=== PATIENT | female | born 1945 | race Caucasian/White ===

== ENCOUNTER 2021-01-12 14:02 | Inpatient (IN) | payer MEDICARE, SELFPAY ==
[2021-01-12] VITALS (9 sets, daily range): BP systolic 67–104; BP diastolic 39–59; PULSE 60–85; RESP 15–18; TEMP 36.1–36.6; O2SAT 94–100; BMI 20.2
--- NOTE | 2021-01-12 14:12 | ED.RN ---
IF PT NEEDS A RIDE HOME HER NEIGHBOR MURALI CAN BE CONTACTED AT [phone]
--- NOTE | 2021-01-12 14:23 | EKG12_ITS ---
Test Reason : HYPOTENSION Blood Pressure : / mmHG Vent. Rate : 061 BPM Atrial Rate : 061 BPM P-R Int : 192 ms QRS Dur : 090 ms QT Int : 446 ms P-R-T Axes : 080 073 062 degrees QTc Int : 448 ms Normal sinus rhythm Normal ECG Confirmed by PARDEEP VIVAR, CARMELINA ([id number]), proposal editor STEVE WEISS ([id number]) on 01/16/2021 2:14:26 PM Referred By: BERT Confirmed By:CARMELINA ROBERTO MD
--- NOTE | 2021-01-12 14:23 | CT_ITS ---
STUDY: CT BRAIN WITHOUT CONTRAST REASON FOR EXAM: Female, 75 years old. headache RADIATION DOSAGE (If Supplied By Facility): CTDIvol = ( 38.43 ) mGy, DLP = ( 683.87 ) mGycm TECHNIQUE: Transaxial CT imaging of the brain was performed without administration of intravenous contrast material. Individualized dose optimization techniques were used for this CT. COMPARISON: No relevant priors. FINDINGS: Normal soft tissue structures. Normal calvarium. There is mild cerebral atrophy with widening of the extra-axial spaces and ventricular dilatation. There are areas of decreased attenuation within the white matter tracts of the supratentorial brain, consistent with microvascular disease changes. Normal basal ganglia and thalami. Normal brainstem. Normal cerebellum. There is no intracranial hemorrhage. There are no findings of an acute ischemic infarction. Normal visualized paranasal sinuses. CT/Brain/Head without Contrast IMPRESSION: Chronic involutional changes of the brain. Electronically Signed: Bharat Rodriguez MD at 15:28 EDT Tel , Service support ,
[2021-01-12] MEDS: 0.9% Normal Saline 1,000 ML 1000 ML IV (14:39)
[2021-01-12 14:49] LABS: Basophil# 0.06 X10^3/uL; Basophil% 0.9 % (0-1); Eosinophil# 0.02 X10^3/uL; Eosinophils% 0.3 % (0-5); Hematocrit 40.1 % (37-47); Hemoglobin 13.4 g/dL (12.0-15.0); Lymphocyte % 27.8 % (19-41); Mean Corp Hgb Conc 33.4 g/dL (32-36); Mean Corpuscular Hgb 29.8 pg (27.0-32.0); Mean Corpuscular Volume 89.1 fL (81-99); Mean Platelet Vol. 10.1 fl (6.2-12.0); Monocyte# 0.62 X10^3/uL; Monocyte% 9.6 % (0-10); NRBC Flagged by Analyzer 0 % (0-5); Neutrophil # 3.96 X10^3/uL (2.7-7.7); Neutrophil % 61.1 % (47-70); Platelet Count 269 K/mm3 (150-450); RBC Distribution Width CV 12.5 % (11.6-14.6); White Blood Count 6.5 K/mm3 (4.4-11.0)
--- NOTE | 2021-01-12 14:50 | RAD_ITS ---
STUDY: X-RAY CHEST REASON FOR EXAM: Female, 75 years old. hypotension TECHNIQUE: Single AP portable view of the chest. COMPARISON: 03/10/2015 FINDINGS: The lungs are clear and expanded. There is no demonstrated pleural abnormality. Normal size heart. Normal mediastinum and shaun. Normal visualized pulmonary arteries. Normal visualized aortic arch and descending thoracic aorta. Normal visualized thoracic spine. Normal visualized ribs, clavicles, and shoulders. There is no demonstrated abnormality of the visualized soft tissue structures of the upper abdomen. RAD/Chest 1 View (Portable) IMPRESSION: Normal x-ray examination of the chest. Electronically Signed: Bharat Rodriguez MD at 15:28 EDT Tel , Service support ,
[2021-01-12 15:04] LABS: ALB/GLOB Ratio 1.4 RATIO (0.9-2.4); AST(SGOT) 24 U/L (15-37); Alanine Aminotransfer ALT/SGPT 27 U/L (13-56); Albumin, Serum 4.3 g/dL (3.2-5.0); Alkaline Phosphatase 87 U/L (45-117); Anion Gap 13 (5-15); BUN 91 mg/dL (7-18); BUN/Creat Ratio 25.6 RATIO (10-20); Calcium,Total 9.6 mg/dL (8.5-10.1); Chloride 105 mmol/L (98-107); Creatinine, Serum 3.55 mg/dL (0.55-1.02); EST Glomerular Filtration Rate 13 mL/min (>60); Est Glom Filt Rate - Afr Amer 16 mL/min (>60); Estimated Creatinine Clearance 9.56 ml/min; Glucose 92 mg/dL (74-106); Potassium 3.6 mmol/L (3.5-5.1); Protein, Total 7.3 g/dL (6.4-8.2); Sodium Level 133 mmol/L (136-145)
[2021-01-12 15:08] LABS: Lactic Acid 1.1 mmol/L (0.4-1.9)
--- NOTE | 2021-01-12 15:16 | ED.VISSUMM ---
- ER Visit Summary Date of Service: 01/12/21 Chief Complaint: [] History of Present Illness: The patient is a 75 F [low blood pressure the emergency department complaint of low blood pressure that she thinks has been going on for couple weeks. Patient feels lightheaded and dizzy at times. This point she woke up with a headache and pain in the back of her neck that seems to improved. Patient states that she had been treated for high blood pressure and had a hard time controlling that but then her blood pressure became too low. She complains of fatigue. She denies any blood in her stool or black tarry stool. She denies recent illness. She denies fever. She denies vomiting or diarrhea. She denies abdominal pain.] Physical Examination: [HEENT-PERRLA, EOMI. Cranial nerves II through XII grossly intact. TMs clear. Mucous membranes moist. No adenopathy. Cardiovascular-regular rate and rhythm without murmur or ectopy Lungs-clear to auscultation, chest wall stable without crepitus or subcu emphysema Abdomen-normoactive bowel sounds, soft. Patient has some mild diffuse abdominal discomfort. There is no rebound, rigidity, or peritoneal signs. Extremities-intact ?4, normal range of motion, normal pulses, atraumatic] Test Results: [EKG obtained on arrival showed a sinus rhythm with a ventricular rate of 61 bpm with no acute segment changes. CBC with differential obtained showed a white count of 6.5, hemoglobin 13, hematocrit 40, placed 269. Chemistries unremarkable. BUN was 91 and creatinine 3.55. CO2 was 15. Troponin less than 0.015. Chest x-ray 1 view obtained interpreted by myself as no acute disease process. CT scan of the brain without contrast evaluated by myself I do not appreciate any intracranial hemorrhage or acute disease process but official report pending radiology.] Emergency Department Course and Treatment: [IV line established. Patient was given a liter mostly fluid bolus.] Treatment Plan: [Patient's blood pressure did improve with IV fluids. Patient will be admitted.] Disposition: [Admit] Impression: [Hypotension Acute kidney injury] This note was generated with PressPad dictation software. It may contain incorrect words, spelling, and punctuation that were not noted in review of the chart prior to signing ED Disposition - Plan for ED Patient: Referrals: Kurt Harris MD [Primary Care Provider] -
[2021-01-12 15:47] LABS: Bacteria 0 SEEN /hpf (None Seen); Mucous, Urine 0 SEEN /hpf (<or=2+); Red Blood Cells-Urine 0 SEEN /hpf (0-5)
[2021-01-12 15:49] LABS: Color, Urine Yellow (Yellow); Glucose, Dipstick Normal (Normal); Ketone-Dipstick Negative (Negative); Leukocyte Esterase-Dipstick 25 /ul (Negative); Nitrite-Dipstick Negative (Negative); Occult Blood-Urine Negative /ul (Negative); Protein-Dipstick Negative (Negative); Specific Gravity, Urine 1.015 (1.002-1.030); Urine Bilirubin Dipstick Negative (Negative); Urine Clarity Clear (Clear); Urine Urobilinogen Normal (Normal)
--- NOTE | 2021-01-12 15:58 | HP.PCM_ITS ---
Problem List (1) Hypertension Status: Chronic (2) Hyperlipidemia Status: Chronic (3) Hypothyroidism Status: Chronic (4) Depression Status: Chronic History of Present Illness Date of Admission: 01/12/21 Chief Complaint: Lightheadedness, dizziness, low blood pressure. The patient is a 75 year old F who presents to the emergency room due to low blood pressure with associated lightheadedness, dizziness. Patient states she has had several falls at home related to this. She denies injury related to her falls. She denies known syncope. Patient states the symptoms have been ongoing for the past 2 weeks. She denies vision changes, speech changes, unilateral weakness. Patient explains an extensive dental history including history of implants with 1 implant remaining. She states she has been attempting for 2 years to get this out as it is painful and has become infected in the past. She has dentures that fit over the implant however she states it is very uncomfortable and they are poor fitting which causes her to eat very little. She states she is unable to eat meats and has very poor oral intake due to dentition. She has a past medical history of hypertension, hyperlipidemia, depression, hypothyroidism. Past Medical History Past Medical History (Chronic Problems): Chronic Problems Hypertension (Chronic) Hyperlipidemia (Chronic) Hypothyroidism (Chronic) Depression (Chronic) Allergies cephalexin [From Keflex] Allergy (Verified 01/12/21 14:04) NEEDS FOLLOW-UP citalopram Allergy (Verified 01/12/21 14:04) Angioedema sulfamethoxazole [From Bactrim] Allergy (Verified 01/12/21 14:04) NEEDS FOLLOW-UP trimethoprim [From Bactrim] Allergy (Verified 01/12/21 14:04) NEEDS FOLLOW-UP duloxetine [From Cymbalta] Adverse Reaction (Verified 01/12/21 14:04) Other MAKES PT FEEL GROGGY Home Medications: Ambulatory Orders Medication Instructions Recorded Ascorbic Acid [Vitamin C] 500 mg PO DAILY 01/12/21 Aspirin E.C. [Ecotrin] 81 mg PO DAILY@0800 01/12/21 Atorvastatin Calcium [Lipitor] 40 mg PO QHS 01/12/21 Fluoxetine [Prozac] 20 mg PO DAILY 01/12/21 Levothyroxine [Synthroid] 50 mcg PO DAILY 01/12/21 Lisinopril [Zestril] 5 mg PO DAILY 01/12/21 Melatonin 5 mg PO QHS 01/12/21 Mirabegron [Myrbetriq] 50 mg PO DAILY 01/12/21 Potassium Chloride [K-Tab ER] 40 meq PO BID 01/12/21 Vitamin E Acetate [Vitamin E] 200 unit PO DAILY 01/12/21 Surgical History: - - Left eye cataract, dental implants, hysterectomy, appendectomy, left scalp skin excision. 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 Denies: Chills, Fever HEENT: Reports: - - Dental pain. Denies: Head Aches, Sinus Congestion, Sinus Drainage Cardiovascular: Reports: Light Headedness. Denies: Chest Pain, Palpitations Respiratory: Denies: Cough, Shortness of breath at rest, Sputum production Gastrointestinal: Denies: Abdominal Pain, Nausea, Vomiting Genitourinary: Denies: Dysuria Musculoskeletal: Denies: Joint Pain, Joint Tenderness Skin: Denies: Rash, Wounds Neurological: Denies: Blurred vision, Double vision, Change in Speech, Slurred speech, Focal weakness, Numbness, Tingling Psychiatric: Reports: Depression Hematologic/ Lymphatic: Denies: Easy Bruising, Easy Bleeding VTE Information - Inpt Only VTE Present on Admission: No VTE Mechan Device Prophylaxis: None VTE Pharm Prophylaxis ordered?: Yes - Physical Exam Vitals/I&O's: Vital Signs Temp Pulse Resp BP Pulse Ox 97.9 F 63 16 104/59 L 96 01/12/21 15:54 01/12/21 15:54 01/12/21 15:54 01/12/21 15:54 01/12/21 15:54 Oxygen Delivery Method Room Air Weight: 99 lb Body Mass Index (BMI) 20.0 General: Alert, Oriented x3, Cooperative HEENT: Atraumatic, PERRLA, EOMI, Normocephalic Neck: Supple, No JVD, Negative Carotid Bruits Lungs: Clear to auscultation, Normal air movement Cardiovascular: Regular rate, No murmurs Abdomen: Bowel Sounds Present, Soft, Non Tender, Non-Distended Extremities: No clubbing, No cyanosis, No edema, Capillary Refill Less than 3 Seconds Skin: No rashes, No breakdown Musculoskeletal: No Tenderness to Palpation of Joints or Extremities, Cachexia, Muscle Wasting Neurological: Cranial nerves II-XII grossly intact, Neuro grossly intact Psych/Mental Status: Normal Affect, Appropriate Laboratory Results 01/12/21 14:25: WBC 6.5, RBC 4.50, Hgb 13.4, Hct 40.1, MCV 89.1, MCH 29.8, MCHC 33.4, RDW Std Deviation 41.0, RDW Coeff of Lobo 12.5, Plt Count 269, MPV 10.1, Immature Gran % (Auto) 0.300, Neut % (Auto) 61.1, Lymph % (Auto) 27.8, Burt % (Auto) 9.6, Eos % (Auto) 0.3, Baso % (Auto) 0.9, Absolute Neuts (auto) 4.0, Absolute Lymphs (auto) 1.80, Nucleated RBC % 0 01/12/21 14:25: Sodium 133 L, Potassium 3.6, Chloride 105, Carbon Dioxide 15.0 L , Anion Gap 13, BUN 91 H, Creatinine 3.55 H, Estim Creat Clear Calc 9.56, Est GFR (MDRD) Af Amer 16 L, Est GFR (MDRD) Non-Af 13 L, BUN/Creatinine Ratio 25.6 H , Glucose 92, Calcium 9.6, Total Bilirubin 0.50, AST 24, ALT 27, Alkaline Phosphatase 87, Troponin I < 0.015, Total Protein 7.3, Albumin 4.3, Globulin 3.0, Albumin/Globulin Ratio 1.4 01/12/21 14:25: Lactic Acid 1.1 01/12/21 14:25: Blood Type Pending, Antibody Screen Pending 01/12/21 15:42: Urine Color Yellow, Urine Clarity Clear, Urine pH 5.0, Ur Specific [place] 1.015, Urine Protein Negative, Urine Glucose (UA) Normal, Urine Ketones Negative, Urine Occult Blood Negative, Urine Nitrite Negative, Urine Bilirubin Negative, Urine Urobilinogen Normal, Ur Leukocyte Esterase 25 H, Urine RBC Pending, Urine WBC Pending, Ur Squamous Epith Cells Pending, Urine Bacteria Pending, Urine Mucus Pending Assessment/Plan 1. Hypotension-unclear etiology. Possibly due to hypovolemia. IV fluids. Hold BP regimen. Check orthostatic vitals in a.m. Check TSH. Obtain echocardiogram. 2. Acute kidney injury-suspect secondary to poor oral intake. IV fluids, trend BMP. If not improved, will need urine studies, renal ultrasound, etc. 3. Severe protein, malnutrition with significant weight loss, related to dental pain/poor fitting dentures with implant in place- -42 lb weight loss. Nutrition consult. Oral surgery referral. 4. Hypertension-BP regimen on hold. 5. Hyperlipidemia-continue statin. 6. Depression-continue fluoxetine. 7. Hypothyroidism-continue Synthroid regimen. Check TSH. DVT prophylaxis- Lovenox sc This patient was seen by TAMIKA Velazco under the supervision of Dr. Johnson.
[2021-01-12 16:01] LABS: Hyaline Cast 0-5 SEEN /lpf (0-5); Squamous Epithelial Cells - UA 0-5 SEEN /hpf (5-10); White Blood Cells 0-5 SEEN /hpf (0-5)
[2021-01-12 16:39] LABS: Magnesium 2.9 mg/dL (1.6-2.6)
[2021-01-12 16:43] LABS: Urine Sodium 16 mmol/L (Not Establ.)
[2021-01-12] MEDS: 0.9% Normal Saline 1,000 ML 125 ML IV ×2 (16:47→22:33)
[2021-01-12] MEDS: 0.9% Saline Lock 10 ML Syringe IV (17:08)
[2021-01-12] MEDS: Ondansetron 4 MG/2 ML Vial IV (17:08)
--- NOTE | 2021-01-12 18:16 | NT.THERAPY_ITS ---
Nutrition Therapy Report - History Nutrition Services has been consulted to:: Manage nutrient details of diet order Current diet / nutrition support order:: regular- minced/moist, ensure enlive 120mL 4x/day - Anthropometric Measurements Height:: 4 ft 11 in Weight:: 45.359 kg Body Mass Index (BMI):: 20.2 - Relevant Labs Relevant Labs:: Sodium 133 mmol/L (136-145) L 01/12/21 14:25 Carbon Dioxide 15.0 mmol/L (21.0-32.0) L 01/12/21 14:25 BUN 91 mg/dL (7-18) H 01/12/21 14:25 Creatinine 3.55 mg/dL (0.55-1.02) H 01/12/21 14:25 Est GFR (MDRD) Af Amer 16 mL/min (>60) L 01/12/21 14:25 Est GFR (MDRD) Non-Af 13 mL/min (>60) L 01/12/21 14:25 BUN/Creatinine Ratio 25.6 RATIO (10-20) H 01/12/21 14:25 Magnesium 2.9 mg/dL (1.6-2.6) H 01/12/21 14:25 - Assessment Food / Nutrition-Related History:: Pt describes poor PO intake COUNTER WEIGHER d/t poor dentition. Pt has dental implants to lower jaw that have been infected and partially removed. Pt states she consumes only soft foods, cannot eat meat d/t chewing difficulty. Was 118# ~3 months ago, CBW 100#-18#/15% wt loss is significant for severe malnutrition. Aside from poor dentition, pt appears peculiar about foods. Does not like anything crumbly touching throat. 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 Tries to drink 2 bottles of Premier Protein at home but doesn't like drink if it gets to room temperature but will not pour over ice to keep cold. Only likes vanilla flavor. - Nutrition Diagnosis Problem / Etiology / Signs & Symptoms (PES):: severe, cute malnutrition r/t inadequate energy intake d/t impaired dentition as evidenced by estimated PO intake meeting <75% of pts nutritional needs x 3 months, unintentional wt loss of 18#/15% x 3 months. Evidence of Malnutrition Exists:: Yes Severe PCM:: Acute Illness - Nutrition Intervention Nutrition Prescription:: [id number] calories/day (1.3xRMR). 45-55 g protein/day (1g/kg). 1125mL fluid/day (25mL/kg) - Food / Nutrient Delivery Interventions Summary of nutrition intervention:: Extensive discussion w/ pt regarding nutritional status. Pt agreeable to trying modified textures as ordered, but did not appear interested in dinner meat when presented. Agreeable to trying Ensure Enlive w/ medpass- vanilla only. Reviewed other ONS options- will try magic cup. Nutrition support ordered as / adjusted to:: continue regular diet (minced/moist) as pt tolerates; will continue ensure w/ medpass and add magic cup w/ lunch for additional protein/calories Nutrition education provided?: Yes - MNT Monitoring Further MNT monitoring and evaluation required?: Yes MNT Follow-up in:: 1-2 days
[2021-01-12] MEDS: Atorvastatin Calcium 40 MG Tablet PO (22:33)
[2021-01-12] MEDS: MELATONIN 10 MG TABLET 5 MG PO (22:33)
[2021-01-13] VITALS (14 sets, daily range): BP systolic 74–124; BP diastolic 38–93; PULSE 54–101; RESP 15–18; TEMP 36.6–36.7; O2SAT 93–100
--- NOTE | 2021-01-13 05:55 | ECHOD_ITS ---
Reason For Study: SYNCOPE/NEAR SYNCOPE Procedure This was a 2D Doppler, Color Flow transthoracic echocardiogram. The exam was of adequate technical quality. Exam performed portable in patient room. Left Ventricle Normal LV size. Left ventricular systolic function is normal. The estimated ejection fraction is 65 %. No evidence for diastolic dysfunction. No regional wall motion abnormalities noted. Right Ventricle Normal RV size. Normal systolic function. Atria Normal left atrium. Normal right atrium. No doppler evidence for ASD. Mitral Valve There is no mitral annular calcification. Mild diffuse mitral valve thickening. Trivial mitral valve insufficiency. Tricuspid Valve Normal tricuspid valve. Trivial tricuspid valve insufficiency. Right ventricular systolic pressure estimated to be 32 mmHg. Aortic Valve Trisinus/trileaflet aortic valve. Mild focal aortic valve calcification. Trivial aortic valve insufficiency. Pulmonic Valve The pulmonic valve is not well visualized. Great Vessels Normal sized aortic root. Pericardium/Pleural No pericardial effusion. MMode/2D Measurements & Calculations LVIDd: 3.5 cm IVSd: 0.81 cm Ao root diam: 3.0 cm LVIDs: 2.2 cm LVPWd: 0.90 cm RVDd: 2.6 cm FS: 39.2 % LAV(MOD-bp): 25.2 ml LVAd ap4: 22.3 cm2 SV(MOD-sp4): 43.6 ml LAV(MOD-bp) Indexed: 18.3 ml/m2 EDV(MOD-sp4): 58.5 ml LAV(MOD-sp2): 27.0 ml EDV(sp4-el): 59.1 ml LAV(MOD-sp4): 23.8 ml LVAs ap4: 9.6 cm2 ESV(MOD-sp4): 14.9 ml ESV(sp4-el): 14.4 ml EF(MOD-sp4): 74.6 % EF(sp4-el): 75.7 % SV(sp4-el): 44.7 ml LA A4 area: 11.3 cm2 LA dimension(2D): 3.4 cm RA A4 area: 8.5 cm2 Time Measurements MV dec time: 0.23 sec Doppler Measurements & Calculations MV E max prabhakar: 73.7 cm/sec Lat Peak E' Prabhakar: 11.0 cm/sec Med Peak E' Prabhakar: 8.4 cm/sec MV A max prabhakar: 92.5 cm/sec E/E' lat: 6.7 E/E' med: 8.8 MV E/A: 0.80 Ao V2 max: 146.1 cm/sec AI max prabhakar: 283.5 cm/sec LV V1 max: 137.5 cm/sec Ao max P.6 mmHg AI max P.1 mmHg LV V1 max P.6 mmHg AI dec slope: 206.0 cm/sec2 AI P1/2t: 403.0 msec PA V2 max: 102.9 cm/sec TR max prabhakar: 267.9 cm/sec TR max P.7 mmHg ECHO/Echo Complete Interpretation Summary Left ventricular systolic function is normal. The estimated ejection fraction is 65 %. Mild diffuse mitral valve thickening. Trivial mitral valve insufficiency. Trivial tricuspid valve insufficiency. Mild focal aortic valve calcification. Trivial aortic valve insufficiency. Right ventricular systolic pressure estimated to be 32 mmHg. No evidence for diastolic dysfunction. Ordering Physician: Carolann Johnson Referring Physician: JAYME SARAVIA Performed By: Shila Hitchcock RDCS
--- NOTE | 2021-01-13 05:55 | EKG12_ITS ---
Test Reason : AM EKG Blood Pressure : / mmHG Vent. Rate : 058 BPM Atrial Rate : 058 BPM P-R Int : 202 ms QRS Dur : 094 ms QT Int : 472 ms P-R-T Axes : 067 056 047 degrees QTc Int : 463 ms Sinus bradycardia Otherwise normal ECG When compared with ECG of 12-JAN-2021 14:32, MANUAL COMPARISON REQUIRED, DATA IS UNCONFIRMED Confirmed by PARDEEP VIVAR, CARMELINA ([id number]), editorial assistant KB CASTILLO ([id number]) on 01/18/2021 1:10:55 PM Referred By: DR ARMAS Confirmed By:CARMELINA ROBERTO MD
[2021-01-13 06:23] LABS: Absolute Lymphocyte Count 2.06 X10^3/uL (0.83-4.51); Absolute Neutrophil Count 2.3 X10^3/uL (2.0-7.7); Basophil# 0.02 X10^3/uL; Basophil% 0.4 % (0-1); Eosinophil# 0.05 X10^3/uL; Hematocrit 31.9 % (37-47); Hemoglobin 10.5 g/dL (12.0-15.0); Lymphocyte # 2.06 X10^3/ul (4.0); Lymphocyte % 40.8 % (19-41); Mean Corp Hgb Conc 32.9 g/dL (32-36); Mean Corpuscular Hgb 29.7 pg (27.0-32.0); Mean Corpuscular Volume 90.1 fL (81-99); Mean Platelet Vol. 10.4 fl (6.2-12.0); Monocyte# 0.57 X10^3/uL; Monocyte% 11.3 % (0-10); NRBC Flagged by Analyzer 0 % (0-5); Neutrophil # 2.34 X10^3/uL (2.7-7.7); Neutrophil % 46.3 % (47-70); Platelet Count 175 K/mm3 (150-450); RBC Distribution Width CV 12.4 % (11.6-14.6); RBC Distribution Width SD 41.1 fl (35.1-43.9); Red Blood Count 3.54 M/mm3 (4.2-5.4); White Blood Count 5.1 K/mm3 (4.4-11.0)
[2021-01-13] MEDS: 0.9% Normal Saline 1,000 ML 125 ML IV ×3 (06:35→22:37)
[2021-01-13] MEDS: Levothyroxine 50 MCG Tablet PO (06:36)
[2021-01-13 07:00] LABS: ALB/GLOB Ratio 1.4 RATIO (0.9-2.4); AST(SGOT) 22 U/L (15-37); Alanine Aminotransfer ALT/SGPT 20 U/L (13-56); Alkaline Phosphatase 60 U/L (45-117); Anion Gap 10 (5-15); BUN 82 mg/dL (7-18); BUN/Creat Ratio 34.3 RATIO (10-20); Calcium,Total 8.4 mg/dL (8.5-10.1); Chloride 115 mmol/L (98-107); Creatinine, Serum 2.39 mg/dL (0.55-1.02); EST Glomerular Filtration Rate 21 mL/min (>60); Est Glom Filt Rate - Afr Amer 25 mL/min (>60); Estimated Creatinine Clearance 15.14 ml/min; Globulin 2.2 g/dL (2.2-4.2); Glucose 69 mg/dL (74-106); Potassium 3.3 mmol/L (3.5-5.1); Protein, Total 5.2 g/dL (6.4-8.2); Sodium Level 139 mmol/L (136-145); T4 Free Direct 1.06 ng/dL (0.76-1.46); Thyroid Stim Hormone (TSH) 0.07 uIU/mL (0.358-3.74)
[2021-01-13] MEDS: Heparin Injection (Vial) 5,000 UNIT/ML VIAL 5000 UNIT SC ×2 (09:39→22:35)
[2021-01-13] MEDS: Multivitamins,Ther W-Minerals Tablet 1 TABLET PO (09:39)
[2021-01-13] MEDS: Potassium Chloride Oral Tablet 20 MEQ 40 MEQ PO (09:39)
[2021-01-13] MEDS: Aspirin E.C. 81 MG Tablet PO (09:39)
--- NOTE | 2021-01-13 12:05 | CASEMGMT ---
LILLI MCRAE Assessment: Face to Face with patient for initial transition planning/care coordination assessment. LILLI MCRAE introduced self and role at [facility], pt voices understanding and consents to assessment. Pt is sitting up in bed in no distress. Pt is A/Ox4 and answers all questions appropriately. Care providers, pharmacy, and demographics verified. Presentation: Pt reports being sent in by PCP's office for hypotension. Pt c/o headache/dizziness Admitting dx: Near syncope, hypotension, MOON PCP: Kimberly Specialists: Pt states has Urologist but cannot remember name. [facility]erred [facility]acy: [facility] Insurance: [facility] Prescription Benefit: [employer] Living Will/HPOA: Pt states does not have LW/HPOA but declines AD info at this time and states 'I just need to get with my process improvement specialist to get my will done.' LNOK: Casey Mcbride, son Living Arrangements: Pt states lives alone in 1 story home and states no concerns at home. Pt states her son works on [place] and does stay with her occasionally. Pt states is independent with ADL's. Transportation: Pt states drives self and states no transportation concerns. DME/HHC: Pt states has the following DME: cane, rollator, grab bars, and tub bench. Pt states no need for any further DME. Pt states no hx of HHC or SNF in the past. Pt is interested in HHC at discharge and provided a list of HHC providers including quality and resource use data and consistent with the pt's preferred geographic region, medical needs, and insurance network. Pt chose [facility] and message left with Sarah at [facility] to see if they can accept pt. Pt states no concerns with going home at time of discharge. Pt is retired. Pt states does not smoke cigarettes but is exposed to second hand smoke from son at times and states does not drink ETOH. Pt states no further concerns/needs. CM to follow for any further discharge planning/needs. Advised pt to ask for CM if any further questions/concerns/needs arise, voices understanding. Pt Goal: Home Plan: Home w/ HHC. [place] LILLI MCRAE
--- NOTE | 2021-01-13 13:21 | PCM.PROGNOTE ---
Subjective: Patient seen and examined. Reports continued lightheadedness which is worse with standing. Denies other symptoms or complaints. - Physical Exam Vitals/I&O's: Vital Signs Temp Pulse Resp BP Pulse Ox 98.0 F 57 L 18 107/38 L 100 01/13/21 09:50 01/13/21 09:50 01/13/21 09:50 01/13/21 09:50 01/13/21 10:15 Oxygen Delivery Method Room Air Weight: 105 lb 9.623 oz Body Mass Index (BMI) 20.2 Orthostatic Vital Signs Start: 01/12/21 21:47 Freq: 0600 Status: Active Protocol: Activity Type Activity Date Activity User E-Sign Co-Sign Detail Recorded Client Recorded Date Recorded By Document 01/13/21 06:22 [id number] 01/13/21 06:32 01/13/21 06:22 Orthostatic Vitals Standing -Blood Pressure (90/60-120/80) 121/93 H -Extremity Use Left Arm -Pulse Rate (60-100) 101 H Sitting -Blood Pressure (90/60-120/80) 74/42 L -Extremity Use Left Arm -Pulse Rate (60-100) 58 L Lying -Blood Pressure (90/60-120/80) 78/39 L -Extremity Use Left Arm -Pulse Rate (60-100) 54 L Intake and Output for Last 24 Hours 01/11/21 01/12/21 01/13/21 23:59 23:59 23:59 Intake Total 2099. 1697.91 / 1697.91 Output Total 900 / 900 Balance 797.91 / 797.91 General: Alert, Oriented x3, Cooperative HEENT: Atraumatic, PERRLA, EOMI, Normocephalic Neck: Supple, No JVD, Negative Carotid Bruits Lungs: Clear to auscultation, Normal air movement Cardiovascular: Regular rate, No murmurs Abdomen: Bowel Sounds Present, Soft, Non Tender, Non-Distended Extremities: No clubbing, No cyanosis, No edema, Capillary Refill Less than 3 Seconds Skin: No rashes, No breakdown Musculoskeletal: No Tenderness to Palpation of Joints or Extremities, Cachexia, Muscle Wasting Neurological: Cranial nerves II-XII grossly intact, Neuro grossly intact Psych/Mental Status: Normal Affect, Appropriate Laboratory Results 01/12/21 14:25: WBC 6.5, RBC 4.50, Hgb 13.4, Hct 40.1, MCV 89.1, MCH 29.8, MCHC 33.4, RDW Std Deviation 41.0, RDW Coeff of Lobo 12.5, Plt Count 269, MPV 10.1, Immature Gran % (Auto) 0.300, Neut % (Auto) 61.1, Lymph % (Auto) 27.8, [place] % (Auto) 9.6, Eos % (Auto) 0.3, Baso % (Auto) 0.9, Absolute Neuts (auto) 4.0, Absolute Lymphs (auto) 1.80, Nucleated RBC % 0 01/12/21 14:25: Sodium 133 L, Potassium 3.6, Chloride 105, Carbon Dioxide 15.0 L, Anion Gap 13, BUN 91 H, Creatinine 3.55 H, Estim Creat Clear Calc 9.56, Est GFR (MDRD) Af Amer 16 L, Est GFR (MDRD) Non-Af 13 L, BUN/Creatinine Ratio 25.6 H, Glucose 92, Calcium 9.6, Total Bilirubin 0.50, AST 24, ALT 27, Alkaline Phosphatase 87, Troponin I < 0.015, Total Protein 7.3, Albumin 4.3, Globulin 3.0, Albumin/Globulin Ratio 1.4 01/12/21 14:25: Lactic Acid 1.1 01/12/21 14:25: Blood Type A POSITIVE, Antibody Screen NEGATIVE 01/12/21 14:25: Magnesium 2.9 H 01/12/21 15:42: Urine Color Yellow, Urine Clarity Clear, Urine pH 5.0, Ur Specific [place] 1.015, Urine Protein Negative, Urine Glucose (UA) Normal, Urine Ketones Negative, Urine Occult Blood Negative, Urine Nitrite Negative, Urine Bilirubin Negative, Urine Urobilinogen Normal, Ur Leukocyte Esterase 25 H, Urine RBC 0 SEEN, Urine WBC 0-5 SEEN, Ur Squamous Epith Cells 0-5 SEEN, Urine Bacteria 0 SEEN, Hyaline Casts 0-5 SEEN, Urine Mucus 0 SEEN 01/12/21 15:42: Ur Random Sodium 16, Urine Creatinine 125.00 01/12/21 17:43: Troponin I < 0.015 01/12/21 20:02: Troponin I < 0.015 01/13/21 04:35: WBC 5.1, RBC 3.54 L, Hgb 10.5 L, Hct 31.9 L, MCV 90.1, MCH 29.7, MCHC 32.9, RDW Std Deviation 41.1, RDW Coeff of Lobo 12.4, Plt Count 175, MPV 10.4, Immature Gran % (Auto) 0.200, Neut % (Auto) 46.3 L, Lymph % (Auto) 40.8, [place] % (Auto) 11.3 H, Eos % (Auto) 1.0, Baso % (Auto) 0.4, Absolute Neuts (auto) 2.3, Absolute Lymphs (auto) 2.06, Nucleated RBC % 0 01/13/21 04:35: Sodium 139, Potassium 3.3 L, Chloride 115 H, Carbon Dioxide 14.0 L, Anion Gap 10, BUN 82 H, Creatinine 2.39 H, Estim Creat Clear Calc 15.14, Est GFR (MDRD) Af Amer 25 L, Est GFR (MDRD) Non-Af 21 L, BUN/Creatinine Ratio 34.3 H, Glucose 69 L, Calcium 8.4 L, Total Bilirubin 0.40, AST 22, ALT 20, Alkaline Phosphatase 60, Total Protein 5.2 L, Albumin 3.0 L, Globulin 2.2, Albumin/Globulin Ratio 1.4, TSH 0.07 L, Free T4 1.06 01/13/21 04:35: Vit D 1,25-Dihydroxy Pending Current Medications Acetaminophen (Acetaminophen 325 Mg Tablet) 650 mg PO Q6H PRN PRN PRN Reason: Pain Score 1-10/Temp > 100.7 F Al Hydroxide/Mg Hydroxide (Mag Hydrox/Al Hydrox/Simeth 30 Ml Udc) 30 ml PO Q6H PRN PRN PRN Reason: Gastric Burning Albuterol Sulfate (Albuterol 2.5 Mg/3 Ml Vial.Neb.) 2.5 mg INHALATION Q2H PRN PRN PRN Reason: Dyspnea, wheezing Aspirin (Aspirin E.C. 81 Mg Tablet) 81 mg PO DAILY@0800 [facility] Last Admin: 01/13/21 09:39 Dose: 81 mg Documented by: Atorvastatin Calcium (Atorvastatin Calcium 40 Mg Tablet) 40 mg PO QHS [facility] Last Admin: 01/12/21 22:33 Dose: 40 mg Documented by: Guaifenesin (Guaifenesin 10 Ml Udc (200mg/10ml)) 20 ml PO Q4H PRN PRN PRN Reason: COUGH Heparin Sodium (Porcine) (Heparin Injection (Vial) 5,000 Unit/Ml Vial) 5,000 unit SC Q12 [facility] Last Admin: 01/13/21 09:39 Dose: 5,000 unit Documented by: Hydralazine HCl (Hydralazine 20 Mg/Ml Vial) 10 mg IV Q4H PRN PRN PRN Reason: SBP > 160 Sodium Chloride () 1,000 mls @ 125 mls/hr IV .Q8H [facility] Last Infusion: 01/13/21 10:36 Dose: 125 mls/hr Documented by: Levothyroxine Sodium (Levothyroxine 50 Mcg Tablet) 50 mcg PO DAILY@0600 [facility] Last Admin: 01/13/21 06:36 Dose: 50 mcg Documented by: Magnesium Hydroxide (Magnesium Hydroxide 30 Ml Udc) 30 ml PO DAILY PRN PRN PRN Reason: Constipation Melatonin (Melatonin 10 Mg Tablet) 5 mg PO QHS [facility] Last Admin: 01/12/21 22:33 Dose: 5 mg Documented by: Multivitamins/Minerals (Multivitamins,Ther W-[facility]inerals Tablet) [facility] Admin: 01/13/21 09:39 Dose: 1 tablet Documented by: Nitroglycerin (Nitroglycerin (Inpatient Use) 0.4 Mg Tab.Subl) 0.4 mg SL Q5M PRN PRN Reason: CARDIAC/CHEST PAIN Nutritional Formula (Lactose Free) (Ensure Enlive 120 Ml Liquid) 120 ml PO 4X/DAY [facility] Last Admin: 01/13/21 12:44 Dose: 120 ml Documented by: Ondansetron HCl (Ondansetron 4 Mg/2 Ml Vial) 4 mg IV Q8H PRN PRN PRN Reason: NAUSEA/VOMITING Last Admin: 01/12/21 17:08 Dose: 4 mg Documented by: Prochlorperazine Edisylate (Prochlorperazine 10 Mg/2 Ml Vial) 5 mg IV Q4H PRN PRN PRN Reason: Breakthrough Nausea/Vomiting Psyllium Hydrophilic Mucilloid (Psyllium 1 Packet) 1 packet PO DAILY PRN PRN PRN Reason: Constipation Senna/Docusate Sodium (Senna/Docusate Sodium 1 Tablet) 2 tablet PO BID PRN PRN PRN Reason: Constipation Sodium Chloride (0.9% Saline Lock 10 Ml Syringe) 10 - 40 ml IV UD PRN PRN Reason: SALINE FLUSH Last Admin: 01/12/21 17:08 Dose: 10 ml Documented by: Throat Lozenges (Benzocaine/Menthol 1 Lozenge) 1 lozenge MUCOUS MEM Q2H PRN PRN PRN Reason: SORE THROAT Medical Necessity - Tobacco Use Smoking Status: Former smoker Tobacco Use: Cigarettes Assessment/Plan 1. Hypotension, near syncope-unclear etiology. Suspect due to hypovolemia, MOON. IV fluids. Hold BP regimen. Repeat orthostatic vitals in a.m. echocardiogram demonstrates an EF of 65%. PT/OT. 2. Acute kidney injury-suspect secondary to poor oral intake. IV fluids, trend BMP. Improving with IV fluids. Creatinine 0.73 12/23/20 by PCP. 3. Severe protein calorie malnutrition with significant weight loss, related to dental pain/poor fitting dentures with implant in place- -42 lb weight loss. Nutrition consult. Oral surgery referral. 4. Hypertension-BP regimen on hold. 5. Hyperlipidemia-continue statin. 6. Depression-continue fluoxetine. 7. Hypothyroidism-continue Synthroid regimen. DVT prophylaxis- Lovenox sc This patient was seen by TAMIKA Velazco under the supervision of Dr. Andrea.
--- NOTE | 2021-01-13 13:23 | US_ITS ---
STUDY: RENAL ULTRASOUND - COMPLETE REASON FOR EXAM: Female, 75 years old. renal insuff TECHNIQUE: Ultrasound evaluation of the kidneys was performed with real-time and static deleon-scale imaging. COMPARISON: None. FINDINGS: RIGHT KIDNEY: Normal location of the right kidney, which is normal in size. The right kidney measures 7.8 cm. Increased echogenicity renal cortex consistent with chronic medical renal disease or advanced age. The renal cortex measures 1.3 cm. There is no right renal mass or cyst. There are no right renal calculi. There is no right hydronephrosis. DISTAL RIGHT URETER: There is non-visualization of the distal right ureter. There is no demonstrated right ureterovesical junction calculus. There is a visualized right ureteral jet. LEFT KIDNEY: Normal location of the left kidney, which is normal in size. The left kidney measures 8.5 cm. Increased echogenicity renal cortex consistent with chronic medical renal disease or enhanced age. The renal cortex measures 1.0 cm. There is no left renal mass or cyst. There are no left renal calculi. There is no left hydronephrosis. DISTAL LEFT URETER: There is non-visualization of the distal left ureter. There is no demonstrated left ureterovesical junction calculus. There is a visualized left ureteral jet. BLADDER: The distended urinary bladder has a volume of 33 ml. The empty urinary bladder has a volume of ml. There is a normal wall thickness of the distended urinary bladder. There is no demonstrated mass within the urinary bladder. There are no demonstrated bladder calculi. US/Kidney and Bladder IMPRESSION: Chronic medical renal disease without hydronephrosis to suggest obstruction. Electronically Signed: Bharat Rodriguez MD at 15:33 EDT Tel , Service support ,
[2021-01-13] MEDS: Potassium Chloride Oral Tablet 10 MEQ 40 MEQ PO (14:18)
[2021-01-13] MEDS: 0.9% Saline Lock 10 ML Syringe IV (14:19)
[2021-01-13] MEDS: MELATONIN 10 MG TABLET 5 MG PO (22:35)
[2021-01-13] MEDS: Atorvastatin Calcium 40 MG Tablet PO (22:35)
[2021-01-14] VITALS (8 sets, daily range): BP systolic 119–144; BP diastolic 55–74; PULSE 62–79; RESP 16–18; TEMP 36.6–37; O2SAT 95–100
[2021-01-14] MEDS: 0.9% Normal Saline 1,000 ML 125 ML IV (06:08)
[2021-01-14] MEDS: Levothyroxine 50 MCG Tablet PO (06:10)
[2021-01-14 06:45] LABS: Hematocrit 31.6 % (37-47); Hemoglobin 10.2 g/dL (12.0-15.0); Mean Corp Hgb Conc 32.3 g/dL (32-36); Mean Corpuscular Hgb 29.1 pg (27.0-32.0); Mean Platelet Vol. 10.2 fl (6.2-12.0); Platelet Count 173 K/mm3 (150-450); RBC Distribution Width SD 42.2 fl (35.1-43.9); Red Blood Count 3.51 M/mm3 (4.2-5.4)
[2021-01-14] MEDS: Multivitamins,Ther W-Minerals Tablet 1 TABLET PO (07:56)
[2021-01-14] MEDS: Aspirin E.C. 81 MG Tablet PO (07:56)
[2021-01-14 08:16] LABS: Anion Gap 7 (5-15); BUN 53 mg/dL (7-18); BUN/Creat Ratio 36.3 RATIO (10-20); Calcium,Total 8.2 mg/dL (8.5-10.1); Chloride 131 mmol/L (98-107); Creatinine, Serum 1.46 mg/dL (0.55-1.02); EST Glomerular Filtration Rate 37 mL/min (>60); Est Glom Filt Rate - Afr Amer 45 mL/min (>60); Estimated Creatinine Clearance 24.22 ml/min; Glucose 105 mg/dL (74-106); Potassium 3.7 mmol/L (3.5-5.1); Sodium Level 152 mmol/L (136-145)
[2021-01-14] MEDS: Dext 5%-0.45% NS 1,000 ML 100 ML IV (11:42)
[2021-01-14 14:34] LABS: Anion Gap 8 (5-15); BUN 44 mg/dL (7-18); BUN/Creat Ratio 33.3 RATIO (10-20); Chloride 124 mmol/L (98-107); Creatinine, Serum 1.32 mg/dL (0.55-1.02); EST Glomerular Filtration Rate 42 mL/min (>60); Est Glom Filt Rate - Afr Amer 50 mL/min (>60); Estimated Creatinine Clearance 26.79 ml/min; Glucose 107 mg/dL (74-106); Potassium 3.4 mmol/L (3.5-5.1); Sodium Level 146 mmol/L (136-145)
--- NOTE | 2021-01-14 14:47 | DCINST_ITS ---
- Discharge Diagnoses Current Active Problems: Current Active and Chronic Problems Hypertension (Chronic) Hyperlipidemia (Chronic) Hypothyroidism (Chronic) Depression (Chronic) You will use the following diet at home:: No restrictions Discharge Activity: Return to Normal Activity Call your doctor if you observe: Shortness of breath, Dizziness, Fainting spells, Chest pain Additional Instructions: You will need repeat lab work on Saturday or Saturday next week by primary care provider to reassess kidney function. Allergies/Adverse Reactions: Allergies cephalexin [From Keflex] Allergy (Verified 01/12/21 14:04) NEEDS FOLLOW-UP citalopram Allergy (Verified 01/12/21 14:04) Angioedema sulfamethoxazole [From Bactrim] Allergy (Verified 01/12/21 14:04) NEEDS FOLLOW-UP trimethoprim [From Bactrim] Allergy (Verified 01/12/21 14:04) NEEDS FOLLOW-UP duloxetine [From Cymbalta] Adverse Reaction (Verified 01/12/21 14:04) Other MAKES PT FEEL GROGGY Medications to take at Discharge Ascorbic Acid [Vitamin C] 500 mg PO DAILY 01/12/21 Aspirin E.C. [Ecotrin] 81 mg PO DAILY@0800 01/12/21 Atorvastatin Calcium [Lipitor] 40 mg PO QHS 01/12/21 Fluoxetine [Prozac] 20 mg PO DAILY 01/12/21 Levothyroxine [Synthroid] 50 mcg PO DAILY 01/12/21 Melatonin 5 mg PO QHS 01/12/21 Mirabegron [Myrbetriq] 50 mg PO DAILY 01/12/21 Potassium Chloride [K-Tab ER] 40 meq PO DAILY 01/12/21 Vitamin E Acetate [Vitamin E] 200 unit PO DAILY 01/12/21 Primary Care Physician: Kurt Harris MD [Primary Care Provider] - Please follow up with your Primary Care Physician in: 1 Week Test Results: Test results from this visit will be discussed in further detail at your follow- up appointment, if applicable. Please Follow Up With: Cruzito Huerta DDS - Oral surgeon When: Call for appointment Proposed Discharge Date: 01/14/21
--- NOTE | 2021-01-14 14:50 | DS.PCM_ITS ---
Discharge Date and Diagnosis Date of Admission: 01/12/21 Date of Discharge: 01/14/21 - Primary Discharge Diagnosis Acute Problems: 1. Hypotension, near syncope 2. Acute kidney injury 3. Severe protein calorie malnutrition with significant weight loss, related to dental pain/poor fitting dentures with implant in place 4. Hypertension 5. Hyperlipidemia 6. Depression 7. Hypothyroidism - Secondary Discharge Diagnosis Chronic Problems: Chronic Problems Hypertension (Chronic) Hyperlipidemia (Chronic) Hypothyroidism (Chronic) Depression (Chronic) Hospital Course and Treatment Imaging Results: Diagnostic Data Brain CT 01/12/21 14:23 IMPRESSION: Chronic involutional changes of the brain. Electronically Signed: Bharat Rodriguez MD at 15:28 EDT Tel , Service support , Chest X-Ray 01/12/21 14:50 IMPRESSION: Normal x-ray examination of the chest. Electronically Signed: Bharat Rodriguez MD at 15:28 EDT Tel , Service support , Echocardiogram 01/13/21 05:55 Interpretation Summary Left ventricular systolic function is normal. The estimated ejection fraction is 65 %. Mild diffuse mitral valve thickening. Trivial mitral valve insufficiency. Trivial tricuspid valve insufficiency. Mild focal aortic valve calcification. Trivial aortic valve insufficiency. Right ventricular systolic pressure estimated to be 32 mmHg. No evidence for diastolic dysfunction. Ordering Physician: Carolann Johnson Referring Physician: JAYME SARAVIA Performed By: Shila Hitchcock RDCS Renal Ultrasound 01/13/21 13:23 IMPRESSION: Chronic medical renal disease without hydronephrosis to suggest obstruction. Electronically Signed: Bharat Rodriguez MD at 15:33 EDT Tel , Service support , Operations: None Procedures: 2-D Echocardiogram Summary of Care Provided: The patient is a 75 year old F admitted 01/12/21 due to lightheadedness, dizziness and low blood pressure. 1. Hypotension, near syncope-Due to hypovolemia, MOON. Improved with IV fluids. Echocardiogram demonstrates an EF of 65%. Troponin negative. Previously on lisinopril, discontinue further blood pressure medications. Follow-up with PCP in 3 to 5 days. Home with home health at discharge. 2. Acute kidney injury-suspect secondary to poor oral intake. Improving with IV fluids. Creatinine 0.73 12/23/20 by PCP. Creatinine on admission 3.55. Creatinine at discharge 1.32. Recommend repeat BMP in 2 to 3 days by PCP for ongoing assessment. 3. Severe protein calorie malnutrition with significant weight loss, related to dental pain/poor fitting dentures with implant in place- -42 lb weight loss. Nutrition consulted during admission. Oral surgery referral at discharge. 4. Hypertension-BP regimen on hold. 5. Hyperlipidemia-continue statin. 6. Depression-continue fluoxetine. 7. Hypothyroidism-continue Synthroid regimen. General: Alert, Oriented x3, Cooperative HEENT: Atraumatic, PERRLA, EOMI, Normocephalic Neck: Supple, No JVD, Negative Carotid Bruits Lungs: Clear to auscultation, Normal air movement Cardiovascular: Regular rate, No murmurs Abdomen: Bowel Sounds Present, Soft, Non Tender, Non-Distended Extremities: No clubbing, No cyanosis, No edema, Capillary Refill Less than 3 Seconds Skin: No rashes, No breakdown Musculoskeletal: No Tenderness to Palpation of Joints or Extremities, Cachexia, Muscle Wasting Neurological: Cranial nerves II-XII grossly intact, Neuro grossly intact Psych/Mental Status: Normal Affect, Appropriate Patient seen and examined prior to discharge. Physical assessment as noted above. Patient is stable for discharge with follow up recommendations as noted above. This patient was seen by TAMIKA Velazco under the supervision of Dr. Andrea. - Physical Exam Vitals/I&O's: Vital Signs Temp Pulse Resp BP Pulse Ox 98 F 77 18 123/68 H 98 01/14/21 07:48 01/14/21 07:48 01/14/21 07:48 01/14/21 07:48 01/14/21 08:02 Oxygen Delivery Method Room Air Weight: 103 lb 2.821 oz Body Mass Index (BMI) 20.2 Orthostatic Vital Signs Start: 01/12/21 21:47 Freq: 0600 Status: Active Protocol: Activity Type Activity Date Activity User E-Sign Co-Sign Detail Recorded Client Recorded Date Recorded By Document 01/14/21 05:53 EF [id number] 01/14/21 06:08 EF 01/14/21 05:53 Orthostatic Vitals Standing -Blood Pressure (90/60-120/80) 132/55 H -Extremity Use Left Arm -Pulse Rate (60-100) 79 Sitting -Blood Pressure (90/60-120/80) 144/59 H -Extremity Use Left Arm -Pulse Rate (60-100) 74 Lying -Blood Pressure (90/60-120/80) 119/71 -Extremity Use Left Arm -Pulse Rate (60-100) 66 Intake and Output for Last 24 Hours 01/12/21 01/13/21 01/14/21 23:59 23:59 23:59 Intake Total 1999. / 2099. 3348.32 / 3348.32 2704.88 / 2704.88 Output Total 900 / 900 4 / 4 Balance 1999. / 185.00 2448.32 / 2448.32 2700.88 / 2700.88 Laboratory Results 01/14/21 05:29: WBC 5.0, RBC 3.51 L, Hgb 10.2 L, Hct 31.6 L, MCV 90.0, MCH 29.1, MCHC 32.3, RDW Std Deviation 42.2, RDW Coeff of Lobo 13.0, Plt Count 173, MPV 10.2 01/14/21 05:29: Sodium 152 H, Potassium 3.7, Chloride 131 H*, Carbon Dioxide 14.0 L, Anion Gap 7, BUN 53 H, Creatinine 1.46 H, Estim Creat Clear Calc 24.22, Est GFR (MDRD) Af Amer 45 L, Est GFR (MDRD) Non-Af 37 L, BUN/Creatinine Ratio 36.3 H, Glucose 105, Calcium 8.2 L 01/14/21 14:14: Sodium 146 H, Potassium 3.4 L, Chloride 124 H, Carbon Dioxide 14.0 L, Anion Gap 8, BUN 44 H, Creatinine 1.32 H, Estim Creat Clear Calc 26.79, Est GFR (MDRD) Af Amer 50 L, Est GFR (MDRD) Non-Af 42 L, BUN/Creatinine Ratio 33.3 H, Glucose 107 H, Calcium 8.0 L Current Medications Acetaminophen (Acetaminophen 325 Mg Tablet) 650 mg PO Q6H PRN PRN PRN Reason: Pain Score 1-10/Temp > 100.7 F Al Hydroxide/Mg Hydroxide (Mag Hydrox/Al Hydrox/Simeth 30 Ml Udc) 30 ml PO Q6H PRN PRN PRN Reason: Gastric Burning Albuterol Sulfate (Albuterol 2.5 Mg/3 Ml Vial.Neb.) 2.5 mg INHALATION Q2H PRN PRN PRN Reason: Dyspnea, wheezing Aspirin (Aspirin E.C. 81 Mg Tablet) 81 mg PO DAILY@0800 [facility] Last Admin: 01/14/21 07:56 Dose: 81 mg Documented by: Atorvastatin Calcium (Atorvastatin Calcium 40 Mg Tablet) 40 mg PO QHS [facility] Last Admin: 01/13/21 22:35 Dose: 40 mg Documented by: Guaifenesin (Guaifenesin 10 Ml Udc (200mg/10ml)) 20 ml PO Q4H PRN PRN PRN Reason: COUGH Heparin Sodium (Porcine) (Heparin Injection (Vial) 5,000 Unit/Ml Vial) 5,000 unit SC Q12 [facility] Last Admin: 01/14/21 10:27 Dose: Not Given Documented by: Hydralazine HCl (Hydralazine 20 Mg/Ml Vial) 10 mg IV Q4H PRN PRN PRN Reason: SBP > 160 Dextrose/Sodium Chloride () 1,000 mls @ 150 mls/hr IV .Q6H40M [facility] Last Admin: 01/14/21 11:42 Dose: 100 mls/hr Documented by: Levothyroxine Sodium (Levothyroxine 50 Mcg Tablet) 50 mcg PO DAILY@0600 [facility] Last Admin: 01/14/21 06:10 Dose: 50 mcg Documented by: Magnesium Hydroxide (Magnesium Hydroxide 30 Ml Udc) 30 ml PO DAILY PRN PRN PRN Reason: Constipation Melatonin (Melatonin 10 Mg Tablet) 5 mg PO QHS [facility] Last Admin: 01/13/21 22:35 Dose: 5 mg Documented by: Multivitamins/Minerals (Multivitamins,Ther W-Minerals Tablet) [facility] Last Admin: 01/14/21 07:56 Dose: 1 tablet Documented by: Nitroglycerin (Nitroglycerin (Inpatient Use) 0.4 Mg Tab.Subl) 0.4 mg SL Q5M PRN PRN Reason: CARDIAC/CHEST PAIN Nutritional Formula (Lactose Free) (Ensure Enlive 120 Ml Liquid) 120 ml PO 4X/DAY [facility] Last Admin: 01/14/21 10:27 Dose: Not Given Documented by: Ondansetron HCl (Ondansetron 4 Mg/2 Ml Vial) 4 mg IV Q8H PRN PRN PRN Reason: NAUSEA/VOMITING Last Admin: 01/12/21 17:08 Dose: 4 mg Documented by: Prochlorperazine Edisylate (Prochlorperazine 10 Mg/2 Ml Vial) 5 mg IV Q4H PRN PRN PRN Reason: Breakthrough Nausea/Vomiting Psyllium Hydrophilic Mucilloid (Psyllium 1 Packet) 1 packet PO DAILY PRN PRN PRN Reason: Constipation Senna/Docusate Sodium (Senna/Docusate Sodium 1 Tablet) 2 tablet PO BID PRN PRN PRN Reason: Constipation Sodium Chloride (0.9% Saline Lock 10 Ml Syringe) 10 - 40 ml IV UD PRN PRN Reason: SALINE FLUSH Last Admin: 01/13/21 14:19 Dose: 10 ml Documented by: Throat Lozenges (Benzocaine/Menthol 1 Lozenge) 1 lozenge MUCOUS MEM Q2H PRN PRN PRN Reason: SORE THROAT Discharge Diet: No Restrictions Discharge Activity: Return to Normal Activity Call your doctor if you observe: Shortness of breath, Dizziness, Fainting spells, Chest pain Home Medications: Medications to take at Discharge Ascorbic Acid [Vitamin C] 500 mg PO DAILY 01/12/21 Aspirin E.C. [Ecotrin] 81 mg PO DAILY@0800 01/12/21 Atorvastatin Calcium [Lipitor] 40 mg PO QHS 01/12/21 Fluoxetine [Prozac] 20 mg PO DAILY 01/12/21 Levothyroxine [Synthroid] 50 mcg PO DAILY 01/12/21 Melatonin 5 mg PO QHS 01/12/21 Mirabegron [Myrbetriq] 50 mg PO DAILY 01/12/21 Potassium Chloride [K-Tab ER] 40 meq PO DAILY 01/12/21 Vitamin E Acetate [Vitamin E] 200 unit PO DAILY 01/12/21 Primary Care Physician: Jayme Saravia MD [Primary Care Provider] - Please follow up with your Primary Care Physician in: 1 Week Please Follow Up With: Cruzito Huerta DDS - Oral surgeon When: Call for appointment Disposition: Home with Home Health Minutes spent on discharge:: 35 Patient Condition:: Stable Medical Necessity - Tobacco Use Smoking Status: Former smoker Tobacco Use: Cigarettes Meaningful Use Info Meaningful Use Diagnoses (Choose all that apply): None applicable
--- NOTE | 2021-01-14 15:11 | PCA ---
[facility] and spoke with oncall LILLI Baird and notified her of d/c.
--- NOTE | 2021-01-14 16:18 | NURSING ---
Spoke with Son Jose Juan via phone. Informed of patient discharge. Update given. Reviewed DC instructions with patient and Son. Son coming to take patient home. Discharge instructions reviewed. No questions at this time. IV discontinued. Tip intake. Patient belongings packed for discharge. Vital signs stable.
[2021-01-16 16:41] LABS: Vitamin D 1,25-Dihydroxy 21.5 pg/mL (19.9-79.3)
== END 2021-01-14 17:24 | disposition home health service (06) | DRG 640 ==
LOC: ED 15:14 → PCU 15:52
PROVIDERS: Nurse Practitioner Family; Admitting Provider Family Medicine; Emergency Provider Emergency Medicine; PCP Family Medicine; Visit Provider Internal Medicine
DX: E86.1 Hypovolemia (principal); E43 Unspecified severe protein-calorie malnutrition; N17.9 Acute kidney failure, unspecified; M27.69 Other endosseous dental implant failure; R55 Syncope and collapse; I95.9 Hypotension, unspecified; E86.0 Dehydration; K08.89 Other specified disorders of teeth and supporting structures; I10 Essential (primary) hypertension; E78.5 Hyperlipidemia, unspecified; E03.9 Hypothyroidism, unspecified; R29.6 Repeated falls; F32.9 Major depressive disorder, single episode, unspecified; F41.9 Anxiety disorder, unspecified; Z68.20 Body mass index [BMI] 20.0-20.9, adult; Z97.2 Presence of dental prosthetic device (complete) (partial); Z79.82 Long term (current) use of aspirin; Z79.890 Hormone replacement therapy; Z79.899 Other long term (current) drug therapy; Z87.891 Personal history of nicotine dependence
CPT/HCPCS: 36415; 70450; 71045; 76770; 80048; 80053; 81001; 82570; 82652; 83605; 83735; 84300; 84439; 84443; 84484; 85025; 85027; 86850; 86900; 86901; 93005; 93306; 97110; 97162; 97165; 97530; 97802; 99251; 99283; J7030; A4216; G0463; J2405; J7799

== ENCOUNTER 2021-01-23 17:38 | Outpatient (RCR) | payer MEDICARE, SELFPAY ==
[2021-01-12 18:22] VITALS: BMI 20.2
[2021-01-23 18:34] LABS: ALB/GLOB Ratio 1.3 RATIO (0.9-2.4); AST(SGOT) 22 U/L (15-37); Alanine Aminotransfer ALT/SGPT 32 U/L (13-56); Albumin, Serum 3.3 g/dL (3.2-5.0); Alkaline Phosphatase 75 U/L (45-117); Anion Gap 5 (5-15); BUN 8 mg/dL (7-18); BUN/Creat Ratio 8.6 RATIO (10-20); Calcium,Total 8.8 mg/dL (8.5-10.1); Chloride 110 mmol/L (98-107); Creatinine, Serum 0.93 mg/dL (0.55-1.02); EST Glomerular Filtration Rate 62 mL/min (>60); Est Glom Filt Rate - Afr Amer 75 mL/min (>60); Globulin 2.6 g/dL (2.2-4.2); Glucose 100 mg/dL (74-106); Protein, Total 5.9 g/dL (6.4-8.2); Sodium Level 140 mmol/L (136-145)
[2021-01-23 19:11] LABS: Potassium 2.7 mmol/L (3.5-5.1)
== END 2021-02-03 23:59 ==
LOC: HHLAB 17:38
PROVIDERS: PCP Family Medicine; Referring Provider Family Medicine; Visit Provider Family Medicine
DX: E46 Unspecified protein-calorie malnutrition (principal); I95.2 Hypotension due to drugs; T46.5X5D Adverse effect of other antihypertensive drugs, subsequent encounter
CPT/HCPCS: 80053

== ENCOUNTER 2024-01-31 15:19 | Emergency (ER) | payer MEDICARE, SELFPAY ==
[2024-01-31 15:19] VITALS: BP 102/88; PULSE 122; RESP 18; TEMP 36.1; O2SAT 100; BMI 20.9
--- NOTE | 2024-01-31 15:32 | RAD_ITS ---
EXAM: XR RIGHT FOOT COMPLETE, 3 OR MORE VIEWS CLINICAL INDICATION: pain TECHNIQUE: Frontal, lateral and oblique views of the right foot. COMPARISON: No relevant prior studies available. FINDINGS: BONES/JOINTS: No acute abnormality. SOFT TISSUES: Normal. No soft tissue swelling or gas. No radiopaque foreign body. RAD/Foot min 3 Views IMPRESSION: Intact right foot. Electronically Signed: Kelvin Castellanos MD at 16:44 EDT ,
--- NOTE | 2024-01-31 15:32 | EX.ED.DYSGE1 ---
HPI History of Present Illness Chief Complaint: Lower Extremity Injury Detail of Chief Complaint: Right foot pain and redness Informant: patient Onset/Context/Timing Onset: Days Timing: Intermittent Narrative Narrative: Patient presents secondary to right foot redness and tingling. She states when she took her shoe off a couple days ago her right foot was read as if she had a red sock on. She had pain over the first MTP joint. She laid down in her bed and raised her feet on a pillow. Symptoms gradually resolved. She continues to have some very slight erythema over the posterior calcaneus and some slight bruising along the instep medially. She denies any known injury. She was not wearing different shoes than normal. [facility] Medical History (Updated 01/31/24 @ 16:[address] Yelena Baez MD) Depression Hyperlipidemia Hypertension Hypothyroidism Home Medications ascorbic acid (vitamin C) 500 mg tablet 500 mg PO DAILY supplement 01/12/21 [History Last Taken 01/11/21] aspirin 81 mg tablet,delayed release 81 mg PO DAILY@0800 health maintenance 01/12/21 [History Last Taken 01/11/21] atorvastatin 40 mg tablet 40 mg PO QHS cholesterol 01/12/21 [History Last Taken 01/11/21] fluoxetine 20 mg capsule 20 mg PO DAILY mental health 01/12/21 [History Last Taken 01/11/21] levothyroxine 50 mcg tablet 50 mcg PO DAILY thyroid 01/12/21 [History Last Taken 01/11/21] melatonin 5 mg capsule 5 mg PO QHS sleep 01/12/21 [History Last Taken 01/11/21] mirabegron 50 mg tablet,extended release 24 hr 50 mg PO DAILY Check with primary doctor 01/12/21 [History Last Taken 01/11/21] potassium chloride 20 mEq tablet,extended release 40 meq PO DAILY supplement 01/12/21 [History Last Taken 01/11/21] vitamin E acetate 134 mg (200 unit) capsule 200 unit PO DAILY supplement 01/12/21 [History Last Taken 01/11/21] Allergy/AdvReac Type Severity Reaction Status Date / Time cephalexin [From Keflex] Allergy NEEDS Verified 01/31/24 15:24 FOLLOW-UP citalopram Allergy Angioedema Verified 01/31/24 15:24 sulfamethoxazole Allergy NEEDS Verified 01/31/24 15:24 [From Bactrim] FOLLOW-UP trimethoprim [From Bactrim] Allergy NEEDS Verified 01/31/24 15:24 FOLLOW-UP duloxetine [From Cymbalta] AdvReac Other Verified 01/31/24 15:24 Social History Smoking Status: Light Smoker (<10/day) ROS ROS ED Constitutional Constitutional ED: Denies chills or fever(s) Eyes Eyes: Denies change in vision Cardiovascular Cardiovascular: Denies chest pain or palpitations Respiratory/Chest Respiratory/Chest: Denies cough or dyspnea Gastrointestinal Gastrointestinal: Denies abdominal pain or vomiting Musculoskeletal Musculoskeletal: Reports arthralgias Integumentary Denies Abrasions Neurologic Neurologic: Denies weakness Psychiatric Psychiatric: Denies anxiety or depression EXAM Physical Exam Const Vital Signs: 01/31/24 15:19 Temperature 97 F L Temperature Source Temporal Pulse Rate 122 H Respiratory Rate 18 Blood Pressure 102/88 H Blood Pressure Mean 92 Pulse Ox 100 Oxygen Delivery Method Room Air Positive well nourished and well developed General Appearance ED: well developed HEENT Reports moist mucous membranes Eyes EOMs intact bilaterally Chest Wall inspection of chest normal and palpation of chest normal Resp normal respiratory effort and clear to auscultation bilaterally Cardio regular rate and regular rhythm GI non-tender Palpation: soft Extremity Extremity Narrative: No significant lower extremity edema. Good range of motion throughout the lower extremities bilaterally. Patient has very mild erythema and a small focal area over the posterior calcaneus. No wound appreciated. There is very slight ecchymosis versus venous changes along the instep medially. Good sensation on testing with good cap refill throughout. Neuro oriented x3 and no sensory deficits noted Motor Exam: strength 5/5 throughout Psych mental status grossly normal MDM MDM MDM Narrative Medical decision making narrative: Right foot x-ray obtained to evaluate for any underlying bony abnormality. Treatment and Re-Evaluation :: Right foot x-ray per my interpretation reveals no bony abnormality. At this time there is no sign of cellulitis. Jag wrap is applied to the right foot for extra ligamentous support. Patient to follow with her primary care physician. Return instructions given. Discharge Plan Triage Chief Complaint: Lower Extremity Injury ED Provider: Yelena Baez Dx/Rx/DC Orders Clinical Impression: Foot pain, right Instructions: ED Foot Sprain Prescriptions: No Action atorvastatin 40 MG tablet 40 mg PO QHS aspirin 81 MG tablet 81 mg PO DAILY@0800 ascorbic acid (vitamin C) 500 MG tablet 500 mg PO DAILY levothyroxine 50 MCG tablet 50 mcg PO DAILY fluoxetine 20 MG capsule 20 mg PO DAILY melatonin 5 MG capsule 5 mg PO QHS mirabegron 50 MG tablet extended release 24 hr 50 mg PO DAILY vitamin E acetate 200 UNIT capsule 200 unit PO DAILY potassium chloride 20 MEQ tablet extended release 40 meq PO DAILY Primary Care Provider: Kurt Harris Referrals: Kurt Harris MD [[facility]] - 5-7 Days Disposition Disposition: Home, Self Care
[2024-01-31 16:17] VITALS: BP 184/75; PULSE 65; RESP 16; TEMP 36.8; O2SAT 97
== END 2024-01-31 16:21 | disposition home or self-care (01) ==
PROVIDERS: Emergency Provider Emergency Medicine; PCP Family Medicine; Visit Provider Emergency Medicine
DX: M79.671 Pain in right foot (principal); I10 Essential (primary) hypertension; E78.5 Hyperlipidemia, unspecified; E03.9 Hypothyroidism, unspecified; F17.200 Nicotine dependence, unspecified, uncomplicated; Z79.82 Long term (current) use of aspirin; Z79.890 Hormone replacement therapy; Z79.899 Other long term (current) drug therapy
CPT/HCPCS: 73630; 99282

== ENCOUNTER 2024-07-26 14:16 | Emergency (ER) | payer MEDICARE, MEDICAID, SELFPAY ==
[2024-07-26 14:17] VITALS: BP 161/121; PULSE 68; RESP 16; TEMP 36.6; O2SAT 100; BMI 22.2
--- NOTE | 2024-07-26 15:05 | RAD_ITS ---
STUDY: XR Hand Min 3 Views REASON FOR EXAM: Female, 78 years old. dog bite thumb palm TECHNIQUE: XR Hand 3 Views RIGHT COMPARISON: None. FINDINGS: Normal radiocarpal articulation. Normal distal radioulnar joint. Normal visualized carpal bones. Normal carpal articulations There is degenerative arthrosis of the carpometacarpal articulation of the thumb with lateral subluxation of the first metacarpus. Normal second through fifth carpometacarpal joints. Normal metacarpi. Normal metacarpophalangeal joint of the thumb. Normal interphalangeal joint of the thumb. Normal proximal and distal phalanges of the thumb. Normal metacarpophalangeal joints of the second through fifth fingers. There is diffuse articular joint space narrowing of the proximal and distal interphalangeal joints of the second through fifth fingers, but without erosive changes or periarticular soft tissue swelling. Normal phalanges of the second through fifth fingers. The soft tissue structures are unremarkable. RAD/Hand Min 3 Views IMPRESSION: There are no acute findings. Electronically Signed: Devon Lindsey MD at 15:23 EDT ,
--- NOTE | 2024-07-26 15:08 | EDS_ITS ---
HPI History of Present Illness Chief Complaint: Laceration Informant: patient Narrative Narrative: 78-year-old female presenting to the emergency room with a chief complaint of dog bite to the right hand. Patient states that it was her dog who is unvaccinated that bit her. He is blind and she was attempting to feed him. Patient notes a laceration to the dorsum of the left thumb as well as puncture wound on the palm and the skin tear to the right forearm. Unknown last tetanus. [facility] Medical History Depression Hypothyroidism Hyperlipidemia Hypertension Home Medications ?Medication ?Instructions ?Recorded ?Last Taken ?Type ascorbic acid (vitamin C) 500 mg 500 mg PO DAILY supplement 01/12/21 01/11/21 History tablet aspirin 81 mg tablet,delayed 81 mg PO DAILY@0800 health 01/12/21 01/11/21 History release maintenance atorvastatin 40 mg tablet 40 mg PO QHS cholesterol 01/12/21 01/11/21 History fluoxetine 20 mg capsule 20 mg PO DAILY mental health 01/12/21 01/11/21 History levothyroxine 50 mcg tablet 50 mcg PO DAILY thyroid 01/12/21 01/11/21 History melatonin 5 mg capsule 5 mg PO QHS sleep 01/12/21 01/11/21 History mirabegron 50 mg tablet,extended 50 mg PO DAILY Check with primary 01/12/21 01/11/21 History release 24 hr doctor potassium chloride 20 mEq 40 meq PO DAILY supplement 01/12/21 01/11/21 History tablet,extended release vitamin E acetate 134 mg (200 200 unit PO DAILY supplement 01/12/21 01/11/21 History unit) capsule amoxicillin 875 mg-potassium 875 mg PO Q12H #13 TABLETS 07/26/24 Unknown Rx clavulanate 125 mg tablet Allergy/AdvReac Type Severity Reaction Status Date / Time cephalexin (From Keflex) Allergy NEEDS Verified 07/26/24 14:19 FOLLOW-UP citalopram Allergy Angioedema Verified 07/26/24 14:19 sulfamethoxazole (From Allergy NEEDS Verified 07/26/24 14:19 Bactrim) FOLLOW-UP trimethoprim (From Bactrim) Allergy NEEDS Verified 07/26/24 14:19 FOLLOW-UP duloxetine (From Cymbalta) AdvReac Other Verified 07/26/24 14:19 Social History Smoking Status: Light Smoker (<10/day) ROS ROS ED Constitutional Constitutional ED: Denies chills, fever(s) or weight loss Eyes Eyes: Denies change in vision or diplopia ENT ENT ED: Denies ear pain, rhinorrhea or sore throat Cardiovascular Cardiovascular: Denies chest pain, orthopnea, palpitations or racing heartbeat Respiratory/Chest Respiratory/Chest: Denies cough, dyspnea or orthopnea Gastrointestinal Gastrointestinal: Denies abdominal pain, diarrhea, nausea or vomiting Genitourinary Genitourinary ED: Denies dysuria, hematuria or urinary frequency Musculoskeletal Musculoskeletal: Denies arthralgias or myalgias Integumentary Reports other Details: See history of present illness ; Denies abscess or rash Neurologic Neurologic: Denies headache(s) or weakness Psychiatric Psychiatric: Denies anxiety, depression, suicidal ideation or suicidal thoughts Endocrine Endocrinology: Denies polydipsia, polyphagia or polyuria Allergic/Immunologic Allergic/Immunologic ED: Denies mouth swelling, tongue swelling or urticaria EXAM Physical Exam Const Vital Signs: 07/26/24 14:17 Temperature 98 F Temperature Source Oral Pulse Rate 68 Respiratory Rate 16 Blood Pressure 161/121 H Blood Pressure Mean 134 Pulse Ox 100 Oxygen Delivery Method Room Air Positive well nourished and well developed General Appearance ED: well developed and NAD HEENT Reports normocephalic, head/scalp atraumatic and moist mucous membranes Eyes PERRL and EOMs intact bilaterally Neck no lymphadenopathy, supple and no JVD Resp normal respiratory effort and clear to auscultation bilaterally Cardio regular rate, regular rhythm and no murmurs GI normal to inspection, nondistended, normoactive bowel sounds and non-tender Palpation: soft Back/Spine no CVA tenderness and normal ROM Extremity Extremity Narrative: There is about a 2 cm irregular laceration over the dorsum of the right thumb along the interphalangeal joint. There is mild venous bleeding. Distally the thumb is neurovascularly intact with excellent sensation including 2 point and the tissue is pink. There is a small puncture wound over the mid palm of the right hand. There is a superficial skin tear of about 1 cm triangular in nature over the dorsum of the right forearm General Extremety ED: Negative for edema General Extremity: Negative for edema Neuro oriented x3 and CN's II-XII intact bilaterally Sensorium / Orientation: alert Motor Exam: strength 5/5 throughout Psych mental status grossly normal Mood & Affect: Negative for depressed or tearful Skin no rashes or lesions noted and no wounds MDM MDM MDM Narrative Medical decision making narrative: Differential diagnosis includes but not limited to laceration skin avulsion fracture foreign body tendon injury neurovascular injury Patient appears neurovascular intact. Tendon function appears intact. My independent interpretation of the plain films of the right hand are chronic changes associated with arthritis but no obvious foreign body or fracture. I spoke with the patient and because this is over a phalangeal joint and gapes I do think we need to close it. We talked about the risk benefit of closing it. I locally anesthetized the wound using 1% lidocaine. Once adequate anesthesia was achieved wound was washed with Shur-Clens and irrigated. It was closed using a total of 5 simple interrupted 4-0 Ethilon sutures. Wound edges were loosely approximated. Homeostasis achieved. Bacitracin applied to the wound and the wound was dressed. Bacitracin was applied to the other wounds after washing and dressed. Placed on Augmentin and first dose was given here. Tetanus was updated. Patient understands home care and return instructions. History & Record Review Discussion w/independent historian: Patient and Family Discharge Plan Triage Chief Complaint: Laceration ED Provider: Jim Cruz Dx/Rx/DC Orders Clinical Impression: Dog bite of right hand, Laceration of thumb Instructions: ED Dog Bite Prescriptions: New amoxicillin-pot clavulanate 875-125 mg tablet 875 mg PO Q12H Qty: 13 0RF No Action atorvastatin 40 MG tablet 40 mg PO QHS aspirin 81 MG tablet 81 mg PO DAILY@0800 ascorbic acid (vitamin C) 500 MG tablet 500 mg PO DAILY levothyroxine 50 MCG tablet 50 mcg PO DAILY fluoxetine 20 MG capsule 20 mg PO DAILY melatonin 5 MG capsule 5 mg PO QHS mirabegron 50 MG tablet extended release 24 hr 50 mg PO DAILY vitamin E acetate 200 UNIT capsule 200 unit PO DAILY potassium chloride 20 MEQ tablet extended release 40 meq PO DAILY Primary Care Provider: Kurt Harris Referrals: Kurt Harris MD [Primary Care Provider] - 10 Day for suture removal Print Language: Armenian Disposition Disposition: Home, Self Care
[2024-07-26] MEDS: Diphth,Pertuss(Acell),Tet Vac 0.5 ML Vial IM (15:25)
--- OUTSIDE RECORDS SUMMARY | 2024-07-26 15:25 | XMS RPT_ITS | CCD ---
Author Organization [facility] Care Team Providers Care Librarian Special Collections Name Role Phone Shirlene Diaz Primary Care Provider Kurt Saravia MD Primary Care Provider Kurt Saravia MD Primary Care Provider Kurt Saravia MD Primary Care Provider Rex RAYO.CLIENT SERVICES REPRESENTATIVE, Angelina Rasmussen Unavailable Kurt Saravia MD Unavailable Kalpesh Oakley RN Unavailable Kalpesh Oakley RN Unavailable Roman REEDER, Leno Boothe Unavailable Unavailable STEVEN JEFFRIES Attending Unavailable KURT SARAVIA Primary Care Unavailable LARRY GREEN Attending Unavailable KURT SARAVIA Primary Care Unavailable ANAHI LYON Attending Unavailable KRISHNA LEY Admitting Unavailable KURT SARAVIA Primary Care Unavailable Kurt Saravia MD Primary Care Provider Kurt Saravia MD Primary Care Provider Kurt Saravia MD Unavailable KURT SARAVIA Referring Unavailable KURT SARAVIA Primary Care Unavailable KURT SARAVIA Attending Unavailable KURT SARAVIA Primary Care Unavailable SARAY ALEXANDER Attending Unavailable KURT SARAVIA Primary Care Unavailable COLTEN ORO Attending Unavailable SELF Referring Unavailable KURT SARAVIA Primary Care Unavailable MAYANK QUINTANILLA Attending Unavailable SELF Referring Unavailable KURT SARAVIA Primary Care Unavailable KURT SARAVIA Referring Unavailable KURT SARAVIA Primary Care Unavailable KURT SARAVIA Referring Unavailable KURT SARAVIA Primary Care Unavailable KURT SARAVIA Attending Unavailable KURT SARAVIA Primary Care Unavailable KURT SARAVIA Attending Unavailable KURT SARAVIA Primary Care Unavailable ABBY DAVILAVivek Referring Unavailable KURT SARAVIA Primary Care Unavailable AUBRIE DAVILA Attending Unavailable KURT SARAVIA Primary Care Unavailable KURT SARAVIA Referring Unavailable KURT SARAVIA Primary Care Unavailable KURT SARAVIA Attending Unavailable KURT SARAVIA Primary Care Unavailable Allergies Allergy Classification Reported Allergen(s) Allergy Type Date of Onset Reaction(s) Facility Cephalosporins (antibiotic) (2 sources) Cephalexin Drug Allergy 11-22-19 15 Other: See Comments [facility] DULoxetine (2 sources) DULoxetine Drug Allergy 01-05-20 Other: See Comments [facility] Serotonin Reuptake Inhibitors (SSRIs) (2 sources) Citalopram Drug Allergy 01-05-20 Swelling [facility] Sulfamethoxazole / Trimethoprim (2 sources) Sulfamethoxazole / Trimethoprim Drug Allergy 11-22-19 15 Other: See Comments [facility] Work Phone: (20 sources) Cephalexin; Translations: [CEPHALEXIN] Drug Allergy 11-22-19 15 Other: See Comments [facility] (20 sources) Sulfamethoxazole / Trimethoprim; Translations: [SULFAMETHOXAZOLE-TR IMETHOPRIM] Drug Allergy 11-22-19 15 Other: See Comments [facility] (20 sources) Citalopram; Translations: [CITALOPRAM] Drug Allergy 01-05-20 20 Swelling [facility] Work Phone: (20 sources) DULoxetine; Translations: [DULOXETINE] Drug Allergy 01-05-20 Other: See Comments [facility] Work Phone: Medications Current Medications Medication Drug Class(es) Dates Sig (Normalized) Sig (Original) atorvastatin 40 mg oral tablet (20 sources) HMG-CoA Reductase Inhibitor Start: 2 End: 4 take 1 tablet by mouth once daily at bedtime for hyperlipidemia atorvastatin (LIPITOR) 40 mg tablet Take 1 tablet by mouth daily at bedtime. For cholesterol. 90 tablet 1 07/22/2024 Active Comment on above: Take 1 tablet by kely th daily at bedtime. For cholesterol. budesonide 3 mg delayed release oral capsule (4 sources) Corticosteroid Start: 2 End: 2 take 2 capsules by mouth once daily, then take 1 capsule by mouth once daily budesonide, enteric coated (ENTOCORT EC) 3 mg 24 hr capsule Indications: Lymphocytic colitis Take 2 capsules by mouth once daily for 60 days, THEN 1 capsule once daily. 150 capsule 0 06/04/2022 09/02/2022 Active Comment on above: Take 2 capsules by m outh once daily for 60 days, THEN 1 capsule once daily. cholecalciferol 1000 unt oral capsule (1 source) Vitamin D Cholecalciferol (VITAMIN D3) 1000 UNITS CAPS Take by mouth 0 Active diclofenac sodium 75 mg delayed release oral tablet (1 source) Nonsteroidal Anti-inflammatory Drug take 1 tablet by mouth once daily diclofenac (VOLTAREN) 75 MG EC tablet Take 75 mg by mouth daily 0 Active donepezil hydrochloride 5 mg oral tablet (20 sources) Start: 3 End: 5 take 1 tablet by mouth once daily at breakfast donepezil (ARICEPT) 5 mg tablet Take 1 tablet by mouth daily with breakfast. 90 tablet 07/22/2024 10/20/2024 Active Start: 01-24-2023 End: 06-14-2023 take 1 tablet by mouth once daily at bedtime donepezil (ARICEPT) 10 mg tablet Take 1 tablet by mouth daily at bedtime. 30 tablet 5 06/14/2023 Active Start: 11-21-2022 End: 01-24-2023 take 1 tablet by mouth once daily at bedtime donepezil (ARICEPT) 5 mg tablet Take 1 tablet by mouth daily at bedtime. 30 tablet 5 11/21/2022 01/24/2023 Discontinued Comment on above: Take 1 tablet by kely th daily at bedtime. Take 1 tablet by kely th daily with breakfast. DULoxetine 30 mg delayed release oral capsule (1 source) Serotonin and Norepinephrine Reuptake Inhibitor take 1 capsule by mouth once daily DULoxetine (CYMBALTA) 30 MG capsule Take 30 mg by mouth daily 0 Active FLUoxetine 40 mg oral capsule (20 sources) Serotonin Reuptake Inhibitor Start: 022 End: take 1 capsule by mouth once daily FLUoxetine (PROZAC) 40 mg capsule Take 1 capsule by mouth once daily. 30 capsule 5 07/22/2024 Active Comment on above: Take 1 capsule by mo ut once daily. fluticasone propionate 0.05 mg/actuat metered dose nasal spray (1 source) Corticosteroid Start: fluticasone (FLONASE) 50 MCG/ACT nasal spray Indications: Cough 1 spray by Nasal route daily 1 Bottle 3 06/17/2015 Active gabapentin 300 mg oral capsule (20 sources) Anti-epileptic Agent Start: 023 End: take 1 capsule by mouth once daily at bedtime gabapentin (NEURONTIN) 300 mg capsule Take 1 capsule by mouth daily at bedtime for 180 days. 90 capsule 1 07/22/2024 01/18/2025 Active Comment on above: Take 1 capsule by mo ut daily at bedtime for 30 days. Take 1 capsule by mo [facility] daily at bedtime for 90 days. Take 300 mg by mouth daily at bedtime. Take 1 capsule by mo ut daily at bedtime for 180 days. gemfibrozil 600 mg oral tablet (1 source) Peroxisome Proliferator Receptor alpha Agonist take 1 tablet by mouth twice daily before mealtime gemfibrozil (LOPID) 600 MG tablet Take 600 mg by mouth 2 times daily (before meals) 0 Active levothyroxine sodium 0.05 mg oral tablet (20 sources) l-Thyroxine Start: 022 End: take 1 tablet by mouth once daily before breakfast levothyroxine (SYNTHROID) 50 mcg tablet Take 1 tablet by mouth daily before breakfast. Sat-Sat and none on Saturday, Saturday 90 tablet 1 07/22/2024 Active Comment on above: Take 1 tablet by kely th daily before breakfast. Take 1 tablet by kely th daily before breakfast. Mon-Sat and none on Saturday Take 1 tablet by kely th daily before breakfast. Sat-Sat and none on Saturday, Saturday lidocaine 0.05 mg/mg medicated patch (4 sources) Antiarrhythmic, Amide Local Anesthetic Start: 024 apply 1 dose transdermal route every twenty-four hours as needed lidocaine (LIDODERM) 5 % Apply 1 Patch as directed every 24 hours. prn 30 Patch 5 07/22/2024 Active Start: 06-17-2015 apply 1 dose transde rmal route once daily lidocaine (LIDODERM) 5 % Indications: Midline low back pain without sciatica Place 1 patch onto the skin daily 12 hours on, 12 hours off. 30 patch 3 06/17/2015 Active metoprolol tartrate 25 mg oral tablet (1 source) beta-Adrenergic Rosa take 1 tablet by mouth twice daily metoprolol (LOPRESSOR) 25 MG tablet Take 25 mg by mouth 2 times daily 0 Active 24 hr mirabegron 50 mg extended release oral tablet (20 sources) beta3-Adrenergic Agonist Start: 3 End: 4 take 1 tablet by mouth once daily mirabegron (MYRBETRIQ) 50 mg Tb24 Indications: Urgency of urination Take 1 tablet by mouth once daily. 90 tablet 3 11/26/2023 Active Start: 11-09-2022 End: 11-13-2022 take 1 tablet by mouth once daily mirabegron (MYRBETRIQ) 50 mg Tb24 Indications: Urgency of urination TAKE 1 TABLET BY MOUTH DAILY 30 tablet 0 11/09/2022 11/13/2022 Discontinued Start: 10-16-2021 End: 11-09-2022 take 1 tablet by mouth once daily mirabegron (MYRBETRIQ) 50 mg Tb24 Indications: Urgency of urination Take 1 tablet by mouth once daily. 90 tablet 3 10/16/2021 11/09/2022 Discontinued Comment on above: Take 1 tablet by kely th once daily. TAKE 1 TABLET BY KELY TH DAILY omeprazole 40 mg delayed release oral capsule (20 sources) Proton Pump Inhibitor Start: 3 End: 4 take 1 capsule by mouth twice daily before breakfast omeprazole (PRILOSEC) 40 mg capsule Take 1 capsule by mouth two times a day. Take 30-60 minutes before breakfast and dinner on an empty stomach. 180 capsule 3 09/10/2023 09/09/2024 Active Start: 06-20-2022 End: 04-08-2023 take 1 capsule by mouth once daily omeprazole (PRILOSEC) 40 mg capsule Take 1 capsule by mouth once daily. 90 capsule 3 09/20/2022 04/08/2023 Discontinued Comment on above: Take 1 capsule by mo [facility] once daily. Take 1 capsule by mo uth twice daily. Take 30-60 minutes before breakfast and dinner on an empty stomach. Take 1 capsule by mo uth two times a day. Take 30-60 minutes before breakfast and dinner on an empty stomach. potassium chloride 10 meq extended release oral capsule (20 sources) Start: 03-06-2023 End: 07-22-2024 potassium chloride SR (MICRO-K) 10 mEq CR capsule Take 2 capsules by mouth once daily. 60 capsule 5 07/22/2024 Active Start: 03-06-2023 End: 03-06-2023 potassium chloride SR (MICRO -K) 10 mEq CR capsule Take 2 capsules by mouth twice daily. 60 capsule 5 03/06/2023 03/06/2023 Discontinued Start: 03-03-2023 End: 04-02-2023 take 2 tablets by mouth once daily potassium chloride (K-TAB) 10 mEq tablet Take 2 tablets by mouth once daily. 60 tablet 0 03/03/2023 03/06/2023 Discontinued Start: 12-04-2022 End: 12-27-2022 take 1 tablet by mouth twice daily potassium chloride 20 mEq TbER Take 1 tablet by mouth twice daily. 14 tablet 12/04/2022 12/27/2022 Discontinued Start: 06-20-2022 End: 03-03-2023 take 15 mL by mouth twice daily potassium chloride 20 mEq/15 mL solution Take 15 mL by mouth twice daily. 900 mL 11 06/20/2022 03/03/2023 Discontinued Start: 02-07-2022 End: 06-20-2022 take 1 tablet by mouth twice daily potassium chloride 20 mEq TbER Take 1 tablet by mouth twice daily. 60 tablet 1 05/07/2022 06/20/2022 Discontinued (Changing Therapy/Dosage Form) Comment on above: Take 1 tablet by kely twice daily. Take 15 mL by mouth twice daily. Take 2 tablets by mo ut once daily. Take 2 capsules by m outh once daily. Take 2 capsules by m outh twice daily. QUEtiapine 25 mg oral tablet (20 sources) Atypical Antipsychotic Start: 3 End: 4 take 0.5 tablet by mouth at bedtime QUEtiapine (SEROQUEL) 25 mg tablet Indications: Cognitive impairment , Dementia without behavioral disturbance (HCC) take 1/2 tablet by mouth at bedtime 90 tablet 1 01/24/2024 Active Start: 04-16-2023 End: 05-16-2023 take 0.5 tablet by mouth once daily at bedtime QUEtiapine (SEROQUEL) 25 mg tablet Indications: Cognitive impairment , Dementia without behavioral disturbance (HCC) Take 0.5 tablets by mouth daily at bedtime. 15 tablet 2 04/16/2023 Active Comment on above: Take 0.5 tablets by mouth daily at bedtime. take 1/2 tablet by m outh at bedtime thyroid (retirement) 30 mg oral tablet (1 source) take 2 tablets by mouth once daily thyroid (ARMOUR THYROID) 30 MG tablet Take 60 mg by mouth daily 0 Active vitamin b12 0.5 mg oral tablet (20 sources) Vitamin B12 Start: 11-22-2022 End: 01-18-2025 take 1 tablet by mouth once daily cyanocobalamin (VITAMIN B-12) 500 mcg tablet Take 1 tablet by mouth once daily. 90 tablet 1 07/22/2024 01/18/2025 Active Comment on above: Take 1 tablet by kely once daily. WALKER ROLLATOR SEAT WITH 6 WHEELS - RED (20 sources) Start: 07-18-2023 WALKER ROLLATOR SEAT WITH 6 WHEELS - RED Any color is fine and with a basket if available. Dx: Z91.81, M54.40, R20.8, M46.062 and R26.81 1 Each 07/18/2023 Active Start: 07-18-2023 WALKER ROLLATO R SEAT WITH 6 WHEELS - RED Any color is fine and with a basket if available. Dx: Z91.81, M54.40, R20.8, M46.062 and R26.81 1 Each 0 07/18/2023 Active Start: 04-12-2023 End: 07-18-2023 WALKER ROLLATOR SEAT WITH 6 WHEELS - RED Dx: R26.81, Z91.81 1 Each 0 04/12/2023 07/18/2023 Discontinued Start: 04-12-2023 WALKER ROLLATO R SEAT WITH 6 WHEELS - RED Dx: R26.81, Z91.81 1 Each 0 04/12/2023 Active Comment on above: Dx: R26.81, Z91.81 Any color is fine an d with a basket if available. Dx: Z91.81, M54.40, R20.8, M46.062 and R26.81 Completed/Discontinued Medications Medication Drug Class(es) Dates Sig (Normalized) Sig (Original) Amino Acids (20 sources) Start: 03-07-2023 End: 04-21-2024 take 3 g by mouth once daily amino acids (AMINO ACID ORAL) Take 3 g by mouth once daily. Peptide powder 03/07/2023 04/21/2024 Discontinued (Discontinued by Patient) Start: 03-07-2023 End: 04-21-2024 take 3 g by mouth once daily amino acids (AMINO ACID O RAL) Take 3 g by mouth once daily. Peptide powder 0 03/07/2023 04/21/2024 Discontinued (Discontinued by Patient) Start: 03-07-2023 take 3 g by mouth once daily a kalpana acids (AMINO ACID ORAL) Take 3 g by mouth once daily. Peptide powder 0 03/07/2023 Active Start: 03-07-2023 amino acids (A KALPANA ACID ORAL) [The details of the medication are not available because there are pending changes by a home health clinician.] 0 03/07/2023 Active amino acids (AMI NO ACID ORAL) Take by mouth once daily. Peptide powder 0 Active amino acids (AMI NO ACID ORAL) Take by mouth. Peptide powder 0 Active Comment on above: Take by mouth. Pepti de powder Take by mouth once d aily. Peptide powder [The details of the medication are not available because there are pending changes by a home health clinician.] Take 3 g by mouth on ce daily. Peptide powder ascorbic acid 90 mg oral capsule (20 sources) Vitamin C Start: 03-07-2023 End: 04-21-2024 take 90 mg by mouth once daily ascorbic acid (VITAMIN C ORAL) Take 90 mg by mouth once daily. 03/07/2023 04/21/2024 Discontinued (Discontinued by Patient) Start: 03-07-2023 ascorbic acid (VITAMIN C ORAL) [The details of the medication are not available because there are pending changes by a home health clinician.] 0 03/07/2023 Active ascorbic acid (V ITAMIN C ORAL) Take by mouth once daily. 0 Active ascorbic acid (V ITAMIN C ORAL) Take by mouth. 0 Active Comment on above: Take by mouth. Take by mouth once d aily. [The details of the medication are not available because there are pending changes by a home health clinician.] Take 90 mg by mouth once daily. aspirin 81 mg delayed release oral tablet (20 sources) Platelet Aggregation Inhibitor, Nonsteroidal Anti-inflammatory Drug Start: 2015 End: 2023 take 1 tablet by mouth once daily aspirin, enteric coated (ADULT LOW DOSE ASPIRIN) 81 mg EC tablet Take 1 tablet by mouth once daily. 0 12/20/2015 04/21/2024 Discontinued (Discontinued by Patient) Comment on above: Take 1 tablet by kely th once daily. calcium chloride 0.0014 meq/ml / potassium chloride 0.004 meq/ml / sodium chloride 0.103 meq/ml / sodium lactate 0.028 meq/ml injectable solution (1 source) Start: 2022 End: 2022 take 30 mL intravenously every hour 30 mL/hr, INTRAVENOUS, CONTINUOUS, Starting on Sat12/11/22 at 1100, Until Sat12/11/22 at 1223, Preprocedure cyclobenzaprine hydrochloride 10 mg oral tablet (20 sources) Muscle Relaxant Start: 2020 End: 2023 take 1 tablet by mouth every eight hours as needed cyclobenzaprine (FLEXERIL) 10 mg tablet Take 1 tablet by mouth every 8 hours as needed for muscle spasm (or pain). 30 tablet 09/20/2022 06/15/2024 Discontinued (Course of therapy completed) Comment on above: Take 1 tablet by kely th every 8 hours as needed for muscle spasm (or pain). diphenhydrAMINE 12.5 mg/5 mL lidocaine visc 2% MAALOX 200-200-20 mg/5 mL oral liquid 1:1:1 (CPD) (9 sources) Start: 2022 End: 2022 take 10 mL by mouth every six hours as needed diphenhydrAMINE 12.5 mg/5 mL lidocaine visc 2% MAALOX 200-200-20 mg/5 mL oral liquid 1:1:1 (CPD) Take 10 mL by mouth every 6 hours as needed for Sore Throat. Swish and swallow 280 mL 0 12/11/2022 03/03/2023 Discontinued Start: 12-11-2022 take 10 mL by mouth every six hours as needed diphenhydrAMINE 12.5 mg/5 mL lidocaine visc 2% MAALOX 200-200-20 mg/5 mL oral liquid 1:1:1 (CPD) Take 10 mL by mouth every 6 hours as needed for Sore Throat. Swish and swallow 280 mL 0 12/11/2022 Active Comment on above: Take 10 mL by mouth every 6 hours as needed for Sore Throat. Swish and swallow iv contrast (will be provided with radiology test) (2 sources) Start: 12-04-19 End: 12-06-19 inject 1 dose intravenously once iv contrast (will be provided with radiology test) Indications: Dizziness CTA Head/Neck W No IV access, insert saline lock prior to the sedation, infusion, injection for imaging exam. Discontinue saline lock post exam. If Pt. has a central line or IVAD, may access for administration according to line specific nursing protocol. Once exam is complete flush line and de-access according to line specific nursing protocol in the CT contrast administration guidelines link. 1 Each 0 12/04/2022 12/05/2022 Start: 12-04-2022 End: 12-05-2022 inject 1 dose intravenously once iv contrast (will be provided with radiology test) Indications: Dizziness CTA Head/Neck W No IV access, insert saline lock prior to the sedation, infusion, injection for imaging exam. Discontinue saline lock post exam. If Pt. has a central line or IVAD, may access for administration according to line specific nursing protocol. Once exam is complete flush line and de-access according to line specific nursing protocol in the CT contrast administration guidelines link. 1 Each 0 12/04/2022 12/05/2022 Active Comment on above: CTA Head/Neck W No I V access, insert saline lock prior to the sedation, infusion, injection for imaging exam. Discontinue saline lock post exam. If Pt. has a central line or IVAD, may access for administration according to line specific nursing protocol. Once exam is complete flush line and de-access according to line specific nursing protocol in the CT contrast administration guidelines link. melatonin 5 mg oral capsule (20 sources) Start: 12-27-19 End: 11-17-20 23 take 1 capsule by mouth once daily at bedtime Melatonin 5 mg cap Take 1 capsule by mouth daily at bedtime. 12/26/2017 08/23/2023 Discontinued Comment on above: Take 1 capsule by mo [facility] daily at bedtime. meloxicam 7.5 mg oral tablet (1 source) Nonsteroidal Anti-inflammatory Drug Start: 05-11-20 End: 05-11-20 meloxicam (MOBIC) tablet 7.5 mg menthol-cetylpyridin ium 1 Lozenge (CEPACOL LOZENGES) (1 source) Start: 12-12-19 End: 07-01-20 1 Lozenge, ORAL, NEEDED, Starting on Sat12/11/22 at 1309, Until Sat07/01/24 at 0218, Sore Throat potassium bicarbonate 20 meq effervescent oral tablet (3 sources) Start: 01-09-20 End: 02-08-20 take 1 tablet by mouth twice daily Potassium Bicarb-Citric Acid (EFFER-K) 20 mEq tbef Take 1 tablet by mouth twice daily. 60 tablet 5 01/08/2022 02/07/2022 Discontinued (Changing Therapy/Dosage Form) Start: 10-10-2021 End: 01-08-2022 take 1 tablet by mouth twice daily Potassium Bicarb-Citric Acid (EFFER-K) 25 mEq disintegrating tablet Take 1 tablet by mouth twice daily. 60 tablet 3 10/10/2021 01/08/2022 Discontinued (Not on Formulary) Comment on above: Take 1 tablet by [facility] twice daily. VITAMIN E ACETATE ORAL (20 sources) Start: 03-07-2023 End: 06-15-2024 take 10 mg by mouth once daily VITAMIN E ACETATE ORAL Take 10 mg by mouth once daily. 03/07/2023 06/15/2024 Discontinued Start: 03-07-2023 take 10 mg by mouth once daily VITAMIN E ACETATE ORAL Take 10 mg by mouth once daily. 03/07/2023 Active Start: 03-07-2023 take 10 mg by mouth once daily VITAMIN E ACETATE ORAL Take 10 mg by mouth once daily. 0 03/07/2023 Active Start: 03-07-2023 VITAMIN E ACET ATE ORAL [The details of the medication are not available because there are pending changes by a home health clinician.] 0 03/07/2023 Active VITAMIN E ACETAT E ORAL Take by mouth. 0 Active Comment on above: Take by mouth. [The details of the medication are not available because there are pending changes by a home health clinician.] Take 10 mg by mouth once daily. wheat dextrin 5000 mg powder for oral solution (20 sources) Start: 09-10-2022 End: 06-15-2024 wheat dextrin (BENEFIBER HEALTHY SHAPE) 5 gram/7.4 gram powd Take 2 teaspoonsful by mouth once daily. 09/10/2022 06/15/2024 Discontinued Comment on above: Take 2 teaspoonsful by mouth once daily. Problems Active Problems Problem Classification Problem Date Documented Da te Episodic/Chronic Anxiety disorders (1 source) Acute stress disorder; Translations: [Other acute reactions to stress] Onset: 06-16-2015 06-16-2015 Chronic Aortic; peripheral; and visceral artery aneurysms (1 source) Aneurysm of subclavian artery; Translations: [Aneurysm of other specified arteries] Chronic Chronic kidney disease (20 sources) Chronic kidney disease stage 3A ; Translations: [Stage 3a chronic kidney disease (HCC)] Onset: 09-20-2022 Chronic Chronic kidney disease (1 source) Chronic kidney disease; Translations: [Stage 3a chronic kidney disease (HCC)] Onset: 03-02-2023 Delirium, dementia, and amnestic and other cognitive disorders (20 sources) Dementia; Translations: [Unspecified dementia without behavioral disturbance] Onset: 12-20-2022 Chronic Diabetes mellitus with complications (20 sources) Type 2 diabetes mellitus; Translations: [Type 2 diabetes mellitus with diabetic chronic kidney disease] Onset: 09-20-2022 Chronic Diabetes mellitus without complication (11 sources) Type 2 diabetes mellitus without complication; Translations: [Type 2 diabetes mellitus without complications] Onset: 12-07-2015 01-12-2020 Chronic Diabetes mellitus without complication (1 source) Diabetes mellitus without complication; Translations: [Type 2 diabetes mellitus with stage 3a chronic kidney disease, without long-term current use of insulin ([facility])] Onset: 03-02-2023 Disorders of lipid metabolism (20 sources) Pure hypercholesterolemi a; Translations: [Mixed hyperlipidemia] Onset: 06-16-2015 06-16-2015 Chronic Esophageal disorders (20 sources) Stricture of esophagus; Translations: [Esophageal obstruction] Onset: 09-25-2023 04-21-2023 Chronic Essential hypertension (20 sources) Benign essential hypertension; Translations: [Essential hypertension] Onset: 06-16-2015 06-16-2015 Chronic Gastritis and duodenitis (1 source) Gastritis; Translations: [Gastritis, unspecified, without bleeding] Episodic Heart valve disorders (20 sources) Nonrheumatic aortic (valve) insufficiency; Translations: [Aortic valve disorders] Onset: 01-19-2020 12-21-2020 Chronic Immunizations and screening for infectious disease (1 source) Encounter for immunization; Translations: [Encounter for immunization] Onset: 07-22-2024 Episodic Miscellaneous mental health disorders (20 sources) Primary insomnia; Translations: [Primary insomnia] Onset: 09-25-2023 09-25-2023 Chronic Mood disorders (20 sources) Recurrent major depression in remission; Translations: [Major depressive disorder, recurrent, in remission, unspecified] Onset: 07-01-2018 07-01-2018 Chronic Nausea and vomiting (3 sources) Nausea; Translations: [Nausea] Onset: 11-30-2022 Episodic Noninfectious gastroenteritis (20 sources) Colitis; Translations: [Lymphocytic colitis] Onset: 05-16-2020 02-14-2021 Chronic Occlusion or stenosis of precerebral arteries (20 sources) Bilateral stenosis of carotid arteries; Translations: [Occlusion and stenosis of bilateral carotid arteries] Onset: 12-20-2015 09-21-2020 Chronic Osteoporosis (20 sources) Osteoporosis; Translations: [Age-related osteoporosis without current pathological fracture] Onset: 05-26-2015 07-07-2015 Chronic Other circulatory disease (1 source) Low blood pressure; Translations: [Hypotension, unspecified] 03-10-2024 Episodic Other connective tissue disease (1 source) History of osteoporosis; Translations: [History of osteoporosis] Episodic Other diseases of bladder and urethra (2 sources) Overactive bladder; Translations: [Overactive bladder] Chronic Other diseases of kidney and ureters (1 source) Renal impairment; Translations: [Disorder of kidney and ureter, unspecified] Episodic Other gastrointestinal disorders (1 source) Oral phase dysphagia; Translations: [Dysphagia, oral phase] Episodic Other gastrointestinal disorders (1 source) Esophageal dysphagia; Translations: [Other dysphagia] Episodic Other gastrointestinal disorders (3 sources) Dysphagia; Translations: [Dysphagia, unspecified] Episodic Other hereditary and degenerative nervous system conditions (20 sources) Essential tremor; Translations: [Essential tremor] Onset: 09-18-2021 09-18-2021 Chronic Other hereditary and degenerative nervous system conditions (1 source) Impaired cognition; Translations: [Mild cognitive impairment, so stated] 12-19-2022 Chronic Other nervous system disorders (5 sources) Impaired cognition; Translations: [Other symptoms and signs involving cognitive functions and awareness] Episodic Other non-traumatic joint disorders (1 source) Pain in wrist; Translations: [Wrist pain, acute, right] Episodic Other non-traumatic joint disorders (1 source) Pain in left hip; Translations: [Left hip pain] Onset: 07-22-2024 Episodic Other non-traumatic joint disorders (2 sources) Hip pain; Translations: [Pain in left hip] 07-22-2024 Episodic Other nutritional; endocrine; and metabolic disorders (1 source) Hypomagnesemia; Translations: [Hypomagnesemia] Chronic Other nutritional; endocrine; and metabolic disorders (1 source) Hypomagnesemia; Translations: [Hypomagnesemia] Onset: 11-30-2022 Chronic Other nutritional; endocrine; and metabolic disorders (12 sources) Decrease in appetite; Translations: [Anorexia] Onset: 02-02-2020 02-02-2020 Episodic Other nutritional; endocrine; and metabolic disorders (3 sources) Weight loss; Translations: [Abnormal weight loss] Episodic Other screening for suspected conditions (not mental disorders or infectious disease) (1 source) Other specified abnormal findings of blood chemistry; Translations: [Other abnormal blood chemistry] Episodic Residual codes; unclassified (20 sources) Restlessness and agitation; Translations: [Restlessness and agitation] Onset: 02-02-2020 07-07-2020 Chronic Residual codes; unclassified (20 sources) Memory impairment; Translations: [Other amnesia] Onset: 11-21-2022 11-21-2022 Episodic Residual codes; unclassified (1 source) 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; Translations: [Other specified health status] 11-26-2023 Episodic Spondylosis; intervertebral disc disorders; other back problems (20 sources) Spinal stenosis of lumbar region; Translations: [Spinal stenosis, lumbar region with neurogenic claudication] Onset: 01-23-2016 06-28-2016 Episodic Substance-related disorders (20 sources) Tobacco dependence syndrome; Translations: [Smoker] Onset: 05-26-2015 06-17-2015 Chronic Superficial injury; contusion (1 source) Contusion of unspecified front wall of thorax, initial encounter; Translations: [Contusion of chest wall, unspecified laterality, initial encounter] Onset: 11-09-2023 Episodic Thyroid disorders (20 sources) Hypothyroidism; Translations: [Acquired hypothyroidism] Onset: 06-16-2015 07-07-2015 Chronic Unclassified (20 sources) Active living will ; Translations: [Living will on file] Onset: 03-21-2022 03-21-2022 Unclassified (1 source) Acute bilateral low back pain without sciatica; Translations: [Acute bilateral low back pain without sciatica] Onset: 07-22-2024 Past or Other Problems Problem Classification Problem Date Documented Date Episodic/Chronic Abdominal pain (3 sources) Epigastric pain; Translations: [Epigastric pain] Onset: 11-30-2022 Episodic Administrative/social admission (20 sources) Advance directive discussed with patient; Translations: [Other specified counseling] Onset: 03-21-2022 Episodic Cardiac dysrhythmias (20 sources) Sinus bradycardia; Translations: [Bradycardia, unspecified] Onset: 12-21-2020 12-21-2020 Episodic Conditions associated with dizziness or vertigo (7 sources) Dizziness; Translations: [Dizziness and giddiness] Onset: 11-30-2022 Episodic Deficiency and other anemia (1 source) Anemia, unspecified; Translations: [Anemia, unspecified type] Onset: 08-06-2023 Episodic Diabetes mellitus without complication (20 sources) Hyperglycemia; Translations: [Impaired fasting glucose] Onset: 12-07-2015 Resolved: 09-18-2019 09-18-2019 Episodic Fluid and electrolyte disorders (20 sources) Hypokalemia; Translations: [Hypokalemia] Onset: 03-02-2023 Episodic Genitourinary symptoms and ill-defined conditions (20 sources) Urgent desire to urinate; Translations: [Urgency of urination] Onset: 12-14-2015 Resolved: 09-18-2019 06-28-2016 Episodic Nonspecific chest pain (3 sources) Anterior chest wall pain; Translations: [Other chest pain] Onset: 03-10-2024 11-26-2023 Episodic Nutritional deficiencies (20 sources) Protein deficiency disease; Translations: [Unspecified protein-calorie malnutrition] Onset: 01-24-2021 Resolved: 09-20-2022 01-24-2021 Chronic Other aftercare (20 sources) Patient encounter status; Translations: [Other usp (current) drug therapy] Onset: 12-07-2015 Resolved: 09-18-2019 07-07-2020 Episodic Other aftercare (1 source) Other usp (current) drug therapy; Translations: [Medication management] Onset: 07-07-2020 Episodic Other circulatory disease (20 sources) Disorder of carotid artery; Translations: [Disorder of arteries and arterioles, unspecified] Onset: 12-20-2015 Resolved: 09-18-2019 09-18-2019 Chronic Other circulatory disease (1 source) Hypotension, unspecified; Translations: [Hypotension, unspecified hypotension type] Onset: 03-10-2024 Episodic Other connective tissue disease (20 sources) Pain of bilateral hands; Translations: [Pain in right hand] Onset: 12-26-2016 Resolved: 09-18-2019 09-18-2019 Episodic Other connective tissue disease (16 sources) Recurrent falls ; Translations: [Repeated falls] Onset: 04-08-2024 04-08-2024 Episodic Other injuries and conditions due to external causes (20 sources) At risk for falls ; Translations: [History of falling] Onset: 04-12-2023 04-12-2023 Episodic Other nervous system disorders (20 sources) Finding of sensation of lower limb; Translations: [Other disturbances of skin sensation] Onset: 01-04-2016 12-31-2018 Episodic Other nervous system disorders (20 sources) Abnormal gait; Translations: [Unsteadiness on feet] Onset: 03-06-2023 Episodic Other nervous system disorders (16 sources) Impairment of balance; Translations: [Other abnormalities of gait and mobility] Onset: 04-08-2024 04-08-2024 Episodic Other non-traumatic joint disorders (20 sources) Multiple joint pain; Translations: [Pain in unspecified joint] Onset: 12-07-2015 10-02-2021 Episodic Other nutritional; endocrine; and metabolic disorders (10 sources) Abnormal weight loss; Translations: [Abnormal weight loss] Onset: 05-16-2020 05-16-2020 Episodic Other nutritional; endocrine; and metabolic disorders (20 sources) Adult failure to thrive syndrome; Translations: [Adult failure to thrive] Onset: 03-02-2023 03-02-2023 Episodic Other nutritional; endocrine; and metabolic disorders (1 source) Anorexia; Translations: [Anorexia] Onset: 11-30-2022 Episodic Residual codes; unclassified (7 sources) Active living will ; Translations: [Personal history of other specified conditions] Onset: 03-21-2022 Episodic Screening and history of mental health and substance abuse codes (20 sources) Ex-smoker; Translations: [Personal history of nicotine dependence] Onset: 2015 12-31-2018 Episodic Results Test Name Value Interpretation Reference Range Facility [facility] 07-22-2024 CNOV Office Visit (FAMPWS ) EDISON ALBARRAN ([id number]) 1945 [facility] Date Time Provider Department 07/22/24 1:20 PM KURT SARAVIA During your visit today, we recorded the following information about you: Pulse Respiration Blood pressure Weight 72/minute 16/minute 124/84 49 kg Kurt Saravia MD 07/22/2024 2:30 PM Signed Chief Complaint Patient presents with: Pain, Back HPI Edison Albarran is a 78 year old female who presents here today for hip pain. Dizziness has been ongoing for a while; feels like she is spinning; has never had an PHYSICAL THERAPY for this. Left hip pain; lower back pain. Has been going on for a few weeks. Started after lifting a bag of dog food. On occasion has radiation into her butt on the left. At times she has had some tingling in her left leg. Leg will give out a times. Denies and saddle anesthesia. No difficulty starting urination and no fecal incontinence. Patient was to have a medicare wellness in May; but no showed for her appointment. Needs rescheduled. Patient sees Neurology for Dementia last visit 03/2024 Patient does have [facility] assisting patient at home. Past medical history, appointments, medications, allergies reviewed. Previous Medical History PAST MEDICAL HISTORY Diagnosis Date Advance directive discussed with patient 03/21/202203/2022 Agitation 02/02/2020 Aneurysm of right subclavian artery (HCC) At risk for falling 04/12/2023 Bilateral carotid artery disease (HCC) 12/20/2015 US 12/2015: 20-40% on Rt and 40-60% on left. US 01/2017 unchanged. Chronic bilateral low back pain with sciatica 12/26/2016 Constipation 07/09/2018 after starting lipitor Decreased sensation of lower extremity 01/04/2016 Dementia without behavioral disturbance (HCC) 12/20/2022 Diabetic eye exam ([facility]) 09/24/2022 Last done 08/08/22 Essential hypertension 2015 Essential tremor 09/18/2021 Ex-smoker 2015 1/2-1 PPD since early 50s, quit January 2018 Failure to thrive in adult 03/02/2023 Gastroesophageal reflux disease without esophagitis 09/25/2023 Hematuria 12/14/2015 Urology w/u neg. Hypothyroidism (acquired) 2015 Living will on file 03/21/2022 DPA; Casey (son) Lymphocytic colitis 05/16/2020 Possibly Zoloft related. Mediastinal lymphadenopathy 08/04/2018 Prominent Mediastinal lymphadenopathy noted on CT 08/01/18. CT 01/05/2019 no mediastinal lymphadenopathy Mixed hyperlipidemia 2015 Moderate aortic insufficiency 01/19/[address] Cordoba Osteoporosis 05/26/2015 Overactive bladder Pain in both hands 12/26/2016 Pain in joint, multiple sites 12/07/2015 On neurontin Primary insomnia 09/25/2023 Seeing Neuro Recurrent major depressive disorder, in remission ([facility]) 07/01/2018 Spinal stenosis, lumbar region, with neurogenic claudication 01/23/2016 Stage 3a chronic kidney disease ([facility]) 09/20/2022 Type 2 diabetes mellitus with stage 3a chronic kidney disease ([facility]) 09/20/2022 Type 2 diabetes mellitus without complication, without long-term current use of insulin ([facility]) 12/07/2015 Unsteady gait 03/06/2023 Urgency of urination 06/13/2016 Previous Surgical History PAST SURGICAL HISTORY Procedure Laterality Date 2D ECHO (EXEP) 09/2020 EF=64%, Mild Noe dysf and La enlargment, 2+ AR CARPAL TUNNEL RIGHT WRIST COLONOSCOPY 2011 repeat 10 yrs COLONOSCOPY FLX DX W/COLLJ SPEC WHEN PFRMD 04/21/2020 Colonoscopy CORRECTION OF BUNION Left ESOPHAGOGASTRODUODENOSCOPY TRANSORAL DIAGNOSTIC 04/21/2020 EGD FECAL OCCULT BLOOD TEST 01/01/2018 negative HYSTERECTOMY HX 1970 one ovary removed LEXISCAN STRESS TEST 11/21/2020 negative PAST SURGICAL HISTORY OF 1971 appendectomy PAST SURGICAL HISTORY OF 1987 breast lump, benign STRESS TEST 07/09/2016 WNL TUMOR REMOVAL (SPECIFY LOCATION) HX 2002 stomach Family History FAMILY HISTORY Problem Relation Age of Onset Breast Cancer Mother over 50 Hypertension Mother Lipids Mother Osteoporosis Mother Thyroid Mother Cancer Father stomach Cancer Brother lung Alzheimer's Disease Brother dementia Diabetes Brother Patient Allergies ALLERGIES Allergen Reactions Bactrim [Sulfametho* Other: See Comments Unknown. Cephalexin Other: See Comments Unknown. Citalopram Swelling Throat swelled Cymbalta [Duloxetin* Other: See Comments Made her feel groggy. Current Medications Current Outpatient Medications on File Prior to Visit Medication Sig levothyroxine (SYNTHROID) 50 mcg tablet Take 1 tablet by mouth daily before breakfast. Sat-Sat and none on Saturday, Saturday atorvastatin (LIPITOR) 40 mg tablet Take 1 tablet by mouth daily at bedtime. For cholesterol. FLUoxetine (PROZAC) 40 mg capsule Take 1 capsule by mouth once daily. potassium chloride SR (MICRO-K) 10 mEq CR capsule Take 2 capsules by mouth once daily. (more content not included)... Normal [facility] 07-22-2024 [facility] Telephone (FAMNelyWS) EDISON ALBARRAN ([id number]) 1945 [facility] Date Time Provider Department 07/22/24 BRENDA SANABRIA During your visit today, we recorded the following information about you: Brenda Sanabria MA 07/22/2024 2:42 PM Signed Faxed order/demo to [facility]. Referral sent to teri/jillian Sanabria MA Allergies As of Date: 07/22/2024 Noted Allergy Reaction BACTRIM (SULFAMETHOXAZOLE-TRIMETH* 14 - Other: See Comments Comments: Unknown. CEPHALEXIN 11/22/2014 14 - Other: See Comments Comments: Unknown. CITALOPRAM 01/05/2020 7 - Swelling Comments: Throat swelled CYMBALTA (DULOXETINE) 01/05/2020 14 - Other: See Comments Comments: Made her feel groggy. Date Reviewed: 07/22/2024 Reviewed by: Kurt Saravia MD - Fully Assessed Reason for Visit: Appointment [186] Cmt: [facility] Prescriptions as of 07/22/2024 - atorvastatin (LIPITOR) 40 mg tablet Take 1 tablet by mouth daily at bedtime. For cholesterol. - cyanocobalamin (VITAMIN B-12) 500 mcg tablet Take 1 tablet by mouth once daily. - donepezil (ARICEPT) 5 mg tablet Take 1 tablet by mouth daily with breakfast. - FLUoxetine (PROZAC) 40 mg capsule Take 1 capsule by mouth once daily. - gabapentin (NEURONTIN) 300 mg capsule Take 1 capsule by mouth daily at bedtime for 180 days. - levothyroxine (SYNTHROID) 50 mcg tablet Take 1 tablet by mouth daily before breakfast. Mon-Sat and none on Saturday, Saturday - potassium chloride SR (MICRO-K) 10 mEq CR capsule Take 2 capsules by mouth once daily. - lidocaine (LIDODERM) 5 % Apply 1 Patch as directed every 24 hours. prn - QUEtiapine (SEROQUEL) 25 mg tablet take 1/2 tablet by mouth at bedtime - mirabegron (MYRBETRIQ) 50 mg Tb24 Take 1 tablet by mouth once daily. - omeprazole (PRILOSEC) 40 mg capsule Take 1 capsule by mouth two times a day. Take 30-60 minutes before breakfast and dinner on an empty stomach. - WALKER ROLLATOR SEAT WITH 6 WHEELS - RED Any color is fine and with a basket if available. Dx: Z91.81, M54.40, R20.8, M46.062 and R26.81 Problem List As Of Date 07/22/2024 Noted Resolved Osteoporosis [M81.0] 05/26/2015 Essential hypertension [I10] 2015 Mixed hyperlipidemia [E78.2] 2015 Hypothyroidism (acquired) [E03.9] 2015 Smoker [F17.200] 2015 Pain in joint, multiple sites [M25.50] 12/07/2015 Colon cancer screening [Z12.11] 12/07/2015 09/18/2019 Elevated fasting blood sugar [R73.01] 12/07/2015 09/18/2019 Hematuria [R31.9] 12/14/2015 09/18/2019 Bilateral carotid artery disease (HCC) [I77.9] 12/20/2015 09/18/2019 Decreased sensation of lower extremity [R20.8] 01/04/2016 Spinal stenosis, lumbar region, with neurogenic*01/23/2016 Urgency of urination [R39.15] 06/13/2016 Well adult exam [Z00.00] 12/26/2016 09/18/2019 Chronic bilateral low back pain with sciatica [*12/26/2016 Pain in both hands [M79.641, M79.642] 12/26/2016 09/18/2019 Encounter for screening mammogram for breast ca*12/26/2017 09/18/2019 Medicare annual wellness visit, subsequent [Z00*12/26/2017 Recurrent major depressive disorder, in remissi*07/01/2018 Medication management [Z79.899] 12/31/2018 Bilateral carotid artery stenosis [I65.23] 12/20/2015 Hematuria [R31.9] 12/14/2015 Moderate aortic insufficiency [I35.1] 01/19/2020 Agitation [R45.1] 02/02/2020 Lymphocytic colitis [K52.832] 05/16/2020 Sinus bradycardia [R00.1] 12/21/2020 Protein deficiency (HCC) [E46] 01/24/2021 09/20/2022 Essential tremor [G25.0] 09/18/2021 Living will on file [[id number]] 03/21/2022 Advance directive discussed with patient [Z71.8*03/21/2022 Stage 3a chronic kidney disease (HCC) [N18.31] 09/20/2022 Type 2 diabetes mellitus with stage 3a chronic *09/20/2022 Diabetic eye exam (HCC) [Z01.00, E11.9] 09/24/2022 Dementia without behavioral disturbance (HCC) [*12/20/2022 Hypokalemia [E87.6] 03/02/2023 Failure to thrive in adult [R62.7] 03/02/2023 Unsteady gait [R26.81] 03/06/2023 At risk for falling [Z91.81] 04/12/2023 Gastroesophageal reflux disease without esophag*09/25/2023 Primary insomnia [F51.01] 09/25/2023 Balance problem [R26.89] 04/08/2024 Falls frequently [R29.6] 04/08/2024 Encounter Status:Closed by BRENDA SANABRIA on 07/22/24 [facility] 07-08-2024 CNPN Telephone (UROLWS) EDISON ALBARRAN ([id number]) 1945 [facility] Time Provider Department 07/08/24 COLTEN ORO During your visit today, we recorded the following information about you: Analy Collins LPN 07/08/2024 2:23 PM Signed Faxed signed order for urological supplies to [facility]. Analy Collins LPN Allergies As of Date: 07/08/2024 Noted Allergy Reaction BACTRIM (SULFAMETHOXAZOLE-TRIMETH* 14 - Other: See Comments Comments: Unknown. CEPHALEXIN 11/22/2014 14 - Other: See Comments Comments: Unknown. CITALOPRAM 01/05/2020 7 - Swelling Comments: Throat swelled CYMBALTA (DULOXETINE) 01/05/2020 14 - Other: See Comments Comments: Made her feel groggy. Date Reviewed: 03/10/2024 Reviewed by: Saray Alexander PA-C - Fully Assessed Reason for Visit: Orders [681] Prescriptions as of 07/08/2024 - levothyroxine (SYNTHROID) 50 mcg tablet Take 1 tablet by mouth daily before breakfast. Sat-Sat and none on Saturday, Saturday - atorvastatin (LIPITOR) 40 mg tablet Take 1 tablet by mouth daily at bedtime. For cholesterol. - FLUoxetine (PROZAC) 40 mg capsule Take 1 capsule by mouth once daily. - potassium chloride SR (MICRO-K) 10 mEq CR capsule Take 2 capsules by mouth once daily. - QUEtiapine (SEROQUEL) 25 mg tablet take 1/2 tablet by mouth at bedtime - donepezil (ARICEPT) 5 mg tablet Take 1 tablet by mouth daily with breakfast. - gabapentin (NEURONTIN) 300 mg capsule Take 1 capsule by mouth daily at bedtime for 180 days. - mirabegron (MYRBETRIQ) 50 mg Tb24 Take 1 tablet by mouth once daily. - cyanocobalamin (VITAMIN B-12) 500 mcg tablet Take 1 tablet by mouth once daily. - omeprazole (PRILOSEC) 40 mg capsule Take 1 capsule by mouth two times a day. Take 30-60 minutes before breakfast and dinner on an empty stomach. - WALKER ROLLATOR SEAT WITH 6 WHEELS - RED Any color is fine and with a basket if available. Dx: Z91.81, M54.40, R20.8, M46.062 and R26.81 Problem List As Of Date 07/08/2024 Noted Resolved Osteoporosis [M81.0] 05/26/2015 Essential hypertension [I10] 2015 Mixed hyperlipidemia [E78.2] 2015 Hypothyroidism (acquired) [E03.9] 2015 Smoker [F17.200] 2015 Pain in joint, multiple sites [M25.50] 12/07/2015 Colon cancer screening [Z12.11] 12/07/2015 09/18/2019 Elevated fasting blood sugar [R73.01] 12/07/2015 09/18/2019 Hematuria [R31.9] 12/14/2015 09/18/2019 Bilateral carotid artery disease (HCC) [I77.9] 12/20/2015 09/18/2019 Decreased sensation of lower extremity [R20.8] 01/04/2016 Spinal stenosis, lumbar region, with neurogenic*01/23/2016 Urgency of urination [R39.15] 06/13/2016 Well adult exam [Z00.00] 12/26/2016 09/18/2019 Chronic bilateral low back pain with sciatica [*12/26/2016 Pain in both hands [M79.641, M79.642] 12/26/2016 09/18/2019 Encounter for screening mammogram for breast ca*12/26/2017 09/18/2019 Medicare annual wellness visit, subsequent [Z00*12/26/2017 Recurrent major depressive disorder, in remissi*07/01/2018 Medication management [Z79.899] 12/31/2018 Bilateral carotid artery stenosis [I65.23] 12/20/2015 Hematuria [R31.9] 12/14/2015 Moderate aortic insufficiency [I35.1] 01/19/2020 Agitation [R45.1] 02/02/2020 Lymphocytic colitis [K52.832] 05/16/2020 Sinus bradycardia [R00.1] 12/21/2020 Protein deficiency (HCC) [E46] 01/24/2021 09/20/2022 Essential tremor [G25.0] 09/18/2021 Living will on file [[id number]] 03/21/2022 Advance directive discussed with patient [Z71.8*03/21/2022 Stage 3a chronic kidney disease (HCC) [N18.31] 09/20/2022 Type 2 diabetes mellitus with stage 3a chronic *09/20/2022 Diabetic eye exam (HCC) [Z01.00, E11.9] 09/24/2022 Dementia without behavioral disturbance (HCC) [*12/20/2022 Hypokalemia [E87.6] 03/02/2023 Failure to thrive in adult [R62.7] 03/02/2023 Unsteady gait [R26.81] 03/06/2023 At risk for falling [Z91.81] 04/12/2023 Gastroesophageal reflux disease without esophag*09/25/2023 Primary insomnia [F51.01] 09/25/2023 Balance problem [R26.89] 04/08/2024 Falls frequently [R29.6] 04/08/2024 Encounter Status:Closed by ANALY COLLINS on 07/08/24 Normal [facility] CNPDanni 06-16-2024 CNPN Telephone (FAMPWS) AVISEDISON Castro ([id number]) 1945 [facility] Date Time Provider Department 06/16/24 [facility] During your visit today, we recorded the following information about you: Brenda Sanabria MA 06/16/2024 9:37 AM Signed Received fax from [facility] from [facility]. Patient requesting: Incontinence Supplies. Most recent O/V printed and given to PCP JANAE Jimenez Roxanne, MA 06/16/2024 10:46 AM Signed Attempted to contact patient; no answer; no voicemail. Contacted Berta to see if patient has been having increased issues with incontinence. She indicated that they are not out at her house enough or long enough to see if this has become an issue. Patient also sees [facility]. JANAE Jimenez Jeffrey A, MD 06/16/2024 4:02 PM Signed Advise [facility] they need to send incontinence supplies request to her Urologist, Brenda Campos MA 06/16/2024 4:34 PM Signed Blue Envelope to [facility]. Brenda Sanabria MA Allergies As of Date: 06/16/2024 Noted Allergy Reaction BACTRIM (SULFAMETHOXAZOLE-TRIMETH* 14 - Other: See Comments Comments: Unknown. CEPHALEXIN 11/22/2014 14 - Other: See Comments Comments: Unknown. CITALOPRAM 01/05/2020 7 - Swelling Comments: Throat swelled CYMBALTA (DULOXETINE) 01/05/2020 14 - Other: See Comments Comments: Made her feel groggy. Date Reviewed: 03/10/2024 Reviewed by: Saray Alexander PA-C - Fully Assessed Primary Visit Diagnosis:Urgency of urination [R39.15] Prescriptions as of 06/16/2024 - levothyroxine (SYNTHROID) 50 mcg tablet Take 1 tablet by mouth daily before breakfast. Sat-Sat and none on Saturday, Saturday - atorvastatin (LIPITOR) 40 mg tablet Take 1 tablet by mouth daily at bedtime. For cholesterol. - FLUoxetine (PROZAC) 40 mg capsule Take 1 capsule by mouth once daily. - potassium chloride SR (MICRO-K) 10 mEq CR capsule Take 2 capsules by mouth once daily. - QUEtiapine (SEROQUEL) 25 mg tablet take 1/2 tablet by mouth at bedtime - donepezil (ARICEPT) 5 mg tablet Take 1 tablet by mouth daily with breakfast. - gabapentin (NEURONTIN) 300 mg capsule Take 1 capsule by mouth daily at bedtime for 180 days. - mirabegron (MYRBETRIQ) 50 mg Tb24 Take 1 tablet by mouth once daily. - cyanocobalamin (VITAMIN B-12) 500 mcg tablet Take 1 tablet by mouth once daily. - omeprazole (PRILOSEC) 40 mg capsule Take 1 capsule by mouth two times a day. Take 30-60 minutes before breakfast and dinner on an empty stomach. - WALKER ROLLATOR SEAT WITH 6 WHEELS - RED Any color is fine and with a basket if available. Dx: Z91.81, M54.40, R20.8, M46.062 and R26.81 Facility-Administered Medications as of 06/16/2024 - menthol-cetylpyridinium 1 Lozenge (CEPACOL LOZENGES) Problem List As Of Date 06/16/2024 Noted Resolved Osteoporosis [M81.0] 05/26/2015 Essential hypertension [I10] 2015 Mixed hyperlipidemia [E78.2] 2015 Hypothyroidism (acquired) [E03.9] 2015 Smoker [F17.200] 2015 Pain in joint, multiple sites [M25.50] 12/07/2015 Colon cancer screening [Z12.11] 12/07/2015 09/18/2019 Elevated fasting blood sugar [R73.01] 12/07/2015 09/18/2019 Hematuria [R31.9] 12/14/2015 09/18/2019 Bilateral carotid artery disease (HCC) [I77.9] 12/20/2015 09/18/2019 Decreased sensation of lower extremity [R20.8] 01/04/2016 Spinal stenosis, lumbar region, with neurogenic*01/23/2016 Urgency of urination [R39.15] 06/13/2016 Well adult exam [Z00.00] 12/26/2016 09/18/2019 Chronic bilateral low back pain with sciatica [*12/26/2016 Pain in both hands [M79.641, M79.642] 12/26/2016 09/18/2019 Encounter for screening mammogram for breast ca*12/26/2017 09/18/2019 Medicare annual wellness visit, subsequent [Z00*12/26/2017 Recurrent major depressive disorder, in remissi*07/01/2018 Medication management [Z79.899] 12/31/2018 Bilateral carotid artery stenosis [I65.23] 12/20/2015 Hematuria [R31.9] 12/14/2015 Moderate aortic insufficiency [I35.1] 01/19/2020 Agitation [R45.1] 02/02/2020 Lymphocytic colitis [K52.832] 05/16/2020 Sinus bradycardia [R00.1] 12/21/2020 Protein deficiency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 Facility: [facility] Address: [address] [place] [address] Performed By: #### U ACR #### [facility] CLIA [id number] [address] [place] [address] [place] MCH (RBC) [Entitic mass] 29.0 pg Normal 26.0-34.0 [facility] Comment on above: Order Comment: Speci men Type: URINE SPECIMEN Ordering Facility: [facility] Address: [address] [place] [address] Performed By: #### U ACR #### [facility] CLIA [id number] [address] [place] [address] [place] MCHC (RBC) [Mass/Vol] 32.2 g/dL Normal 30.5-36.0 [facility] Comment on above: Order Comment: Speci men Type: URINE SPECIMEN Ordering Facility: [facility] Address: [address] [place] [address] Performed By: #### U ACR #### [facility] CLIA [id number] [address] [place] [address] [place] MCV (RBC) [Entitic vol] 90.1 fL Normal 80.0-100.0 [facility] Comment on above: Order Comment: Speci men Type: URINE SPECIMEN Ordering Facility: [facility] Address: [address] [place] [address] Performed By: #### U ACR #### [facility] CLIA [id number] [address] [place] [address] [place] Monocytes (Bld) [#/Vol] 1.01 10*3/uL High <0.87 [facility] Comment on above: Order Comment: Speci men Type: URINE SPECIMEN Ordering Facility: [facility] Address: [address] [place] [address] Performed By: #### U ACR #### [facility] CLIA [id number] [address] [place] [address] [place] Monocytes/100 WBC (Bld) 9.3 % Normal [facility] Comment on above: Order Comment: Speci men Type: URINE SPECIMEN Ordering Facility: [facility] Address: [address] [place] [address] Performed By: #### U ACR #### [facility] CLIA [id number] [address] [place] [address] [place] Neutrophils (Bld) [#/Vol] 6.42 10*3/uL Normal 1.45-7.50 [facility] Comment on above: Order Comment: Speci men Type: URINE SPECIMEN Ordering Facility: [facility] Address: [address] [place] [address] Performed By: #### U ACR #### [facility] CLIA [id number] [address] [place] [address] [place] Neutrophils/100 WBC (Bld) 59.0 % Normal [facility] Comment on above: Order Comment: Speci men Type: URINE SPECIMEN Ordering Facility: [facility] Address: [address] [place] [address] Performed By: #### U ACR #### [facility] CLIA [id number] [address] [place] [address] [place] Nucleated RBC (Bld) [#/Vol] 10*3/uL Normal <0.01 [facility] Comment on above: Order Comment: Speci men Type: URINE SPECIMEN Ordering Facility: [facility] Address: [address] [place] [address] Performed By: #### U ACR #### [facility] CLIA [id number] [address] [place] [address] [place] Nucleated RBC/100 WBC (Bld) [Ratio] 0.0 /100 WBC Normal [facility] Comment on above: Order Comment: Speci men Type: URINE SPECIMEN Ordering Facility: [facility] Address: [address] [place] [address] Performed By: #### U ACR #### [facility] CLIA [id number] [address] [place] [address] [place] Platelet mean volume (Bld) [Entitic vol] 9.8 fL Normal 9.0-12.7 [facility] Comment on above: Order Comment: Speci men Type: URINE SPECIMEN Ordering Facility: [facility] Address: [address] [place] [address] Performed By: #### U ACR #### [facility] CLIA [id number] [address] [place] [address] [place] Platelets (Bld) [#/Vol] 264 10*3/uL Normal 150-400 [facility] Comment on above: Order Comment: Speci men Type: URINE SPECIMEN Ordering Facility: [facility] Address: [address] [place] [address] Performed By: #### U ACR #### [facility] CLIA [id number] [address] [place] [address] [place] RBC (Bld) [#/Vol] 4.24 10*6/uL Normal 3.90-5.20 [facility] Comment on above: Order Comment: Speci men Type: URINE SPECIMEN Ordering Facility: [facility] Address: [address] [place] [address] Performed By: #### U ACR #### [facility] CLIA [id number] [address] [place] [address] [place] WBC (Bld) [#/Vol] 10.88 10*3/uL Normal 3.70-11.00 [facility] Comment on above: Order Comment: Speci men Type: URINE SPECIMEN Ordering Facility: [facility] Address: [address] [place] [address] Performed By: #### U ACR #### [facility] CLIA [id number] [address] [place] [address] [place] CNOVon 04-08-2024 CNOV Office Visit (FAMPWS ) EDISON ALBARRAN ([id number]) [facility] Date Time Provider Department 04/08/24 2:20 PM KURT SARAVIA FAMPWS During your visit today, we recorded the following information about you: Pulse Respiration Blood pressure Weight 64/minute 16/minute 124/60 46.7 kg Height 1.499 m Kurt Saravia MD 04/21/2024 4:04 PM Signed Chief Complaint Patient presents with: Anxiety HPI Edisonpankaj Albarran is a 78 year old female who presents here today for Chronic Medical Conditions. and Medicare Annual Visit. Patient indicated that she has been having issues with balance. Uses a walker when going outside due to balance. Patient indicated she has a rash on her right arm - was outside working around her evergreen shrubs. Patient has 2 bryan dogs and has had 4 batches of 7-8 puppies. Patient sees Saray Alexander for dementia. - please note from this visit. Patient says a woman came to her home yesterday to look in her home. Patient claims the person did not introduce herself and did not tell her who she was or from what agency she was from. Patient also says she can not really remember the conversation. Patient changes her story several times and adds info each time. Patient says the person told her nothing when she left other than thanks for letting me look at your house again Since Casey her son on 07/18/2024 she has noted her anxiety is much worse and her focus. Her only other son lives in [place] and he does not interact with her. Last time she saw him or talked with him was maybe a year ago. Her Granddaughter is trying to help but she lives in [place]. Patient drove herself to [employer] today and lives in [place]. Patient will drive to the [employer] in [place] to get what she needs otherwise will not leave her home because she is afraid to and it is also a hardship to leave her home due to her balance issues and since her memory is not good she just sticks to familiar locations. Patient claims to have had balance issues for years. She had a fall recently sliding off her bed and hit her head but refused to go to the ED. Patient told her grand daughter it was do to musculoskeletal pain. No dizziness or vision changes. Patient has a walker but does not use it to prevent falls. Says her home is to small to use it but did not bring it with her to help get into the office. Patient is having a problem remembering to take her medication. Then changes that and says it's not often. Does not want to move into an assisted living facility. Past medical history, appointments, medications, allergies reviewed. Previous Medical History PAST MEDICAL HISTORY Diagnosis Date Advance directive discussed with patient 03/21/202203/2022 Agitation 02/02/2020 Aneurysm of right subclavian artery (HCC) At risk for falling 04/12/2023 Bilateral carotid artery disease (HCC) 12/20/2015 US 12/2015: 20-40% on Rt and 40-60% on left. US 01/2017 unchanged. Chronic bilateral low back pain with sciatica 12/26/2016 Constipation 07/09/2018 after starting lipitor Decreased sensation of lower extremity 01/04/2016 Dementia without behavioral disturbance ([facility]) 12/20/2022 Diabetic eye exam (HCC) 09/24/2022 Last done 08/08/22 Essential hypertension 2015 Essential tremor 09/18/2021 Ex-smoker 2015 1/2-1 PPD since early 50s, quit January 2018 Failure to thrive in adult 03/02/2023 Gastroesophageal reflux disease without esophagitis 09/25/2023 Hematuria 12/14/2015 Urology w/u neg. Hypothyroidism (acquired) 2015 Living will on file 03/21/2022 DPA; Casey (son) Lymphocytic colitis 05/16/2020 Possibly Zoloft related. Mediastinal lymphadenopathy 08/04/2018 Prominent Mediastinal lymphadenopathy noted on CT 08/01/18. CT 01/05/2019 no mediastinal lymphadenopathy Mixed hyperlipidemia 2015 Moderate aortic insufficiency 01/19/[address] Cordoba Osteoporosis 05/26/2015 Overactive bladder Pain in both hands 12/26/2016 Pain in joint, multiple sites 12/07/2015 On neurontin Primary insomnia 09/25/2023 Seeing Neuro Recurrent major depressive disorder, in remission ([facility]) 07/01/2018 Spinal stenosis, lumbar region, with neurogenic claudication 01/23/2016 Stage 3a chronic kidney disease ([facility]) 09/20/2022 Type 2 diabetes mellitus with stage 3a chronic kidney disease ([facility]) 09/20/2022 Type 2 diabetes mellitus without complication, without long-term current use of insulin ([facility]) 12/07/2015 Unsteady gait 03/06/2023 Urgency of urination 06/13/2016 Previous Surgical History PAST SURGICAL HISTORY Procedure Laterality Date 2D ECHO (EXEP) 09/2020 EF=64%, Mild Noe dysf and La enlargment, 2+ AR CARPAL TUNNEL RIGHT WRIST COLONOSCOPY 2010 repeat 10 yrs COLONOSCOPY FLX DX W/COLLJ SPEC WHEN PFRMD 04/21/2020 Colonoscopy CORRECTION OF BUNION Left ESOPHAGOGASTROD (more content not included)... Normal [facility] Comprehensive metabolic 2000 panelon 04-08-2024 Albumin [Mass/Vol] 4.3 g/dL Normal 3.9-4.9 [facility] Comment on above: Order Comment: Speci men Type: BLOOD SPECIMEN Ordering Facility: [facility] Address: [address] [place] [address] Performed By: #### 2 4323-8, LIPNF, 3016-3, 47371-4 #### [facility] CLIA [id number] [address] [place] [address] [place] ALP [Catalytic activity/Vol] 135 U/L High 34-123 [facility] Comment on above: Order Comment: Speci men Type: BLOOD SPECIMEN Ordering Facility: [facility] Address: [address] [place] [address] Performed By: #### 2 4323-8, LIPNF, 3015-3, #### [facility] CLIA [id number] [address] [place] [address] [place] ALT [Catalytic activity/Vol] 16 U/L Normal 7-38 [facility] Comment on above: Order Comment: Speci men Type: BLOOD SPECIMEN Ordering Facility: [facility] Address: [address] [place] [address] Performed By: #### 2 4323-8, LIPNF, 3015-3, #### [facility] CLIA [id number] [address] [place] [address] [place] Anion gap [Moles/Vol] 11 mmol/L Normal 8-15 [facility] Comment on above: Order Comment: Speci men Type: BLOOD SPECIMEN Ordering Facility: [facility] Address: [address] [place] [address] Performed By: #### 2 4323-8, LIPNF, 6-3, #### [facility] CLIA [id number] [address] [place], [place] [id number] [place] AST [Catalytic activity/Vol] 33 U/L Normal 13-35 [facility] Comment on above: Order Comment: Speci men Type: BLOOD SPECIMEN Ordering Facility: [facility] Address: [address] [place] [address] Performed By: #### 2 4323-8, LIPNF, 3015-12, #### [facility] CLIA [id number] [address] [place], [place] [address] [place] Bilirubin [Mass/Vol] 0.6 mg/dL Normal 0.2-1.3 [facility] Comment on above: Order Comment: Speci men Type: BLOOD SPECIMEN Ordering Facility: [facility] Address: [address] [place] [address] Performed By: #### 2 4323-8, LIPNF, 3015-12, #### [facility] CLIA [id number] [address] [place] [address] [place] Calcium [Mass/Vol] 10.2 mg/dL Normal 8.5-10.2 [facility] Comment on above: Order Comment: Speci men Type: BLOOD SPECIMEN Ordering Facility: [facility] Address: [address] [place] [address] Performed By: #### 2 4323-8, LIPNF, 3015-12, #### [facility] CLIA [id number] [address] [place] [address] [place] Chloride [Moles/Vol] 101 mmol/L Normal 98-107 [facility] Comment on above: Order Comment: Speci men Type: BLOOD SPECIMEN Ordering Facility: [facility] Address: [address] [place] [address] Performed By: #### 2 4323-8, LIPNF, 3015-12, #### [facility] CLIA [id number] [address] [place], [place] [address] [place] CO2 [Moles/Vol] 28 mmol/L Normal 22-30 [facility] Comment on above: Order Comment: Speci men Type: BLOOD SPECIMEN Ordering Facility: [facility] Address: [address] [place] [address] Performed By: #### 2 4323-8, LIPNF, 3, #### [facility] CLIA [id number] [address] [place] [address] [place] Creatinine [Mass/Vol] 0.78 mg/dL Normal 0.58-0.96 [facility] Comment on above: Order Comment: Speci men Type: BLOOD SPECIMEN Ordering Facility: [facility] Address: [address] [place] [address] Performed By: #### 2 4323-8, LIPLUIS, 3015-12, #### [facility] CLIA [id number] [address] [place] [address] [place] Creatinine and Glomerular filtration rate.predicted panel (S/P/Bld) 77 mL/min/1.73m??? Normal >=60 [facility] Comment on above: Order Comment: Miteshi men Type: BLOOD SPECIMEN Ordering Facility: [facility] Address: [address] [place] [address] Result Comment: Britney mated Glomerular Filtration Rate (eGFR) is calculated using the 2020 CKD-EPI creatinine equation. This equation utilizes serum creatinine, sex, and age as parameters. The creatinine assay has traceable calibration to isotope dilution-mass spectrometry. Refer to KDIGO guidelines for clinical interpretation. In patients with unstable renal function, e.g. those with acute kidney injury, the eGFR may not accurately reflect actual GFR. Performed By: #### 2 4323-8, LIPNF, 3, #### [facility] CLIA [id number] [address] [place] [address] [place] Glucose [Mass/Vol] 87 mg/dL Normal 74-99 [facility] Comment on above: Order Comment: Miteshi men Type: BLOOD SPECIMEN Ordering Facility: [facility] Address: [address] [place] [address] Result Comment: The [place] Diabetes Association (ADA) provides guidance for cutoff values for fasting glucose and random glucose. The ADA defines fasting as no caloric intake for at least 8 hours. Fasting plasma glucose results between 100 to 125 mg/dL indicate increased risk for diabetes (prediabetes). Fasting plasma glucose results greater than or equal to 126 mg/dL meet the criteria for diagnosis of diabetes. In the absence of unequivocal hyperglycemia, results should be confirmed by repeat testing. In a patient with classic symptoms of hyperglycemia or hyperglycemic crisis, random plasma glucose results greater than or equal to 200 mg/dL meet the criteria for diagnosis of diabetes. Reference: Standards of Medical Care in Diabetes 2016, [place] Diabetes Association. Diabetes Care. 2016.39(Suppl 1). Performed By: #### 2 4323-8, LIPLUIS, 3015-12, #### [facility] CLIA [id number] [address] [place] [address] [place] Potassium [Moles/Vol] 4.1 mmol/L Normal 3.7-5.1 [facility] Comment on above: Order Comment: Speci men Type: BLOOD SPECIMEN Ordering Facility: [facility] Address: [address] [place] [address] Performed By: #### 2 4323-8, LIPLUIS, 3015-12, #### [facility] CLIA [id number] [address] [place] [address] [place] Protein [Mass/Vol] 6.8 g/dL Normal 6.3-8.0 [facility] Comment on above: Order Comment: Speci men Type: BLOOD SPECIMEN Ordering Facility: [facility] Address: [address] [place] [address] Performed By: #### 2 4323-8, LIPNF, 3015-12, #### [facility] CLIA [id number] [address] [place] [address] [place] Sodium [Moles/Vol] 140 mmol/L Normal 136-144 [facility] Comment on above: Order Comment: Speci men Type: BLOOD SPECIMEN Ordering Facility: [facility] Address: [address] [place] [address] Performed By: #### 2 4323-8, LIPNF, 3015-3, #### [facility] CLIA [id number] [address] [place] [address] [place] Urea nitrogen [Mass/Vol] 5 mg/dL Low 7-21 [facility] Comment on above: Order Comment: Speci men Type: BLOOD SPECIMEN Ordering Facility: [facility] Address: [address] [place] [address] Performed By: #### 2 4323-8, LIPNF, 3015-3, #### [facility] CLIA [id number] [address] [place] [address] [place] HbA1c (Bld)on 04-08-2024 Average glucose Estimated from glycated hemoglobin (Bld) [Mass/Vol] 103 mg/dL Normal [facility] Comment on above: Order Comment: Speci men Type: URINE SPECIMEN Ordering Facility: [facility] Address: [address] [place] [address] Result Comment: eAG: (Estimated average glucose) is a calculated value from HgbA1c and is patient service representative of the average blood glucose level in the last 2-3 month period. Performed By: #### 2 4356-8 #### [facility] CLIA [id number] [address] [place] [address] [place] HbA1c (Bld) [Mass fraction] 5.2 % Normal 4.3-5.6 [facility] Comment on above: Order Comment: Speci men Type: URINE SPECIMEN Ordering Facility: [facility] Address: [address] [place] [address] Result Comment: [place] Diabetes Association guidelines indicate that patients with HgbA1c in the range 5.7-6.4% are at increased risk for development of diabetes, and intervention by lifestyle modification may be beneficial. HgbA1c greater or equal to 6.5% is considered diagnostic of diabetes. Performed By: #### 2 4356-8 #### [facility] CLIA [id number] [facility] [place] [address] [place] [facility] [place] LIPID PANEL, NONFASTINGon Cholesterol [Mass/Vol] 178 mg/dL Normal <200 [facility] Comment on above: Order Comment: Speci men Type: BLOOD SPECIMEN Ordering Facility: [facility] Address: [address] [place] [address] Result Comment: <200 mg/dL, Desirable 200-239 mg/dL, Borderline high >239 mg/dL, High Performed By: #### 2 4323-8, LIPNF, 3015-3, #### [facility] CLIA [id number] [address] [place] [address] [place] HDL CHOLESTEROL, NF 46 mg/dL Normal >39 [facility] Comment on above: Order Comment: Speci men Type: BLOOD SPECIMEN Ordering Facility: [facility] Address: [address] [place] [address] Result Comment: 40-5 9 mg/dL, Acceptable >59 mg/dL, High: Negative risk factor for coronary heart disease <40 mg/dL, Low: Positive risk factor for coronary heart disease Performed By: #### 2 4323-8, LIPNF, 3, #### [facility] CLIA [id number] [address] [place] [address] [place] LDL CHOLESTEROL, NF 98 mg/dL Normal <100 [facility] Comment on above: Order Comment: Miteshi men Type: BLOOD SPECIMEN Ordering Facility: [facility] Address: [address] [place] [address] Result Comment: <100 mg/dL, Optimal 100-129 mg/dL, Near optimal/above optimal 130-159 mg/dL, Borderline high 160-189 mg/dL, High >189 mg/dL, Very high Secondary prevention optimal LDL Cholesterol levels are recommended to be < 70 mg/dL Performed By: #### 2 4323-8, LIPNF, 3, #### [facility] CLIA [id number] [address] [place] [address] [place] LDL/HDL RATIO, NF 2.13 mg/dL Normal <2.54 [facility] Comment on above: Order Comment: Deshawn ramirez Type: BLOOD SPECIMEN Ordering Facility: [facility] Address: [address] [place] [address] Result Comment: Refe rence: 1. National Cholesterol Education Program ATP III Guideline At-A-Glance Quick Desk Reference: National Heart, Lung, and Blood [place]. National Institutes of Health. 2001: NIH Publication No. 01-3305. 2. An International Atherosclerosis Society position paper: global recommendations for the management of dyslipidemia: executive summary, Atherosclerosis. 2014: 232(2):410-413. Performed By: #### 2 4323-8, LIPNF, 3015-12, #### [facility] CLIA [id number] [address] [place] [address] [place] NON HDL CHOL, NF 132 mg/dL High <130 [facility] Comment on above: Order Comment: Deshawn ramirez Type: BLOOD SPECIMEN Ordering Facility: [facility] Address: [address] [place] [address] Result Comment: <130 mg/dL, Optimal 130-159 mg/dL, Near optimal/above optimal 160-189 mg/dL, Borderline high 190-219 mg/dL, High >219 mg/dL, Very high Secondary prevention optimal non HDL Cholesterol levels are recommended to be <100 mg/dL Performed By: #### 2 4323-8, LIPNF, 3015-3, #### [facility] [facility] CLIA [id number] [address] [place] [address] [place] T CHOL/HDL RATIO NF 3.87 mg/dL Normal <5.10 [facility] Comment on above: Order Comment: Miteshi men Type: BLOOD SPECIMEN Ordering Facility: [facility] Address: [address] [place] [address] Performed By: #### 2 4323-8, LIPNF, 3015-3, #### [facility] CLIA [id number] [address] [place] [address] [place] TRIGLYCERIDES, NF 172 mg/dL High <150 [facility] Comment on above: Order Comment: Speci men Type: BLOOD SPECIMEN Ordering Facility: [facility] Address: [address] [place] [address] Result Comment: <150 mg/dL, Normal 150-199 mg/dL, Borderline high 200-499 mg/dL, High >499 mg/dL, Very high Performed By: #### 2 4323-8, LIPNF, 3015-3, #### [facility] CLIA [id number] [address] [place] [address] [place] VLDL CHOLESTEROL, NF 34 mg/dL High <30 [facility] Comment on above: Order Comment: Speci men Type: BLOOD SPECIMEN Ordering Facility: [facility] Address: [address] [place] [address] Performed By: #### 2 4323-8, LIPNF, 3015-3, #### [facility] CLIA [id number] [address] [place] [address] [place] Magnesium SerPl-mCncon 04-08 Magnesium [Mass/Vol] 1.9 mg/dL Normal 1.7-2.3 [facility] Comment on above: Order Comment: Speci men Type: BLOOD SPECIMEN Ordering Facility: [facility] Address: [address] [place] [address] Performed By: #### 2 4323-8, LIPNF, 3, #### [facility] CLIA [id number] [address] [place] [address] [place] TSH SerPl-aCncon 04-08-2024 TSH Qn 1.490 m[IU]/L Normal 0.270-4.200 [facility] Comment on above: Order Comment: Speci men Type: BLOOD SPECIMEN Ordering Facility: [facility] Address: [address] [place] [address] Performed By: #### 2 4323-8, LIPNF, 3016-3, 66434-0 #### [facility] CLIA [id number] [address] [place] [address] [place] Urinalysis complete panel (U )on 04-08-2024 Bacteria LM.HPF (Urine sed) [#/Area] Negative Normal Negative [facility] Comment on above: Order Comment: Speci men Type: URINE SPECIMEN Ordering Facility: [facility] Address: [address] [place] [address] Performed By: #### 2 4356-8 #### [facility] CLIA [id number] [address] [place] [address] [place] Bilirubin Ql (U) Negative Normal Negative [facility] Comment on above: Order Comment: Speci men Type: URINE SPECIMEN Ordering Facility: [facility] Address: [address] [place] [address] Performed By: #### 2 4356-8 #### [facility] CLIA [id number] [address] [place] [address] [place] Clarity (Unsp spec) Clear Normal Clear [facility] Comment on above: Order Comment: Speci men Type: URINE SPECIMEN Ordering Facility: [facility] Address: [address] [place] [address] Performed By: #### 2 4356-8 #### [facility] CLIA [id number] [address] [place] [address] [place] Color (U) Yellow Normal Yellow [facility] Comment on above: Order Comment: Speci men Type: URINE SPECIMEN Ordering Facility: [facility] Address: [address] [place] [address] Performed By: #### 2 4356-8 #### [facility] CLIA [id number] [address] [place] [address] [place] Epithelial cells LM.HPF (Urine sed) [#/Area] None Seen Normal [facility] Comment on above: Order Comment: Speci men Type: URINE SPECIMEN Ordering Facility: [facility] Address: [address] [place] [address] Performed By: #### 2 4356-8 #### [facility] CLIA [id number] [address] [place] [address] [place] Glucose Test strip (U) [Mass/Vol] Negative Normal Negative [facility] Comment on above: Order Comment: Speci men Type: URINE SPECIMEN Ordering Facility: [facility] Address: [address] [place] [address] Performed By: #### 2 4356-8 #### [facility] CLIA [id number] [address] [place] [address] [place] Hemoglobin Ql (U) Negative Normal Negative [facility] Comment on above: Order Comment: Speci men Type: URINE SPECIMEN Ordering Facility: [facility] Address: [address] [place] [address] Performed By: #### 2 4356-8 #### [facility] CLIA [id number] [address] [place] [address] [place] Hyaline casts (Urine sed) [#/Area] 0 /[LPF] Normal 0 /LPF [facility] Comment on above: Order Comment: Speci men Type: URINE SPECIMEN Ordering Facility: [facility] Address: [address] [place] [address] Performed By: #### 2 4356-8 #### [facility] CLIA [id number] [address] [place] [address] [place] Ketones Ql (U) Negative Normal Negative [facility] Comment on above: Order Comment: Speci men Type: URINE SPECIMEN Ordering Facility: [facility] Address: [address] [place] [address] Performed By: #### 2 4356-8 #### [facility] CLIA [id number] [address] [place] [address] [place] Leukocyte esterase Test strip Ql (U) 2+ Abnormal Negative [facility] Comment on above: Order Comment: Speci men Type: URINE SPECIMEN Ordering Facility: [facility] Address: [address] [place] [address] Performed By: #### 2 4356-8 #### [facility] CLIA [id number] [address] [place] [address] [place] Nitrite Ql (U) Negative Normal Negative [facility] Comment on above: Order Comment: Speci men Type: URINE SPECIMEN Ordering Facility: [facility] Address: [address] [place] [address] Performed By: #### 2 4356-8 #### [facility] CLIA [id number] [address] [place] [address] [place] pH (U) 6.5 [pH] Normal <8.5 [facility] Comment on above: Order Comment: Speci men Type: URINE SPECIMEN Ordering Facility: [facility] Address: [address] [place] [address] Performed By: #### 2 4356-8 #### [facility] CLIA [id number] [address] [place] [address] [place] Protein (U) [Mass/Vol] Negative Normal Negative [facility] Comment on above: Order Comment: Speci men Type: URINE SPECIMEN Ordering Facility: [facility] Address: [address] [place] [address] Performed By: #### 2 4356-8 #### [facility] CLIA [id number] [address] [place] [address] [place] RBC LM.HPF (Urine sed) [#/Area] 0-2 /HPF Normal 0-2 /HPF [facility] Comment on above: Order Comment: Speci men Type: URINE SPECIMEN Ordering Facility: [facility] Address: [address] [place] [address] Performed By: #### 2 4356-8 #### [facility] CLIA [id number] [address] [place] [address] [place] Specific gravity (U) [Rel density] 1.006 Normal 1.005-1.030 [facility] Comment on above: Order Comment: Speci men Type: URINE SPECIMEN Ordering Facility: [facility] Address: [address] [place] [address] Performed By: #### 2 4356-8 #### [facility] CLIA [id number] [address] [place] [address] [place] Urobilinogen Ql (U) 0.2 EU/dL Normal 0.2-1.0 EU/dL [facility] Comment on above: Order Comment: Speci men Type: URINE SPECIMEN Ordering Facility: [facility] Address: [address] [place] [address] Performed By: #### 2 4356-8 #### [facility] CLIA [id number] [address] [place] [address] [place] WBC LM.HPF (Urine sed) [#/Area] 0-5 /HPF Normal 0-5 /HPF [facility] Comment on above: Order Comment: Speci men Type: URINE SPECIMEN Ordering Facility: [facility] Address: [address] [place] [address] Performed By: #### 2 4356-8 #### [facility] CLIA [id number] [address] [place] [address] [place] Vit B12 SerPl-ncon 07-03-2 024 Cobalamin (Vitamin B12) [Mass/Vol] 1021 pg/mL Normal 232-1245 [facility] Comment on above: Order Comment: Speci men Type: BLOOD SPECIMEN Ordering Facility: [facility] Address: [address] [place] [address] Performed By: #### 2 132-9 #### [facility] CLIA [id number] [address] [place] [address] [place] [address] [place] CNCOon 04-06-2024 CNCO Letter Text Normal [facility] CNPNon 03-23-2024 CNPN Telephone (FAMPWS) EDISON ALBARRAN ([id number]) 1945 F [place] Date Time Provider Department 03/23/24 [facility] During your visit today, we recorded the following information about you: Donna Rhodes, RN 03/23/2024 6:15 PM Signed Pt called in stating that providers office had called her several times. I could not see where we had called her. I do see where Dr Saravia had a message to Pt about making an appointment in order to get a visiting nurse set up. Pt was very confused and laughing at everything. She was talking about how she went driving and she came home and shut the garage door on her car and broke the door. She is laughing and states the neighbor came over and helped her fix it. I told her she shouldn't be driving herself to [place] from [employer], and to call in when she can get a ride to an appointment. Kurt Saravia MD 03/23/2024 6:50 PM Signed Patient needs an appt to be seen to determine [facility] services such as nursing for medication adherence, SW for home safety, PHYSICAL THERAPY for balance issues and falls. Brenda Sanabria MA 03/24/2024 8:13 AM Signed Went straight to voice mail. Left message to contact office as patient needs to be seen by provider. JANAE Jimenez Erin, MSW 03/24/2024 9:15 AM Signed See Sw note 03/11/24, [facility] had noted to Sw that they are working on setting up patient with Passport services. This is in the process. Once finalized patient could receive assistance with home reservoir caretaker, home delivered meals, transportation to medical appts, medical alert button cost. This would also mean patient is eligible for Medicaid as that is one of the main qualifiers. Kurt Saravia MD 03/24/2024 12:34 PM Signed Merrill can she have HHC along with passport for residential for med adherence and home PHYSICAL THERAPY/OT? Kamliah Newman, LEARNING DESIGNER 03/24/2024 1:37 PM Signed Yes, a person may have Passport services and HH services at the same time. Passport services are particularly for home reservoir caretaker/non skilled assistance.HH is for mcfp, PT/OT, SW as long as patient is also home bound. Donna Rhodes RN 04/06/2024 10:07 AM Signed Pt has an appointment today with Mally [facility] at 1320. Marty Barkley LPN 04/07/2024 9:22 AM Signed Spoke with pt and advised her she had missed appointment yesterday. Pt advises that she didn't see it on the calendar but that doesn't mean it wasn't on there. Pt laughs a lot and advises that she does have a lot of confusion off and on. Scheduled pt with pcp as she states she hasn't seen him in a long time. Pt wrote down appointment info while speaking with this nurse. Pt advises that it's sometimes hard to get up and get going in the am, it takes her awhile but she thinks she can make the appointment. Pt did not want this nurse to contact her neighbor who sometimes brings her to appointment. State she will check with her to see if she is available. Pt advises that if her neighbor cannot bring her that she drives. Laughs and says that she just goes slowly. Advises that [place] is as far as she drives. Asked pt if she is getting any assistance at home but advises that she is not. States she just got a letter yesterday that upset her telling her that she makes too much money to get help. Pt couldn't explain the letter in detail and was advised to bring letter to appointment tomorrow. Pt states she will go put it with her stuff when she gets off of the phone. Marty Barkley LPN Allergies As of Date: 03/23/2024 Noted Allergy Reaction BACTRIM (SULFAMETHOXAZOLE-TRIMETH* 14 - Other: See Comments Comments: Unknown. CEPHALEXIN 11/22/2014 14 - Other: See Comments Comments: Unknown. CITALOPRAM 01/05/2020 7 - Swelling Comments: Throat swelled CYMBALTA (DULOXETINE) 01/05/2020 14 - Other: See Comments Comments: Made her feel groggy. Date Reviewed: 03/10/2024 Reviewed by: Saray Alexander PA-C - Fully Assessed Reason for Visit: Appointment [186] Prescriptions as of 04/07/2024 - atorvastatin (LIPITOR) 40 mg tablet Take 1 tablet by mouth daily at bedtime. For cholesterol. - FLUoxetine (PROZAC) 40 mg capsule Take 1 capsule by mouth once daily. - potassium chloride SR (MICRO-K) 10 mEq CR capsule Take 2 capsules by mouth once daily. - QUEtiapine (SEROQUEL) 25 mg tablet take 1/2 tablet by mouth at bedtime - donepezil (ARICEPT) 5 mg tablet Take 1 tablet by mouth daily with breakfast. - gabapentin (NEURONTIN) 300 mg capsule Take 1 capsule by mouth daily at bedtime for 180 days. - mirabegron (MYRBETRIQ) 50 mg Tb24 Take 1 tablet by mouth once daily. - cyanocobalamin (VITAMIN B-12) 500 mcg tablet Take 1 tablet by mouth once daily. - levothyroxine (SYNTHROID) 50 mcg tablet Take 1 tablet by mouth daily before breakfast. Mon-Fri and none on Saturday, Saturday - omep (more content not included)... Normal [facility] Nadege 03-11-2024 BRANDON Telephone (NAVWST) EDWARDGERMANEDISON ([id number]) 1945 F [place] Date Time Provider Department 03/11/24 KAMILAH NEWMAN During your visit today, we recorded the following information about you: Kamilah Newman, LEARNING DESIGNER 03/11/2024 9:38 AM Signed Hayley called patient in regards to recent visit with [facility]. Concern for patient living alone and what services patient receiving. No answer when Sw called patient. Hayley note from 11/26/23 notes [facility] work with patient and niece in regards to applying to their services. Hayley notes in scanned documents under 02/25/24 [facility] had sent form to Dr. Saravia to complete for patient level of care need. Looks like Dr. Saravia has completed the Level of Care forms. Kamilah Newman, [facility] 03/11/2024 10:55 AM Signed Did we ever receiving any information back from [facility] after faxing them physician form on 02/20/24? Brenda Sanabria MA 03/11/2024 11:17 AM Signed Kamilah, We have not records of receiving anything back from them. Only record is us faxing the information to them. JANAE Jimenez Erin, [facility] 03/11/2024 12:01 PM Signed [facility] received back physician completed referral for Passport services. Kamilah Newman, [facility] 03/12/2024 1:07 PM Signed Hayley spoke with Lianet, [facility] and she notes that she received form from Dr. Saravia and they are working to process form to see about patient eligibility for service assistance from [facility]. Allergies As of Date: 03/11/2024 Noted Allergy Reaction BACTRIM (SULFAMETHOXAZOLE-TRIMETH* 14 - Other: See Comments Comments: Unknown. CEPHALEXIN 11/22/2014 14 - Other: See Comments Comments: Unknown. CITALOPRAM 01/05/2020 7 - Swelling Comments: Throat swelled CYMBALTA (DULOXETINE) 01/05/2020 14 - Other: See Comments Comments: Made her feel groggy. Date Reviewed: 03/10/2024 Reviewed by: Saray Alexander PA-C - Fully Assessed Prescriptions as of 03/13/2024 - atorvastatin (LIPITOR) 40 mg tablet Take 1 tablet by mouth daily at bedtime. For cholesterol. - FLUoxetine (PROZAC) 40 mg capsule Take 1 capsule by mouth once daily. - potassium chloride SR (MICRO-K) 10 mEq CR capsule Take 2 capsules by mouth once daily. - QUEtiapine (SEROQUEL) 25 mg tablet take 1/2 tablet by mouth at bedtime - donepezil (ARICEPT) 5 mg tablet Take 1 tablet by mouth daily with breakfast. - gabapentin (NEURONTIN) 300 mg capsule Take 1 capsule by mouth daily at bedtime for 180 days. - mirabegron (MYRBETRIQ) 50 mg Tb24 Take 1 tablet by mouth once daily. - cyanocobalamin (VITAMIN B-12) 500 mcg tablet Take 1 tablet by mouth once daily. - levothyroxine (SYNTHROID) 50 mcg tablet Take 1 tablet by mouth daily before breakfast. Sat-Sat and none on Saturday, Saturday - omeprazole (PRILOSEC) 40 mg capsule Take 1 capsule by mouth two times a day. Take 30-60 minutes before breakfast and dinner on an empty stomach. - WALKER ROLLATOR SEAT WITH 6 WHEELS - RED Any color is fine and with a basket if available. Dx: Z91.81, M54.40, R20.8, M46.062 and R26.81 - cyclobenzaprine (FLEXERIL) 10 mg tablet Take 1 tablet by mouth every 8 hours as needed for muscle spasm (or pain). - wheat dextrin (BENEFIBER HEALTHY SHAPE) 5 gram/7.4 gram powd Take 2 teaspoonsful by mouth once daily. - amino acids (AMINO ACID ORAL) Take 3 g by mouth once daily. Peptide powder - VITAMIN E ACETATE ORAL Take 10 mg by mouth once daily. - ascorbic acid (VITAMIN C ORAL) Take 90 mg by mouth once daily. - aspirin, enteric coated (ADULT LOW DOSE ASPIRIN) 81 mg EC tablet Take 1 tablet by mouth once daily. Facility-Administered Medications as of 03/13/2024 - menthol-cetylpyridinium 1 Lozenge (CEPACOL LOZENGES) Problem List As Of Date 03/11/2024 Noted Resolved Osteoporosis [M81.0] 05/26/2015 Essential hypertension [I10] 2015 Mixed hyperlipidemia [E78.2] 2015 Hypothyroidism (acquired) [E03.9] 2015 Smoker [F17.200] 2015 Pain in joint, multiple sites [M25.50] 12/07/2015 Colon cancer screening [Z12.11] 12/07/2015 09/18/2019 Elevated fasting blood sugar [R73.01] 12/07/2015 09/18/2019 Hematuria [R31.9] 12/14/2015 09/18/2019 Bilateral carotid artery disease (HCC) [I77.9] 12/20/2015 09/18/2019 Decreased sensation of lower extremity [R20.8] 01/04/2016 Spinal stenosis, lumbar region, with neurogenic*01/23/2016 Urgency of urination [R39.15] 06/13/2016 Well adult exam [Z00.00] 12/26/2016 09/18/2019 Chronic bilateral low back pain with sciatica [*12/26/2016 Pain in both hands [M79.641, M79.642] 12/26/2016 09/18/2019 Encounter for screening mammogram for breast ca*12/26/2017 09/18/2019 Medicare annual wellness visit, subsequent [Z00*12/26/2017 Recurrent major depressive disorder, (more content not included)... Normal [facility] CNOVon 03-10-2024 CNOV Office Visit (SAURABH ) EDISON ALBARRAN ([id number]) 1945 F [place] Date Time Provider Department 03/10/24 1:45 PM SARAY ALEXANDER During your visit today, we recorded the following information about you: Respiration Weight 16/minute 45.5 kg Erik Ponce LPN 03/10/2024 3:11 PM Signed Saray Alexander PA-C 03/10/2024 3:11 PM Signed [facility] Date: March 10, 2024 Patient Name: Edison Albarran Referring physician: No referring provider defined for this encounter. Primary physician: Kurt Saravia [address] [place] [address] Reason for Evaluation: memory loss Subjective HPI Edison Albarran is a 78 year old right-handed female with history of tremor, insomnia, HTN, HLD, CKD stage 3, DM type 2, hypothyroidism, depression, lumbar stenosis, dementia who presents for evaluation of memory loss. Dr. Kurt Saravia MD is the PCP. Chart review: Saw PCP on 11/26/23 for dementia, lives alone. On aricept 5mg and seroquel. Last saw brain health 07/24/23 and noted possibly stopping seroquel due to dizziness, decreased Aricept to 5mg due to dizziness. Patient presents with a friend for multiple concerns. Patient notes she has been having frequent falls, dizziness and memory issues. Follows with [facility] with last appointment in July and is on 5 mg of Aricept and 12.5 mg of Seroquel. However, history is extremely limited, patient does not remember the names of any of her medications and is very poor historian. Notes that her last fall was on Saturday, had her dog and her leash. Notes that her dog was a full-grown pit bull lunged forward causing her to fall. States that people told her that she flipped up in the air and landed on her back. Does not remember anything regarding this, is unsure if she lost consciousness. Notes that she now having some left-sided rib pain and has some difficulty breathing in deeply and moving. Notes history of fractures in the ribs in the past. Notes that her last fall before this was a few months ago due to dizziness. Describes the dizziness as a presyncope, lightheadedness that is worse in the morning and worse after eating. Notes that over the last few months or so she has been having issues with nausea and vomiting, has been followed with GI for years. Drinks to fall pitchers of caffeinated black tea a day along with protein shakes. No recent weight loss. Notes that she currently lives alone after her son in July. Notes that she can go a month that talking anyone and primarily talks with her dogs. History is limited, but it sounds like patient has upwards of 9+ dogs at home. States that her dog recently had puppies and she has multiple young puppies at home as well that are destroying her house . Notes that she is very overwhelmed with this and is unable to greens picker the dogs due to their size. Patient's friend states that he saw her medications today and both January and February were untouched, she did not take medications at all during these months. Patient is unable to give an explanation as to why. Patient does have a life alert necklace but does not wear it. Patient does not regularly leave the stove on, states that she will set a timer for 15 minutes when she starts cooking so that she has back into the kitchen to turn off the stove. Cleans her own house, but states she is having some issues with that right now. No longer drives. Labs/Imaging CT brain 03/01/23 IMPRESSION: No acute intracranial abnormality. 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 MRI brain 12/19/22 IMPRESSION: No acute intracranial findings. Moderate background chronic microvascular ischemic change. Moderate generalized brain volume loss, some progression since prior study. CTA head and neck 12/19/22 IMPRESSION: Atherosclerotic change as noted. No significant carotid stenosis on the right. 70% short segment left ICA stenosis. Vertebral arteries are patent in the neck. Left is dominant. Patent intracranial arterial and venous vasculature. No evidence for acute proximal large vessel occlusion or venous occlusion. Medications: Current Outpatient Medications Medication Sig Dispense Refill atorvastatin (LIPITOR) 40 mg tablet Take 1 tablet by mouth daily at bedtime. For cholesterol. 90 tablet 1 FLUoxetine (PROZAC) 40 mg capsule Take 1 capsule by mouth once daily. 30 capsule 5 potassium chloride SR (MICRO-K) 10 mEq CR capsule Take 2 capsules by mouth once daily. 60 capsule 5 QUEtiapine (SEROQUEL) 25 mg tablet take 1/2 tablet by mouth at bedtime 90 tablet 1 donepezil (ARICEPT) 5 mg tablet Take 1 tablet by mouth daily with b (more content not included)... [facility] Tele[facility] (SLEWST) AVISEDISON ([id number]) 1945 F [facility] Date Time Provider Department 02/17/24 NEUROLOGY PROVIDER SLEWST During your visit today, we recorded the following information about you: Erik Ponce LPN 02/17/2024 11:35 AM Signed Phone call placed spoke to January (listed on patients chart) PCP placed consultation to cover Dementia, Insomnia currently scheduled with Dontae Do (sleep provider), advised additional appointment needs to be scheduled with Sidra Alexander to address Dementia, Dr. De La Cruz scheduled out until Fall. Dementia without behavioral disturbance (HCC) [F03.90] Primary insomnia [F51.01] January advised she is unsure if patient has seen another provider for Neurology in the past, agreeable to schedule with Saray Buckley To address Dx Dementia, appt scheduled in [place] location. Erik Ponce LPN Allergies As of Date: 02/17/2024 Noted Allergy Reaction BACTRIM (SULFAMETHOXAZOLE-TRIMETH* 14 - Other: See Comments Comments: Unknown. CEPHALEXIN 11/22/2014 14 - Other: See Comments Comments: Unknown. CITALOPRAM 01/05/2020 7 - Swelling Comments: Throat swelled CYMBALTA (DULOXETINE) 01/05/2020 14 - Other: See Comments Comments: Made her feel groggy. Date Reviewed: 11/26/2023 Reviewed by: Phyllis Lea, LILLI - Fully Assessed Reason for Visit: Patient Update [1234] Prescriptions as of 02/17/2024 - atorvastatin (LIPITOR) 40 mg tablet Take 1 tablet by mouth daily at bedtime. For cholesterol. - FLUoxetine (PROZAC) 40 mg capsule Take 1 capsule by mouth once daily. - potassium chloride SR (MICRO-K) 10 mEq CR capsule Take 2 capsules by mouth once daily. - QUEtiapine (SEROQUEL) 25 mg tablet take 1/2 tablet by mouth at bedtime - donepezil (ARICEPT) 5 mg tablet Take 1 tablet by mouth daily with breakfast. - gabapentin (NEURONTIN) 300 mg capsule Take 1 capsule by mouth daily at bedtime for 180 days. - mirabegron (MYRBETRIQ) 50 mg Tb24 Take 1 tablet by mouth once daily. - cyanocobalamin (VITAMIN B-12) 500 mcg tablet Take 1 tablet by mouth once daily. - levothyroxine (SYNTHROID) 50 mcg tablet Take 1 tablet by mouth daily before breakfast. Sat-Sat and none on Saturday, Saturday - omeprazole (PRILOSEC) 40 mg capsule Take 1 capsule by mouth two times a day. Take 30-60 minutes before breakfast and dinner on an empty stomach. - WALKER ROLLATOR SEAT WITH 6 WHEELS - RED Any color is fine and with a basket if available. Dx: Z91.81, M54.40, R20.8, M46.062 and R26.81 - cyclobenzaprine (FLEXERIL) 10 mg tablet Take 1 tablet by mouth every 8 hours as needed for muscle spasm (or pain). - wheat dextrin (BENEFIBER HEALTHY SHAPE) 5 gram/7.4 gram powd Take 2 teaspoonsful by mouth once daily. - amino acids (AMINO ACID ORAL) Take 3 g by mouth once daily. Peptide powder - VITAMIN E ACETATE ORAL Take 10 mg by mouth once daily. - ascorbic acid (VITAMIN C ORAL) Take 90 mg by mouth once daily. - aspirin, enteric coated (ADULT LOW DOSE ASPIRIN) 81 mg EC tablet Take 1 tablet by mouth once daily. Facility-Administered Medications as of 02/17/2024 - menthol-cetylpyridinium 1 Lozenge (CEPACOL LOZENGES) Problem List As Of Date 02/17/2024 Noted Resolved Osteoporosis [M81.0] 05/26/2015 Essential hypertension [I10] 2015 Mixed hyperlipidemia [E78.2] 2015 Hypothyroidism (acquired) [E03.9] 2015 Smoker [F17.200] 2015 Pain in joint, multiple sites [M25.50] 12/07/2015 Colon cancer screening [Z12.11] 12/07/2015 09/18/2019 Elevated fasting blood sugar [R73.01] 12/07/2015 09/18/2019 Hematuria [R31.9] 12/14/2015 09/18/2019 Bilateral carotid artery disease (HCC) [I77.9] 12/20/2015 09/18/2019 Decreased sensation of lower extremity [R20.8] 01/04/2016 Spinal stenosis, lumbar region, with neurogenic*01/23/2016 Urgency of urination [R39.15] 06/13/2016 Well adult exam [Z00.00] 12/26/2016 09/18/2019 Chronic bilateral low back pain with sciatica [*12/26/2016 Pain in both hands [M79.641, M79.642] 12/26/2016 09/18/2019 Encounter for screening mammogram for breast ca*12/26/2017 09/18/2019 Medicare annual wellness visit, subsequent [Z00*12/26/2017 Recurrent major depressive disorder, in remissi*07/01/2018 Medication management [Z79.899] 12/31/2018 Bilateral carotid artery stenosis [I65.23] 12/20/2015 Hematuria [R31.9] 12/14/2015 Moderate aortic insufficiency [I35.1] 01/19/2020 Agitation [R45.1] 02/02/2020 Lymphocytic colitis [K52.832] 05/16/2020 Sinus bradycardia [R00.1] 12/21/2020 Protein deficiency (HCC) [E46] 01/24/2021 09/20/2022 Essential tremor [G25.0] 09/18/2021 Living will on file [[id number]] 03/21/2022 Advance directive discussed with patient [Z71.8*03/21/2022 Stage 3a chronic kidney disease (HCC) [N18.31] 09/20/2022 Type 2 diabetes mellitus with stage 3a chronic *09/20/2022 Diabetic eye exam (HCC) [Z01.00, E11.9] 09/24/2022 Dementia witho (more content not included)... Normal [facility] CNPNon 11-29-2023 CNPN Telephone (NAVWST) AVISEDISON ([id number]) 1945 F Date Time Provider Department 11/29/23 KAMILAH NEWMAN During your visit today, we recorded the following information about you: Allergies As of Date: 11/29/2023 Noted Allergy Reaction BACTRIM (SULFAMETHOXAZOLE-TRIMETH* 14 - Other: See Comments Comments: Unknown. CEPHALEXIN 11/22/2014 14 - Other: See Comments Comments: Unknown. CITALOPRAM 01/05/2020 7 - Swelling Comments: Throat swelled CYMBALTA (DULOXETINE) 01/05/2020 14 - Other: See Comments Comments: Made her feel groggy. Date Reviewed: 11/26/2023 Reviewed by: Phyllis Lea RN - Fully Assessed Prescriptions as of 11/29/2023 - gabapentin (NEURONTIN) 300 mg capsule Take 1 capsule by mouth daily at bedtime for 180 days. - mirabegron (MYRBETRIQ) 50 mg Tb24 Take 1 tablet by mouth once daily. - donepezil (ARICEPT) 5 mg tablet Take 1 tablet by mouth daily with breakfast. - cyanocobalamin (VITAMIN B-12) 500 mcg tablet Take 1 tablet by mouth once daily. - levothyroxine (SYNTHROID) 50 mcg tablet Take 1 tablet by mouth daily before breakfast. Sat-Sat and none on Saturday, Saturday - omeprazole (PRILOSEC) 40 mg capsule Take 1 capsule by mouth two times a day. Take 30-60 minutes before breakfast and dinner on an empty stomach. - atorvastatin (LIPITOR) 40 mg tablet Take 1 tablet by mouth daily at bedtime. For cholesterol. - FLUoxetine (PROZAC) 40 mg capsule Take 1 capsule by mouth once daily. - potassium chloride SR (MICRO-K) 10 mEq CR capsule Take 2 capsules by mouth once daily. - WALKER ROLLATOR SEAT WITH 6 WHEELS - RED Any color is fine and with a basket if available. Dx: Z91.81, M54.40, R20.8, M46.062 and R26.81 - QUEtiapine (SEROQUEL) 25 mg tablet Take 0.5 tablets by mouth daily at bedtime. - cyclobenzaprine (FLEXERIL) 10 mg tablet Take 1 tablet by mouth every 8 hours as needed for muscle spasm (or pain). - wheat dextrin (BENEFIBER HEALTHY SHAPE) 5 gram/7.4 gram powd Take 2 teaspoonsful by mouth once daily. - amino acids (AMINO ACID ORAL) Take 3 g by mouth once daily. Peptide powder - VITAMIN E ACETATE ORAL Take 10 mg by mouth once daily. - ascorbic acid (VITAMIN C ORAL) Take 90 mg by mouth once daily. - aspirin, enteric coated (ADULT LOW DOSE ASPIRIN) 81 mg EC tablet Take 1 tablet by mouth once daily. Facility-Administered Medications as of 11/29/2023 - menthol-cetylpyridinium 1 Lozenge (CEPACOL LOZENGES) Problem List As Of Date 11/29/2023 Noted Resolved Osteoporosis [M81.0] 05/26/2015 Essential hypertension [I10] 2015 Mixed hyperlipidemia [E78.2] 2015 Hypothyroidism (acquired) [E03.9] 2015 Smoker [F17.200] 2015 Pain in joint, multiple sites [M25.50] 12/07/2015 Colon cancer screening [Z12.11] 12/07/2015 09/18/2019 Elevated fasting blood sugar [R73.01] 12/07/2015 09/18/2019 Hematuria [R31.9] 12/14/2015 09/18/2019 Bilateral carotid artery disease (HCC) [I77.9] 12/20/2015 09/18/2019 Decreased sensation of lower extremity [R20.8] 01/04/2016 Spinal stenosis, lumbar region, with neurogenic*01/23/2016 Urgency of urination [R39.15] 06/13/2016 Well adult exam [Z00.00] 12/26/2016 09/18/2019 Chronic bilateral low back pain with sciatica [*12/26/2016 Pain in both hands [M79.641, M79.642] 12/26/2016 09/18/2019 Encounter for screening mammogram for breast ca*12/26/2017 09/18/2019 Medicare annual wellness visit, subsequent [Z00*12/26/2017 Recurrent major depressive disorder, in remissi*07/01/2018 Medication management [Z79.899] 12/31/2018 Bilateral carotid artery stenosis [I65.23] 12/20/2015 Hematuria [R31.9] 12/14/2015 Moderate aortic insufficiency [I35.1] 01/19/2020 Agitation [R45.1] 02/02/2020 Lymphocytic colitis [K52.832] 05/16/2020 Sinus bradycardia [R00.1] 12/21/2020 Protein deficiency (HCC) [E46] 01/24/2021 09/20/2022 Essential tremor [G25.0] 09/18/2021 Living will on file [[id number]] 03/21/2022 Advance directive discussed with patient [Z71.8*03/21/2022 Stage 3a chronic kidney disease (HCC) [N18.31] 09/20/2022 Type 2 diabetes mellitus with stage 3a chronic *09/20/2022 Diabetic eye exam (HCC) [Z01.00, E11.9] 09/24/2022 Dementia without behavioral disturbance (HCC) [*12/20/2022 Hypokalemia [E87.6] 03/02/2023 Failure to thrive in adult [R62.7] 03/02/2023 Unsteady gait [R26.81] 03/06/2023 At risk for falling [Z91.81] 04/12/2023 Gastroesophageal reflux disease without esophag*09/25/2023 Primary insomnia [F51.01] 09/25/2023 Encounter Status:Closed by KAMILAH NEWMAN on 11/29/23 [facility] CNOVon 11-26-2023 CNOV Office Visit (UROLWS ) EDISON ALBARRAN ([id number]) 1945 F Date Time Provider Department 11/26/23 1:30 PM COLTEN ORO During your visit today, we recorded the following information about you: Temperature Pulse Blood pressure Weight 97.6 degrees 106/minute 130/68 43.8 kg Height 1.499 m Colten Oro PA-C 11/26/2023 7:17 PM Signed [facility] ESTABLISHED PATIENT CLINIC NOTE Some elements copied from his previous note, which have been updated where appropriate, and all reflect current medical decision making from date of this visit. NAME: Edison Albarran CHIEF COMPLAINT: OAB follow up HISTORY OF PRESENT ILLNESS: Edison lAbarran is a 78 year old female an established patient following up for OAB for annual follow-up The patient reports doing very well on Myrbetriq 50 mg refilled today and she is still doing well overall LUTS: LUTS managed well with Myrbetriq 50 mg Other symptoms: LABS: Hematocrit (%) Date Value 08/06/2023 37.1 03/03/2023 32.8 03/01/2023 34.8 11/30/2022 37.4 07/07/2020 40.4 03/09/2020 37.6 11/04/2019 35.9 06/24/2019 39.3 No results found for: PSA No results found for: TESTOST No results found for: PSA Creatinine Date Value Ref Range Status 08/06/2023 0.99 (H) 0.58 - 0.96 mg/dL Final 03/21/2023 1.00 (H) 0.58 - 0.96 mg/dL Final 03/03/2023 0.76 0.58 - 0.96 mg/dL Final 03/02/2023 0.80 0.58 - 0.96 mg/dL Final MEDICATIONS: donepezil (ARICEPT) 5 mg tabletTake 1 tablet by mouth daily with breakfast.Disp: 90 tabletRfl: 0 cyanocobalamin (VITAMIN B-12) 500 mcg tabletTake 1 tablet by mouth once daily.Disp: 90 tabletRfl: 1 levothyroxine (SYNTHROID) 50 mcg tabletTake 1 tablet by mouth daily before breakfast. Sat-Sat and none on Saturday, SaturdayDisp: 90 tabletRfl: 1 omeprazole (PRILOSEC) 40 mg capsuleTake 1 capsule by mouth two times a day. Take 30-60 minutes before breakfast and dinner on an empty stomach.Disp: 180 capsuleRfl: 3 atorvastatin (LIPITOR) 40 mg tabletTake 1 tablet by mouth daily at bedtime. For cholesterol.Disp: 90 tabletRfl: 1 FLUoxetine (PROZAC) 40 mg capsuleTake 1 capsule by mouth once daily.Disp: 30 capsuleRfl: 5 potassium chloride SR (MICRO-K) 10 mEq CR capsuleTake 2 capsules by mouth once daily.Disp: 60 capsuleRfl: 5 WALKER ROLLATOR SEAT WITH 6 WHEELS - REDAny color is fine and with a basket if available. Dx: Z91.81, M54.40, R20.8, M46.062 and R26.81Disp: 1 EachRfl: 0 gabapentin (NEURONTIN) 300 mg capsuleTake 1 capsule by mouth daily at bedtime for 180 days.Disp: 90 capsuleRfl: 1 QUEtiapine (SEROQUEL) 25 mg tabletTake 0.5 tablets by mouth daily at bedtime.Disp: 30 tabletRfl: 3 gabapentin (NEURONTIN) 300 mg capsuleTake 300 mg by mouth daily at bedtime.Disp: Rfl: mirabegron (MYRBETRIQ) 50 mg [id number] 1 tablet by mouth once daily.Disp: 90 tabletRfl: 3 cyclobenzaprine (FLEXERIL) 10 mg tabletTake 1 tablet by mouth every 8 hours as needed for muscle spasm (or pain).Disp: 30 tabletRfl: 0 wheat dextrin (BENEFIBER HEALTHY SHAPE) 5 gram/7.4 gram powdTake 2 teaspoonsful by mouth once daily.Disp: Rfl: amino acids (AMINO ACID ORAL)Take 3 g by mouth once daily. Peptide powder Disp: Rfl: VITAMIN E ACETATE ORALTake 10 mg by mouth once daily. Disp: Rfl: ascorbic acid (VITAMIN C ORAL)Take 90 mg by mouth once daily. Disp: Rfl: aspirin, enteric coated (ADULT LOW DOSE ASPIRIN) 81 mg EC tabletTake 1 tablet by mouth once daily.Disp: Rfl: 0 PAST MEDICAL HISTORY: PAST MEDICAL HISTORY Diagnosis Date Advance directive discussed with patient 03/21/202203/2022 Agitation 02/02/2020 Aneurysm of right subclavian artery (HCC) At risk for falling 04/12/2023 Bilateral carotid artery disease (HCC) 12/20/2015 US 12/2015: 20-40% on Rt and 40-60% on left. US 01/2017 unchanged. Chronic bilateral low back pain with sciatica 12/26/2016 Constipation 07/09/2018 after starting lipitor Decreased sensation of lower extremity 01/04/2016 Dementia without behavioral disturbance (HCC) 12/20/2022 Diabetic eye exam (HCC) 09/24/2022 Last done 08/08/22 Essential hypertension 2015 Essential tremor 09/18/2021 Ex-smoker 2015 1/2-1 PPD since early , quit January 2018 Failure to thrive in adult 03/02/2023 Gastroesophageal reflux disease without esophagitis 09/25/2023 Hematuria 12/14/2015 Urology w/u neg. Hypothyroidism (acquired) 2015 Living will on file 03/21/2022 DPA; Casey (son) Lymphocytic colitis 05/16/2020 Possibly Zoloft related. Mediastinal lymphadenopathy 08/04/2018 Prominent Mediastinal lymphadenopathy noted on CT 08/01/18. CT 01/05/2019 no mediastinal lymphadenopathy Mixed hyperlipidemia 2015 Moderate aortic insufficiency 01/19/[address] Cordoba Osteoporosis 05/26/2015 Overactive bladder Pain in b (more content not included)... Normal [facility] EDISON ALBARRAN ([id number]) 1945 F Date Time Provider Department 11/26/23 11:40 AM MAYANK QUINTANILLA During your visit today, we recorded the following information about you: Pulse Respiration Blood pressure Weight 79/minute 16/minute 144/70 43.5 kg Mayank Quintanilla APRN.CLIENT SERVICES REPRESENTATIVE 11/26/2023 12:25 PM Signed Chief Complaint Patient presents with: ER F/U HPI Edisonpankaj Albarran is a 78 year old female who presents here today for ER Follow Up. Chest pain since late October 2023 when she fell at home in her kitchen using a stool. She was avoiding falling into a bread machine. Was evaluated in [place] ED 11/09. Xrays were negative at that time. Today, patient is reporting 8/10 bilateral rib pain that has not improved since being in ED. Taking flexeril and tylenol with minimal relief. Endorses mild shortness of breath, unable to take deep breaths related to the rib pain. Difficulty getting dressed and having to only wear stretchy clothes. Patient lives alone since son . No family/friends in area. Granddaughter in [place] is supposed to be paying bills but has no way of knowing if bills are paid. Patient reports she still has electric and water but has no clue how long they will be on. Has last talked to her granddaughter a few weeks ago. Appears to have Zack Juan RN from [facility]. Past medical history, appointments, medications, allergies reviewed. Previous Medical History PAST MEDICAL HISTORY Diagnosis Date Advance directive discussed with patient 03/21/202203/2022 Agitation 02/02/2020 Aneurysm of right subclavian artery (HCC) At risk for falling 04/12/2023 Bilateral carotid artery disease (HCC) 12/20/2015 US 12/2015: 20-40% on Rt and 40-60% on left. US 01/2017 unchanged. Chronic bilateral low back pain with sciatica 12/26/2016 Constipation 07/09/2018 after starting lipitor Decreased sensation of lower extremity 01/04/2016 Dementia without behavioral disturbance (HCC) 12/20/2022 Diabetic eye exam (HCC) 09/24/2022 Last done 08/08/22 Essential hypertension 2015 Essential tremor 09/18/2021 Ex-smoker 2015 1/2-1 PPD since early 50s, quit January 2018 Failure to thrive in adult 03/02/2023 Gastroesophageal reflux disease without esophagitis 09/25/2023 Hematuria 12/14/2015 Urology w/u neg. Hypothyroidism (acquired) 2015 Living will on file 03/21/2022 DPA; Casey (son) Lymphocytic colitis 05/16/2020 Possibly Zoloft related. Mediastinal lymphadenopathy 08/04/2018 Prominent Mediastinal lymphadenopathy noted on CT 08/01/18. CT 01/05/2019 no mediastinal lymphadenopathy Mixed hyperlipidemia 2015 Moderate aortic insufficiency 01/19/[address] Cordoba Osteoporosis 05/26/2015 Overactive bladder Pain in both hands 12/26/2016 Pain in joint, multiple sites 12/07/2015 On neurontin Primary insomnia 09/25/2023 Seeing Neuro Recurrent major depressive disorder, in remission ([facility]) 07/01/2018 Spinal stenosis, lumbar region, with neurogenic claudication 01/23/2016 Stage 3a chronic kidney disease ([facility]) 09/20/2022 Type 2 diabetes mellitus with stage 3a chronic kidney disease ([facility]) 09/20/2022 Type 2 diabetes mellitus without complication, without long-term current use of insulin ([facility]) 12/07/2015 Unsteady gait 03/06/2023 Urgency of urination 06/13/2016 Previous Surgical History PAST SURGICAL HISTORY Procedure Laterality Date 2D ECHO (EXEP) 09/2020 EF=64%, Mild Noe dysf and La enlargment, 2+ AR CARPAL TUNNEL RIGHT WRIST COLONOSCOPY 2010 repeat 10 yrs COLONOSCOPY FLX DX W/COLLJ SPEC WHEN PFRMD 04/21/2020 Colonoscopy CORRECTION OF BUNION Left ESOPHAGOGASTRODUODENOSCOPY TRANSORAL DIAGNOSTIC 04/21/2020 EGD FECAL OCCULT BLOOD TEST 01/01/2018 negative HYSTERECTOMY HX 1970 one ovary removed LEXISCAN STRESS TEST 11/21/2020 negative PAST SURGICAL HISTORY OF 1971 appendectomy PAST SURGICAL HISTORY OF 1987 breast lump, benign STRESS TEST 07/09/2016 WNL TUMOR REMOVAL (SPECIFY LOCATION) HX 2001 stomach Family History FAMILY HISTORY Problem Relation Age of Onset Breast Cancer Mother over 50 Hypertension Mother Lipids Mother Osteoporosis Mother Thyroid Mother Cancer Father stomach Cancer Brother lung Alzheimer's Disease Brother dementia Diabetes Brother Patient Allergies ALLERGIES Allergen Reactions Bactrim [Sulfametho* Other: See Comments Unknown. Cephalexin Other: See Comments Unknown. Citalopram Swelling Throat swelled Cymbalta [Duloxetin* Other: See Comments Made her feel groggy. Current Medications Current Outpatient Medications on File Prior to Visit Medication Sig donepezil (ARICEPT) 5 mg tablet Take 1 tablet by mouth daily with breakfast. cyanocobalamin (VITAMIN B-12) 500 mcg tablet Pravin (more content not included)... Normal [facility] CNPDanni 11-26-2023 [facility] Tele[facility] (NAVWST) EDISON ALBARRAN ([id number]) 1945 F Date Time Provider Department 11/26/23 KAMILAH NEWMAN During your visit today, we recorded the following information about you: Kamilah Newman, LEARNING DESIGNER 11/26/2023 4:33 PM Signed Sw spoke with patient and she reports that she is in the process of receiving assistance through [facility]. Just not sure as to where she is at with that process. Patient also notes that her grand daughter Danna has tried to help her with bill pay. Patient reports that she is back to paying her own bills. Patient does not current falls and notes that she had 3 falls in one day recently. Patient reports that a holiness that she has been affiliated in the past helped her with a railing to go down her hallway to help with navigating safely down the garner. Patient also notes that it is okay for SW to speak with her Grand Daughter Danna in regards to being able to reach out to this Sw for any concerns regarding patient assistance needs. Sw left message for Zack Juan [facility] to call Sw back to update SW on status of patient ability to receive assistive services from [facility]. Kamilah Newman, LEARNING DESIGNER 11/27/2023 1:52 PM Signed Hay[facility] In message Zack noted that he is having their navigator help assist patient with signing up for Medicaid and then patient will be placed on Passport program. Kamilah Newman, LEARNING DESIGNER 11/29/2023 4:01 PM Signed Hayley spoke with grand daughter Danna. January notes that patient is still needing to submit copy of life insurance policy and last 2 pay stubs. January notes that she asked patient where this information is and patient said I think it fell behind the dresser. Hayley notes that she can speak with [employer] and see if the navigator he mentioned through their agency was helping with this information. The other thought this Sw has would be checking with [facility] Old[facility] Adult Shift Supervisor [employer] to see about helping patient with this. Danna also reports that she was able to have electric bill set up to be paid electronically, but not her other bills yet. Danna notes that she is working on seeing about a family member to help patient with bill pay services. Danna has direct number. Hayley will speak with [employer] also in regards to forms needed to complete Medicaid application to see if eligible for Passport. Kamilah Newman, MASHA 11/29/2023 4:08 PM Signed Hayley spoke with [employer] and he reports that [employer] is working to help patient identify and locate documentation needed for Medicaid-Passport. Hayley noted that Danna is concerned about further needed documentation ie. Pay stubs and life insurance policy. Zack notes that Gauri also has the option of going in to patient home to assist with documentation needs. Zack reports that he will keep checking on patient Medicaid status and see what is going on with status next week. Hayley thanked Zack for his help. Allergies As of Date: 11/26/2023 Noted Allergy Reaction BACTRIM (SULFAMETHOXAZOLE-TRIMETH* 14 - Other: See Comments Comments: Unknown. CEPHALEXIN 11/22/2014 14 - Other: See Comments Comments: Unknown. CITALOPRAM 01/05/2020 7 - Swelling Comments: Throat swelled CYMBALTA (DULOXETINE) 01/05/2020 14 - Other: See Comments Comments: Made her feel groggy. Date Reviewed: 11/26/2023 Reviewed by: Phyllis Lea RN - Fully Assessed Reason for Visit: Patient Update [1234] Prescriptions as of 11/29/2023 - gabapentin (NEURONTIN) 300 mg capsule Take 1 capsule by mouth daily at bedtime for 180 days. - mirabegron (MYRBETRIQ) 50 mg Tb24 Take 1 tablet by mouth once daily. - donepezil (ARICEPT) 5 mg tablet Take 1 tablet by mouth daily with breakfast. - cyanocobalamin (VITAMIN B-12) 500 mcg tablet Take 1 tablet by mouth once daily. - levothyroxine (SYNTHROID) 50 mcg tablet Take 1 tablet by mouth daily before breakfast. Mon-Fri and none on Saturday, Saturday - omeprazole (PRILOSEC) 40 mg capsule Take 1 capsule by mouth two times a day. Take 30-60 minutes before breakfast and dinner on an empty stomach. - atorvastatin (LIPITOR) 40 mg tablet Take 1 tablet by mouth daily at bedtime. For cholesterol. - FLUoxetine (PROZAC) 40 mg capsule Take 1 capsule by mouth once daily. - potassium chloride SR (MICRO-K) 10 mEq CR capsule Take 2 capsules by mouth once daily. - WALKER ROLLATOR SEAT WITH 6 WHEELS - RED Any color is fine and with a basket if available. Dx: Z91.81, M54.40, R20.8, M46.062 and R26.81 - QUEtiapine (SEROQUEL) 25 mg tablet Take 0.5 tablets by mouth daily at bedtime. - cyclobenzaprine (FLEXERIL) 10 mg tablet Take 1 tablet by mouth every 8 hours as needed for muscle spasm (or pain). - wheat dextrin (BENEFIBER HEALTHY SHAPE) 5 gram/7.4 gram powd Take 2 teaspoonsful by kely (more content not included)... Normal [facility] Telephone (PSYLME) EDISON ALBARRAN ([id number]) 1945 F Date Time Provider Department 11/26/23 YELENA EVANS PSYLME During your visit today, we recorded the following information about you: Yelena Evans [facility] 11/26/2023 4:16 PM Signed Behavioral Health Social Work Progress Note Patient identified for [facility] from: PCP Reason for referral: [facility] Assessment [facility] encounter type: Telephone Encounter Attempts to Outreach: 1 attempt Referral made: Other Final Disposition: Patient declined Patient Discharged?: Yes Patient reported that caregiver was able to meet their needs today?: N/A therapist spoke with patient. She states that she is not interested in services at this time. None of that will help my dementia. Patient states that she was appreciative of call. Yelena Nathan, [facility] November 26, 2023 Allergies As of Date: 11/26/2023 Noted Allergy Reaction BACTRIM (SULFAMETHOXAZOLE-TRIMETH* 14 - Other: See Comments Comments: Unknown. CEPHALEXIN 11/22/2014 14 - Other: See Comments Comments: Unknown. CITALOPRAM 01/05/2020 7 - Swelling Comments: Throat swelled CYMBALTA (DULOXETINE) 01/05/2020 14 - Other: See Comments Comments: Made her feel groggy. Date Reviewed: 11/26/2023 Reviewed by: Phyllis Lea RN - Fully Assessed Reason for Visit: consult [Other] Prescriptions as of 11/26/2023 - mirabegron (MYRBETRIQ) 50 mg Tb24 Take 1 tablet by mouth once daily. - donepezil (ARICEPT) 5 mg tablet Take 1 tablet by mouth daily with breakfast. - cyanocobalamin (VITAMIN B-12) 500 mcg tablet Take 1 tablet by mouth once daily. - levothyroxine (SYNTHROID) 50 mcg tablet Take 1 tablet by mouth daily before breakfast. Mon-Sat and none on Saturday, Saturday - omeprazole (PRILOSEC) 40 mg capsule Take 1 capsule by mouth two times a day. Take 30-60 minutes before breakfast and dinner on an empty stomach. - atorvastatin (LIPITOR) 40 mg tablet Take 1 tablet by mouth daily at bedtime. For cholesterol. - FLUoxetine (PROZAC) 40 mg capsule Take 1 capsule by mouth once daily. - potassium chloride SR (MICRO-K) 10 mEq CR capsule Take 2 capsules by mouth once daily. - WALKER ROLLATOR SEAT WITH 6 WHEELS - RED Any color is fine and with a basket if available. Dx: Z91.81, M54.40, R20.8, M46.062 and R26.81 - gabapentin (NEURONTIN) 300 mg capsule Take 1 capsule by mouth daily at bedtime for 180 days. - QUEtiapine (SEROQUEL) 25 mg tablet Take 0.5 tablets by mouth daily at bedtime. - gabapentin (NEURONTIN) 300 mg capsule Take 300 mg by mouth daily at bedtime. - cyclobenzaprine (FLEXERIL) 10 mg tablet Take 1 tablet by mouth every 8 hours as needed for muscle spasm (or pain). - wheat dextrin (BENEFIBER HEALTHY SHAPE) 5 gram/7.4 gram powd Take 2 teaspoonsful by mouth once daily. - amino acids (AMINO ACID ORAL) Take 3 g by mouth once daily. Peptide powder - VITAMIN E ACETATE ORAL Take 10 mg by mouth once daily. - ascorbic acid (VITAMIN C ORAL) Take 90 mg by mouth once daily. - aspirin, enteric coated (ADULT LOW DOSE ASPIRIN) 81 mg EC tablet Take 1 tablet by mouth once daily. Facility-Administered Medications as of 11/26/2023 - menthol-cetylpyridinium 1 Lozenge (CEPACOL LOZENGES) Problem List As Of Date 11/26/2023 Noted Resolved Osteoporosis [M81.0] 05/26/2015 Essential hypertension [I10] 2015 Mixed hyperlipidemia [E78.2] 2015 Hypothyroidism (acquired) [E03.9] 2015 Smoker [F17.200] 2015 Pain in joint, multiple sites [M25.50] 12/07/2015 Colon cancer screening [Z12.11] 12/07/2015 09/18/2019 Elevated fasting blood sugar [R73.01] 12/07/2015 09/18/2019 Hematuria [R31.9] 12/14/2015 09/18/2019 Bilateral carotid artery disease (HCC) [I77.9] 12/20/2015 09/18/2019 Decreased sensation of lower extremity [R20.8] 01/04/2016 Spinal stenosis, lumbar region, with neurogenic*01/23/2016 Urgency of urination [R39.15] 06/13/2016 Well adult exam [Z00.00] 12/26/2016 09/18/2019 Chronic bilateral low back pain with sciatica [*12/26/2016 Pain in both hands [M79.641, M79.642] 12/26/2016 09/18/2019 Encounter for screening mammogram for breast ca*12/26/2017 09/18/2019 Medicare annual wellness visit, subsequent [Z00*12/26/2017 Recurrent major depressive disorder, in remissi*07/01/2018 Medication management [Z79.899] 12/31/2018 Bilateral carotid artery stenosis [I65.23] 12/20/2015 Hematuria [R31.9] 12/14/2015 Moderate aortic insufficiency [I35.1] 01/19/2020 Agitation [R45.1] 02/02/2020 Lymphocytic colitis [K52.832] 05/16/2020 Sinus bradycardia [R00.1] 12/21/2020 Protein deficiency (HCC) [E46] 01/24/2021 09/20/2022 Essential tremor [G25.0] 09/18/2021 Living will on file [[id number]] 03/21/2022 Advance directive discussed with patient [Z71.8*03/21/2022 Stage 3a chronic kidney disease (HCC) [N18.31] 09/20/2022 Type 2 diabetes mellitus with stage 3a chr (more content not included)... Normal [facility] UA DIP, URINE (POC)on 2023 BILIRUBIN UA (POCT) Negative Negative [facility] CLARITY UA (POCT) Clear [facility] COLOR UA (POCT) Yellow [facility] GLUCOSE UA (POCT) Negative Negative mg/dL [facility] Hemoglobin Ql (U) Trace-intact Abnormal Negative [facility] KETONE UA (POCT) Negative Negative mg/dL [facility] LEUKOCYTES UA (POCT) Negative Negative [facility] NITRITE UA (POCT) Negative Negative [facility] PH UA (POCT) 5.5 4.5 - 8.0 [facility] Protein Ql (U) Negative Negative mg/dL [facility] SPECIFIC GRAVITY UA (POCT) 1.015 1.005 - 1.030 [facility] UROBILINOGEN UA (POCT) 2.0 E.U./dL Abnormal Normal E.U./dL [facility] CNPNon 11-25-2023 CNPN Telephone (FAMPWS) EDISON ALBARRAN ([id number]) 1945 F Date Time Provider Department 11/25/23 KURT SARAVIA During your visit today, we recorded the following information about you: Danielle Law RN 11/25/2023 2:44 PM Signed Pt calling in as she thinks someone called her to make her an appointment. Last note seen is a [place] msg asking pt to call for a ER follow up appt. Appt given with Mayank Jesús for tomorrow at 1140. Pt was in [place] ER on 11/09 for chest pain. Pt states her chest is still sore. She can't wear a tight bra because it hurts. During conversation, pt was laughing inappropriately and kept saying she was going nuts. Asked pt if she had any family support. She states no. States her son recently and he was the only family she has. Emergency contact listed is her granddaughter who lives in [place]. Pt states she has no friends or anyone that can help her. States she is currently still driving because she has no one else. States she has lived here for 30 years but keeps to herself because she is going nuts and doesn't want people to see her like that. She states she is supposed to be getting some aids to come in and help her but she hasn't heard from anyone. Pt unsure who was doing that for her. Asked pt if maybe we could get our delinquency prevention social worker involved to see if we can find her some help. Allergies As of Date: 11/25/2023 Noted Allergy Reaction BACTRIM (SULFAMETHOXAZOLE-TRIMETH* 14 - Other: See Comments Comments: Unknown. CEPHALEXIN 11/22/2014 14 - Other: See Comments Comments: Unknown. CITALOPRAM 01/05/2020 7 - Swelling Comments: Throat swelled CYMBALTA (DULOXETINE) 01/05/2020 14 - Other: See Comments Comments: Made her feel groggy. Date Reviewed: 11/09/2023 Reviewed by: Tosha Thibodeaux RN - Fully Assessed Reason for Visit: Appointment [186] Prescriptions as of 11/27/2023 - mirabegron (MYRBETRIQ) 50 mg Tb24 Take 1 tablet by mouth once daily. - donepezil (ARICEPT) 5 mg tablet Take 1 tablet by mouth daily with breakfast. - cyanocobalamin (VITAMIN B-12) 500 mcg tablet Take 1 tablet by mouth once daily. - levothyroxine (SYNTHROID) 50 mcg tablet Take 1 tablet by mouth daily before breakfast. Sat-Sat and none on Saturday, Saturday - omeprazole (PRILOSEC) 40 mg capsule Take 1 capsule by mouth two times a day. Take 30-60 minutes before breakfast and dinner on an empty stomach. - atorvastatin (LIPITOR) 40 mg tablet Take 1 tablet by mouth daily at bedtime. For cholesterol. - FLUoxetine (PROZAC) 40 mg capsule Take 1 capsule by mouth once daily. - potassium chloride SR (MICRO-K) 10 mEq CR capsule Take 2 capsules by mouth once daily. - WALKER ROLLATOR SEAT WITH 6 WHEELS - RED Any color is fine and with a basket if available. Dx: Z91.81, M54.40, R20.8, M46.062 and R26.81 - gabapentin (NEURONTIN) 300 mg capsule Take 1 capsule by mouth daily at bedtime for 180 days. - QUEtiapine (SEROQUEL) 25 mg tablet Take 0.5 tablets by mouth daily at bedtime. - gabapentin (NEURONTIN) 300 mg capsule Take 300 mg by mouth daily at bedtime. - cyclobenzaprine (FLEXERIL) 10 mg tablet Take 1 tablet by mouth every 8 hours as needed for muscle spasm (or pain). - wheat dextrin (BENEFIBER HEALTHY SHAPE) 5 gram/7.4 gram powd Take 2 teaspoonsful by mouth once daily. - amino acids (AMINO ACID ORAL) Take 3 g by mouth once daily. Peptide powder - VITAMIN E ACETATE ORAL Take 10 mg by mouth once daily. - ascorbic acid (VITAMIN C ORAL) Take 90 mg by mouth once daily. - aspirin, enteric coated (ADULT LOW DOSE ASPIRIN) 81 mg EC tablet Take 1 tablet by mouth once daily. Facility-Administered Medications as of 11/27/2023 - menthol-cetylpyridinium 1 Lozenge (CEPACOL LOZENGES) Problem List As Of Date 11/25/2023 Noted Resolved Osteoporosis [M81.0] 05/26/2015 Essential hypertension [I10] 2015 Mixed hyperlipidemia [E78.2] 2015 Hypothyroidism (acquired) [E03.9] 2015 Smoker [F17.200] 2015 Pain in joint, multiple sites [M25.50] 12/07/2015 Colon cancer screening [Z12.11] 12/07/2015 09/18/2019 Elevated fasting blood sugar [R73.01] 12/07/2015 09/18/2019 Hematuria [R31.9] 12/14/2015 09/18/2019 Bilateral carotid artery disease (HCC) [I77.9] 12/20/2015 09/18/2019 Decreased sensation of lower extremity [R20.8] 01/04/2016 Spinal stenosis, lumbar region, with neurogenic*01/23/2016 Urgency of urination [R39.15] 06/13/2016 Well adult exam [Z00.00] 12/26/2016 09/18/2019 Chronic bilateral low back pain with sciatica [*12/26/2016 Pain in both hands [M79.641, M79.642] 12/26/2016 09/18/2019 Encounter for screening mammogram for breast ca*12/26/2017 09/18/2019 Medicare annual wellness visit, subsequent [Z00*12/26/2017 Recurrent major depressive disorder, in remissi*07/01/2018 Medication management [Z79.899] 12/31/2018 Bilateral carotid artery s (more content not included)... Normal [facility] ECG COMPLETEon 11-09-2023 ECG COMPLETE Ventricular Rate : 6 0 BPM Atrial Rate : 60 BPM P-R Interval : 176 ms QRS Duration : 80 ms Q-T Interval : 476 ms QTC Calculation(Bazett) : 476 ms Calculated P [place] : 66 degrees Calculated R [place] : 70 degrees Calculated T [place] : 81 degrees NORMAL SINUS RHYTHM NONSPECIFIC ST ABNORMALITY ABNORMAL ECG WHEN COMPARED WITH ECG OF 01-MAR-2023 21:54, NONSPECIFIC T WAVE ABNORMALITY NO LONGER EVIDENT IN INFERIOR LEADS T WAVE INVERSION NO LONGER EVIDENT IN ANTERIOR LEADS QT HAS LENGTHENED Confirmed by MD MARK, TOYA ([id number]) on 11/11/2023 9:48:47 PM NAME : EDISON ALBARRAN PID : [id number] : 1945 Gender : Female Race : ORD : [id number] Procedure Date : Nov 09 2023 09:36:57 Edit Date : Nov 11 2023 21:48:48 Diagnosis: NORMAL SINUS RHYTHM NONSPECIFIC ST ABNORMALITY ABNORMAL ECG WHEN COMPARED WITH ECG OF 01-MAR-2023 21:54, NONSPECIFIC T WAVE ABNORMALITY NO LONGER EVIDENT IN INFERIOR LEADS T WAVE INVERSION NO LONGER EVIDENT IN ANTERIOR LEADS QT HAS LENGTHENED Confirmed by MD FLORES VINAYAK ([id number]) on 11/11/2023 9:48:47 PM Test Reason : Chest Pain Location : 150 : [facility] ED Overread By : MD FLORES VINAYAK Edited By : MD FLORES VINAYAK Referred By : , Acquired by : SONIA SALMERON [facility] ED NOTEon 11-09-2023 ED NOTE HNO ID: [id number] Author: TOSHA THIBODEAUX RN Service: Nursing Author Type: Registered Nurse Type: ED Notes Filed: 11/09/2023 09:54 Note Text: Patient informed: the name of medication, why we are giving it, possible side effects, what they may expect to feel, and was offered a chance to ask questions, prior to the administration of Tylenol [facility] ED NOTE HNO ID: [id number] Author: TOSHA THIBODEAUX RN Service: Nursing Author Type: Registered Nurse Type: ED Notes Filed: 11/09/2023 09:30 Note Text: Pt arrives with report of chest pain starting last evening after bending over. Pt also reports I broke a rib about a week ago when I was reaching into my washer. Pt was not evaluated for this complaint. Pt ambulatory to ED#6, placed on quality assurance monitor chassis, paged for EKG [facility] ED PROV NOTEon 11-09-2023 ED PROV NOTE HNO ID: [id number] Author: LARRY GREEN MD Service: Emergency Medicine Author Type: Physician Type: ED Provider Notes Filed: 11/09/2023 18:14 Note Text: ED Provider Note Patient Name: Edison Albarran : 1945 SERVICE DATE: 11/09/23 History Patient presents with: Chest Pain Patient presents emergency room with chest pain and injury. Approximate 1 week ago, patient fell into her washer into the left side of her chest, she states she broke her rib, however she did not see anybody. Patient has not taken pain medications that. Last night, patient was reaching into the back comfort, she fell again into her chest injuring both of her ribs. Patient has not taken anything for pain. She notes pain is worse with movement, coughing, deep breathing. There is no exertional symptoms and no leg swelling Chest Pain Pain location: L lateral chest and R lateral chest Pain quality: dull Pain severity: Mild Onset quality: Sudden Duration: 1 day Timing: Constant Chronicity: New Context: breathing, movement and trauma Relieved by: Nothing Worsened by: Deep breathing, certain positions, coughing and movement Ineffective treatments: None tried Associated symptoms: no fever, no nausea, no shortness of breath and no vomiting PAST MEDICAL HISTORY Diagnosis Date - Advance directive discussed with patient 03/21/202203/2022 - Agitation 02/02/2020 - Aneurysm of right subclavian artery (HCC) - At risk for falling 04/12/2023 - Bilateral carotid artery disease (HCC) 12/20/2015 US 12/2015: 20-40% on Rt and 40-60% on left. US 01/2017 unchanged. - Chronic bilateral low back pain with sciatica 12/26/2016 - Constipation 07/09/2018 after starting lipitor - Decreased sensation of lower extremity 01/04/2016 - Dementia without behavioral disturbance (HCC) 12/20/2022 - Diabetic eye exam ([facility]) 09/24/2022 Last done 08/08/22 - Essential hypertension 2015 - Essential tremor 09/18/2021 - Ex-smoker 08/19/201510/08-1 PPD since early 50s, quit January 2018 - Failure to thrive in adult 03/02/2023 - Gastroesophageal reflux disease without esophagitis 09/25/2023 - Hematuria 12/14/2015 Urology w/u neg. - Hypothyroidism (acquired) 2015 - Living will on file 03/21/2022 DPAJim Peña (son) - Lymphocytic colitis 05/16/2020 Possibly Zoloft related. - Mediastinal lymphadenopathy 08/04/2018 Prominent Mediastinal lymphadenopathy noted on CT 08/01/18. CT 01/05/2019 no mediastinal lymphadenopathy - Mixed hyperlipidemia 2015 - Moderate aortic insufficiency 01/19/[address] Cordoba - Osteoporosis 05/26/2015 - Pain in both hands 12/26/2016 - Pain in joint, multiple sites 12/07/2015 On neurontin - Primary insomnia 09/25/2023 Seeing Neuro - Recurrent major depressive disorder, in remission ([facility]) 07/01/2018 - Spinal stenosis, lumbar region, with neurogenic claudication 01/23/2016 - Stage 3a chronic kidney disease ([facility]) 09/20/2022 - Type 2 diabetes mellitus with stage 3a chronic kidney disease ([facility]) 09/20/2022 - Type 2 diabetes mellitus without complication, without long-term current use of insulin ([facility]) 12/07/2015 - Unsteady gait 03/06/2023 - Urgency of urination 06/13/2016 PAST SURGICAL HISTORY Procedure Laterality Date - 2D ECHO (EXEP) 09/2020 EF=64%, Mild Noe dysf and La enlargment, 2+ AR - CARPAL TUNNEL RIGHT WRIST - COLONOSCOPY 2010 repeat 10 yrs - COLONOSCOPY FLX DX W/COLLJ SPEC WHEN PFRMD 04/21/2020 Colonoscopy - CORRECTION OF BUNION Left - ESOPHAGOGASTRODUODENOSCOPY TRANSORAL DIAGNOSTIC 04/21/2020 EGD - FECAL OCCULT BLOOD TEST 01/01/2018 negative - HYSTERECTOMY HX 1970 one ovary removed - LEXISCAN STRESS TEST 11/21/2020 negative - PAST SURGICAL HISTORY OF 1971 appendectomy - PAST SURGICAL HISTORY OF 1987 breast lump, benign - STRESS TEST 07/09/2016 WNL - TUMOR REMOVAL (SPECIFY LOCATION) HX 2001 stomach FAMILY HISTORY Problem Relation Age of Onset - Breast Cancer Mother over 50 - Hypertension Mother - Lipids Mother - Osteoporosis Mother - Thyroid Mother - Cancer Father stomach - Cancer Brother lung - Alzheimer's Disease Brother dementia - Diabetes Brother Social History Tobacco Use - Smoking status: Some Days Packs/day: .5 Types: Cigarettes - Smokeless tobacco: Never - Tobacco comments: Roughly one pack per week Vaping Use - Vaping Use: Never used Substance and Sexual Activity - Alcohol use: Not Currently - Drug use: Never - Sexual activity: Not Currently ALLERGIES Allergen Reactions - Bactrim [Sulfametho* Other: See Comments Unknown. - Cephalexin Other: See Comments Unknown. - Citalopram Swelling Throat swelled - Cymbalta [Duloxetin* Other: See Comments Made her feel groggy. Review of Systems Constitutional: Negative for fever. Respiratory: Negative for shortness of breath. Cardiovascular: Positive for chest pain. Gastrointestinal: Nega (more content not included)... [facility] XR RIBS 4V FLETCHER+UPPER/LOWER C HESTon 02-03-2024 XR RIBS 4V FLETCHER+UPPER/LOWER CHEST * * *Final Report* * * DATE OF EXAM: Nov 09 2023 10:28AM LDX [id number] - XR RIBS 4V FLETCHER+UPPER/LOWER CHEST / PROCEDURE REASON: Trauma * * * * Physician Interpretation * * * * EXAMINATION: XR RIBS 4V FLETCHER+UPPER/LOWER CHEST HISTORY: PT WITH BILT LOWER RIB PAIN, UNDER BREASTS Trauma . TECHNIQUE: XR RIBS 4V FLETCHER+UPPER/LOWER CHEST Laterality: BILATERAL Number of different views (projections): 9 M: XB_1 COMPARISON: RESULT: Lungs appear clear and well expanded. No evidence of pneumothorax. There is no evidence of a rib fracture. No other significant abnormality. IMPRESSION: Unremarkable exam. Monogram Maker: RITCHIE Transcribe Date/Time: Nov 09 2023 10:56A Dictated by : CASEY WILLIAM MD This examination was interpreted and the report reviewed and electronically signed by: CASEY WILLIAM MD on Nov 09 2023 10:58AM EST [id number] [facility] CNPNon 10-19-2023 [facility] EDISON ALBARRAN ([id number]) 1945 F Date Time Provider Department 10/19/23 [facility] During your visit today, we recorded the following information about you: Kurt Saravia MD 10/19/2023 11:44 AM Signed Let patient know US of neck arteries was stable. No changes needed. Brenda Sanabria MA 10/21/2023 8:24 AM Signed Left message for patient to contact office. JANAE Jimenez Sherrie, RN 10/21/2023 2:57 PM Signed Patient returned call and given provider's message below and patient verbalized understanding. Regina Lowery RN Allergies As of Date: 10/19/2023 Noted Allergy Reaction BACTRIM (SULFAMETHOXAZOLE-TRIMETH* 14 - Other: See Comments Comments: Unknown. CEPHALEXIN 11/22/2014 14 - Other: See Comments Comments: Unknown. CITALOPRAM 01/05/2020 7 - Swelling Comments: Throat swelled CYMBALTA (DULOXETINE) 01/05/2020 14 - Other: See Comments Comments: Made her feel groggy. Date Reviewed: 09/26/2023 Reviewed by: Kurt Saravia MD - Fully Assessed Reason for Visit: Results [95] Visit Diagnosis:Bilateral carotid artery stenosis [I65.23] Prescriptions as of 10/21/2023 - donepezil (ARICEPT) 5 mg tablet Take 1 tablet by mouth daily with breakfast. - cyanocobalamin (VITAMIN B-12) 500 mcg tablet Take 1 tablet by mouth once daily. - levothyroxine (SYNTHROID) 50 mcg tablet Take 1 tablet by mouth daily before breakfast. Sat-Sat and none on Saturday, Saturday - omeprazole (PRILOSEC) 40 mg capsule Take 1 capsule by mouth two times a day. Take 30-60 minutes before breakfast and dinner on an empty stomach. - atorvastatin (LIPITOR) 40 mg tablet Take 1 tablet by mouth daily at bedtime. For cholesterol. - FLUoxetine (PROZAC) 40 mg capsule Take 1 capsule by mouth once daily. - potassium chloride SR (MICRO-K) 10 mEq CR capsule Take 2 capsules by mouth once daily. - WALKER ROLLATOR SEAT WITH 6 WHEELS - RED Any color is fine and with a basket if available. Dx: Z91.81, M54.40, R20.8, M46.062 and R26.81 - gabapentin (NEURONTIN) 300 mg capsule Take 1 capsule by mouth daily at bedtime for 180 days. - QUEtiapine (SEROQUEL) 25 mg tablet Take 0.5 tablets by mouth daily at bedtime. - gabapentin (NEURONTIN) 300 mg capsule Take 300 mg by mouth daily at bedtime. - mirabegron (MYRBETRIQ) 50 mg Tb24 Take 1 tablet by mouth once daily. - cyclobenzaprine (FLEXERIL) 10 mg tablet Take 1 tablet by mouth every 8 hours as needed for muscle spasm (or pain). - wheat dextrin (BENEFIBER HEALTHY SHAPE) 5 gram/7.4 gram powd Take 2 teaspoonsful by mouth once daily. - amino acids (AMINO ACID ORAL) Take 3 g by mouth once daily. Peptide powder - VITAMIN E ACETATE ORAL Take 10 mg by mouth once daily. - ascorbic acid (VITAMIN C ORAL) Take 90 mg by mouth once daily. - aspirin, enteric coated (ADULT LOW DOSE ASPIRIN) 81 mg EC tablet Take 1 tablet by mouth once daily. Facility-Administered Medications as of 10/21/2023 - menthol-cetylpyridinium 1 Lozenge (CEPACOL LOZENGES) Problem List As Of Date 10/19/2023 Noted Resolved Osteoporosis [M81.0] 05/26/2015 Essential hypertension [I10] 2015 Mixed hyperlipidemia [E78.2] 2015 Hypothyroidism (acquired) [E03.9] 2015 Smoker [F17.200] 2015 Pain in joint, multiple sites [M25.50] 12/07/2015 Colon cancer screening [Z12.11] 12/07/2015 09/18/2019 Elevated fasting blood sugar [R73.01] 12/07/2015 09/18/2019 Hematuria [R31.9] 12/14/2015 09/18/2019 Bilateral carotid artery disease (HCC) [I77.9] 12/20/2015 09/18/2019 Decreased sensation of lower extremity [R20.8] 01/04/2016 Spinal stenosis, lumbar region, with neurogenic*01/23/2016 Urgency of urination [R39.15] 06/13/2016 Well adult exam [Z00.00] 12/26/2016 09/18/2019 Chronic bilateral low back pain with sciatica [*12/26/2016 Pain in both hands [M79.641, M79.642] 12/26/2016 09/18/2019 Encounter for screening mammogram for breast ca*12/26/2017 09/18/2019 Medicare annual wellness visit, subsequent [Z00*12/26/2017 Recurrent major depressive disorder, in remissi*07/01/2018 Medication management [Z79.899] 12/31/2018 Bilateral carotid artery stenosis [I65.23] 12/20/2015 Hematuria [R31.9] 12/14/2015 Moderate aortic insufficiency [I35.1] 01/19/2020 Agitation [R45.1] 02/02/2020 Lymphocytic colitis [K52.832] 05/16/2020 Sinus bradycardia [R00.1] 12/21/2020 Protein deficiency (HCC) [E46] 01/24/2021 09/20/2022 Essential tremor [G25.0] 09/18/2021 Living will on file [[id number]] 03/21/2022 Advance directive discussed with patient [Z71.8*03/21/2022 Stage 3a chronic kidney disease (HCC) [N18.31] 09/20/2022 Type 2 diabetes mellitus with stage 3a chronic *09/20/2022 Diabetic eye exam (HCC) [Z01.00, E11.9] 09/24/2022 Dementia without behavioral disturbance (HCC) [*12/20/2022 Hypokalemia [E87.6] 03/02/2023 Failure to thrive in adult [R62.7] 03/02 (more content not included)... [facility] US CAROTID ARTERIES FLETCHER VAS LABon 10-18-2023 US CAROTID ARTERIES FLETCHER VAS LAB Non-Invasive Vascular Laboratory [facility] Carotid Duplex Bilateral/Complete Date of service/time: 10/18/2023 3:05:43 PM Name: MS. EDISON ALBARRAN Date of : 1945 Age: 78 years Gender: F Clinical Indication Follow-up study on a patient with known carotid disease. TECHNIQUE -------- A carotid duplex ultrasound examination was performed, including grayscale imaging and color Doppler and spectral Doppler examination of the below mentioned arteries. FINDINGS -------- RIGHT SIDE Common carotid artery: Proximal: PSV: 61 cm/s. EDV: 12 cm/s. Mid: PSV: 62 cm/s. EDV: 15 cm/s. Distal: PSV: 59 cm/s. EDV: 15 cm/s. Internal carotid artery: Origin: PSV: 57 cm/s. EDV: 13 cm/s. Proximal: PSV: 75 cm/s. EDV: 14 cm/s. Mid: PSV: 66 cm/s. EDV: 17 cm/s. Distal: PSV: 90 cm/s. EDV: 23 cm/s. Mild heterogeneous plaque at origin. ICA/CCA Ratio: 1.5 External carotid artery: Origin: PSV: 152 cm/s. EDV: 21 cm/s. Moderate homogeneous plaque at origin. Subclavian artery: Proximal: PSV: 156 cm/s. EDV: 0 cm/s. Vertebral artery: PSV: 52 cm/s. EDV: 11 cm/s. LEFT SIDE Common carotid artery: Proximal: PSV: 82 cm/s. EDV: 15 cm/s. Mid: PSV: 60 cm/s. EDV: 13 cm/s. Distal: PSV: 67 cm/s. EDV: 13 cm/s. Mild heterogeneous plaque at distal. Internal carotid artery: Origin: PSV: 171 cm/s. EDV: 46 cm/s. Proximal: PSV: 209 cm/s. EDV: 53 cm/s. Mid: PSV: 77 cm/s. EDV: 21 cm/s. Distal: PSV: 104 cm/s. EDV: 28 cm/s. Moderate heterogeneous calcified and shadowing plaque at origin. ICA/CCA Ratio: 3.1 External carotid artery: Origin: PSV: 109 cm/s. EDV: 17 cm/s. Subclavian artery: Proximal: PSV: 113 cm/s. EDV: 0 cm/s. Vertebral artery: PSV: 68 cm/s. EDV: 19 cm/s. IMPRESSION Compared to prior study of 09/27/2022, No change in degree of stenosis bilaterally. Previously noted ectatic innominate and/or right subclavian artery not able to be visualized. Aberrant vessel noted on CT done 05/10/2021. RIGHT SIDE Internal carotid artery: 20-39% stenosis. Vertebral artery: Patent and antegrade flow noted. Innominate artery: Unable to visualize. Subclavian artery: Unable to visualize. Proximal vessel is patent. LEFT SIDE Common carotid artery: Plaque visualized without evidence of hemodynamically significant stenosis. Internal carotid artery: 60-79% stenosis. Findings may be underestimated due to calcified shadowing plaque at origin . Vertebral artery: Patent and antegrade flow noted. Technologist: Kesha Nelson RVT, [facility] Ordering physician: KURT SARAVIA Interpreting physician: NICKI Ibrahim DO Final CC [employer] [facility] Image : [id number] [email or web address] See Link below for Image Normal [facility] ALBUMIN/CREAT RATIO RND URon 09-26-2023 Albumin DL <= 20 mg/L (U) [Mass/Vol] [facility] Albumin/Creatinine (U) [Mass ratio] <30 mg/g [facility] Creatinine (U) [Mass/Vol] 48.2 mg/dL 20.0 - 300.0 mg/dL [facility] CNPNon 09-26-2023 [facility] Telephone ([facility]) EDISON ALBARRAN ([id number]) 1945 F Date Time Provider Department 09/26/23 KURT SARAVIA [facility] During your visit today, we recorded the following information about you: Kurt Saravia MD 09/26/2023 11:40 AM Signed Let patient know her thyroid lab, urine test and A1c were all ok. Her lipid panel showed her Trigs were ok at 153, her HDL is low at 44 (goal>50), LDL is elevated at 115 (goal<100) see if taking the whole atorvastatin 40 mg tab a day or only 1/2? Meghan Cruz OCCA 09/26/2023 12:00 PM Signed TC to patient with no answer. Left VM to return call to office. MACIEL Hu Roxanne, MA 09/27/2023 11:09 AM Signed Left additional message for patient to contact office. JANAE Jimenez Roxanne, MA 10/02/2023 9:26 AM Signed Patient indicated that she does take a whole tablet. She does admit she misses her night time pills. They are pre packages but she sometimes forgets to take. She tried putting on her night stand but then the dog got the pills. She will work on coming up with ways or place where she will not forget. JANAE Jimenez Jeffrey A, MD 10/02/2023 9:46 PM Signed Noted. Allergies As of Date: 09/26/2023 Noted Allergy Reaction BACTRIM (SULFAMETHOXAZOLE-TRIMETH* 14 - Other: See Comments Comments: Unknown. CEPHALEXIN 11/22/2014 14 - Other: See Comments Comments: Unknown. CITALOPRAM 01/05/2020 7 - Swelling Comments: Throat swelled CYMBALTA (DULOXETINE) 01/05/2020 14 - Other: See Comments Comments: Made her feel groggy. Date Reviewed: 09/26/2023 Reviewed by: Kurt Saravia MD - Fully Assessed Reason for Visit: Results [95] Prescriptions as of 10/02/2023 - donepezil (ARICEPT) 5 mg tablet Take 1 tablet by mouth daily with breakfast. - cyanocobalamin (VITAMIN B-12) 500 mcg tablet Take 1 tablet by mouth once daily. - levothyroxine (SYNTHROID) 50 mcg tablet Take 1 tablet by mouth daily before breakfast. Mon-Sat and none on Saturday, Saturday - omeprazole (PRILOSEC) 40 mg capsule Take 1 capsule by mouth two times a day. Take 30-60 minutes before breakfast and dinner on an empty stomach. - atorvastatin (LIPITOR) 40 mg tablet Take 1 tablet by mouth daily at bedtime. For cholesterol. - FLUoxetine (PROZAC) 40 mg capsule Take 1 capsule by mouth once daily. - potassium chloride SR (MICRO-K) 10 mEq CR capsule Take 2 capsules by mouth once daily. - WALKER ROLLATOR SEAT WITH 6 WHEELS - RED Any color is fine and with a basket if available. Dx: Z91.81, M54.40, R20.8, M46.062 and R26.81 - gabapentin (NEURONTIN) 300 mg capsule Take 1 capsule by mouth daily at bedtime for 180 days. - QUEtiapine (SEROQUEL) 25 mg tablet Take 0.5 tablets by mouth daily at bedtime. - gabapentin (NEURONTIN) 300 mg capsule Take 300 mg by mouth daily at bedtime. - mirabegron (MYRBETRIQ) 50 mg Tb24 Take 1 tablet by mouth once daily. - cyclobenzaprine (FLEXERIL) 10 mg tablet Take 1 tablet by mouth every 8 hours as needed for muscle spasm (or pain). - wheat dextrin (BENEFIBER HEALTHY SHAPE) 5 gram/7.4 gram powd Take 2 teaspoonsful by mouth once daily. - amino acids (AMINO ACID ORAL) Take 3 g by mouth once daily. Peptide powder - VITAMIN E ACETATE ORAL Take 10 mg by mouth once daily. - ascorbic acid (VITAMIN C ORAL) Take 90 mg by mouth once daily. - aspirin, enteric coated (ADULT LOW DOSE ASPIRIN) 81 mg EC tablet Take 1 tablet by mouth once daily. Facility-Administered Medications as of 10/02/2023 - menthol-cetylpyridinium 1 Lozenge (CEPACOL LOZENGES) Problem List As Of Date 09/26/2023 Noted Resolved Osteoporosis [M81.0] 05/26/2015 Essential hypertension [I10] 2015 Mixed hyperlipidemia [E78.2] 2015 Hypothyroidism (acquired) [E03.9] 2015 Smoker [F17.200] 2015 Pain in joint, multiple sites [M25.50] 12/07/2015 Colon cancer screening [Z12.11] 12/07/2015 09/18/2019 Elevated fasting blood sugar [R73.01] 12/07/2015 09/18/2019 Hematuria [R31.9] 12/14/2015 09/18/2019 Bilateral carotid artery disease (HCC) [I77.9] 12/20/2015 09/18/2019 Decreased sensation of lower extremity [R20.8] 01/04/2016 Spinal stenosis, lumbar region, with neurogenic*01/23/2016 Urgency of urination [R39.15] 06/13/2016 Well adult exam [Z00.00] 12/26/2016 09/18/2019 Chronic bilateral low back pain with sciatica [*12/26/2016 Pain in both hands [M79.641, M79.642] 12/26/2016 09/18/2019 Encounter for screening mammogram for breast ca*12/26/2017 09/18/2019 Medicare annual wellness visit, subsequent [Z00*12/26/2017 Recurrent major depressive disorder, in remissi*07/01/2018 Medication management [Z79.899] 12/31/2018 Bilateral carotid artery stenosis [I65.23] 12/20/2015 Hematuria [R31.9] 12/14/2015 Moderate aortic insufficiency [I35.1] 01/19/2020 Agitation [R45.1] 02/02/2020 Lymphocytic colitis [K52.832] 08 (more content not included)... Normal [facility] LIPID PANEL, NONFASTINGon Cholesterol [Mass/Vol] 190 mg/dL <200 mg/dL [facility] HDL Cholesterol, Nonfasting 44 mg/dL >39 mg/dL [facility] LDL Cholesterol, Nonfasting 115 mg/dL High <100 mg/dL [facility] LDL/HDL Ratio, Nonfasting 2.61 mg/dL High <2.54 mg/dL [facility] Non HDL Cholesterol, Nonfasting 146 mg/dL High <130 mg/dL [facility] Total Chol/HDL Ratio, Nonfasting 4.32 mg/dL <5.10 mg/dL [facility] Triglycerides, Nonfasting 153 mg/dL High <150 mg/dL [facility] VLDL Cholesterol, Nonfasting 31 mg/dL High <30 mg/dL [facility] TSH BLDon 09-26-2023 TSH Qn 0.874 m[IU]/L 0.270 - 4.200 mIU/L [facility] ALBUMIN/CREAT RATIO RND URon 09-25-2023 Albumin DL <= 20 mg/L (U) [Mass/Vol] mg/dL Normal [facility] Comment on above: Order Comment: Speci men Type: URINE SPECIMEN Ordering Facility: [facility] Address: [address] [place] [address] Performed By: #### U ACR #### [facility] CLIA [id number] [address] [place] [address] [place] [address] [place] Albumin/Creatinine (U) [Mass ratio] <25 Normal <30 [facility] Comment on above: Order Comment: Speci men Type: URINE SPECIMEN Ordering Facility: [facility] Address: [address] [place] [address] Result Comment: Adul t Male and Female Nephrotic Criteria: <30 mg/g is considered normal to mildly increased 30-300 mg/g is considered moderately increased >300 mg/g is considered severely increased KDIGO. (2013). KDIGO 2012 Clinical Practice Guideline for the Evaluation and Management of Chronic Kidney Disease. Official Journal of the International Society of Nephrology, 3(1), 1-150. Performed By: #### U ACR #### [facility] CLIA [id number] [address] [place] [address] [place] Creatinine (U) [Mass/Vol] 48.2 mg/dL Normal 20.0-300.0 [facility] Comment on above: Order Comment: Speci men Type: URINE SPECIMEN Ordering Facility: [facility] Address: [address] [place] [address] Performed By: #### U ACR #### [facility] CLIA [id number] [address] [place] [address] [place] CNOVon 09-25-2023 CNOV Office Visit ([facility] ) EDISON ALBARRAN ([id number]) 1945 F Date Time Provider Department 09/25/23 2:40 PM KURT SARAVIA [facility] During your visit today, we recorded the following information about you: Pulse Respiration Blood pressure Weight 64/minute 16/minute 122/80 46.3 kg Kurt Saravia MD 09/26/2023 9:36 AM Signed Chief Complaint Patient presents with: F/U 6 months HPI Edisonpankaj Albarran is a 78 year old female who presents here today for 6 month follow up. Patient has not been getting dyspepsia nausea or vomiting. Patient is smoking about 1/2 PPD. Her son back in Jul 2023. Any new concerns today? None Any recent ER/hospital visits? None Patient sees gastro - Dr. Hill - last visit 04/2023 Eye exam? [facility] Patient never went to see vascular to eval her possible dilated subclavian artery back in 11/2022. Patient saw brain [employer] Back in 04/2023 and was to have a f/u appt and missed it the day prior to the passing of her son. Since his she does not drive any further then [facility] therefore needs a neurologist in the area. The gabapentin still helping her joint pain. Past medical history, appointments, medications, allergies reviewed. Previous Medical History PAST MEDICAL HISTORY Diagnosis Date Advance directive discussed with patient 03/21/202203/2022 Agitation 02/02/2020 Aneurysm of right subclavian artery (HCC) At risk for falling 04/12/2023 Bilateral carotid artery disease (HCC) 12/20/2015 US 12/2015: 20-40% on Rt and 40-60% on left. US 01/2017 unchanged. Chronic bilateral low back pain with sciatica 12/26/2016 Constipation 07/09/2018 after starting lipitor Decreased sensation of lower extremity 01/04/2016 Dementia without behavioral disturbance (HCC) 12/20/2022 Diabetic eye exam (HCC) 09/24/2022 Last done 08/08/22 Essential hypertension 2015 Essential tremor 09/18/2021 Ex-smoker 2015 1/2-1 PPD since early 50s, quit January 2018 Failure to thrive in adult 03/02/2023 Hematuria 12/14/2015 Urology w/u neg. Hypothyroidism (acquired) 2015 Living will on file 03/21/2022 DPA; Casey (son) Lymphocytic colitis 05/16/2020 Possibly Zoloft related. Mediastinal lymphadenopathy 08/04/2018 Prominent Mediastinal lymphadenopathy noted on CT 08/01/18. CT 01/05/2019 no mediastinal lymphadenopathy Mixed hyperlipidemia 2015 Moderate aortic insufficiency 01/19/[address] Cordoba Osteoporosis 05/26/2015 Pain in both hands 12/26/2016 Pain in joint, multiple sites 12/07/2015 On neurontin Recurrent major depressive disorder, in remission ([facility]) 07/01/2018 Spinal stenosis, lumbar region, with neurogenic claudication 01/23/2016 Stage 3a chronic kidney disease ([facility]) 09/20/2022 Type 2 diabetes mellitus with stage 3a chronic kidney disease ([facility]) 09/20/2022 Type 2 diabetes mellitus without complication, without long-term current use of insulin ([facility]) 12/07/2015 Unsteady gait 03/06/2023 Urgency of urination 06/13/2016 Previous Surgical History PAST SURGICAL HISTORY Procedure Laterality Date 2D ECHO (EXEP) 09/2020 EF=64%, Mild Noe dysf and La enlargment, 2+ AR CARPAL TUNNEL RIGHT WRIST COLONOSCOPY 2010 repeat 10 yrs COLONOSCOPY FLX DX W/COLLJ SPEC WHEN PFRMD 04/21/2020 Colonoscopy CORRECTION OF BUNION Left ESOPHAGOGASTRODUODENOSCOPY TRANSORAL DIAGNOSTIC 04/21/2020 EGD FECAL OCCULT BLOOD TEST 01/01/2018 negative HYSTERECTOMY HX 1970 one ovary removed LEXISCAN STRESS TEST 11/21/2020 negative PAST SURGICAL HISTORY OF 1971 appendectomy PAST SURGICAL HISTORY OF 1987 breast lump, benign STRESS TEST 07/09/2016 WNL TUMOR REMOVAL (SPECIFY LOCATION) HX 2001 stomach Family History FAMILY HISTORY Problem Relation Age of Onset Breast Cancer Mother over 50 Hypertension Mother Lipids Mother Osteoporosis Mother Thyroid Mother Cancer Father stomach Cancer Brother lung Alzheimer's Disease Brother dementia Diabetes Brother Patient Allergies ALLERGIES Allergen Reactions Bactrim [Sulfametho* Other: See Comments Unknown. Cephalexin Other: See Comments Unknown. Citalopram Swelling Throat swelled Cymbalta [Duloxetin* Other: See Comments Made her feel groggy. Current Medications Current Outpatient Medications on File Prior to Visit Medication Sig omeprazole (PRILOSEC) 40 mg capsule Take 1 capsule by mouth two times a day. Take 30-60 minutes before breakfast and dinner on an empty stomach. atorvastatin (LIPITOR) 40 mg tablet Take 1 tablet by mouth daily at bedtime. For cholesterol. FLUoxetine (PROZAC) 40 mg capsule Take 1 capsule by mouth once daily. potassium chloride SR (MICRO-K) 10 mEq CR capsule Take 2 capsules by mouth once daily. donepezil (ARICEPT) 5 mg tablet Take 1 tablet by mouth daily with breakfast. WALKER ROLLATOR SEAT WITH 6 WHEELS (more content not included)... Normal [facility] HbA1c (Bld)on 09-25-2023 Average glucose Estimated from glycated hemoglobin (Bld) [Mass/Vol] 108 mg/dL [facility] HbA1c (Bld) [Mass fraction] 5.4 % 4.3 - 5.6 % [facility] Average glucose Estimated from glycated hemoglobin (Bld) [Mass/Vol] 108 mg/dL Normal [facility] Comment on above: Order Comment: Deshawn ramirez Type: BLOOD SPECIMENOrdering Facility: [facility] Address: [address] [place] [address] Result Comment: eAG: (Estimated average glucose) is a calculated value from HgbA1c and is patient service representative of the average blood glucose level in the last 2-3 month period. Performed By: #### 5 5454-3 ####[facility] [id number] [place] [address] [place] [facility] HbA1c (Bld) [Mass fraction] 5.4 % Normal 4.3-5.6 [facility] Comment on above: Order Comment: Deshawn ramirez Type: BLOOD SPECIMENOrdering Facility: [facility] Address: [address] [place] [address] Result Comment: Amer ican Diabetes Association guidelines indicate that patients with HgbA1c in the range 5.7-6.4% are at increased risk for development of diabetes, and intervention by lifestyle modification may be beneficial. HgbA1c greater or equal to 6.5% is considered diagnostic of diabetes. Performed By: #### 5 5454-3 ####[facility] [id number] [address] [place] LIPID PANEL, NONFASTINGon Cholesterol [Mass/Vol] 190 mg/dL Normal <200 [facility] Comment on above: Order Comment: Deshawn ramirez Type: BLOOD SPECIMEN Ordering Facility: [facility] Address: [address] [place] [address] Result Comment: <200 mg/dL, Desirable 200-239 mg/dL, Borderline high >239 mg/dL, High Performed By: #### L IP, 3016-3 #### [facility] CLIA [id number] [address] [place] [address] [facility] [place] HDL CHOLESTEROL, NF 44 mg/dL Normal >39 [facility] Comment on above: Order Comment: Deshawn ramirez Type: BLOOD SPECIMEN Ordering Facility: [facility] Address: [address] [place] [address] Result Comment: 40-5 9 mg/dL, Acceptable >59 mg/dL, High: Negative risk factor for coronary heart disease <40 mg/dL, Low: Positive risk factor for coronary heart disease Performed By: #### L IPNF, 3016-3 #### [facility] CLIA [id number] [address] [place] LDL CHOLESTEROL, NF 115 mg/dL High <100 [facility] Comment on above: Order Comment: Deshawn ramirez Type: BLOOD SPECIMEN Ordering Facility: [facility] Address: [address] [place] [address] Result Comment: <100 mg/dL, Optimal 100-129 mg/dL, Near optimal/above optimal 130-159 mg/dL, Borderline high 160-189 mg/dL, High >189 mg/dL, Very high Secondary prevention optimal LDL Cholesterol levels are recommended to be < 70 mg/dL Performed By: #### L IPNF, 3016-3 #### [facility] CLIA [id number] [address] [place] [address] [facility] [place] LDL/HDL RATIO, NF 2.61 mg/dL High <2.54 [facility] Comment on above: Order Comment: Deshawn ramirez Type: BLOOD SPECIMEN Ordering Facility: [facility] Address: [address] [place] [address] Result Comment: Jax newell: 1. National Cholesterol Education Program ATP III Guideline At-A-Glance Quick Desk Reference: National Heart, Lung, and Blood [place]. National Institutes of Health. 2001: NIH Publication No. 01-3305. 2. An International Atherosclerosis Society position paper: global recommendations for the management of dyslipidemia: executive summary, Atherosclerosis. 2014: 232(2):410-413. Performed By: #### L PAU, 3015- #### [facility] CLIA [id number] [address] [place] [address] [place] NON HDL CHOL, NF 146 mg/dL High <130 [facility] Comment on above: Order Comment: Speci men Type: BLOOD SPECIMEN Ordering Facility: [facility] Address: [address] [place] [address] Result Comment: <130 mg/dL, Optimal 130-159 mg/dL, Near optimal/above optimal 160-189 mg/dL, Borderline high 190-219 mg/dL, High >219 mg/dL, Very high Secondary prevention optimal non HDL Cholesterol levels are recommended to be <100 mg/dL Performed By: #### L PAU, 3015- #### [facility] CLIA [id number] [address] [place] [address] [place] T CHOL/HDL RATIO NF 4.32 mg/dL Normal <5.10 [facility] Comment on above: Order Comment: Speci men Type: BLOOD SPECIMEN Ordering Facility: [facility] Address: [address] [place] [address] Performed By: #### L PAU, 3015- #### [facility] CLIA [id number] [address] [place] [address] [place] TRIGLYCERIDES, NF 153 mg/dL High <150 [facility] Comment on above: Order Comment: Speci men Type: BLOOD SPECIMEN Ordering Facility: [facility] Address: [address] [place] [address] Result Comment: <150 mg/dL, Normal 150-199 mg/dL, Borderline high 200-499 mg/dL, High >499 mg/dL, Very high Performed By: #### L PAU, 3015- #### [facility] CLIA [id number] [address] [place] [address] [place] VLDL CHOLESTEROL, NF 31 mg/dL High <30 [facility] Comment on above: Order Comment: Speci men Type: BLOOD SPECIMEN Ordering Facility: [facility] Address: [address] [place] [address] Performed By: #### L PAU, 3016-3 #### [facility] CLIA [id number] [address] [place] [address] [place] TSH SerPl-aCncon 09-25-2023 TSH Qn 0.874 m[IU]/L Normal 0.270-4.200 [facility] Comment on above: Order Comment: Speci men Type: BLOOD SPECIMENOrdering Facility: [facility] Address: [address] [place] [address] Performed By: #### L PAU, 3016-3 ####[facility] [id number] [facility] [address] [place] CNOVon 08-23-2023 [facility] EDISON ALBARRAN ([id number]) 1945 F Date Time Provider Department 08/23/23 2:40 PM [facility] During your visit today, we recorded the following information about you: Pulse Respiration Blood pressure Weight 82/minute 16/minute 115/58 44.9 kg Kurt Saravia MD 08/23/2023 8:10 PM Signed Chief Complaint Patient presents with: Follow Up HPI Edison E Avis is a 78 year old female who presents here today for discussion of GERD meds, CKD and smoking. . Patient has npt been getting dyspepsia nausea or vomiting. Patient is smoking about 1/2 PPD. Her son back in Jul 2023. Past medical history, appointments, medications, allergies reviewed. Previous Medical History PAST MEDICAL HISTORY Diagnosis Date Advance directive discussed with patient 03/21/202203/2022 Agitation 02/02/2020 Aneurysm of right subclavian artery (HCC) At risk for falling 04/12/2023 Bilateral carotid artery disease (HCC) 12/20/2015 US 12/2015: 20-40% on Rt and 40-60% on left. US 01/2017 unchanged. Chronic bilateral low back pain with sciatica 12/26/2016 Constipation 07/09/2018 after starting lipitor Decreased sensation of lower extremity 01/04/2016 Dementia without behavioral disturbance (HCC) 12/20/2022 Diabetic eye exam (HCC) 09/24/2022 Last done 08/08/22 Essential hypertension 2015 Essential tremor 09/18/2021 Ex-smoker 2015 1/2-1 PPD since early , quit January 2018 Failure to thrive in adult 03/02/2023 Hematuria 12/14/2015 Urology w/u neg. Hypothyroidism (acquired) 2015 Living will on file 03/21/2022 DPA; Casey (son) Lymphocytic colitis 05/16/2020 Possibly Zoloft related. Mediastinal lymphadenopathy 08/04/2018 Prominent Mediastinal lymphadenopathy noted on CT 08/01/18. CT 01/05/2019 no mediastinal lymphadenopathy Mixed hyperlipidemia 2015 Moderate aortic insufficiency 01/19/[address] Cordoba Osteoporosis 05/26/2015 Pain in both hands 12/26/2016 Pain in joint, multiple sites 12/07/2015 On neurontin Recurrent major depressive disorder, in remission ([facility]) 07/01/2018 Spinal stenosis, lumbar region, with neurogenic claudication 01/23/2016 Stage 3a chronic kidney disease (HCC) 09/20/2022 Type 2 diabetes mellitus with stage 3a chronic kidney disease (HCC) 09/20/2022 Type 2 diabetes mellitus without complication, without long-term current use of insulin (HCC) 12/07/2015 Unsteady gait 03/06/2023 Urgency of urination 06/13/2016 Previous Surgical History PAST SURGICAL HISTORY Procedure Laterality Date 2D ECHO (EXEP) 09/2020 EF=64%, Mild Noe dysf and La enlargment, 2+ AR CARPAL TUNNEL RIGHT WRIST COLONOSCOPY 2010 repeat 10 yrs COLONOSCOPY FLX DX W/COLLJ SPEC WHEN PFRMD 04/21/2020 Colonoscopy CORRECTION OF BUNION Left ESOPHAGOGASTRODUODENOSCOPY TRANSORAL DIAGNOSTIC 04/21/2020 EGD FECAL OCCULT BLOOD TEST 01/01/2018 negative HYSTERECTOMY HX 1970 one ovary removed LEXISCAN STRESS TEST 11/21/2020 negative PAST SURGICAL HISTORY OF 1971 appendectomy PAST SURGICAL HISTORY OF 1987 breast lump, benign STRESS TEST 07/09/2016 WNL TUMOR REMOVAL (SPECIFY LOCATION) HX 2002 stomach Family History FAMILY HISTORY Problem Relation Age of Onset Breast Cancer Mother over 50 Hypertension Mother Lipids Mother Osteoporosis Mother Thyroid Mother Cancer Father stomach Cancer Brother lung Alzheimer's Disease Brother dementia Diabetes Brother Patient Allergies ALLERGIES Allergen Reactions Bactrim [Sulfametho* Other: See Comments Unknown. Cephalexin Other: See Comments Unknown. Citalopram Swelling Throat swelled Cymbalta [Duloxetin* Other: See Comments Made her feel groggy. Current Medications Current Outpatient Medications on File Prior to Visit Medication Sig atorvastatin (LIPITOR) 40 mg tablet Take 1 tablet by mouth daily at bedtime. For cholesterol. FLUoxetine (PROZAC) 40 mg capsule Take 1 capsule by mouth once daily. potassium chloride SR (MICRO-K) 10 mEq CR capsule Take 2 capsules by mouth once daily. donepezil (ARICEPT) 5 mg tablet Take 1 tablet by mouth daily with breakfast. WALKER ROLLATOR SEAT WITH 6 WHEELS - RED Any color is fine and with a basket if available. Dx: Z91.81, M54.40, R20.8, M46.062 and R26.81 gabapentin (NEURONTIN) 300 mg capsule Take 1 capsule by mouth daily at bedtime for 180 days. QUEtiapine (SEROQUEL) 25 mg tablet Take 0.5 tablets by mouth daily at bedtime. cyanocobalamin (VITAMIN B-12) 500 mcg tablet Take 1 tablet by mouth once daily. gabapentin (NEURONTIN) 300 mg capsule Take 300 mg by mouth daily at bedtime. omeprazole (PRILOSEC) 40 mg capsule Take 1 capsule by mouth twice daily. Take 30-60 minutes before breakfast and dinner on an empty stomach. levothyroxine (SYNTHROID) 50 mcg tablet Take 1 tablet by mouth daily before (more content not included)... Normal [facility] CBC W Auto Differential pane l (Bld)on 08-06-2023 Basophils (Bld) [#/Vol] 0.05 10*3/uL Normal <0.11 [facility] Comment on above: Order Comment: Speci men Type: BLOOD SPECIMENOrdering Facility: [facility] Address: [address] [place] [address] Performed By: #### 1 4196-0, 83280-7 ####[facility] LABCLIA [id number] [place] [address] [place] Basophils/100 WBC (Bld) 0.7 % Normal [facility] Comment on above: Order Comment: Speci men Type: BLOOD SPECIMENOrdering Facility: [facility] Address: [address] [place] [address] Performed By: #### 1 4196-0, 56806-6 ####[facility] LABCLIA [id number] [place] [address] [place] Differential cell count method Nom (Bld) Auto Normal [facility] Comment on above: Order Comment: Speci men Type: BLOOD SPECIMENOrdering Facility: [facility] Address: [address] [place] [address] Performed By: #### 1 4196-0, 45751-2 ####[facility] LABCLIA [id number] [place] [address] [place] Eosinophils (Bld) [#/Vol] 0.08 10*3/uL Normal <0.46 [facility] Comment on above: Order Comment: Speci men Type: BLOOD SPECIMENOrdering Facility: [facility] Address: [address] [place] [address] Performed By: #### 1 4196-0, 17290-6 ####[facility] LABCLIA [id number] [place] [address] [place] Eosinophils/100 WBC (Bld) 1.2 % Normal [facility] Comment on above: Order Comment: Speci men Type: BLOOD SPECIMENOrdering Facility: [facility] Address: [address] [place] [address] Performed By: #### 1 4196-0, 35125-8 ####[facility] LABCLIA [id number] [place] [address] [place] Erythrocyte distribution width (RBC) [Ratio] 13.3 % Normal 11.5-15.0 [facility] Comment on above: Order Comment: Speci men Type: BLOOD SPECIMENOrdering Facility: [facility] Address: [address] [place] [address] Performed By: #### 1 4196-0, 05175-1 ####[facility] LABCLIA [id number] [place] [address] [place] Hematocrit (Bld) [Volume fraction] 37.1 % Normal 36.0-46.0 [facility] Comment on above: Order Comment: Speci men Type: BLOOD SPECIMENOrdering Facility: [facility] Address: [address] [place] [address] Performed By: #### 1 4196-0, 26126-5 ####[facility] LABIA [id number] [place] [address] [place] Hemoglobin (Bld) [Mass/Vol] 11.9 g/dL Normal 11.5-15.5 [facility] Comment on above: Order Comment: Speci men Type: BLOOD SPECIMENOrdering Facility: [facility] Address: [address] [place] [address] Performed By: #### 1 4196-0, 02996-0 ####[facility] LABCLIA [id number] [place] [address] [place] Immature granulocytes (Bld) [#/Vol] 0.03 10*3/uL Normal <0.10 [facility] Comment on above: Order Comment: Speci men Type: BLOOD SPECIMENOrdering Facility: [facility] Address: [address] [place] [address] Performed By: #### 1 4196-0, 34585-5 ####[facility] LABCLIA [id number] [place] [address] [place] Immature granulocytes/100 WBC (Bld) 0.4 % Normal [facility] Comment on above: Order Comment: Speci men Type: BLOOD SPECIMENOrdering Facility: [facility] Address: [address] [place] [address] Performed By: #### 1 4196-0, 90568-2 ####[facility] LABCLIA [id number] [place] [address] [place] Lymphocytes (Bld) [#/Vol] 1.78 10*3/uL Normal 1.00-4.00 [facility] Comment on above: Order Comment: Speci men Type: BLOOD SPECIMENOrdering Facility: [facility] Address: [address] [place] [address] Performed By: #### 1 4196-0, 68800-7 ####[facility] LABCLIA [id number] [place] [address] [place] Lymphocytes/100 WBC (Bld) 25.8 % Normal [facility] Comment on above: Order Comment: Speci men Type: BLOOD SPECIMENOrdering Facility: [facility] Address: [address] [place] [address] Performed By: #### 1 4196-0, 01713-1 ####[facility] LABCLIA [id number] [place] [address] [place] MCH (RBC) [Entitic mass] 29.8 pg Normal 26.0-34.0 [facility] Comment on above: Order Comment: Speci men Type: BLOOD SPECIMENOrdering Facility: [facility] Address: [address] [place] [address] Performed By: #### 1 4196-0, 85110-3 ####[facility] LABCLIA [id number] [place] [address] [place] MCHC (RBC) [Mass/Vol] 32.1 g/dL Normal 30.5-36.0 [facility] Comment on above: Order Comment: Speci men Type: BLOOD SPECIMENOrdering Facility: [facility] Address: [address] [place] [address] Performed By: #### 1 4196-0, 18758-2 ####[facility] LABCLIA [id number] [place] [address] [place] MCV (RBC) [Entitic vol] 92.8 fL Normal 80.0-100.0 [facility] Comment on above: Order Comment: Speci men Type: BLOOD SPECIMENOrdering Facility: [facility] Address: [address] [place] [address] Performed By: #### 1 4196-0, 03400-4 ####[facility] LABIA [id number] [place] [address] [place] Monocytes (Bld) [#/Vol] 0.59 10*3/uL Normal <0.87 [facility] Comment on above: Order Comment: Speci men Type: BLOOD SPECIMENOrdering Facility: [facility] Address: [address] [place] [address] Performed By: #### 1 4196-0, 64220-5 ####[facility] LABIA [id number] [place] [address] [place] Monocytes/100 WBC (Bld) 8.6 % Normal [facility] Comment on above: Order Comment: Speci men Type: BLOOD SPECIMENOrdering Facility: [facility] Address: [address] [place] [address] Performed By: #### 1 4196-0, 18352-1 ####[facility] LABIA [id number] [place] [address] [place] Neutrophils (Bld) [#/Vol] 4.37 10*3/uL Normal 1.45-7.50 [facility] Comment on above: Order Comment: Speci men Type: BLOOD SPECIMENOrdering Facility: [facility] Address: [address] [place] [address] Performed By: #### 1 4196-0, 74560-3 ####[facility] LABCLIA [id number] [place] [address] [place] Neutrophils/100 WBC (Bld) 63.3 % Normal [facility] Comment on above: Order Comment: Speci men Type: BLOOD SPECIMENOrdering Facility: [facility] Address: [address] [place] [address] Performed By: #### 1 4196-0, 95206-9 ####[facility] LABCLIA [id number] [place] [address] [place] Nucleated RBC (Bld) [#/Vol] 10*3/uL Normal <0.01 [facility] Comment on above: Order Comment: Speci men Type: BLOOD SPECIMENOrdering Facility: [facility] Address: [address] [place] [address] Performed By: #### 1 4196-0, 43642-1 ####[facility] LABIA [id number] [place] [address] [place] Nucleated RBC/100 WBC (Bld) [Ratio] 0.0 /100 WBC Normal [facility] Comment on above: Order Comment: Speci men Type: BLOOD SPECIMENOrdering Facility: [facility] Address: [address] [place] [address] Performed By: #### 1 4196-0, 43315-3 ####[facility] LABIA [id number] [place] [address] [place] Platelet mean volume (Bld) [Entitic vol] 9.7 fL Normal 9.0-12.7 [facility] Comment on above: Order Comment: Speci men Type: BLOOD SPECIMENOrdering Facility: [facility] Address: [address] [place] [address] Performed By: #### 1 4196-0, 57502-8 ####[facility] LABCLIA [id number] [place] [address] [place] Platelets (Bld) [#/Vol] 235 10*3/uL Normal 150-400 [facility] Comment on above: Order Comment: Speci men Type: BLOOD SPECIMENOrdering Facility: [facility] Address: [address] [place] [address] Performed By: #### 1 4196-0, 78339-8 ####[facility] LABCLIA [id number] [place] [address] [place] RBC (Bld) [#/Vol] 4.00 10*6/uL Normal 3.90-5.20 [facility] Comment on above: Order Comment: Speci men Type: BLOOD SPECIMENOrdering Facility: [facility] Address: [address] [place] [address] Performed By: #### 1 4196-0, 32298-3 ####[facility] LABCLIA [id number] [place] [address] [place] WBC (Bld) [#/Vol] 6.90 10*3/uL Normal 3.70-11.00 [facility] Comment on above: Order Comment: Speci men Type: BLOOD SPECIMENOrdering Facility: [facility] Address: [address] [place] [address] Performed By: #### 1 4196-0, 86760-3 ####[facility] LABCLIA [id number] [place] [address] [place] Comprehensive metabolic 2000 panelon 08-06-2023 Albumin [Mass/Vol] 3.9 g/dL Normal 3.9-4.9 [facility] Comment on above: Order Comment: Speci men Type: BLOOD SPECIMENOrdering Facility: [facility] Address: [address] [place] [address] Performed By: #### 5 0190-8, 2276-4, 97450-1 ####[facility] LABCLIA [id number] [id number] [address] [place] ALP [Catalytic activity/Vol] 110 U/L Normal 34-123 [facility] Comment on above: Order Comment: Speci men Type: BLOOD SPECIMENOrdering Facility: [facility] Address: [address] [place] [address] Performed By: #### 5 0190-8, 2276-01, ####[facility] LABCLIA [id number] [place] [address] [place] ALT [Catalytic activity/Vol] 14 U/L Normal 7-38 [facility] Comment on above: Order Comment: Speci men Type: BLOOD SPECIMENOrdering Facility: [facility] Address: [address] [place] [address] Performed By: #### 5 0190-8, 2276-01, ####[facility] LABCLIA [id number] [place] [address] [place] Anion gap [Moles/Vol] 9 mmol/L Normal 9-18 [facility] Comment on above: Order Comment: Speci men Type: BLOOD SPECIMENOrdering Facility: [facility] Address: [address] [place] [address] Performed By: #### 5 0190-8, 2276-01, ####[facility] LABCLIA [id number] [place] [address] [place] AST [Catalytic activity/Vol] 24 U/L Normal 13-35 [facility] Comment on above: Order Comment: Speci men Type: BLOOD SPECIMENOrdering Facility: [facility] Address: [address] [place] [address] Performed By: #### 5 0190-8, 2276-01, ####[facility] LABCLIA [id number] [address] [address] [place] Bilirubin [Mass/Vol] 0.4 mg/dL Normal 0.2-1.3 [facility] Comment on above: Order Comment: Speci men Type: BLOOD SPECIMENOrdering Facility: [facility] Address: [address] [place] [address] Performed By: #### 5 0190-8, 2276-01, ####[facility] LABCLIA [id number] [place] [address] [place] Calcium [Mass/Vol] 9.6 mg/dL Normal 8.5-10.2 [facility] Comment on above: Order Comment: Speci men Type: BLOOD SPECIMENOrdering Facility: [facility] Address: [address] [place] [address] Performed By: #### 5 0190-8, 2276-01, ####[facility] LABCLIA [id number] [place] [address] [place] Chloride [Moles/Vol] 101 mmol/L Normal 97-105 [facility] Comment on above: Order Comment: Speci men Type: BLOOD SPECIMENOrdering Facility: [facility] Address: [address] [place] [address] Performed By: #### 5 0190-8, 2276-01, ####[facility] LABCLIA [id number] [place] [address] [place] CO2 [Moles/Vol] 28 mmol/L Normal 22-30 [facility] Comment on above: Order Comment: Speci men Type: BLOOD SPECIMENOrdering Facility: [facility] Address: [address] [place] [address] Performed By: #### 5 0190-8, 2276-01, ####[facility] LABCLIA [id number] [place] [address] [place] Creatinine [Mass/Vol] 0.99 mg/dL High 0.58-0.96 [facility] Comment on above: Order Comment: Speci men Type: BLOOD SPECIMENOrdering Facility: [facility] Address: [address] [place] [address] Performed By: #### 5 0190-8, 2276-4, 64959-3 ####[facility] LABIA [id number] [place] [address] [place] Creatinine and Glomerular filtration rate.predicted panel (S/P/Bld) 58 mL/min/1.73m??? Low >=60 [facility] Comment on above: Order Comment: Deshawn ramirez Type: BLOOD SPECIMENOrdering Facility: [facility] Address: [address] [place] [address] Result Comment: Britney mated Glomerular Filtration Rate (eGFR) is calculated using the 2020 CKD-EPI creatinine equation. This equation utilizes serum creatinine, sex, and age as parameters. The creatinine assay has traceable calibration to isotope dilution-mass spectrometry. Refer to KDIGO guidelines for clinical interpretation. In patients with unstable renal function, e.g. those with acute kidney injury, the eGFR may not accurately reflect actual GFR. Performed By: #### 5 0190-8, 2275-4, 13308-5 ####[facility] LABIA [id number] [place] [address] [place] Glucose [Mass/Vol] 97 mg/dL Normal 74-99 [facility] Comment on above: Order Comment: Deshawn ramirez Type: BLOOD SPECIMENOrdering Facility: [facility] Address: [address] [place] [address] Result Comment: The [place] Diabetes Association (ADA) provides guidance for cutoff values for fasting glucose and random glucose. The ADA defines fasting as no caloric intake for at least 8 hours. Fasting plasma glucose results between 100 to 125 mg/dL indicate increased risk for diabetes (prediabetes). Fasting plasma glucose results greater than or equal to 126 mg/dL meet the criteria for diagnosis of diabetes. In the absence of unequivocal hyperglycemia, results should be confirmed by repeat testing. In a patient with classic symptoms of hyperglycemia or hyperglycemic crisis, random plasma glucose results greater than or equal to 200 mg/dL meet the criteria for diagnosis of diabetes. Reference: Standards of Medical Care in Diabetes 2016, [place] [employer]. Diabetes Care. 2016.39(Suppl 1). Performed By: #### 5 0190-8, 2276-01, ####[facility] LABCLIA [id number] [address] [address] [place] Potassium [Moles/Vol] 4.3 mmol/L Normal 3.7-5.1 [facility] Comment on above: Order Comment: Speci men Type: BLOOD SPECIMENOrdering Facility: [facility] Address: [address] [place] [address] Performed By: #### 5 0190-8, 2276-01, ####[facility] LABCLIA [id number] [place] [address] [place] Protein [Mass/Vol] 6.0 g/dL Low 6.3-8.0 [facility] Comment on above: Order Comment: Speci men Type: BLOOD SPECIMENOrdering Facility: [facility] Address: [address] [place] [address] Performed By: #### 5 0190-8, 2276-01, ####[facility] LABCLIA [id number] [place] [address] [place] Sodium [Moles/Vol] 138 mmol/L Normal 136-144 [facility] Comment on above: Order Comment: Speci men Type: BLOOD SPECIMENOrdering Facility: [facility] Address: [address] [place] [address] Performed By: #### 5 0190-8, 2276-01, ####[facility] LABCLIA [id number] [address] [address] [place] Urea nitrogen [Mass/Vol] 9 mg/dL Normal 7-21 [facility] Comment on above: Order Comment: Speci men Type: BLOOD SPECIMENOrdering Facility: [facility] Address: [address] [place] [address] Performed By: #### 5 0190-8, 2276-01, ####[facility] LABCLIA [id number] [address] [address] [place] Ferritin SerPl-mCncon 2022 Ferritin [Mass/Vol] 145.0 ng/mL Normal 14.7-205.1 [facility] Comment on above: Order Comment: Speci men Type: BLOOD SPECIMENOrdering Facility: [facility] Address: [address] [place] [address] Performed By: #### 5 0190-8, 2276-01, ####[facility] LABCLIA [id number] [place] [address] [place] Iron and Iron binding capaci ty panelon 08-06-2023 Iron [Mass/Vol] 89 ug/dL Normal 41-186 [facility] Comment on above: Order Comment: Speci men Type: BLOOD SPECIMENOrdering Facility: [facility] Address: [address] [place] [address] Performed By: #### 5 0190-8, 2276-01, ####[facility] LABIA [id number] [place] [address] [place] Iron binding capacity [Mass/Vol] 234 ug/dL Normal 232-386 [facility] Comment on above: Order Comment: Speci men Type: BLOOD SPECIMENOrdering Facility: [facility] Address: [address] [place] [address] Performed By: #### 5 0190-8, 2276-01, ####[facility] LABIA [id number] [place] [id number] [place] Iron/TIBC [Molar ratio] 38.0 % Normal 15.0-57.0 [facility] Comment on above: Order Comment: Speci men Type: BLOOD SPECIMENOrdering Facility: [facility] Address: [address] [place] [address] Performed By: #### 5 0190-8, 2276-01, ####[facility] LABCLIA [id number] [place] [address] [place] Retics #on 08-06-2023 Reticulocytes (Bld) [#/Vol] 0.79122 10*3/uL Normal 0.018-0.100 [facility] Comment on above: Order Comment: Speci men Type: BLOOD SPECIMENOrdering Facility: [facility] Address: [address] [place] [address] Performed By: #### 1 4196-0, 77834-7 ####[facility] LABIA [id number] [place] [address] [place] Reticulocytes (Bld) [#/Vol]o n 08-06-2023 Reticulocytes/100 RBC (Bld) 1.2 % Normal 0.4-2.0 [facility] Comment on above: Order Comment: Speci men Type: BLOOD SPECIMENOrdering Facility: [facility] Address: [address] [place] [address] Performed By: #### 1 4196-0, 21532-5 ####[facility] LABIA [id number] [address] [place] CNPDanni 07-25-2023 ANTONYN Telephone (WILLY) EDISON ALBARRAN ([id number]) 1945 F Date Time Provider Department 07/25/23 PEPPER BAIN During your visit today, we recorded the following information about you: Pepper Bain LISW 07/25/2023 12:49 PM Signed YULY contacted granddaughter/POA at request of provider to arrange SW visit. Pt's son, granddaughter's father, last week and they are requesting assistance with resources. Christofer agreeable to virtual visit on 07/25 at 2:00 pm. Request sent to Zafar Tena. YULY Harper Grace, LISW 07/25/2023 12:49 PM Signed HY[employer]OELECT[employer] MECH[employer]IC received call from christofer. No message left. HYDROELECTRIC MECHANIC returned call and reached voicemail. Provided contact information. YULY Harper Grace, LISW 07/25/2023 12:52 PM Signed Incoming call from grand daughter, January, requesting to cancel [employer] virtual visit this afternoon. January reported pt cannot afford co-pay. HYDROELECTRIC MECHANIC to send community resources via [employer] message and remain available to assist as needed. YULY Harper Allergies As of Date: 07/25/2023 Noted Allergy Reaction BACTRIM (SULFAMETHOXAZOLE-TRIMETH* 14 - Other: See Comments Comments: Unknown. CEPHALEXIN 11/22/2014 14 - Other: See Comments Comments: Unknown. CITALOPRAM 01/05/2020 7 - Swelling Comments: Throat swelled CYMBALTA (DULOXETINE) 01/05/2020 14 - Other: See Comments Comments: Made her feel groggy. Date Reviewed: 07/15/2023 Reviewed by: Marty Barkley LPN - Fully Assessed Prescriptions as of 07/25/2023 - WALKER ROLLATOR SEAT WITH 6 WHEELS - RED Any color is fine and with a basket if available. Dx: Z91.81, M54.40, R20.8, M46.062 and R26.81 - gabapentin (NEURONTIN) 300 mg capsule Take 1 capsule by mouth daily at bedtime for 180 days. - donepezil (ARICEPT) 10 mg tablet Take 1 tablet by mouth daily at bedtime. - QUEtiapine (SEROQUEL) 25 mg tablet Take 0.5 tablets by mouth daily at bedtime. - cyanocobalamin (VITAMIN B-12) 500 mcg tablet Take 1 tablet by mouth once daily. - gabapentin (NEURONTIN) 300 mg capsule Take 300 mg by mouth daily at bedtime. - omeprazole (PRILOSEC) 40 mg capsule Take 1 capsule by mouth twice daily. Take 30-60 minutes before breakfast and dinner on an empty stomach. - potassium chloride SR (MICRO-K) 10 mEq CR capsule Take 2 capsules by mouth once daily. - atorvastatin (LIPITOR) 40 mg tablet Take 1 tablet by mouth daily at bedtime. For cholesterol. - FLUoxetine (PROZAC) 40 mg capsule Take 1 capsule by mouth once daily. - levothyroxine (SYNTHROID) 50 mcg tablet Take 1 tablet by mouth daily before breakfast. Sat-Sat and none on Saturday, Saturday - mirabegron (MYRBETRIQ) 50 mg Tb24 Take 1 tablet by mouth once daily. - cyclobenzaprine (FLEXERIL) 10 mg tablet Take 1 tablet by mouth every 8 hours as needed for muscle spasm (or pain). - wheat dextrin (BENEFIBER HEALTHY SHAPE) 5 gram/7.4 gram powd Take 2 teaspoonsful by mouth once daily. - amino acids (AMINO ACID ORAL) Take 3 g by mouth once daily. Peptide powder - VITAMIN E ACETATE ORAL Take 10 mg by mouth once daily. - ascorbic acid (VITAMIN C ORAL) Take 90 mg by mouth once daily. - Melatonin 5 mg cap Take 1 capsule by mouth daily at bedtime. - aspirin, enteric coated (ADULT LOW DOSE ASPIRIN) 81 mg EC tablet Take 1 tablet by mouth once daily. Facility-Administered Medications as of 07/25/2023 - menthol-cetylpyridinium 1 Lozenge (CEPACOL LOZENGES) Problem List As Of Date 07/25/2023 Noted Resolved Osteoporosis [M81.0] 05/26/2015 Essential hypertension [I10] 2015 Mixed hyperlipidemia [E78.2] 2015 Hypothyroidism (acquired) [E03.9] 2015 Ex-smoker [Z87.891] 2015 Pain in joint, multiple sites [M25.50] 12/07/2015 Colon cancer screening [Z12.11] 12/07/2015 09/18/2019 Elevated fasting blood sugar [R73.01] 12/07/2015 09/18/2019 Hematuria [R31.9] 12/14/2015 09/18/2019 Bilateral carotid artery disease (HCC) [I77.9] 12/20/2015 09/18/2019 Decreased sensation of lower extremity [R20.8] 01/04/2016 Spinal stenosis, lumbar region, with neurogenic*01/23/2016 Urgency of urination [R39.15] 06/13/2016 Well adult exam [Z00.00] 12/26/2016 09/18/2019 Chronic bilateral low back pain with sciatica [*12/26/2016 Pain in both hands [M79.641, M79.642] 12/26/2016 09/18/2019 Encounter for screening mammogram for breast ca*12/26/2017 09/18/2019 Medicare annual wellness visit, subsequent [Z00*12/26/2017 Recurrent major depressive disorder, in remissi*07/01/2018 Medication management [Z79.899] 12/31/2018 Bilateral carotid artery stenosis [I65.23] 12/20/2015 Hematuria [R31.9] 12/14/2015 Moderate aortic insufficiency [I35.1] 01/19/2020 Agitation [R45.1] 02/02/2020 Lymphocytic colitis [K52.832] 05/16/2020 Sinus bradycardia [R00.1] 12/21/2020 Protein deficiency (HCC) [E46] 01/24/2021 09/20/2022 Essential tr (more content not included)... Normal [facility] Basic metabolic 2000 panelon 03-03-2023 Anion gap [Moles/Vol] 9 mmol/L Normal 9-18 [facility] Comment on above: Order Comment: Speci men Type: URINE SPECIMEN [facility] Address: [address] [place] [address] Performed By: #### 2 4356-8 #### [facility] CLIA [id number] [address] [place] [address] [place] Calcium [Mass/Vol] 7.7 mg/dL Low 8.5-10.2 [facility] Comment on above: Order Comment: Speci men Type: URINE SPECIMEN [facility] Address: [address] [place] [address] Performed By: #### 2 4356-8 #### [facility] CLIA [id number] [address] [place] [address] [place] Chloride [Moles/Vol] 113 mmol/L High 97-105 [facility] Comment on above: Order Comment: Speci men Type: URINE SPECIMEN [facility] Address: [address] [place] [address] Performed By: #### 2 4356-8 #### [facility] CLIA [id number] [address] [place] [address] [place] CO2 [Moles/Vol] 20 mmol/L Low 22-30 [facility] Comment on above: Order Comment: Speci men Type: URINE SPECIMEN Ordering Facility: [facility] Address: [address] [place] [address] Performed By: #### 2 4356-8 #### [facility] CLIA [id number] [address] [place] Creatinine [Mass/Vol] 0.76 mg/dL Normal 0.58-0.96 [facility] Comment on above: Order Comment: Speci men Type: URINE SPECIMEN Ordering Facility: [facility] Address: [address] [place] [address] Performed By: #### 2 4356-8 #### [facility] CLIA [id number] [address] [place] [address] [place] ESTIMATED GLOMERULAR FILTRATION RATE 80 mL/min/1.73m??? Normal >=60 [facility] Comment on above: Order Comment: Speci men Type: URINE SPECIMEN Ordering Facility: [facility] Address: [address] [place] [address] Result Comment: Britney mated Glomerular Filtration Rate (eGFR) is calculated using the 2020 CKD-EPI creatinine equation. This equation utilizes serum creatinine, sex, and age as parameters. The creatinine assay has traceable calibration to isotope dilution-mass spectrometry. Refer to KDIGO guidelines for clinical interpretation. In patients with unstable renal function, e.g. those with acute kidney injury, the eGFR may not accurately reflect actual GFR. Performed By: #### 2 4356-8 #### [facility] CLIA [id number] [address] [place] [id number] [place] Glucose [Mass/Vol] 78 mg/dL Normal 74-99 [facility] Comment on above: Order Comment: Speci men Type: URINE SPECIMEN Ordering Facility: [facility] Address: [address] [place] [address] Result Comment: The [place] Diabetes Association (ADA) provides guidance for cutoff values for fasting glucose and random glucose. The ADA defines fasting as no caloric intake for at least 8 hours. Fasting plasma glucose results between 100 to 125 mg/dL indicate increased risk for diabetes (prediabetes). Fasting plasma glucose results greater than or equal to 126 mg/dL meet the criteria for diagnosis of diabetes. In the absence of unequivocal hyperglycemia, results should be confirmed by repeat testing. In a patient with classic symptoms of hyperglycemia or hyperglycemic crisis, random plasma glucose results greater than or equal to 200 mg/dL meet the criteria for diagnosis of diabetes. Reference: Standards of Medical Care in Diabetes 2016, [place] Diabetes Association. Diabetes Care. 2016.39(Suppl 1). Performed By: #### 2 4356-8 #### [email or web address] [facility] CLIA [id number] [address] [place] [address] [place] Potassium [Moles/Vol] 4.2 mmol/L Normal 3.7-5.1 [facility] Comment on above: Order Comment: Speci men Type: URINE SPECIMEN Ordering Facility: [facility] Address: [address] [place] [address] Performed By: #### 2 4356-8 #### [email or web address] [facility] CLIA [id number] [address] [place] [address] [place] Sodium [Moles/Vol] 142 mmol/L Normal 136-144 [facility] Comment on above: Order Comment: Speci men Type: URINE SPECIMEN Ordering Facility: [facility] Address: [address] [place], [place] [address] Performed By: #### 2 4356-8 #### [email or web address] [facility] CLIA [id number] [address] [place] [address] [place] Urea nitrogen [Mass/Vol] 4 mg/dL Low 7-21 [facility] Comment on above: Order Comment: Speci men Type: URINE SPECIMEN Ordering Facility: [facility] Address: [address] [address] Performed By: #### 2 4356-8 #### [facility] CLIA [id number] [address] [place] [address] CBC panel Auto (Bld)on 03-03 Erythrocyte distribution width (RBC) [Ratio] 13.7 % Normal 11.5-15.0 [facility] Comment on above: Order Comment: Speci men Type: URINE SPECIMEN Ordering Facility: [facility] Address: [address] [place] [address] Performed By: #### 2 4356-8 #### [facility] CLIA [id number] [address] [place] [address] [place] Hematocrit (Bld) [Volume fraction] 32.8 % Low 36.0-46.0 [facility] Comment on above: Order Comment: Speci men Type: URINE SPECIMEN Ordering Facility: [facility] Address: [address] [place] [address] Performed By: #### 2 4356-8 #### [email or web address] CLIA [id number] [address] [place] [address] [place] Hemoglobin (Bld) [Mass/Vol] 10.7 g/dL Low 11.5-15.5 [facility] Comment on above: Order Comment: Speci men Type: URINE SPECIMEN Ordering Facility: [facility] Address: [address] [place] [address] Performed By: #### 2 4356-8 #### [facility] CLIA [id number] [address] [place] [address] [place] MCH (RBC) [Entitic mass] 30.0 pg Normal 26.0-34.0 [facility] Comment on above: Order Comment: Speci men Type: URINE SPECIMEN Ordering Facility: [facility] Address: [address] [place] [address] Performed By: #### 2 4356-8 #### [facility] CLIA [id number] [address] [place], [place] [address] [place] [address] STATES [facility] MCHC (RBC) [Mass/Vol] 32.6 g/dL Normal 30.5-36.0 [facility] Comment on above: Order Comment: Speci men Type: URINE SPECIMEN Ordering Facility: [facility] Address: [address] [place] [address] Performed By: #### 2 4356-8 #### [facility] CLIA [id number] [address] [place] [address] [place] MCV (RBC) [Entitic vol] 91.9 fL Normal 80.0-100.0 [facility] Comment on above: Order Comment: Speci men Type: URINE SPECIMEN Ordering Facility: [facility] Address: [address] [place] [address] Performed By: #### 2 4356-8 #### [facility] CLIA [id number] [address] [place] Platelet mean volume (Bld) [Entitic vol] 9.4 fL Normal 9.0-12.7 [facility] Comment on above: Order Comment: Speci men Type: URINE SPECIMEN Ordering Facility: [facility] Address: [address] [place] [address] Performed By: #### 2 4356-8 #### [facility] CLIA [id number] [address] [place] Platelets (Bld) [#/Vol] 184 10*3/uL Normal 150-400 [facility] Comment on above: Order Comment: Speci men Type: URINE SPECIMEN Ordering Facility: [facility] Address: [address] [place] [address] Performed By: #### 2 4356-8 #### [facility] CLIA [id number] [address] [place] [address] [place] RBC (Bld) [#/Vol] 3.57 10*6/uL Low 3.90-5.20 [facility] Comment on above: Order Comment: Speci men Type: URINE SPECIMEN Ordering Facility: [facility] Address: [place] [address] Performed By: #### 2 4356-8 #### [facility] CLIA [id number] [address] [id number] [facility] WBC (Bld) [#/Vol] 4.83 10*3/uL Normal 3.70-11.00 [facility] Comment on above: Order Comment: Speci men Type: URINE SPECIMEN Ordering Facility: [facility] Address: [address] [place] [id number] Performed By: #### 2 4356-8 #### [facility] CLIA [id number] [address] [place] [address] [facility] CNDSon 03-03-2023 CNDS HNO ID: [id number] Author: Angelina Goodman APRN.CLIENT SERVICES REPRESENTATIVE Service: Hospital Medicine Author Type: Nurse Practitioner Type: Discharge Summary Filed: 03/03/2023 10:47 AM Note Text: Attestation signed by Ladi Cuellar MD at 03/07/2023 10:53 AM [facility] STAFF PHYSICIAN NOTE OF PERSONAL INVOLVEMENT IN CARE I have reviewed the discharge summary obtained and documented by the nurse practitioner Principal Problem: Hypokalemia POA: Yes Active Problems: Essential hypertension POA: Yes Mixed hyperlipidemia POA: Yes Hypothyroidism (acquired) POA: Yes Stage 3a chronic kidney disease (HCC) POA: Yes 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 * Ladi Cuellar MD, [facility] Staff,Dept of Hospital Medicine March 07, 2023 10:53 AM Pager:Click here to page DISCHARGE SUMMARY PATIENT NAME: Edison Albarran Code Status: Not on file Date: 03/03/2023 Highest Readmission Risk Score: 8 The 30 day readmissions risk score is derived from an internally validated risk model which evaluates patient level characteristics, utilization history, medication orders and lab results up until the day of discharge. Patients with a score of 40 or above are considered highest risk for readmission. Specific patient level drivers will be listed at the bottom of the summary. Additional Provider to Provider Information: Edison Albarran is a 77 year old female presented with complaints of feeling unsteady, with her neighbor. She lives at home with her son. States that over the last few days she has felt unsteady on her feet with more nausea. She states that she is prescribed potassium supplementation as a liquid medicine but states that she is not able to keep it down. She states that she is concerned her potassium is low as she has felt unsteady and off previously with low potassium levels.The neighbor states that the patient's son had informed her that patient had a fall a few days ago but details of this are not known.Patient has no headache, lightheadedness pain or numbness or weakness to extremities. Is on aspirin, no other anticoagulation. Potassium was replaced during hospitalization and is normalized at time of discharge. PT/OT evaluated patient and recommended SNF at discharge. This was discussed with both patient and son, due to patients baseline diagnosis of dementia. SNF was declined and home health care was arranged. Extensive conversation with son about PT recommendations and safety concerns for patient going home, patient and son admit about discharge home requesting [facility]. Active Hospital Problems as of 03/03/2023 Noted - [facility] Essential hypertension 2015 - Present Yes Mixed hyperlipidemia 2015 - Present Yes Hypothyroidism (acquired) 2015 - Present Yes Stage 3a chronic kidney disease (HCC) 09/20/2022 - Present Yes Type 2 diabetes mellitus with stage 3a chronic kidney disease (HCC) 09/20/2022 - Present Yes Dementia without behavioral disturbance (HCC) 12/20/2022 - Present Yes * (Principal) Hypokalemia 03/02/2023 - Present Yes Failure to thrive in adult 03/02/2023 - Present Unknown Resolved Hospital Problems as of 03/03/2023 None Transitions of Care Critical Issues: SPECIALIST FOLLOW-UP: PCP LABS AND PROCEDURES PENDING AT DISCHARGE: No pending results. FOLLOW-UP APPOINTMENTS ALREADY SCHEDULED WITH A [facility] PROVIDER: Future Appointments Date Time Provider Department Center 03/21/2023 9:40 AM Mayank Quintanilla APRN.CLIENT SERVICES REPRESENTATIVE [facility] [place] 04/08/2023 1:00 PM Karlos Hill MD [facility] Stro 04/10/2023 9:30 AM Aubrie Davila MD COUNTS INCLUDE 234 BEDS AT [facility] Mn U Bldg 11/15/2023 3:00 PM Colten Oro PA-C [facility] [place] ALLERGIES Allergen Reactions Bactrim [Sulfametho* Other: See Comments Unknown. Cephalexin Other: See Comments Unknown. Citalopram Swelling Throat swelled Cymbalta [Duloxetin* Other: See Comments Made her feel groggy. DISCHARGE MEDICATION: Current Discharge Medication List START taking these medications potassium chloride (K-TAB) 20 mEq Take 20 mEq by mouth once daily. Qty: 60 tablet Refills: 0 CONTINUE these medications which have NOT CHANGED atorvastatin (LIPITOR) 40 mg Take 40 mg by mouth daily at bedtime. class= HTML_HHS > For cholesterol. Qty: 90 tablet Refills: 1 FLUoxetine (PROzac) 40 mg Take 40 mg by mouth once daily. Qty: 30 capsule Refills: 5 levothyroxine (SYNTHROID) 50 mcg Take 50 mcg by mouth daily before breakfast. class= HTML_HHS > Mon-Fri and none on Saturday, Saturday Qty: 90 tablet Refills: 1 donepezil (ARICEPT) 10 mg Take 10 mg by mouth daily at bedtime. Q (more content not included)... Normal [facility] Basic metabolic 2000 panelon 03-02-2023 Anion gap [Moles/Vol] 8 mmol/L Low 9-18 [facility] Comment on above: Order Comment: Speci men Type: URINE SPECIMEN Ordering Facility: [facility] Address: [address] [place] [address] Performed By: #### 2 4356-8 #### [facility] CLIA [id number] [address] [place] [address] [place] Calcium [Mass/Vol] 8.3 mg/dL Low 8.5-10.2 [facility] Comment on above: Order Comment: Speci men Type: URINE SPECIMEN Ordering Facility: [facility] Address: [address] [place] [address] Performed By: #### 2 4356-8 #### [facility] CLIA [id number] [address] [place] [address] [place] Chloride [Moles/Vol] 109 mmol/L High 97-105 [facility] Comment on above: Order Comment: Speci men Type: URINE SPECIMEN Ordering Facility: [facility] Address: [address] [place] [address] Performed By: #### 2 4356-8 #### [facility] CLIA [id number] [address] [place] [address] [place] CO2 [Moles/Vol] 26 mmol/L Normal 22-30 [facility] Comment on above: Order Comment: Speci men Type: URINE SPECIMEN Ordering Facility: [facility] Address: [address] [place] [address] Performed By: #### 2 4356-8 #### [facility] CLIA [id number] [address] [place] [address] [place] Creatinine [Mass/Vol] 0.80 mg/dL Normal 0.58-0.96 [facility] Comment on above: Order Comment: Speci men Type: URINE SPECIMEN Ordering Facility: [facility] Address: [address] [place] [address] Performed By: #### 2 4356-8 #### [facility] CLIA [id number] [address] [place] [address] [place] ESTIMATED GLOMERULAR FILTRATION RATE 76 mL/min/1.73m??? Normal >=60 [facility] Comment on above: Order Comment: Deshawn ramirez Type: URINE SPECIMEN Ordering Facility: [facility] Address: [address] [place] [address] Result Comment: Britney mated Glomerular Filtration Rate (eGFR) is calculated using the 2020 CKD-EPI creatinine equation. This equation utilizes serum creatinine, sex, and age as parameters. The creatinine assay has traceable calibration to isotope dilution-mass spectrometry. Refer to KDIGO guidelines for clinical interpretation. In patients with unstable renal function, e.g. those with acute kidney injury, the eGFR may not accurately reflect actual GFR. Performed By: #### 2 4356-8 #### [facility] CLIA [id number] [address] [place], [place] [id number] [place] Glucose [Mass/Vol] 88 mg/dL Normal 74-99 [facility] Comment on above: Order Comment: Deshawn ramirez Type: URINE SPECIMEN Ordering Facility: [facility] Address: [address] [place] [place] [address] Result Comment: The [place] Diabetes Association (ADA) provides guidance for cutoff values for fasting glucose and random glucose. The ADA defines fasting as no caloric intake for at least 8 hours. Fasting plasma glucose results between 100 to 125 mg/dL indicate increased risk for diabetes (prediabetes). Fasting plasma glucose results greater than or equal to 126 mg/dL meet the criteria for diagnosis of diabetes. In the absence of unequivocal hyperglycemia, results should be confirmed by repeat testing. In a patient with classic symptoms of hyperglycemia or hyperglycemic crisis, random plasma glucose results greater than or equal to 200 mg/dL meet the criteria for diagnosis of diabetes. Reference: Standards of Medical Care in Diabetes 2016, [place] [employer]. Diabetes Care. 2016.39(Suppl 1). Performed By: #### 2 4356-8 #### [facility] CLIA [id number] [address] [place] [address] [place] Potassium [Moles/Vol] 3.1 mmol/L Low 3.7-5.1 [facility] Comment on above: Order Comment: Deshawn ramirez Type: URINE SPECIMEN Ordering Facility: [facility] Address: [address] Performed By: #### 2 4356-8 #### [facility] CLIA [id number] [address] [place] [address] [place] Sodium [Moles/Vol] 143 mmol/L Normal 136-144 [facility] Comment on above: Order Comment: Speci men Type: URINE SPECIMEN Ordering Facility: [facility] Address: [address] [place] [address] Performed By: #### 2 4356-8 #### [facility] CLIA [id number] [address] [place] [address] [place] Urea nitrogen [Mass/Vol] 4 mg/dL Low 7-21 [facility] Comment on above: Order Comment: Speci men Type: URINE SPECIMEN Ordering Facility: [facility] Address: [address] [place] [address] Performed By: #### 2 4356-8 #### [facility] CLIA [id number] [address] [place] [address] [place] Anion gap [Moles/Vol] 12 mmol/L Normal 9-18 [facility] Comment on above: Order Comment: Speci men Type: BLOOD SPECIMEN Ordering Facility: [facility] Address: [address] [place] [address] Performed By: #### 2 4321-2, #### [facility] CLIA [id number] [address] [place] [address] [place] Calcium [Mass/Vol] 8.9 mg/dL Normal 8.5-10.2 [facility] Comment on above: Order Comment: Speci men Type: BLOOD SPECIMEN Ordering Facility: [facility] Address: [address] [place] [address] Performed By: #### 2 4321-2, #### [facility] CLIA [id number] [address] [place] [address] [place] Chloride [Moles/Vol] 101 mmol/L Normal 97-105 [facility] Comment on above: Order Comment: Speci men Type: BLOOD SPECIMEN Ordering Facility: [facility] Address: [address] [place] [address] Performed By: #### 2 4320-11, #### [email or web address] CLIA [id number] [address] [place] [address] [place] CO2 [Moles/Vol] 26 mmol/L Normal 22-30 [facility] Comment on above: Order Comment: Speci men Type: BLOOD SPECIMEN Ordering Facility: [facility] Address: [address] [place] [address] Performed By: #### 2 4320-11, #### [email or web address] CLIA [id number] [address] [place] [address] [place] Creatinine [Mass/Vol] 0.88 mg/dL Normal 0.58-0.96 [facility] Comment on above: Order Comment: Speci men Type: BLOOD SPECIMEN Ordering Facility: [facility] Address: [address] [place] [address] Performed By: #### 2 4320-11, #### [facility] CLIA [id number] [address] [place] [address] [place] ESTIMATED GLOMERULAR FILTRATION RATE 67 mL/min/1.73m??? Normal >=60 [facility] Comment on above: Order Comment: Speci men Type: BLOOD SPECIMEN Ordering Facility: [facility] Address: [address] [place] [address] Result Comment: Britney mated Glomerular Filtration Rate (eGFR) is calculated using the 2020 CKD-EPI creatinine equation. This equation utilizes serum creatinine, sex, and age as parameters. The creatinine assay has traceable calibration to isotope dilution-mass spectrometry. Refer to KDIGO guidelines for clinical interpretation. In patients with unstable renal function, e.g. those with acute kidney injury, the eGFR may not accurately reflect actual GFR. Performed By: #### 2 4320-11, #### [facility] CLIA [id number] [address] [place] [address] [place] Glucose [Mass/Vol] 105 mg/dL High 74-99 [facility] Comment on above: Order Comment: Deshawn ramirez Type: BLOOD SPECIMEN Ordering Facility: [facility] Address: [address] [place] [address] Result Comment: The [place] Diabetes Association (ADA) provides guidance for cutoff values for fasting glucose and random glucose. The ADA defines fasting as no caloric intake for at least 8 hours. Fasting plasma glucose results between 100 to 125 mg/dL indicate increased risk for diabetes (prediabetes). Fasting plasma glucose results greater than or equal to 126 mg/dL meet the criteria for diagnosis of diabetes. In the absence of unequivocal hyperglycemia, results should be confirmed by repeat testing. In a patient with classic symptoms of hyperglycemia or hyperglycemic crisis, random plasma glucose results greater than or equal to 200 mg/dL meet the criteria for diagnosis of diabetes. Reference: Standards of Medical Care in Diabetes 2016, [place] [employer]. Diabetes Care. 2016.39(Suppl 1). Performed By: #### 2 4320-11, #### [facility] CLIA [id number] [address] [place] [address] [place] Potassium [Moles/Vol] 2.7 mmol/L Low 3.7-5.1 [facility] Comment on above: Order Comment: Deshawn ramirez Type: BLOOD SPECIMEN Ordering Facility: [facility] Address: [address] [place] [address] Performed By: #### 2 4320-11, #### [facility] CLIA [id number] [address] [place] [address] [place] Sodium [Moles/Vol] 139 mmol/L Normal 136-144 [facility] Comment on above: Order Comment: Deshawn ramirez Type: BLOOD SPECIMEN Ordering Facility: [facility] Address: [address] [place] [address] Performed By: #### 2 4320-11, #### [facility] CLIA [id number] [address] [place] [address] [place] Urea nitrogen [Mass/Vol] 4 mg/dL Low 7-21 [facility] Comment on above: Order Comment: Speci men Type: BLOOD SPECIMEN Ordering Facility: [facility] Address: [address] [place] [place] [address] Performed By: #### 2 4321-2, 08298-1 #### [facility] CLIA [id number] [address] [place], [place] [address] [place] [address] [place] CBC W Auto Differential pane l (Bld)on 03-02-2023 Basophils (Bld) [#/Vol] 10*3/uL Normal <0.11 [facility] Comment on above: Order Comment: Speci men Type: URINE SPECIMEN Ordering Facility: [facility] Address: [address] [place] [address] Performed By: #### 2 4356-8 #### [facility] CLIA [id number] [address] [place] Basophils/100 WBC (Bld) 0.2 % Normal [facility] Comment on above: Order Comment: Speci men Type: URINE SPECIMEN Ordering Facility: [facility] Address: [address] [place] [address] Performed By: #### 2 4356-8 #### [facility] CLIA [id number] [address] [place] [address] Differential cell count method Nom (Bld) Auto Normal [facility] Comment on above: Order Comment: Speci men Type: URINE SPECIMEN Ordering Facility: [facility] Address: [address] [place] [place] [address] Performed By: #### 2 4356-8 #### [facility] CLIA [id number] [address] [place] [address] [place] Eosinophils (Bld) [#/Vol] 0.03 10*3/uL Normal <0.46 [facility] Comment on above: Order Comment: Speci men Type: URINE SPECIMEN Ordering Facility: [facility] Address: [address] [place] [address] Performed By: #### 2 4356-8 #### [facility] CLIA [id number] [address] [place] [address] [place] Eosinophils/100 WBC (Bld) 0.5 % Normal [facility] Comment on above: Order Comment: Speci men Type: URINE SPECIMEN Ordering Facility: [facility] Address: [address] [place] [address] Performed By: #### 2 4356-8 #### [facility] CLIA [id number] [address] [place] [address] [place] Erythrocyte distribution width (RBC) [Ratio] 13.3 % Normal 11.5-15.0 [facility] Comment on above: Order Comment: Speci men Type: URINE SPECIMEN Ordering Facility: [facility] Address: [address] [place] [address] Performed By: #### 2 4356-8 #### [facility] CLIA [id number] [address] [place] [address] [place] Hematocrit (Bld) [Volume fraction] 34.8 % Low 36.0-46.0 [facility] Comment on above: Order Comment: Speci men Type: URINE SPECIMEN Ordering Facility: [facility] Address: [address] [place] [address] Performed By: #### 2 4356-8 #### [facility] CLIA [id number] [address] [place] [id number] [place] Hemoglobin (Bld) [Mass/Vol] 11.6 g/dL Normal 11.5-15.5 [facility] Comment on above: Order Comment: Speci men Type: URINE SPECIMEN Ordering Facility: [facility] Address: [address] [place] [address] Performed By: #### 2 4356-8 #### [facility] CLIA [id number] [address] [place] [id number] [place] Immature granulocytes (Bld) [#/Vol] 10*3/uL Normal <0.10 [facility] Comment on above: Order Comment: Speci men Type: URINE SPECIMEN Ordering Facility: [facility] Address: [address] [place] [address] Performed By: #### 2 4356-8 #### [facility] CLIA [id number] [address] [place] [address] Immature granulocytes/100 WBC (Bld) 0.2 % Normal [facility] Comment on above: Order Comment: Speci men Type: URINE SPECIMEN Ordering Facility: [facility] Address: [address] [place] [address] Performed By: #### 2 4356-8 #### [facility] CLIA [id number] [address] [place] [address] [place] Lymphocytes (Bld) [#/Vol] 1.54 10*3/uL Normal 1.00-4.00 [facility] Comment on above: Order Comment: Speci men Type: URINE SPECIMEN Ordering Facility: [facility] Address: [address] [place] [address] Performed By: #### 2 4356-8 #### [facility] CLIA [id number] [address] [place] [address] Lymphocytes/100 WBC (Bld) 24.0 % Normal [facility] Comment on above: Order Comment: Speci men Type: URINE SPECIMEN Ordering Facility: [facility] Address: [address] [place] [address] Performed By: #### 2 4356-8 #### [facility] CLIA [id number] [address] [place] [address] [place] MCH (RBC) [Entitic mass] 29.8 pg Normal 26.0-34.0 [facility] Comment on above: Order Comment: Speci men Type: URINE SPECIMEN Ordering Facility: [facility] Address: [address] [place] [address] Performed By: #### 2 4356-8 #### [facility] CLIA [id number] [address] [place] [address] [place] MCHC (RBC) [Mass/Vol] 33.3 g/dL Normal 30.5-36.0 [facility] Comment on above: Order Comment: Speci men Type: URINE SPECIMEN Ordering Facility: [facility] Address: [address] [place] [address] Performed By: #### 2 4356-8 #### [facility] CLIA [id number] [address] [place] [address] [place] MCV (RBC) [Entitic vol] 89.5 fL Normal 80.0-100.0 [facility] Comment on above: Order Comment: Speci men Type: URINE SPECIMEN Ordering Facility: [facility] Address: [address] [place] [address] Performed By: #### 2 4356-8 #### [facility] CLIA [id number] [address] [place] [address] [place] Monocytes (Bld) [#/Vol] 0.56 10*3/uL Normal <0.87 [facility] Comment on above: Order Comment: Speci men Type: URINE SPECIMEN Ordering Facility: [facility] Address: [address] [place] [address] Performed By: #### 2 4356-8 #### [facility] CLIA [id number] [address] [place] [address] [place] Monocytes/100 WBC (Bld) 8.7 % Normal [facility] Comment on above: Order Comment: Speci men Type: URINE SPECIMEN Ordering Facility: [facility] Address: [address] [place] [address] Performed By: #### 2 4356-8 #### [facility] CLIA [id number] [address] [place] [address] [place] Neutrophils (Bld) [#/Vol] 4.28 10*3/uL Normal 1.45-7.50 [facility] Comment on above: Order Comment: Speci men Type: URINE SPECIMEN Ordering Facility: [facility] Address: [address] [place] [address] Performed By: #### 2 4356-8 #### [facility] CLIA [id number] [address] [place] [address] [place] Neutrophils/100 WBC (Bld) 66.4 % Normal [facility] Comment on above: Order Comment: Speci men Type: URINE SPECIMEN Ordering Facility: [facility] Address: [address] [place] [address] Performed By: #### 2 4356-8 #### [facility] CLIA [id number] [address] [place] [address] [place] Nucleated RBC (Bld) [#/Vol] Normal [facility] Comment on above: Order Comment: Speci men Type: URINE SPECIMEN Ordering Facility: [facility] Address: [address] [place] [address] Performed By: #### 2 4356-8 #### [facility] CLIA [id number] [address] [place] [id number] [place] Nucleated RBC/100 WBC (Bld) [Ratio] Normal [facility] Comment on above: Order Comment: Speci men Type: URINE SPECIMEN Ordering Facility: [facility] Address: [address] [place] [address] Performed By: #### 2 4356-8 #### [facility] CLIA [id number] [address] [place] [address] [place] Platelet mean volume (Bld) [Entitic vol] 9.2 fL Normal 9.0-12.7 [facility] Comment on above: Order Comment: Speci men Type: URINE SPECIMEN Ordering Facility: [facility] Address: [address] [place] [address] Performed By: #### 2 4356-8 #### [facility] CLIA [id number] [address] [place] [address] [place] Platelets (Bld) [#/Vol] 250 10*3/uL Normal 150-400 [facility] Comment on above: Order Comment: Speci men Type: URINE SPECIMEN Ordering Facility: [facility] Address: [address] [place] [address] Performed By: #### 2 4356-8 #### [facility] CLIA [id number] [address] [place], [place] [id number] [facility] [place] RBC (Bld) [#/Vol] 3.89 10*6/uL Low 3.90-5.20 [facility] Comment on above: Order Comment: Speci men Type: URINE SPECIMEN Ordering Facility: [facility] Address: [place] [address] Performed By: #### 2 4356-8 #### [facility] CLIA [id number] [address] [place] [address] [facility] WBC (Bld) [#/Vol] 6.43 10*3/uL Normal 3.70-11.00 [facility] Comment on above: Order Comment: Speci men Type: URINE SPECIMEN Ordering Facility: [facility] Address: [place] [address] Performed By: #### 2 4356-8 #### [facility] CLIA [id number] [address] [place] [address] [facility] CT BRAIN WO IVCONon 03-02-[address] BRAIN WO IVCON * * *Final Report* * * DATE OF EXAM: Mar 01 2023 11:46PM [facility] [id number] - CT BRAIN WO IVCON / PROCEDURE REASON: Head trauma, moderate-severe * * * * Physician Interpretation * * * * EXAMINATION: CT BRAIN WO IVCON CLINICAL HISTORY: Head trauma TECHNIQUE: Serial axial images without IV contrast were obtained from the vertex to the foramen magnum. MQ: CTBWO_3 CT Radiation dose: Integrated Dose-Length Product (DLP) for this visit = 772.45 mGy*cm CT Dose Reduction Employed: No dose reduction techniques were required COMPARISON: 03/09/2020 RESULT: System Specialist (topogram) images: The patient is edentulous. Post-operative change: None. Acute change: No evidence of an acute infarct or other acute parenchymal process. Hemorrhage: No evidence of acute intracranial hemorrhage. ECASS hemorrhagic transformation score: Not Applicable Mass Lesion / Mass Effect: There is no evidence of an intracranial mass or extraaxial fluid collection. No significant mass effect. Chronic change: Vascular calcifications are present. Mild to moderate low attenuation in the subcortical and periventricular white matter is non-specific, and is commonly attributed to chronic microangiopathic infarcts; the appearance has progressed since the previous examination. Parenchyma: There is mild generalized volume loss. The brain parenchyma is otherwise within normal limits for age. Ventricles: The ventricles are within normal limits of size and configuration for age. Paranasal sinuses and skull base: The visualized paranasal sinuses are grossly clear. The skull base and imaged soft tissues are unremarkable. IMPRESSION: No acute intracranial abnormality. 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 Monogram Maker: RITCHIE Transcribe Date/Time: Mar 02 2023 12:06A Dictated by : ALHAJI ARCE MD This examination was interpreted and the report reviewed and electronically signed by: ALHAJI ARCE MD on Mar 02 2023 12:09AM EST [id number] [facility] ED NOTEon 03-02-2023 ED NOTE HNO ID: [id number] Author: Carleen Chase RN Service: Emergency Medicine Author Type: Registered Nurse Type: ED Notes Filed: 03/02/2023 12:25 AM Note Text: Report called to RN on floor [facility] ED NOTE HNO ID: [id number] Author: Hailey Ang RN Service: Emergency Medicine Author Type: Registered Nurse Type: ED Notes Filed: 03/01/2023 11:17 PM Note Text: [facility] PAGED FOR POSSIBLE ADMIT TO EW Normal [facility] ED PROV NOTEon 03-02-2023 ED PROV NOTE HNO ID: [id number] Author: Anahi Lyon MD Service: Emergency Medicine Author Type: Physician Type: ED Provider Notes Filed: 03/02/2023 3:03 AM Note Text: ED Provider Note Patient Name: Edison Albarran : 1945 SERVICE DATE: 03/01/23 History Patient presents with: Fall Dizziness: Pt states she has been dizzy on and off recently, fell this morning. Unsure if she hit her head or lost consciousness or not HPI 69-year-old female who has history as below, history of type 2 diabetes, stage III chronic kidney disease, dementia with cognitive impairment, chronic abdominal pain with GERD symptoms documented through multiple office visits with primary care coming in with complaints of feeling unsteady. Patient actually arrives to the ER with her neighbor. She lives at home with her son. States that over the last few days she has felt unsteady on her feet with more nausea. She states that she is prescribed potassium supplementation as a liquid medicine but states that she is not able to keep it down. She states that she is concerned her potassium is low as she has felt unsteady and off previously with low potassium levels. The neighbor states that the patient's son had informed her that patient had a fall a few days ago but details of this are not known. Patient has no headache, lightheadedness pain or numbness or weakness to extremities. Is on aspirin, no other anticoagulation. PAST MEDICAL HISTORY Diagnosis Date - Advance directive discussed with patient 03/21/202203/2022 - Agitation 02/02/2020 - Aneurysm of right subclavian artery (HCC) - Bilateral carotid artery disease (HCC) 12/20/2015 US 12/2015: 20-40% on Rt and 40-60% on left. US 01/2017 unchanged. - Chronic bilateral low back pain with sciatica 12/26/2016 - Constipation 07/09/2018 after starting lipitor - Decreased sensation of lower extremity 01/04/2016 - Essential hypertension 2015 - Essential tremor 09/18/2021 - Ex-smoker 2015 1/2-1 PPD since early 49, quit January 2018 - Hematuria 12/14/2015 Urology w/u neg. - Hypothyroidism (acquired) 2015 - Living will on file 03/21/2022 DPAJim Peña (son) - Lymphocytic colitis 05/16/2020 Possibly Zoloft related. - Mediastinal lymphadenopathy 08/04/2018 Prominent Mediastinal lymphadenopathy noted on CT 08/01/18. CT 01/05/2019 no mediastinal lymphadenopathy - Mixed hyperlipidemia 2015 - Moderate aortic insufficiency 01/19/[address] Cordoba - Osteoporosis 05/26/2015 - Pain in both hands 12/26/2016 - Pain in joint, multiple sites 12/07/2015 On neurontin - Recurrent major depressive disorder, in remission ([facility]) 07/01/2018 - Spinal stenosis, lumbar region, with neurogenic claudication 01/23/2016 - Stage 3a chronic kidney disease ([facility]) 09/20/2022 - Type 2 diabetes mellitus with stage 3a chronic kidney disease ([facility]) 09/20/2022 - Type 2 diabetes mellitus without complication, without long-term current use of insulin ([facility]) 12/07/2015 - Urgency of urination 06/13/2016 PAST SURGICAL HISTORY Procedure Laterality Date - 2D ECHO (EXEP) 09/2020 EF=64%, Mild Noe dysf and La enlargment, 2+ AR - CARPAL TUNNEL RIGHT WRIST - COLONOSCOPY 2010 repeat 10 yrs - COLONOSCOPY FLX DX W/COLLJ SPEC WHEN PFRMD 04/21/2020 Colonoscopy - CORRECTION OF BUNION Left - ESOPHAGOGASTRODUODENOSCOPY TRANSORAL DIAGNOSTIC 04/21/2020 EGD - FECAL OCCULT BLOOD TEST 01/01/2018 negative - HYSTERECTOMY HX 1970 one ovary removed - LEXISCAN STRESS TEST 11/21/2020 negative - PAST SURGICAL HISTORY OF 1971 appendectomy - PAST SURGICAL HISTORY OF 1987 breast lump, benign - STRESS TEST 07/09/2016 WNL - TUMOR REMOVAL (SPECIFY LOCATION) HX 2001 stomach FAMILY HISTORY Problem Relation Age of Onset - Breast Cancer Mother over 50 - Hypertension Mother - Lipids Mother - Osteoporosis Mother - Thyroid Mother - Cancer Father stomach - Cancer Brother lung - Alzheimer's Disease Brother dementia - Diabetes Brother Social History Tobacco Use - Smoking status: Some Days Types: Cigarettes - Smokeless tobacco: Never - Tobacco comments: Roughly one pack per week Vaping Use - Vaping Use: Never used Substance and Sexual Activity - Alcohol use: Not Currently - Drug use: Never - Sexual activity: Not Currently ALLERGIES Allergen Reactions - Bactrim [Sulfametho* Other: See Comments Unknown. - Cephalexin Other: See Comments Unknown. - Citalopram Swelling Throat swelled - Cymbalta [Duloxetin* Other: See Comments Made her feel groggy. Review of Systems Per HPI Physical Exam Vitals BP Pulse Temp Temp src Resp SpO2 Weight Height 03/01/23213003/01/23212503/01/23212503/01/23212503/01/23212503/01/23212503/01/232125 -- 176/77 77 36.4 ?C (97.5 ?F) Tympanic 20 99 % 44.9 kg (99 lb) Physical Exam Patient is thin, somewhat frail. Overall, non-toxic and in no obvious (more content not included)... Normal [facility] HISTORY PHYSICALon HISTORY PHYSICAL HNO ID: [id number] Author: Krishna Ley MD Service: ? Author Type: Physician Type: HANDP Filed: 03/02/2023 12:41 AM Note Text: Edison Albarran [id number] Date: 03/02/2023 Vital Signs: BP 156/62 Pulse 62 Temp 36.4 ?C (97.5 ?F) (Tympanic) Resp 13 Wt 44.9 kg (99 lb) SpO2 98% BMI 18.71 kg/m? Brief History: 77 year old female with history of lymphocytic colitis was on budosenide before which was discontinued on potassium supplements for hypokalemia which she has not been tolerating even in liquid form because of vomiting, history of HTN DL essential tremor, hypothyroidism, PVD moderate AR paroxysmal Afib on ASA presents to the ED after a fall. History obtained from patient via video camera. Patient tells me has been feeling dizzy and no equilibrium and nauseaus today. After taking dog out lost her balance inside her home fell striking her head on [place]. No obvious traumatic injuries. Has been very weak. Doesn't think she can walk for unsteadiness. K 2.7 and Mag 1.5. has 1-2 soft bowel movements daily. Not eating well has no bottom teeth and dentures hurt her so doesn't use them and has just been drinking proteinshakes and liquids. Lost 8 lbs past month. Denies fever. Her son now lives with her Focused Exam: Lethargic no distress Finger to nose intact Grossly moving extremities No pallor jaundice or cyanosis ROS: negative except for HPI Assessment: Fall: like weakness/deconditioning from hypokalemia. CT brain no bleed. Will obtain brain MRI r/o posterior circulation pathology given Afib history. Consult PT social work. Check orthostatics Failure to thrive: due to dentition, possibly related to underlying colitis. Consult dietetion Hypokalemia hypomagnesemia: due to GI losses and decrease PO intake and not tolerating K supplement. Replace Lymphocytic colitis: taken off budosenide, f/u GI Chronic medical problems including HTN hypothyroidism, essential tremor paroxysmal Afib, PVD, moderate AR DL; continue usual meds DVT ppx: SCD boots for now because of head trauma Full code Krishna Ley MD 03/02/2023 12:[address] [facility] Magnesium SerPl-mCncon 03-02 Magnesium [Mass/Vol] 2.2 mg/dL Normal 1.7-2.3 [facility] Comment on above: Order Comment: Speci men Type: URINE SPECIMEN Ordering Facility: [facility] Address: [address] [place] [address] Performed By: #### 2 4356-8 #### [facility] CLIA [id number] [address] [place], [place] [id number] [facility] Magnesium [Mass/Vol] 1.5 mg/dL Low 1.7-2.3 [facility] Comment on above: Order Comment: Speci men Type: BLOOD SPECIMEN Ordering Facility: [facility] Address: [address] [place] [address] Performed By: #### 2 4321-2, 77891-1 #### [facility] CLIA [id number] [address] [place], [place] [id number] [facility] NURSING PROGon 03-02-2023 NURSING PROG HNO ID: [id number] Author: Meena Clarke RN Service: Nursing Author Type: Registered Nurse Type: Nursing Progress Note Filed: 03/02/2023 3:05 PM Note Text: IV potassium hung and infusing without difficulty. After 5-10 minutes, pt c/o burning @ IV site IV rate decreased for comfort. Pt's arm elevated on pillow AND ice pack applied to arm for comfort. Will continue to monitor Normal [facility] NURSING PROG HNO ID: [id number] Author: Meena Clarke RN Service: Nursing Author Type: Registered Nurse Type: Nursing Progress Note Filed: 03/02/2023 3:00 PM Note Text: Pt with K 3.1 today. PO K ordered, but pt refuses stating, I cannot swallow that big pill! Offered to cut pill in half and give in applesauce or pudding, but pt still refuses. Offered to dissolve in water or juice, pt states, I've tried all those things before at home before, why do you think I don't take it? HUNTER Alfaro notified of above. New orders received for IV potassium X3 bags. Normal [facility] THERAPY NTon 03-02-2023 THERAPY NT HNO ID: [id number] Author: Yelena Galvan PT Service: Physical Therapy Author Type: Physical Therapist Type: Therapy (PT/OT/Speech/Resp) Filed: 03/02/2023 1:33 PM Note Text: Summary: PT OBS evaluation Physical Therapy Evaluation SERVICE DATE: 03/02/2023 SERVICE TIME: 1140 to 1210 ROOM: [place] [address] Recommended Discharge Disposition: Subacute/SNF Recommended Discharge Disposition Comments: SNF due to inability of son and friend to assist 24/ with all care, fall risk, and cognition. May require placement, but will need to discuss with son and family. Patient agreeable to only 1 week of home health PT if discharged. Recommended Discharge Disposition Due to: Patient requires an active, intensive rehabilitation therapy program due to:, Patient requires daily, facility-based rehabilitation from at least one discipline due to:, caregiver training needs, decline in functional status requiring daily skilled care, motor planning deficits, new / worsened cognitive deficits related to current diagnosis, ongoing intervention of multiple therapy disciplines Anticipated Discharge Needs: Family Training, Physical Assist at Home, Supervision at Home, Home Modifications Physical Assist at Home for: Ambulation, Finances, Cleaning, Laundry, Meals, Safety, Stairs, Self Care, Shopping, Transportation Supervision at Home due to: Decreased safety awareness, Impaired cognition Recommended Discharge Equipment: To Be Determined, Wheeled Walker (Ramp to enter the home) PT 6 Clicks Score: 18 Precautions/Activity Restrictions: Fall Risk, Impulsive with Activity, Lines/Tubes/Drains Precaution/Activity Restriction Comments: IV and telemetry, fall risk, bed/chair alarm, dizziness with any standing Current Hospital Course: patient is a 77year old female presenting from home to [place] ED as observation status for fall at home hitting the sliding glass door on 02/28 and hypokalemia. Patient reporting, It made me feel like my brain shut off. I was wrapped in curtains and couldn't get up so my neighbor came and got me. Patient at this time unsafe to return home without 29/04 supervision and assistance due to fall risk, dizziness with any standing, and BLE weakness. Reason for Hospital Admission: Hypokalemia Relevant Past Medical History: hypokalemia, aneurysm, constipation, LBP with sciatic, ex-smoker, HTN, stenosis, colitis, CKDIII Response to Therapy Interventions: Cognitive Deficits, Low Activity Tolerance, Multiple Ongoing Medical Issues Assessment Comments: Patient is a 77 year old female presenting to [place] ED for hypokalemia and falls with continued significant fall risk, patient not tolerating much of the vestibular evaluation this date (will continue to follow up) and patient declining use of FWW or cane for improved safety during ambulation. Due to patient's living situation and cognition, may benefit from SNF stay to improve balance and fall risk and also discuss options for home going vs. placement. Continued Skilled Needs Due to: Functional Mobility/Skill Impairments, Safety Concerns Physical Therapy Problem List: Safety Deficits, Impaired Self Care, Decreased Activity Tolerance, Decreased Strength, Functional Mobility Impairment, Balance Impaired Treatment Interventions: Education, Self Care / Home Management, Energy Conservation Training, Joint Mobility, Strengthening, Functional Mobility Training, Balance Training, Neuromuscular Re-education, Pain Management Plan for Next Visit: Gait Training (with walker) Home Environment Patient Lives With: Family (in a ranch home with basement) Assistance Available: PRN (from son he lives at my house but there are times where I don't see him for 3+ days and my car is gone so I call the police on him. ) Entry To Home: Stairs, With Rail Number Of Stairs Into Home: 3 Number Of Stairs To Bed/Bath: 0 Tub/Shower Type: Tub/shower combo Laundry: Main floor, patient completes hers and son's, reports he wouldn't ever do my laundry. Equipment Owned: Cane, Walker- Wheeled ( walker may be in my basement ) Prior Functional Level: Within Functional Limits, History of Falls, Required Assistance Assistance Required With: Safety Prior Functional Level Comments: Per patient report (may be a poor historian), she reports she was independent with ambulation in the home without a device (reports she cannot safely maneuver a cane), 1 fall leading to admission, however, history of falls, ind with ADLs and IADLs. Drives. Due to her weakness in LEs, has not been safe to do the steps to the basement. cannot eat much- no lower teeth Only drinks protein shakes and soft cooked hamburgers. Rarely cooks. Does her and son's laundry. History of vertigo. Patient Report: I want to go h (more content not included)... Normal [facility] Urinalysis complete panel (U )on 03-02-2023 Bacteria LM.HPF (Urine sed) [#/Area] Few Abnormal None Seen [facility] Comment on above: Order Comment: Speci men Type: URINE SPECIMEN Ordering Facility: [facility] Address: [address] [place] [address] Performed By: #### 2 4356-8 #### [facility] CLIA [id number] [address] [place] [address] [place] Bilirubin Ql (U) Negative Normal Negative [facility] Comment on above: Order Comment: Speci men Type: URINE SPECIMEN Ordering Facility: [facility] Address: [address] [place] [address] Performed By: #### 2 4356-8 #### [facility] CLIA [id number] [address] [place] [address] [place] Clarity (Unsp spec) Clear Normal Clear [facility] Comment on above: Order Comment: Speci men Type: URINE SPECIMEN Ordering Facility: [facility] Address: [address] [place] [address] Performed By: #### 2 4356-8 #### [facility] CLIA [id number] [address] [id number] [facility] [place] Color (U) Yellow Normal Yellow [facility] Comment on above: Order Comment: Speci men Type: URINE SPECIMEN Ordering Facility: [facility] Address: [address] [place] [address] Performed By: #### 2 4356-8 #### [facility] CLIA [id number] [address] [id number] [place] Epithelial cells LM.HPF (Urine sed) [#/Area] Few Normal [facility] Comment on above: Order Comment: Speci men Type: URINE SPECIMEN Ordering Facility: [facility] Address: [address] [place] [address] Performed By: #### 2 4356-8 #### [facility] CLIA [id number] [address] [place], [place] [id number] [facility] [place] Glucose Test strip (U) [Mass/Vol] Negative Normal Negative [facility] Comment on above: Order Comment: Speci men Type: URINE SPECIMEN Ordering Facility: [facility] Address: [address] [place] [address] Performed By: #### 2 4356-8 #### [facility] CLIA [id number] [address] [id number] [place] Hemoglobin Ql (U) Trace Abnormal Negative [facility] Comment on above: Order Comment: Speci men Type: URINE SPECIMEN Ordering Facility: [facility] Address: [address] [address] Performed By: #### 2 4356-8 #### [facility] CLIA [id number] [address] [place] Ketones Ql (U) Negative Normal Negative [facility] Comment on above: Order Comment: Speci men Type: URINE SPECIMEN Ordering Facility: [facility] Address: [address] [place] [address] Performed By: #### 2 4356-8 #### [facility] CLIA [id number] [address] [place], [place] [address] [place] [address] Leukocyte esterase Test strip Ql (U) 1+ Abnormal Negative [facility] Comment on above: Order Comment: Speci men Type: URINE SPECIMEN Ordering Facility: [facility] Address: [address] [place] [address] Performed By: #### 2 4356-8 #### [facility] CLIA [id number] [address] [place], [place] [id number] [place] [address] STATES [facility] Nitrite Ql (U) Negative Normal Negative [facility] Comment on above: Order Comment: Speci men Type: URINE SPECIMEN Ordering Facility: [facility] Address: [address] [place] [address] Performed By: #### 2 4356-8 #### [facility] CLIA [id number] [address] [place] pH (U) 6.0 [pH] Normal 5.0-8.0 [facility] Comment on above: Order Comment: Speci men Type: URINE SPECIMEN Ordering Facility: [facility] Address: [address] [place] [address] Performed By: #### 2 4356-8 #### [facility] CLIA [id number] [address] Protein (U) [Mass/Vol] Negative Normal Negative [facility] Comment on above: Order Comment: Speci men Type: URINE SPECIMEN Ordering Facility: [facility] Address: [address] [place] [address] Performed By: #### 2 4356-8 #### [facility] CLIA [id number] [address] RBC LM.HPF (Urine sed) [#/Area] 0-3 /HPF Normal 0-3 /HPF [facility] Comment on above: Order Comment: Speci men Type: URINE SPECIMEN Ordering Facility: [facility] Address: [address] [place] [address] Performed By: #### 2 4356-8 #### [facility] CLIA [id number] [address] [place] [address] Specific gravity (U) [Rel density] <=1.005 Low 1.005-1.030 [facility] Comment on above: Order Comment: Speci men Type: URINE SPECIMEN Ordering Facility: [facility] Address: [address] [place] [address] Performed By: #### 2 4356-8 #### [facility] CLIA [id number] [address] [place] [address] Urobilinogen Ql (U) 0.2 EU/dL Normal 0.2-1.0 EU/dL [facility] Comment on above: Order Comment: Speci men Type: URINE SPECIMEN Ordering Facility: [facility] Address: [address] [place] [address] Performed By: #### 2 4356-8 #### [facility] CLIA [id number] [address] [place] [address] WBC LM.HPF (Urine sed) [#/Area] 0-5 /HPF Normal 0-5 /HPF [facility] Comment on above: Order Comment: Speci men Type: URINE SPECIMEN Ordering Facility: [facility] Address: [address] [place] [address] Performed By: #### 2 4356-8 #### [facility] CLIA [id number] [address] [place] [address] [place] XR CHEST 1V FRONTALon 2022 XR CHEST 1V FRONTAL * * *Final Report* * * DATE OF EXAM: Mar 01 2023 11:08PM LDX 5290 - XR CHEST 1V FRONTAL / PROCEDURE REASON: Shortness of breath * * * * Physician Interpretation * * * * EXAMINATION: XR CHEST 1V FRONTAL HISTORY: Shortness of breath COMPARISON: 11/30/2022 FINDINGS: Lungs: No focal opacities. Emphysematous changes. Mediastinum: Unremarkable Pleura: No pleural effusion or pneumothorax Other: Unremarkable IMPRESSION: No focal opacity Monogram Maker: PSCB Transcribe Date/Time: Mar 01 2023 11:48P Dictated by : CARLOS LANDIN MD This examination was interpreted and the report reviewed and electronically signed by: CARLOS LANDIN MD on Mar 01 2023 11:49PM EST [id number] Normal [facility] EKGon 03-01-2023 Electrocardiogram Ventricular Rate : 5 5 BPM Atrial Rate : 55 BPM P-R Interval : 178 ms QRS Duration : 78 ms Q-T Interval : 274 ms QTC Calculation(Bazett) : 262 ms Calculated P [place] : 81 degrees Calculated R [place] : 72 degrees Calculated T [place] : -[address] & T WAVE ABNORMALITY, CONSIDER INFERIOR ISCHEMIA ABNORMAL ECG WHEN COMPARED WITH ECG OF 30-NOV-2022 13:41, NONSPECIFIC T WAVE ABNORMALITY, WORSE IN INFERIOR LEADS T WAVE INVERSION NOW EVIDENT IN ANTERIOR LEADS QT HAS SHORTENED Confirmed by MD FLORES VINAYAK ([id number]) on 03/05/2023 11:04:37 AM NAME : EDISON ALBARRAN PID : [id number] : 1945 Gender : Female Race : ORD : Procedure Date : Mar 01 2023 21:54:29 Edit Date : Mar 05 2023 11:04:38 Diagnosis: SINUS BRADYCARDIA ST & T WAVE ABNORMALITY, CONSIDER INFERIOR ISCHEMIA ABNORMAL ECG WHEN COMPARED WITH ECG OF 30-NOV-2022 13:41, NONSPECIFIC T WAVE ABNORMALITY, WORSE IN INFERIOR LEADS T WAVE INVERSION NOW EVIDENT IN ANTERIOR LEADS QT HAS SHORTENED Confirmed by MD FLORES VINAYAK ([id number]) on 03/05/2023 11:04:37 AM Test Reason : Location : 150 : [place] 2 Overread By : MD FLORES VINAYAK Edited By : MD FLORES VINAYAK Referred By : Camron Acquired by : AVIVA JOHNSTON [facility] MRI BRAIN WO IVCONon 023 [facility] SURGICAL PATHOLOGYOrdered By : Isabella Lee on 12-12-2022 Case Report Surgical Pathology R eport Case: [id number] Authorizing Provider: Karlos Hill MD Collected: 12/11/2022 12:05 PM Ordering Location: Ambulatory Surgery Received: 12/11/2022 03:17 PM Pathologist: Isabella Lee MD Specimen: STOMACH BIOPSY, gastric biopsy [facility] Work Phone: FINAL DIAGNOSIS y5zcdUDvNBGewQRjMZRv NVxhbnNp BNFjaKRiY4XghmsdLGqvXG4wFB5d oVmawNAxfIWlRPNhMvNmi9btm491 iTAge1tdHJNLqikvnVn0zIbtM87e t4H4TvrzH71ecTIbOHT7HJCpGGEx vRTwULDoQMT6SVVpjQRxB8fzGPHe OS2cosgqYBiaSCvzADEokXN4BUDf wHXcV0WkPXVlORoyCTBlqmu5SpHg Br8phRIjfTxlEMrhSBOuSTWwYCah HLRdHaSnB4FreRLheCaeSfollJK3 YerqpR2sGZ3Qf3T3tZ7zevKqDtEf hSdyiFqfPRW0dBCcN1KclECxAsJh uQXvz6Eax7o9kEJLDLrqmAqkCYFm FiUnK0EszJprOVPhVN6deQzxorZr f9PcNV80tvSdFUW0cYYoS4UqiHAg NoQymXXaw8Mrz0g6fNQuGESuvSc2 JHFnGYN2aa2fVNBffLexcX9tFH5S UGgcvWz2ZXCwe6JcIWTqmDGoHwFf iZDwFFS0nZ5skKZxsbhrchorhRMb k76eis17sZopVBYvsHOocqbcA0ge YXJ9 [facility] Work Phone: Gross Description y2xzwCDhBNPsdHPAKLZk OEGdOS0r uVxbhOw6mUehBGLhdhU6tURfGTpr c2ixCEG8m1wlxhLFBvxpAGRgKGdq HPGjzqlhGiW5CBxrIQXbqwmpGMy5 WAweCGRkcWN0XVXloPQqR1MrZFRv HU1zece4SQI4IVavFJYkKhM1NFIj YaBgUngbGSf6WARxcmO5Hmg3XATl IJComGZur5I1DUdqktptUOIfxQPf C313BCbjq8UwgKApNYsvtNTzEWXA UcrrVttdnQfdc6MfzVWwPZwsBLZc EDXkARywgrkwFKr3NIYfOEzqwNEn IJ1wgZjoQwiglZpxs1EifNHsFFhj HORhRXYtOZyoBEIjMB9IIkAmCTV0 BIx6YdB0PzH8KSv8SUDVGdVzLjWd ZxrfNhn8DcToCZt6PPs0ABbAHsE4 TFf0RpJ3RoEdAJR0SVcjSMgmgIGa IFxcZiBBcmlhbCBcXGZsIFxcbmN9 OTWmFSmgMEKpKTUKF33DR0bsEdnX UFNZXHBhciANClxlcGljTmVzdERv YzEgDQpcbHRycGFyXGxpbjBccmlu YPGTCvgeeDKrnPjzvpIdHWDuV6Tw yxDiZAgzEONlcw0thVjtOMHgQDYt cGf8aHOwSHEdiXQiCCPlz8RxyAHu DHWcy5A9XDBmg4L5YZSzP0jxOGin mCxgCdB3sbVfBkoclOMlIcHgrKTj QsEfM71dLSTcoFNwdHnzt8QgnYu9 zRKvCGysCH5sZHRfSSWwAWO2ED9d QRMxrhQXVefgQUHnFBoMmq6smrZg nCHynX6lwXtrwcRmDWCvb7CaYXKd OJXfI1vilnHcIN5qWQRtpC3rPrtd XQOmEMFUaBXlsWQsHZGpIpeeH7db znOsEZ6qZAIBPKR1RYJ4WWwjWURx GDpjjSJcJP3VJfMORMFdYnG5WpAv SpAqAYD7PEFkMA9heISsPG6QPRAg jRSMBAR8AW2mZMg2LOtiZEObU0Xa I5UyrzUkaFWiCWDniiDnx8xiDDG4 FQChsTIuwJJqMgYlNfnlCJC5XLYd UQvmUI8XWCXkQUL4KMxxjX97cLPq MN7VKNNuMWuuXMDzAORzkiU9MBVn dYGtDTB4UK5sfJzinJPzdqjoclK7 IA0KfQ== [facility] Work Phone: Performing Lab t9alyNFjNJSdlNZwVeNj MDAwXGFu p8tjOSSbtLYfUfIeDuUqWyHsHiqu rVZyMGFvOqQej6uca929bJHro0ga OOTlFpC2yTVcDHYomPZhR979DKHp DRiwc5hts8PiNYZvsXYdf0C3TAOB qlfteGv2rCgoB37wj1O6LgutB9hl HCSgBIPoL9HrXA6uAZAkUkc0DXD7 WRF5PBUjDMCtF1DdFJ7hSTCdeJFm RFa9l8mvxCdsHOZsODA7y2czEOxd vsGyQD5xlg1tiAt3w5eeafAtXOJa BBYhlXTAFMCtX1BmsLhkTf2ezDn4 yRqwVeopGMK4Bav9WL2gzp82drg8 xXxwRNSuzapjMpN5NRdvZYUbmqjy NUh4SOwiLPAftBF3DFEzrBKsG2Hh ANUsQZ7ifpo0XMF5HTanTQZdJtU6 VBYvnTBpHKAaiKpyDVtrp784TUK4 GkKfJH4wZ3Jtl2Z5hF7hrFRoBURn wCOmRsCsDTVymd2zmXPmOErav2Gz SDM2ztD6tYHanBZjQUVcZW33Srzi k1DeNlosc2FkS55nkSM6ACsdo3pk DI2hCjA1rhHaZYjtc6bsvO7nEfJ3 XQuqZA4qGO5xMLMikC4nvsqnLEEx GzCxzxldQUYfbSiqolDjYq0cjMpq LCK4WDmgR8aniG8pAfE2SQrkV4ey oL9wFYe2PAkyqUE2MMMzjI7uGP3a yzkpb9vrYErvQJbdKHMlkuY9ccL6 VOKanJVqF8GudN5nKJJrOE3hkylm e2zsYLB8VSrwKWTfWJW1XdBcKOCw h4Cwdyc2YvTue1XfcPXaXByiI56v d461CTBykwEsB5usqSKvgybtoONg mopeENlxhsS7IJHlLFWnBIqgPZOd XGZzMjJcbGFuZzEwMzNcaGljaFxm RMuiKlFhZERfRMexB2hzOxHkPyCc TwDYiEOprf7slHntBLbktBYkfZCe hCS9cP6pTSWqppOwtu5uVQMjiKKC tLB5ALfitaSjS3zhwyudQUIyEEKh y19qFKbbNzX0LAVbM6IcFBZbXb0g IZhlLfErO3p8b19jLZJVFRV2FHFl JsVjSDOIDUfQPxRyImIiDPe3ZVv6 NIKrwlvhHUWuwPbsyK9yMiVxGqQk VeztOD7mXBDtM2cuwRZrTLHxFPIm C3dgCcIwkM4gyBldJBfzSqChBgEn DpqloDUpmHJALTRurrP3e7D3XGmv bGFpblxmMVxmczIyXGxhbmcxMDMz XNklL9suAqAcGHQlvHqkYClbd8Pz ZJOvUUOzQrQzAAlpTFZ5o2W4UVMg HLKtgGQEdUE3BMMTZoKtTHLsyi9= [facility] Work Phone: [facility] Work Phone: EGD Study observation Narrat chapin 12-11-2022 [facility] Gastrointestinal Endoscopy Patient Name: Edison Albarran Procedure Date: 12/11/2022 11:48 AM Date of : 1945 Admit Type: Outpatient Age: 77 Gender: Female Note Status: Finalized Procedure: Upper GI endoscopy Indications: Dysphagia Providers: Karlos Hill MD Patient Profile: This is a 77 year old female. Refer to note in patient chart for documentation of history and physical. Referring Physician: Karlos Hill MD (Referring MD) Medicines: Monitored Anesthesia Care Complications: No immediate complications. Requesting Provider: Procedure: Pre-Anesthesia Assessment: - Prior to the procedure, a History and Physical was performed, and patient medications and allergies were reviewed. The patient's tolerance of previous anesthesia was also reviewed. The risks and benefits of the procedure and the sedation options and risks were discussed with the patient. All questions were answered, and informed consent was obtained. Prior Anticoagulants: The patient has taken no anticoagulant or antiplatelet agents except for aspirin. ASA Grade Assessment: III - A patient with severe systemic disease. After reviewing the risks and benefits, the patient was deemed in satisfactory condition to undergo the procedure. After obtaining informed consent, the endoscope was passed under direct vision. Throughout the procedure, the patient's blood pressure, pulse, and oxygen saturations were monitored continuously. The Endoscope was introduced through the mouth, and advanced to the second part of duodenum. The upper GI endoscopy was accomplished without difficulty. The patient tolerated the procedure well. Moderate Sedation: MAC anesthesia was administered by the anesthesia team. Findings: One benign-appearing, intrinsic mild stenosis was found in the proximal esophagus, just distal to the cricopharyngeus. This stenosis measured 1.5 cm (inner diameter) x less than one cm (in length). The stenosis was traversed. The scope was withdrawn. Dilation was performed with a Golden dilator with mild resistance at 56 Fr and 58 Fr and moderate resistance at 60 Fr. The dilation site was examined following endoscope reinsertion and showed moderate mucosal disruption and complete resolution of luminal narrowing. The Z-line was regular and was found 33 cm from the incisors. The exam of the esophagus was otherwise normal. Patchy erythematous mucosa was found in the gastric antrum. The exam of the stomach was otherwise normal. Biopsies were taken with a cold forceps in the gastric body, at the incisura and in the gastric antrum for histology. Verification of patient identification for the specimen was done by the physician and nurse. The pathology specimen was placed into Bottle A. The examined duodenum was normal. The exam was otherwise without abnormality. Impression: - Benign-appearing proximal esophageal stenosis. Dilated. - Erythematous mucosa in the antrum. Biopsied. - The examination was otherwise normal. Estimated Blood Loss: Estimated blood loss was minimal. Recommendation: - Patient has a contact number available for emergencies. The signs and symptoms of potential delayed complications were discussed with the patient. Return to normal activities tomorrow. Written discharge instructions were provided to the patient. - Soft diet today. - Continue present medications. - Repeat upper endoscopy PRN for retreatment. - Await pathology results. - The findings and recommendations were discussed with the patient. Attending Participation: I personally performed the entire procedure. Scope In: 12:03:35 PM Scope Out: 12:16:52 PM MD Karlos Nelson MD 12/11/2022 12:23:19 PM This report has been signed electronically by Karlos Hill MD Number of Addenda: 0 Note Initiated On: 12/11/2022 11:48 AM PROVATION [facility] Radiology Study observation (narrative) [facility] CBC W Auto Differential pane l (Bld)on 11-30-2022 Basophils (Bld) [#/Vol] 10*3/uL Normal <0.11 [facility] Comment on above: Order Comment: Speci men Type: URINE SPECIMEN Ordering Facility: [facility] Address: [facility] [place] [address] Performed By: #### 2 4356-8 #### [facility] CLIA [id number] [address] [place] [address] [place] Basophils/100 WBC (Bld) 0.2 % Normal [facility] Comment on above: Order Comment: Speci men Type: URINE SPECIMEN Ordering Facility: [facility] Address: [address] [place] [address] Performed By: #### 2 4356-8 #### [facility] CLIA [id number] [address] Differential cell count method Nom (Bld) Auto Normal [facility] Comment on above: Order Comment: Speci men Type: URINE SPECIMEN Ordering Facility: [facility] Address: [address] [place] [address] Performed By: #### 2 4356-8 #### [facility] CLIA [id number] [address] [place] [address] [place] Eosinophils (Bld) [#/Vol] 0.06 10*3/uL Normal <0.46 [facility] Comment on above: Order Comment: Speci men Type: URINE SPECIMEN Ordering Facility: [facility] Address: [address] [place] [address] Performed By: #### 2 4356-8 #### [facility] CLIA [id number] [address] [place] [address] Eosinophils/100 WBC (Bld) 0.7 % Normal [facility] Comment on above: Order Comment: Speci men Type: URINE SPECIMEN Ordering Facility: [facility] Address: [address] [place] [address] Performed By: #### 2 4356-8 #### [facility] CLIA [id number] [address] Erythrocyte distribution width (RBC) [Ratio] 13.7 % Normal 11.5-15.0 [facility] Comment on above: Order Comment: Speci men Type: URINE SPECIMEN Ordering Facility: [facility] Address: [address] [place] [address] Performed By: #### 2 4356-8 #### [facility] CLIA [id number] [address] [place] Hematocrit (Bld) [Volume fraction] 37.4 % Normal 36.0-46.0 [facility] Comment on above: Order Comment: Speci men Type: URINE SPECIMEN Ordering Facility: [facility] Address: [address] [place] [address] Performed By: #### 2 4356-8 #### [facility] CLIA [id number] [address] [place] [address] [place] Hemoglobin (Bld) [Mass/Vol] 12.3 g/dL Normal 11.5-15.5 [facility] Comment on above: Order Comment: Speci men Type: URINE SPECIMEN Ordering Facility: [facility] Address: [address] [place] [address] Performed By: #### 2 4356-8 #### [facility] CLIA [id number] [address] [place] [address] [place] Immature granulocytes (Bld) [#/Vol] 10*3/uL Normal <0.10 [facility] Comment on above: Order Comment: Speci men Type: URINE SPECIMEN Ordering Facility: [facility] Address: [address] [place] [address] Performed By: #### 2 4356-8 #### [facility] CLIA [id number] [address] [place] [address] [place] Immature granulocytes/100 WBC (Bld) 0.1 % Normal [facility] Comment on above: Order Comment: Speci men Type: URINE SPECIMEN Ordering Facility: [facility] Address: [address] [place] [address] Performed By: #### 2 4356-8 #### [facility] CLIA [id number] [address] [place] [address] [place] Lymphocytes (Bld) [#/Vol] 1.59 10*3/uL Normal 1.00-4.00 [facility] Comment on above: Order Comment: Speci men Type: URINE SPECIMEN Ordering Facility: [facility] Address: [address] [place] [address] Performed By: #### 2 4356-8 #### [facility] CLIA [id number] [address] [place] [address] Lymphocytes/100 WBC (Bld) 18.4 % Normal [facility] Comment on above: Order Comment: Speci men Type: URINE SPECIMEN Ordering Facility: [facility] Address: [address] [place] [address] Performed By: #### 2 4356-8 #### [facility] CLIA [id number] [address] [place] [address] STATES [facility] MCH (RBC) [Entitic mass] 29.5 pg Normal 26.0-34.0 [facility] Comment on above: Order Comment: Speci men Type: URINE SPECIMEN Ordering Facility: [facility] Address: [address] [place] [address] Performed By: #### 2 4356-8 #### [facility] CLIA [id number] [address] [place] [address] [place] [facility] MCHC (RBC) [Mass/Vol] 32.9 g/dL Normal 30.5-36.0 [facility] Comment on above: Order Comment: Speci men Type: URINE SPECIMEN Ordering Facility: [facility] Address: [address] [place] [address] Performed By: #### 2 4356-8 #### [facility] CLIA [id number] [address] [place] [address] [place] MCV (RBC) [Entitic vol] 89.7 fL Normal 80.0-100.0 [facility] Comment on above: Order Comment: Speci men Type: URINE SPECIMEN Ordering Facility: [facility] Address: [address] [place] [address] Performed By: #### 2 4356-8 #### [facility] CLIA [id number] [address] [place] [address] [place] Monocytes (Bld) [#/Vol] 0.68 10*3/uL Normal <0.87 [facility] Comment on above: Order Comment: Speci men Type: URINE SPECIMEN Ordering Facility: [facility] Address: [address] [place] [address] Performed By: #### 2 4356-8 #### [facility] CLIA [id number] [address] [place] [address] [place] Monocytes/100 WBC (Bld) 7.9 % Normal [facility] Comment on above: Order Comment: Speci men Type: URINE SPECIMEN Ordering Facility: [facility] Address: [address] [place] [address] Performed By: #### 2 4356-8 #### [facility] CLIA [id number] [address] [place] [address] [place] Neutrophils (Bld) [#/Vol] 6.26 10*3/uL Normal 1.45-7.50 [facility] Comment on above: Order Comment: Speci men Type: URINE SPECIMEN Ordering Facility: [facility] Address: [address] [place] [address] Performed By: #### 2 4356-8 #### [facility] CLIA [id number] [address] [place] [address] [place] Neutrophils/100 WBC (Bld) 72.7 % Normal [facility] Comment on above: Order Comment: Speci men Type: URINE SPECIMEN Ordering Facility: [facility] Address: [address] [place] [address] Performed By: #### 2 4356-8 #### [facility] CLIA [id number] [address] [place] [address] [place] Nucleated RBC (Bld) [#/Vol] Normal [facility] Comment on above: Order Comment: Speci men Type: URINE SPECIMEN Ordering Facility: [facility] Address: [address] [place] [address] Performed By: #### 2 4356-8 #### [facility] CLIA [id number] [address] [place], [place] [address] [place] [address] [place] Nucleated RBC/100 WBC (Bld) [Ratio] Normal [facility] Comment on above: Order Comment: Speci men Type: URINE SPECIMEN Ordering Facility: [facility] Address: [address] [place] [address] Performed By: #### 2 4356-8 #### [facility] CLIA [id number] [address] [place] [address] [place] Platelet mean volume (Bld) [Entitic vol] 9.2 fL Normal 9.0-12.7 [facility] Comment on above: Order Comment: Speci men Type: URINE SPECIMEN Ordering Facility: [facility] Address: [address] [place] [address] Performed By: #### 2 4356-8 #### [facility] CLIA [id number] [address] [place] [address] [place] Platelets (Bld) [#/Vol] 271 10*3/uL Normal 150-400 [facility] Comment on above: Order Comment: Speci men Type: URINE SPECIMEN Ordering Facility: [facility] Address: [address] [place] [address] Performed By: #### 2 4356-8 #### [facility] CLIA [id number] [address] [place] [address] [place] RBC (Bld) [#/Vol] 4.17 10*6/uL Normal 3.90-5.20 [facility] Comment on above: Order Comment: Speci men Type: URINE SPECIMEN Ordering Facility: [facility] Address: [address] [place] [address] Performed By: #### 2 4356-8 #### [facility] CLIA [id number] [address] [place] [address] [place] WBC (Bld) [#/Vol] 8.62 10*3/uL Normal 3.70-11.00 [facility] Comment on above: Order Comment: Speci men Type: URINE SPECIMEN Ordering Facility: [facility] Address: [address] [place] [id number] Performed By: #### 2 4356-8 #### [facility] [place] [id number] [address] [place] [id number] [place] CT ABD/PEL W IVCONon 023 CT ABD/PEL W IVCON * * *Final Report* * * DATE OF EXAM: Nov 30 2022 2:53PM [facility] 0530 - CT ABD/PEL W IVCON / PROCEDURE REASON: Abdominal pain, acute, nonlocalized * * * * Physician Interpretation * * * * EXAMINATION: CT ABDOMEN AND PELVIS WITH IV CONTRAST CLINICAL HISTORY: Generalized abdominal pain, nausea, poor appetite TECHNIQUE: CT of the abdomen and pelvis was performed using standard technique, scanning from just above the dome of the diaphragm to the symphysis pubis. MQ: CTAP_3 Contrast: IV: 100 ml of Omnipaque 350 : ml of CT Radiation dose: Integrated Dose-length product (DLP) for this visit = 254.34 mGy*cm. CT Dose Reduction Employed: Automated exposure control (AEC) COMPARISON: CT abdomen pelvis with contrast 05/10/2021 RESULT: Liver: Fatty appearance. Unchanged subcentimeter hypodensity left lobe. Biliary: No bile duct dilation. Partially contracted gallbladder. Spleen: No mass. No splenomegaly. Pancreas: No mass or duct dilation. Adrenals: No mass. Kidneys: No calculi. No obstructive or other acute abnormality. No suspect lesion. GI tract: No dilation or wall thickening. Appendix not identified. Fluid throughout the colonic lumen including rectosigmoid. Lymph nodes: No change, no suspect adenopathy Mesentery/Peritoneum: No ascites or mass. Retroperitoneum: No mass. Vasculature: Patent central vessels Pelvis: Uterus absent. Urinary bladder unremarkable. Bones/Soft Tissues: No acute osseous abnormality Lower thorax: No significant change. Mild subpleural atelectasis without consolidation. System Specialist (topogram) images: Frontal and lateral images. Less abundant bowel gas. Nonobstructive pattern. No evident consolidations or effusions imaged lower chest. External artifacts are present. IMPRESSION: Distal colonic luminal fluid indicates loose stools not otherwise specific. Normal colonic wall thickness. Distal colonic endoluminal fluid present on the prior CT as well. Mild colitis possible. Similar fatty appearance of the liver. Monogram Maker: PSCB Transcribe Date/Time: Nov 30 2022 2:56P Dictated by : GARFIELD MICHELE MD This examination was interpreted and the report reviewed and electronically signed by: GARFIELD MICHELE MD on Nov 30 2022 3:14PM EST [id number] Normal [facility] Comprehensive metabolic 2000 panelon 11-30-2022 Albumin [Mass/Vol] 4.2 g/dL Normal 3.9-4.9 [facility] Comment on above: Order Comment: Speci men Type: URINE SPECIMEN Ordering Facility: [facility] Address: [address] [place] [address] Performed By: #### 2 4356-8 #### [facility] CLIA [id number] [address] STATES OF [facility] ALP [Catalytic activity/Vol] 112 U/L Normal 34-123 [facility] Comment on above: Order Comment: Speci men Type: URINE SPECIMEN Ordering Facility: [facility] Address: [address] [address] Performed By: #### 2 4356-8 #### [facility] CLIA [id number] [address] [place] ALT With P-5'-P [Catalytic activity/Vol] 16 U/L Normal 7-38 [facility] Comment on above: Order Comment: Speci men Type: URINE SPECIMEN Ordering Facility: [facility] Address: [address] [address] Performed By: #### 2 4356-8 #### [facility] CLIA [id number] [address] OF [facility] Anion gap [Moles/Vol] 9 mmol/L Normal 9-18 [facility] Comment on above: Order Comment: Speci men Type: URINE SPECIMEN Ordering Facility: [facility] Address: [address] [address] Performed By: #### 2 4356-8 #### [facility] CLIA [id number] [address] [place] [address] [place] AST With P-5'-P [Catalytic activity/Vol] 27 U/L Normal 13-35 [facility] Comment on above: Order Comment: Speci men Type: URINE SPECIMEN Ordering Facility: [facility] Address: [address] [place] [address] Performed By: #### 2 4356-8 #### [facility] CLIA [id number] [address] [place] [address] [place] Bilirubin [Mass/Vol] 0.5 mg/dL Normal 0.2-1.3 [facility] Comment on above: Order Comment: Speci men Type: URINE SPECIMEN Ordering Facility: [facility] Address: [address] [place] [address] Performed By: #### 2 4356-8 #### [facility] CLIA [id number] [address] [place] [address] [place] Calcium [Mass/Vol] 9.3 mg/dL Normal 8.5-10.2 [facility] Comment on above: Order Comment: Speci men Type: URINE SPECIMEN Ordering Facility: [facility] Address: [address] [place] [address] Performed By: #### 2 4356-8 #### [facility] CLIA [id number] [address] [place] [address] [place] Chloride [Moles/Vol] 101 mmol/L Normal 97-105 [facility] Comment on above: Order Comment: Speci men Type: URINE SPECIMEN Ordering Facility: [facility] Address: [address] [place] [address] Performed By: #### 2 4356-8 #### [facility] CLIA [id number] [address] [place] [address] [place] CO2 [Moles/Vol] 28 mmol/L Normal 22-30 [facility] Comment on above: Order Comment: Speci men Type: URINE SPECIMEN Ordering Facility: [facility] Address: [address] [address] Performed By: #### 2 4356-8 #### [facility] CLIA [id number] [address] [place] [address] [facility] Creatinine [Mass/Vol] 0.91 mg/dL Normal 0.58-0.96 [facility] Comment on above: Order Comment: Speci men Type: URINE SPECIMEN Ordering Facility: [facility] Address: [address] [address] Performed By: #### 2 4356-8 #### [facility] CLIA [id number] [address] [place], [place] [address] [facility] ESTIMATED GLOMERULAR FILTRATION RATE 65 mL/min/1.73m??? Normal >=60 [facility] Comment on above: Order Comment: Speci men Type: URINE SPECIMEN Ordering Facility: [facility] Address: [address] [address] Result Comment: Britney mated Glomerular Filtration Rate (eGFR) is calculated using the 2020 CKD-EPI creatinine equation. This equation utilizes serum creatinine, sex, and age as parameters. The creatinine assay has traceable calibration to isotope dilution-mass spectrometry. Refer to KDIGO guidelines for clinical interpretation. In patients with unstable renal function, e.g. those with acute kidney injury, the eGFR may not accurately reflect actual GFR. Performed By: #### 2 4356-8 #### [facility] CLIA [id number] [address] [place], [place] [address] [place] Glucose [Mass/Vol] 103 mg/dL High 74-99 [facility] Comment on above: Order Comment: Speci men Type: URINE SPECIMEN Ordering Facility: [facility] Address: [address] [place] [address] Result Comment: The [place] Diabetes Association (ADA) provides guidance for cutoff values for fasting glucose and random glucose. The ADA defines fasting as no caloric intake for at least 8 hours. Fasting plasma glucose results between 100 to 125 mg/dL indicate increased risk for diabetes (prediabetes). Fasting plasma glucose results greater than or equal to 126 mg/dL meet the criteria for diagnosis of diabetes. In the absence of unequivocal hyperglycemia, results should be confirmed by repeat testing. In a patient with classic symptoms of hyperglycemia or hyperglycemic crisis, random plasma glucose results greater than or equal to 200 mg/dL meet the criteria for diagnosis of diabetes. Reference: Standards of Medical Care in Diabetes 2016, [place] [employer] Association. Diabetes Care. 2016.39(Suppl 1). Performed By: #### 2 4356-8 #### [facility] CLIA [id number] [address] [place] [address] [place] Potassium [Moles/Vol] 3.4 mmol/L Low 3.7-5.1 [facility] Comment on above: Order Comment: Speci men Type: URINE SPECIMEN Ordering Facility: [facility] Address: [address] [place] [address] Performed By: #### 2 4356-8 #### [facility] CLIA [id number] [address] [place] [address] [place] Protein [Mass/Vol] 6.4 g/dL Normal 6.3-8.0 [facility] Comment on above: Order Comment: Speci men Type: URINE SPECIMEN Ordering Facility: [facility] Address: [address] [place] [address] Performed By: #### 2 4356-8 #### [facility] CLIA [id number] [address] [place] [address] [place] Sodium [Moles/Vol] 138 mmol/L Normal 136-144 [facility] Comment on above: Order Comment: Speci men Type: URINE SPECIMEN Ordering Facility: [facility] Address: [address] [address] Performed By: #### 2 4356-8 #### [facility] CLIA [id number] [address] [place], [place] [address] [place] Urea nitrogen [Mass/Vol] 10 mg/dL Normal 7-21 [facility] Comment on above: Order Comment: Speci men Type: URINE SPECIMEN Ordering Facility: [facility] Address: [address] [place] [address] Performed By: #### 2 4356-8 #### [facility] CLIA [id number] [address] [place] [address] [facility] ECG COMPLETEon 11-30-2022 ECG COMPLETE Ventricular Rate : 5 8 BPM Atrial Rate : 58 BPM P-R Interval : 172 ms QRS Duration : 70 ms Q-T Interval : 452 ms QTC Calculation(Bazett) : 443 ms Calculated P [place] : 57 degrees Calculated R [place] : 51 degrees Calculated T [place] : 40 degrees SINUS BRADYCARDIA NONSPECIFIC ST ABNORMALITY ABNORMAL ECG WHEN COMPARED WITH ECG OF 10-MAY-2021 20:16, QRS AXIS SHIFTED RIGHT T WAVE INVERSION NO LONGER EVIDENT IN INFERIOR LEADS Confirmed by MD FLORES VINAYAK ([id number]) on 12/06/2022 10:04:59 PM NAME : EDISON ALBARRAN PID : [id number] : 1945 Gender : Female Race : ORD : [id number] Procedure Date : Nov 30 2022 13:41:20 Edit Date : Dec 06 2022 22:04:59 Diagnosis: SINUS BRADYCARDIA NONSPECIFIC ST ABNORMALITY ABNORMAL ECG WHEN COMPARED WITH ECG OF 10-MAY-2021 20:16, QRS AXIS SHIFTED RIGHT T WAVE INVERSION NO LONGER EVIDENT IN INFERIOR LEADS Confirmed by MD FLORES VINAYAK ([id number]) on 12/06/2022 10:04:59 PM Test Reason : Dizziness Location : 150 : [place] [facility] Overread By : MD FLORES VINAYAK Edited By : MD FLORES VINAYAK Referred By : , Acquired by : JESSIE ALLEN [facility] ED NOTEon 11-30-2022 ED NOTE HNO ID: [id number] Author: Oksana Galvan RN Service: Emergency Medicine Author Type: Registered Nurse Type: ED Notes Filed: 11/30/2022 5:13 PM Note Text: Patient is alert and oriented, denies any questions/concerns at this time. Patient verbalizes understanding of d/c instructions and follow up care. Patient ambulates from department at this time with son. [facility] ED NOTE HNO ID: [id number] Author: Oksana Galvan RN Service: Emergency Medicine Author Type: Registered Nurse Type: ED Notes Filed: 11/30/2022 4:44 PM Note Text: Patient ambulates to restroom with steady gait Normal [facility] ED NOTE HNO ID: [id number] Author: Oksana Galvan RN Service: Emergency Medicine Author Type: Registered Nurse Type: ED Notes Filed: 11/30/2022 4:45 PM Note Text: Patient ambulates to restroom with steady gait Normal [facility] ED NOTE HNO ID: [id number] Author: Oksana Galvan RN Service: Emergency Medicine Author Type: Registered Nurse Type: ED Notes Filed: 11/30/2022 4:45 PM Note Text: Patient ambulates to restroom with steady gait Normal [facility] ED PROV NOTEon 11-30-2022 ED PROV NOTE HNO ID: [id number] Author: Steven Jeffries MD Service: Emergency Medicine Author Type: Physician Type: ED Provider Notes Filed: 11/30/2022 5:44 PM Note Text: ED Provider Note Patient Name: Edison Albarran : 1945 SERVICE DATE: 11/30/22 History Patient presents with: Weakness Dizziness This is a 77-year-old female presenting with her son for decreased appetite nausea with food some mild generalized weakness and lightheadedness. Son states that he is concerned with her nutrition status because she eats less than a bird . Patient feels that she hydrates well drinks clear liquids like tea and 7-Up but she does not feel like eating and when she does not eat her stomach feels upset. She states this has been going on for a while but worsened over the past 2 weeks. She has some associated abdominal pain now. No vomiting just nausea. Normal bowel movements. No fevers or chills. No chest pain or shortness of breath. No focal weakness no numbness tingling. No syncope, no falls. Patient is still able to do her activities of daily living. PAST MEDICAL HISTORY Diagnosis Date Advance directive discussed with patient 03/21/202203/2022 Agitation 02/02/2020 Aneurysm of right subclavian artery (HCC) Bilateral carotid artery disease (HCC) 12/20/2015 US 12/2015: 20-40% on Rt and 40-60% on left. US 01/2017 unchanged. Chronic bilateral low back pain with sciatica 12/26/2016 Constipation 07/09/2018 after starting lipitor Decreased sensation of lower extremity 01/04/2016 Essential hypertension 2015 Essential tremor 09/18/2021 Ex-smoker 2015 1/2-1 PPD since early 50's, quit January 2018 Hematuria 12/14/2015 Urology w/u neg. Hypothyroidism (acquired) 2015 Living will on file 03/21/2022 DPA; Casey (son) Lymphocytic colitis 05/16/2020 Possibly Zoloft related. Mediastinal lymphadenopathy 08/04/2018 Prominent Mediastinal lymphadenopathy noted on CT 08/01/18. CT 01/05/2019 no mediastinal lymphadenopathy Mixed hyperlipidemia 2015 Moderate aortic insufficiency 01/19/[address] Cordoba Osteoporosis 05/26/2015 Pain in both hands 12/26/2016 Pain in joint, multiple sites 12/07/2015 On neurontin Recurrent major depressive disorder, in remission (HCC) 07/01/2018 Spinal stenosis, lumbar region, with neurogenic claudication 01/23/2016 Stage 3a chronic kidney disease (HCC) 09/20/2022 Type 2 diabetes mellitus with stage 3a chronic kidney disease (HCC) 09/20/2022 Type 2 diabetes mellitus without complication, without long-term current use of insulin (HCC) 12/07/2015 Urgency of urination 06/13/2016 PAST SURGICAL HISTORY Procedure Laterality Date 2D ECHO (EXEP) 09/2020 EF=64%, Mild Noe dysf and La enlargment, 2+ AR CARPAL TUNNEL RIGHT WRIST COLONOSCOPY 2010 repeat 10 yrs COLONOSCOPY FLX DX W/COLLJ SPEC WHEN PFRMD 04/21/2020 Colonoscopy CORRECTION OF BUNION Left ESOPHAGOGASTRODUODENOSCOPY TRANSORAL DIAGNOSTIC 04/21/2020 EGD FECAL OCCULT BLOOD TEST 01/01/2018 negative HYSTERECTOMY HX 1970 one ovary removed LEXISCAN STRESS TEST 11/21/2020 negative PAST SURGICAL HISTORY OF 1971 appendectomy PAST SURGICAL HISTORY OF 1987 breast lump, benign STRESS TEST 07/09/2016 WNL TUMOR REMOVAL (SPECIFY LOCATION) HX 2001 stomach FAMILY HISTORY Problem Relation Age of Onset Breast Cancer Mother over 50 Hypertension Mother Lipids Mother Osteoporosis Mother Thyroid Mother Cancer Father stomach Cancer Brother lung Alzheimer's Disease Brother dementia Diabetes Brother Social History Tobacco Use Smoking status: Some Days Types: Cigarettes Smokeless tobacco: Never Tobacco comments: Roughly one pack per week Vaping Use Vaping Use: Never used Substance and Sexual Activity Alcohol use: Not Currently Drug use: Never Sexual activity: Not Currently ALLERGIES Allergen Reactions Bactrim [Sulfametho* Other: See Comments Unknown. Cephalexin Other: See Comments Unknown. Citalopram Swelling Throat swelled Cymbalta [Duloxetin* Other: See Comments Made her feel groggy. Review of Systems All other systems reviewed and are negative. Physical Exam Vitals [11/30/22 1322] BP Pulse Temp Temp src Resp SpO2 Weight Height 146/85 64 36.6 ?C (97.9 ?F) Temporal 20 99 % 51.3 kg (113 lb) 1.549 m (5' 1 ) Physical Exam Vitals reviewed. Constitutional: Appearance: She is not toxic-appearing. HENT: Head: Normocephalic and atraumatic. Right Ear: Tympanic membrane normal. Left Ear: Tympanic membrane normal. Mouth/Throat: Mouth: Mucous membranes are moist. Pharynx: No oropharyngeal exudate or posterior oropharyngeal erythema. Eyes: General: No scleral icterus. Extraocular Movements: Extraocular movements intact. Pupils: Pupils are equal, round, and reactive to light. Cardiovascular: Rate and Rhythm: Normal rate and regular rhythm. Pulses: Normal pulses. Pulmonary: (more content not included)... Normal [facility] FLUABV+SARS-CoV-2+RSV Pnl Re sp CRISTINA+probeon 11-30-2022 FLUABV+SARS-CoV-2+RS V Pnl Resp CRISTINA+probe COVID 19 RESULT: Not detected The method used is RT-PCR or an equivalent NAAT method. Reference Range(the expected result in uninfected individuals): Not detected INFLUENZA A PCR: Not detected INFLUENZA B PCR: Not detected RSV PCR: Not detected Normal [facility] Comment on above: Performed By: #### 9 5941-1 ####[facility] [id number] [place] [address] [place] HIGH SENSITIVITY TROPONIN T (INITIAL)on 11-30-2022 HIGH SENSITIVITY ADIA 12 ng/L High <12 [facility] Comment on above: Order Comment: Speci men Type: URINE SPECIMEN Ordering Facility: [facility] Address: [address] [place] [address] [place] [address] Result Comment: When assessing risk for acute coronary syndromes: In patients undergoing blood draw greater than or equal to 2 hours from symptom onset, with history of very low to moderate risk and non-ischemic ECG, an initial hs-Troponin T less than 12 ng/L AND a 1 hour delta hs-Troponin T less than 3 ng/L should be considered very low risk for 30 day MACE. Performed By: #### 2 4356-8 #### [facility] CLIA [id number] [address] [place] [address] [facility] HIGH SENSITIVITY TROPONIN T (SECOND)on 11-30-2022 HIGH SENSITIVITY ADIA 13 ng/L High <12 [facility] Comment on above: Order Comment: Deshawn ramirez Type: BLOOD SPECIMEN Ordering Facility: [facility] Address: [address] [place] [address] Result Comment: When assessing risk for acute coronary syndromes: In patients undergoing blood draw greater than or equal to 2 hours from symptom onset, with history of very low to moderate risk and non-ischemic ECG, an initial hs-Troponin T less than 12 ng/L AND a 1 hour delta hs-Troponin T less than 3 ng/L should be considered very low risk for 30 day MACE. Performed By: #### L [id number] #### [facility] CLIA [id number] [address] [place] [address] HIGH SENSITIVITY TROPONIN T (THIRD) 3 HRS AFTER INITIALon 11-30-2022 HIGH SENSITIVITY ADIA 13 ng/L High <12 [facility] Comment on above: Order Comment: Deshawn ramirez Type: URINE SPECIMEN Ordering Facility: [facility] Address: [address] [place] [address] Result Comment: When assessing risk for acute coronary syndromes: In patients undergoing blood draw greater than or equal to 2 hours from symptom onset, with history of very low to moderate risk and non-ischemic ECG, an initial hs-Troponin T less than 12 ng/L AND a 1 hour delta hs-Troponin T less than 3 ng/L should be considered very low risk for 30 day MACE. Performed By: #### 2 4356-8 #### [facility] CLIA [id number] [address] [place] Lipase SerPl-cCncon 11-30-19 Lipase [Catalytic activity/Vol] 17 U/L Normal 16-61 [facility] Comment on above: Order Comment: Speci men Type: URINE SPECIMEN Ordering Facility: [facility] Address: [address] [place] [address] Performed By: #### 2 4356-8 #### [facility] CLIA [id number] [address] [place] [address] [place] Magnesium SerPl-mCncon 11-30 Magnesium [Mass/Vol] 1.6 mg/dL Low 1.7-2.3 [facility] Comment on above: Order Comment: Speci men Type: URINE SPECIMEN Ordering Facility: [facility] Address: [address] [place] [address] Performed By: #### 2 4356-8 #### [facility] CLIA [id number] [address] [place] [address] Urinalysis complete panel (U )on 11-30-2022 Bilirubin Ql (U) Negative Normal Negative [facility] Comment on above: Order Comment: Speci men Type: URINE SPECIMEN Ordering Facility: [facility] Address: [address] [place] [address] Performed By: #### 2 4356-8 #### [facility] CLIA [id number] [address] [place] [address] Clarity (Unsp spec) Clear Normal Clear [facility] Comment on above: Order Comment: Speci men Type: URINE SPECIMEN Ordering Facility: [facility] Address: [address] [place] [address] Performed By: #### 2 4356-8 #### [facility] CLIA [id number] [address] [place] [address] Color (U) Yellow Normal Yellow [facility] Comment on above: Order Comment: Speci men Type: URINE SPECIMEN Ordering Facility: [facility] Address: [address] [place] [address] Performed By: #### 2 4356-8 #### [facility] CLIA [id number] [address] [place] [address] [facility] [place] Glucose Test strip (U) [Mass/Vol] Negative Normal Negative [facility] Comment on above: Order Comment: Speci men Type: URINE SPECIMEN Ordering Facility: [facility] Address: [address] [place] [address] Performed By: #### 2 4356-8 #### [facility] CLIA [id number] [address] [place] [address] [place] Hemoglobin Ql (U) Negative Normal Negative [facility] Comment on above: Order Comment: Speci men Type: URINE SPECIMEN Ordering Facility: [facility] Address: [address] [place] [address] Performed By: #### 2 4356-8 #### [facility] CLIA [id number] [address] [place] [address] [place] Ketones Ql (U) Negative Normal Negative [facility] Comment on above: Order Comment: Speci men Type: URINE SPECIMEN Ordering Facility: [facility] Address: [address] [place] [address] Performed By: #### 2 4356-8 #### [facility] CLIA [id number] [address] [place] [address] [facility] [place] Leukocyte esterase Test strip Ql (U) Negative Normal Negative [facility] Comment on above: Order Comment: Speci men Type: URINE SPECIMEN Ordering Facility: [facility] Address: [address] [address] Performed By: #### 2 4356-8 #### [facility] CLIA [id number] [address] [place] [address] [place] Nitrite Ql (U) Negative Normal Negative [facility] Comment on above: Order Comment: Speci men Type: URINE SPECIMEN Ordering Facility: [facility] Address: [address] [place] [address] Performed By: #### 2 4356-8 #### [facility] CLIA [id number] [address] [place] pH (U) 5.5 [pH] Normal 5.0-8.0 [facility] Comment on above: Order Comment: Speci men Type: URINE SPECIMEN Ordering Facility: [facility] Address: [address] [place] [address] Performed By: #### 2 4356-8 #### [facility] CLIA [id number] [address] [place] Protein (U) [Mass/Vol] Negative Normal Negative [facility] Comment on above: Order Comment: Speci men Type: URINE SPECIMEN Ordering Facility: [facility] Address: [address] [place] [address] Performed By: #### 2 4356-8 #### [facility] CLIA [id number] [address] [place] [address] [place] RBC LM.HPF (Urine sed) [#/Area] 0-3 /HPF Normal 0-3 /HPF [facility] Comment on above: Order Comment: Speci men Type: URINE SPECIMEN Ordering Facility: [facility] Address: [address] [place] [address] Performed By: #### 2 4356-8 #### [facility] CLIA [id number] [address] [place] Specific gravity (U) [Rel density] <=1.005 Low 1.005-1.030 [facility] Comment on above: Order Comment: Speci men Type: URINE SPECIMEN Ordering Facility: [facility] Address: [address] [place] [address] Performed By: #### 2 4356-8 #### [facility] CLIA [id number] [address] [id number] [facility] [place] Urobilinogen Ql (U) 0.2 EU/dL Normal 0.2-1.0 EU/dL [facility] Comment on above: Order Comment: Speci men Type: URINE SPECIMEN Ordering Facility: [facility] Address: [address] [place] [address] Performed By: #### 2 4356-8 #### [facility] CLIA [id number] [address] [place] [place] [address] WBC LM.HPF (Urine sed) [#/Area] 0-5 /HPF Normal 0-5 /HPF [facility] Comment on above: Order Comment: Speci men Type: URINE SPECIMEN Ordering Facility: [facility] Address: [place] [address] Performed By: #### 2 4356-8 #### [facility] CLIA [id number] [address] [place], [place] [id number] [facility] XR CHEST 2V FRONTAL/LATon XR CHEST 2V FRONTAL/LAT * * *Final Report* * * DATE OF EXAM: Nov 30 2022 2:59PM LDX 5291 - XR CHEST 2V FRONTAL/LAT / PROCEDURE REASON: Fatigue and malaise * * * * Physician Interpretation * * * * EXAMINATION: CHEST RADIOGRAPH (2 VIEW FRONTAL and LATERAL) CLINICAL HISTORY: Fatigue and malaise MQ: XC2_6 EXAM DATE/TIME: 11/30/2022 2:59 PM COMPARISON: 02/04/2020 RESULT: Lines, tubes, and devices: None. Lungs and pleura: No consolidation. No lung mass. No pleural effusion. No pneumothorax. Cardiomediastinal silhouette: Normal cardiomediastinal silhouette. Calcified mediastinal nodes. Bones and soft tissues: Unremarkable. IMPRESSION: No acute radiographic abnormality. Monogram Maker: PSCB Transcribe Date/Time: Nov 30 2022 3:06P Dictated by : DUTCH ROBERTS MD This examination was interpreted and the report reviewed and electronically signed by: DUTCH ROBERTS MD on Nov 30 2022 3:08PM EST [id number] Normal [facility] XR Cervical spine AP and Lat eral and obliqueon 11-24-2022 IMPRESSION: Multilevel cervical degenerative change. Monogram Maker: PSCB Transcribe Date/Time: Nov 24 2022 10:26A Dictated by : YOSEF PHILLIPS MD This examination was interpreted and the report reviewed and electronically signed by: YOSEF PHILLIPS MD on Nov 24 2022 10:27AM [facility] DIVISION OF RADIOLOGY * * *Final Report* * * DATE OF EXAM: Nov 21 2022 2:22PM WOX 5311 - XR CERVICAL 4V AP/LAT/OBL / PROCEDURE REASON: Neck pain * * * * Physician Interpretation * * * * HISTORY: Chronic posterior neck pain with numbness down both arms. Increase in balance issues over the last 6 weeks. No injury. Neck pain . TECHNIQUE: XR CERVICAL 4V AP/LAT/OBL Number of different views (projections): 4 COMPARISON: None RESULT: Counting reference: Craniocervical junction. Anatomic Variants: None. Cervical Spine: Prevertebral soft tissues are not prominent. There is no radiographic evidence of fracture. Degenerative changes include severe disc height loss at C4-C5 and C5-C6 and moderate disc height loss at C3-C4 and C6-C7 and multilevel osseous neural foraminal narrowing. There is multilevel facet arthritis. There is approximately 3 mm retrolisthesis of C4 and of C5. - DIVISION OF RADIOLOGY Provider, [facility] - 11/24/2022 * * *Final Report* * * DATE OF EXAM: Nov 21 2022 2:22PM WOX 5311 - XR CERVICAL 4V AP/LAT/OBL / PROCEDURE REASON: Neck pain * * * * Physician Interpretation * * * * HISTORY: Chronic posterior neck pain with numbness down both arms. Increase in balance issues over the last 6 weeks. No injury. Neck pain . TECHNIQUE: XR CERVICAL 4V AP/LAT/OBL Number of different views (projections): 4 COMPARISON: None RESULT: Counting reference: Craniocervical junction. Anatomic Variants: None. Cervical Spine: Prevertebral soft tissues are not prominent. There is no radiographic evidence of fracture. Degenerative changes include severe disc height loss at C4-C5 and C5-C6 and moderate disc height loss at C3-C4 and C6-C7 and multilevel osseous neural foraminal narrowing. There is multilevel facet arthritis. There is approximately 3 mm retrolisthesis of C4 and of C5. - IMPRESSION IMPRESSION: Multilevel cervical degenerative change. Monogram Maker: RITCHIE Transcribe Date/Time: Nov 24 2022 10:26A Dictated by : YOSEF PHILLIPS MD This examination was interpreted and the report reviewed and electronically signed by: YOSEF PHILLIPS MD on Nov 24 2022 10:27AM EST [facility] XR Lumbar spine 3 Viewson IMPRESSION: No acute findings. Degenerative changes. Monogram Maker: [facility] Transcribe Date/Time: Nov 24 2022 10:24A Dictated by : YOSEF PHILLIPS MD This examination was interpreted and the report reviewed and electronically signed by: YOSEF PHILLIPS MD on Nov 24 2022 10:26AM EST DIVISION OF RADIOLOGY * * *Final Report* * * DATE OF EXAM: Nov 21 2022 2:22PM WOX 5228 - XR LUMBAR 3V AP/LAT/L5-S1 / PROCEDURE REASON: Lumbar back pain * * * * Physician Interpretation * * * * HISTORY: Chronic lower back pain with numbness down both legs increasing over time. No injury. Lumbar back pain . TECHNIQUE: XR LUMBAR 3V AP/LAT/L5-S1 Laterality: NOT APPLICABLE Number of different views (projections): 3 COMPARISON: None RESULT: Counting reference: Lumbosacral junction. For the purposes of this report, L4-5 is considered the level of the iliac crest and there are 5 lumbar-type vertebrae. Anatomic variant: Possible transitional S1 vertebral body. Lumbar spine: There is no evidence of fracture or vertebral compression. Degenerative changes include facet arthritis especially in mid and lower lumbar spine with minimal areas of disc height loss. There is trace anterolisthesis of L4. There are areas of spinous process hypertrophy and crowding. There is a mild rightward thoracolumbar curvature. Bones appear osteopenic. Vascular calcifications are present. - DIVISION OF RADIOLOGY Provider, [facility] - 11/24/2022 * * *Final Report* * * DATE OF EXAM: Nov 21 2022 2:22PM WOX 5228 - XR LUMBAR 3V AP/LAT/L5-S1 / PROCEDURE REASON: Lumbar back pain * * * * Physician Interpretation * * * * HISTORY: Chronic lower back pain with numbness down both legs increasing over time. No injury. Lumbar back pain . TECHNIQUE: XR LUMBAR 3V AP/LAT/L5-S1 Laterality: NOT APPLICABLE Number of different views (projections): 3 COMPARISON: None RESULT: Counting reference: Lumbosacral junction. For the purposes of this report, L4-5 is considered the level of the iliac crest and there are 5 lumbar-type vertebrae. Anatomic variant: Possible transitional S1 vertebral body. Lumbar spine: There is no evidence of fracture or vertebral compression. Degenerative changes include facet arthritis especially in mid and lower lumbar spine with minimal areas of disc height loss. There is trace anterolisthesis of L4. There are areas of spinous process hypertrophy and crowding. There is a mild rightward thoracolumbar curvature. Bones appear osteopenic. Vascular calcifications are present. - IMPRESSION IMPRESSION: No acute findings. Degenerative changes. Monogram Maker: RITCHIE Transcribe Date/Time: Nov 24 2022 10:24A Dictated by : YOSEF PHILLIPS MD This examination was interpreted and the report reviewed and electronically signed by: YOSEF PHILLIPS MD on Nov 24 2022 10:26AM EST [facility] XR Lumbar spine 3 ViewsOrder ed By: [facility] Provider on 11-24-2022 [facility] No Panel Informationon 11-21 Radiology Study observation (narrative) [facility] UA DIP, URINE (POC)on 2022 BILIRUBIN UA (POCT) Negative Negative [facility] CLARITY UA (POCT) Clear [facility] COLOR UA (POCT) Light yellow [facility] GLUCOSE UA (POCT) Negative Negative mg/dL [facility] HEMOGLOBIN/BLOOD UA (POCT) Small Abnormal Negative [facility] KETONE UA (POCT) Negative Negative mg/dL [facility] LEUKOCYTES UA (POCT) Negative Negative [facility] NITRITE UA (POCT) Negative [facility] PH UA (POCT) 5.5 4.5 - 8.0 [facility] Protein Ql (U) Negative Negative mg/dL [facility] SPECIFIC GRAVITY UA (POCT) <=1.005 Abnormal 1.005 - 1.030 [facility] UROBILINOGEN UA (POCT) 0.2 E.U./dL Normal E.U./dL [facility] XR ESOPHAGRAMon 10-09-2022 [facility] AMYLASE BLDon 06-21-2022 Amylase [Catalytic activity/Vol] 64 U/L 30 - 104 U/L [facility] Hepatic function 2000 panelo n 06-21-2022 Albumin [Mass/Vol] 4.3 g/dL 3.9 - 4.9 g/dL [facility] ALP [Catalytic activity/Vol] 110 U/L 34 - 123 U/L [facility] ALT [Catalytic activity/Vol] 36 U/L 7 - 38 U/L [facility] AST [Catalytic activity/Vol] 49 U/L High 13 - 35 U/L [facility] Bilirubin [Mass/Vol] 0.5 mg/dL 0.2 - 1 .3 mg/dL [facility] Bilirubin.conjugated [Mass/Vol] <0.2 mg/dL [facility] Protein [Mass/Vol] 6.4 g/dL 6.3 - 8.0 g/dL [facility] LIPASE BLDon 06-21-2022 Lipase [Catalytic activity/Vol] 24 U/L 16 - 61 U/L [facility] CR Wrist 2 Views Righton CR Wrist 2 Views Right Patient Name: EDISON ALBARRAN Diagnostic Radiology Exam Date/Time 05/11/2020 23:23:48 EDT Exam CR Wrist 2 Views Right Ordering Physician LARRY STOCK Accession Number [id number] CPT4 Codes 09210 () Reason For Exam Hx osteoporosis, wrist pain moving boxes Report Indication: Osteoporosis. Wrist pain. Findings and impression: Right wrist two views. No fracture or dislocation seen. Degenerative changes and osteoporosis noted. Report Dictated on Workstation: [id number] Final Dictating Physician: MD RIVERA JOHN Signed Date and Time: 05/11/2020 11:39 pm Signed by: MD RIVERA JOHN Transcribed Date and Time: 05/11/2020 11:41 Normal [facility] XR WRIST RIGHT (2 VIEWS)on 0 05-11-2020 Patient Name: EDISON VO ---Diagnostic Radiology--- Exam Date/Time 05/11/2020 23:23:48 EDT Exam CR Wrist 2 Views Right Ordering Physician LARRY STOCK Accession Number [id number] CPT4 Codes 49676 () Reason For Exam Hx osteoporosis, wrist pain moving boxes Report Indication: Osteoporosis. Wrist pain. Findings and impression: Right wrist two views. No fracture or dislocation seen. Degenerative changes and osteoporosis noted. Report Dictated on Workstation: [employer] --- Final --- Dictating Physician: MD RIVERA JOHN Signed Date and Time: 05/11/2020 11:39 pm Signed by: MD RIVERA JOHN Transcribed Date and Time: 05/11/2020 11:41 [facility] In[facility] Radiology Results From [facility] - 05/11/2020 11:41 PM EDT Patient Name: EDISON ALBARRAN ---Diagnostic Radiology--- Exam Date/Time 05/11/2020 23:23:48 EDT Exam CR Wrist 2 Views Right Ordering Physician [id number] ROCHE Accession Number [id number] CPT4 Codes 66261 () Reason For Exam Hx osteoporosis, wrist pain moving boxes Report Indication: Osteoporosis. Wrist pain. Findings and impression: Right wrist two views. No fracture or dislocation seen. Degenerative changes and osteoporosis noted. Report Dictated on Workstation: [id number] --- Final --- Dictating Physician: MD RIVERA JOHN Signed Date and Time: 05/11/2020 11:39 pm Signed by: MD RIVERA JOHN Transcribed Date and Time: 05/11/2020 11:41 [facility] Surgical Tissue Exam Test performed at [place] [address] NAME: EDISON ALBARRAN REQUESTING: TAYLOR NUNEZ MD FINAL DIAGNOSIS: COLON, RANDOM BIOPSY - FRAGMENTS OF BENIGN COLONIC MUCOSA WITH A MILD INCREASE IN INTRAEPITHELIAL LYMPHOCYTES AND VERY MILD ACUTE NONSPECIFIC COLITIS. SEE COMMENT. COMMENT: The lamina propria is somewhat expanded by chronic and very mild acute inflammation with rare cryptitis. There are foci of increase in intraepithelial lymphocytes. Although these findings may be seen due to microscopic colitis, an infectious etiology cannot entirely be excluded. Recommend clinical and colonoscopic correlation. OPERATIVE PROCEDURE: Colon, biopsy CLINICAL INFORMATION: Chronic diarrhea [K52.9], Loss of weight [R63.4], Abnormal CT scan, Colon [R93.3], Menopausal GROSS DESCRIPTION: #1 random colon biopsies Received in formalin labeled random colon biopsies are multiple hernandez soft segments of tissue aggregating to 1.1 x 0.8 x 0.1 cm. The specimens are totally submitted in formalin in 1 cassette. LOUIE/rachel CARROLL M.D. PATHOLOGIST (Electronic signature on file) Signed out: 04/25/2020 16:19 PRINTED: 04/25/2020 Page 1 of 1 Normal [facility] Comment on above: Performed By: #### L URIN #### [place] [id number] Coronavirus 2019on 0 COVID 19 Result METAL CONTROL COORDINATOR Negative Normal [facility] Comment on above: Result Comment: Nega tive for COVID19 (SARS CoV2) by PCR. This test was developed and its performance characteristics determined by [facility]'s [facility] [place]. This test has been authorized by FDA under an Emergency Use Authorization (EUA). This test has been validated in accordance with the FDA's Guidance Document Policy for Diagnostics Testing in Laboratories Certified to Perform High Complexity Testing under CLIA prior to Emergency use Authorization for Coronavirus Disease 2019 during the Public Health Emergency issued on December 05, 2019. Performing Laboratory: [facility] [address] [place] [address] Performed By: #### L URIN #### [place] [id number] CT BRAIN WO IVCONon 03-09-20 CT BRAIN WO IVCON * * *Final Report* * * DATE OF EXAM: Mar 09 2020 3:38PM [facility] - CT BRAIN WO IVCON / PROCEDURE REASON: Dizziness * * * * Physician Interpretation * * * * EXAMINATION: CT BRAIN WITHOUT IV CONTRAST CLINICAL HISTORY: Dizziness TECHNIQUE: Serial axial images without IV contrast were obtained from the vertex to the foramen magnum. MQ: CTBWO_3 CT Dose-Length Product (DLP): 772.45 mGy*cm CT Dose Reduction Employed: No dose reduction techniques were required COMPARISON: MRI brain 01/19/2020. RESULT: Post-operative change: None. Acute change: No evidence of an acute infarct or other acute parenchymal process. Hemorrhage: No evidence of acute intracranial hemorrhage. Mass Lesion / Mass Effect: There is no evidence of an intracranial mass or extraaxial fluid collection. No significant mass effect. Chronic change: Scattered patchy foci of low attenuation are present within supratentorial white matter which is a nonspecific finding but likely represents mild microvascular ischemia. Parenchyma: There is no significant volume loss. The brain parenchyma is otherwise within normal limits for age. Ventricles: The ventricles are within normal limits of size and configuration for age. Paranasal sinuses and skull base: The visualized paranasal sinuses are grossly clear. The skull base and imaged soft tissues are unremarkable. IMPRESSION: No evidence of acute intracranial process. Mild chronic small vessel ischemic changes of the supratentorial matter. Monogram Maker: RITCHIE Transcribe Date/Time: Mar 09 2020 3:43P Dictated by : JOJO NEGRON MD This examination was interpreted and the report reviewed and electronically signed by: JOJO NEGRON MD on Mar 09 2020 3:50PM EST Normal [facility] Comprehensive Panelon 2019 Albumin [Mass/Vol] 4.1 g/dL Normal 3.9-4.9 [facility] Comment on above: Performed By: #### L LP14 #### [place] [address] ALP [Catalytic activity/Vol] 70 U/L Normal 34-123 [facility] Comment on above: Performed By: #### L LP14 #### [place] [address] ALT-SGPT Blood 19 U/L Normal 7-38 [facility] Comment on above: Performed By: #### L LP14 #### [place] [address] Anion gap [Moles/Vol] 18 mmol/L Normal 9-18 [facility] Comment on above: Performed By: #### L LP14 #### [place] [address] AST-SGOT Blood 32 U/L Normal 13-35 [facility] Comment on above: Performed By: #### L LP14 #### [facility] [address] [place], [place] [address] Bilirubin Ql (U) 0.5 mg/dL Normal 0.2-1.3 [facility] Comment on above: Performed By: #### L LP14 #### [facility] [address] [place], [place] [address] Calcium [Mass/Vol] 9.2 mg/dL Normal 8.5-10.2 [facility] Comment on above: Performed By: #### L LP14 #### [facility] [address] [place], [place] [address] Chloride [Moles/Vol] 101 mmol/L Normal 97-105 [facility] Comment on above: Performed By: #### L LP14 #### [facility] [address] [place], [place] [address] CO2 Blood 16 mmol/L Low 22-30 [facility] Comment on above: Performed By: #### L LP14 #### [facility] [address] [place], [place] [address] Creatinine [Mass/Vol] 0.92 mg/dL Normal 0.58-0.96 [facility] Comment on above: Performed By: #### L LP14 #### [facility] [address] [place], [place] [address] Glucose [Mass/Vol] 63 mg/dL Low 74-99 [facility] Comment on above: Result Comment: The [place] Diabetes Association (ADA) provides guidance for cutoff values for fasting glucose and random glucose. The ADA defines fasting as no caloric intake for at least 8 hours.Fasting plasma glucose results between 100 to 125 mg/dL indicate increased risk for diabetes (prediabetes). Fasting plasma glucose results greater than or equal to 126 mg/dL meet the criteria for diagnosis of diabetes. In the absence of unequivocal hyperglycemia, results should be confirmed by repeat testing. In a patient with classic symptoms of hyperglycemia or hyperglycemic crisis, random plasma glucose results greater than or equal to 200 mg/dL meet the criteria for diagnosis of diabetes. Reference: Standards of Medical Care in Diabetes 2016; [place] [employer] Association. Diabetes Care. 2016;39(Suppl 1). Performed By: #### L LP14 #### [facility] [address] [place] [address] Potassium [Moles/Vol] 3.3 mmol/L Low 3.7-5.1 [facility] Comment on above: Performed By: #### L LP14 #### [facility] [address] [place] [address] Protein [Mass/Vol] 6.3 g/dL Normal 6.3-8.0 [facility] Comment on above: Performed By: #### L LP14 #### [facility] [address] [place] [address] Sodium [Moles/Vol] 135 mmol/L Low 136-144 [facility] Comment on above: Performed By: #### L LP14 #### [facility] [address] [place] [address] Urea nitrogen [Mass/Vol] 10 mg/dL Normal 7-21 [facility] Comment on above: Performed By: #### L LP14 #### [facility] [address] [place] [address] Hemogram/Diffon 03-09-2020 Abs. Baso 0.04 thou/cmm Normal 0.00-0.08 [facility] Comment on above: Performed By: #### L CBCD #### [place] [address] Abs. Hooker 0.55 thou/cmm Normal 0.20-1.00 [facility] Comment on above: Performed By: #### L CBCD #### [facility] [address] [place] [address] Abs. Neut (ANC) 2.57 thou/cmm Low 3.00-5.67 [facility] Comment on above: Performed By: #### L CBCD #### [facility] [address] [place] [address] Basophils/100 WBC (Bld) 0.8 % Normal [facility] Comment on above: Performed By: #### L CBCD #### [place] [address] Eosinophils (Bld) [#/Vol] 0.03 thou/cmm Normal 0.00-0.41 [facility] Comment on above: Performed By: #### L CBCD #### [facility] [address] [place], [place] [address] Eosinophils/100 WBC (Bld) 0.6 % Normal [facility] Comment on above: Performed By: #### L CBCD #### [place] [address] Erythrocyte distribution width (RBC) [Ratio] 13.3 % Normal 11.5-15.9 [facility] Comment on above: Performed By: #### L CBCD #### [place] [address] Hematocrit (Bld) [Volume fraction] 37.6 % Normal 37.0-47.0 [facility] Comment on above: Performed By: #### L CBCD #### [place] [address] Hemoglobin (Bld) [Mass/Vol] 12.6 g/dL Normal 12.0-16.0 [facility] Comment on above: Performed By: #### L CBCD #### [place] [address] Lymphocytes (Bld) [#/Vol] 1.81 thou/cmm Normal 1.50-3.65 [facility] Comment on above: Performed By: #### L CBCD #### [address] [address] Lymphocytes/100 WBC (Bld) 36.1 % Normal [facility] Comment on above: Performed By: #### L CBCD #### [address] [address] MCH (RBC) [Entitic mass] 29.6 pg Normal 27.0-31.0 [facility] Comment on above: Performed By: #### L CBCD #### [address] [address] MCHC (RBC) [Mass/Vol] 33.5 % Normal 32.0-36.0 [facility] Comment on above: Performed By: #### L CBCD #### [facility] [address] [place] [address] MCV (RBC) [Entitic vol] 88.3 fL Normal 81.0-99.0 [facility] Comment on above: Performed By: #### L CBCD #### [place] [address] Monocytes/100 WBC (Bld) 11.0 % Normal [facility] Comment on above: Performed By: #### L CBCD #### [place] [address] Platelet mean volume (Bld) [Entitic vol] 9.3 fL Normal 7.1-10.5 [facility] Comment on above: Performed By: #### L CBCD #### [place] [address] Platelets (Bld) [#/Vol] 195 thou/cmm Normal 150-400 [facility] Comment on above: Performed By: #### L CBCD #### [place] [address] RBC (Bld) [#/Vol] 4.26 mil/cmm Normal 4.20-5.40 [facility] Comment on above: Performed By: #### L CBCD #### [place] [address] Seg Neutrophil 51.5 % Normal [facility] Comment on above: Performed By: #### L CBCD #### [place] [address] WBC (Bld) [#/Vol] 5.0 thou/cmm Normal 4.8-10.5 [facility] Comment on above: Performed By: #### L CBCD #### [place] [address] MDRD eGFRon 03-09-2020 GFR/1.73 sq M predicted among non-blacks MDRD (S/P/Bld) [Vol rate/Area] mL/min/{1.73_m2} Normal >60mL/min/1 .73m2 [facility] Comment on above: Result Comment: If t he patient is , multiply the result by 1.210. Performed By: #### L URIN #### [place] [address] Troponin T, High Sens.on Troponin T, High Sens. 20 ng/L High 0-11 [facility] Comment on above: Result Comment: Minal ents taking a biotin dose of up to 5 mg/day should refrain from taking biotin for 4 hours prior to sample collection. Patients taking a biotin dose of 5 to 10 mg/day should refrain from taking biotin for 8 hours prior to sample collection. Patients taking a biotin dose > 10 mg/day should consult with their physician or the laboratory prior to having a sample taken. Clinicians should consider biotin interference as a source of error, when clinically suspicious of the laboratory result. Performed By: #### L TRPT #### [place] [address] Troponin T, High Sens. 19 ng/L High 0-11 [facility] Comment on above: Result Comment: Minal ents taking a biotin dose of up to 5 mg/day should refrain from taking biotin for 4 hours prior to sample collection. Patients taking a biotin dose of 5 to 10 mg/day should refrain from taking biotin for 8 hours prior to sample collection. Patients taking a biotin dose > 10 mg/day should consult with their physician or the laboratory prior to having a sample taken. Clinicians should consider biotin interference as a source of error, when clinically suspicious of the laboratory result. Performed By: #### L URIN #### [place] [address] Basic Panelon 11-04-2019 Calcium [Mass/Vol] 9.2 mg/dL Normal 8.5-10.1 [facility] Comment on above: Performed By: #### L P8 #### [place] [address] CO2 Blood 25 mEq/L Normal 21-32 [facility] Comment on above: Performed By: #### L P8 #### [place] [address] Creatinine [Mass/Vol] 0.74 mg/dL Normal 0.51-0.95 [facility] Comment on above: Result Comment: Use of this assay is not recommended for patients undergoing treatment with phenindione, due to the potential for falsely depressed results. Performed By: #### L P8 #### [facility] [address] [place], [place] [address] Glucose [Mass/Vol] 129 mg/dL High 70-99 [facility] Comment on above: Performed By: #### L P8 #### [facility] [address] [place], [place] [address] Urea nitrogen [Mass/Vol] 3 mg/dL Low 7-18 [facility] Comment on above: Performed By: #### L P8 #### [address] [address] Chloride [Moles/Vol] 104 mmol/L Normal 98-109 [facility] Comment on above: Result Comment: Test ing performed on an Jeffrey i-STAT. Performed By: #### L P8 #### [address] [address] Potassium [Moles/Vol] 3.4 mmol/L Low 3.5-4.9 [facility] Comment on above: Result Comment: Test ing performed on an [employer] i-STAT. Performed By: #### L P8 #### [address] [address] Sodium [Moles/Vol] 141 mmol/L Normal 138-146 [facility] Comment on above: Result Comment: Test ing performed on an [employer] i-STAT. Performed By: #### L P8 #### [address] [address] CPKon 11-04-2019 CPK 50 U/L Normal 26-192 [facility] Comment on above: Performed By: #### L CK #### [address] [address] Hemogram/Diffon 11-04-2019 Abs. Baso 0.05 thou/cmm Normal 0.00-0.08 [facility] Comment on above: Performed By: #### L CBCD #### [facility] [address] [place] [address] Abs. Hooker 0.48 thou/cmm Normal 0.20-1.00 [facility] Comment on above: Performed By: #### L CBCD #### [facility] [address] [place] [address] Abs. Neut (ANC) 4.91 thou/cmm Normal 3.00-5.67 [facility] Comment on above: Performed By: #### L CBCD #### [facility] [address] [place] [address] Basophils/100 WBC (Bld) 0.7 % Normal [facility] Comment on above: Performed By: #### L CBCD #### [place] [address] Eosinophils (Bld) [#/Vol] 0.12 thou/cmm Normal 0.00-0.41 [facility] Comment on above: Performed By: #### L CBCD #### [place] [address] Eosinophils/100 WBC (Bld) 1.6 % Normal [facility] Comment on above: Performed By: #### L CBCD #### [place] [address] Erythrocyte distribution width (RBC) [Ratio] 12.5 % Normal 11.5-15.9 [facility] Comment on above: Performed By: #### L CBCD #### [place] [address] Hematocrit (Bld) [Volume fraction] 35.9 % Low 37.0-47.0 [facility] Comment on above: Performed By: #### L CBCD #### [place] [address] Hemoglobin (Bld) [Mass/Vol] 12.0 g/dL Normal 12.0-16.0 [facility] Comment on above: Performed By: #### L CBCD #### [place] [address] Lymphocytes (Bld) [#/Vol] 1.94 thou/cmm Normal 1.50-3.65 [facility] Comment on above: Performed By: #### L CBCD #### [facility] [address] [place], [place] [address] Lymphocytes/100 WBC (Bld) 25.8 % Normal [facility] Comment on above: Performed By: #### L CBCD #### [facility] [address] [place] [address] MCH (RBC) [Entitic mass] 29.1 pg Normal 27.0-31.0 [facility] Comment on above: Performed By: #### L CBCD #### [place] [address] MCHC (RBC) [Mass/Vol] 33.4 % Normal 32.0-36.0 [facility] Comment on above: Performed By: #### L CBCD #### [place] [address] MCV (RBC) [Entitic vol] 86.9 fL Normal 81.0-99.0 [facility] Comment on above: Performed By: #### L CBCD #### [address] [address] Monocytes/100 WBC (Bld) 6.4 % Normal [facility] Comment on above: Performed By: #### L CBCD #### [place] [address] Platelet mean volume (Bld) [Entitic vol] 9.1 fL Normal 7.1-10.5 [facility] Comment on above: Performed By: #### L CBCD #### [facility] [address] [place] [address] Platelets (Bld) [#/Vol] 300 thou/cmm Normal 150-400 [facility] Comment on above: Performed By: #### L CBCD #### [place] [address] RBC (Bld) [#/Vol] 4.13 mil/cmm Low 4.20-5.40 [facility] Comment on above: Performed By: #### L CBCD #### [facility] [address] [place] [address] Seg Neutrophil 65.5 % Normal [facility] Comment on above: Performed By: #### L CBCD #### [facility] [address] [place] [address] WBC (Bld) [#/Vol] 7.5 thou/cmm Normal 4.8-10.5 [facility] Comment on above: Performed By: #### L CBCD #### [facility] [address] [place] [address] MDRD eGFRon 11-04-2019 GFR/1.73 sq M predicted among non-blacks MDRD (S/P/Bld) [Vol rate/Area] mL/min/{1.73_m2} Normal >60mL/min/1 .73m2 [facility] Comment on above: Result Comment: If t he patient is , multiply the result by 1.210. Performed By: #### L GFR #### [place] [address] Troponin Ion 11-04-2019 Troponin I.cardiac [Mass/Vol] ng/mL Normal <=0.07 [facility] Comment on above: Performed By: #### L TRP #### [place] [address] Urinalysis Routineon 020 Appearance (U) CLEAR Normal [facility] Comment on above: Performed By: #### L URIN #### [place] [address] Bilirubin Urine Negative Normal Negative [facility] Comment on above: Performed By: #### L URIN #### [place] [address] Color (U) YELLOW Normal [facility] Comment on above: Performed By: #### L URIN #### [place] [address] Ep Cells Urine NONE Normal 0-5 [facility] Comment on above: Performed By: #### L URIN #### [address] [address] Glucose Ql (U) Negative Normal Negative [facility] Comment on above: Performed By: #### L URIN #### [place] [address] Hemoglobin,Urine TRACE-INTACT Abnormal Negative [facility] Comment on above: Performed By: #### L URIN #### [place] [address] Ketone Urine Negative Normal Negative [facility] Comment on above: Performed By: #### L URIN #### [place] [address] Leukocytes Esterase Negative Normal Negative [facility] Comment on above: Performed By: #### L URIN #### [place] [address] Nitrites Urine Negative Normal Negative [facility] Comment on above: Performed By: #### L URIN #### [place] [address] pH (U) 5.5 [pH] Normal 5.0-8.0 [facility] Comment on above: Performed By: #### L URIN #### [place] [address] Protein (U) [Mass/Vol] Negative Normal Negative [facility] Comment on above: Performed By: #### L URIN #### [place] [address] RBC LM.HPF (Urine sed) [#/Area] NONE Normal 0-3 [facility] Comment on above: Performed By: #### L URIN #### [place] [address] Specific [place], Ur <=1.005 Normal 1.005-1.030 [facility] Comment on above: Performed By: #### L URIN #### [place] [address] Urobilinogen,Ur 0.2 EU/dL Normal 0.2-1.0 [facility] Comment on above: Performed By: #### L URIN #### [place] [address] [place], [place] [address] WBC LM.HPF (Urine sed) [#/Area] NONE Normal 0-5 [facility] Comment on above: Performed By: #### L SELENA #### [facility] [address] [place], [place] [address] XR CHEST 2V FRONTAL/LATon XR CHEST 2V FRONTAL/LAT * * *Final Report* * * DATE OF EXAM: Nov 04 2019 11:37AM LDX 5291 - XR CHEST 2V FRONTAL/LAT / PROCEDURE REASON: Fatigue and malaise * * * * Physician Interpretation * * * * EXAMINATION: CHEST RADIOGRAPH (2 VIEW FRONTAL & LATERAL) CLINICAL HISTORY: Fatigue and malaise MQ: [id number] Comparison: CT chest 01/05/2019 Chest radiograph 08/01/2018 RESULT: Lines, tubes, and devices: None. Lungs and pleura: No airspace consolidation or pulmonary edema. No pleural effusion or pneumothorax. Cardiomediastinal silhouette: Heart size is normal. Other: Mild thoracolumbar scoliosis convex to the right. IMPRESSION: No acute radiographic abnormality. Monogram Maker: [id number] Transcribe Date/Time: Nov 04 2019 11:39A Dictated by : PABLO LOPEZ MD This examination was interpreted and the report reviewed and electronically signed by: PABLO LOPEZ MD on Nov 04 2019 11:40AM EST Normal [facility] Vital Signs Date Time Vital Sign Value Performing Clinician Faci lity 07-22-2024 12:56-0400 Body mass index (BMI) [Ratio] 21.81 kg/m2 Kurt Saravia MD Work Phone: [facility] 07-22-2024 12:56-0400 Body weight 48.99 kg Kurt Saravia MD Work Phone: [facility] 07-22-2024 12:56-0400 Diastolic blood pressure 84 mm[Hg] Kurt Saravia MD Work Phone: [facility] 07-22-2024 12:56-0400 Heart rate 72 /min Kurt Saravia MD Work Phone: [facility] 07-22-2024 12:56-0400 Respiratory rate 16 /min Kurt Saravia MD Work Phone: [facility] 07-22-2024 12:56-0400 Systolic blood pressure 124 mm[Hg] Kurt Saravia MD Work Phone: [facility] 04-08-2024 14:51-0400 Body height 149.9 cm Kurt Saravia MD Work Phone: [facility] 04-08-2024 14:51-0400 Body mass index (BMI) [Ratio] 20.8 kg/m2 Kurt Saravia MD Work Phone: [facility] 04-08-2024 14:51-0400 Body weight 46.72 kg Kurt Saravia MD Work Phone: [facility] 04-08-2024 14:51-0400 Diastolic blood pressure 60 mm[Hg] Kurt Saravia MD Work Phone: [facility] 04-08-2024 14:51-0400 Heart rate 64 /min Kurt Saravia MD Work Phone: [facility] 04-08-2024 14:51-0400 Respiratory rate 16 /min Kurt Saravia MD Work Phone: [facility] 04-08-2024 14:51-0400 Systolic blood pressure 124 mm[Hg] Kurt Saravia MD Work Phone: [facility] 03-10-2024 13:55-0400 SaO2% (BldA) [Mass fraction] 98 % Saray Lianger PA-C Work Phone: [facility] 03-10-2024 13:48-0400 Body mass index (BMI) [Ratio] 20.28 kg/m2 Saray Lianger PA-C Work Phone: [facility] 03-10-2024 13:48-0400 Body weight 45.54 kg Saray Lianger PA-C Work Phone: [facility] 03-10-2024 13:48-0400 Respiratory rate 16 /min Saray Lianger PA-C Work Phone: [facility] 11-26-2023 13:14-0500 Body height 149.9 cm Colten Oro PA-C Work Phone: [facility] 11-26-2023 13:14-0500 Body temperature 97.59 [degF] Colten Oro PA-C Work Phone: [facility] 11-26-2023 13:14-0500 Body weight 43.82 kg Colten Oro PA-C Work Phone: [facility] 11-26-2023 13:14-0500 Diastolic blood pressure 68 mm[Hg] Colten Oro PA-C Work Phone: [facility] 11-26-2023 13:14-0500 Heart rate 106 /min Colten Oro PA-C Work Phone: [facility] 11-26-2023 13:14-0500 SaO2% (BldA) [Mass fraction] 95 % Colten Oro PA-C Work Phone: [facility] 11-26-2023 13:14-0500 Systolic blood pressure 130 mm[Hg] Colten Oro PA-C Work Phone: [facility] 11-26-2023 11:23-0500 Body weight 43.55 kg Mayank Quintanilla APRN.CLIENT SERVICES REPRESENTATIVE Work Phone: [facility] 11-26-2023 11:23-0500 Diastolic blood pressure 70 mm[Hg] Mayank Quintanilla APRN.CLIENT SERVICES REPRESENTATIVE Work Phone: [facility] 11-26-2023 11:23-0500 Heart rate 79 /min Mayank Quintanilla INSURANCE AGENTS SUPERVISOR.CLIENT SERVICES REPRESENTATIVE Work Phone: [facility] 11-26-2023 11:23-0500 Respiratory rate 16 /min Mayank Quintanilla APRN.CLIENT SERVICES REPRESENTATIVE Work Phone: [facility] 11-26-2023 11:23-0500 Systolic blood pressure 144 mm[Hg] Mayank Quintanilla APRN.CLIENT SERVICES REPRESENTATIVE Work Phone: [facility] 09-25-2023 15:02-0500 Diastolic blood pressure 80 mm[Hg] Kurt Saravia MD Work Phone: [facility] 09-25-2023 15:02-0500 Systolic blood pressure 122 mm[Hg] Kurt Saravia MD Work Phone: [facility] 09-25-2023 14:34-0500 Body weight 46.27 kg Kurt Saravia MD Work Phone: [facility] 09-25-2023 14:34-0500 Heart rate 64 /min Kurt Saravia MD Work Phone: [facility] 09-25-2023 14:34-0500 Respiratory rate 16 /min Kurt Saravia MD Work Phone: [facility] 07-15-2023 11:41-0400 Body temperature 97.81 [degF] Mally Calzada PA-C Work Phone: [facility] 07-15-2023 11:41-0400 Body weight 44.06 kg Mally Calzada PA-C Work Phone: [facility] 07-15-2023 11:41-0400 Diastolic blood pressure 66 mm[Hg] Mally Calzada PA-C Work Phone: [facility] 07-15-2023 11:41-0400 Heart rate 68 /min Mally Calzada PA-C Work Phone: [facility] 07-15-2023 11:41-0400 Respiratory rate 16 /min Mally Calzada PA-C Work Phone: [facility] 07-15-2023 11:41-0400 Systolic blood pressure 136 mm[Hg] Mally Calzada PA-C Work Phone: [facility] 04-23-2023 09:54-0400 Body temperature 98.6 [degF] Leatha Gaona RN Work Phone: [facility] 04-23-2023 09:54-0400 Diastolic blood pressure 62 mm[Hg] Leatha Gaona RN Work Phone: [facility] 04-23-2023 09:54-0400 Heart rate 56 /min Leatha Gaona RN Work Phone: [facility] 04-23-2023 09:54-0400 Respiratory rate 18 /min Leatha Gaona RN Work Phone: [facility] 04-23-2023 09:54-0400 SaO2% (BldA) [Mass fraction] 98 % Leatha Gaona RN Work Phone: [facility] 04-23-2023 09:54-0400 Systolic blood pressure 124 mm[Hg] Leatha Gaona RN Work Phone: [facility] 04-19-2023 15:30-0400 Diastolic blood pressure 68 mm[Hg] Yoko Abdullahi PT Work Phone: [facility] 04-19-2023 15:30-0400 Heart rate 62 /min Yoko Abdullahi PT Work Phone: [facility] 04-19-2023 15:30-0400 SaO2% (BldA) [Mass fraction] 97 % Yokomarlee Abdullahi PT Work Phone: [facility] 04-19-2023 15:30-0400 Systolic blood pressure 124 mm[Hg] Yoko Abdullahi PT Work Phone: [facility] 04-19-2023 15:01-0400 Body temperature 98.1 [degF] Yoko Abdullahi PT Work Phone: [facility] 04-19-2023 11:16-0400 Body temperature 97.9 [degF] Leatha Gaona RN Work Phone: [facility] 04-19-2023 11:16-0400 Body weight 43.09 kg Leatha Gaona RN Work Phone: [facility] 04-19-2023 11:16-0400 Diastolic blood pressure 58 mm[Hg] Leatha Gaona RN Work Phone: [facility] 04-19-2023 11:16-0400 Heart rate 60 /min Leatha Gaona RN Work Phone: [facility] 04-19-2023 11:16-0400 Respiratory rate 20 /min Leatha Gaona RN Work Phone: [facility] 04-19-2023 11:16-0400 SaO2% (BldA) [Mass fraction] 96 % Leatha Gaona RN Work Phone: [facility] 04-19-2023 11:16-0400 Systolic blood pressure 102 mm[Hg] Leatha Gaona RN Work Phone: [facility] 04-16-2023 14:51-0400 Body weight 42.64 kg Aubrie Davila MD Work Phone: [facility] 04-16-2023 14:51-0400 Diastolic blood pressure 52 mm[Hg] Aubrie Davila MD Work Phone: [facility] 04-16-2023 14:51-0400 Heart rate 51 /min Aubrie Davila MD Work Phone: [facility] 04-16-2023 14:51-0400 Systolic blood pressure 133 mm[Hg] Aubrie Davila MD Work Phone: [facility] 04-12-2023 15:48-0400 Diastolic blood pressure 64 mm[Hg] Yoko Abdullahi PT Work Phone: [facility] 04-12-2023 15:48-0400 Heart rate 76 /min Yoko Abdullahi PT Work Phone: [facility] 04-12-2023 15:48-0400 SaO2% (BldA) [Mass fraction] 98 % Yoko Abdullahi PT Work Phone: [facility] 04-12-2023 15:48-0400 Systolic blood pressure 126 mm[Hg] Yoko Abdullahi PT Work Phone: [facility] 04-12-2023 15:22-0400 Body temperature 98.6 [degF] Yoko Abdullahi PT Work Phone: [facility] 04-11-2023 11:35-0400 Body temperature 97.9 [degF] Leatha Gaona RN Work Phone: [facility] 04-11-2023 11:35-0400 Body weight 42.19 kg Leatha Gaona RN Work Phone: [facility] 04-11-2023 11:35-0400 Diastolic blood pressure 66 mm[Hg] Leatha Gaona RN Work Phone: [facility] 04-11-2023 11:35-0400 Heart rate 68 /min Leatha Gaona RN Work Phone: [facility] 04-11-2023 11:35-0400 Respiratory rate 18 /min Leatha Gaona RN Work Phone: [facility] 04-11-2023 11:35-0400 SaO2% (BldA) [Mass fraction] 98 % Leatha Gaona RN Work Phone: [facility] 04-11-2023 11:35-0400 Systolic blood pressure 112 mm[Hg] Leatha Gaona RN Work Phone: [facility] 04-08-2023 13:02-0400 Body weight 43 kg Karlos Hill MD Work Phone: [facility] 04-08-2023 13:02-0400 Diastolic blood pressure 59 mm[Hg] Karlos Hill MD Work Phone: [facility] 04-08-2023 13:02-0400 Heart rate 64 /min Karlos Hill MD Work Phone: [facility] 04-08-2023 13:02-0400 Systolic blood pressure 108 mm[Hg] Karlos Hill MD Work Phone: [facility] 04-03-2023 15:16-0400 Body temperature 98.6 [degF] Yoko Abdullahi PT Work Phone: [facility] 04-03-2023 15:16-0400 Diastolic blood pressure 58 mm[Hg] Yoko Abdullahi PT Work Phone: [facility] 04-03-2023 15:16-0400 Heart rate 66 /min Yoko Luongeman PT Work Phone: [facility] 04-03-2023 15:16-0400 SaO2% (BldA) [Mass fraction] 98 % Yoko Abdullahi PT Work Phone: [facility] 04-03-2023 15:16-0400 Systolic blood pressure 118 mm[Hg] Yoko Abdullahi PT Work Phone: [facility] 03-27-2023 15:41-0400 Body temperature 98.6 [degF] Pj Heller NETWORK DESIGN ARCHITECT Work Phone: [facility] 03-27-2023 15:41-0400 Diastolic blood pressure 60 mm[Hg] Pj Heller NETWORK DESIGN ARCHITECT Work Phone: [facility] 03-27-2023 15:41-0400 Heart rate 64 /min Pj Heller NETWORK DESIGN ARCHITECT Work Phone: [facility] 03-27-2023 15:41-0400 Respiratory rate 18 /min Pj Heller NETWORK DESIGN ARCHITECT Work Phone: [facility] 03-27-2023 15:41-0400 SaO2% (BldA) [Mass fraction] 99 % Pj Heller NETWORK DESIGN ARCHITECT Work Phone: [facility] 03-27-2023 15:41-0400 Systolic blood pressure 111 mm[Hg] Pj Heller NETWORK DESIGN ARCHITECT Work Phone: [facility] 03-21-2023 09:31-0400 Body weight 42.64 kg Mayank Quintanilla INSURANCE AGENTS SUPERVISOR.CLIENT SERVICES REPRESENTATIVE Work Phone: [facility] 03-21-2023 09:31-0400 Diastolic blood pressure 60 mm[Hg] Mayank Quintanilla INSURANCE AGENTS SUPERVISOR.CLIENT SERVICES REPRESENTATIVE Work Phone: [facility] 03-21-2023 09:31-0400 Heart rate 64 /min Mayank Quintanilla INSURANCE AGENTS SUPERVISOR.CLIENT SERVICES REPRESENTATIVE Work Phone: [facility] 03-21-2023 09:31-0400 SaO2% (BldA) [Mass fraction] 99 % Mayank Quintanilla INSURANCE AGENTS SUPERVISOR.CLIENT SERVICES REPRESENTATIVE Work Phone: [facility] 03-21-2023 09:31-0400 Systolic blood pressure 114 mm[Hg] Mayank Quintanilla INSURANCE AGENTS SUPERVISOR.CLIENT SERVICES REPRESENTATIVE Work Phone: [facility] 03-19-2023 17:15-0400 Body temperature 98.49 [degF] Romy Gasca RN Work Phone: [facility] 03-19-2023 17:15-0400 Diastolic blood pressure 68 mm[Hg] Romy Gasca RN Work Phone: [facility] 03-19-2023 17:15-0400 Heart rate 65 /min Romy Gasca RN Work Phone: [facility] 03-19-2023 17:15-0400 Respiratory rate 18 /min Romy Gasca RN Work Phone: [facility] 03-19-2023 17:15-0400 SaO2% (BldA) [Mass fraction] 96 % Romy Gasca RN Work Phone: [facility] 03-19-2023 17:15-0400 Systolic blood pressure 116 mm[Hg] Romy Gasca RN Work Phone: [facility] 03-13-2023 15:52-0400 Body temperature 97.9 [degF] Michelle Aranda RN Work Phone: [facility] 03-13-2023 15:52-0400 Diastolic blood pressure 78 mm[Hg] Michelle Aranda RN Work Phone: [facility] 03-13-2023 15:52-0400 Heart rate 58 /min Michelle Aranda RN Work Phone: [facility] 03-13-2023 15:52-0400 Respiratory rate 18 /min Michelle Aranda RN Work Phone: [facility] 03-13-2023 15:52-0400 SaO2% (BldA) [Mass fraction] 99 % Michelle Aranda RN Work Phone: [facility] 03-13-2023 15:52-0400 Systolic blood pressure 130 mm[Hg] Michelle Aranda RN Work Phone: [facility] 03-13-2023 13:00-0400 Body temperature 98.1 [degF] Pj Heller NETWORK DESIGN ARCHITECT Work Phone: [facility] 03-13-2023 13:00-0400 Diastolic blood pressure 66 mm[Hg] Pj Heller NETWORK DESIGN ARCHITECT Work Phone: [facility] 03-13-2023 13:00-0400 Heart rate 56 /min Pj Heller NETWORK DESIGN ARCHITECT Work Phone: [facility] 03-13-2023 13:00-0400 SaO2% (BldA) [Mass fraction] 97 % Pj Heller NETWORK DESIGN ARCHITECT Work Phone: [facility] 03-13-2023 13:00-0400 Systolic blood pressure 108 mm[Hg] Pj Heller NETWORK DESIGN ARCHITECT Work Phone: [facility] 03-13-2023 12:19-0400 Body temperature 97.81 [degF] Anuradha Jose OT/L Work Phone: [facility] 03-13-2023 12:19-0400 Diastolic blood pressure 60 mm[Hg] Anuradha Jose OT/L Work Phone: [facility] 03-13-2023 12:19-0400 Heart rate 72 /min Anuradha Jose OT/L Work Phone: [facility] 03-13-2023 12:19-0400 Respiratory rate 18 /min Anuradha Jose OT/L Work Phone: [facility] 03-13-2023 12:19-0400 SaO2% (BldA) [Mass fraction] 98 % Anuradha Jose OT/L Work Phone: [facility] 03-13-2023 12:19-0400 Systolic blood pressure 112 mm[Hg] Anuradha Jose OT/L Work Phone: [facility] 03-08-2023 13:54-0400 Body temperature 98.6 [degF] Anca Eagle PT Work Phone: [facility] 03-08-2023 13:54-0400 Diastolic blood pressure 60 mm[Hg] Anca Mcnairdo PT Work Phone: [facility] 03-08-2023 13:54-0400 Heart rate 70 /min Anca Mcnairdo PT Work Phone: [facility] 03-08-2023 13:54-0400 SaO2% (BldA) [Mass fraction] 99 % Anca Eagle PT Work Phone: [facility] 03-08-2023 13:54-0400 Systolic blood pressure 102 mm[Hg] Anca Mcnairdo PT Work Phone: [facility] 03-07-2023 15:47-0400 Body height 152.4 cm Margot Decker RN Work Phone: [facility] 03-07-2023 15:47-0400 Body temperature 97.81 [degF] Margot Decker RN Work Phone: [facility] 03-07-2023 15:47-0400 Body weight 45.36 kg Margot Decker RN Work Phone: [facility] 03-07-2023 15:47-0400 Diastolic blood pressure 60 mm[Hg] Margot Decker RN Work Phone: [facility] 03-07-2023 15:47-0400 Heart rate 82 /min Margot Decker RN Work Phone: [facility] 03-07-2023 15:47-0400 Respiratory rate 14 /min Margot Decker RN Work Phone: [facility] 03-07-2023 15:47-0400 SaO2% (BldA) [Mass fraction] 96 % Margot Decker RN Work Phone: [facility] 03-07-2023 15:47-0400 Systolic blood pressure 122 mm[Hg] Margot Decker RN Work Phone: [facility] 03-06-2023 11:08-0400 Body weight 45.36 kg Kurt Saravia MD Work Phone: [facility] 03-06-2023 11:08-0400 Diastolic blood pressure 78 mm[Hg] Kurt Saravia MD Work Phone: [facility] 03-06-2023 11:08-0400 Heart rate 74 /min Kurt Saravia MD Work Phone: [facility] 03-06-2023 11:08-0400 Respiratory rate 14 /min Kurt Saravia MD Work Phone: [facility] 03-06-2023 11:08-0400 Systolic blood pressure 126 mm[Hg] Kurt Saravia MD Work Phone: [facility] 01-24-2023 11:18-0400 Body temperature 98.29 [degF] Mally Calzada PA-C Work Phone: [facility] 01-24-2023 11:18-0400 Body weight 48.53 kg Mally Calzada PA-C Work Phone: [facility] 01-24-2023 11:18-0400 Diastolic blood pressure 62 mm[Hg] Mally Calzada PA-C Work Phone: [facility] 01-24-2023 11:18-0400 Heart rate 62 /min Mally Calzada PA-C Work Phone: [facility] 01-24-2023 11:18-0400 Respiratory rate 16 /min Mally Calzada PA-C Work Phone: [facility] 01-24-2023 11:18-0400 Systolic blood pressure 122 mm[Hg] Mally Calzada PA-C Work Phone: [facility] 12-11-2022 13:20-0500 Diastolic blood pressure 58 mm[Hg] Karlos Hill MD Work Phone: [facility] 12-11-2022 13:20-0500 Heart rate 53 /min Karlos Hill MD Work Phone: [facility] 12-11-2022 13:20-0500 Respiratory rate 16 /min Karlos Hill MD Work Phone: [facility] 12-11-2022 13:20-0500 SaO2% (BldA) [Mass fraction] 99 % Karlos Hill MD Work Phone: [facility] 12-11-2022 13:20-0500 Systolic blood pressure 128 mm[Hg] Karlos Hill MD Work Phone: [facility] 12-11-2022 12:21-0500 Body temperature 96.8 [degF] Karlos Hill MD Work Phone: [facility] 12-04-2022 08:47-0500 Body weight 51.26 kg Kurt Saravia MD Work Phone: [facility] 12-04-2022 08:47-0500 Diastolic blood pressure 76 mm[Hg] Kurt Saravia MD Work Phone: [facility] 12-04-2022 08:47-0500 Heart rate 68 /min Kurt Saravia MD Work Phone: [facility] 12-04-2022 08:47-0500 Respiratory rate 14 /min Kurt Saravia MD Work Phone: [facility] 12-04-2022 08:47-0500 Systolic blood pressure 118 mm[Hg] Kurt Saravia MD Work Phone: [facility] 11-13-2022 15:11-0500 Body height 149.9 cm Colten Oro PA-C Work Phone: [facility] 11-13-2022 15:11-0500 Body temperature 98.01 [degF] Colten Oro PA-C Work Phone: [facility] 11-13-2022 15:11-0500 Body weight 53.98 kg Coltenjae Oro PA-C Work Phone: [facility] 11-13-2022 15:11-0500 Diastolic blood pressure 74 mm[Hg] Coltenjae Oro PA-C Work Phone: [facility] 11-13-2022 15:11-0500 Heart rate 62 /min Colten Oro PA-C Work Phone: [facility] 11-13-2022 15:11-0500 Respiratory rate 14 /min Colten Oro PA-C Work Phone: [facility] 11-13-2022 15:11-0500 SaO2% (BldA) [Mass fraction] 96 % Colten Oro PA-C Work Phone: [facility] 11-13-2022 15:11-0500 Systolic blood pressure 126 mm[Hg] Colten Oro PA-C Work Phone: [facility] 09-20-2022 12:50-0500 Diastolic blood pressure 78 mm[Hg] Kurt Saravia MD Work Phone: [facility] 09-20-2022 12:50-0500 Systolic blood pressure 122 mm[Hg] Kurt Saravia MD Work Phone: [facility] 09-20-2022 10:00-0500 Body height 151.1 cm Kurt Saravia MD Work Phone: [facility] 09-20-2022 10:00-0500 Body weight 56.7 kg Kurt Saravia MD Work Phone: [facility] 09-20-2022 10:00-0500 Heart rate 72 /min Kurt Saravia MD Work Phone: [facility] 09-20-2022 10:00-0500 Respiratory rate 16 /min Kurt Saravia MD Work Phone: [facility] 09-10-2022 09:30-0500 Body weight 56.7 kg Karlos Hill MD Work Phone: [facility] 09-10-2022 09:30-0500 Diastolic blood pressure 52 mm[Hg] Karlos Hill MD Work Phone: [facility] 09-10-2022 09:30-0500 Heart rate 60 /min Karlos Hill MD Work Phone: [facility] 09-10-2022 09:30-0500 Respiratory rate 16 /min Karlos Hill MD Work Phone: [facility] 09-10-2022 09:30-0500 Systolic blood pressure 145 mm[Hg] Karlos Hill MD Work Phone: [facility] 06-20-2022 19:58-0400 Body temperature 98.2 [degF] Kurt Saravia MD Work Phone: [facility] 06-20-2022 19:58-0400 Body weight 53.07 kg Kurt Saravia MD Work Phone: [facility] 06-20-2022 19:58-0400 Diastolic blood pressure 80 mm[Hg] Kurt Saravia MD Work Phone: [facility] 06-20-2022 19:58-0400 Heart rate 63 /min Kurt Saravia MD Work Phone: [facility] 06-20-2022 19:58-0400 SaO2% (BldA) [Mass fraction] 98 % Kurt Saravia MD Work Phone: [facility] 06-20-2022 19:58-0400 Systolic blood pressure 132 mm[Hg] Kurt Saravia MD Work Phone: [facility] 06-04-2022 09:19-0400 Body weight 52.16 kg Karlos Hill MD Work Phone: [facility] 06-04-2022 09:19-0400 Diastolic blood pressure 72 mm[Hg] Karlos Hill MD Work Phone: [facility] 06-04-2022 09:19-0400 Heart rate 61 /min Karlos Hill MD Work Phone: [facility] 06-04-2022 09:19-0400 Respiratory rate 16 /min Karlos Hill MD Work Phone: [facility] 06-04-2022 09:19-0400 Systolic blood pressure 136 mm[Hg] Karlos Hill MD Work Phone: [facility] 03-21-2022 10:07-0400 Body weight 52.62 kg Kurt Saravia MD Work Phone: [facility] 03-21-2022 10:07-0400 Diastolic blood pressure 70 mm[Hg] Kurt Saravia MD Work Phone: [facility] 03-21-2022 10:07-0400 Heart rate 78 /min Kurt Saravia MD Work Phone: [facility] 03-21-2022 10:07-0400 Respiratory rate 14 /min Kurt Saravia MD Work Phone: [facility] 03-21-2022 10:07-0400 Systolic blood pressure 122 mm[Hg] Kurt Saravia MD Work Phone: [facility] 03-01-2022 10:40-0400 Body height 149.9 cm Bolivar Corodba DO Work Phone: [facility] 03-01-2022 10:40-0400 Body weight 53.07 kg Bolivar Cordoba DO Work Phone: [facility] 03-01-2022 10:40-0400 Diastolic blood pressure 70 mm[Hg] Bolivar Cordoba DO Work Phone: [facility] 03-01-2022 10:40-0400 Heart rate 62 /min Bolivar Cordoba DO Work Phone: [facility] 03-01-2022 10:40-0400 SaO2% (BldA) [Mass fraction] 98 % Bolivar Cordoba DO Work Phone: [facility] 03-01-2022 10:40-0400 Systolic blood pressure 124 mm[Hg] Bolivar Cordoba DO Work Phone: [facility] 05-11-2020 22:58-0400 BMI (Body Mass Index) 19.84 kg/m2 [facility] [place] 05-11-2020 22:58-0400 Body Temperature 98.6 [degF] [facility] [place] 05-11-2020 22:58-0400 Body weight 47.63 kg Larry Pollard [facility] [place] 05-11-2020 22:58-0400 BP Diastolic 56 mm[Hg] Larry Pollard [facility] [place] 05-11-2020 22:58-0400 BP Systolic 157 mm[Hg] Larry [facility] [place] 05-11-2020 22:58-0400 Height 154.9 cm [facility] [place] 05-11-2020 22:58-0400 Pulse (Heart Rate) 59 /min [facility] [place] [place] 05-11-2020 22:58-0400 Pulse Oximetry 100 % [facility], [place] 05-11-2020 22:58-0400 Respiratory Rate 16 /min [facility] [place] Encounters Encounter Date Encounter Type Care Provider Facility Start: 07-22-2024 End: 07-22-2024 Telephone encounter Brenda Sanabria MA Family Medicine Jorge nolan Comment on above: Appointment ([facility]) Start: 07-22-2024 End: 07-22-2024 Subsequent hospital visit by physician Herve [facility] [place] Work Phone: Radiology Comment on above: Acute bilateral low back pain without sciatica [M54.50] Start: 07-22-2024 End: 07-22-2024 ambulatory KURT SARAVIA Facility:[facility] Start: 07-22-2024 End: 07-22-2024 Patient encounter procedure Kurt Saravia MD Work Phone: Family Medicine [place] Comment on above: Acute bilateral low back pain without sciatica (Primary Dx); Left hip pain; Spinal stenosis, lumbar region, with neurogenic claudication; Decreased sensation of lower extremity; Vertigo; Encounter for immunization Start: 07-21-2024 End: 07-21-2024 ambulatory Leno Lopez RN Theatrical Variety Agent Management Comment on above: CDM (Telephonic Outr each ) Start: 07-08-2024 End: 07-08-2024 Telephone encounter Colten Oro PA-C Work Phone: Urology Comment on above: Orders Start: 06-23-2024 End: 06-23-2024 ambulatory Leno Lopez RN Theatrical Vari[employer] Management Comment on above: CDM (Telephonic Outr each ) Start: 06-16-2024 End: 06-16-2024 Telephone encounter Brenda New CARDOSO [facility] Start: 06-15-2024 End: 06-15-2024 Home visit Kurt Saravia MD Work Phone: [facility] [place] Comment on above: Senile dementia, unc omplicated (HCC) (Primary Dx) Start: 06-09-2024 End: 06-10-2024 Telephone encounter Kurt Saravia MD Work Phone: [facility] [place] Comment on above: home health calling Start: 05-29-2024 End: 05-29-2024 ambulatory Leno Lopez RN Theatrical Variety Agent Management Comment on above: CDM (Telephonic Outr each ) Start: 04-30-2024 ambulatory Leno Lopez RN Amb ulatory Care Management Comment on above: CDM (Telephonic Outr each ) Start: 04-21-2024 Telephone encounter Robby LOYA S [facility] Comment on above: Home Care Start: 04-14-2024 Telephone encounter Kurt Saravia MD Work Phone: [facility] [place] Comment on above: Results Start: 04-08-2024 End: 04-08-2024 ambulatory KURT SARAVIA Facility:[facility] Start: 04-08-2024 End: 04-08-2024 ambulatory KURT SARAVIA Facility:[facility] Start: 04-08-2024 End: 04-08-2024 Patient encounter procedure Kurt Saravia MD Work Phone: [facility] [place] Comment on above: Recurrent major depr essive disorder, in remission (HCC) (Primary Dx); Falls frequently; Balance problem; Dementia without behavioral disturbance (HCC); Essential hypertension; Hypothyroidism (acquired); Stage 3a chronic kidney disease (HCC); Encounter for immunization Start: 03-24-2024 ambulatory Leno Lopez RN Amb ulatory Care Management Comment on above: CDM (Telephonic Outr each ) Start: 03-23-2024 Telephone encounter Kurt Saravia MD Work Phone: [facility] [place] Comment on above: Appointment Start: 03-17-2024 ambulatory Kurt mccann MD Work Phone: [facility] [place] Comment on above: VNA Start: 03-11-2024 Telephone encounter Kamilah Maradiagamery Grady SW Navigation Start: 03-10-2024 End: 03-10-2024 ambulatory Leno Lopez RN Theatrical Variety Agent Management Comment on above: CDM (Telephonic Outr each) Start: 03-10-2024 End: 03-10-2024 Patient encounter procedure Saray Benjamin [facility] Work Phone: Neurology Comment on above: Dementia, unspecifie d dementia severity, unspecified dementia type, unspecified whether behavioral, psychotic, or mood disturbance or anxiety (HCC) (Primary Dx); Hypotension, unspecified hypotension type; Dizziness; Lightheadedness; Left-sided chest wall pain Start: 03-09-2024 ambulatory Leno Lopez RN Amb ulatory Care Management Comment on above: CDM (Telephonic Outr each ) Start: 02-17-2024 Telephone encounter Neurology Provid er Neurology Comment on above: Patient Update Start: 02-11-2024 ambulatory Leno Lopez RN Amb ulatory Care Management Comment on above: CDM (Telephonic Outr each ) Start: 02-10-2024 ambulatory Leno Lopez RN Amb ulatory Care Management Comment on above: CDM (Telephonic Outr each ) Start: 02-03-2024 ambulatory Leno Lopez RN Amb ulatory Care Management Comment on above: CDM (Telephonic Outr each ) Start: 02-03-2024 Chart abstracting Brenda Sanabria MA [facility] [place] Comment on above: ER F/U Start: 01-31-2024 ambulatory Kurt mccann MD Work Phone: [facility] [place] Comment on above: Foot Issue Start: 01-29-2024 Refill Kurt mccann MD Work Phone: [facility] [place] Comment on above: Refill Request Start: 01-24-2024 Refill Aubrie Davila MD Work Phone: Neurology Comment on above: Refill Request Start: 01-08-2024 ambulatory Leno Lopez RN Amb ulatory Care Management Comment on above: CDM (Telephonic Outr each ) Start: 01-07-2024 Refill Kurt mccann MD Work Phone: [facility] [place] Comment on above: Refill Request CDM (Telephonic Outr each ) Start: 12-17-2023 ambulatory Kurt mccann MD Work Phone: [facility] [place] Comment on above: New glasses Start: 12-12-2023 ambulatory Leno Lopze RN Amb ulatory Care Management Comment on above: CDM (Telephonic Outr each ) Start: 12-11-2023 ambulatory Leno Lopez RN Amb ulatory Care Management Comment on above: CDM (Telephonic Outr each ) Start: 11-29-2023 Refill Kurt mccann MD Work Phone: [facility] [place] Comment on above: Refill Request Start: 11-26-2023 Telephone encounter Yelena kapoor [facility] Work Phone: Psychology Comment on above: bh consult Patient Update Start: 11-26-2023 End: 11-26-2023 ambulatory COLTEN TRENT Facility:[facility] Start: 11-26-2023 End: 11-26-2023 Patient encounter procedure Colten Trent PA-C Work Phone: Urology Comment on above: Overactive bladder ( Primary Dx); Urgency of urination Start: 11-26-2023 End: 11-26-2023 ambulatory MAYANK QUINTANILLA Facility:[facility] Start: 11-26-2023 End: 11-26-2023 Patient encounter procedure Mayank Quintanilla INSURANCE AGENTS SUPERVISOR.CLIENT SERVICES REPRESENTATIVE Work Phone: [facility] [place] Comment on above: Anterior chest wall pain (Primary Dx); 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; Dementia, unspecified dementia severity, unspecified dementia type, unspecified whether behavioral, psychotic, or mood disturbance or anxiety (HCC) Start: 11-25-2023 Telephone encounter Kurt Saravia MD Work Phone: [facility] [place] Comment on above: Appointment Start: 11-11-2023 ambulatory Leno Lopez RN Amb ulatory Care Management Comment on above: CDM (Telephonic Outr each ) Start: 11-09-2023 ambulatory Mandy Kessler RN [facility] Comment on above: Chest Pain Start: 11-09-2023 End: 11-09-2023 Emergency department patient visit [facility] Facility:[facility] Start: 10-18-2023 End: 10-18-2023 ambulatory KURT SARAVIA Facility:[facility] Start: 09-25-2023 End: 09-25-2023 Ophthalmic examination and evaluation Kurt Saravia MD Work Phone: [facility] Work Phone: Start: 09-25-2023 End: 09-25-2023 Patient encounter procedure Kurt Saravia MD Work Phone: [facility] [place] Comment on above: Type 2 diabetes valerie itus with stage 3a chronic kidney disease, without long-term current use of insulin (HCC) (Primary Dx); Diabetic eye exam (HCC); Essential hypertension; Mixed hyperlipidemia; Hypothyroidism (acquired); Bilateral carotid artery stenosis; Moderate aortic insufficiency; Stage 3a chronic kidney disease (HCC); Recurrent major depressive disorder, in remission (HCC); Agitation; Dementia without behavioral disturbance (HCC); Essential tremor; Smoker; Pain in joint, multiple sites; Memory deficit; Medication management; Gastroesophageal reflux disease without esophagitis; Primary insomnia Start: 09-25-2023 End: 09-25-2023 ambulatory Leno Lopez RN Theatrical Variety Agent Management Comment on above: Opened In Error Start: 08-28-2023 ambulatory Leno Lopez RN Amb ulatory Care Management Comment on above: CDM (Telephonic Outr each) Start: 08-27-2023 ambulatory Leno Lopez RN Amb ulatory Care Management Comment on above: CDM (Telephonic Outr each ) Start: 08-23-2023 End: 08-23-2023 ambulatory KURT SARAVIA Facility:[facility] Start: 08-09-2023 Refill Kurt mccann MD Work Phone: [facility] [place] Comment on above: Refill Request Start: 08-06-2023 End: 08-06-2023 [facility] Start: 07-31-2023 ambulatory Leno Lopez RN Amb ulatory Care Management Comment on above: CDM (Telephonic Outr each ) Start: 07-25-2023 Telephone encounter Pepper EMERY Work Phone: Neurology Start: 07-24-2023 End: 07-24-2023 [facility]ulatory [facility] Start: 07-22-2023 ambulatory Kurt mccann MD Work Phone: [facility] [place] Comment on above: Walker Start: 07-19-2023 ambulatory Leno Lopez RN Amb ulatory Care Management Start: 07-16-2023 Telephone encounter Kurt Saravia MD Work Phone: Family [facility] [place] Comment on above: Walker Start: 07-15-2023 Telephone encounter Kamilah Rasmussen Jeni Comment on above: Patient Update Start: 07-15-2023 End: 07-15-2023 Office outpatient visit 40 minutes Mally Calzada PA-C Work Phone: Family Medicine [place] Comment on above: Dementia without beh avioral disturbance (HCC) (Primary Dx); Encounter for immunization; Family conflict Start: 06-14-2023 Refill Kurt mccann MD Work Phone: Family [facility] [place] Comment on above: Refill Request Patient Update Start: 05-27-2023 ambulatory Norma garcía RN Work Phone: [employer]rical Vari[employer] Agent Management Comment on above: Community Monitoring Outreach (Enrollment CDM) Start: 04-23-2023 End: 04-23-2023 Home visit Leatha Gaona RN Work Phone: [facility] Comment on above: SN DISC DC W VISIT Start: 04-22-2023 Telephone encounter Aubrie Davila MD Work Phone: Neurology Comment on above: Materials Branch Chief - O ther Start: 04-19-2023 End: 04-19-2023 Social Work Pepper EMERY Work Phone: Neurology Comment on above: Cognitive impairment (Primary Dx) PT ROUTINE SN ROUTINE Start: 04-17-2023 Telephone encounter Aubrie Davila MD Work Phone: Neurology Comment on above: Medication Question Start: 04-16-2023 End: 04-16-2023 Patient encounter procedure Aubrie Davila MD Work Phone: Neurology Comment on above: Dementia without beh avioral disturbance (HCC) (Primary Dx); Cognitive impairment; Depression, unspecified depression type; Restlessness and agitation Start: 04-12-2023 End: 04-12-2023 Home visit Yoko Abdullahi PT Work Phone: [facility] Comment on above: PT ROUTINE Start: 04-12-2023 Telephone encounter Yoko Abdullahi PT Work Phone: [facility] Comment on above: Home Care (Request t o fax order for rollator) Start: 04-11-2023 End: 04-11-2023 Home visit Leatha Gaona RN Work Phone: [facility] Comment on above: SN ROUTINE Start: 04-08-2023 End: 04-08-2023 Patient encounter procedure Karlos Hill MD Work Phone: Gastroenterology Comment on above: Lymphocytic colitis (Primary Dx); Dysphagia, unspecified type; Esophageal stricture Start: 04-05-2023 Telephone encounter Yoko Abdullahi PT Work Phone: [facility] Comment on above: Home Care (Patient r eported fall) Start: 04-03-2023 End: 04-03-2023 Home visit Yoko Abdullahi PT Work Phone: [facility] Comment on above: PT REASSESSMENT Start: 03-30-2023 Home visit Kurt mccann MD Work Phone: [facility] [place] Comment on above: Hypopotassemia (Prim marcos Dx) Start: 03-28-2023 End: 03-28-2023 Home visit Yoko Morrow LPN Work Phone: [facility] Comment on above: SN UNMADE VISIT Start: 03-27-2023 End: 03-27-2023 Home visit Pj Brantley NETWORK DESIGN ARCHITECT Work Phone: [facility] Comment on above: NETWORK DESIGN ARCHITECT ROUTINE Start: 03-25-2023 Telephone encounter Home Care [facility] Comment on above: Home Care (SN visit unmade) Start: 03-25-2023 End: 03-25-2023 Home visit Annie Sanchez RN Work Phone: [facility] Comment on above: SN UNMADE VISIT Start: 03-22-2023 Telephone encounter Kurt Saravia MD Work Phone: [facility] Comment on above: Results Start: 03-21-2023 End: 03-21-2023 Patient encounter procedure Mayank Quintanilla APRN.CLIENT SERVICES REPRESENTATIVE Work Phone: [facility] Comment on above: Advance directive di scussed with patient (Primary Dx); Hypokalemia; Essential hypertension; Type 2 diabetes mellitus with stage 3a chronic kidney disease, without long-term current use of insulin (HCC); Stage 3a chronic kidney disease (HCC); Mixed hyperlipidemia; Hypothyroidism (acquired); Ex-smoker; Osteoporosis without current pathological fracture, unspecified osteoporosis type; Failure to thrive in adult; Dementia without behavioral disturbance (HCC) Start: 03-19-2023 End: 03-19-2023 Home visit Romy Gasca RN Work Phone: [facility] Comment on above: SN ROUTINE Start: 03-13-2023 End: 03-13-2023 Home visit Michelle Aranda RN Work Phone: [facility] Comment on above: SN ROUTINE OT EVAL NETWORK DESIGN ARCHITECT ROUTINE Start: 03-12-2023 End: 03-12-2023 Home visit Annie Sanchez RN Work Phone: [facility] Comment on above: SN UNMADE VISIT Start: 03-12-2023 Telephone encounter Annie chauhan RN Work Phone: [facility] Comment on above: Home Care (Unmade SN visit) Start: 03-08-2023 End: 03-08-2023 Home visit Anca Eagle PT Work Phone: [facility] Comment on above: PT EVAL Start: 03-07-2023 Telephone encounter Kurt Saravia MD Work Phone: [facility] Comment on above: Home Care Start: 03-07-2023 End: 03-07-2023 Home visit Margot Decker RN Work Phone: [facility] Comment on above: SN SOC Start: 03-06-2023 Ophthalmic examinati on and evaluation Kurt Saravia MD Work Phone: [facility] Work Phone: Start: 03-06-2023 End: 03-06-2023 Patient encounter procedure Kurt Saravia MD Work Phone: Family Medicine [place] Comment on above: Hypokalemia (Primary Dx); Failure to thrive in adult; Essential hypertension; Hypothyroidism (acquired); Stage 3a chronic kidney disease (HCC); Type 2 diabetes mellitus with stage 3a chronic kidney disease, without long-term current use of insulin (HCC); Unsteady gait Start: 03-04-2023 Telephone encounter Darby Almeidaanitra anderson INSTRUCTIONAL MATERIAL DIRECTOR Work Phone: [facility] Comment on above: Home Care (Pt confir mation call ) Home Care (MD dain mckeon ) Start: 03-01-2023 End: 03-03-2023 ambulatory [facility] Facility:[facility] Start: 02-05-2023 Telephone encounter Kurt Saravia MD Work Phone: Family Medicine [place] Comment on above: Pharmacy Call/Reques t Start: 01-28-2023 Telephone encounter Kurt Saravia MD Work Phone: [facility] [place] Comment on above: Results Start: 01-25-2023 Telephone encounter Mally hayes PA-C Work Phone: Family Medicine [place] Comment on above: Results Start: 01-24-2023 End: 01-24-2023 Patient encounter procedure Mally Calzada PA-C Work Phone: [facility] [place] Comment on above: Dementia without beh avioral disturbance (HCC) (Primary Dx); Cognitive impairment; Abdominal pain, unspecified abdominal location; Memory deficit Start: 01-02-2023 Refill Kurt mccann MD Work Phone: [facility] [place] Comment on above: Refill Request Start: 12-27-2022 Telephone encounter Kurt Saravia MD Work Phone: [facility] [place] Comment on above: Medication Request Start: 12-20-2022 Telephone encounter Mally hayes PA-C Work Phone: [facility] [place] Comment on above: Results Start: 12-19-2022 End: 12-19-2022 Subsequent hospital visit by physician [employer] [facility] [place] (I-Stat/1.5t) Work Phone: Radiology Comment on above: Cognitive impairment , mild, so stated [G31.84] Start: 12-18-2022 Telephone encounter Karlos gallegos MD Work Phone: Gastroenterology Comment on above: Results Start: 12-11-2022 End: 12-11-2022 Orders Only Karlos Hill MD Work Phone: Gastroenterology Comment on above: Weight loss [R63.4] Start: 12-05-2022 Telephone encounter [facility] Comment on above: Medication Problem Patient Update (Need s EGD) Start: 12-04-2022 Telephone encounter Kurt Saravia MD Work Phone: [facility] Comment on above: Results Start: 12-04-2022 End: 12-04-2022 Patient encounter procedure Kurt Saravia MD Work Phone: [facility] Comment on above: Dizziness (Primary D x); Gastritis without bleeding, unspecified chronicity, unspecified gastritis type; Weight loss; Hypothyroidism (acquired); Hypokalemia; Hypomagnesemia Start: 11-30-2022 End: 11-30-2022 Emergency department patient visit STEVEN JEFFRIES Facility:[facility] Start: 11-30-2022 Telephone encounter Kurt Saravia MD Work Phone: [facility] [place] Comment on above: Patient Update Start: 11-26-2022 Telephone encounter Mally Morrow abigail PA-C Work Phone: [facility] [place] Comment on above: Results Medication Problem Start: 11-22-2022 Telephone encounter Mally Morrow abigail PA-C Work Phone: [facility] [place] Comment on above: Results Start: 11-21-2022 End: 11-21-2022 Subsequent hospital visit by physician Xr [facility] [place] Work Phone: Radiology Comment on above: Lumbar back pain [M5 4.50] Start: 11-13-2022 End: 11-13-2022 Patient encounter procedure Colten Oro PA-C Work Phone: Urology Comment on above: Overactive bladder ( Primary Dx); Urgency of urination Start: 11-02-2022 Refill Colten Oro PA-C Work Phone: Urology Comment on above: Refill Request Start: 10-25-2022 Telephone encounter Karlos gallegos MD Work Phone: Gastroenterology Comment on above: Results Start: 10-09-2022 End: 10-09-2022 Subsequent hospital visit by physician [facility] Work Phone: Radiology Comment on above: Dysphagia, unspecifi ed type [R13.10] Start: 10-05-2022 Telephone encounter Kurt Saravia MD Work Phone: [facility] [place] Comment on above: Results Start: 09-24-2022 Ophthalmic examinati on and evaluation Kurt Saravia MD Work Phone: [facility] Start: 09-20-2022 Telephone encounter Kurt Saravia MD Work Phone: [facility] [place] Comment on above: Carotid US Authoriza tion Start: 09-20-2022 End: 09-20-2022 Patient encounter procedure Kurt Saravia MD Work Phone: [facility] [place] Comment on above: Medicare annual well ness visit, subsequent (Primary Dx); Type 2 diabetes mellitus with stage 3a chronic kidney disease, without long-term current use of insulin (HCC); Essential hypertension; Mixed hyperlipidemia; Hypothyroidism (acquired); Moderate aortic insufficiency; Bilateral carotid artery stenosis; Stage 3a chronic kidney disease (HCC); Recurrent major depressive disorder, in remission (HCC); Agitation; Essential tremor; Lymphocytic colitis; Encounter for immunization Start: 09-10-2022 End: 09-10-2022 Patient encounter procedure Karlos Hill MD Work Phone: Gastroenterology Comment on above: Lymphocytic colitis (Primary Dx); Dysphagia, unspecified type Start: 06-22-2022 Telephone encounter Kurt Saravia MD Work Phone: [facility] [place] Comment on above: Results Start: 06-20-2022 End: 06-20-2022 Patient encounter procedure Kurt Saravia MD Work Phone: [facility] [place] Comment on above: Epigastric pain ([facility] sherry Dx); Esophageal dysphagia Start: 06-06-2022 Telephone encounter Kurt Saravia MD Work Phone: [facility] [place] Comment on above: Patient Question Start: 06-04-2022 End: 06-04-2022 Patient encounter procedure Karlos Hill MD Work Phone: Gastroenterology Comment on above: Lymphocytic colitis (Primary Dx); Oral phase dysphagia Start: 05-07-2022 Refill Kutr mccann MD Work Phone: [facility] [place] Comment on above: Refill Request Start: 03-21-2022 End: 03-21-2022 Patient encounter procedure Kurt Saravia MD Work Phone: [facility] [place] Comment on above: Type 2 diabetes valerie itus without complication, without long- term current use of insulin (HCC) (Primary Dx); Essential hypertension; Mixed hyperlipidemia; Hypothyroidism (acquired); Bilateral carotid artery stenosis; Moderate aortic insufficiency; Agitation; Recurrent major depressive disorder, in remission (HCC); Essential tremor; Pain in joint, multiple sites; Protein deficiency (HCC); Advance directive discussed with patient; Renal insufficiency; Living will on file; Encounter for screening mammogram for breast cancer; Lymphocytic colitis Start: 03-01-2022 End: 03-01-2022 Patient encounter procedure Bolivar Cordoba DO Work Phone: Cardiology Comment on above: Sinus bradycardia (P rimary Dx); Nonrheumatic aortic (valve) insufficiency; Essential hypertension; Mixed hyperlipidemia Start: 02-07-2022 Telephone encounter Brenda Sanabria MA [facility] Comment on above: Medication Problem Start: 01-08-2022 Telephone encounter Kurt Saravia MD Work Phone: [facility] Comment on above: Refill Request; Medi caiton request Start: 07-07-2020 Patient encounter procedure Kurt Saravia MD Work Phone: [facility] Work Phone: Start: 05-11-2020 End: 05-11-2020 Emergency department patient visit Larry Pollard Work Phone: [facility] ED Comment on above: Wrist pain, acute, r ight (Primary Dx); History of osteoporosis Start: 12-26-2016 End: 09-18-2019 Patient encounter status Kurt Saravia MD Work Phone: [facility] Procedures Date Procedure Procedure Detail Performing Clinician Start: 07-22-2024 PFIZER-BIONTECH COVID-19 VACCINE AGE 12+ YR (COMIRNATY) Kurt Saravia MD Work Phone: Start: 04-08-2024 PFIZER-BIONTECH COVID-19 VACCINE () AGE 12+ YR Kurt Saravia MD Work Phone: Start: 11-26-2023 Urnls dip stick/tablet rgnt auto w/o microscopy Colten Oro PA-C Work Phone: Start: 07-15-2023 INFLUENZA VACCINE, PRSV FREE, AGE 65+ YR, HIGH DOSE, QUADRIVALENT (FLUZONE HIGH-DOSE) Mally Calzada PA-C Work Phone: Start: 07-15-2023 PFIZER-BIONTECH COVID-19 VACCINE () AGE 12+ YR Mally Calzada PA-C Work Phone: Start: 12-19-2022 Mri brain brain stem w/o contrast material Mally Calzada PA-C Work Phone: Start: 12-11-2022 Level iv surg pathology gross&microscopic exam Karlos Hill MD Work Phone: Start: 12-11-2022 Esophagogastroduodenoscopy transoral diagnostic Karlos Hill MD Work Phone: Start: 11-21-2022 Radex spine cervical 4 or 5 views Christian Calzada PA-C Work Phone: Start: 11-13-2022 Urnls dip stick/tablet rgnt auto w/o microscopy Colten Oro PA-C Work Phone: Start: 10-09-2022 Radiologic exam esophagus single contrast study Karlos Hill MD Work Phone: Start: 09-20-2022 PFIZER-BIONTPixable COVID-19 BIVALENT BOOSTER VACCINE, AGE 12+ YR Kurt Saravia MD Work Phone: Start: 05-11-2020 Radex wrist 2 views Larry Pollard Work Phone: Plan of Treatment Date Care Activity Detail Author Start: 05-29-2028 DTaP/Tdap/Td vaccine (3 - Td) DTaP/Tdap/Td vaccine (3 - Td) [place], [place] Start: 05-29-2028 Urine microalbumin profile [facility] Start: 07-22-2025 Annual PCP Team Catering Server cody Disease Visit Annual PCP Team Chronic Disease Visit [facility] Start: 04-08-2025 Annual PCP Team Catering Server cody Disease Visit Annual PCP Team Chronic Disease Visit [facility] Start: 04-08-2025 BP Controlled (<130/80) BP Controlle d (<130/80) [facility] Start: 04-08-2025 Creatinine measurement Serum Creatin ine [facility] Start: 04-08-2025 Hepatitis B screening Urine Al bumin:Creatinine Ratio [facility] Start: 04-08-2025 Hepatitis B surface antibody level LDL Cholesterol [facility] Start: 12-01-2024 End: 12-01-2024 Patient encounter procedure 12/01/2024 11:30 AM EST Office Visit Urology [address] [place] [address] Colten Oro PA-C [address] [place] [address] One year exam Urology Comment on above: One year exam Start: 11-26-2024 Annual PCP Team Catering Server cody Disease Visit Annual PCP Team Chronic Disease Visit [facility] Start: 10-09-2024 Hemoglobin A1c measurement HbA1C [facility] Start: 09-25-2024 Annual PCP Team Catering Server cody Disease Visit Annual PCP Team Chronic Disease Visit [facility] Start: 09-25-2024 Hepatitis B screening Urine Al bumin:Creatinine Ratio [facility] Start: 09-25-2024 Hepatitis B surface antibody level LDL Cholesterol [facility] Start: 09-25-2024 RSV Vaccine (1 - 1-d ose 60+ series) RSV Vaccine (1 - 1-dose 60+ series) [facility] Comment on above: Postponed from 08/19 (Insurance Coverage) Start: 09-25-2024 RSV Vaccine (1 - 1-d ose 75+ series) RSV Vaccine (1 - 1-dose 75+ series) [facility] Comment on above: Postponed from 08/19 (Insurance Coverage) Start: 09-25-2024 Shingrix Vaccine (2 of 2) Shingrix Vaccine (2 of 2) [facility] Comment on above: Postponed from 08/07 (Insurance Coverage) Start: 08-26-2024 End: 08-26-2024 ambulatory 08/26/2024 11:15 AM EST OT/PT/Speech Visit [facility] [address] [place] [address] OVijaya Leal, PT Vertigo [R42] [facility] Comment on above: Vertigo [R42] Start: 08-23-2024 Annual PCP Team Catering Server cody Disease Visit Annual PCP Team Chronic Disease Visit [facility] Start: 08-23-2024 BP Controlled (<130/80) BP Controlle d (<130/80) [facility] Start: 08-11-2024 End: 08-11-2024 ambulatory 08/11/2024 11:30 AM EST OT/PT/Speech Visit [facility] [address] [place], [place] [id number] Devon Diaz PT Acute bilateral low back pain without sciatica [M54.50]; Left hip pain [M25.552] [facility] Comment on above: Acute bilateral low back pain without sciatica [M54.50]; Left hip pain [M25.552] Start: 08-06-2024 Complete blood count Hemoglobin/Pierre tocrit [facility] Start: 08-06-2024 Creatinine measurement Serum Creatin ine [facility] Start: 08-06-2024 Hemoglobin/Hematocrit Hemoglobin/Hem atocrit [facility] Start: 08-06-2024 Serum Creatinine Serum Creatinine Cl [facility] Start: 07-28-2024 End: 07-28-2024 Patient encounter procedure 07/28/2024 1:00 PM EDT Office Visit [facility] [address] [place] [phone] Mayank Quintanilla APRN.CLIENT SERVICES REPRESENTATIVE [address] [place], [place] [phone] Medicare wellness [facility] Comment on above: Medicare wellness Start: 07-22-2024 End: 07-22-2024 Patient encounter procedure 07/22/2024 1:20 PM EDT Office Visit Family [facility] [address] [place] [phone] Kurt Saravia MD [address] [place], [place] [phone] Follow Up/Acute Problem Visit - PER care clinician [facility] Comment on above: Follow Up/Acute Prob jacqueline Visit - PER RN Start: 07-15-2024 Annual PCP Team Catering Server cody Disease Visit Annual PCP Team Chronic Disease Visit [facility] Start: 06-07-2024 Covid-19 Vaccine ( season) Covid-19 Vaccine () [facility] Start: 06-07-2024 Influenza vaccination Influenza Vacc ine (#1) [facility] Start: 05-11-2024 End: 05-11-2024 Patient encounter procedure 05/11/2024 1:00 PM EDT Office Visit [facility] [address] [place] [address] Mally Calzada PA-C [address] [place] [address] Medicare wellness [facility] Comment on above: Medicare wellness Start: 04-25-2024 BP CONTROLLED (<130/80) BP CONTROLLE D (<130/80) [facility] Start: 04-23-2024 BP CONTROLLED (<130/80) BP CONTROLLE D (<130/80) [facility] Start: 04-19-2024 BP CONTROLLED (<130/80) BP CONTROLLE D (<130/80) [facility] Start: 04-12-2024 BP CONTROLLED (<130/80) BP CONTROLLE D (<130/80) [facility] Start: 04-11-2024 BP CONTROLLED (<130/80) BP CONTROLLE D (<130/80) [facility] Start: 04-06-2024 End: 04-06-2024 Patient encounter procedure 04/06/2024 1:20 PM EDT Office Visit Family [facility] [address] [facility] [place] [address] Mally Calzada PA-C [address] [place] [address] Medicare wellness [facility] Comment on above: Medicare wellness Start: 04-03-2024 BP CONTROLLED (<130/80) BP CONTROLLE D (<130/80) [facility] Start: 03-27-2024 BP CONTROLLED (<130/80) BP CONTROLLE D (<130/80) [facility] Start: 03-26-2024 Hemoglobin A1c measurement HbA1C [facility] Start: 03-21-2024 ANNUAL PCP TEAM DRILL FOREMAN CODY DISEASE VISIT ANNUAL PCP TEAM CHRONIC DISEASE VISIT [facility] Start: 03-21-2024 BP CONTROLLED (<130/80) BP CONTROLLE D (<130/80) [facility] Start: 03-21-2024 Hepatitis B surface antibody level LDL CHOLESTEROL [facility] Start: 03-21-2024 SERUM CREATININE SERUM CREATININE Cl [facility] Start: 03-19-2024 BP CONTROLLED (<130/80) BP CONTROLLE D (<130/80) [facility] Start: 03-13-2024 End: 06-12-2024 ALBUMIN/CREAT RATIO RND UR ALBUMIN/CREAT RATIO RND UR Lab Routine Type 2 diabetes mellitus with stage 3a chronic kidney disease, without long-term current use of insulin (HCC) Expected: 03/13/2024, Expires: 06/12/2024 [facility] Work Phone: Comment on above: Expected: 03/13/2024 , Expires: 06/12/2024 Start: 03-13-2024 End: 06-12-2024 CBC W Auto Differential panel - Blood CBC + DIFF Lab Routine Type 2 diabetes mellitus with stage 3a chronic kidney disease, without long-term current use of insulin (HCC) Hypothyroidism (acquired) Stage 3a chronic kidney disease (HCC) Expected: 03/13/2024, Expires: 06/12/2024 [facility] Work Phone: Comment on above: Expected: 03/13/2024 , Expires: 06/12/2024 Start: 03-13-2024 End: 06-12-2024 Cobalamin (Vitamin B12) [Mass/volume] in Serum or Plasma VITAMIN B12 BLOOD Lab Routine Medication management Gastroesophageal reflux disease without esophagitis Expected: 03/13/2024, Expires: 06/12/2024 [facility] Work Phone: Comment on above: Expected: 03/13/2024 , Expires: 06/12/2024 Start: 03-13-2024 End: 06-12-2024 Comprehensive metabolic 2000 panel - Serum or Plasma COMP METABOLIC PANEL Lab Routine Type 2 diabetes mellitus with stage 3a chronic kidney disease, without long-term current use of insulin (HCC) Essential hypertension Mixed hyperlipidemia Stage 3a chronic kidney disease (HCC) Expected: 03/13/2024, Expires: 06/12/2024 [facility] Work Phone: Comment on above: Expected: 03/13/2024 , Expires: 06/12/2024 Start: 03-13-2024 End: 06-12-2024 Hemoglobin A1c in Blood HGB A1C Lab Routine Type 2 diabetes mellitus with stage 3a chronic kidney disease, without long-term current use of insulin (HCC) Expected: 03/13/2024, Expires: 06/12/2024 [facility] Work Phone: Comment on above: Expected: 03/13/2024 , Expires: 06/12/2024 Start: 03-13-2024 End: 06-12-2024 LIPID PANEL, NONFASTING LIPID PANEL, NONFASTING Lab Routine Type 2 diabetes mellitus with stage 3a chronic kidney disease, without long-term current use of insulin (HCC) Essential hypertension Mixed hyperlipidemia Bilateral carotid artery stenosis Expected: 03/13/2024, Expires: 06/12/2024 [facility] Work Phone: Comment on above: Expected: 03/13/2024 , Expires: 06/12/2024 Start: 03-13-2024 End: 06-12-2024 Magnesium [Mass/volume] in Serum or Plasma MAGNESIUM BLD Lab Routine Medication management Gastroesophageal reflux disease without esophagitis Expected: 03/13/2024, Expires: 06/12/2024 [facility] Work Phone: Comment on above: Expected: 03/13/2024 , Expires: 06/12/2024 Start: 03-13-2024 End: 06-12-2024 Thyrotropin [Units/volume] in Serum or Plasma TSH BLD Lab Routine Hypothyroidism (acquired) Expected: 03/13/2024, Expires: 06/12/2024 [facility] Work Phone: Comment on above: Expected: 03/13/2024 , Expires: 06/12/2024 Start: 03-13-2024 End: 06-12-2024 Urinalysis complete panel - Urine URINALYSIS, WITH MICROSCOPIC Lab Routine Type 2 diabetes mellitus with stage 3a chronic kidney disease, without long-term current use of insulin (HCC) Essential hypertension Mixed hyperlipidemia Expected: 03/13/2024, Expires: 06/12/2024 [facility] Work Phone: Comment on above: Expected: 03/13/2024 , Expires: 06/12/2024 Start: 03-10-2024 End: 03-10-2024 Patient encounter procedure 03/10/2024 1:45 PM EDT Office Visit [facility] [address] [facility] [id number] Saray Alexander PA-C [address] [place] [address] [phone] Dx Dementia Rx Aricept consult by PCP Neurology Comment on above: Dx Dementia Rx Arice pt consult by PCP Start: 03-08-2024 BP CONTROLLED (<130/80) BP CONTROLLE D (<130/80) [facility] Start: 03-07-2024 BP CONTROLLED (<130/80) BP CONTROLLE D (<130/80) [facility] Start: 03-06-2024 ANNUAL PCP TEAM DRILL FOREMAN CODY DISEASE VISIT ANNUAL PCP TEAM CHRONIC DISEASE VISIT [facility] Start: 03-06-2024 BP CONTROLLED (<130/80) BP CONTROLLE D (<130/80) [facility] Start: 03-03-2024 HEMOGLOBIN/HEMATOCRIT HEMOGLOBIN/HEM ATOCRIT [facility] Start: 03-03-2024 SERUM CREATININE SERUM CREATININE [facility] Start: 02-26-2024 End: 02-26-2024 Patient encounter procedure 02/26/2024 1:30 PM EDT Office Visit Neurology [address] [place] [place] [id number] Saray Alexander PA-C [address] [place], [place] [phone] Dx Dementia Rx Aricept consult by PCP Neurology Comment on above: Dx Dementia Rx Arice pt consult by PCP Start: 02-24-2024 End: 02-24-2024 Patient encounter procedure Neurology Comment on above: Dementia without beh avioral disturbance (HCC) [F03.90]; Primary insomnia [F51.01] Primary insomnia [F5 1.01] Start: 01-25-2024 ANNUAL PCP TEAM DRILL FOREMAN CODY DISEASE VISIT ANNUAL PCP TEAM CHRONIC DISEASE VISIT [facility] Start: 01-25-2024 BP CONTROLLED (<130/80) BP CONTROLLE D (<130/80) [facility] Start: 03-23-2024 ANNUAL PCP TEAM DRILL FOREMAN CODY DISEASE VISIT ANNUAL PCP TEAM CHRONIC DISEASE VISIT [facility] Start: 12-28-2023 BP CONTROLLED (<130/80) BP CONTROLLE D (<130/80) [facility] Start: 12-04-2023 ANNUAL PCP TEAM DRILL FOREMAN CODY DISEASE VISIT ANNUAL PCP TEAM CHRONIC DISEASE VISIT [facility] Start: 12-04-2023 BP CONTROLLED (<130/80) BP CONTROLLE D (<130/80) [facility] Start: 11-30-2023 SERUM CREATININE SERUM CREATININE [facility] Start: 11-21-2023 ANNUAL PCP TEAM DRILL FOREMAN CODY DISEASE VISIT ANNUAL PCP TEAM CHRONIC DISEASE VISIT [facility] Start: 11-21-2023 BP CONTROLLED (<130/80) BP CONTROLLE D (<130/80) [facility] Start: 11-15-2023 Covid-19 Vaccine (5 - Moderna series) Covid-19 Vaccine (5 - Moderna series) [facility] Start: 11-15-2023 Covid-19 Vaccine () Covid-19 Vaccine () [facility] Start: 11-13-2023 BP CONTROLLED (<130/80) BP CONTROLLE D (<130/80) [facility] Start: 10-07-2023 Advance Directive Discussion Advance Directive Discussion [facility] Start: 09-20-2023 3 comp foot exam completed DIABETIC FOOT EXAM [facility] Start: 09-20-2023 ANNUAL PCP TEAM DRILL FOREMAN CODY DISEASE VISIT ANNUAL PCP TEAM CHRONIC DISEASE VISIT [facility] Start: 09-20-2023 BP CONTROLLED (<130/80) BP CONTROLLE D (<130/80) [facility] Start: 09-20-2023 Diabetic foot examination Diabetic Foot Exam [facility] Start: 09-20-2023 Hemoglobin A1c/Hemoglobin.total in Blood HBA1C [facility] Start: 09-20-2023 SHINGRIX VACCINE (2 of 2) SHINGRIX VACCINE (2 of 2) [facility] Comment on above: Postponed from 08/07 (Currently Scheduled) Start: 09-13-2023 HEMOGLOBIN/HEMATOCRIT HEMOGLOBIN/HEM ATOCRIT [facility] Start: 09-13-2023 Hepatitis B screening URINE AL BUMIN:CREATININE RATIO [facility] Start: 09-13-2023 Hepatitis B surface antibody level LDL CHOLESTEROL [facility] Start: 09-13-2023 SERUM CREATININE SERUM CREATININE Cl [facility] Start: 08-08-2023 Glaucoma screening Dilated Retinal E xam [facility] Start: 08-08-2023 Hepatitis C antibody , confirmatory test DILATED RETINAL EXAM [facility] Start: 06-20-2023 ANNUAL PCP TEAM DRILL FOREMAN CODY DISEASE VISIT ANNUAL PCP TEAM CHRONIC DISEASE VISIT [facility] Start: 06-07-2023 Influenza vaccination INFLUENZA (#1) [facility] Start: 03-29-2023 End: 05-29-2023 Thyrotropin [Units/volume] in Serum or Plasma TSH BLD Lab Routine Hypothyroidism (acquired) Expected: 03/29/2023, Expires: 05/29/2023 [facility] Work Phone: Comment on above: Expected: 03/29/2023 , Expires: 05/29/2023 Start: 03-21-2023 ANNUAL PCP TEAM DRILL FOREMAN CODY DISEASE VISIT ANNUAL PCP TEAM CHRONIC DISEASE VISIT [facility] Start: 03-21-2023 BP CONTROLLED (<130/80) BP CONTROLLE D (<130/80) [facility] Start: 03-14-2023 Hemoglobin A1c/Hemoglobin.total in Blood HBA1C [facility] Start: 03-08-2023 End: 05-08-2023 Basic metabolic 2000 panel - Serum or Plasma BASIC METABOLIC PNL Lab Routine Type 2 diabetes mellitus with stage 3a chronic kidney disease, without long-term current use of insulin (HCC) Essential hypertension Mixed hyperlipidemia Stage 3a chronic kidney disease (HCC) Expected: 03/08/2023, Expires: 05/08/2023 [facility] Work Phone: Comment on above: Expected: 03/08/2023 , Expires: 05/08/2023 Start: 03-08-2023 End: 05-08-2023 Hemoglobin A1c in Blood HGB A1C Lab Routine Type 2 diabetes mellitus with stage 3a chronic kidney disease, without long-term current use of insulin (HCC) Expected: 03/08/2023, Expires: 05/08/2023 [facility] Work Phone: Comment on above: Expected: 03/08/2023 , Expires: 05/08/2023 Start: 03-08-2023 End: 05-08-2023 LIPID PANEL, NONFASTING LIPID PANEL, NONFASTING Lab Routine Type 2 diabetes mellitus with stage 3a chronic kidney disease, without long-term current use of insulin (HCC) Essential hypertension Mixed hyperlipidemia Bilateral carotid artery stenosis Expected: 03/08/2023, Expires: 05/08/2023 [facility] Work Phone: Comment on above: Expected: 03/08/2023 , Expires: 05/08/2023 Start: 03-08-2023 End: 05-08-2023 Thyrotropin [Units/volume] in Serum or Plasma TSH BLD Lab Routine Hypothyroidism (acquired) Expected: 03/08/2023, Expires: 05/08/2023 [facility] Work Phone: Comment on above: Expected: 03/08/2023 , Expires: 05/08/2023 Start: 03-01-2023 BP CONTROLLED (<130/80) BP CONTROLLE D (<130/80) [facility] Start: 02-01-2023 End: 04-03-2023 Thyrotropin [Units/volume] in Serum or Plasma TSH BLD Lab Routine Hypothyroidism (acquired) Expected: 02/01/2023, Expires: 04/03/2023 [facility] Work Phone: Comment on above: Expected: 02/01/2023 , Expires: 04/03/2023 Start: 01-24-2023 End: 03-26-2023 Lead [Mass/volume] in Blood [facility] Work Phone: Comment on above: Expected: 01/24/2023 , Expires: 03/26/2023 Start: 01-19-2023 COVID-19 VACCINE (5 - Moderna series) COVID-19 VACCINE (5 - Moderna series) [facility] Start: 12-05-2022 Hepatitis B screening URINE AL BUMIN:CREATININE RATIO [facility] Start: 12-05-2022 Hepatitis B surface antibody level LDL CHOLESTEROL [facility] Start: 12-04-2022 End: 02-03-2023 Magnesium [Mass/volume] in Serum or Plasma [facility] Work Phone: Comment on above: Expected: 12/04/2022 , Expires: 02/03/2023 Start: 12-04-2022 End: 02-03-2023 POTASSIUM BLD [facility] Work Phone: Comment on above: Expected: 12/04/2022 , Expires: 02/03/2023 Start: 12-04-2022 End: 02-03-2023 Thyrotropin [Units/volume] in Serum or Plasma [facility] Work Phone: Comment on above: Expected: 12/04/2022 , Expires: 02/03/2023 Start: 10-07-2022 ADVANCE DIRECTIVE DISCUSSION ADVANCE DIRECTIVE DISCUSSION [facility] Start: 09-18-2022 3 comp foot exam completed DIABETIC FOOT EXAM [facility] Start: 09-18-2022 ANNUAL PCP TEAM DRILL FOREMAN CODY DISEASE VISIT ANNUAL PCP TEAM CHRONIC DISEASE VISIT [facility] Start: 09-18-2022 BP CONTROLLED (<130/80) BP CONTROLLE D (<130/80) [facility] Start: 09-18-2022 SHINGRIX VACCINE (1 of 2) SHINGRIX VACCINE (1 of 2) [facility] Comment on above: Postponed from 08/19 (Insurance Coverage) Start: 09-07-2022 End: 11-07-2022 ALBUMIN/CREAT RATIO RND UR ALBUMIN/CREAT RATIO RND UR Lab Routine Type 2 diabetes mellitus without complication, without long-term current use of insulin (HCC) Expected: 09/07/2022, Expires: 11/07/2022 [facility] Work Phone: Comment on above: Expected: 09/07/2022 , Expires: 11/07/2022 Start: 09-07-2022 End: 11-07-2022 CBC W Auto Differential panel - Blood CBC + DIFF Lab Routine Type 2 diabetes mellitus without complication, without long-term current use of insulin (HCC) Renal insufficiency Expected: 09/07/2022, Expires: 11/07/2022 [facility] Work Phone: Comment on above: Expected: 09/07/2022 , Expires: 11/07/2022 Start: 09-07-2022 End: 11-07-2022 Comprehensive metabolic 2000 panel - Serum or Plasma COMP METABOLIC PANEL Lab Routine Type 2 diabetes mellitus without complication, without long-term current use of insulin (HCC) Essential hypertension Mixed hyperlipidemia Protein deficiency (HCC) Renal insufficiency Expected: 09/07/2022, Expires: 11/07/2022 [facility] Work Phone: Comment on above: Expected: 09/07/2022 , Expires: 11/07/2022 Start: 09-07-2022 End: 11-07-2022 Hemoglobin A1c in Blood HGB A1C Lab Routine Type 2 diabetes mellitus without complication, without long-term current use of insulin (HCC) Expected: 09/07/2022, Expires: 11/07/2022 [facility] Work Phone: Comment on above: Expected: 09/07/2022 , Expires: 11/07/2022 Start: 09-07-2022 End: 11-07-2022 LIPID PANEL, NONFASTING LIPID PANEL, NONFASTING Lab Routine Type 2 diabetes mellitus without complication, without long-term current use of insulin ([facility]) Essential hypertension Mixed hyperlipidemia Bilateral carotid artery stenosis Expected: 09/07/2022, Expires: 11/07/2022 [facility] Work Phone: Comment on above: Expected: 09/07/2022 , Expires: 11/07/2022 Start: 09-07-2022 End: 11-07-2022 Thyrotropin [Units/volume] in Serum or Plasma TSH BLD Lab Routine Hypothyroidism (acquired) Expected: 09/07/2022, Expires: 11/07/2022 [facility] Work Phone: Comment on above: Expected: 09/07/2022 , Expires: 11/07/2022 Start: 09-07-2022 End: 11-07-2022 Urinalysis complete panel - Urine URINALYSIS, WITH MICROSCOPIC Lab Routine Type 2 diabetes mellitus without complication, without long-term current use of insulin ([facility]) Essential hypertension Mixed hyperlipidemia Expected: 09/07/2022, Expires: 11/07/2022 [facility] Work Phone: Comment on above: Expected: 09/07/2022 , Expires: 11/07/2022 Start: 08-07-2022 SHINGRIX VACCINE (2 of 2) SHINGRIX VACCINE (2 of 2) [facility] Start: 07-22-2022 End: 09-21-2022 HEP ACUTE PANEL/RNA HEP ACUTE PANEL/RNA Lab Routine Elevated LFTs Expected: 07/22/2022, Expires: 09/21/2022 [facility] Work Phone: Comment on above: Expected: 07/22/2022 , Expires: 09/21/2022 Start: 07-22-2022 End: 09-21-2022 Hepatic function 2000 panel - Serum or Plasma HEPATIC FUNCTION PNL Lab Routine Elevated LFTs Expected: 07/22/2022, Expires: 09/21/2022 [facility] Work Phone: Comment on above: Expected: 07/22/2022 , Expires: 09/21/2022 Start: 06-07-2022 Hemoglobin A1c/Hemoglobin.total in Blood HBA1C [facility] Start: 06-07-2022 Influenza vaccination INFLUENZA (#1) [facility] Start: 04-25-2022 BP CONTROLLED (<130/80) BP CONTROLLE D (<130/80) [facility] Start: 02-07-2022 COVID-19 VACCINE (4 - Booster for Moderna series) COVID-19 VACCINE (4 - Booster for Moderna series) [facility] Start: 12-05-2021 COVID-19 VACCINE (4 - Booster for Moderna series) COVID-19 VACCINE (4 - Booster for Moderna series) [facility] Start: 10-07-2021 ADVANCE DIRECTIVE DISCUSSION ADVANCE DIRECTIVE DISCUSSION [facility] Start: 06-07-2020 Influenza vaccination Flu vaccine (# 1) [place], [place] Start: 02-28-2018 Screening for osteoporosis Bone Density Screening [facility] Start: 11-16-2016 Creatinine measurement Creatinine mo nitoring [place], [place] Start: 2004 Hepatitis B Vaccine (1 of 3 - Risk 3-dose series) Hepatitis B Vaccine (1 of 3 - Risk 3-dose series) [facility] Start: 2004 RSV Vaccine (1 - 1-d ose 60+ series) RSV Vaccine (1 - 1-dose 60+ series) [facility] Start: 1999 Screening for osteoporosis DEXA (modify frequency per FRAX score) [place], [place] Start: 1994 Screening for malign ant neoplasm of colon Colon cancer screen colonoscopy [place], [place] Start: 1994 Shingles Vaccine (1 of 2) Shingles Vaccine (1 of 2) [place] Start: 1984 Lipid panel Lipid screen [place], [place] Start: 1954 Hepatitis C antibody , confirmatory test DILATED RETINAL EXAM [facility] Start: 1944 Potassium monitoring Potassium monit oring [place], [place] Start: 1945 TSH Qn TSH testing [place], [place] End: 01-03-2024 CTA HEAD W IVCON CTA HEAD W IVCON Radiology Routine Dizziness 1 Occurrences starting 12/04/2022 until 01/03/2024 [facility] Work Phone: Comment on above: 1 Occurrences starti ng 12/04/2022 until 01/03/2024 End: 01-03-2024 CTA NECK W IVCON CTA NECK W IVCON Radiology Routine Dizziness 1 Occurrences starting 12/04/2022 until 01/03/2024 [facility] Work Phone: Comment on above: 1 Occurrences starti ng 12/04/2022 until 01/03/2024 End: 12-07-2023 EGD DIAGNOSTIC EGD DIAGNOSTIC Endoscopy Routine Weight loss Decreased appetite Nausea 1 Occurrences starting 12/06/2022 until 12/07/2023 [facility] Work Phone: Comment on above: 1 Occurrences starti ng 12/06/2022 until 12/07/2023 POST VOID RESIDUAL POST VOID RES IDUAL Procedures Routine Overactive bladder Ordered: 11/13/2022 [facility] Work Phone: Comment on above: Ordered: 11/13/2022 End: 10-10-2023 Radiologic exam esophagus single contrast study XR ESOPHAGRAM Radiology Routine Dysphagia, unspecified type 1 Occurrences starting 09/10/2022 until 10/10/2023 [facility] Work Phone: Comment on above: 1 Occurrences starti ng 09/10/2022 until 10/10/2023 End: 04-20-2023 Screening mammography bi 2-view breast inc cad BIANKA SCREENING Radiology Routine Encounter for screening mammogram for breast cancer 1 Occurrences starting 03/22/2022 until 04/20/2023 [facility] Work Phone: Comment on above: 1 Occurrences starti ng 03/22/2022 until 04/20/2023 UA DIP, URINE (POC) UA DIP, URIN E (POC) Lab Routine Overactive bladder Ordered: 11/26/2023 [facility] Work Phone: Comment on above: Ordered: 11/26/2023 End: 09-20-2023 US [facility] US [facility]ID [facility] Vascular Lab Routine Bilateral carotid artery stenosis 1 Occurrences starting 09/20/2022 until 09/20/2023 [facility] Work Phone: Comment on above: 1 Occurrences starti ng 09/20/2022 until 09/20/2023 End: 09-25-2024 US CAROTID [facility]IES [facility] US CAROTID [facility] Vascular Lab Routine Bilateral carotid artery stenosis 1 Occurrences starting 09/25/2023 until 09/25/2024 [facility] Work Phone: Comment on above: 1 Occurrences starti ng 09/25/2023 until 09/25/2024 End: 08-21-2025 XR Lumbar spine AP and Lateral and oblique XR LUMBAR PARS DEFECT 4V AP/LAT/BOTH OBL Radiology Routine Acute bilateral low back pain without sciatica 1 Occurrences starting 07/22/2024 until 08/21/2025 [facility] Work Phone: Comment on above: 1 Occurrences starti ng 07/22/2024 until 08/21/2025 XR Lumbar spine AP a nd Lateral and oblique XR LUMBAR PARS DEFECT 4V AP/LAT/BOTH OBL Radiology Routine Acute bilateral low back pain without sciatica 07/22/2024 2:24 PM EDT [facility] End: 08-21-2025 XR Pelvis and Hip - left AP and Lateral frog XR HIP GENERAL 3V PELV/AP/LAT LEFT Radiology Routine Left hip pain 1 Occurrences starting 07/22/2024 until 08/21/2025 [facility] Comment on above: 1 Occurrences starti ng 07/22/2024 until 08/21/2025 XR Pelvis and Hip - left AP and Lateral frog XR HIP GENERAL 3V PELV/AP/LAT LEFT Radiology Routine Left hip pain 07/22/2024 2:24 PM EDT [facility] End: 04-09-2025 XR Ribs - left Views and Chest PA XR RIBS/CHEST 3V AP RIB/OBLS/CXR LEFT Radiology Routine Left-sided chest wall pain 1 Occurrences starting 03/10/2024 until 04/09/2025 [facility] Work Phone: Comment on above: 1 Occurrences starti ng 03/10/2024 until 04/09/2025 [facility] Immunizations Immunization Date Immunization Notes Care Provider Fa cili 07-22-2024 COVID-19 vaccine, ag e 12+ yr (Capital Float-MonstrousNTPixable COMIRNATY) Kurt Saravia MD Work Phone: [facility] 07-22-2024 influenza, high dose seasonal, preservative-free Kurt Saravia MD Work Phone: [facility] 04-08-2024 COVID-19 vaccine, ag e 12+ yr, 2022- season (HeiaHeia.comNTPixable) Kurt Saravia MD Work Phone: [facility] 07-15-2023 COVID-19 vaccine, ag e 12+ yr, season (PFIZER-BIONTECH) Mally Calzada PA-C Work Phone: [facility] 07-15-2023 influenza (HD-IIV4) vaccine, age 65+ yr, high dose, quadrivalent, PF (FLUZONE HIGH-DOSE) Mally Calzada PA-C Work Phone: [facility] 07-15-2023 influenza virus vaccine, unspecified formulation Kurt Saravia MD Work Phone: [facility] 09-20-2022 COVID-19 booster vaccine, age 12+ yr, bivalent (Capital Float-BIONTPixable) Kurt Saravia MD Work Phone: [facility] 06-12-2022 influenza, high dose seasonal, preservative-free Kurt Saravia MD Work Phone: [facility] 06-12-2022 zoster vaccine recombinant Kurt Saravia MD Work Phone: [facility] 07-19-2021 influenza, high-dose , quadrivalent vaccine (FLUZONE HIGH DOSE QUADRIVALENT) Kurt Saravia MD Work Phone: [facility] Work Phone: 07-07-2020 influenza, high-dose , quadrivalent vaccine (FLUZONE HIGH DOSE QUADRIVALENT) Kurt Saravia MD Work Phone: [facility] 07-03-2019 influenza, high dose seasonal, preservative-free Kurt Saravia MD Work Phone: [facility] 08-04-2018 influenza, high dose seasonal, preservative-free Kurt Saravia MD Work Phone: [facility] 05-29-2018 tetanus toxoid, redu ernestine diphtheria toxoid, and acellular pertussis vaccine, adsorbed Kurt Saravia MD Work Phone: [facility] Work Phone: 11-03-2017 influenza, high dose seasonal, preservative-free Kurt Saravia MD Work Phone: [facility] 12-26-2016 pneumococcal polysaccharide vaccine, 23 valent Kurt Kimberly MD Work Phone: [facility] 05-21-2016 influenza, high dose seasonal, preservative-free Kurt Saravia MD Work Phone: [facility] Work Phone: 08-17-2015 influenza, high dose seasonal, preservative-free Kurt Saravia MD Work Phone: [facility] 08-17-2015 pneumococcal conjuga te vaccine, 13 valjosiane Saravia MD Work Phone: [facility] 07-22-2014 influenza virus vaccine, unspecified formulation [place], [place] 09-14-2013 influenza virus vaccine, unspecified formulation [place] 09-14-2013 tetanus toxoid, redu ernestine diphtheria toxoid, and acellular pertussis vaccine, adsorbed [facility] 06-21-2011 influenza virus vaccine, unspecified formulation [place] Payers Date Payer Category Payer [facility] [id number] 2024-Present [phone] [address] [place] [address] Medicaid [id number] 2024 Medicare [id number] 2022 Medicare [id number] 2022 Private Health Insurance [id number] 2022 Unknown ANTHEM BLUE CROS S AND BLUE SHIELD ANTHEM MEDIBLUE O [id number] 2022-Present [phone] [address] [id number] O [id number] 2022 Unknown [id number] 2021 Medicare [id number] 2014 Medicare MEDICARE MEDICAR E PART A AND B [id number] 2014-Present [phone] [place] [address] [id number] Social History Date Type Detail Facility Start: 05-11-2020 End: 06-20-2022 Tobacco smoking status NHIS Former smoker [facility] Work Phone: Start: 05-11-2020 End: 03-02-2023 Cigarettes smoked current (pack per day) - Reported [facility] Work Phone: Start: 05-11-2020 End: 07-22-2024 Tobacco use and exposure [facility] Start: 05-11-2020 End: 09-20-2022 Alcohol intake Current non-drinker of alcohol (finding) [facility] Start: 1945 Sex Assigned At [facility] Start: 03-11-2022 End: 09-10-2022 Exposure to SARS-CoV-2 (event) Not sure [facility] End: 06-13-2016 History of tobacco use Current smoker [facility] Work Phone: End: 06-13-2016 History of tobacco use Cigarette Smoker [facility] Work Phone: Start: 07-06-2015 End: 06-20-2022 Tobacco Comment 4 cigarettes per daily [facility] Start: 11-13-2022 End: 07-22-2024 Tobacco smoking status NHIS Occasional tobacco smoker [facility] Start: 11-13-2022 End: 07-22-2024 Alcohol intake Ex-drinker (finding) [facility] Start: 11-13-2022 Tobacco Comment Roughly one pa ck per week [facility] Start: 03-02-2023 End: 04-12-2023 Tobacco use panel [facility] Work Phone: Adult Depression Screening Assessment 1 [facility] Work Phone: How often to you hav e a drink containing alcohol? Never [facility] Goals Date Patient Goal Desired Activity /State Personal health goal Comment on above: Formatting of this n ote might be different from the original. Patient has the following Chronic Kidney Disease goals: Two PCP visits annually, Nephrology visit annually, and Renal panel twice annually Patient will meet these goals by: 10-06-24 (describe interventions done by PCC) Clinical Notes 12-26-2017 to 07-22-2024 Telephone Encounter - Brenda Sanabria MA - 07/22/2024 2:41 PM EDTTelephone Encounter - Brenda Sanabria MA - 07/22/2024 2:41 PM Jorge Bro RT(Ramona) - 07/22/2024 2:00 PM EDTPatient Instructions Note Date & Type Note Facility 07-22-2024 Telephone encounter Note Faxed order/demo to [facility]. Referral sent to teri/jillian Sanabria MA [facility] 07-22-2024 Miscellaneous Notes Faxed order/demo to [facility]. Referral sent to teri/jillian Sanabria MA documented in this encounter [facility] 07-22-2024 History of Present illness Narrative Radiology Service Progress Note PATIENT NAME: Edison Albarran DATE OF SERVICE: July 22, 2024 TIME: 1:58 PM PATIENT IDENTITY VERIFICATION COMPLETED USING TWO (2) IDENTIFIERS: Name and Date of confirmed by patient verbally. FALL SCREENING: Has the patient had 2 falls in the last year or 1 fall with injury or currently using an Ambulatory Assistive Device (Walker, Cane, Wheelchair, Crutches, etc.)? Yes, Patient High Risk for Falls What interventions were put in place to prevent falls during this visit? Offered Assistance with Transfers/Clothing, Instructed Patient to Remain Seated (Not on Exam Table) Until Exam, and Increased Observations by Caregivers PATIENT GENDER DATA: Female. status: : No status: NO. PATIENT RELEVANT IMPLANT DATA REVIEWED: Yes PATIENT PRESENTS WITH AN IMPLANTABLE OR ATTACHED PROGRAM ATTENDANT: No RADIOLOGY DEPARTMENT: General X-ray: Exam(s) Completed: Spine X-Ray(s): Lumbar AP / LAT / L5-S1 / OBL Pelvis X-Ray: Pelvis with Hip Left No L5-S1 ordered PERIPHERAL IV DATA: Not applicable SIGNED BY: RT Dorian(R) July 22, 2024 1:58 PM documented in this encounter [facility] 07-22-2024 Note HNO ID: [id number] Author: JORGE ALVES RT(R) Service: ? Author Type: Senior Controls Technician Type: Progress Notes Filed: 07/22/2024 14:22 Note Text: Radiology Service Progress Note PATIENT NAME: Edison Albarran DATE OF SERVICE: July 22, 2024 TIME: 1:58 PM PATIENT IDENTITY VERIFICATION COMPLETED USING TWO (2) IDENTIFIERS: Name and Date of confirmed by patient verbally. FALL SCREENING: Has the patient had 2 falls in the last year or 1 fall with injury or currently using an Ambulatory Assistive Device (Walker, Cane, Wheelchair, Crutches, etc.)? Yes, Patient High Risk for Falls What interventions were put in place to prevent falls during this visit? Offered Assistance with Transfers/Clothing, Instructed Patient to Remain Seated (Not on Exam Table) Until Exam, and Increased Observations by Caregivers PATIENT GENDER DATA: Female. status: : No status: NO. PATIENT RELEVANT IMPLANT DATA REVIEWED: Yes PATIENT PRESENTS WITH AN IMPLANTABLE OR ATTACHED PROGRAM ATTENDANT: No RADIOLOGY DEPARTMENT: General X-ray: Exam(s) Completed: Spine X-Ray(s): Lumbar AP / LAT / L5-S1 / OBL Pelvis X-Ray: Pelvis with Hip Left No L5-S1 ordered PERIPHERAL IV DATA: Not applicable SIGNED BY: RT Dorian(R) July 22, 2024 1:58 PM [facility] 07-22-2024 History of Present illness Narrative Chief Complaint Patient presents with: Pain, Back HPI Edison Albarran is a 78 year old female who presents here today for hip pain. Dizziness has been ongoing for a while; feels like she is spinning; has never had an PHYSICAL THERAPY for this. Left hip pain; lower back pain. Has been going on for a few weeks. Started after lifting a bag of dog food. On occasion has radiation into her butt on the left. At times she has had some tingling in her left leg. Leg will give out a times. Denies and saddle anesthesia. No difficulty starting urination and no fecal incontinence. Patient was to have a medicare wellness in May; but no showed for her appointment. Needs rescheduled. Patient sees Neurology for Dementia last visit 03/2024 Patient does have [facility] assisting patient at home. Past medical history, appointments, medications, allergies reviewed. Previous Medical History PAST MEDICAL HISTORY Diagnosis Date Advance directive discussed with patient 03/21/202203/2022 Agitation 02/02/2020 Aneurysm of right subclavian artery (HCC) At risk for falling 04/12/2023 Bilateral carotid artery disease (HCC) 12/20/2015 US 12/2015: 20-40% on Rt and 40-60% on left. US 01/2017 unchanged. Chronic bilateral low back pain with sciatica 12/26/2016 Constipation 07/09/2018 after starting lipitor Decreased sensation of lower extremity 01/04/2016 Dementia without behavioral disturbance (HCC) 12/20/2022 Diabetic eye exam (HCC) 09/24/2022 Last done 08/08/22 Essential hypertension 2015 Essential tremor 09/18/2021 Ex-smoker 2015 1/2-1 PPD since early 50's, quit January 2018 Failure to thrive in adult 03/02/2023 Gastroesophageal reflux disease without esophagitis 09/25/2023 Hematuria 12/14/2015 Urology w/u neg. Hypothyroidism (acquired) 2015 Living will on file 03/21/2022 DPA; Casey (son) Lymphocytic colitis 05/16/2020 Possibly Zoloft related. Mediastinal lymphadenopathy 08/04/2018 Prominent Mediastinal lymphadenopathy noted on CT 08/01/18. CT 01/05/2019 no mediastinal lymphadenopathy Mixed hyperlipidemia 2015 Moderate aortic insufficiency 01/19/[address] Cordoba Osteoporosis 05/26/2015 Overactive bladder Pain in both hands 12/26/2016 Pain in joint, multiple sites 12/07/2015 On neurontin Primary insomnia 09/25/2023 Seeing Neuro Recurrent major depressive disorder, in remission ([facility]) 07/01/2018 Spinal stenosis, lumbar region, with neurogenic claudication 01/23/2016 Stage 3a chronic kidney disease ([facility]) 09/20/2022 Type 2 diabetes mellitus with stage 3a chronic kidney disease ([facility]) 09/20/2022 Type 2 diabetes mellitus without complication, without long-term current use of insulin ([facility]) 12/07/2015 Unsteady gait 03/06/2023 Urgency of urination 06/13/2016 Previous Surgical History PAST SURGICAL HISTORY Procedure Laterality Date 2D ECHO (EXEP) 09/2020 EF=64%, Mild Noe dysf and La enlargment, 2+ AR CARPAL TUNNEL RIGHT WRIST COLONOSCOPY 2010 repeat 10 yrs COLONOSCOPY FLX DX W/COLLJ SPEC WHEN PFRMD 04/21/2020 Colonoscopy CORRECTION OF BUNION Left ESOPHAGOGASTRODUODENOSCOPY TRANSORAL DIAGNOSTIC 04/21/2020 EGD FECAL OCCULT BLOOD TEST 01/01/2018 negative HYSTERECTOMY HX 1970 one ovary removed LEXISCAN STRESS TEST 11/21/2020 negative PAST SURGICAL HISTORY OF 1971 appendectomy PAST SURGICAL HISTORY OF 1987 breast lump, benign STRESS TEST 07/09/2016 WNL TUMOR REMOVAL (SPECIFY LOCATION) HX 2002 stomach Family History FAMILY HISTORY Problem Relation Age of Onset Breast Cancer Mother over 50 Hypertension Mother Lipids Mother Osteoporosis Mother Thyroid Mother Cancer Father stomach Cancer Brother lung Alzheimer's Disease Brother dementia Diabetes Brother Patient Allergies ALLERGIES Allergen Reactions Bactrim [Sulfametho* Other: See Comments Unknown. Cephalexin Other: See Comments Unknown. Citalopram Swelling Throat swelled Cymbalta [Duloxetin* Other: See Comments Made her feel groggy. Current Medications Current Outpatient Medications on File Prior to Visit Medication Sig levothyroxine (SYNTHROID) 50 mcg tablet Take 1 tablet by mouth daily before breakfast. Mon-Fri and none on Saturday, Saturday atorvastatin (LIPITOR) 40 mg tablet Take 1 tablet by mouth daily at bedtime. For cholesterol. FLUoxetine (PROZAC) 40 mg capsule Take 1 capsule by mouth once daily. potassium chloride SR (MICRO-K) 10 mEq CR capsule Take 2 capsules by mouth once daily. QUEtiapine (SEROQUEL) 25 mg tablet take 1/2 tablet by mouth at bedtime donepezil (ARICEPT) 5 mg tablet Take 1 tablet by mouth daily with breakfast. gabapentin (NEURONTIN) 300 mg capsule Take 1 capsule by mouth daily at bedtime for 180 days. mirabegron (MYRBETRIQ) 50 mg Tb24 Take 1 tablet by mouth once daily. cyanocobalamin (VITAMIN B-12) 500 mcg tablet Take 1 tablet by mouth once daily. omeprazole (PRILOSEC) 40 mg capsule Take 1 capsule by mouth two times a day. Take 30-60 minutes before breakfast and dinner on an empty stomach. WALKER ROLLATOR SEAT WITH 6 WHEELS - RED Any color is fine and with a basket if available. Dx: Z91.81, M54.40, R20.8, M46.062 and R26.81 No current facility-administered medications on file prior to visit. Social History Social History Tobacco Use Smoking status: Some Days Current packs/day: 0.50 Types: Cigarettes Smokeless tobacco: Never Tobacco comments: Roughly one pack per week Vaping Use Vaping status: Never Used Substance Use Topics Alcohol use: Not Currently Drug use: Never Review of Symptoms REVIEW OF SYSTEMS See HPI EXAM: BP 124/84 (BP Site: Left Arm, BP Position: Sitting, BP Cuff Size: Regular Adult) Pulse 72 Resp 16 Wt 49 kg (108 lb) BMI 21.81 kg/m General Appearance: Well appearing, alert, in no acute distress, well-hydrated, well nourished. Appears uncomfortable with rotating in the chair. Back: has pain to palpation of the lumbar vertebrae, she has decreased range of motion due to pain. Paraspinal muscles on the left are tender. reflexes are 2+ and symmetric at the knees. Not able to produce in the achillis bilaterally. Muscle strength on the right was normal. On the left she has reduced hip flexor at 4/5, reduced knee extension at 3-4/5. negative SLR test, Extremities: No deformities, edema, Peripheral Pulses: Normal. Neurologic: Gait normal. Reflexes normal and symmetric at the knees. . Light touch sensation lower extremities. Patient feels weaker sensation in the lateral left thigh compared to the right and decreased sensation in the medial right calf compared to the left. All other areas felt equal to her. Health Maintenance List Bone Density Screening due on 02/28/2018 Dilated Retinal Exam due on 08/08/2023 Diabetic Foot Exam due on 09/20/2023 Influenza Vaccine(1) due on 06/07/2024 Covid-19 Vaccine( season) due on 06/07/2024 RSV Vaccine(1 - 1-dose 75+ series) due on 09/25/2024 Shingrix Vaccine(2 of 2) due on 09/25/2024 HbA1C due on 10/09/2024 Urine Albumin:Creatinine Ratio due on 04/08/2025 LDL Cholesterol due on 04/08/2025 Annual PCP Team Chronic Disease Visit due on 04/08/2025 Serum Creatinine due on 04/08/2025 BP Controlled (<130/80) due on 04/08/2025 DTaP,Tdap,Td Vaccine(3 - Td or Tdap) due on 05/29/2028 Advance Directive Discussion Completed Pneumococcal Vaccine: 65+ Completed Colorectal Cancer Screening Discontinued Data reviewed A/P ASSESSMENT/PLAN: 1. Acute bilateral low back pain without sciatica - ICD9: 724.2, 338.19, ICD10: M54.50 (primary diagnosis) - XR LUMBAR PARS DEFECT 4V AP/LAT/BOTH OBL - CONSULT TO PHYSICAL THERAPY - script for lidocaine patches provided. 2. Left hip pain - ICD9: 719.45, ICD10: M25.552 - XR HIP GENERAL 3V PELV/AP/LAT LEFT - CONSULT TO PHYSICAL THERAPY 3. Spinal stenosis, lumbar region, with neurogenic claudication - ICD9: 724.03, ICD10: M48.062 - script for lidocaine patches. 4. Decreased sensation of lower extremity - ICD9: 782.0, ICD10: R20.8 - will get NCS at [facility] 5. Vertigo - ICD9: 780.4, ICD10: R42 - CONSULT TO PHYSICAL THERAPY - can not prescribe meclizine due to increased risk of stomach ulcers with her potassium pill. 6. Encounter for immunization - ICD9: V03.89, ICD10: Z23 - INFLUENZA VACCINE, PRSV FREE, AGE 65+ YR, HIGH DOSE, TRIVALENT (FLUZONE HIGH-DOSE): given - [employer] COVID-19 VACCINE AGE 12+ YR (COMIRNATY): given Requested Prescriptions Signed Prescriptions Disp Refills atorvastatin (LIPITOR) 40 mg tablet 90 tablet 1 Sig: Take 1 tablet by mouth daily at bedtime. For cholesterol. cyanocobalamin (VITAMIN B-12) 500 mcg tablet 90 tablet 1 Sig: Take 1 tablet by mouth once daily. donepezil (ARICEPT) 5 mg tablet 90 tablet 0 Sig: Take 1 tablet by mouth daily with breakfast. FLUoxetine (PROZAC) 40 mg capsule 30 capsule 5 Sig: Take 1 capsule by mouth once daily. gabapentin (NEURONTIN) 300 mg capsule 90 capsule 1 Sig: Take 1 capsule by mouth daily at bedtime for 180 days. levothyroxine (SYNTHROID) 50 mcg tablet 90 tablet 1 Sig: Take 1 tablet by mouth daily before breakfast. Mon-Sat and none on Saturday, Saturday potassium chloride SR (MICRO-K) 10 mEq CR capsule 60 capsule 5 Sig: Take 2 capsules by mouth once daily. lidocaine (LIDODERM) 5 % 30 Patch 5 Sig: Apply 1 Patch as directed every 24 hours. prn F/u extensive in the near future. I spent a total of 30 minutes on the date of the service which included preparing to see the patient, [id number] patient care, completing clinical documentation, performing a medically appropriate examination, counseling and educating the patient/family/caregiver and ordering medications, tests, or procedures. Kurt Saravia MD documented in this encounter [facility] 07-22-2024 Note HNO ID: [id number] Author: KURT SARAVIA MD Service: ? Author Type: Physician Type: Progress Notes Filed: 07/22/2024 14:30 Note Text: Chief Complaint Patient presents with: Pain, Back HPI Edison Albarran is a 78 year old female who presents here today for hip pain. Dizziness has been ongoing for a while; feels like she is spinning; has never had an PHYSICAL THERAPY for this. Left hip pain; lower back pain. Has been going on for a few weeks. Started after lifting a bag of dog food. On occasion has radiation into her butt on the left. At times she has had some tingling in her left leg. Leg will give out a times. Denies and saddle anesthesia. No difficulty starting urination and no fecal incontinence. Patient was to have a medicare wellness in May; but no showed for her appointment. Needs rescheduled. Patient sees Neurology for Dementia last visit 03/2024 Patient does have [facility] assisting patient at home. Past medical history, appointments, medications, allergies reviewed. Previous Medical History PAST MEDICAL HISTORY Diagnosis Date Advance directive discussed with patient 03/21/202203/2022 Agitation 02/02/2020 Aneurysm of right subclavian artery (HCC) At risk for falling 04/12/2023 Bilateral carotid artery disease (HCC) 12/20/2015 US 12/2015: 20-40% on Rt and 40-60% on left. US 01/2017 unchanged. Chronic bilateral low back pain with sciatica 12/26/2016 Constipation 07/09/2018 after starting lipitor Decreased sensation of lower extremity 01/04/2016 Dementia without behavioral disturbance (HCC) 12/20/2022 Diabetic eye exam ([facility]) 09/24/2022 Last done 08/08/22 Essential hypertension 2015 Essential tremor 09/18/2021 Ex-smoker 2015 1/2-1 PPD since early 50s, quit January 2018 Failure to thrive in adult 03/02/2023 Gastroesophageal reflux disease without esophagitis 09/25/2023 Hematuria 12/14/2015 Urology w/u neg. Hypothyroidism (acquired) 2015 Living will on file 03/21/2022 DPA; Casey (son) Lymphocytic colitis 05/16/2020 Possibly Zoloft related. Mediastinal lymphadenopathy 08/04/2018 Prominent Mediastinal lymphadenopathy noted on CT 08/01/18. CT 01/05/2019 no mediastinal lymphadenopathy Mixed hyperlipidemia 2015 Moderate aortic insufficiency 01/19/[address] Cordoba Osteoporosis 05/26/2015 Overactive bladder Pain in both hands 12/26/2016 Pain in joint, multiple sites 12/07/2015 On neurontin Primary insomnia 09/25/2023 Seeing Neuro Recurrent major depressive disorder, in remission ([facility]) 07/01/2018 Spinal stenosis, lumbar region, with neurogenic claudication 01/23/2016 Stage 3a chronic kidney disease ([facility]) 09/20/2022 Type 2 diabetes mellitus with stage 3a chronic kidney disease ([facility]) 09/20/2022 Type 2 diabetes mellitus without complication, without long-term current use of insulin (HCC) 12/07/2015 Unsteady gait 03/06/2023 Urgency of urination 06/13/2016 Previous Surgical History PAST SURGICAL HISTORY Procedure Laterality Date 2D ECHO (EXEP) 09/2020 EF=64%, Mild Noe dysf and La enlargment, 2+ AR CARPAL TUNNEL RIGHT WRIST COLONOSCOPY 2010 repeat 10 yrs COLONOSCOPY FLX DX W/COLLJ SPEC WHEN PFRMD 04/21/2020 Colonoscopy CORRECTION OF BUNION Left ESOPHAGOGASTRODUODENOSCOPY TRANSORAL DIAGNOSTIC 04/21/2020 EGD FECAL OCCULT BLOOD TEST 01/01/2018 negative HYSTERECTOMY HX 1970 one ovary removed LEXISCAN STRESS TEST 11/21/2020 negative PAST SURGICAL HISTORY OF 1971 appendectomy PAST SURGICAL HISTORY OF 1987 breast lump, benign STRESS TEST 07/09/2016 WNL TUMOR REMOVAL (SPECIFY LOCATION) HX 2001 stomach Family History FAMILY HISTORY Problem Relation Age of Onset Breast Cancer Mother over 50 Hypertension Mother Lipids Mother Osteoporosis Mother Thyroid Mother Cancer Father stomach Cancer Brother lung Alzheimer's Disease Brother dementia Diabetes Brother Patient Allergies ALLERGIES Allergen Reactions Bactrim [Sulfametho* Other: See Comments Unknown. Cephalexin Other: See Comments Unknown. Citalopram Swelling Throat swelled Cymbalta [Duloxetin* Other: See Comments Made her feel groggy. Current Medications Current Outpatient Medications on File Prior to Visit Medication Sig levothyroxine (SYNTHROID) 50 mcg tablet Take 1 tablet by mouth daily before breakfast. Mon-Sat and none on Saturday, Saturday atorvastatin (LIPITOR) 40 mg tablet Take 1 tablet by mouth daily at bedtime. For cholesterol. FLUoxetine (PROZAC) 40 mg capsule Take 1 capsule by mouth once daily. potassium chloride SR (MICRO-K) 10 mEq CR capsule Take 2 capsules by mouth once daily. QUEtiapine (SEROQUEL) 25 mg tablet take 1/2 tablet by mouth at bedtime donepezil (ARICEPT) 5 mg tablet Take 1 tablet by mouth daily with breakfast. gabapentin (NEURONTIN) 300 mg capsule Take 1 capsule by mouth daily at bedtime for 180 days. mirabegron (MYRBETRIQ) 50 mg Tb2 (more content not included)... [facility] 07-21-2024 Note HNO ID: [id number] Author: YELENA RICO MA Service: ? Author Type: Coin Machine Operator Type: Progress Notes Filed: 07/21/2024 10:35 Note Text: POPULATION HEALTH NAVIGATION OUTREACH Action/FYI Community Monitoring Navigation Pool/CDM Discuss/Due for: Follow Up/Acute Problem Visit Left Hip Pain/ Intermittent Dizziness Navigation Team: Please contact patient to schedule appointment with Kurt Saravia MD or associate for left hip pain radiating to low back and left leg also intermittent dizziness. Outcome: 1st attempt - Spoke to patient Scheduled with Kurt Saravia MD Reason for Outreach Community Monitoring/Network Navigator Pools AND Phone Line: CDM Patient Contacted: Spoke to patient/parent/or legal guardian Patient identified by name and : Yes Community Monitoring/Network Navigator Pools AND Phone Line actions taken: Patient scheduled: Follow-Up Appointment 07/22/2024 in [facility] with KURT SARAVIA - Follow Up/Acute Problem Visit - PER RN, Left Hip Pain/ Intermittent Dizziness 12/01/2024 in [facility] with COLTEN ORO - One year exam Navigation Signature: Yelena Rico MA July 21, 2024 10:28 AM [facility] 07-21-2024 History of Present illness Narrative POPULATION HEALTH NAVIGATION OUTREACH Action/FYI Community Monitoring Navigation Pool/CDM Discuss/Due for: Follow Up/Acute Problem Visit Left Hip Pain/ Intermittent Dizziness Navigation Team: Please contact patient to schedule appointment with Kurt Saravia MD or associate for left hip pain radiating to low back and left leg also intermittent dizziness. Outcome: 1st attempt - Spoke to patient Scheduled with Kurt Saravia MD Reason for Outreach Community Monitoring/Network Navigator Pools & Phone Line: CDM Patient Contacted: Spoke to patient/parent/or legal guardian Patient identified by name and : Yes Community Monitoring/Network Navigator Pools & Phone Line actions taken: Patient scheduled: Follow-Up Appointment 07/22/2024 in [facility] with KURT SARAVIA - Follow Up/Acute Problem Visit - PER RN, Left Hip Pain/ Intermittent Dizziness 12/01/2024 in [facility] with COLTEN ORO - One year exam Navigation Signature: Yelena Rico MA July 21, 2024 10:28 AM [facility] Telephonic Outreach Provider Action/FYI Navigation Team: Please contact patient to schedule appointment with Kurt Saravia MD or associate for left hip pain radiating to low back and left leg also intermittent dizziness. Contacted for: Routine Telephonic Outreach Contact made with patient: Yes Patient identified by name and date of . Discussed care with patient. Patient reports one to two weeks of left hip pain radiating to lower back and leg. Patient denies fall. She feels pain may be related to her cleaning out her garage recently. Patient states pain is intermittent. She also has been experiencing intermittent dizziness. Patient does not take BP at home currently due to a broken strap on her BP machine. Patient does have Home Care who per patient sometimes checks her BP and sometimes they do not. Denies chest pain and SOB. Advised PCP follow up to discuss and patient in agreement to be contacted by Navigation Team to assist. Are you experiencing any new or worsening symptoms you need to talk about today? Yes Based on body mechanic apprentice, the following disposition is advised: No symptoms or symptoms present, not severe. Routed to: Navigation Team: PCP visit within 48 hours LUZ ELENA Education Provided this Outreach: No Leno Lopez RN July 21, 2024 10:14 AM documented in this encounter [facility] 07-21-2024 Note HNO ID: [id number] Author: LENO LOPEZ RN Service: ? Author Type: Registered Nurse Type: Progress Notes Filed: 07/21/2024 10:25 Note Text: [facility] Telephonic Outreach Provider Action/FYI Navigation Team: Please contact patient to schedule appointment with Kurt Saravia MD or associate for left hip pain radiating to low back and left leg also intermittent dizziness. Contacted for: Routine Telephonic Outreach Contact made with patient: Yes Patient identified by name and date of . Discussed care with patient. Patient reports one to two weeks of left hip pain radiating to lower back and leg. Patient denies fall. She feels pain may be related to her cleaning out her garage recently. Patient states pain is intermittent. She also has been experiencing intermittent dizziness. Patient does not take BP at home currently due to a broken strap on her BP machine. Patient does have Home Care who per patient sometimes checks her BP and sometimes they do not. Denies chest pain and SOB. Advised PCP follow up to discuss and patient in agreement to be contacted by Navigation Team to assist. Are you experiencing any new or worsening symptoms you need to talk about today? Yes Based on body mechanic apprentice, the following disposition is advised: No symptoms or symptoms present, not severe. Routed to: Navigation Team: PCP visit within 48 hours LUZ ELENA Education Provided this Outreach: No Leno Lopez RN July 21, 2024 10:14 AM [facility] 07-21-2024 Note Patient Outreach ([facility] EDISON ALBARRAN ([id number]) 1945 [facility] Date Time Provider Department 07/21/24 LENO [facility]OPEZ [facility] During your visit today, we recorded the following information about you: Leno Lopez RN 07/21/2024 10:25 AM Signed CDM Telephonic Outreach Provider Action/ Navigation Team: Please contact patient to schedule appointment with Kurt Saravia MD or associate for left hip pain radiating to low back and left leg also intermittent dizziness. Contacted for: Routine Telephonic Outreach Contact made with patient: Yes Patient identified by name and date of . Discussed care with patient. Patient reports one to two weeks of left hip pain radiating to lower back and leg. Patient denies fall. She feels pain may be related to her cleaning out her garage recently. Patient states pain is intermittent. She also has been experiencing intermittent dizziness. Patient does not take BP at home currently due to a broken strap on her BP machine. Patient does have Home Care who per patient sometimes checks her BP and sometimes they do not. Denies chest pain and SOB. Advised PCP follow up to discuss and patient in agreement to be contacted by Navigation Team to assist. Are you experiencing any new or worsening symptoms you need to talk about today? Yes Based on body mechanic apprentice, the following disposition is advised: No symptoms or symptoms present, not severe. Routed to: Navigation Team: PCP visit within 48 hours LUZ ELENA Education Provided this Outreach: No Leno Lopez RN July 21, 2024 10:14 AM Yelena Rico MA 07/21/2024 10:35 AM Signed POPULATION HEALTH NAVIGATION OUTREACH Action/FYI Community Monitoring Navigation Pool/CDM Discuss/Due for: Follow Up/Acute Problem Visit Left Hip Pain/ Intermittent Dizziness Navigation Team: Please contact patient to schedule appointment with Kurt Saravia MD or associate for left hip pain radiating to low back and left leg also intermittent dizziness. Outcome: 1st attempt - Spoke to patient Scheduled with Kurt Saravia MD Reason for Outreach Community Monitoring/Network Navigator Pools AND Phone Line: CDM Patient Contacted: Spoke to patient/parent/or legal guardian Patient identified by name and : Yes Community Monitoring/Network Navigator Pools AND Phone Line actions taken: Patient scheduled: Follow-Up Appointment 07/22/2024 in [facility] with KURT SARAVIA - Follow Up/Acute Problem Visit - PER RN, Left Hip Pain/ Intermittent Dizziness 12/01/2024 in [facility] with COLTEN ORO - One year exam Navigation Signature: Yelena Rico MA July 21, 2024 10:28 AM Allergies As of Date: 07/21/2024 Noted Allergy Reaction BACTRIM (SULFAMETHOXAZOLE-TRIMETH* 015 14 - Other: See Comments Comments: Unknown. CEPHALEXIN 11/22/2014 14 - Other: See Comments Comments: Unknown. CITALOPRAM 01/05/2020 7 - Swelling Comments: Throat swelled CYMBALTA (DULOXETINE) 01/05/2020 14 - Other: See Comments Comments: Made her feel groggy. Date Reviewed: 03/10/2024 Reviewed by: Saray Alexander PA-C - Fully Assessed Reason for Visit: CDM [Other] Cmt: Telephonic Outreach Prescriptions as of 07/21/2024 - levothyroxine (SYNTHROID) 50 mcg tablet Take 1 tablet by mouth daily before breakfast. Sat-Sat and none on Saturday, Saturday - atorvastatin (LIPITOR) 40 mg tablet Take 1 tablet by mouth daily at bedtime. For cholesterol. - FLUoxetine (PROZAC) 40 mg capsule Take 1 capsule by mouth once daily. - potassium chloride SR (MICRO-K) 10 mEq CR capsule Take 2 capsules by mouth once daily. - QUEtiapine (SEROQUEL) 25 mg tablet take 1/2 tablet by mouth at bedtime - donepezil (ARICEPT) 5 mg tablet Take 1 tablet by mouth daily with breakfast. - gabapentin (NEURONTIN) 300 mg capsule Take 1 capsule by mouth daily at bedtime for 180 days. - mirabegron (MYRBETRIQ) 50 mg Tb24 Take 1 tablet by mouth once daily. - cyanocobalamin (VITAMIN B-12) 500 mcg tablet Take 1 tablet by mouth once daily. - omeprazole (PRILOSEC) 40 mg capsule Take 1 capsule by mouth two times a day. Take 30-60 minutes before breakfast and dinner on an empty stomach. - WALKER ROLLATOR SEAT WITH 6 WHEELS - RED Any color is fine and with a basket if available. Dx: Z91.81, M54.40, R20.8, M46.062 and R26.81 Problem List As Of Date 07/21/2024 Noted Resolved Osteoporosis [M81.0] 05/26/2015 Essential hypertension [I10] 2015 Mixed hyperlipidemia [E78.2] 2015 Hypothyroidism (acquired) [E03.9] 2015 Smoker [F17.200] 2015 Pain in joint, multiple sites [M25.50] 12/07/2015 Colon cancer screening [Z12.11] 12/07/2015 09/18/2019 Elevated fasting blood sugar [R73.01] 12/07/2015 09/18/2019 Hematuria [R31.9] 12/14/2015 09/18/2019 Bilateral carotid artery disease (HCC) [I77.9] 12/20/2015 (more content not included)... [facility] 07-08-2024 Telephone encounter Note Faxed signed order for urological supplies to [employer]. Analy Collins LPN [facility] 07-08-2024 Miscellaneous Notes Faxed signed order for urological supplies to [employer]. Analy Collins LPN documented in this encounter [facility] 06-23-2024 Note HNO ID: [id number] Author: LENO LOPEZ RN Service: ? Author Type: Registered Nurse Type: Progress Notes Filed: 06/23/2024 14:52 Note Text: [facility] Telephonic Outreach Provider Action/FYI Contacted for: Routine Telephonic Outreach Contact made with patient: Yes Patient identified by name and date of . Discussed care with patient Are you experiencing any new or worsening symptoms you need to talk about today? No Disease Specific Do you check your blood pressure at home? No Do you have new or worsening shortness of breath with activity? No Do you feel like you are dehydrated for any reason, including not being able to eat or drink normally, or having less urine/much darker urine than normal for you? No Do you check your daily weight at home? Yes, Have you noticed a sudden gain in weight greater than three pounds in a day or three pounds in a week? 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 Routed to: No Action Needed LUZ ELENA Education Provided this Outreach: No Leno Lopez RN June 23, 2024 2:50 PM [facility] 06-23-2024 History of Present illness Narrative [facility] Telephonic Outreach Provider Action/FYI Contacted for: Routine Telephonic Outreach Contact made with patient: Yes Patient identified by name and date of . Discussed care with patient Are you experiencing any new or worsening symptoms you need to talk about today? No Disease Specific Do you check your blood pressure at home? No Do you have new or worsening shortness of breath with activity? No Do you feel like you are dehydrated for any reason, including not being able to eat or drink normally, or having less urine/much darker urine than normal for you? No Do you check your daily weight at home? Yes, Have you noticed a sudden gain in weight greater than three pounds in a day or three pounds in a week? 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 Routed to: No Action Needed LUZ ELENA Education Provided this Outreach: No Leno Lopez RN June 23, 2024 2:50 PM documented in this encounter [facility] 06-23-2024 Note Patient Outreach ([facility]) EDISON ALBARRAN ([id number]) 1945 [facility] Date Time Provider Department 06/23/24 LENO LOPEZ [facility] During your visit today, we recorded the following information about you: Leno Lopez RN 06/23/2024 2:52 PM Signed CDM Telephonic Outreach Provider Action/FYI Contacted for: Routine Telephonic Outreach Contact made with patient: Yes Patient identified by name and date of . Discussed care with patient Are you experiencing any new or worsening symptoms you need to talk about today? No Disease Specific Do you check your blood pressure at home? No Do you have new or worsening shortness of breath with activity? No Do you feel like you are dehydrated for any reason, including not being able to eat or drink normally, or having less urine/much darker urine than normal for you? No Do you check your daily weight at home? Yes, Have you noticed a sudden gain in weight greater than three pounds in a day or three pounds in a week? 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 Routed to: No Action Needed LUZ ELENA Education Provided this Outreach: No Leno Lopez RN June 23, 2024 2:50 PM Allergies As of Date: 06/23/2024 Noted Allergy Reaction BACTRIM (SULFAMETHOXAZOLE-TRIMETH* 015 14 - Other: See Comments Comments: Unknown. CEPHALEXIN 11/22/2014 14 - Other: See Comments Comments: Unknown. CITALOPRAM 01/05/2020 7 - Swelling Comments: Throat swelled CYMBALTA (DULOXETINE) 01/05/2020 14 - Other: See Comments Comments: Made her feel groggy. Date Reviewed: 03/10/2024 Reviewed by: Saray Alexander PA-C - Fully Assessed Reason for Visit: CDM [Other] Cmt: Telephonic Outreach Prescriptions as of 06/23/2024 - levothyroxine (SYNTHROID) 50 mcg tablet Take 1 tablet by mouth daily before breakfast. Sat-Sat and none on Saturday, Saturday - atorvastatin (LIPITOR) 40 mg tablet Take 1 tablet by mouth daily at bedtime. For cholesterol. - FLUoxetine (PROZAC) 40 mg capsule Take 1 capsule by mouth once daily. - potassium chloride SR (MICRO-K) 10 mEq CR capsule Take 2 capsules by mouth once daily. - QUEtiapine (SEROQUEL) 25 mg tablet take 1/2 tablet by mouth at bedtime - donepezil (ARICEPT) 5 mg tablet Take 1 tablet by mouth daily with breakfast. - gabapentin (NEURONTIN) 300 mg capsule Take 1 capsule by mouth daily at bedtime for 180 days. - mirabegron (MYRBETRIQ) 50 mg Tb24 Take 1 tablet by mouth once daily. - cyanocobalamin (VITAMIN B-12) 500 mcg tablet Take 1 tablet by mouth once daily. - omeprazole (PRILOSEC) 40 mg capsule Take 1 capsule by mouth two times a day. Take 30-60 minutes before breakfast and dinner on an empty stomach. - WALKER ROLLATOR SEAT WITH 6 WHEELS - RED Any color is fine and with a basket if available. Dx: Z91.81, M54.40, R20.8, M46.062 and R26.81 Facility-Administered Medications as of 06/23/2024 - menthol-cetylpyridinium 1 Lozenge (CEPACOL LOZENGES) Problem List As Of Date 06/23/2024 Noted Resolved Osteoporosis [M81.0] 05/26/2015 Essential hypertension [I10] 2015 Mixed hyperlipidemia [E78.2] 2015 Hypothyroidism (acquired) [E03.9] 2015 Smoker [F17.200] 2015 Pain in joint, multiple sites [M25.50] 12/07/2015 Colon cancer screening [Z12.11] 12/07/2015 09/18/2019 Elevated fasting blood sugar [R73.01] 12/07/2015 09/18/2019 Hematuria [R31.9] 12/14/2015 09/18/2019 Bilateral carotid artery disease (HCC) [I77.9] 12/20/2015 09/18/2019 Decreased sensation of lower extremity [R20.8] 01/04/2016 Spinal stenosis, lumbar region, with neurogenic*01/23/2016 Urgency of urination [R39.15] 06/13/2016 Well adult exam [Z00.00] 12/26/2016 09/18/2019 Chronic bilateral low back pain with sciatica [*12/26/2016 Pain in both hands [M79.641, M79.642] 12/26/2016 09/18/2019 Encounter for screening mammogram for breast ca*12/26/2017 09/18/2019 Medicare annual wellness visit, subsequent [Z00*12/26/2017 Recurrent major depressive disorder, in remissi*07/01/2018 Medication management [Z79.899] 12/31/2018 Bilateral carotid artery stenosis [I65.23] 12/20/2015 Hematuria [R31.9] 12/14/2015 Moderate aortic insufficiency [I35.1] 01/19/2020 Agitation [R45.1] 02/02/2020 Lymphocytic colitis [K52.832] 05/16/2020 Sinus bradycardia [R00.1] 12/21/2020 Protein deficiency (HCC) [E46] 01/24/2021 09/20/2022 Essential tremor [G25.0] 09/18/2021 Living will on file [[id number]] 03/21/2022 Advance directive discussed with patient [Z71.8*03/21/2022 Stage 3a chronic kidney disease (HCC) [N18.31] 09/20/2022 Type 2 diabetes mellitus with stage 3a chronic *09/20/2022 Diabetic eye exam (HCC) [Z01.00, E11.9] 09/24/2022 Dementia without behavioral disturbance (HCC) [*12/20/2022 Hypokalemia [E87.6] 03/02/2023 Failure to thrive in adult [R62.7] 03/02/2023 Unste (more content not included)... [facility] 06-16-2024 Telephone encounter Note [facility] En[facility] to [facility]. Brenda Sanabria MA [facility] 06-16-2024 Miscellaneous Notes Blue Envelope to Speciality building. Brenda Sanabria MA [facility] they need to send incontinence supplies request to her Urologist, Colten Oro Attempted to contact patient; no answer; no voicemail. Contacted Berta to see if patient has been having increased issues with incontinence. She indicated that they are not out at her house enough or long enough to see if this has become an issue. Patient also sees [facility]. Brenda Sanabria MA Received fax from [facility] from [facility]. Patient requesting: Incontinence Supplies. Most recent O/V printed and given to PCP Brenda Sanabria MA documented in this encounter [facility] 06-16-2024 Telephone encounter Note [facility] they need to send incontinence supplies request to her Urologist, Coletn Oro [facility] 06-16-2024 Telephone encounter Note Attempted to contact patient; no answer; no voicemail. Contacted Berta to see if patient has been having increased issues with incontinence. She indicated that they are not out at her house enough or long enough to see if this has become an issue. Patient also sees [facility]. Brenda Sanabria MA [facility] 06-16-2024 Telephone encounter Note Received fax from [facility] from Alberto Lino. Patient requesting: Incontinence Supplies. Most recent O/V printed and given to PCP Brenda Sanabria MA [facility] 06-15-2024 Note HNO ID: [id number] Author: KURT SARAVIA MD Service: ? Author Type: Physician Type: Progress Notes Filed: 06/15/2024 16:19 Note Text: Patient's home health 485 form / care plan for certification period 06/10/2024 to 08/08/2024 reviewed and signed. Relevant medical records were reviewed. Changes were communicated to home health agency [facility] 06-15-2024 History of Present illness Narrative Patient's home health 485 form / care plan for certification period 06/10/2024 to 08/08/2024 reviewed and signed. Relevant medical records were reviewed. Changes were communicated to home health agency documented in this encounter [facility] 06-10-2024 Telephone encounter Note Advised Berta of Dr Saravia's message and instructions. She verbalizes understanding. Marty Barkley LPN [facility] 06-10-2024 Miscellaneous Notes Advised Berta of Dr Saravia's message and instructions. She verbalizes understanding. Marty Barkley LPN Yes, just needs to fax me the orders. Berta from [facility] calling asking if PCP would follow and sign orders for Home health aide services. Patient needs assist with bath/shower, reminder to take her medications, house cleaning and laundry, her dementia is getting worse. Can leave a message is secure voicemail. Please advise documented in this encounter [facility] 06-09-2024 Telephone encounter Note Yes, just needs to fax me the orders. [facility] 06-09-2024 Telephone encounter Note Berta from [facility] calling asking if PCP would follow and sign orders for Home health aide services. Patient needs assist with bath/shower, reminder to take her medications, house cleaning and laundry, her dementia is getting worse. Can leave a message is secure voicemail. Please advise [facility] 05-29-2024 Note HNO ID: [id number] Author: LENO LOPEZ, LILLI Service: ? Author Type: Registered Nurse Type: Progress Notes Filed: 05/29/2024 11:53 Note Text: CDM Telephonic Outreach Provider Action/FYI Contacted for: Routine Telephonic Outreach Contact made with patient: Yes Patient identified by name and date of . Discussed care with patient. Home Health services came into home today for the first time. Are you experiencing any new or worsening symptoms you need to talk about today? No Disease Specific Do you check your blood pressure at home? No Do you have new or worsening shortness of breath with activity? No Do you feel like you are dehydrated for any reason, including not being able to eat or drink normally, or having less urine/much darker urine than normal for you? No Do you check your daily weight at home? Yes, Have you noticed a sudden gain in weight greater than three pounds in a day or three pounds in a week? 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 Routed to: No Action Needed LUZ ELENA Education Provided this Outreach: No Leno Lopez RN May 29, 2024 11:52 AM [facility] 05-29-2024 History of Present illness Narrative [facility] Telephonic Outreach Provider Melanie/FYHunter Contacted for: Routine Telephonic Outreach Contact made with patient: Yes Patient identified by name and date of . Discussed care with patient. Home Health services came into home today for the first time. Are you experiencing any new or worsening symptoms you need to talk about today? No Disease Specific Do you check your blood pressure at home? No Do you have new or worsening shortness of breath with activity? No Do you feel like you are dehydrated for any reason, including not being able to eat or drink normally, or having less urine/much darker urine than normal for you? No Do you check your daily weight at home? Yes, Have you noticed a sudden gain in weight greater than three pounds in a day or three pounds in a week? 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 Routed to: No Action Needed LUZ ELENA Education Provided this Outreach: No Leno Lopez RN May 29, 2024 11:52 AM documented in this encounter [facility] 05-29-2024 Note Patient Outreach ([facility] EDISON ALBARRAN ([id number]) 1945 F ELENA Date Time Provider Department 05/29/24 LENO LOPEZ [facility] During your visit today, we recorded the following information about you: Leno Lopez, RN 05/29/2024 11:53 AM Signed CDM Telephonic Outreach Provider Action/FYI Contacted for: Routine Telephonic Outreach Contact made with patient: Yes Patient identified by name and date of . Discussed care with patient. Home Health services came into home today for the first time. Are you experiencing any new or worsening symptoms you need to talk about today? No Disease Specific Do you check your blood pressure at home? No Do you have new or worsening shortness of breath with activity? No Do you feel like you are dehydrated for any reason, including not being able to eat or drink normally, or having less urine/much darker urine than normal for you? No Do you check your daily weight at home? Yes, Have you noticed a sudden gain in weight greater than three pounds in a day or three pounds in a week? 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 Routed to: No Action Needed LUZ ELENA Education Provided this Outreach: No Leno Lopez RN May 29, 2024 11:52 AM Allergies As of Date: 05/29/2024 Noted Allergy Reaction BACTRIM (SULFAMETHOXAZOLE-TRIMETH* 015 14 - Other: See Comments Comments: Unknown. CEPHALEXIN 11/22/2014 14 - Other: See Comments Comments: Unknown. CITALOPRAM 01/05/2020 7 - Swelling Comments: Throat swelled CYMBALTA (DULOXETINE) 01/05/2020 14 - Other: See Comments Comments: Made her feel groggy. Date Reviewed: 03/10/2024 Reviewed by: Saray Alexander PA-C - Fully Assessed Reason for Visit: CDM [Other] Cmt: Telephonic Outreach Prescriptions as of 05/29/2024 - levothyroxine (SYNTHROID) 50 mcg tablet Take 1 tablet by mouth daily before breakfast. Mon-Sat and none on Saturday, Saturday - atorvastatin (LIPITOR) 40 mg tablet Take 1 tablet by mouth daily at bedtime. For cholesterol. - FLUoxetine (PROZAC) 40 mg capsule Take 1 capsule by mouth once daily. - potassium chloride SR (MICRO-K) 10 mEq CR capsule Take 2 capsules by mouth once daily. - QUEtiapine (SEROQUEL) 25 mg tablet take 1/2 tablet by mouth at bedtime - donepezil (ARICEPT) 5 mg tablet Take 1 tablet by mouth daily with breakfast. - gabapentin (NEURONTIN) 300 mg capsule Take 1 capsule by mouth daily at bedtime for 180 days. - mirabegron (MYRBETRIQ) 50 mg Tb24 Take 1 tablet by mouth once daily. - cyanocobalamin (VITAMIN B-12) 500 mcg tablet Take 1 tablet by mouth once daily. - omeprazole (PRILOSEC) 40 mg capsule Take 1 capsule by mouth two times a day. Take 30-60 minutes before breakfast and dinner on an empty stomach. - WALKER ROLLATOR SEAT WITH 6 WHEELS - RED Any color is fine and with a basket if available. Dx: Z91.81, M54.40, R20.8, M46.062 and R26.81 - cyclobenzaprine (FLEXERIL) 10 mg tablet Take 1 tablet by mouth every 8 hours as needed for muscle spasm (or pain). - wheat dextrin (BENEFIBER HEALTHY SHAPE) 5 gram/7.4 gram powd Take 2 teaspoonsful by mouth once daily. - VITAMIN E ACETATE ORAL Take 10 mg by mouth once daily. Facility-Administered Medications as of 05/29/2024 - menthol-cetylpyridinium 1 Lozenge (CEPACOL LOZENGES) Problem List As Of Date 05/29/2024 Noted Resolved Osteoporosis [M81.0] 05/26/2015 Essential hypertension [I10] 2015 Mixed hyperlipidemia [E78.2] 2015 Hypothyroidism (acquired) [E03.9] 2015 Smoker [F17.200] 2015 Pain in joint, multiple sites [M25.50] 12/07/2015 Colon cancer screening [Z12.11] 12/07/2015 09/18/2019 Elevated fasting blood sugar [R73.01] 12/07/2015 09/18/2019 Hematuria [R31.9] 12/14/2015 09/18/2019 Bilateral carotid artery disease (HCC) [I77.9] 12/20/2015 09/18/2019 Decreased sensation of lower extremity [R20.8] 01/04/2016 Spinal stenosis, lumbar region, with neurogenic*01/23/2016 Urgency of urination [R39.15] 06/13/2016 Well adult exam [Z00.00] 12/26/2016 09/18/2019 Chronic bilateral low back pain with sciatica [*12/26/2016 Pain in both hands [M79.641, M79.642] 12/26/2016 09/18/2019 Encounter for screening mammogram for breast ca*12/26/2017 09/18/2019 Medicare annual wellness visit, subsequent [Z00*12/26/2017 Recurrent major depressive disorder, in remissi*07/01/2018 Medication management [Z79.899] 12/31/2018 Bilateral carotid artery stenosis [I65.23] 12/20/2015 Hematuria [R31.9] 12/14/2015 Moderate aortic insufficiency [I35.1] 01/19/2020 Agitation [R45.1] 02/02/2020 Lymphocytic colitis [K52.832] 05/16/2020 Sinus bradycardia [R00.1] 12/21/2020 Protein deficiency (HCC) [E46] 01/24/2021 09/20/2022 Essential tremor [G25.0] 09/18/2021 Living will on file [[id number]] 03/21/2022 Advance directive discussed (more content not included)... [facility] 04-30-2024 Note HNO ID: [id number] Author: LENO LOPEZ RN Service: ? Author Type: Registered Nurse Type: Progress Notes Filed: 04/30/2024 14:51 Note Text: CDM Telephonic Outreach Provider Action/FYI Contacted for: Routine Telephonic Outreach Contact made with patient: Yes Patient identified by name and date of . Discussed care with patient. Patient report a fall getting out of bed to get to the phone. She hit the right side of her head on the nightstand. Patient denied LOC. Patient states she told the nurse in Dr. Saravia's office about the fall. She did have a goose egg to the right side of the head that she reports is getting better. Patient denies headache, nausea, and vomiting. Patient answering questions appropriately during phone call. Patient does say she has dizziness on and off but had experienced before the fall. Advised can have Virtualist contact patient to discuss her fall and patient declined. Red Flag symptoms addressed with patient and when to seek treatment in the ED. Are you experiencing any new or worsening symptoms you need to talk about today? No Disease Specific Do you check your blood pressure at home? No Do you have new or worsening shortness of breath with activity? No Do you feel like you are dehydrated for any reason, including not being able to eat or drink normally, or having less urine/much darker urine than normal for you? No Do you check your daily weight at home? Yes, Have you noticed a sudden gain in weight greater than three pounds in a day or three pounds in a week? 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 Routed to: No Action Needed LUZ ELENA Education Provided this Outreach: No Leno Lopez RN April 30, 2024 2:43 PM [facility] 04-30-2024 History of Present illness Narrative [facility] Telephonic Outreach Provider Action/FYI Contacted for: Routine Telephonic Outreach Contact made with patient: Yes Patient identified by name and date of . Discussed care with patient. Patient report a fall getting out of bed to get to the phone. She hit the right side of her head on the nightstand. Patient denied LOC. Patient states she told the nurse in Dr. Saravia's office about the fall. She did have a goose egg to the right side of the head that she reports is getting better. Patient denies headache, nausea, and vomiting. Patient answering questions appropriately during phone call. Patient does say she has dizziness on and off but had experienced before the fall. Advised can have Virtualist contact patient to discuss her fall and patient declined. Red Flag symptoms addressed with patient and when to seek treatment in the ED. Are you experiencing any new or worsening symptoms you need to talk about today? No Disease Specific Do you check your blood pressure at home? No Do you have new or worsening shortness of breath with activity? No Do you feel like you are dehydrated for any reason, including not being able to eat or drink normally, or having less urine/much darker urine than normal for you? No Do you check your daily weight at home? Yes, Have you noticed a sudden gain in weight greater than three pounds in a day or three pounds in a week? 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 Routed to: No Action Needed LUZ ELENA Education Provided this Outreach: No Leno Lopez RN April 30, 2024 2:43 PM documented in this encounter [facility] 04-30-2024 Telephone encounter Note Pt has been contacted by HAYLEY and ARACELI per chart. Briana Chavarria MA [facility] 04-30-2024 Miscellaneous Notes Pt has been contacted by HAYLEY and ARACELI per chart. Briana Chavarria MA PSS do not schedule these. They go to [place] and someone will be in touch with her, more than likely from [facility]. Spoke patient and gave her update. As of today she has not heard from anyone but I instructed that someone will be call to help facilitate HHC/PT and first calender worker will be contacting her as well. Reassured patient that if she needs anything to let us know. I assured her that Dr. Saravia is still her PCP. Patient indicated that she did have a fall last week. Was rushing to get to the phone and fell she thinks she hit on the side of the nightstand. She indicated that she didn't pass out but was able to get in bed and rest. She has been icing her right eye and forehead to help with swelling. Patient indicated that it is improving; no headache; no vision changes. Brenda Sanabria MA Attempted to contact patient via home phone. No answer no voicemail. Left message on Mobile phone. Brenda Sanabria MA Info noted. Just complete chart note and placed orders for [facility] for PHYSICAL THERAPY and [employer] C[employer] F[employer] Buff Material. Please update her of this and the fact some one from [facility] will be contacting her to do this at her home so she does not need tpo drive. Spoke with patient and gave her results. Patient indicated that she is doing the best she can. She is very upset. Because she trust Dr. Saravia as her doctor but she received 2 letters from the [place] one indicates that she no showed for 2 appointments. Patient indicated that she cannot always remember when her appointments are. Also she received another letter that she owes the [facility] over $[address] Saravia can no longer be her doctor. She was very upset. I told her our office didn't sent that letter the second letter but we do send letters if patient's no show. She also mentioned that she is by herself and trying to keep up with everything and is struggling. She indicated that she just found out that her son Casey apparently used her SSN# and charged for a phone/TV etc? She also find out that her wedding set and watch that is worth over $6,500 is missing. She mentioned she knows that Casey was on drugs and she did her best with him. She said she laughs all the time because if she didn't she would cry. I told patient I would update Dr. Saravia and advise. Bredna Sanabria MA Let patient know her lipid panel showed her Trigs are elevated and her LDL is elevated. These are much better when she takes her atorvastatin daily. The rest of her labs and urine testing was ok. documented in this encounter [facility] 04-30-2024 Note Patient Outreach ([facility]) AVISEDISON Castro ([id number]) 1945 F [facility] Date Time Provider Department 04/30/24 LENO LOPEZ [facility] During your visit today, we recorded the following information about you: Leno Lopez, RN 04/30/2024 2:51 PM Signed CDM Telephonic Outreach Provider Action/FYI Contacted for: Routine Telephonic Outreach Contact made with patient: Yes Patient identified by name and date of . Discussed care with patient. Patient report a fall getting out of bed to get to the phone. She hit the right side of her head on the nightstand. Patient denied LOC. Patient states she told the nurse in Dr. Saravia's office about the fall. She did have a goose egg to the right side of the head that she reports is getting better. Patient denies headache, nausea, and vomiting. Patient answering questions appropriately during phone call. Patient does say she has dizziness on and off but had experienced before the fall. Advised can have Virtualist contact patient to discuss her fall and patient declined. Red Flag symptoms addressed with patient and when to seek treatment in the ED. Are you experiencing any new or worsening symptoms you need to talk about today? No Disease Specific Do you check your blood pressure at home? No Do you have new or worsening shortness of breath with activity? No Do you feel like you are dehydrated for any reason, including not being able to eat or drink normally, or having less urine/much darker urine than normal for you? No Do you check your daily weight at home? Yes, Have you noticed a sudden gain in weight greater than three pounds in a day or three pounds in a week? 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 Routed to: No Action Needed LUZ ELENA Education Provided this Outreach: No Leno Lopez RN April 30, 2024 2:43 PM Allergies As of Date: 04/30/2024 Noted Allergy Reaction BACTRIM (SULFAMETHOXAZOLE-TRIMETH* 015 14 - Other: See Comments Comments: Unknown. CEPHALEXIN 11/22/2014 14 - Other: See Comments Comments: Unknown. CITALOPRAM 01/05/2020 7 - Swelling Comments: Throat swelled CYMBALTA (DULOXETINE) 01/05/2020 14 - Other: See Comments Comments: Made her feel groggy. Date Reviewed: 03/10/2024 Reviewed by: Saray Alexander PA-C - Fully Assessed Reason for Visit: CDM [Other] Cmt: Telephonic Outreach Prescriptions as of 04/30/2024 - levothyroxine (SYNTHROID) 50 mcg tablet Take 1 tablet by mouth daily before breakfast. Sat-Sat and none on Saturday, Saturday - atorvastatin (LIPITOR) 40 mg tablet Take 1 tablet by mouth daily at bedtime. For cholesterol. - FLUoxetine (PROZAC) 40 mg capsule Take 1 capsule by mouth once daily. - potassium chloride SR (MICRO-K) 10 mEq CR capsule Take 2 capsules by mouth once daily. - QUEtiapine (SEROQUEL) 25 mg tablet take 1/2 tablet by mouth at bedtime - donepezil (ARICEPT) 5 mg tablet Take 1 tablet by mouth daily with breakfast. - gabapentin (NEURONTIN) 300 mg capsule Take 1 capsule by mouth daily at bedtime for 180 days. - mirabegron (MYRBETRIQ) 50 mg Tb24 Take 1 tablet by mouth once daily. - cyanocobalamin (VITAMIN B-12) 500 mcg tablet Take 1 tablet by mouth once daily. - omeprazole (PRILOSEC) 40 mg capsule Take 1 capsule by mouth two times a day. Take 30-60 minutes before breakfast and dinner on an empty stomach. - WALKER ROLLATOR SEAT WITH 6 WHEELS - RED Any color is fine and with a basket if available. Dx: Z91.81, M54.40, R20.8, M46.062 and R26.81 - cyclobenzaprine (FLEXERIL) 10 mg tablet Take 1 tablet by mouth every 8 hours as needed for muscle spasm (or pain). - wheat dextrin (BENEFIBER HEALTHY SHAPE) 5 gram/7.4 gram powd Take 2 teaspoonsful by mouth once daily. - VITAMIN E ACETATE ORAL Take 10 mg by mouth once daily. Facility-Administered Medications as of 04/30/2024 - menthol-cetylpyridinium 1 Lozenge (CEPACOL LOZENGES) Problem List As Of Date 04/30/2024 Noted Resolved Osteoporosis [M81.0] 05/26/2015 Essential hypertension [I10] 2015 Mixed hyperlipidemia [E78.2] 2015 Hypothyroidism (acquired) [E03.9] 2015 Smoker [F17.200] 2015 Pain in joint, multiple sites [M25.50] 12/07/2015 Colon cancer screening [Z12.11] 12/07/2015 09/18/2019 Elevated fasting blood sugar [R73.01] 12/07/2015 09/18/2019 Hematuria [R31.9] 12/14/2015 09/18/2019 Bilateral carotid artery disease (HCC) [I77.9] 12/20/2015 09/18/2019 Decreased sensation of lower extremity [R20.8] 01/04/2016 Spinal stenosis, lumbar region, with neurogenic*01/23/2016 Urgency of urination [R39.15] 06/13/2016 Well adult exam [Z00.00] 12/26/2016 09/18/2019 Chronic bilateral low back pain with sciatica [*12/26/2016 Pain in both hands [M79.641, M79.642] 12/26/2016 09/18/2019 Encounter for screening mammogram for br (more content not included)... [facility] 04-29-2024 Telephone encounter Note PSS do not schedule these. They go to pool and someone will be in touch with her, more than likely from [facility] [place]. [facility] 04-29-2024 Telephone encounter Note Spoke patient and gave her update. As of today she has not heard from anyone but I instructed that someone will be call to help facilitate HHC/PT and first calender worker will be contacting her as well. Reassured patient that if she needs anything to let us know. I assured her that Dr. Saravia is still her PCP. Patient indicated that she did have a fall last week. Was rushing to get to the phone and fell she thinks she hit on the side of the nightstand. She indicated that she didn't pass out but was able to get in bed and rest. She has been icing her right eye and forehead to help with swelling. Patient indicated that it is improving; no headache; no vision changes. Brenda Sanabria MA [facility] 04-27-2024 Telephone encounter Note See Dr. Saravia note 04/21 regarding Sw response to below note. [facility] 04-27-[address] Saravia note 04/21 regarding Sw response to below note. Hayley left 2nd message, requesting call back, from [facility] [place] [facility] checking on status of Passport and if enrolled what services are being set up for patient. Hayley left message for [facility] in regards to status of patient Passport services being set up. Hayley requested call back to discuss where patient is at with Passport service set up and what services are looking to be set up. documented in this encounter [facility] 04-23-2024 Telephone encounter Note Hayley left 2nd message, requesting call back, from [facility] checking on status of Passport and if enrolled what services are being set up for patient. [facility] 04-22-2024 Telephone encounter Note Attempted to contact patient via home phone. No answer no voicemail. Left message on Mobile phone. Brenda Sanabria MA [facility] 04-21-2024 Telephone encounter Note I don't want [facility]. I ordered [facility]. If I had wanted [facility] I would have ordered it as an outside agency. The [facility] was a suggestion by the grand daughter who lives in [place]. [facility] 04-21-2024 Miscellaneous Notes I don't want [facility]. I ordered [facility]. If I had wanted [facility] I would have ordered it as an outside agency. The [facility] was a suggestion by the grand daughter who lives in [place]. Thank you for the referral of your patient to [facility]. Chart notes indicate that the patient choice for home care services is with [facility]. Please forward your orders to: [facility] - Please contact this agency and they will work with your patient to arrange timely services. We will cancel this referral. Thank you, VIOLETTA Yepez 04/21/2024 4:32 PM documented in this encounter [facility] 04-21-2024 Telephone encounter Note Thank you for the referral of your patient to [facility]. Chart notes indicate that the patient choice for home care services is with [facility]. Please forward your orders to: [facility] - Please contact this agency and they will work with your patient to arrange timely services. We will cancel this referral. Thank you, VIOLETTA Yepez 04/21/2024 4:32 PM [facility] 04-21-2024 Telephone encounter Note Hay[facility] in regards to status of patient Passport services being set up. Hayley requested call back to discuss where patient is at with Passport service set up and what services are looking to be set up. T [facility] 04-21-2024 Telephone encounter Note Info noted. Just complete chart note and placed orders for [facility] for PHYSICAL THERAPY and [employer] C[employer] Finger Buff Material. Please update her of this and the fact some one from [facility] will be contacting her to do this at her home so she does not need tpo drive. T [facility] 04-15-2024 Telephone encounter Note Spoke with patient and gave her results. Patient indicated that she is doing the best she can. She is very upset. Because she trust Dr. Saravia as her doctor but she received 2 letters from the [place] one indicates that she no showed for 2 appointments. Patient indicated that she cannot always remember when her appointments are. Also she received another letter that she owes the [facility] over $[address] Saravia can no longer be her doctor. She was very upset. I told her our office didn't sent that letter the second letter but we do send letters if patient's no show. She also mentioned that she is by herself and trying to keep up with everything and is struggling. She indicated that she just found out that her son Casey apparently used her SSN# and charged for a phone/TV etc? She also find out that her wedding set and watch that is worth over $6,500 is missing. She mentioned she knows that Casey was on drugs and she did her best with him. She said she laughs all the time because if she didn't she would cry. I told patient I would update Dr. Saravia and advise. Brenda Sanabria MA [facility] 04-14-2024 Telephone encounter Note Let patient know her lipid panel showed her Trigs are elevated and her LDL is elevated. These are much better when she takes her atorvastatin daily. The rest of her labs and urine testing was ok. [facility] 04-08-2024 History of Present illness Narrative Chief Complaint Patient presents with: Anxiety HPI Edison Albarran is a 78 year old female who presents here today for Chronic Medical Conditions. and Medicare Annual Visit. Patient indicated that she has been having issues with balance. Uses a walker when going outside due to balance. Patient indicated she has a rash on her right arm - was outside working around her evergreen shrubs. Patient has 2 bryan dogs and has had 4 batches of 7-8 puppies. Patient sees Saray Alexander for dementia. - please note from this visit. Patient says a woman came to her home yesterday to look in her home. Patient claims the person did not introduce herself and did not tell her who she was or from what agency she was from. Patient also says she can not really remember the conversation. Patient changes her story several times and adds info each time. Patient says the person told her nothing when she left other than thanks for letting me look at your house again Since Casey her son on 07/18/2024 she has noted her anxiety is much worse and her focus. Her only other son lives in [place] and he does not interact with her. Last time she saw him or talked with him was maybe a year ago. Her Granddaughter is trying to help but she lives in [place]. Patient drove herself to [employer] today and lives in [place]. Patient will drive to the [facility] in [place] to get what she needs otherwise will not leave her home because she is afraid to and it is also a hardship to leave her home due to her balance issues and since her memory is not good she just sticks to familiar locations. Patient claims to have had balance issues for years. She had a fall recently sliding off her bed and hit her head but refused to go to the ED. Patient told her grand daughter it was do to musculoskeletal pain. No dizziness or vision changes. Patient has a walker but does not use it to prevent falls. Says her home is to small to use it but did not bring it with her to help get into the office. Patient is having a problem remembering to take her medication. Then changes that and says it's not often. Does not want to move into an assisted living facility. Past medical history, appointments, medications, allergies reviewed. Previous Medical History PAST MEDICAL HISTORY Diagnosis Date Advance directive discussed with patient 03/21/202203/2022 Agitation 02/02/2020 Aneurysm of right subclavian artery (HCC) At risk for falling 04/12/2023 Bilateral carotid artery disease (HCC) 12/20/2015 US 12/2015: 20-40% on Rt and 40-60% on left. US 01/2017 unchanged. Chronic bilateral low back pain with sciatica 12/26/2016 Constipation 07/09/2018 after starting lipitor Decreased sensation of lower extremity 01/04/2016 Dementia without behavioral disturbance (HCC) 12/20/2022 Diabetic eye exam (HCC) 09/24/2022 Last done 08/08/22 Essential hypertension 2015 Essential tremor 09/18/2021 Ex-smoker 2015 1/2-1 PPD since early 50s, quit January 2018 Failure to thrive in adult 03/02/2023 Gastroesophageal reflux disease without esophagitis 09/25/2023 Hematuria 12/14/2015 Urology w/u neg. Hypothyroidism (acquired) 2015 Living will on file 03/21/2022 ROBERT; Casey (son) Lymphocytic colitis 05/16/2020 Possibly Zoloft related. Mediastinal lymphadenopathy 08/04/2018 Prominent Mediastinal lymphadenopathy noted on CT 08/01/18. CT 01/05/2019 no mediastinal lymphadenopathy Mixed hyperlipidemia 2015 Moderate aortic insufficiency 01/19/[address] Cordoba Osteoporosis 05/26/2015 Overactive bladder Pain in both hands 12/26/2016 Pain in joint, multiple sites 12/07/2015 On neurontin Primary insomnia 09/25/2023 Seeing Neuro Recurrent major depressive disorder, in remission ([facility]) 07/01/2018 Spinal stenosis, lumbar region, with neurogenic claudication 01/23/2016 Stage 3a chronic kidney disease ([facility]) 09/20/2022 Type 2 diabetes mellitus with stage 3a chronic kidney disease ([facility]) 09/20/2022 Type 2 diabetes mellitus without complication, without long-term current use of insulin ([facility]) 12/07/2015 Unsteady gait 03/06/2023 Urgency of urination 06/13/2016 Previous Surgical History PAST SURGICAL HISTORY Procedure Laterality Date 2D ECHO (EXEP) 09/2020 EF=64%, Mild Noe dysf and La enlargment, 2+ AR CARPAL TUNNEL RIGHT WRIST COLONOSCOPY 2010 repeat 10 yrs COLONOSCOPY FLX DX W/COLLJ SPEC WHEN PFRMD 04/21/2020 Colonoscopy CORRECTION OF BUNION Left ESOPHAGOGASTRODUODENOSCOPY TRANSORAL DIAGNOSTIC 04/21/2020 EGD FECAL OCCULT BLOOD TEST 01/01/2018 negative HYSTERECTOMY HX 1970 one ovary removed LEXISCAN STRESS TEST 11/21/2020 negative PAST SURGICAL HISTORY OF 1971 appendectomy PAST SURGICAL HISTORY OF 1987 breast lump, benign STRESS TEST 07/09/2016 WNL TUMOR REMOVAL (SPECIFY LOCATION) HX 2001 stomach Family History FAMILY HISTORY Problem Relation Age of Onset Breast Cancer Mother over 50 Hypertension Mother Lipids Mother Osteoporosis Mother Thyroid Mother Cancer Father stomach Cancer Brother lung Alzheimer's Disease Brother dementia Diabetes Brother Patient Allergies ALLERGIES Allergen Reactions Bactrim [Sulfametho* Other: See Comments Unknown. Cephalexin Other: See Comments Unknown. Citalopram Swelling Throat swelled Cymbalta [Duloxetin* Other: See Comments Made her feel groggy. Current Medications Current Outpatient Medications on File Prior to Visit Medication Sig atorvastatin (LIPITOR) 40 mg tablet Take 1 tablet by mouth daily at bedtime. For cholesterol. FLUoxetine (PROZAC) 40 mg capsule Take 1 capsule by mouth once daily. potassium chloride SR (MICRO-K) 10 mEq CR capsule Take 2 capsules by mouth once daily. QUEtiapine (SEROQUEL) 25 mg tablet take 1/2 tablet by mouth at bedtime donepezil (ARICEPT) 5 mg tablet Take 1 tablet by mouth daily with breakfast. gabapentin (NEURONTIN) 300 mg capsule Take 1 capsule by mouth daily at bedtime for 180 days. mirabegron (MYRBETRIQ) 50 mg Tb24 Take 1 tablet by mouth once daily. cyanocobalamin (VITAMIN B-12) 500 mcg tablet Take 1 tablet by mouth once daily. levothyroxine (SYNTHROID) 50 mcg tablet Take 1 tablet by mouth daily before breakfast. Sat-Sat and none on Saturday, Saturday omeprazole (PRILOSEC) 40 mg capsule Take 1 capsule by mouth two times a day. Take 30-60 minutes before breakfast and dinner on an empty stomach. WALKER ROLLATOR SEAT WITH 6 WHEELS - RED Any color is fine and with a basket if available. Dx: Z91.81, M54.40, R20.8, M46.062 and R26.81 cyclobenzaprine (FLEXERIL) 10 mg tablet Take 1 tablet by mouth every 8 hours as needed for muscle spasm (or pain). wheat dextrin (BENEFIBER HEALTHY SHAPE) 5 gram/7.4 gram powd Take 2 teaspoonsful by mouth once daily. amino acids (AMINO ACID ORAL) Take 3 g by mouth once daily. Peptide powder VITAMIN E ACETATE ORAL Take 10 mg by mouth once daily. ascorbic acid (VITAMIN C ORAL) Take 90 mg by mouth once daily. aspirin, enteric coated (ADULT LOW DOSE ASPIRIN) 81 mg EC tablet Take 1 tablet by mouth once daily. Current Facility-Administered Medications on File Prior to Visit Medication menthol-cetylpyridinium 1 Lozenge (CEPACOL LOZENGES) Social History Social History Tobacco Use Smoking status: Some Days Packs/day: .5 Types: Cigarettes Smokeless tobacco: Never Tobacco comments: Roughly one pack per week Vaping Use Vaping Use: Never used Substance Use Topics Alcohol use: Not Currently Drug use: Never Review of Symptoms REVIEW OF SYSTEMS See HPI EXAM: BP 124/60 (BP Site: Right Arm, BP Position: Sitting, BP Cuff Size: Regular Adult) Pulse 64 Resp 16 Ht 149.9 cm (4' 11 ) Wt 46.7 kg (103 lb) BMI 20.80 kg/m Last 6 Encounter Wt Readings: Date: Wt: 04/08/2024 46.7 kg (103 lb) 03/10/2024 45.5 kg (100 lb 6.4 oz) 11/26/2023 43.5 kg (96 lb) 11/26/2023 43.8 kg (96 lb 9.6 oz) 11/09/2023 44.5 kg (98 lb) 09/25/2023 46.3 kg (102 lb) General Appearance: Well appearing, alert, in no acute distress, well-hydrated, well nourished. Laughs quit often even when it's not something funny. Neck: Supple, no adenopathy; thyroid symmetric, normal size, no bruits. Lungs: Lungs clear to auscultation. No wheezing, rhonchi, rales.. Heart: RRR without murmur, gallop, or rubs. No ectopy. Abdomen: Normal abdominal exam, Abdomen soft, non-tender. Bowel sounds normal. No masses, organomegaly. Extremities: No deformities, edema, skin discoloration, clubbing or cyanosis. Good capillary refill. Skin: has small scratches from pine needles. No contact dermatitis or signs of infection. Health Maintenance List Bone Density Screening due on 02/28/2018 BP Controlled (<130/80) due on 04/25/2022 Dilated Retinal Exam due on 08/08/2023 Diabetic Foot Exam due on 09/20/2023 Advance Directive Discussion due on 10/07/2023 Covid-19 Vaccine( season) due on 11/15/2023 HbA1C due on 03/26/2024 RSV Vaccine(1 - 1-dose 60+ series) due on 09/25/2024 Shingrix Vaccine(2 of 2) due on 09/25/2024 Influenza Vaccine(1) due on 06/07/2024 Serum Creatinine due on 08/06/2024 Hemoglobin/Hematocrit due on 08/06/2024 Urine Albumin:Creatinine Ratio due on 09/25/2024 LDL Cholesterol due on 09/25/2024 Annual PCP Team Chronic Disease Visit due on 11/26/2024 DTaP,Tdap,Td Vaccine(3 - Td or Tdap) due on 05/29/2028 Pneumococcal Vaccine: 65+ Completed Colorectal Cancer Screening Discontinued Data reviewed A/P ASSESSMENT/PLAN: 1. Recurrent major depressive disorder, in remission (HCC) - ICD9: 296.35, ICD10: F33.40 (primary diagnosis) - this may be contributing to some of her worsened memory issues. I feel her inappropriate laughing is a way she handles or expresses her inner anxiety. 2. Falls frequently - ICD9: V15.88, ICD10: R29.6 - needs a PHYSICAL THERAPY gate and balance eval. Due to her difficulty leaving her home because of her balance and then her memory issues I feel its medically neccesary for her to be set up with home health care for PHYSICAL THERAPY eval and Tx. 3. Balance problem - ICD9: 781.99, ICD10: R26.89 - needs a PHYSICAL THERAPY gate and balance eval. Due to her difficulty leaving her home because of her balance and then her memory issues I feel its medically neccesary for her to be set up with home health care for PHYSICAL THERAPY eval and Tx. 4. Dementia without behavioral disturbance (HCC) - ICD9: 294.20, ICD10: F03.90 - because of this is is a hardship for patient to leave her home is not absolutely necessary and very anxiety provoking. I'm concerned about her forgetting to take he meds and not sure if she would benefit from a pill dispenser with an alarm as well as her safety to care for herself. Her granddaughter is trying to assist but lives in [place]. Therefore order placed for [facility] with SW consult. 5. Essential hypertension - ICD9: 401.9, ICD10: I10 - Controlled - Currently not requiring meds for management. - Recommend home blood pressure monitoring, to bring results to next visit - Encouraged sodium restriction, DASH or Mediterranean diet - Recommend regular aerobic exercise - COMPREHENSIVE METABOLIC PANEL 6. Hypothyroidism (acquired) - ICD9: 244.9, ICD10: E03.9 - Instructed patient on importance of taking on an empty stomach either first thing in the morning or at bedtime. - continue current dose of Synthroid Check - THYROID STIMULATING HORMONE - COMPLETE BLOOD COUNT AND DIFFERENTIAL 7. Stage 3a chronic kidney disease (HCC) - ICD9: 585.3, ICD10: N18.31 - eGFR: 77 Improving and back ijn normal range. - Counseled on avoiding NSAIDs, adequate hydration Check - COMPREHENSIVE METABOLIC PANEL - COMPLETE BLOOD COUNT AND DIFFERENTIAL 8. Encounter for immunization - ICD9: V03.89, ICD10: Z23 - [employer] COVID-19 VACCINE (2022- SEASON) AGE 12+ YR: given Concerned about her managing her finances. Says she was to get a check this month but not sure for what. She does not want to write checks any more. F/u Mally in Month for Medicare wellness. I spent a total of 47 minutes on the date of the service which included preparing to see the patient, [id number] patient care, completing clinical documentation, performing a medically appropriate examination, counseling and educating the patient/family/caregiver and ordering medications, tests, or procedures. Kurt Saravia MD documented in this encounter [facility] 04-08-2024 Note HNO ID: [id number] Author: KURT SARAVIA MD Service: ? Author Type: Physician Type: Progress Notes Filed: 04/21/2024 16:04 Note Text: Chief Complaint Patient presents with: Anxiety HPI Edison Albarran is a 78 year old female who presents here today for Chronic Medical Conditions. and Medicare Annual Visit. Patient indicated that she has been having issues with balance. Uses a walker when going outside due to balance. Patient indicated she has a rash on her right arm - was outside working around her evergreen shrubs. Patient has 2 bryan dogs and has had 4 batches of 7-8 puppies. Patient sees Saray Alexander for dementia. - please note from this visit. Patient says a woman came to her home yesterday to look in her home. Patient claims the person did not introduce herself and did not tell her who she was or from what agency she was from. Patient also says she can not really remember the conversation. Patient changes her story several times and adds info each time. Patient says the person told her nothing when she left other than thanks for letting me look at your house again Since Casey her son on 07/18/2024 she has noted her anxiety is much worse and her focus. Her only other son lives in [place] and he does not interact with her. Last time she saw him or talked with him was maybe a year ago. Her Granddaughter is trying to help but she lives in [place]. Patient drove herself to [employer] today and lives in [place]. Patient will drive to the [facility] in [place] to get what she needs otherwise will not leave her home because she is afraid to and it is also a hardship to leave her home due to her balance issues and since her memory is not good she just sticks to familiar locations. Patient claims to have had balance issues for years. She had a fall recently sliding off her bed and hit her head but refused to go to the ED. Patient told her grand daughter it was do to musculoskeletal pain. No dizziness or vision changes. Patient has a walker but does not use it to prevent falls. Says her home is to small to use it but did not bring it with her to help get into the office. Patient is having a problem remembering to take her medication. Then changes that and says it's not often. Does not want to move into an assisted living facility. Past medical history, appointments, medications, allergies reviewed. Previous Medical History PAST MEDICAL HISTORY Diagnosis Date Advance directive discussed with patient 03/21/202203/2022 Agitation 02/02/2020 Aneurysm of right subclavian artery (HCC) At risk for falling 04/12/2023 Bilateral carotid artery disease (HCC) 12/20/2015 US 12/2015: 20-40% on Rt and 40-60% on left. US 01/2017 unchanged. Chronic bilateral low back pain with sciatica 12/26/2016 Constipation 07/09/2018 after starting lipitor Decreased sensation of lower extremity 01/04/2016 Dementia without behavioral disturbance (HCC) 12/20/2022 Diabetic eye exam (HCC) 09/24/2022 Last done 08/08/22 Essential hypertension 2015 Essential tremor 09/18/2021 Ex-smoker 2015 1/2-1 PPD since early 50s, quit January 2018 Failure to thrive in adult 03/02/2023 Gastroesophageal reflux disease without esophagitis 09/25/2023 Hematuria 12/14/2015 Urology w/u neg. Hypothyroidism (acquired) 2015 Living will on file 03/21/2022 ZANDRA Peña (son) Lymphocytic colitis 05/16/2020 Possibly Zoloft related. Mediastinal lymphadenopathy 08/04/2018 Prominent Mediastinal lymphadenopathy noted on CT 08/01/18. CT 01/05/2019 no mediastinal lymphadenopathy Mixed hyperlipidemia 2015 Moderate aortic insufficiency 01/19/[address] Cordoba Osteoporosis 05/26/2015 Overactive bladder Pain in both hands 12/26/2016 Pain in joint, multiple sites 12/07/2015 On neurontin Primary insomnia 09/25/2023 Seeing Neuro Recurrent major depressive disorder, in remission ([facility]) 07/01/2018 Spinal stenosis, lumbar region, with neurogenic claudication 01/23/2016 Stage 3a chronic kidney disease ([facility]) 09/20/2022 Type 2 diabetes mellitus with stage 3a chronic kidney disease ([facility]) 09/20/2022 Type 2 diabetes mellitus without complication, without long-term current use of insulin ([facility]) 12/07/2015 Unsteady gait 03/06/2023 Urgency of urination 06/13/2016 Previous Surgical History PAST SURGICAL HISTORY Procedure Laterality Date 2D ECHO (EXEP) 09/2020 EF=64%, Mild Noe dysf and La enlargment, 2+ AR CARPAL TUNNEL RIGHT WRIST COLONOSCOPY 2010 repeat 10 yrs COLONOSCOPY FLX DX W/COLLJ SPEC WHEN PFRMD 04/21/2020 Colonoscopy CORRECTION OF BUNION Left ESOPHAGOGASTRODUODENOSCOPY TRANSORAL DIAGNOSTIC 04/21/2020 EGD FECAL OCCULT BLOOD TEST 01/01/2018 negative HYSTERECTOMY HX 1970 one ovary removed LEXISCAN STRESS TEST 11/21/2020 negative PAST SURGICAL HISTORY OF 1971 appendectomy PAST SURGICAL HISTORY OF 1987 breast lump, benign STRESS TEST (more content not included)... [facility] 04-06-2024 Telephone encounter Note Pt has an appointment today with Mally HAM at 1320. [facility] 04-06-2024 Miscellaneous Notes Pt has an appointment today with Mally HAM at 1320. Yes, a person may have Passport services and HH services at the same time. Passport services are particularly for home reservoir caretaker/non skilled assistance.HH is for mcfp, PT/OT, SW as long as patient is also home bound. Merrill can she have [facility] along with passport for residential for med adherence and home PHYSICAL THERAPY/OT? See Sw note 03/11/24, [facility] had noted to that they are working on setting up patient with Passport services. This is in the process. Once finalized patient could receive assistance with home reservoir caretaker, home delivered meals, transportation to medical appts, medical alert button cost. This would also mean patient is eligible for Medicaid as that is one of the main qualifiers. Went straight to voice mail. Left message to contact office as patient needs to be seen by provider. Brenda Sanabria MA Patient needs an appt to be seen to determine [facility] services such as nursing for medication adherence, SW for home safety, PHYSICAL THERAPY for balance issues and falls. Pt called in stating that providers office had called her several times. I could not see where we had called her. I do see where Dr Saravia had a message to Pt about making an appointment in order to get a visiting nurse set up. Pt was very confused and laughing at everything. She was talking about how she went driving and she came home and shut the garage door on her car and broke the door. She is laughing and states the neighbor came over and helped her fix it. I told her she shouldn't be driving herself to [place], and to call in when she can get a ride to an appointment. documented in this encounter [facility] 03-24-2024 Telephone encounter Note Yes, a person may have Passport services and HH services at the same time. Passport services are particularly for home reservoir caretaker/non skilled assistance.HH is for mcfp, PT/OT, SW as long as patient is also home bound. [facility] 03-24-2024 Telephone encounter Note Merrill can she have HHC along with passport for residential for med adherence and home PHYSICAL THERAPY/OT? [facility] 03-24-2024 Note HNO ID: [id number] Author: LENO LOPEZ RN Service: ? Author Type: Registered Nurse Type: Progress Notes Filed: 03/24/2024 11:54 Note Text: CDM Telephonic Outreach Provider Action/FYI Two week CDM telephonic outreach attempt. Contacted for: Routine Telephonic Outreach Contact made with patient: No, unable to leave message. Will reattempt call Leno Lopez RN March 24, 2024 11:54 AM [facility] 03-24-2024 History of Present illness Narrative CDM Telephonic Outreach Provider Action/FYI Two week CDM telephonic outreach attempt. Contacted for: Routine Telephonic Outreach Contact made with patient: No, unable to leave message. Will reattempt call Leno Lopez RN March 24, 2024 11:54 AM documented in this encounter [facility] 03-24-2024 Telephone encounter Note See Sw note 03/11/24, [employer] [facility] [employer] rep had noted to Sw that they are working on setting up patient with Passport services. This is in the process. Once finalized patient could receive assistance with home reservoir caretaker, home delivered meals, transportation to medical appts, medical alert button cost. This would also mean patient is eligible for Medicaid as that is one of the main qualifiers. [facility] 03-24-2024 Telephone encounter Note Went straight to voice mail. Left message to contact office as patient needs to be seen by provider. Brenda Sanabria MA [facility] 03-24-2024 Note Patient Outreach (AM [facility]) EDISON ALBARRAN ([id number]) [facility] Date Time Provider Department 03/24/24 [place]OPE[place] [facility] visit today, we recorded the following information about you: Leno Lopez RN 03/24/2024 11:54 AM Signed CDM Telephonic Outreach Provider Action/JOSE Two week CDM telephonic outreach attempt. Contacted for: Routine Telephonic Outreach Contact made with patient: No, unable to leave message. Will reattempt call Leno Lopez RN March 24, 2024 11:54 AM Allergies As of Date: 03/24/2024 Noted Allergy Reaction BACTRIM (SULFAMETHOXAZOLE-TRIMETH* 015 14 - Other: See Comments Comments: Unknown. CEPHALEXIN 11/22/2014 14 - Other: See Comments Comments: Unknown. CITALOPRAM 01/05/2020 7 - Swelling Comments: Throat swelled CYMBALTA (DULOXETINE) 01/05/2020 14 - Other: See Comments Comments: Made her feel groggy. Date Reviewed: 03/10/2024 Reviewed by: Saray Alexander PA-C - Fully Assessed Reason for Visit: CDM [Other] Cmt: Telephonic Outreach Prescriptions as of 04/22/2024 - levothyroxine (SYNTHROID) 50 mcg tablet Take 1 tablet by mouth daily before breakfast. Mon-Sat and none on Saturday, Saturday - atorvastatin (LIPITOR) 40 mg tablet Take 1 tablet by mouth daily at bedtime. For cholesterol. - FLUoxetine (PROZAC) 40 mg capsule Take 1 capsule by mouth once daily. - potassium chloride SR (MICRO-K) 10 mEq CR capsule Take 2 capsules by mouth once daily. - QUEtiapine (SEROQUEL) 25 mg tablet take 1/2 tablet by mouth at bedtime - donepezil (ARICEPT) 5 mg tablet Take 1 tablet by mouth daily with breakfast. - gabapentin (NEURONTIN) 300 mg capsule Take 1 capsule by mouth daily at bedtime for 180 days. - mirabegron (MYRBETRIQ) 50 mg Tb24 Take 1 tablet by mouth once daily. - cyanocobalamin (VITAMIN B-12) 500 mcg tablet Take 1 tablet by mouth once daily. - omeprazole (PRILOSEC) 40 mg capsule Take 1 capsule by mouth two times a day. Take 30-60 minutes before breakfast and dinner on an empty stomach. - WALKER ROLLATOR SEAT WITH 6 WHEELS - RED Any color is fine and with a basket if available. Dx: Z91.81, M54.40, R20.8, M46.062 and R26.81 - cyclobenzaprine (FLEXERIL) 10 mg tablet Take 1 tablet by mouth every 8 hours as needed for muscle spasm (or pain). - wheat dextrin (BENEFIBER HEALTHY SHAPE) 5 gram/7.4 gram powd Take 2 teaspoonsful by mouth once daily. - VITAMIN E ACETATE ORAL Take 10 mg by mouth once daily. Facility-Administered Medications as of 04/22/2024 - menthol-cetylpyridinium 1 Lozenge (CEPACOL LOZENGES) Problem List As Of Date 03/24/2024 Noted Resolved Osteoporosis [M81.0] 05/26/2015 Essential hypertension [I10] 2015 Mixed hyperlipidemia [E78.2] 2015 Hypothyroidism (acquired) [E03.9] 2015 Smoker [F17.200] 2015 Pain in joint, multiple sites [M25.50] 12/07/2015 Colon cancer screening [Z12.11] 12/07/2015 09/18/2019 Elevated fasting blood sugar [R73.01] 12/07/2015 09/18/2019 Hematuria [R31.9] 12/14/2015 09/18/2019 Bilateral carotid artery disease (HCC) [I77.9] 12/20/2015 09/18/2019 Decreased sensation of lower extremity [R20.8] 01/04/2016 Spinal stenosis, lumbar region, with neurogenic*01/23/2016 Urgency of urination [R39.15] 06/13/2016 Well adult exam [Z00.00] 12/26/2016 09/18/2019 Chronic bilateral low back pain with sciatica [*12/26/2016 Pain in both hands [M79.641, M79.642] 12/26/2016 09/18/2019 Encounter for screening mammogram for breast ca*12/26/2017 09/18/2019 Medicare annual wellness visit, subsequent [Z00*12/26/2017 Recurrent major depressive disorder, in remissi*07/01/2018 Medication management [Z79.899] 12/31/2018 Bilateral carotid artery stenosis [I65.23] 12/20/2015 Hematuria [R31.9] 12/14/2015 Moderate aortic insufficiency [I35.1] 01/19/2020 Agitation [R45.1] 02/02/2020 Lymphocytic colitis [K52.832] 05/16/2020 Sinus bradycardia [R00.1] 12/21/2020 Protein deficiency (HCC) [E46] 01/24/2021 09/20/2022 Essential tremor [G25.0] 09/18/2021 Living will on file [[id number]] 03/21/2022 Advance directive discussed with patient [Z71.8*03/21/2022 Stage 3a chronic kidney disease (HCC) [N18.31] 09/20/2022 Type 2 diabetes mellitus with stage 3a chronic *09/20/2022 Diabetic eye exam (HCC) [Z01.00, E11.9] 09/24/2022 Dementia without behavioral disturbance (HCC) [*12/20/2022 Hypokalemia [E87.6] 03/02/2023 Failure to thrive in adult [R62.7] 03/02/2023 Unsteady gait [R26.81] 03/06/2023 At risk for falling [Z91.81] 04/12/2023 Gastroesophageal reflux disease without esophag*09/25/2023 Primary insomnia [F51.01] 09/25/2023 Encounter Status:Closed by LENO LOPEZ on 03/24/24 [facility] 03-23-2024 Telephone encounter Note Patient needs an appt to be seen to determine [facility] services such as nursing for medication adherence, SW for home safety, PHYSICAL THERAPY for balance issues and falls. [facility] 03-23-2024 Telephone encounter Note Pt called in stating that providers office had called her several times. I could not see where we had called her. I do see where Dr Saravia had a message to Pt about making an appointment in order to get a visiting nurse set up. Pt was very confused and laughing at everything. She was talking about how she went driving and she came home and shut the garage door on her car and broke the door. She is laughing and states the neighbor came over and helped her fix it. I told her she shouldn't be driving herself to [place], and to call in when she can get a ride to an appointment. [facility] 03-18-2024 Telephone encounter Note Noted. [facility] 03-18-2024 Miscellaneous Notes Noted. documented in this encounter [facility] 03-12-2024 Telephone encounter Note Sw spoke with Luna Martini, [facility] and she notes that she received form from Dr. Saravia and they are working to process form to see about patient eligibility for service assistance from [facility]. [facility] 03-12-2024 Miscellaneous Notes Hayley spoke with Luna Martini [employer] and she notes that she received form from Dr. Saravia and they are working to process form to see about patient eligibility for service assistance from [employer]. [facility] received back physician completed referral for [employer] services. [place], We have not records of receiving anything back from them. Only record is us faxing the information to them. Brenda Sanabria MA Did we ever receiving any information back from [facility] after faxing them physician form on 02/20/24? Hayley called patient in regards to recent visit with Wesley So. Concern for patient living alone and what services patient receiving. No answer when Hayley called patient. Hayley note from 11/26/23 notes that [facility] having [facility] staff work with patient and niece in regards to applying to their services. Hayley notes in scanned documents under 02/25/24 [facility] had sent form to Dr. Saravia to complete for patient level of care need. Looks like Dr. Saravia has completed the Level of Care forms. documented in this encounter [facility] 03-11-2024 Telephone encounter Note Hayley left message for return call from Lianet Ross,[facility] to make sure that she received back physician completed referral for [employer] services. [facility] 03-11-2024 Telephone encounter Note [place], We have not records of receiving anything back from them. Only record is us faxing the information to them. Brenda Sanabria MA [facility] 03-11-2024 Telephone encounter Note Did we ever receiving any information back from [facility] after faxing them physician form on 02/20/24? [facility] 03-11-2024 Telephone encounter Note Sw called patient in regards to recent visit with Wesley So. Concern for patient living alone and what services patient receiving. No answer when Sw called patient. Hayley note from 11/26/23 notes that [facility] was having their staff work with patient and niece in regards to applying to their services. Hayley notes in scanned documents under 02/25/24 [facility] had sent form to Dr. Saravia to complete for patient level of care need. Looks like Dr. Saravia has completed the Level of Care forms. [facility] 03-10-2024 Instructions Saray Alexander PA-C - 03/10/2024 2:27 PM EDT Increase water intake to 60 ounces a day, decrease caffeine Will reach out to your primary care about your chest pain Follow up with brain health for memory loss. Follow up in 3 months documented in this encounter [facility] 03-10-2024 Note HNO ID: [id number] Author: SARAY ALEXANDER PA-C Service: ? Author Type: Physician Technical Assistant Type: Progress Notes Filed: 03/10/2024 15:11 Note Text: Neurology Outpatient Clinic Date: March 10, 2024 Patient Name: Edison Albarran Referring physician: No referring provider defined for this encounter. Primary physician: Kurt Saravia [address] [place] [address] Reason for Evaluation: memory loss Subjective HPI Edison Albarran is a 78 year old right-handed female with history of tremor, insomnia, HTN, HLD, CKD stage 3, DM type 2, hypothyroidism, depression, lumbar stenosis, dementia who presents for evaluation of memory loss. Dr. Kurt Saravia MD is the PCP. Chart review: Saw PCP on 11/26/23 for dementia, lives alone. On aricept 5mg and seroquel. Last saw brain [facility] 07/24/23 and noted possibly stopping seroquel due to dizziness, decreased Aricept to 5mg due to dizziness. Patient presents with a friend for multiple concerns. Patient notes she has been having frequent falls, dizziness and memory issues. Follows with brain [facility] with last appointment in July and is on 5 mg of Aricept and 12.5 mg of Seroquel. However, history is extremely limited, patient does not remember the names of any of her medications and is very poor historian. Notes that her last fall was on Saturday, had her dog and her leash. Notes that her dog was a full-grown pit bull lunged forward causing her to fall. States that people told her that she flipped up in the air and landed on her back. Does not remember anything regarding this, is unsure if she lost consciousness. Notes that she now having some left-sided rib pain and has some difficulty breathing in deeply and moving. Notes history of fractures in the ribs in the past. Notes that her last fall before this was a few months ago due to dizziness. Describes the dizziness as a presyncope, lightheadedness that is worse in the morning and worse after eating. Notes that over the last few months or so she has been having issues with nausea and vomiting, has been followed with GI for years. Drinks to fall pitchers of caffeinated black tea a day along with protein shakes. No recent weight loss. Notes that she currently lives alone after her son in July. Notes that she can go a month that talking anyone and primarily talks with her dogs. History is limited, but it sounds like patient has upwards of 9+ dogs at home. States that her dog recently had puppies and she has multiple young puppies at home as well that are destroying her house . Notes that she is very overwhelmed with this and is unable to greens picker the dogs due to their size. Patient's friend states that he saw her medications today and both January and February were untouched, she did not take medications at all during these months. Patient is unable to give an explanation as to why. Patient does have a life alert necklace but does not wear it. Patient does not regularly leave the stove on, states that she will set a timer for 15 minutes when she starts cooking so that she has back into the kitchen to turn off the stove. Cleans her own house, but states she is having some issues with that right now. No longer drives. Labs/Imaging CT brain 03/01/23 IMPRESSION: No acute intracranial abnormality. 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 MRI brain 12/19/22 IMPRESSION: No acute intracranial findings. Moderate background chronic microvascular ischemic change. Moderate generalized brain volume loss, some progression since prior study. CTA head and neck 12/19/22 IMPRESSION: Atherosclerotic change as noted. No significant carotid stenosis on the right. 70% short segment left ICA stenosis. Vertebral arteries are patent in the neck. Left is dominant. Patent intracranial arterial and venous vasculature. No evidence for acute proximal large vessel occlusion or venous occlusion. Medications: Current Outpatient Medications Medication Sig Dispense Refill atorvastatin (LIPITOR) 40 mg tablet Take 1 tablet by mouth daily at bedtime. For cholesterol. 90 tablet 1 FLUoxetine (PROZAC) 40 mg capsule Take 1 capsule by mouth once daily. 30 capsule 5 potassium chloride SR (MICRO-K) 10 mEq CR capsule Take 2 capsules by mouth once daily. 60 capsule 5 QUEtiapine (SEROQUEL) 25 mg tablet take 1/2 tablet by mouth at bedtime 90 tablet 1 donepezil (ARICEPT) 5 mg tablet Take 1 tablet by mouth daily with breakfast. 90 tablet 0 gabapentin (NEURONTIN) 300 mg capsule Take 1 capsule by mouth daily at bedtime for 180 days. 90 capsule 1 mirabegron (MYRBETRIQ) 50 mg Tb24 Take 1 tablet by mouth once daily. 90 tablet 3 cyanocobalamin (VITAMIN B-12) 500 mcg tablet Take 1 ta (more content not included)... [facility] 03-10-2024 History of Present illness Narrative Images from the original note were not included. Neurology Outpatient Clinic Date: March 10, 2024 Patient Name: Edison Albarran Referring physician: No referring provider defined for this encounter. Primary physician: Kurt Saravia [address] [place] [address] Reason for Evaluation: memory loss Subjective HPI Edison Albarran is a 78 year old right-handed female with history of tremor, insomnia, HTN, HLD, CKD stage 3, DM type 2, hypothyroidism, depression, lumbar stenosis, dementia who presents for evaluation of memory loss. Dr. Kurt Saravia MD is the PCP. Chart review: Saw PCP on 11/26/23 for dementia, lives alone. On aricept 5mg and seroquel. [facility] and noted possibly stopping seroquel due to dizziness, decreased Aricept to 5mg due to dizziness. Patient presents with a friend for multiple concerns. Patient notes she has been having frequent falls, dizziness and memory issues. [facility] with [facility] appointment in July and is on 5 mg of Aricept and 12.5 mg of Seroquel. However, history is extremely limited, patient does not remember the names of any of her medications and is very poor historian. Notes that her last fall was on Saturday, had her dog and her leash. Notes that her dog was a full-grown pit bull lunged forward causing her to fall. States that people told her that she flipped up in the air and landed on her back. Does not remember anything regarding this, is unsure if she lost consciousness. Notes that she now having some left-sided rib pain and has some difficulty breathing in deeply and moving. Notes history of fractures in the ribs in the past. Notes that her last fall before this was a few months ago due to dizziness. Describes the dizziness as a presyncope, lightheadedness that is worse in the morning and worse after eating. Notes that over the last few months or so she has been having issues with nausea and vomiting, has been followed with GI for years. Drinks to fall pitchers of caffeinated black tea a day along with protein shakes. No recent weight loss. Notes that she currently lives alone after her son in July. Notes that she can go a month that talking anyone and primarily talks with her dogs. History is limited, but it sounds like patient has upwards of 9+ dogs at home. States that her dog recently had puppies and she has multiple young puppies at home as well that are destroying her house . Notes that she is very overwhelmed with this and is unable to greens picker the dogs due to their size. Patient's friend states that he saw her medications today and both January and February were untouched, she did not take medications at all during these months. Patient is unable to give an explanation as to why. Patient does have a life alert necklace but does not wear it. Patient does not regularly leave the stove on, states that she will set a timer for 15 minutes when she starts cooking so that she has back into the kitchen to turn off the stove. Cleans her own house, but states she is having some issues with that right now. No longer drives. Labs/Imaging CT brain 03/01/23 IMPRESSION: No acute intracranial abnormality. 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 MRI brain 12/19/22 IMPRESSION: No acute intracranial findings. Moderate background chronic microvascular ischemic change. Moderate generalized brain volume loss, some progression since prior study. CTA head and neck 12/19/22 IMPRESSION: Atherosclerotic change as noted. No significant carotid stenosis on the right. 70% short segment left ICA stenosis. Vertebral arteries are patent in the neck. Left is dominant. Patent intracranial arterial and venous vasculature. No evidence for acute proximal large vessel occlusion or venous occlusion. Medications: Current Outpatient Medications Medication Sig Dispense Refill atorvastatin (LIPITOR) 40 mg tablet Take 1 tablet by mouth daily at bedtime. For cholesterol. 90 tablet 1 FLUoxetine (PROZAC) 40 mg capsule Take 1 capsule by mouth once daily. 30 capsule 5 potassium chloride SR (MICRO-K) 10 mEq CR capsule Take 2 capsules by mouth once daily. 60 capsule 5 QUEtiapine (SEROQUEL) 25 mg tablet take 1/2 tablet by mouth at bedtime 90 tablet 1 donepezil (ARICEPT) 5 mg tablet Take 1 tablet by mouth daily with breakfast. 90 tablet 0 gabapentin (NEURONTIN) 300 mg capsule Take 1 capsule by mouth daily at bedtime for 180 days. 90 capsule 1 mirabegron (MYRBETRIQ) 50 mg Tb24 Take 1 tablet by mouth once daily. 90 tablet 3 cyanocobalamin (VITAMIN B-12) 500 mcg tablet Take 1 tablet by mouth once daily. 90 tablet 1 levothyroxine (SYNTHROID) 50 mcg tablet Take 1 tablet by mouth daily before breakfast. Mon-Fri and none on Saturday, Saturday 90 tablet 1 omeprazole (PRILOSEC) 40 mg capsule Take 1 capsule by mouth two times a day. Take 30-60 minutes before breakfast and dinner on an empty stomach. 180 capsule 3 WALKER ROLLATOR SEAT WITH 6 WHEELS - RED Any color is fine and with a basket if available. Dx: Z91.81, M54.40, R20.8, M46.062 and R26.81 1 Each 0 cyclobenzaprine (FLEXERIL) 10 mg tablet Take 1 tablet by mouth every 8 hours as needed for muscle spasm (or pain). 30 tablet 0 wheat dextrin (BENEFIBER HEALTHY SHAPE) 5 gram/7.4 gram powd Take 2 teaspoonsful by mouth once daily. amino acids (AMINO ACID ORAL) Take 3 g by mouth once daily. Peptide powder VITAMIN E ACETATE ORAL Take 10 mg by mouth once daily. ascorbic acid (VITAMIN C ORAL) Take 90 mg by mouth once daily. aspirin, enteric coated (ADULT LOW DOSE ASPIRIN) 81 mg EC tablet Take 1 tablet by mouth once daily. 0 No current facility-administered medications for this visit. Facility-Administered Medications Ordered in Other Visits Medication Dose Route Frequency Provider Last Rate Last Admin menthol-cetylpyridinium 1 Lozenge (CEPACOL LOZENGES) 1 Lozenge ORAL Karlos Koenig MD 1 Lozenge at 12/11/22 1312 ROS ROS: Her ROS was positive for that mentioned in the HPI. Otherwise a 10-point ROS was completed and was negative. ALLERGIES Allergen Reactions Bactrim [Sulfametho* Other: See Comments Unknown. Cephalexin Other: See Comments Unknown. Citalopram Swelling Throat swelled Cymbalta [Duloxetin* Other: See Comments Made her feel groggy. Past Medical History: PAST MEDICAL HISTORY Diagnosis Date Advance directive discussed with patient 03/21/202203/2022 Agitation 02/02/2020 Aneurysm of right subclavian artery (HCC) At risk for falling 04/12/2023 Bilateral carotid artery disease (HCC) 12/20/2015 US 12/2015: 20-40% on Rt and 40-60% on left. US 01/2017 unchanged. Chronic bilateral low back pain with sciatica 12/26/2016 Constipation 07/09/2018 after starting lipitor Decreased sensation of lower extremity 01/04/2016 Dementia without behavioral disturbance (HCC) 12/20/2022 Diabetic eye exam ([facility]) 09/24/2022 Last done 08/08/22 Essential hypertension 2015 Essential tremor 09/18/2021 Ex-smoker 2015 1/2-1 PPD since early 50s, quit January 2018 Failure to thrive in adult 03/02/2023 Gastroesophageal reflux disease without esophagitis 09/25/2023 Hematuria 12/14/2015 Urology w/u neg. Hypothyroidism (acquired) 2015 Living will on file 03/21/2022 DPA; Casey (son) Lymphocytic colitis 05/16/2020 Possibly Zoloft related. Mediastinal lymphadenopathy 08/04/2018 Prominent Mediastinal lymphadenopathy noted on CT 08/01/18. CT 01/05/2019 no mediastinal lymphadenopathy Mixed hyperlipidemia 2015 Moderate aortic insufficiency 01/19/[address] Cordoba Osteoporosis 05/26/2015 Overactive bladder Pain in both hands 12/26/2016 Pain in joint, multiple sites 12/07/2015 On neurontin Primary insomnia 09/25/2023 Seeing Neuro Recurrent major depressive disorder, in remission ([facility]) 07/01/2018 Spinal stenosis, lumbar region, with neurogenic claudication 01/23/2016 Stage 3a chronic kidney disease (HCC) 09/20/2022 Type 2 diabetes mellitus with stage 3a chronic kidney disease (HCC) 09/20/2022 Type 2 diabetes mellitus without complication, without long-term current use of insulin ([facility]) 12/07/2015 Unsteady gait 03/06/2023 Urgency of urination 06/13/2016 Family History: FAMILY HISTORY Problem Relation Age of Onset Breast Cancer Mother over 50 Hypertension Mother Lipids Mother Osteoporosis Mother Thyroid Mother Cancer Father stomach Cancer Brother lung Alzheimer's Disease Brother dementia Diabetes Brother Also includes: . Social History: Social History Tobacco Use Smoking status: Some Days Packs/day: .5 Types: Cigarettes Smokeless tobacco: Never Tobacco comments: Roughly one pack per week Vaping Use Vaping Use: Never used Substance Use Topics Alcohol use: Not Currently Drug use: Never Objective 03/10/24 1348 03/10/24 1355 Orthostatic BP: 90/43 99/66 Orthostatic Pulse: 74 90 Resp: 16 SpO2: 98% 98% Weight: 45.5 kg (100 lb 6.4 oz) Physical Examination General Appearance: Well appearing, alert, in no acute distress, well-hydrated, well nourished. Head: Normocephalic Pulm: Breathing comfortably Neck: Supple Psych: Cooperative, appropriate affect Chest wall: No bruising or crepitance to left chest wall, but significant tenderness throughout. Neurological Examination: Mental Status: Alert and Oriented to Place, Person, Time and Situation and Patient follows commands.. Language: Is intact to Comprehension, Fluency and Repetition Cranial Nerves: CNII: Visual acuity normal, visual voss full to confrontation CNIII, IV, : Pupils equal, round and reactive to light, full extraoccular movements, without nystagmus CN V: Facial sensation intact bilaterally to fine touch CN VII: Facial muscles symmetric and strong CN VIII: Hears finger rub well bilaterally CN IX: Gag Reflex not examined CN X: Palate elevates symmetrically CN XI: Full strength shoulder shrug bilaterally CN XII: Tongue protrusion full and midline Motor Exam: Tone - Normal Tone noted in all extremities Bulk - Normal bulk noted in all muscles tested. Inspection - Normal, no fasciculations or tremors noted. Power: MUSCLES Upper Extremity RIGHT LEFT Deltoid 5/5 5/5 Biceps 5/5 5/5 Triceps 5/5 5/5 Wrist Extension 5/5 5/5 Wrist Flexion 5/5 5/5 Finger Flexion 5/5 5/5 Finger Extension 5/5 5/5 Finger Abd 5/5 5/5 Finger Add 5/5 5/5 MUSCLES Lower Extremity RIGHT LEFT Hip Flexion 02/08 02/08 Hip Extension 02/08 02/08 BiFem (Knee Flex) 02/08 02/08 Quads (Knee Ext) 02/08 02/08 Gastroc (Plantflx) 02/08 02/08 TibAnt (Dorsiflx) 02/08 02/08 FlxHLong (Toe Flex) 02/08 02/08 ExtHLong (Toe Ext) 02/08 02/08 Sensory Examination Sensation is intact to light touch Reflexes Right Left Bicep /11/10 Tricep /11/10 BrRad 11/10 11/10 Knee 11/10 11/10 Ankle 11/10 11/10 Coordination: finger-to- nose-finger intact bilaterally and [id number] intact bilaterally. Gait: Patient's gait is normal DATA REVIEWED Actual films/image/tracing reviewed and summarized as follows: CT brain, MRI brain Old records reviewed and summarized as follows: Brain [facility], primary care Assessment/Plan Assessment & Plan: Edison Albarran is a 78 year old right-handed female with a history of dementia, essential tremor, primary insomnia, hypertension, hyperlipidemia, diabetes mellitus type 2, CKD stage IIIa, hypothyroidism, osteoporosis, depression. Her examination demonstrates thin appearing, tenderness to the left chest wall.. Patient presents today, unsure what she is being seen for. Referrals for memory loss per patient [facility]. Patient presents with her friend who provides some history, however history is significantly limited. Patient reporting some dizziness and some frequent falls, last of which was on Saturday. Notes that she may have lost consciousness with this and has significant left-sided chest wall pain. Does have some significant tenderness on exam, but otherwise exam is reassuring. Will order chest x-ray and forward to primary care due to concern for rib fracture. Encourage close follow-up with primary care after today's appointment for further evaluation. Regarding dizziness, describes a lightheaded, presyncope sensation that is worse in the morning and after eating. Patient's blood pressure was significantly hypotensive at 90/43 today. Patient drinks upwards of 2 full pitchers of caffeinated black tea and not much water, also has issues with vomiting and nausea. Concern for hypovolemia contributing to hypotension which is likely causing dizziness. Encourage patient to drink less caffeinated beverages and more water and other fluids. Patient agrees and understands. Patient does have a life alert necklace and encouraged her to wear this. Will also reach out to social work due to patient's living situation. I am very concerned about patient living alone, does not have regular figures, states that she can go months without seeing anyone or talking anyone. This with her issues with medications, a friend who presents with her today states that she did not take any medications for the months of January or February and patient is unable to tell me what medication she is on or when she taken. Concern for patient's safety at home and I discussed this at length with patient and her friend today. After patient left, did reach out to primary care and expressed my concerns for patient's safety. Patient and friend agreeable to treatment plan of care at this time, questions were answered. Patient to follow-up in 3 months or sooner should any symptoms change or worsen. Edison was seen today for follow up and new patient. 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 I spent a total of 60 minutes on the date of the service which included preparing to see the patient, [id number] patient care, completing clinical documentation, obtaining and/or reviewing separately obtained history, performing a medically appropriate examination, counseling and educating the patient/family/caregiver, and ordering medications, tests, or procedures. Saray Alexander PA-C [facility] This document has been created with the use of voice recognition technology. It may contain inaccuracies: (e.g. misspellings, inaccurate syntax or word sense) that have escaped review. documented in this encounter [facility] 03-10-2024 Note HNO ID: [id number] Author: ERIK PONCE LPN Service: ? Author Type: LICENSED NURSE Type: Progress Notes Filed: 03/10/2024 15:11 Note Text: [facility] 03-10-2024 Note HNO ID: [id number] Author: LENO LOPEZ RN Service: ? Author Type: Registered Nurse Type: Progress Notes Filed: 03/10/2024 09:53 Note Text: CD[facility] Telephonic Outreach Provider Action/FYI #2 attempt to contact patient. Contacted for: Routine Telephonic Outreach Contact made with patient: No, unable to leave message. Will reattempt call Leno Lopez RN March 10, 2024 9:53 AM [facility] 03-10-2024 History of Present illness Narrative CD Telephonic Outreach Provider Action/FYI #2 attempt to contact patient. Contacted for: Routine Telephonic Outreach Contact made with patient: No, unable to leave message. Will reattempt call Leno Lopez RN March 10, 2024 9:53 AM documented in this encounter [facility] 03-10-2024 Note Patient Outreach (AM [facility]) EDISON ALBARRAN ([id number]) 1945 [facility] Date Time Provider Department 03/10/24 [place]OPE[place] [facility] [place] visit today, we recorded the following information about you: Leno Lopez RN 03/10/2024 9:53 AM Signed [facility] Telephonic Outreach Provider Action/FYI #2 attempt to contact patient. Contacted for: Routine Telephonic Outreach Contact made with patient: No, unable to leave message. Will reattempt call Leno Lopez RN March 10, 2024 9:53 AM Allergies As of Date: 03/10/2024 Noted Allergy Reaction BACTRIM (SULFAMETHOXAZOLE-TRIMETH* 015 14 - Other: See Comments Comments: Unknown. CEPHALEXIN 11/22/2014 14 - Other: See Comments Comments: Unknown. CITALOPRAM 01/05/2020 7 - Swelling Comments: Throat swelled CYMBALTA (DULOXETINE) 01/05/2020 14 - Other: See Comments Comments: Made her feel groggy. Date Reviewed: 11/26/2023 Reviewed by: Phyllis Lea RN - Fully Assessed Reason for Visit: CDM [Other] Cmt: Telephonic Outreach Prescriptions as of 03/10/2024 - atorvastatin (LIPITOR) 40 mg tablet Take 1 tablet by mouth daily at bedtime. For cholesterol. - FLUoxetine (PROZAC) 40 mg capsule Take 1 capsule by mouth once daily. - potassium chloride SR (MICRO-K) 10 mEq CR capsule Take 2 capsules by mouth once daily. - QUEtiapine (SEROQUEL) 25 mg tablet take 1/2 tablet by mouth at bedtime - donepezil (ARICEPT) 5 mg tablet Take 1 tablet by mouth daily with breakfast. - gabapentin (NEURONTIN) 300 mg capsule Take 1 capsule by mouth daily at bedtime for 180 days. - mirabegron (MYRBETRIQ) 50 mg Tb24 Take 1 tablet by mouth once daily. - cyanocobalamin (VITAMIN B-12) 500 mcg tablet Take 1 tablet by mouth once daily. - levothyroxine (SYNTHROID) 50 mcg tablet Take 1 tablet by mouth daily before breakfast. Mon-Sat and none on Saturday, Saturday - omeprazole (PRILOSEC) 40 mg capsule Take 1 capsule by mouth two times a day. Take 30-60 minutes before breakfast and dinner on an empty stomach. - WALKER ROLLATOR SEAT WITH 6 WHEELS - RED Any color is fine and with a basket if available. Dx: Z91.81, M54.40, R20.8, M46.062 and R26.81 - cyclobenzaprine (FLEXERIL) 10 mg tablet Take 1 tablet by mouth every 8 hours as needed for muscle spasm (or pain). - wheat dextrin (BENEFIBER HEALTHY SHAPE) 5 gram/7.4 gram powd Take 2 teaspoonsful by mouth once daily. - amino acids (AMINO ACID ORAL) Take 3 g by mouth once daily. Peptide powder - VITAMIN E ACETATE ORAL Take 10 mg by mouth once daily. - ascorbic acid (VITAMIN C ORAL) Take 90 mg by mouth once daily. - aspirin, enteric coated (ADULT LOW DOSE ASPIRIN) 81 mg EC tablet Take 1 tablet by mouth once daily. Facility-Administered Medications as of 03/10/2024 - menthol-cetylpyridinium 1 Lozenge (CEPACOL LOZENGES) Problem List As Of Date 03/10/2024 Noted Resolved Osteoporosis [M81.0] 05/26/2015 Essential hypertension [I10] 2015 Mixed hyperlipidemia [E78.2] 2015 Hypothyroidism (acquired) [E03.9] 2015 Smoker [F17.200] 2015 Pain in joint, multiple sites [M25.50] 12/07/2015 Colon cancer screening [Z12.11] 12/07/2015 09/18/2019 Elevated fasting blood sugar [R73.01] 12/07/2015 09/18/2019 Hematuria [R31.9] 12/14/2015 09/18/2019 Bilateral carotid artery disease (HCC) [I77.9] 12/20/2015 09/18/2019 Decreased sensation of lower extremity [R20.8] 01/04/2016 Spinal stenosis, lumbar region, with neurogenic*01/23/2016 Urgency of urination [R39.15] 06/13/2016 Well adult exam [Z00.00] 12/26/2016 09/18/2019 Chronic bilateral low back pain with sciatica [*12/26/2016 Pain in both hands [M79.641, M79.642] 12/26/2016 09/18/2019 Encounter for screening mammogram for breast ca*12/26/2017 09/18/2019 Medicare annual wellness visit, subsequent [Z00*12/26/2017 Recurrent major depressive disorder, in remissi*07/01/2018 Medication management [Z79.899] 12/31/2018 Bilateral carotid artery stenosis [I65.23] 12/20/2015 Hematuria [R31.9] 12/14/2015 Moderate aortic insufficiency [I35.1] 01/19/2020 Agitation [R45.1] 02/02/2020 Lymphocytic colitis [K52.832] 05/16/2020 Sinus bradycardia [R00.1] 12/21/2020 Protein deficiency (HCC) [E46] 01/24/2021 09/20/2022 Essential tremor [G25.0] 09/18/2021 Living will on file [[id number]] 03/21/2022 Advance directive discussed with patient [Z71.8*03/21/2022 Stage 3a chronic kidney disease (HCC) [N18.31] 09/20/2022 Type 2 diabetes mellitus with stage 3a chronic *09/20/2022 Diabetic eye exam (HCC) [Z01.00, E11.9] 09/24/2022 Dementia without behavioral disturbance (HCC) [*12/20/2022 Hypokalemia [E87.6] 03/02/2023 Failure to thrive in adult [R62.7] 03/02/2023 Unsteady gait [R26.81] 03/06/2023 At risk for falling [Z91.81] 04/12/2023 Gastroesophageal reflux disease without esophag*09/25/2023 Primary insomnia [F51.01] 09/25/2023 (more content not included)... [facility] 03-09-2024 Note HNO ID: [id number] Author: LENO LOPEZ RN Service: ? Author Type: Registered Nurse Type: Progress Notes Filed: 03/09/2024 11:40 Note Text: [facility] Telephonic Outreach Provider Action/FYI #1 attempt to contact patient. Contacted for: Routine Telephonic Outreach Contact made with patient: No, unable to leave message. Will reattempt call Leno Lopez RN March 09, 2024 11:39 AM [facility] 03-09-2024 History of Present illness Narrative [facility] Telephonic Outreach Provider Action/FYI #1 attempt to contact patient. Contacted for: Routine Telephonic Outreach Contact made with patient: No, unable to leave message. Will reattempt call Leno Lopez RN March 09, 2024 11:39 AM documented in this encounter [facility] 03-09-2024 Note Patient Outreach (AM [facility]) AVISEDISON ([id number]) 1945 [address] [facility] Date Time Provider Department 03/09/24 LENO LOPEZG During your visit today, we recorded the following information about you: Leno Lopez, RN 03/09/2024 11:40 AM Signed [facility] Telephonic Outreach Provider Action/FYI #1 attempt to contact patient. Contacted for: Routine Telephonic Outreach Contact made with patient: No, unable to leave message. Will reattempt call Leno Lopez RN March 09, 2024 11:39 AM Allergies As of Date: 03/09/2024 Noted Allergy Reaction BACTRIM (SULFAMETHOXAZOLE-TRIMETH* 015 14 - Other: See Comments Comments: Unknown. CEPHALEXIN 11/22/2014 14 - Other: See Comments Comments: Unknown. CITALOPRAM 01/05/2020 7 - Swelling Comments: Throat swelled CYMBALTA (DULOXETINE) 01/05/2020 14 - Other: See Comments Comments: Made her feel groggy. Date Reviewed: 11/26/2023 Reviewed by: Phyllis Lea, LILLI - Fully Assessed Reason for Visit: CDM [Other] Cmt: Telephonic Outreach Prescriptions as of 03/09/2024 - atorvastatin (LIPITOR) 40 mg tablet Take 1 tablet by mouth daily at bedtime. For cholesterol. - FLUoxetine (PROZAC) 40 mg capsule Take 1 capsule by mouth once daily. - potassium chloride SR (MICRO-K) 10 mEq CR capsule Take 2 capsules by mouth once daily. - QUEtiapine (SEROQUEL) 25 mg tablet take 1/2 tablet by mouth at bedtime - donepezil (ARICEPT) 5 mg tablet Take 1 tablet by mouth daily with breakfast. - gabapentin (NEURONTIN) 300 mg capsule Take 1 capsule by mouth daily at bedtime for 180 days. - mirabegron (MYRBETRIQ) 50 mg Tb24 Take 1 tablet by mouth once daily. - cyanocobalamin (VITAMIN B-12) 500 mcg tablet Take 1 tablet by mouth once daily. - levothyroxine (SYNTHROID) 50 mcg tablet Take 1 tablet by mouth daily before breakfast. Mon-Sat and none on Saturday, Saturday - omeprazole (PRILOSEC) 40 mg capsule Take 1 capsule by mouth two times a day. Take 30-60 minutes before breakfast and dinner on an empty stomach. - WALKER ROLLATOR SEAT WITH 6 WHEELS - RED Any color is fine and with a basket if available. Dx: Z91.81, M54.40, R20.8, M46.062 and R26.81 - cyclobenzaprine (FLEXERIL) 10 mg tablet Take 1 tablet by mouth every 8 hours as needed for muscle spasm (or pain). - wheat dextrin (BENEFIBER HEALTHY SHAPE) 5 gram/7.4 gram powd Take 2 teaspoonsful by mouth once daily. - amino acids (AMINO ACID ORAL) Take 3 g by mouth once daily. Peptide powder - VITAMIN E ACETATE ORAL Take 10 mg by mouth once daily. - ascorbic acid (VITAMIN C ORAL) Take 90 mg by mouth once daily. - aspirin, enteric coated (ADULT LOW DOSE ASPIRIN) 81 mg EC tablet Take 1 tablet by mouth once daily. Facility-Administered Medications as of 03/09/2024 - menthol-cetylpyridinium 1 Lozenge (CEPACOL LOZENGES) Problem List As Of Date 03/09/2024 Noted Resolved Osteoporosis [M81.0] 05/26/2015 Essential hypertension [I10] 2015 Mixed hyperlipidemia [E78.2] 2015 Hypothyroidism (acquired) [E03.9] 2015 Smoker [F17.200] 2015 Pain in joint, multiple sites [M25.50] 12/07/2015 Colon cancer screening [Z12.11] 12/07/2015 09/18/2019 Elevated fasting blood sugar [R73.01] 12/07/2015 09/18/2019 Hematuria [R31.9] 12/14/2015 09/18/2019 Bilateral carotid artery disease (HCC) [I77.9] 12/20/2015 09/18/2019 Decreased sensation of lower extremity [R20.8] 01/04/2016 Spinal stenosis, lumbar region, with neurogenic*01/23/2016 Urgency of urination [R39.15] 06/13/2016 Well adult exam [Z00.00] 12/26/2016 09/18/2019 Chronic bilateral low back pain with sciatica [*12/26/2016 Pain in both hands [M79.641, M79.642] 12/26/2016 09/18/2019 Encounter for screening mammogram for breast ca*12/26/2017 09/18/2019 Medicare annual wellness visit, subsequent [Z00*12/26/2017 Recurrent major depressive disorder, in remissi*07/01/2018 Medication management [Z79.899] 12/31/2018 Bilateral carotid artery stenosis [I65.23] 12/20/2015 Hematuria [R31.9] 12/14/2015 Moderate aortic insufficiency [I35.1] 01/19/2020 Agitation [R45.1] 02/02/2020 Lymphocytic colitis [K52.832] 05/16/2020 Sinus bradycardia [R00.1] 12/21/2020 Protein deficiency (HCC) [E46] 01/24/2021 09/20/2022 Essential tremor [G25.0] 09/18/2021 Living will on file [[id number]] 03/21/2022 Advance directive discussed with patient [Z71.8*03/21/2022 Stage 3a chronic kidney disease (HCC) [N18.31] 09/20/2022 Type 2 diabetes mellitus with stage 3a chronic *09/20/2022 Diabetic eye exam (HCC) [Z01.00, E11.9] 09/24/2022 Dementia without behavioral disturbance (HCC) [*12/20/2022 Hypokalemia [E87.6] 03/02/2023 Failure to thrive in adult [R62.7] 03/02/2023 Unsteady gait [R26.81] 03/06/2023 At risk for falling [Z91.81] 04/12/2023 Gastroesophageal reflux disease without esophag*09/25/2023 Primary insomnia [F51.01] 09/25/2023 Encounter Number: [id number] (more content not included)... [facility] 02-17-2024 Telephone encounter Note Phone call placed spoke to January (listed on patients chart) PCP placed consultation to cover Dementia, Insomnia currently scheduled with Dontae Do (sleep provider), advised additional appointment needs to be scheduled with Sidra Alexander to address Dementia, Dr. De La Cruz scheduled out until Fall. Dementia without behavioral disturbance (HCC) [F03.90] Primary insomnia [F51.01] January advised she is unsure if patient has seen another provider for Neurology in the past, agreeable to schedule with Saray Buckley To address Dx Dementia, appt scheduled in [place] location. Erik Ponce LPN [facility] 02-17-2024 Miscellaneous Notes Phone call placed spoke to January (listed on patients chart) PCP placed consultation to cover Dementia, Insomnia currently scheduled with Dontae Do (sleep provider), advised additional appointment needs to be scheduled with Sidra Alexander to address Dementia, Dr. De La Cruz scheduled out until Fall. Dementia without behavioral disturbance (HCC) [F03.90] Primary insomnia [F51.01] January advised she is unsure if patient has seen another provider for Neurology in the past, agreeable to schedule with Saray QJovita To address Dx Dementia, appt scheduled in [place] location. Erik Ponce LPN documented in this encounter [facility] 02-11-2024 Note HNO ID: [id number] Author: LENO LOPEZ RN Service: ? Author Type: Registered Nurse Type: Progress Notes Filed: 02/11/2024 11:11 Note Text: [facility] Telephonic Outreach Provider Action/FYI #2 attempt to contact patient for a one week outreach per her request. Contacted for: Routine Telephonic Outreach/check in regarding her foot. Contact made with patient: No, unable to leave message. Will reattempt call Leno Lopez RN February 11, 2024 11:11 AM [facility] 02-11-2024 History of Present illness Narrative [facility] Telephonic Outreach Provider Action/FYI #2 attempt to contact patient for a one week outreach per her request. Contacted for: Routine Telephonic Outreach/check in regarding her foot. Contact made with patient: No, unable to leave message. Will reattempt call Leno Lopez RN February 11, 2024 11:11 AM documented in this encounter [facility] 02-11-2024 Note Patient Outreach (AM [facility]) EDISON ALBARRAN ([id number]) 1945 [facility] Date Time Provider Department 02/11/24 [facility] During your visit today, we recorded the following information about you: Leno Lopez RN 02/11/2024 11:11 AM Signed [facility] Telephonic Outreach Provider Action/FYI #2 attempt to contact patient for a one week outreach per her request. Contacted for: Routine Telephonic Outreach/check in regarding her foot. Contact made with patient: No, unable to leave message. Will reattempt call Leno Lopez RN February 11, 2024 11:11 AM Allergies As of Date: 02/11/2024 Noted Allergy Reaction BACTRIM (SULFAMETHOXAZOLE-TRIMETH* 015 14 - Other: See Comments Comments: Unknown. CEPHALEXIN 11/22/2014 14 - Other: See Comments Comments: Unknown. CITALOPRAM 01/05/2020 7 - Swelling Comments: Throat swelled CYMBALTA (DULOXETINE) 01/05/2020 14 - Other: See Comments Comments: Made her feel groggy. Date Reviewed: 11/26/2023 Reviewed by: Phyllis Lea, LILLI - Fully Assessed Reason for Visit: CDM [Other] Cmt: Telephonic Outreach Prescriptions as of 02/11/2024 - atorvastatin (LIPITOR) 40 mg tablet Take 1 tablet by mouth daily at bedtime. For cholesterol. - FLUoxetine (PROZAC) 40 mg capsule Take 1 capsule by mouth once daily. - potassium chloride SR (MICRO-K) 10 mEq CR capsule Take 2 capsules by mouth once daily. - QUEtiapine (SEROQUEL) 25 mg tablet take 1/2 tablet by mouth at bedtime - donepezil (ARICEPT) 5 mg tablet Take 1 tablet by mouth daily with breakfast. - gabapentin (NEURONTIN) 300 mg capsule Take 1 capsule by mouth daily at bedtime for 180 days. - mirabegron (MYRBETRIQ) 50 mg Tb24 Take 1 tablet by mouth once daily. - cyanocobalamin (VITAMIN B-12) 500 mcg tablet Take 1 tablet by mouth once daily. - levothyroxine (SYNTHROID) 50 mcg tablet Take 1 tablet by mouth daily before breakfast. Mon-Sat and none on Saturday, Saturday - omeprazole (PRILOSEC) 40 mg capsule Take 1 capsule by mouth two times a day. Take 30-60 minutes before breakfast and dinner on an empty stomach. - WALKER ROLLATOR SEAT WITH 6 WHEELS - RED Any color is fine and with a basket if available. Dx: Z91.81, M54.40, R20.8, M46.062 and R26.81 - cyclobenzaprine (FLEXERIL) 10 mg tablet Take 1 tablet by mouth every 8 hours as needed for muscle spasm (or pain). - wheat dextrin (BENEFIBER HEALTHY SHAPE) 5 gram/7.4 gram powd Take 2 teaspoonsful by mouth once daily. - amino acids (AMINO ACID ORAL) Take 3 g by mouth once daily. Peptide powder - VITAMIN E ACETATE ORAL Take 10 mg by mouth once daily. - ascorbic acid (VITAMIN C ORAL) Take 90 mg by mouth once daily. - aspirin, enteric coated (ADULT LOW DOSE ASPIRIN) 81 mg EC tablet Take 1 tablet by mouth once daily. Facility-Administered Medications as of 02/11/2024 - menthol-cetylpyridinium 1 Lozenge (CEPACOL LOZENGES) Problem List As Of Date 02/11/2024 Noted Resolved Osteoporosis [M81.0] 05/26/2015 Essential hypertension [I10] 2015 Mixed hyperlipidemia [E78.2] 2015 Hypothyroidism (acquired) [E03.9] 2015 Smoker [F17.200] 2015 Pain in joint, multiple sites [M25.50] 12/07/2015 Colon cancer screening [Z12.11] 12/07/2015 09/18/2019 Elevated fasting blood sugar [R73.01] 12/07/2015 09/18/2019 Hematuria [R31.9] 12/14/2015 09/18/2019 Bilateral carotid artery disease (HCC) [I77.9] 12/20/2015 09/18/2019 Decreased sensation of lower extremity [R20.8] 01/04/2016 Spinal stenosis, lumbar region, with neurogenic*01/23/2016 Urgency of urination [R39.15] 06/13/2016 Well adult exam [Z00.00] 12/26/2016 09/18/2019 Chronic bilateral low back pain with sciatica [*12/26/2016 Pain in both hands [M79.641, M79.642] 12/26/2016 09/18/2019 Encounter for screening mammogram for breast ca*12/26/2017 09/18/2019 Medicare annual wellness visit, subsequent [Z00*12/26/2017 Recurrent major depressive disorder, in remissi*07/01/2018 Medication management [Z79.899] 12/31/2018 Bilateral carotid artery stenosis [I65.23] 12/20/2015 Hematuria [R31.9] 12/14/2015 Moderate aortic insufficiency [I35.1] 01/19/2020 Agitation [R45.1] 02/02/2020 Lymphocytic colitis [K52.832] 05/16/2020 Sinus bradycardia [R00.1] 12/21/2020 Protein deficiency (HCC) [E46] 01/24/2021 09/20/2022 Essential tremor [G25.0] 09/18/2021 Living will on file [[id number]] 03/21/2022 Advance directive discussed with patient [Z71.8*03/21/2022 Stage 3a chronic kidney disease (HCC) [N18.31] 09/20/2022 Type 2 diabetes mellitus with stage 3a chronic *09/20/2022 Diabetic eye exam (HCC) [Z01.00, E11.9] 09/24/2022 Dementia without behavioral disturbance (HCC) [*12/20/2022 Hypokalemia [E87.6] 03/02/2023 Failure to thrive in adult [R62.7] 03/02/2023 Unsteady gait [R26.81] 03/06/2023 At risk for falling [Z91.81] 04/12/2023 Gastroesophageal reflux disease without esophag*09/25 (more content not included)... [facility] 02-10-2024 Note HNO ID: [id number] Author: LENO LOPEZ, RN Service: ? Author Type: Registered Nurse Type: Progress Notes Filed: 02/10/2024 11:20 Note Text: CD[facility] Telephonic Outreach Provider Action/FYI One week follow up attempt. Contacted for: Routine Telephonic Outreach Contact made with patient: No, unable to leave message. Will reattempt call Leno Lopez RN February 10, 2024 11:20 AM [facility] 02-10-2024 History of Present illness Narrative CDM Telephonic Outreach Provider Action/FYI One week follow up attempt. Contacted for: Routine Telephonic Outreach Contact made with patient: No, unable to leave message. Will reattempt call Leno Lopez RN February 10, 2024 11:20 AM documented in this encounter [facility] 02-10-2024 Note Patient Outreach (AM [facility]) EDISON ALBARRAN ([id number]) 1945 [facility] Date Time Provider Department 02/10/24 LENO LOPEZ During your visit today, we recorded the following information about you: Leno Lopez, RN 02/10/2024 11:20 AM Signed CD Telephonic Outreach Provider Action/FYI One week follow up attempt. Contacted for: Routine Telephonic Outreach Contact made with patient: No, unable to leave message. Will reattempt call Leno Lopez RN February 10, 2024 11:20 AM Allergies As of Date: 02/10/2024 Noted Allergy Reaction BACTRIM (SULFAMETHOXAZOLE-TRIMETH* 015 14 - Other: See Comments Comments: Unknown. CEPHALEXIN 11/22/2014 14 - Other: See Comments Comments: Unknown. CITALOPRAM 01/05/2020 7 - Swelling Comments: Throat swelled CYMBALTA (DULOXETINE) 01/05/2020 14 - Other: See Comments Comments: Made her feel groggy. Date Reviewed: 11/26/2023 Reviewed by: Phyllis Lea RN - Fully Assessed Reason for Visit: CDM [Other] Cmt: Telephonic Outreach Prescriptions as of 02/10/2024 - atorvastatin (LIPITOR) 40 mg tablet Take 1 tablet by mouth daily at bedtime. For cholesterol. - FLUoxetine (PROZAC) 40 mg capsule Take 1 capsule by mouth once daily. - potassium chloride SR (MICRO-K) 10 mEq CR capsule Take 2 capsules by mouth once daily. - QUEtiapine (SEROQUEL) 25 mg tablet take 1/2 tablet by mouth at bedtime - donepezil (ARICEPT) 5 mg tablet Take 1 tablet by mouth daily with breakfast. - gabapentin (NEURONTIN) 300 mg capsule Take 1 capsule by mouth daily at bedtime for 180 days. - mirabegron (MYRBETRIQ) 50 mg Tb24 Take 1 tablet by mouth once daily. - cyanocobalamin (VITAMIN B-12) 500 mcg tablet Take 1 tablet by mouth once daily. - levothyroxine (SYNTHROID) 50 mcg tablet Take 1 tablet by mouth daily before breakfast. Mon-Fri and none on Saturday, Saturday - omeprazole (PRILOSEC) 40 mg capsule Take 1 capsule by mouth two times a day. Take 30-60 minutes before breakfast and dinner on an empty stomach. - WALKER ROLLATOR SEAT WITH 6 WHEELS - RED Any color is fine and with a basket if available. Dx: Z91.81, M54.40, R20.8, M46.062 and R26.81 - cyclobenzaprine (FLEXERIL) 10 mg tablet Take 1 tablet by mouth every 8 hours as needed for muscle spasm (or pain). - wheat dextrin (BENEFIBER HEALTHY SHAPE) 5 gram/7.4 gram powd Take 2 teaspoonsful by mouth once daily. - amino acids (AMINO ACID ORAL) Take 3 g by mouth once daily. Peptide powder - VITAMIN E ACETATE ORAL Take 10 mg by mouth once daily. - ascorbic acid (VITAMIN C ORAL) Take 90 mg by mouth once daily. - aspirin, enteric coated (ADULT LOW DOSE ASPIRIN) 81 mg EC tablet Take 1 tablet by mouth once daily. Facility-Administered Medications as of 02/10/2024 - menthol-cetylpyridinium 1 Lozenge (CEPACOL LOZENGES) Problem List As Of Date 02/10/2024 Noted Resolved Osteoporosis [M81.0] 05/26/2015 Essential hypertension [I10] 2015 Mixed hyperlipidemia [E78.2] 2015 Hypothyroidism (acquired) [E03.9] 2015 Smoker [F17.200] 2015 Pain in joint, multiple sites [M25.50] 12/07/2015 Colon cancer screening [Z12.11] 12/07/2015 09/18/2019 Elevated fasting blood sugar [R73.01] 12/07/2015 09/18/2019 Hematuria [R31.9] 12/14/2015 09/18/2019 Bilateral carotid artery disease (HCC) [I77.9] 12/20/2015 09/18/2019 Decreased sensation of lower extremity [R20.8] 01/04/2016 Spinal stenosis, lumbar region, with neurogenic*01/23/2016 Urgency of urination [R39.15] 06/13/2016 Well adult exam [Z00.00] 12/26/2016 09/18/2019 Chronic bilateral low back pain with sciatica [*12/26/2016 Pain in both hands [M79.641, M79.642] 12/26/2016 09/18/2019 Encounter for screening mammogram for breast ca*12/26/2017 09/18/2019 Medicare annual wellness visit, subsequent [Z00*12/26/2017 Recurrent major depressive disorder, in remissi*07/01/2018 Medication management [Z79.899] 12/31/2018 Bilateral carotid artery stenosis [I65.23] 12/20/2015 Hematuria [R31.9] 12/14/2015 Moderate aortic insufficiency [I35.1] 01/19/2020 Agitation [R45.1] 02/02/2020 Lymphocytic colitis [K52.832] 05/16/2020 Sinus bradycardia [R00.1] 12/21/2020 Protein deficiency (HCC) [E46] 01/24/2021 09/20/2022 Essential tremor [G25.0] 09/18/2021 Living will on file [[id number]] 03/21/2022 Advance directive discussed with patient [Z71.8*03/21/2022 Stage 3a chronic kidney disease (HCC) [N18.31] 09/20/2022 Type 2 diabetes mellitus with stage 3a chronic *09/20/2022 Diabetic eye exam (HCC) [Z01.00, E11.9] 09/24/2022 Dementia without behavioral disturbance (HCC) [*12/20/2022 Hypokalemia [E87.6] 03/02/2023 Failure to thrive in adult [R62.7] 03/02/2023 Unsteady gait [R26.81] 03/06/2023 At risk for falling [Z91.81] 04/12/2023 Gastroesophageal reflux disease without esophag*09/25/2023 Primary insomnia [F51.01] 09/25/2023 (more content not included)... [facility] 02-03-2024 Note HNO ID: [id number] Author: LENO LOPEZ RN Service: ? Author Type: Registered Nurse Type: Progress Notes Filed: 02/03/2024 11:13 Note Text: CDM Telephonic Outreach Provider Action/FYI Goal updated. Contacted for: Routine Telephonic Outreach Contact made with patient: Yes Patient identified by name and date of . Discussed care with patient. Patient was seen at the [place] ED on 01/31/24 for right foot pain and swelling. Patient reports the right foot swelling and bruising remains. Patient is using dominick wrap and elevation. Patient does not feel she needs a PCP follow up appointment at this time. She would like to give it a week. Agreed to outreach next week Saturday to see if improvement or if follow up appointment needed. No new concerns or complaints related to chronic disease management. Are you experiencing any new or worsening symptoms you need to talk about today? Yes Based on body mechanic apprentice, the following disposition is advised: No symptoms or symptoms present, not severe. Routed to: No Action Needed LUZ ELENA Education Provided this Outreach: No Leno Lopez RN February 03, 2024 11:10 AM [facility] 02-03-2024 History of Present illness Narrative [facility] Telephonic Outreach Provider Action/FYI Goal updated. Contacted for: Routine Telephonic Outreach Contact made with patient: Yes Patient identified by name and date of . Discussed care with patient. Patient was seen at the [facility] on 01/31/24 for right foot pain and swelling. Patient reports the right foot swelling and bruising remains. Patient is using dominick wrap and elevation. Patient does not feel she needs a PCP follow up appointment at this time. She would like to give it a week. Agreed to outreach next week Saturday to see if improvement or if follow up appointment needed. No new concerns or complaints related to chronic disease management. Are you experiencing any new or worsening symptoms you need to talk about today? Yes Based on body mechanic apprentice, the following disposition is advised: No symptoms or symptoms present, not severe. Routed to: No Action Needed LUZ ELENA Education Provided this Outreach: No Leno Lopez RN February 03, 2024 11:10 AM documented in this encounter [facility] 02-03-2024 Note HNO ID: [id number] Author: BRENDA SANABRIA MA Service: ? Author Type: Coin Machine Operator Type: Progress Notes Filed: 02/06/2024 12:35 Note Text: Scan on 01/31/2024 6:34 PM by ProviderAngel PA-C: Consultation - Emergency Medicine Brenda Sanabria MA [facility] 02-03-2024 History of Present illness Narrative Scan on 01/31/2024 6:34 PM by Angel Ayala PA-C: Consultation - Emergency Medicine Brenda Sanabria MA documented in this encounter [facility] 02-03-2024 Note Patient Outreach (AM [facility]) AVISEDISON ([id number]) 1945 [facility] Date Time Provider Department 02/03/24 LENO LOPEZ [facility] During your visit today, we recorded the following information about you: Leno Lopez, RN 02/03/2024 11:13 AM Signed CDM Telephonic Outreach Provider Action/FYI Goal updated. Contacted for: Routine Telephonic Outreach Contact made with patient: Yes Patient identified by name and date of . Discussed care with patient. Patient was seen at the [facility] on 01/31/24 for right foot pain and swelling. Patient reports the right foot swelling and bruising remains. Patient is using dominick wrap and elevation. Patient does not feel she needs a PCP follow up appointment at this time. She would like to give it a week. Agreed to outreach next week Saturday to see if improvement or if follow up appointment needed. No new concerns or complaints related to chronic disease management. Are you experiencing any new or worsening symptoms you need to talk about today? Yes Based on body mechanic apprentice, the following disposition is advised: No symptoms or symptoms present, not severe. Routed to: No Action Needed LUZ ELENA Education Provided this Outreach: No Leno Lopez RN February 03, 2024 11:10 AM Allergies As of Date: 02/03/2024 Noted Allergy Reaction BACTRIM (SULFAMETHOXAZOLE-TRIMETH* 015 14 - Other: See Comments Comments: Unknown. CEPHALEXIN 11/22/2014 14 - Other: See Comments Comments: Unknown. CITALOPRAM 01/05/2020 7 - Swelling Comments: Throat swelled CYMBALTA (DULOXETINE) 01/05/2020 14 - Other: See Comments Comments: Made her feel groggy. Date Reviewed: 11/26/2023 Reviewed by: Phyllis Lea RN - Fully Assessed Reason for Visit: CDM [Other] Cmt: Telephonic Outreach Prescriptions as of 02/03/2024 - atorvastatin (LIPITOR) 40 mg tablet Take 1 tablet by mouth daily at bedtime. For cholesterol. - FLUoxetine (PROZAC) 40 mg capsule Take 1 capsule by mouth once daily. - potassium chloride SR (MICRO-K) 10 mEq CR capsule Take 2 capsules by mouth once daily. - QUEtiapine (SEROQUEL) 25 mg tablet take 1/2 tablet by mouth at bedtime - donepezil (ARICEPT) 5 mg tablet Take 1 tablet by mouth daily with breakfast. - gabapentin (NEURONTIN) 300 mg capsule Take 1 capsule by mouth daily at bedtime for 180 days. - mirabegron (MYRBETRIQ) 50 mg Tb24 Take 1 tablet by mouth once daily. - cyanocobalamin (VITAMIN B-12) 500 mcg tablet Take 1 tablet by mouth once daily. - levothyroxine (SYNTHROID) 50 mcg tablet Take 1 tablet by mouth daily before breakfast. Sat-Sat and none on Saturday, Saturday - omeprazole (PRILOSEC) 40 mg capsule Take 1 capsule by mouth two times a day. Take 30-60 minutes before breakfast and dinner on an empty stomach. - WALKER ROLLATOR SEAT WITH 6 WHEELS - RED Any color is fine and with a basket if available. Dx: Z91.81, M54.40, R20.8, M46.062 and R26.81 - cyclobenzaprine (FLEXERIL) 10 mg tablet Take 1 tablet by mouth every 8 hours as needed for muscle spasm (or pain). - wheat dextrin (BENEFIBER HEALTHY SHAPE) 5 gram/7.4 gram powd Take 2 teaspoonsful by mouth once daily. - amino acids (AMINO ACID ORAL) Take 3 g by mouth once daily. Peptide powder - VITAMIN E ACETATE ORAL Take 10 mg by mouth once daily. - ascorbic acid (VITAMIN C ORAL) Take 90 mg by mouth once daily. - aspirin, enteric coated (ADULT LOW DOSE ASPIRIN) 81 mg EC tablet Take 1 tablet by mouth once daily. Facility-Administered Medications as of 02/03/2024 - menthol-cetylpyridinium 1 Lozenge (CEPACOL LOZENGES) Problem List As Of Date 02/03/2024 Noted Resolved Osteoporosis [M81.0] 05/26/2015 Essential hypertension [I10] 2015 Mixed hyperlipidemia [E78.2] 2015 Hypothyroidism (acquired) [E03.9] 2015 Smoker [F17.200] 2015 Pain in joint, multiple sites [M25.50] 12/07/2015 Colon cancer screening [Z12.11] 12/07/2015 09/18/2019 Elevated fasting blood sugar [R73.01] 12/07/2015 09/18/2019 Hematuria [R31.9] 12/14/2015 09/18/2019 Bilateral carotid artery disease (HCC) [I77.9] 12/20/2015 09/18/2019 Decreased sensation of lower extremity [R20.8] 01/04/2016 Spinal stenosis, lumbar region, with neurogenic*01/23/2016 Urgency of urination [R39.15] 06/13/2016 Well adult exam [Z00.00] 12/26/2016 09/18/2019 Chronic bilateral low back pain with sciatica [*12/26/2016 Pain in both hands [M79.641, M79.642] 12/26/2016 09/18/2019 Encounter for screening mammogram for breast ca*12/26/2017 09/18/2019 Medicare annual wellness visit, subsequent [Z00*12/26/2017 Recurrent major depressive disorder, in remissi*07/01/2018 Medication management [Z79.899] 12/31/2018 Bilateral carotid artery stenosis [I65.23] 12/20/2015 Hematuria [R31.9] 12/14/2015 Moderate aortic insufficiency [I35.1] 01/19/2020 Agitation [R45.1] 02/02/2020 Lymphocytic colitis [K52.832] 0 (more content not included)... [facility] 01-31-2024 Telephone encounter Note Patient call in for left foot turning black. Nurse Triage assessment completed with protocol recommending for disposition of Go to ED now. Care advice reviewed with patient, patient stated understanding. Reason for Disposition Wound looks infected Black (necrotic), dark purple, or blisters develop in area of wound Answer Assessment - Initial Assessment Questions Reason for Disposition Wound looks infected Answer Assessment - Initial Assessment Questions 1. MECHANISM: Patient denies injury. Patient states that a couple days ago she had noticed that her heel to big toe was bright red. Patient now notices a dark black line going through foot. Patient states that her foot is now black 2. ONSET: No injury, noticed redness a couple days ago 3. LOCATION: Left Foot 4. APPEARANCE of INJURY: States that foot is turning black; Patient does not notice that the foot is cool. States that foot is same temperature as right foot. 5. WEIGHT-BEARING: Can bear weight 6. SIZE: Denies open areas. 7. PAIN: Denies Pain 8. TETANUS: 05/29/2018 9. OTHER SYMPTOMS: Denies other symptoms 10. FEVER: Patient states that she has been hot where she is normally cold. Protocols used: Ankle and Foot [id number], Wound Infection [id number] [facility] 01-31-2024 Miscellaneous Notes Patient call in for left foot turning black. Nurse Triage assessment completed with protocol recommending for disposition of Go to ED now. Care advice reviewed with patient, patient stated understanding. Reason for Disposition Wound looks infected Black (necrotic), dark purple, or blisters develop in area of wound Answer Assessment - Initial Assessment Questions Reason for Disposition Wound looks infected Answer Assessment - Initial Assessment Questions 1. MECHANISM: Patient denies injury. Patient states that a couple days ago she had noticed that her heel to big toe was bright red. Patient now notices a dark black line going through foot. Patient states that her foot is now black 2. ONSET: No injury, noticed redness a couple days ago 3. LOCATION: Left Foot 4. APPEARANCE of INJURY: States that foot is turning black; Patient does not notice that the foot is cool. States that foot is same temperature as right foot. 5. WEIGHT-BEARING: Can bear weight 6. SIZE: Denies open areas. 7. PAIN: Denies Pain 8. TETANUS: 05/29/2018 9. OTHER SYMPTOMS: Denies other symptoms 10. FEVER: Patient states that she has been hot where she is normally cold. Protocols used: Ankle and Foot Mpapdx-FCABM-MA, Wound Infection Rtvhjrjcv-MQWTS-TU documented in this encounter [facility] 01-29-2024 Telephone encounter Note Patient has been identified by name and date of : Yes, Provider Date Time Patient phones for refill(s): Requested Prescriptions Pending Prescriptions Disp Refills atorvastatin (LIPITOR) 40 mg tablet 90 tablet 1 Sig: Take 1 tablet by mouth daily at bedtime. For cholesterol. FLUoxetine (PROZAC) 40 mg capsule 30 capsule 5 Sig: Take 1 capsule by mouth once daily. potassium chloride SR (MICRO-K) 10 mEq CR capsule 60 capsule 5 Sig: Take 2 capsules by mouth once daily. Date of last office visit in primary care: 11/26/2023 Date of next office visit in primary care: 04/06/2024 Please advise. Thank you. Robyn Heredia RN. [facility] 01-29-2024 Miscellaneous Notes Patient has been identified by name and date of : Yes, Provider Date Time Patient phones for refill(s): Requested Prescriptions Pending Prescriptions Disp Refills atorvastatin (LIPITOR) 40 mg tablet 90 tablet 1 Sig: Take 1 tablet by mouth daily at bedtime. For cholesterol. FLUoxetine (PROZAC) 40 mg capsule 30 capsule 5 Sig: Take 1 capsule by mouth once daily. potassium chloride SR (MICRO-K) 10 mEq CR capsule 60 capsule 5 Sig: Take 2 capsules by mouth once daily. Date of last office visit in primary care: 11/26/2023 Date of next office visit in primary care: 04/06/2024 Please advise. Thank you. Robyn Heredia RN. documented in this encounter [facility] 01-24-2024 Miscellaneous Notes The following approved medication requests have been transmitted electronically. Requested Prescriptions Signed Prescriptions Disp Refills QUEtiapine (SEROQUEL) 25 mg tablet 90 tablet 1 Sig: take 1/2 tablet by mouth at bedtime Authorizing Provider: AUBRIE DAVILA Ordering User: AMIRA QUAN PA-C documented in this encounter [facility] 01-08-2024 Note HNO ID: [id number] Author: LENO LOPEZ RN Service: ? Author Type: Registered Nurse Type: Progress Notes Filed: 01/08/2024 11:44 Note Text: [facility] Telephonic Outreach Provider Action/FYI Goal updated. Contacted for: Routine Telephonic Outreach Contact made with patient: Yes Patient identified by name and date of . Discussed care with patient Are you experiencing any new or worsening symptoms you need to talk about today? No Disease Specific Do you check your blood pressure at home? No Do you have new or worsening shortness of breath with activity? No Do you feel like you are dehydrated for any reason, including not being able to eat or drink normally, or having less urine/much darker urine than normal for you? No Do you check your daily weight at home? Yes, Have you noticed a sudden gain in weight greater than three pounds in a day or three pounds in a week? 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 Routed to: No Action Needed LUZ ELENA Education Provided this Outreach: No Leno Lopez RN January 08, 2024 11:42 AM [facility] 01-08-2024 History of Present illness Narrative [facility] Telephonic Outreach Provider Action/FYI Goal updated. Contacted for: Routine Telephonic Outreach Contact made with patient: Yes Patient identified by name and date of . Discussed care with patient Are you experiencing any new or worsening symptoms you need to talk about today? No Disease Specific Do you check your blood pressure at home? No Do you have new or worsening shortness of breath with activity? No Do you feel like you are dehydrated for any reason, including not being able to eat or drink normally, or having less urine/much darker urine than normal for you? No Do you check your daily weight at home? Yes, Have you noticed a sudden gain in weight greater than three pounds in a day or three pounds in a week? 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 Routed to: No Action Needed LUZ ELENA Education Provided this Outreach: No Leno Lopez RN January 08, 2024 11:42 AM documented in this encounter [facility] 01-08-2024 Note Patient Outreach (AM [facility]) EDISON ALBARRAN ([id number]) 1945 [facility] Date Time Provider Department 01/08/24 LENO LOPEZ [facility] During your visit today, we recorded the following information about you: Leno Lopez RN 01/08/2024 11:44 AM Signed [facility] Telephonic Outreach Provider Action/I Goal updated. Contacted for: Routine Telephonic Outreach Contact made with patient: Yes Patient identified by name and date of . Discussed care with patient Are you experiencing any new or worsening symptoms you need to talk about today? No Disease Specific Do you check your blood pressure at home? No Do you have new or worsening shortness of breath with activity? No Do you feel like you are dehydrated for any reason, including not being able to eat or drink normally, or having less urine/much darker urine than normal for you? No Do you check your daily weight at home? Yes, Have you noticed a sudden gain in weight greater than three pounds in a day or three pounds in a week? 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 Routed to: No Action Needed LUZ ELENA Education Provided this Outreach: No Leno Lopez RN January 08, 2024 11:42 AM Allergies As of Date: 01/08/2024 Noted Allergy Reaction BACTRIM (SULFAMETHOXAZOLE-TRIMETH* 015 14 - Other: See Comments Comments: Unknown. CEPHALEXIN 11/22/2014 14 - Other: See Comments Comments: Unknown. CITALOPRAM 01/05/2020 7 - Swelling Comments: Throat swelled CYMBALTA (DULOXETINE) 01/05/2020 14 - Other: See Comments Comments: Made her feel groggy. Date Reviewed: 11/26/2023 Reviewed by: Phyllis Lea RN - Fully Assessed Reason for Visit: CDM [Other] Cmt: Telephonic Outreach Prescriptions as of 01/08/2024 - donepezil (ARICEPT) 5 mg tablet Take 1 tablet by mouth daily with breakfast. - gabapentin (NEURONTIN) 300 mg capsule Take 1 capsule by mouth daily at bedtime for 180 days. - mirabegron (MYRBETRIQ) 50 mg Tb24 Take 1 tablet by mouth once daily. - cyanocobalamin (VITAMIN B-12) 500 mcg tablet Take 1 tablet by mouth once daily. - levothyroxine (SYNTHROID) 50 mcg tablet Take 1 tablet by mouth daily before breakfast. Mon-Sat and none on Saturday, Saturday - omeprazole (PRILOSEC) 40 mg capsule Take 1 capsule by mouth two times a day. Take 30-60 minutes before breakfast and dinner on an empty stomach. - atorvastatin (LIPITOR) 40 mg tablet Take 1 tablet by mouth daily at bedtime. For cholesterol. - FLUoxetine (PROZAC) 40 mg capsule Take 1 capsule by mouth once daily. - potassium chloride SR (MICRO-K) 10 mEq CR capsule Take 2 capsules by mouth once daily. - WALKER ROLLATOR SEAT WITH 6 WHEELS - RED Any color is fine and with a basket if available. Dx: Z91.81, M54.40, R20.8, M46.062 and R26.81 - QUEtiapine (SEROQUEL) 25 mg tablet Take 0.5 tablets by mouth daily at bedtime. - cyclobenzaprine (FLEXERIL) 10 mg tablet Take 1 tablet by mouth every 8 hours as needed for muscle spasm (or pain). - wheat dextrin (BENEFIBER HEALTHY SHAPE) 5 gram/7.4 gram powd Take 2 teaspoonsful by mouth once daily. - amino acids (AMINO ACID ORAL) Take 3 g by mouth once daily. Peptide powder - VITAMIN E ACETATE ORAL Take 10 mg by mouth once daily. - ascorbic acid (VITAMIN C ORAL) Take 90 mg by mouth once daily. - aspirin, enteric coated (ADULT LOW DOSE ASPIRIN) 81 mg EC tablet Take 1 tablet by mouth once daily. Facility-Administered Medications as of 01/08/2024 - menthol-cetylpyridinium 1 Lozenge (CEPACOL LOZENGES) Problem List As Of Date 01/08/2024 Noted Resolved Osteoporosis [M81.0] 05/26/2015 Essential hypertension [I10] 2015 Mixed hyperlipidemia [E78.2] 2015 Hypothyroidism (acquired) [E03.9] 2015 Smoker [F17.200] 2015 Pain in joint, multiple sites [M25.50] 12/07/2015 Colon cancer screening [Z12.11] 12/07/2015 09/18/2019 Elevated fasting blood sugar [R73.01] 12/07/2015 09/18/2019 Hematuria [R31.9] 12/14/2015 09/18/2019 Bilateral carotid artery disease (HCC) [I77.9] 12/20/2015 09/18/2019 Decreased sensation of lower extremity [R20.8] 01/04/2016 Spinal stenosis, lumbar region, with neurogenic*01/23/2016 Urgency of urination [R39.15] 06/13/2016 Well adult exam [Z00.00] 12/26/2016 09/18/2019 Chronic bilateral low back pain with sciatica [*12/26/2016 Pain in both hands [M79.641, M79.642] 12/26/2016 09/18/2019 Encounter for screening mammogram for breast ca*12/26/2017 09/18/2019 Medicare annual wellness visit, subsequent [Z00*12/26/2017 Recurrent major depressive disorder, in remissi*07/01/2018 Medication management [Z79.899] 12/31/2018 Bilateral carotid artery stenosis [I65.23] 12/20/2015 Hematuria [R31.9] 12/14/2015 Moderate aortic insufficiency [I35.1] 01/19/2020 Agitation [R45.1] 02/02/2020 Lymphocytic colitis [K52.832] 05/16/ (more content not included)... [facility] 01-07-2024 Note HNO ID: [id number] Author: LENO LOPEZ RN Service: ? Author Type: Registered Nurse Type: Progress Notes Filed: 01/07/2024 13:14 Note Text: CDM Telephonic Outreach Provider Action/FYI #1 attempt to contact patient. Contacted for: Routine Telephonic Outreach Contact made with patient: No, unable to leave message. Will reattempt call Leno Lopez RN January 07, 2024 1:14 PM [facility] 01-07-2024 History of Present illness Narrative CDM Telephonic Outreach Provider Action/FYI #1 attempt to contact patient. Contacted for: Routine Telephonic Outreach Contact made with patient: No, unable to leave message. Will reattempt call Leno Lopez RN January 07, 2024 1:14 PM documented in this encounter [facility] 01-07-2024 Miscellaneous Notes Patient has been identified by name and date of : Yes, Provider Kimberly Lopes 01-07-24 Time 11:21 am Pharmacy phones for refill(s): Requested Prescriptions Pending Prescriptions Disp Refills donepezil (ARICEPT) 5 mg tablet 90 tablet 0 Sig: Take 1 tablet by mouth daily with breakfast. Date of last office visit in primary care: 11/26/2023 Date of next office visit in primary care: 04/06/2024 Please advise. Thank you. Grady Cote, LILLI. documented in this encounter [facility] 01-07-2024 Note Patient Outreach (AM [facility]) EDISON ALBARRAN ([id number]) 1945 [place] Date Time Provider Department 01/07/24 LENO LOPEZ [facility] During your visit today, we recorded the following information about you: Leno Lopez RN 01/07/2024 1:14 PM Signed [facility] Telephonic Outreach Provider Action/FYI #1 attempt to contact patient. Contacted for: Routine Telephonic Outreach Contact made with patient: No, unable to leave message. Will reattempt call Leno Lopez RN January 07, 2024 1:14 PM Allergies As of Date: 01/07/2024 Noted Allergy Reaction BACTRIM (SULFAMETHOXAZOLE-TRIMETH* 015 14 - Other: See Comments Comments: Unknown. CEPHALEXIN 11/22/2014 14 - Other: See Comments Comments: Unknown. CITALOPRAM 01/05/2020 7 - Swelling Comments: Throat swelled CYMBALTA (DULOXETINE) 01/05/2020 14 - Other: See Comments Comments: Made her feel groggy. Date Reviewed: 11/26/2023 Reviewed by: Phyllis Lea RN - Fully Assessed Reason for Visit: CDM [Other] Cmt: Telephonic Outreach Prescriptions as of 01/07/2024 - donepezil (ARICEPT) 5 mg tablet Take 1 tablet by mouth daily with breakfast. - gabapentin (NEURONTIN) 300 mg capsule Take 1 capsule by mouth daily at bedtime for 180 days. - mirabegron (MYRBETRIQ) 50 mg Tb24 Take 1 tablet by mouth once daily. - cyanocobalamin (VITAMIN B-12) 500 mcg tablet Take 1 tablet by mouth once daily. - levothyroxine (SYNTHROID) 50 mcg tablet Take 1 tablet by mouth daily before breakfast. Mon-Sat and none on Saturday, Saturday - omeprazole (PRILOSEC) 40 mg capsule Take 1 capsule by mouth two times a day. Take 30-60 minutes before breakfast and dinner on an empty stomach. - atorvastatin (LIPITOR) 40 mg tablet Take 1 tablet by mouth daily at bedtime. For cholesterol. - FLUoxetine (PROZAC) 40 mg capsule Take 1 capsule by mouth once daily. - potassium chloride SR (MICRO-K) 10 mEq CR capsule Take 2 capsules by mouth once daily. - WALKER ROLLATOR SEAT WITH 6 WHEELS - RED Any color is fine and with a basket if available. Dx: Z91.81, M54.40, R20.8, M46.062 and R26.81 - QUEtiapine (SEROQUEL) 25 mg tablet Take 0.5 tablets by mouth daily at bedtime. - cyclobenzaprine (FLEXERIL) 10 mg tablet Take 1 tablet by mouth every 8 hours as needed for muscle spasm (or pain). - wheat dextrin (BENEFIBER HEALTHY SHAPE) 5 gram/7.4 gram powd Take 2 teaspoonsful by mouth once daily. - amino acids (AMINO ACID ORAL) Take 3 g by mouth once daily. Peptide powder - VITAMIN E ACETATE ORAL Take 10 mg by mouth once daily. - ascorbic acid (VITAMIN C ORAL) Take 90 mg by mouth once daily. - aspirin, enteric coated (ADULT LOW DOSE ASPIRIN) 81 mg EC tablet Take 1 tablet by mouth once daily. Facility-Administered Medications as of 01/07/2024 - menthol-cetylpyridinium 1 Lozenge (CEPACOL LOZENGES) Problem List As Of Date 01/07/2024 Noted Resolved Osteoporosis [M81.0] 05/26/2015 Essential hypertension [I10] 2015 Mixed hyperlipidemia [E78.2] 2015 Hypothyroidism (acquired) [E03.9] 2015 Smoker [F17.200] 2015 Pain in joint, multiple sites [M25.50] 12/07/2015 Colon cancer screening [Z12.11] 12/07/2015 09/18/2019 Elevated fasting blood sugar [R73.01] 12/07/2015 09/18/2019 Hematuria [R31.9] 12/14/2015 09/18/2019 Bilateral carotid artery disease (HCC) [I77.9] 12/20/2015 09/18/2019 Decreased sensation of lower extremity [R20.8] 01/04/2016 Spinal stenosis, lumbar region, with neurogenic*01/23/2016 Urgency of urination [R39.15] 06/13/2016 Well adult exam [Z00.00] 12/26/2016 09/18/2019 Chronic bilateral low back pain with sciatica [*12/26/2016 Pain in both hands [M79.641, M79.642] 12/26/2016 09/18/2019 Encounter for screening mammogram for breast ca*12/26/2017 09/18/2019 Medicare annual wellness visit, subsequent [Z00*12/26/2017 Recurrent major depressive disorder, in remissi*07/01/2018 Medication management [Z79.899] 12/31/2018 Bilateral carotid artery stenosis [I65.23] 12/20/2015 Hematuria [R31.9] 12/14/2015 Moderate aortic insufficiency [I35.1] 01/19/2020 Agitation [R45.1] 02/02/2020 Lymphocytic colitis [K52.832] 05/16/2020 Sinus bradycardia [R00.1] 12/21/2020 Protein deficiency (HCC) [E46] 01/24/2021 09/20/2022 Essential tremor [G25.0] 09/18/2021 Living will on file [[id number]] 03/21/2022 Advance directive discussed with patient [Z71.8*03/21/2022 Stage 3a chronic kidney disease (HCC) [N18.31] 09/20/2022 Type 2 diabetes mellitus with stage 3a chronic *09/20/2022 Diabetic eye exam (HCC) [Z01.00, E11.9] 09/24/2022 Dementia without behavioral disturbance (HCC) [*12/20/2022 Hypokalemia [E87.6] 03/02/2023 Failure to thrive in adult [R62.7] 03/02/2023 Unsteady gait [R26.81] 03/06/2023 At risk for falling [Z91.81] 04/12/2023 Gastroesophageal reflux disease without esophag*09/25/2023 Primary insomnia [F51.01] 09/25/2023 Encounter Numb (more content not included)... [facility] 12-12-2023 Note HNO ID: [id number] Author: LENO LOPEZ RN Service: ? Author Type: Registered Nurse Type: Progress Notes Filed: 12/12/2023 11:29 Note Text: [facility] Telephonic Outreach Provider Action/FYI #2 attempt to contact patient. Contacted for: Routine Telephonic Outreach Contact made with patient: No, left message. Leno Lopez RN December 12, 2023 11:29 AM [facility] 12-12-2023 History of Present illness Narrative CD Telephonic Outreach Provider Action/FYI #2 attempt to contact patient. Contacted for: Routine Telephonic Outreach Contact made with patient: No, left message. Leno Lopez RN December 12, 2023 11:29 AM documented in this encounter [facility] 12-12-2023 Note Patient Outreach (AM [facility]) EDISON ALBARRAN ([id number]) 1945 [facility] Date Time Provider Department 12/12/23 [place]OPE[place] [facility] [place] visit today, we recorded the following information about you: Leno Lopez RN 12/12/2023 11:29 AM Signed [facility] Telephonic Outreach Provider Action/FYI #2 attempt to contact patient. Contacted for: Routine Telephonic Outreach Contact made with patient: No, left message. Leno Lopez RN December 12, 2023 11:29 AM Allergies As of Date: 12/12/2023 Noted Allergy Reaction BACTRIM (SULFAMETHOXAZOLE-TRIMETH* 015 14 - Other: See Comments Comments: Unknown. CEPHALEXIN 11/22/2014 14 - Other: See Comments Comments: Unknown. CITALOPRAM 01/05/2020 7 - Swelling Comments: Throat swelled CYMBALTA (DULOXETINE) 01/05/2020 14 - Other: See Comments Comments: Made her feel groggy. Date Reviewed: 11/26/2023 Reviewed by: Phyllis Lea, LILLI - Fully Assessed Reason for Visit: CDM [Other] Cmt: Telephonic Outreach Prescriptions as of 12/12/2023 - gabapentin (NEURONTIN) 300 mg capsule Take 1 capsule by mouth daily at bedtime for 180 days. - mirabegron (MYRBETRIQ) 50 mg Tb24 Take 1 tablet by mouth once daily. - donepezil (ARICEPT) 5 mg tablet Take 1 tablet by mouth daily with breakfast. - cyanocobalamin (VITAMIN B-12) 500 mcg tablet Take 1 tablet by mouth once daily. - levothyroxine (SYNTHROID) 50 mcg tablet Take 1 tablet by mouth daily before breakfast. Sat-Sat and none on Saturday, Saturday - omeprazole (PRILOSEC) 40 mg capsule Take 1 capsule by mouth two times a day. Take 30-60 minutes before breakfast and dinner on an empty stomach. - atorvastatin (LIPITOR) 40 mg tablet Take 1 tablet by mouth daily at bedtime. For cholesterol. - FLUoxetine (PROZAC) 40 mg capsule Take 1 capsule by mouth once daily. - potassium chloride SR (MICRO-K) 10 mEq CR capsule Take 2 capsules by mouth once daily. - WALKER ROLLATOR SEAT WITH 6 WHEELS - RED Any color is fine and with a basket if available. Dx: Z91.81, M54.40, R20.8, M46.062 and R26.81 - QUEtiapine (SEROQUEL) 25 mg tablet Take 0.5 tablets by mouth daily at bedtime. - cyclobenzaprine (FLEXERIL) 10 mg tablet Take 1 tablet by mouth every 8 hours as needed for muscle spasm (or pain). - wheat dextrin (BENEFIBER HEALTHY SHAPE) 5 gram/7.4 gram powd Take 2 teaspoonsful by mouth once daily. - amino acids (AMINO ACID ORAL) Take 3 g by mouth once daily. Peptide powder - VITAMIN E ACETATE ORAL Take 10 mg by mouth once daily. - ascorbic acid (VITAMIN C ORAL) Take 90 mg by mouth once daily. - aspirin, enteric coated (ADULT LOW DOSE ASPIRIN) 81 mg EC tablet Take 1 tablet by mouth once daily. Facility-Administered Medications as of 12/12/2023 - menthol-cetylpyridinium 1 Lozenge (CEPACOL LOZENGES) Problem List As Of Date 12/12/2023 Noted Resolved Osteoporosis [M81.0] 05/26/2015 Essential hypertension [I10] 2015 Mixed hyperlipidemia [E78.2] 2015 Hypothyroidism (acquired) [E03.9] 2015 Smoker [F17.200] 2015 Pain in joint, multiple sites [M25.50] 12/07/2015 Colon cancer screening [Z12.11] 12/07/2015 09/18/2019 Elevated fasting blood sugar [R73.01] 12/07/2015 09/18/2019 Hematuria [R31.9] 12/14/2015 09/18/2019 Bilateral carotid artery disease (HCC) [I77.9] 12/20/2015 09/18/2019 Decreased sensation of lower extremity [R20.8] 01/04/2016 Spinal stenosis, lumbar region, with neurogenic*01/23/2016 Urgency of urination [R39.15] 06/13/2016 Well adult exam [Z00.00] 12/26/2016 09/18/2019 Chronic bilateral low back pain with sciatica [*12/26/2016 Pain in both hands [M79.641, M79.642] 12/26/2016 09/18/2019 Encounter for screening mammogram for breast ca*12/26/2017 09/18/2019 Medicare annual wellness visit, subsequent [Z00*12/26/2017 Recurrent major depressive disorder, in remissi*07/01/2018 Medication management [Z79.899] 12/31/2018 Bilateral carotid artery stenosis [I65.23] 12/20/2015 Hematuria [R31.9] 12/14/2015 Moderate aortic insufficiency [I35.1] 01/19/2020 Agitation [R45.1] 02/02/2020 Lymphocytic colitis [K52.832] 05/16/2020 Sinus bradycardia [R00.1] 12/21/2020 Protein deficiency (HCC) [E46] 01/24/2021 09/20/2022 Essential tremor [G25.0] 09/18/2021 Living will on file [[id number]] 03/21/2022 Advance directive discussed with patient [Z71.8*03/21/2022 Stage 3a chronic kidney disease (HCC) [N18.31] 09/20/2022 Type 2 diabetes mellitus with stage 3a chronic *09/20/2022 Diabetic eye exam (HCC) [Z01.00, E11.9] 09/24/2022 Dementia without behavioral disturbance (HCC) [*12/20/2022 Hypokalemia [E87.6] 03/02/2023 Failure to thrive in adult [R62.7] 03/02/2023 Unsteady gait [R26.81] 03/06/2023 At risk for falling [Z91.81] 04/12/2023 Gastroesophageal reflux disease without esophag*09/25/2023 Primary insomnia [F51.01] 09/25/2023 Encounter Statu (more content not included)... [facility] 12-11-2023 Note HNO ID: [id number] Author: LENO LOPEZ RN Service: ? Author Type: Registered Nurse Type: Progress Notes Filed: 12/11/2023 14:32 Note Text: CDM Telephonic Outreach Provider Action/FYI #1 attempt to contact patient. Contacted for: Routine Telephonic Outreach Contact made with patient: No, left message. Leno Lopez RN December 11, 2023 2:31 PM [facility] 12-11-2023 History of Present illness Narrative CDM Telephonic Outreach Provider Action/FYI #1 attempt to contact patient. Contacted for: Routine Telephonic Outreach Contact made with patient: No, left message. Leno Lopez RN December 11, 2023 2:31 PM documented in this encounter [facility] 12-11-2023 Note Patient Outreach (AM [facility]) EDISON ALBARRAN ([id number]) 1945 [facility] Date Time Provider Department 12/11/23 LENO LOPEZ [facility] During your visit today, we recorded the following information about you: Leno Lopez RN 12/11/2023 2:32 PM Signed CD Telephonic Outreach Provider Action/FYI #1 attempt to contact patient. Contacted for: Routine Telephonic Outreach Contact made with patient: No, left message. Leno Lopez RN December 11, 2023 2:31 PM Allergies As of Date: 12/11/2023 Noted Allergy Reaction BACTRIM (SULFAMETHOXAZOLE-TRIMETH* 015 14 - Other: See Comments Comments: Unknown. CEPHALEXIN 11/22/2014 14 - Other: See Comments Comments: Unknown. CITALOPRAM 01/05/2020 7 - Swelling Comments: Throat swelled CYMBALTA (DULOXETINE) 01/05/2020 14 - Other: See Comments Comments: Made her feel groggy. Date Reviewed: 11/26/2023 Reviewed by: Phyllis Lea RN - Fully Assessed Reason for Visit: CDM [Other] Cmt: Telephonic Outreach Prescriptions as of 12/11/2023 - gabapentin (NEURONTIN) 300 mg capsule Take 1 capsule by mouth daily at bedtime for 180 days. - mirabegron (MYRBETRIQ) 50 mg Tb24 Take 1 tablet by mouth once daily. - donepezil (ARICEPT) 5 mg tablet Take 1 tablet by mouth daily with breakfast. - cyanocobalamin (VITAMIN B-12) 500 mcg tablet Take 1 tablet by mouth once daily. - levothyroxine (SYNTHROID) 50 mcg tablet Take 1 tablet by mouth daily before breakfast. Mon-Sat and none on Saturday, Saturday - omeprazole (PRILOSEC) 40 mg capsule Take 1 capsule by mouth two times a day. Take 30-60 minutes before breakfast and dinner on an empty stomach. - atorvastatin (LIPITOR) 40 mg tablet Take 1 tablet by mouth daily at bedtime. For cholesterol. - FLUoxetine (PROZAC) 40 mg capsule Take 1 capsule by mouth once daily. - potassium chloride SR (MICRO-K) 10 mEq CR capsule Take 2 capsules by mouth once daily. - WALKER ROLLATOR SEAT WITH 6 WHEELS - RED Any color is fine and with a basket if available. Dx: Z91.81, M54.40, R20.8, M46.062 and R26.81 - QUEtiapine (SEROQUEL) 25 mg tablet Take 0.5 tablets by mouth daily at bedtime. - cyclobenzaprine (FLEXERIL) 10 mg tablet Take 1 tablet by mouth every 8 hours as needed for muscle spasm (or pain). - wheat dextrin (BENEFIBER HEALTHY SHAPE) 5 gram/7.4 gram powd Take 2 teaspoonsful by mouth once daily. - amino acids (AMINO ACID ORAL) Take 3 g by mouth once daily. Peptide powder - VITAMIN E ACETATE ORAL Take 10 mg by mouth once daily. - ascorbic acid (VITAMIN C ORAL) Take 90 mg by mouth once daily. - aspirin, enteric coated (ADULT LOW DOSE ASPIRIN) 81 mg EC tablet Take 1 tablet by mouth once daily. Facility-Administered Medications as of 12/11/2023 - menthol-cetylpyridinium 1 Lozenge (CEPACOL LOZENGES) Problem List As Of Date 12/11/2023 Noted Resolved Osteoporosis [M81.0] 05/26/2015 Essential hypertension [I10] 2015 Mixed hyperlipidemia [E78.2] 2015 Hypothyroidism (acquired) [E03.9] 2015 Smoker [F17.200] 2015 Pain in joint, multiple sites [M25.50] 12/07/2015 Colon cancer screening [Z12.11] 12/07/2015 09/18/2019 Elevated fasting blood sugar [R73.01] 12/07/2015 09/18/2019 Hematuria [R31.9] 12/14/2015 09/18/2019 Bilateral carotid artery disease (HCC) [I77.9] 12/20/2015 09/18/2019 Decreased sensation of lower extremity [R20.8] 01/04/2016 Spinal stenosis, lumbar region, with neurogenic*01/23/2016 Urgency of urination [R39.15] 06/13/2016 Well adult exam [Z00.00] 12/26/2016 09/18/2019 Chronic bilateral low back pain with sciatica [*12/26/2016 Pain in both hands [M79.641, M79.642] 12/26/2016 09/18/2019 Encounter for screening mammogram for breast ca*12/26/2017 09/18/2019 Medicare annual wellness visit, subsequent [Z00*12/26/2017 Recurrent major depressive disorder, in remissi*07/01/2018 Medication management [Z79.899] 12/31/2018 Bilateral carotid artery stenosis [I65.23] 12/20/2015 Hematuria [R31.9] 12/14/2015 Moderate aortic insufficiency [I35.1] 01/19/2020 Agitation [R45.1] 02/02/2020 Lymphocytic colitis [K52.832] 05/16/2020 Sinus bradycardia [R00.1] 12/21/2020 Protein deficiency (HCC) [E46] 01/24/2021 09/20/2022 Essential tremor [G25.0] 09/18/2021 Living will on file [[id number]] 03/21/2022 Advance directive discussed with patient [Z71.8*03/21/2022 Stage 3a chronic kidney disease (HCC) [N18.31] 09/20/2022 Type 2 diabetes mellitus with stage 3a chronic *09/20/2022 Diabetic eye exam (HCC) [Z01.00, E11.9] 09/24/2022 Dementia without behavioral disturbance (HCC) [*12/20/2022 Hypokalemia [E87.6] 03/02/2023 Failure to thrive in adult [R62.7] 03/02/2023 Unsteady gait [R26.81] 03/06/2023 At risk for falling [Z91.81] 04/12/2023 Gastroesophageal reflux disease without esophag*09/25/2023 Primary insomnia [F51.01] 09/25/2023 Encounter Status: (more content not included)... [facility] 11-29-2023 Miscellaneous Notes Patient has been identified by name and date of : Pharmacy phones for refill(s): Requested Prescriptions Pending Prescriptions Disp Refills gabapentin (NEURONTIN) 300 mg capsule 90 capsule 1 Sig: Take 1 capsule by mouth daily at bedtime for 180 days. Date of last office visit in primary care: 11/26/2023 Date of next office visit in primary care: 04/06/2024 Please advise. Thank you. Teresa Yuen RN. documented in this encounter [facility] 11-27-2023 Miscellaneous Notes Sw received message back from Zack Juan,[facility]. In message Zack noted that he is having their navigator help assist patient with signing up for Medicaid and then patient will be placed on Passport program. Sw spoke with patient and she reports that she is in the process of receiving assistance through [facility]. Just not sure as to where she is at with that process. Patient also notes that her grand daughter Danna has tried to help her with bill pay. Patient reports that she is back to paying her own bills. Patient does not current falls and notes that she had 3 falls in one day recently. Patient reports that a holiness that she has been affiliated in the past helped her with a railing to go down her hallway to help with navigating safely down the garner. Patient also notes that it is okay for SW to speak with her Grand Daughter Danna in regards to being able to reach out to this Sw for any concerns regarding patient assistance needs. Sw left message for Zack Juan, [facility] to call Sw back to update SW on status of patient ability to receive assistive services from [facility]. documented in this encounter [facility] 11-26-2023 Miscellaneous Notes Behavioral Health Social Work Progress Note Patient identified for [facility] from: PCP Reason for referral: [facility] Assessment [facility] encounter type: Telephone Encounter Attempts to Outreach: 1 attempt Referral made: Other Final Disposition: Patient declined Patient Discharged?: Yes Patient reported that caregiver was able to meet their needs today?: N/A therapist spoke with patient. She states that she is not interested in services at this time. None of that will help my dementia. Patient states that she was appreciative of call. ROSE MARY Jones November 26, 2023 documented in this encounter [facility] 11-26-2023 Instructions Colten Oro PA-C - 11/26/2023 2:02 PM EST > 1 year Appt w/ B. ABIMAEL Oro, [facility] for annual follow-up and refills. documented in this encounter [facility] 11-26-2023 Note HNO ID: [id number] Author: COLTEN ORO PA-C Service: ? Author Type: Physician Technical Assistant Type: Progress Notes Filed: 11/26/2023 19:17 Note Text: [facility] PATIENT CLINIC NOTE Some elements copied from his previous note, which have been updated where appropriate, and all reflect current medical decision making from date of this visit. NAME: Edison Albarran CHIEF COMPLAINT: OAB follow up HISTORY OF PRESENT ILLNESS: Edison Albarran is a 78 year old female an established patient following up for OAB for annual follow-up The patient reports doing very well on Myrbetriq 50 mg refilled today and she is still doing well overall LUTS: LUTS managed well with Myrbetriq 50 mg Other symptoms: LABS: Hematocrit (%) Date Value 08/06/2023 37.1 03/03/2023 32.8 03/01/2023 34.8 11/30/2022 37.4 07/07/2020 40.4 03/09/2020 37.6 11/04/2019 35.9 06/24/2019 39.3 No results found for: PSA No results found for: TESTOST No results found for: PSA Creatinine Date Value Ref Range Status 08/06/2023 0.99 (H) 0.58 - 0.96 mg/dL Final 03/21/2023 1.00 (H) 0.58 - 0.96 mg/dL Final 03/03/2023 0.76 0.58 - 0.96 mg/dL Final 03/02/2023 0.80 0.58 - 0.96 mg/dL Final MEDICATIONS: donepezil (ARICEPT) 5 mg tabletTake 1 tablet by mouth daily with breakfast.Disp: 90 tabletRfl: 0 cyanocobalamin (VITAMIN B-12) 500 mcg tabletTake 1 tablet by mouth once daily.Disp: 90 tabletRfl: 1 levothyroxine (SYNTHROID) 50 mcg tabletTake 1 tablet by mouth daily before breakfast. Mon-Sat and none on Saturday, SaturdayDisp: 90 tabletRfl: 1 omeprazole (PRILOSEC) 40 mg capsuleTake 1 capsule by mouth two times a day. Take 30-60 minutes before breakfast and dinner on an empty stomach.Disp: 180 capsuleRfl: 3 atorvastatin (LIPITOR) 40 mg tabletTake 1 tablet by mouth daily at bedtime. For cholesterol.Disp: 90 tabletRfl: 1 FLUoxetine (PROZAC) 40 mg capsuleTake 1 capsule by mouth once daily.Disp: 30 capsuleRfl: 5 potassium chloride SR (MICRO-K) 10 mEq CR capsuleTake 2 capsules by mouth once daily.Disp: 60 capsuleRfl: 5 WALKER ROLLATOR SEAT WITH 6 WHEELS - REDAny color is fine and with a basket if available. Dx: Z91.81, M54.40, R20.8, M46.062 and R26.81Disp: 1 EachRfl: 0 gabapentin (NEURONTIN) 300 mg capsuleTake 1 capsule by mouth daily at bedtime for 180 days.Disp: 90 capsuleRfl: 1 QUEtiapine (SEROQUEL) 25 mg tabletTake 0.5 tablets by mouth daily at bedtime.Disp: 30 tabletRfl: 3 gabapentin (NEURONTIN) 300 mg capsuleTake 300 mg by mouth daily at bedtime.Disp: Rfl: mirabegron (MYRBETRIQ) 50 mg [id number] 1 tablet by mouth once daily.Disp: 90 tabletRfl: 3 cyclobenzaprine (FLEXERIL) 10 mg tabletTake 1 tablet by mouth every 8 hours as needed for muscle spasm (or pain).Disp: 30 tabletRfl: 0 wheat dextrin (BENEFIBER HEALTHY SHAPE) 5 gram/7.4 gram powdTake 2 teaspoonsful by mouth once daily.Disp: Rfl: amino acids (AMINO ACID ORAL)Take 3 g by mouth once daily. Peptide powder Disp: Rfl: VITAMIN E ACETATE ORALTake 10 mg by mouth once daily. Disp: Rfl: ascorbic acid (VITAMIN C ORAL)Take 90 mg by mouth once daily. Disp: Rfl: aspirin, enteric coated (ADULT LOW DOSE ASPIRIN) 81 mg EC tabletTake 1 tablet by mouth once daily.Disp: Rfl: 0 PAST MEDICAL HISTORY: PAST MEDICAL HISTORY Diagnosis Date Advance directive discussed with patient 03/21/202203/2022 Agitation 02/02/2020 Aneurysm of right subclavian artery (HCC) At risk for falling 04/12/2023 Bilateral carotid artery disease (HCC) 12/20/2015 US 12/2015: 20-40% on Rt and 40-60% on left. US 01/2017 unchanged. Chronic bilateral low back pain with sciatica 12/26/2016 Constipation 07/09/2018 after starting lipitor Decreased sensation of lower extremity 01/04/2016 Dementia without behavioral disturbance (HCC) 12/20/2022 Diabetic eye exam (HCC) 09/24/2022 Last done 08/08/22 Essential hypertension 2015 Essential tremor 09/18/2021 Ex-smoker 2015 1/2-1 PPD since early , quit January 2018 Failure to thrive in adult 03/02/2023 Gastroesophageal reflux disease without esophagitis 09/25/2023 Hematuria 12/14/2015 Urology w/u neg. Hypothyroidism (acquired) 2015 Living will on file 03/21/2022 DPA; Casey (son) Lymphocytic colitis 05/16/2020 Possibly Zoloft related. Mediastinal lymphadenopathy 08/04/2018 Prominent Mediastinal lymphadenopathy noted on CT 08/01/18. CT 01/05/2019 no mediastinal lymphadenopathy Mixed hyperlipidemia 2015 Moderate aortic insufficiency 01/19/[address] Cordoba Osteoporosis 05/26/2015 Overactive bladder Pain in both hands 12/26/2016 Pain in joint, multiple sites 12/07/2015 On neurontin Primary insomnia 09/25/2023 Seeing Neuro Recurrent major depressive disorder, in remission ([facility]) 07/01/2018 Spinal stenosis, lumbar region, with neurogenic claudication 01/23/2016 Stage 3a chronic k (more content not included)... [facility] 11-26-2023 History of Present illness Narrative Images from the original note were not included. [facility] EST[facility] PATIENT CLINIC NOTE Some elements copied from his previous note, which have been updated where appropriate, and all reflect current medical decision making from date of this visit. NAME: Edison Albarran CHIEF COMPLAINT: OAB follow up HISTORY OF PRESENT ILLNESS: Edison Albarran is a 78 year old female an established patient following up for OAB for annual follow-up The patient reports doing very well on Myrbetriq 50 mg refilled today and she is still doing well overall LUTS: LUTS managed well with Myrbetriq 50 mg Other symptoms: LABS: Hematocrit (%) Date Value 08/06/2023 37.1 03/03/2023 32.8 03/01/2023 34.8 11/30/2022 37.4 07/07/2020 40.4 03/09/2020 37.6 11/04/2019 35.9 06/24/2019 39.3 No results found for: PSA No results found for: TESTOST No results found for: PSA Creatinine Date Value Ref Range Status 08/06/2023 0.99 (H) 0.58 - 0.96 mg/dL Final 03/21/2023 1.00 (H) 0.58 - 0.96 mg/dL Final 03/03/2023 0.76 0.58 - 0.96 mg/dL Final 03/02/2023 0.80 0.58 - 0.96 mg/dL Final MEDICATIONS: donepezil (ARICEPT) 5 mg tablet^Take 1 tablet by mouth daily with breakfast.^Disp: 90 tablet^Rfl: 0 cyanocobalamin (VITAMIN B-12) 500 mcg tablet^Take 1 tablet by mouth once daily.^Disp: 90 tablet^Rfl: 1 levothyroxine (SYNTHROID) 50 mcg tablet^Take 1 tablet by mouth daily before breakfast. Sat-Sat and none on Saturday, Saturday^Disp: 90 tablet^Rfl: 1 omeprazole (PRILOSEC) 40 mg capsule^Take 1 capsule by mouth two times a day. Take 30-60 minutes before breakfast and dinner on an empty stomach.^Disp: 180 capsule^Rfl: 3 atorvastatin (LIPITOR) 40 mg tablet^Take 1 tablet by mouth daily at bedtime. For cholesterol.^Disp: 90 tablet^Rfl: 1 FLUoxetine (PROZAC) 40 mg capsule^Take 1 capsule by mouth once daily.^Disp: 30 capsule^Rfl: 5 potassium chloride SR (MICRO-K) 10 mEq CR capsule^Take 2 capsules by mouth once daily.^Disp: 60 capsule^Rfl: 5 WALKER ROLLATOR SEAT WITH 6 WHEELS - RED^Any color is fine and with a basket if available. Dx: Z91.81, M54.40, R20.8, M46.062 and R26.81^Disp: 1 Each^Rfl: 0 gabapentin (NEURONTIN) 300 mg capsule^Take 1 capsule by mouth daily at bedtime for 180 days.^Disp: 90 capsule^Rfl: 1 QUEtiapine (SEROQUEL) 25 mg tablet^Take 0.5 tablets by mouth daily at bedtime.^Disp: 30 tablet^Rfl: 3 gabapentin (NEURONTIN) 300 mg capsule^Take 300 mg by mouth daily at bedtime.^Disp: ^Rfl: mirabegron (MYRBETRIQ) 50 mg Tb24^Take 1 tablet by mouth once daily.^Disp: 90 tablet^Rfl: 3 cyclobenzaprine (FLEXERIL) 10 mg tablet^Take 1 tablet by mouth every 8 hours as needed for muscle spasm (or pain).^Disp: 30 tablet^Rfl: 0 wheat dextrin (BENEFIBER HEALTHY SHAPE) 5 gram/7.4 gram powd^Take 2 teaspoonsful by mouth once daily.^Disp: ^Rfl: amino acids (AMINO ACID ORAL)^Take 3 g by mouth once daily. Peptide powder ^Disp: ^Rfl: VITAMIN E ACETATE ORAL^Take 10 mg by mouth once daily. ^Disp: ^Rfl: ascorbic acid (VITAMIN C ORAL)^Take 90 mg by mouth once daily. ^Disp: ^Rfl: aspirin, enteric coated (ADULT LOW DOSE ASPIRIN) 81 mg EC tablet^Take 1 tablet by mouth once daily.^Disp: ^Rfl: 0 PAST MEDICAL HISTORY: PAST MEDICAL HISTORY Diagnosis Date Advance directive discussed with patient 03/21/202203/2022 Agitation 02/02/2020 Aneurysm of right subclavian artery (HCC) At risk for falling 04/12/2023 Bilateral carotid artery disease (HCC) 12/20/2015 US 12/2015: 20-40% on Rt and 40-60% on left. US 01/2017 unchanged. Chronic bilateral low back pain with sciatica 12/26/2016 Constipation 07/09/2018 after starting lipitor Decreased sensation of lower extremity 01/04/2016 Dementia without behavioral disturbance (HCC) 12/20/2022 Diabetic eye exam (HCC) 09/24/2022 Last done 08/08/22 Essential hypertension 2015 Essential tremor 09/18/2021 Ex-smoker 2015 1/2-1 PPD since early 50s, quit January 2018 Failure to thrive in adult 03/02/2023 Gastroesophageal reflux disease without esophagitis 09/25/2023 Hematuria 12/14/2015 Urology w/u neg. Hypothyroidism (acquired) 2015 Living will on file 03/21/2022 DPA; Casey (son) Lymphocytic colitis 05/16/2020 Possibly Zoloft related. Mediastinal lymphadenopathy 08/04/2018 Prominent Mediastinal lymphadenopathy noted on CT 08/01/18. CT 01/05/2019 no mediastinal lymphadenopathy Mixed hyperlipidemia 2015 Moderate aortic insufficiency 01/19/[address] Cordoba Osteoporosis 05/26/2015 Overactive bladder Pain in both hands 12/26/2016 Pain in joint, multiple sites 12/07/2015 On neurontin Primary insomnia 09/25/2023 Seeing Neuro Recurrent major depressive disorder, in remission ([facility]) 07/01/2018 Spinal stenosis, lumbar region, with neurogenic claudication 01/23/2016 Stage 3a chronic kidney disease ([facility]) 09/20/2022 Type 2 diabetes mellitus with stage 3a chronic kidney disease ([facility]) 09/20/2022 Type 2 diabetes mellitus without complication, without long-term current use of insulin ([facility]) 12/07/2015 Unsteady gait 03/06/2023 Urgency of urination 06/13/2016 REVIEW OF SYSTEMS: GENERAL: No fever, chills, weight loss, or fatigue. All other systems reviewed and are negative PHYSICAL EXAMINATION: Blood pressure 130/68, pulse 106, temperature 36.4 C (97.6 F), height 149.9 cm (4' 11 ), weight 43.8 kg (96 lb 9.6 oz), SpO2 95%. GENERAL: WNL nutrition, no deformities, healthy appearing PROBLEM LIST REVIEW: Yes LABS: Results for orders placed or performed in visit on 11/26/23 UA DIP, URINE (POC) Result Value Ref Range GLUCOSE UA (POCT) Negative Negative mg/dL BILIRUBIN UA (POCT) Negative Negative KETONE UA (POCT) Negative Negative mg/dL SPECIFIC GRAVITY UA (POCT) 1.015 1.005 - 1.030 HEMOGLOBIN/BLOOD UA (POCT) Trace-intact (A) Negative PH UA (POCT) 5.5 4.5 - 8.0 PROTEIN UA (POCT) Negative Negative mg/dL UROBILINOGEN UA (POCT) 2.0 (A) Normal E.U./dL NITRITE UA (POCT) Negative Negative LEUKOCYTES UA (POCT) Negative Negative COLOR UA (POCT) Yellow CLARITY UA (POCT) Clear PROCEDURES: IMPRESSION/PLAN: 77 year old female with 1. Overactive bladder - ICD9: 596.51, ICD10: N32.81 > Myrbetriq 50 mg daily - refilled > 1 year Appt w/ B. ABIMAEL Oro MT, PA-C for annual follow-up and refills. ABIMAEL Telles MT, PA-C documented in this encounter [facility] 11-26-2023 Note HNO ID: [id number] Author: MAYANK QUINTANILLA APRN.CLIENT SERVICES REPRESENTATIVE Service: ? Author Type: Nurse Practitioner Type: Progress Notes Filed: 11/26/2023 12:25 Note Text: Chief Complaint Patient presents with: ER F/U HPI Edison Albarran is a 78 year old female who presents here today for ER Follow Up. Chest pain since late October 2023 when she fell at home in her kitchen using a stool. She was avoiding falling into a bread machine. Was evaluated in [place] ED 11/09. Xrays were negative at that time. Today, patient is reporting 8/10 bilateral rib pain that has not improved since being in ED. Taking flexeril and tylenol with minimal relief. Endorses mild shortness of breath, unable to take deep breaths related to the rib pain. Difficulty getting dressed and having to only wear stretchy clothes. Patient lives alone since son . No family/friends in [facility]. Granddaughter in [place] is supposed to be paying bills but has no way of knowing if bills are paid. Patient reports she still has electric and water but has no clue how long they will be on. Has last talked to her granddaughter a few weeks ago. Appears to have Zack Juan RN from [facility]. Past medical history, appointments, medications, allergies reviewed. Previous Medical History PAST MEDICAL HISTORY Diagnosis Date Advance directive discussed with patient 03/21/202203/2022 Agitation 02/02/2020 Aneurysm of right subclavian artery (HCC) At risk for falling 04/12/2023 Bilateral carotid artery disease (HCC) 12/20/2015 US 12/2015: 20-40% on Rt and 40-60% on left. US 01/2017 unchanged. Chronic bilateral low back pain with sciatica 12/26/2016 Constipation 07/09/2018 after starting lipitor Decreased sensation of lower extremity 01/04/2016 Dementia without behavioral disturbance ([facility]) 12/20/2022 Diabetic eye exam ([facility]) 09/24/2022 Last done 08/08/22 Essential hypertension 2015 Essential tremor 09/18/2021 Ex-smoker 2015 1/2-1 PPD since early 50's, quit January 2018 Failure to thrive in adult 03/02/2023 Gastroesophageal reflux disease without esophagitis 09/25/2023 Hematuria 12/14/2015 Urology w/u neg. Hypothyroidism (acquired) 2015 Living will on file 03/21/2022 DPA; Casey (son) Lymphocytic colitis 05/16/2020 Possibly Zoloft related. Mediastinal lymphadenopathy 08/04/2018 Prominent Mediastinal lymphadenopathy noted on CT 08/01/18. CT 01/05/2019 no mediastinal lymphadenopathy Mixed hyperlipidemia 2015 Moderate aortic insufficiency 01/19/[address] Cordoba Osteoporosis 05/26/2015 Overactive bladder Pain in both hands 12/26/2016 Pain in joint, multiple sites 12/07/2015 On neurontin Primary insomnia 09/25/2023 Seeing Neuro Recurrent major depressive disorder, in remission ([facility]) 07/01/2018 Spinal stenosis, lumbar region, with neurogenic claudication 01/23/2016 Stage 3a chronic kidney disease ([facility]) 09/20/2022 Type 2 diabetes mellitus with stage 3a chronic kidney disease ([facility]) 09/20/2022 Type 2 diabetes mellitus without complication, without long-term current use of insulin ([facility]) 12/07/2015 Unsteady gait 03/06/2023 Urgency of urination 06/13/2016 Previous Surgical History PAST SURGICAL HISTORY Procedure Laterality Date 2D ECHO (EXEP) 09/2020 EF=64%, Mild Noe dysf and La enlargment, 2+ AR CARPAL TUNNEL RIGHT WRIST COLONOSCOPY 2010 repeat 10 yrs COLONOSCOPY FLX DX W/COLLJ SPEC WHEN PFRMD 04/21/2020 Colonoscopy CORRECTION OF BUNION Left ESOPHAGOGASTRODUODENOSCOPY TRANSORAL DIAGNOSTIC 04/21/2020 EGD FECAL OCCULT BLOOD TEST 01/01/2018 negative HYSTERECTOMY HX 1970 one ovary removed LEXISCAN STRESS TEST 11/21/2020 negative PAST SURGICAL HISTORY OF 1971 appendectomy PAST SURGICAL HISTORY OF 1987 breast lump, benign STRESS TEST 07/09/2016 WNL TUMOR REMOVAL (SPECIFY LOCATION) HX 2001 stomach Family History FAMILY HISTORY Problem Relation Age of Onset Breast Cancer Mother over 50 Hypertension Mother Lipids Mother Osteoporosis Mother Thyroid Mother Cancer Father stomach Cancer Brother lung Alzheimer's Disease Brother dementia Diabetes Brother Patient Allergies ALLERGIES Allergen Reactions Bactrim [Sulfametho* Other: See Comments Unknown. Cephalexin Other: See Comments Unknown. Citalopram Swelling Throat swelled Cymbalta [Duloxetin* Other: See Comments Made her feel groggy. Current Medications Current Outpatient Medications on File Prior to Visit Medication Sig donepezil (ARICEPT) 5 mg tablet Take 1 tablet by mouth daily with breakfast. cyanocobalamin (VITAMIN B-12) 500 mcg tablet Take 1 tablet by mouth once daily. levothyroxine (SYNTHROID) 50 mcg tablet Take 1 tablet by mouth daily before breakfast. Sat-Sat and none on Saturday, Saturday omeprazole (PRILOSEC) 40 mg capsule Take 1 capsule by mouth two times a day. Take 30-60 minutes before b (more content not included)... [facility] 11-26-2023 History of Present illness Narrative Chief Complaint Patient presents with: ER F/U HPI Edison Albarran is a 78 year old female who presents here today for ER Follow Up. Chest pain since late October 2023 when she fell at home in her kitchen using a stool. She was avoiding falling into a bread machine. Was evaluated in [place] ED 2. Xrays were negative at that time. Today, patient is reporting 8/10 bilateral rib pain that has not improved since being in ED. Taking flexeril and tylenol with minimal relief. Endorses mild shortness of breath, unable to take deep breaths related to the rib pain. Difficulty getting dressed and having to only wear stretchy clothes. Patient lives alone since son . No family/friends in area. Granddaughter in [place] is supposed to be paying bills but has no way of knowing if bills are paid. Patient reports she still has electric and water but has no clue how long they will be on. Has last talked to her granddaughter a few weeks ago. Appears to have Zack Juan RN from [facility] from [facility]. Past medical history, appointments, medications, allergies reviewed. Previous Medical History PAST MEDICAL HISTORY Diagnosis Date Advance directive discussed with patient 03/21/202203/2022 Agitation 02/02/2020 Aneurysm of right subclavian artery (HCC) At risk for falling 04/12/2023 Bilateral carotid artery disease (HCC) 12/20/2015 US 12/2015: 20-40% on Rt and 40-60% on left. US 01/2017 unchanged. Chronic bilateral low back pain with sciatica 12/26/2016 Constipation 07/09/2018 after starting lipitor Decreased sensation of lower extremity 01/04/2016 Dementia without behavioral disturbance ([facility]) 12/20/2022 Diabetic eye exam ([facility]) 09/24/2022 Last done 08/08/22 Essential hypertension 2015 Essential tremor 09/18/2021 Ex-smoker 2015 1/2-1 PPD since early 50s, quit January 2018 Failure to thrive in adult 03/02/2023 Gastroesophageal reflux disease without esophagitis 09/25/2023 Hematuria 12/14/2015 Urology w/u neg. Hypothyroidism (acquired) 2015 Living will on file 03/21/2022 DPA; Casey (son) Lymphocytic colitis 05/16/2020 Possibly Zoloft related. Mediastinal lymphadenopathy 08/04/2018 Prominent Mediastinal lymphadenopathy noted on CT 08/01/18. CT 01/05/2019 no mediastinal lymphadenopathy Mixed hyperlipidemia 2015 Moderate aortic insufficiency 01/19/[address] Cordoba Osteoporosis 05/26/2015 Overactive bladder Pain in both hands 12/26/2016 Pain in joint, multiple sites 12/07/2015 On neurontin Primary insomnia 09/25/2023 Seeing Neuro Recurrent major depressive disorder, in remission ([facility]) 07/01/2018 Spinal stenosis, lumbar region, with neurogenic claudication 01/23/2016 Stage 3a chronic kidney disease ([facility]) 09/20/2022 Type 2 diabetes mellitus with stage 3a chronic kidney disease ([facility]) 09/20/2022 Type 2 diabetes mellitus without complication, without long-term current use of insulin (HCC) 12/07/2015 Unsteady gait 03/06/2023 Urgency of urination 06/13/2016 Previous Surgical History PAST SURGICAL HISTORY Procedure Laterality Date 2D ECHO (EXEP) 09/2020 EF=64%, Mild Noe dysf and La enlargment, 2+ AR CARPAL TUNNEL RIGHT WRIST COLONOSCOPY 2010 repeat 10 yrs COLONOSCOPY FLX DX W/COLLJ SPEC WHEN PFRMD 04/21/2020 Colonoscopy CORRECTION OF BUNION Left ESOPHAGOGASTRODUODENOSCOPY TRANSORAL DIAGNOSTIC 04/21/2020 EGD FECAL OCCULT BLOOD TEST 01/01/2018 negative HYSTERECTOMY HX 1970 one ovary removed LEXISCAN STRESS TEST 11/21/2020 negative PAST SURGICAL HISTORY OF 1971 appendectomy PAST SURGICAL HISTORY OF 1987 breast lump, benign STRESS TEST 07/09/2016 WNL TUMOR REMOVAL (SPECIFY LOCATION) HX 2001 stomach Family History FAMILY HISTORY Problem Relation Age of Onset Breast Cancer Mother over 50 Hypertension Mother Lipids Mother Osteoporosis Mother Thyroid Mother Cancer Father stomach Cancer Brother lung Alzheimer's Disease Brother dementia Diabetes Brother Patient Allergies ALLERGIES Allergen Reactions Bactrim [Sulfametho* Other: See Comments Unknown. Cephalexin Other: See Comments Unknown. Citalopram Swelling Throat swelled Cymbalta [Duloxetin* Other: See Comments Made her feel groggy. Current Medications Current Outpatient Medications on File Prior to Visit Medication Sig donepezil (ARICEPT) 5 mg tablet Take 1 tablet by mouth daily with breakfast. cyanocobalamin (VITAMIN B-12) 500 mcg tablet Take 1 tablet by mouth once daily. levothyroxine (SYNTHROID) 50 mcg tablet Take 1 tablet by mouth daily before breakfast. Mon-Sat and none on Saturday, Saturday omeprazole (PRILOSEC) 40 mg capsule Take 1 capsule by mouth two times a day. Take 30-60 minutes before breakfast and dinner on an empty stomach. atorvastatin (LIPITOR) 40 mg tablet Take 1 tablet by mouth daily at bedtime. For cholesterol. FLUoxetine (PROZAC) 40 mg capsule Take 1 capsule by mouth once daily. potassium chloride SR (MICRO-K) 10 mEq CR capsule Take 2 capsules by mouth once daily. WALKER ROLLATOR SEAT WITH 6 WHEELS - RED Any color is fine and with a basket if available. Dx: Z91.81, M54.40, R20.8, M46.062 and R26.81 gabapentin (NEURONTIN) 300 mg capsule Take 1 capsule by mouth daily at bedtime for 180 days. QUEtiapine (SEROQUEL) 25 mg tablet Take 0.5 tablets by mouth daily at bedtime. gabapentin (NEURONTIN) 300 mg capsule Take 300 mg by mouth daily at bedtime. mirabegron (MYRBETRIQ) 50 mg Tb24 Take 1 tablet by mouth once daily. cyclobenzaprine (FLEXERIL) 10 mg tablet Take 1 tablet by mouth every 8 hours as needed for muscle spasm (or pain). wheat dextrin (BENEFIBER HEALTHY SHAPE) 5 gram/7.4 gram powd Take 2 teaspoonsful by mouth once daily. amino acids (AMINO ACID ORAL) Take 3 g by mouth once daily. Peptide powder VITAMIN E ACETATE ORAL Take 10 mg by mouth once daily. ascorbic acid (VITAMIN C ORAL) Take 90 mg by mouth once daily. aspirin, enteric coated (ADULT LOW DOSE ASPIRIN) 81 mg EC tablet Take 1 tablet by mouth once daily. Current Facility-Administered Medications on File Prior to Visit Medication menthol-cetylpyridinium 1 Lozenge (CEPACOL LOZENGES) Social History Social History Tobacco Use Smoking status: Some Days Packs/day: .5 Types: Cigarettes Smokeless tobacco: Never Tobacco comments: Roughly one pack per week Vaping Use Vaping Use: Never used Substance Use Topics Alcohol use: Not Currently Drug use: Never Review of Symptoms REVIEW OF SYSTEMS See HPI EXAM: BP 144/70 Pulse 79 Resp 16 Wt 43.5 kg (96 lb) BMI 19.39 kg/m General Appearance: Well appearing, alert, in no acute distress, well-hydrated, well nourished.. Lungs: Lungs clear to auscultation. No wheezing, rhonchi, rales.. Heart: RRR without murmur, gallop, or rubs. No ectopy. Musculoskeletal: Positive findings: Generalized pain along bilateral anterior ribs, most severe on right side, more tender with palpation. Health Maintenance List BP Controlled (<130/80) due on 04/25/2022 Dilated Retinal Exam due on 08/08/2023 Diabetic Foot Exam due on 09/20/2023 Advance Directive Discussion due on 10/07/2023 RSV Vaccine(1 - 1-dose 60+ series) due on 09/25/2024 Shingrix Vaccine(2 of 2) due on 09/25/2024 HbA1C due on 03/26/2024 Serum Creatinine due on 08/06/2024 Hemoglobin/Hematocrit due on 08/06/2024 Urine Albumin:Creatinine Ratio due on 09/25/2024 LDL Cholesterol due on 09/25/2024 Annual PCP Team Chronic Disease Visit due on 09/25/2024 DTaP,Tdap,Td Vaccine(3 - Td or Tdap) due on 05/29/2028 Bone Density Screening Completed Influenza Vaccine Completed Covid-19 Vaccine Completed Pneumococcal Vaccine: 65+ Completed Colorectal Cancer Screening Discontinued ASSESSMENT/PLAN: 1. Anterior chest wall pain - ICD9: 786.52, ICD10: R07.89 (primary diagnosis) Atypical chest pain, symptoms are not consistent with cardiac ischemia due to localization of the pain possible etiology include Costochondritis/chest wall pain and musculoskeletal 2. 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 Dementia, unspecified dementia severity, unspecified dementia type, unspecified whether behavioral, psychotic, or mood disturbance or anxiety (HCC) - ICD9: 294.20, ICD10: F03.90 - CONSULT TO PRIMARY CARE BEHAVIORAL HEALTH ADULT Mayank Quintanilla APRN.CLIENT SERVICES REPRESENTATIVE documented in this encounter [facility] 11-25-2023 Miscellaneous Notes Pt calling in as she thinks someone called her to make her an appointment. [facility] follow up [facility]t. Appt given with Mayank Quintanilla for tomorrow at 1140. Pt was in [place] ER on 11/09 for chest pain. Pt states her chest is still sore. She can't wear a tight bra because it hurts. During conversation, pt was laughing inappropriately and kept saying she was going nuts. Asked pt if she had any family support. She states no. States her son recently and he was the only family she has. Emergency contact listed is her granddaughter who lives in [place]. Pt states she has no friends or anyone that can help her. States she is currently still driving because she has no one else. States she has lived here for 30 years but keeps to herself because she is going nuts and doesn't want people to see her like that. She states she is supposed to be getting some aids to come in and help her but she hasn't heard from anyone. Pt unsure who was doing that for her. Asked pt if maybe we could get our delinquency prevention social worker involved to see if we can find her some help. documented in this encounter [facility] 11-13-2023 Note HNO ID: [id number] Author: ?, ?, ? Service: ? Author Type: ? Type: Progress Notes Filed: 11/13/2023 08:58 Note Text: POPULATION HEALTH NAVIGATION OUTREACH Action/ 2nd attempt: Left voicemail to schedule ER follow up. Patient Identified by Name and : NO Outreach Outcome/Action Unable to reach patient: Left message Did you use a PCP flex slot to schedule this appointment? N/A Reason for Outreach Community Monitoring Pool Carina London Population Health Navigator November 13, 2023 8:58 AM [facility] 11-11-2023 Note HNO ID: [id number] Author: ?, ?, ? Service: ? Author Type: ? Type: Progress Notes Filed: 11/11/2023 12:26 Note Text: POPULATION HEALTH NAVIGATION OUTREACH Action/ 1st attempt: Left voicemail and sent MyChart to schedule ER follow up. Patient Identified by Name and : NO Outreach Outcome/Action Unable to reach patient: Left message MyChart message sent Did you use a PCP flex slot to schedule this appointment? N/A Reason for Outreach Community Monitoring Pool Payer: Payor: [employer] MEDICARE / Plan: [employer]NA [employer]ft PLUS / Product Type: HMO / Care Gap Reviewed:: Follow-up appointment Reminder: Reminder note to check Health Maintenance for items below Health Maintenance items due: BP Controlled (<130/80) due on 04/25/2022 Dilated Retinal Exam due on 08/08/2023 Diabetic Foot Exam due on 09/20/2023 Advance Directive Discussion due on 10/07/2023 Navigation Signature: Carina London Population Health Navigator November 11, 2023 12:25 PM [facility] 11-11-2023 History of Present illness Narrative POPULATION HEALTH NAVIGATION OUTREACH Action/ 1st attempt: Left voicemail and sent MyChart to schedule ER follow up. Patient Identified by Name and : NO Outreach Outcome/Action Unable to reach patient: Left message MyChart message sent Did you use a PCP flex slot to schedule this appointment? N/A Reason for Outreach [facility] Payer: Payor: HU[employer]NA MEDICARE / Plan: HUMANA GOLD PLUS / Product Type: HMO / Care Gap Reviewed:: Follow-up appointment Reminder: Reminder note to check Health Maintenance for items below Health Maintenance items due: BP Controlled (<130/80) due on 04/25/2022 Dilated Retinal Exam due on 08/08/2023 Diabetic Foot Exam due on 09/20/2023 Advance Directive Discussion due on 10/07/2023 Navigation Signature: Carina Do [facility] Navigator November 11, 2023 12:25 PM Electronically signed by [employer] [facility] Carina Norton at 11/11/2023 12:26 PM EST ED Follow-Up Note Provider Action / FYI: Navigation Team: Please contact patient for ED follow up with her provider for chest pain status post injury. Patient seen in ED: In [facility] ED [place] Contact made with Patient: Yes The patient was identified by Name and Date of . Discussed Care with: patient. Patient remains with pain across chest with movement. ED encouraged patient to take deep breaths. Patient also taking Acetaminophen for pain control. Red flag symptoms discussed with patient. Encounter sent to Navigation Team to assist patient with ED follow up appointment. Patient was seen in the Emergency Department (ED) Location: [place] emergency room Date: 11-09-23 Reason for ED Visit: Chest pain ED Intervention: Care Timeline 0917 Arrived 0936 ECG COMPLETE EKG 0958 acetaminophen 1000 mg 1028 XR RIBS BILATERAL/CHEST 4V 1152 Discharged Based on body mechanic apprentice, the following disposition is advised: No symptoms or symptoms present, not severe. Routed to: Navigation Team: PCP visit within 48 hours [facility] ELE[facility] Education Provided this Outreach: Shanelle Lopez RN November 11, 2023 11:56 AM documented in this encounter [facility] 11-11-2023 Note HNO ID: [id number] Author: LENO LOPEZ RN Service: ? Author Type: Registered Nurse Type: Progress Notes Filed: 11/11/2023 12:02 Note Text: ED Follow-Up Note Provider Action / FYI: Navigation Team: Please contact patient for ED follow up with her provider for chest pain status post injury. Patient seen in ED: In [facility] ED [place] Contact made with Patient: Yes The patient was identified by Name and Date of . Discussed Care with: patient. Patient remains with pain across chest with movement. ED encouraged patient to take deep breaths. Patient also taking Acetaminophen for pain control. Red flag symptoms discussed with patient. Encounter sent to Navigation Team to assist patient with ED follow up appointment. Patient was seen in the Emergency Department (ED) Location: [place] emergency room Date: 11-09-23 Reason for ED Visit: Chest pain ED Intervention: Care Timeline 09 Arrived 0936 ECG COMPLETE EKG 0958 acetaminophen 1000 mg 1028 XR RIBS BILATERAL/CHEST 4V 1152 Discharged Based on body mechanic apprentice, the following disposition is advised: No symptoms or symptoms present, not severe. Routed to: Navigation Team: PCP visit within 48 hours [facility]Z ELENA Education Provided this Outreach: No Leno Lopez RN November 11, 2023 11:56 AM [facility] 11-11-2023 Note Patient Outreach ([facility]) EDISON ALBARRAN ([id number]) 1945 F Date Time Provider Department 11/11/23 LENO LOPEZ [facility] During your visit today, we recorded the following information about you: Leno Lopez, RN 11/11/2023 12:02 PM Signed ED Follow-Up Note Provider Action / FYI: Navigation Team: Please contact patient for ED follow up with her provider for chest pain status post injury. Patient seen in ED: In [facility] ED [place] Contact made with Patient: Yes The patient was identified by Name and Date of . Discussed Care with: patient. Patient remains with pain across chest with movement. ED encouraged patient to take deep breaths. Patient also taking Acetaminophen for pain control. Red flag symptoms discussed with patient. Encounter sent to Navigation Team to assist patient with ED follow up appointment. Patient was seen in the Emergency Department (ED) Location: [place] emergency room Date: 11-09-23 Reason for ED Visit: Chest pain ED Intervention: Care Timeline 0917 Arrived 0936 ECG COMPLETE EKG 0958 acetaminophen 1000 mg 1028 XR RIBS BILATERAL/CHEST 4V 1152 Discharged Based on body mechanic apprentice, the following disposition is advised: No symptoms or symptoms present, not severe. Routed to: Navigation Team: PCP visit within 48 hours [facility] Education Provided this Outreach: No Leno Lopez RN November 11, 2023 11:56 AM [facility] Carina Norotn 11/11/2023 12:26 PM Signed [facility] NAVIGATION OUTREACH Action/ 1st attempt: Left voicemail and sent MyChart to schedule ER follow up. Patient Identified by Name and : NO Outreach Outcome/Action Unable to reach patient: Left message MyChart message sent Did you use a PCP flex slot to schedule this appointment? N/A Reason for Outreach [facility] Payer: Payor: [employer]NA MEDICARE / Plan: [employer] / Product Type: HMO / Care Gap Reviewed:: Follow-up appointment Reminder: Reminder note to check Health Maintenance for items below Health Maintenance items due: BP Controlled (<130/80) due on 04/25/2022 Dilated Retinal Exam due on 08/08/2023 Diabetic Foot Exam due on 09/20/2023 Advance Directive Discussion due on 10/07/2023 Navigation Signature: Carina Do Curryemily [facility] Navigator November 11, 2023 12:25 PM [facility] NavigCarina villeda 11/13/2023 8:58 AM Signed [facility] NAVIGATION OUTREACH Action/ 2nd attempt: Left voicemail to schedule ER follow up. Patient Identified by Name and : NO Outreach Outcome/Action Unable to reach patient: Left message Did you use a PCP flex slot to schedule this appointment? N/A Reason for Outreach [facility] Carina London [facility] Navigator November 13, 2023 8:58 AM Allergies As of Date: 11/11/2023 Noted Allergy Reaction BACTRIM (SULFAMETHOXAZOLE-TRIMETH* 015 14 - Other: See Comments Comments: Unknown. CEPHALEXIN 11/22/2014 14 - Other: See Comments Comments: Unknown. CITALOPRAM 01/05/2020 7 - Swelling Comments: Throat swelled CYMBALTA (DULOXETINE) 01/05/2020 14 - Other: See Comments Comments: Made her feel groggy. 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 - cyanocobalamin (VITAMIN B-12) 500 mcg tablet Take 1 tablet by mouth once daily. - levothyroxine (SYNTHROID) 50 mcg tablet Take 1 tablet by mouth daily before breakfast. Mon-Sat and none on Saturday, Saturday - omeprazole (PRILOSEC) 40 mg capsule Take 1 capsule by mouth two times a day. Take 30-60 minutes before breakfast and dinner on an empty stomach. - atorvastatin (LIPITOR) 40 mg tablet Take 1 tablet by mouth daily at bedtime. For cholesterol. - FLUoxetine (PROZAC) 40 mg capsule Take 1 capsule by mouth once daily. - potassium chloride SR (MICRO-K) 10 mEq CR capsule Take 2 capsules by mouth once daily. - WALKER ROLLATOR SEAT WITH 6 WHEELS - RED Any color is fine and with a basket if available. Dx: Z91.81, M54.40, R20.8, M46.062 and R26.81 - gabapentin (NEURONTIN) 300 mg capsule Take 1 capsule by mouth daily at bedtime for 180 days. - QUEtiapine (SEROQUEL) 25 mg tablet Take 0.5 tablets by mouth daily at bedtime. - gabapentin (NEURONTIN) 300 mg capsule Take 300 mg by mouth daily at bedtime. - mirabegron (MYRBETRIQ) 50 mg Tb24 Take 1 tablet by mouth once daily. - cyclobenzaprine (FLEXERIL) 10 mg tablet Take 1 tablet by mouth every 8 hours as needed for muscle spasm (or pain). - wheat dextrin (BENEFIBER HEALTHY SHAPE) 5 gram/7.4 gram powd Take 2 teaspoonsful by mouth once daily. - amino acids (AMINO ACID ORAL) Take 3 g by mouth once daily. Peptide powder - ZENON (more content not included)... [facility] 11-09-2023 Miscellaneous Notes Reason for Call: pt with severe chest pain, moderate difficulty breathing Outcome: advised to go to ED now, pt is agreeable. Reason for Disposition SEVERE chest or rib pain (e.g., excruciating, unable to do any normal activities) Answer Assessment - Initial Assessment Questions 1. MECHANISM: Sitting on step stool and reached to get something in cupboard 2. ONSET: 11/08/231899 3. LOCATION: right across boobs rib cage 4. CHEST OR RIB PAIN SEVERITY: 810 nothing for pain 5. BREATHING DIFFICULTY: yes, moderate 6: OTHER SYMPTOMS Denies 7. : N/a Protocols used: Chest Injury - Bending, Lifting, or [id number] documented in this encounter [facility] 11-01-2023 Note HNO ID: [id number] Author: LENO LOPEZ RN Service: ? Author Type: Registered Nurse Type: Progress Notes Filed: 11/01/2023 12:11 Note Text: CDM ESCALATION Provider Action / FYI: Message received via: Virtualist Escalation Follow-Up Patient escalated to Virtualist on: 10-31-23 Reason for escalation: headache, neck pain, and fall 2 and a half weeks ago. Virtualist intervention: (R51.9) Headache, unspecified headache type (primary encounter diagnosis) Comment: mild and intermittent. No red signs Plan: moist heat, tylenol and topical cream Contact made with patient: Yes Patient identified by name and date of . Discussed care with patient. Denies headache, dizziness, nausea, vomiting, and visual changes. Alert and oriented and answers questions appropriately. Remains with neck stiffness. Plans on taking a hot shower later which patient states helps. No concerns or complaints at this time. Based on body mechanic apprentice the following disposition is advised: No symptoms or symptoms present, not severe. Routed to: No Action Needed LUZ ELENA Education Provided this Outreach: No Leno Lopez RN November 01, 2023 12:08 PM [facility] 11-01-2023 Note Patient Outreach ([facility]) EDISON ALBARRAN ([id number]) 1945 F Date Time Provider Department 11/01/23 LENO LOPEZ [facility] During your visit today, we recorded the following information about you: Leno Lopez, RN 11/01/2023 12:11 PM Signed CDM ESCALATION Provider Action / FYI: Message received via: Virtualist Escalation Follow-Up Patient escalated to Virtualist on: 10-31-23 Reason for escalation: headache, neck pain, and fall 2 and a half weeks ago. Virtualist intervention: (R51.9) Headache, unspecified headache type (primary encounter diagnosis) Comment: mild and intermittent. No red signs Plan: moist heat, tylenol and topical cream Contact made with patient: Yes Patient identified by name and date of . Discussed care with patient. Denies headache, dizziness, nausea, vomiting, and visual changes. Alert and oriented and answers questions appropriately. Remains with neck stiffness. Plans on taking a hot shower later which patient states helps. No concerns or complaints at this time. Based on body mechanic apprentice the following disposition is advised: No symptoms or symptoms present, not severe. Routed to: No Action Needed LUZ ELENA Education Provided this Outreach: No Leno Lopez RN November 01, 2023 12:08 PM Allergies As of Date: 11/01/2023 Noted Allergy Reaction BACTRIM (SULFAMETHOXAZOLE-TRIMETH* 015 14 - Other: See Comments Comments: Unknown. CEPHALEXIN 11/22/2014 14 - Other: See Comments Comments: Unknown. CITALOPRAM 01/05/2020 7 - Swelling Comments: Throat swelled CYMBALTA (DULOXETINE) 01/05/2020 14 - Other: See Comments Comments: Made her feel groggy. 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 - cyanocobalamin (VITAMIN B-12) 500 mcg tablet Take 1 tablet by mouth once daily. - levothyroxine (SYNTHROID) 50 mcg tablet Take 1 tablet by mouth daily before breakfast. Mon-Sat and none on Saturday, Saturday - omeprazole (PRILOSEC) 40 mg capsule Take 1 capsule by mouth two times a day. Take 30-60 minutes before breakfast and dinner on an empty stomach. - atorvastatin (LIPITOR) 40 mg tablet Take 1 tablet by mouth daily at bedtime. For cholesterol. - FLUoxetine (PROZAC) 40 mg capsule Take 1 capsule by mouth once daily. - potassium chloride SR (MICRO-K) 10 mEq CR capsule Take 2 capsules by mouth once daily. - WALKER ROLLATOR SEAT WITH 6 WHEELS - RED Any color is fine and with a basket if available. Dx: Z91.81, M54.40, R20.8, M46.062 and R26.81 - gabapentin (NEURONTIN) 300 mg capsule Take 1 capsule by mouth daily at bedtime for 180 days. - QUEtiapine (SEROQUEL) 25 mg tablet Take 0.5 tablets by mouth daily at bedtime. - gabapentin (NEURONTIN) 300 mg capsule Take 300 mg by mouth daily at bedtime. - mirabegron (MYRBETRIQ) 50 mg Tb24 Take 1 tablet by mouth once daily. - cyclobenzaprine (FLEXERIL) 10 mg tablet Take 1 tablet by mouth every 8 hours as needed for muscle spasm (or pain). - wheat dextrin (BENEFIBER HEALTHY SHAPE) 5 gram/7.4 gram powd Take 2 teaspoonsful by mouth once daily. - amino acids (AMINO ACID ORAL) Take 3 g by mouth once daily. Peptide powder - VITAMIN E ACETATE ORAL Take 10 mg by mouth once daily. - ascorbic acid (VITAMIN C ORAL) Take 90 mg by mouth once daily. - aspirin, enteric coated (ADULT LOW DOSE ASPIRIN) 81 mg EC tablet Take 1 tablet by mouth once daily. Facility-Administered Medications as of 11/01/2023 - menthol-cetylpyridinium 1 Lozenge (CEPACOL LOZENGES) Problem List As Of Date 11/01/2023 Noted Resolved Osteoporosis [M81.0] 05/26/2015 Essential hypertension [I10] 2015 Mixed hyperlipidemia [E78.2] 2015 Hypothyroidism (acquired) [E03.9] 2015 Smoker [F17.200] 2015 Pain in joint, multiple sites [M25.50] 12/07/2015 Colon cancer screening [Z12.11] 12/07/2015 09/18/2019 Elevated fasting blood sugar [R73.01] 12/07/2015 09/18/2019 Hematuria [R31.9] 12/14/2015 09/18/2019 Bilateral carotid artery disease (HCC) [I77.9] 12/20/2015 09/18/2019 Decreased sensation of lower extremity [R20.8] 01/04/2016 Spinal stenosis, lumbar region, with neurogenic*01/23/2016 Urgency of urination [R39.15] 06/13/2016 Well adult exam [Z00.00] 12/26/2016 09/18/2019 Chronic bilateral low back pain with sciatica [*12/26/2016 Pain in both hands [M79.641, M79.642] 12/26/2016 09/18/2019 Encounter for screening mammogram for breast ca*12/26/2017 09/18/2019 Medicare annual wellness visit, subsequent [Z00*12/26/2017 Recurrent major depressive disorder, in remissi*07/01/2018 Medication management [Z79.899] 12/31/2018 Bilateral carotid artery stenosis [I65.23] 12/20/2015 Hematuria [R31.9] 12/14/2015 Moderate (more content not included)... [facility] 10-31-2023 Note HNO ID: [id number] Author: DESHAWN STODDARD MD Service: ? Author Type: Physician Type: Progress Notes Filed: 10/31/2023 15:42 Note Text: Virtualist Distance Health Note (CDM/TCM//CC HC/H@HCC escalations) I have communicated my name and active licensure. The patient's identity and physical location were verified at the time of this visit. Either the patient or their legal patient service representative has been informed of the risks and benefits of -- and alternatives to -- treatment through a remote evaluation and consents to proceed with the evaluation remotely. 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 She says she did fall forward a few weeks ago (no LOC) and hit her head causing some mild forehead bruising and neck pain. She has no blurred vision or nausea at this time. Her head was better when I called her. She says it is an intermittent sharp pain. She sounded fine and alert when I spoke with her. I advised some topical cream, moist heat and OTC tylenol. Past medical history, past surgical history, family history and social history reviewed and updated. REVIEW OF SYSTEMS: Review of Systems VITAL SIGNS: (if available) There were no vitals taken for this visit. Physical Exam (if video visit was performed) Physical Exam Assessment/Plan: (R51.9) Headache, unspecified headache type (primary encounter diagnosis) Comment: mild and intermittent. No red signs Plan: moist heat, tylenol and topical cream Deshawn Stoddard MD Disposition: Patient remains at home; meds adjusted and / or prescribed A total of 9 minutes was spent providing medical care using telemedicine. Signed in as Primary Virtualist, Secondary Virtualist, or [facility] Telehealth provider: Primary [facility] 10-31-2023 Note HNO ID: [id number] Author: LENO LOPEZ RN Service: ? Author Type: Registered Nurse Type: Progress Notes Filed: 10/31/2023 15:33 Note Text: CDM Telephonic Outreach Provider Action/FYI Patient reports headache across forehead that started when she bent down during our phone call today. Does also report neck pain and bruising to forehead. Patient did have a fall hitting her head on her vanity approximately 2 and a half weeks ago. She reports she was standing on a stool getting medication from her cabinet and fell forward hitting her head. She said at time of fall she did not feel dizzy or her legs did not feel wobbly and denied LOC. Denies dizziness, nausea, vomiting, and visual changes at time of call. Did have vomiting on Saturday which has resolved. Answers questions appropriately. Alert and oriented. Could state name, phone number, and date but was unaware of date and month. She states she needs to look at a calendar everyday so she is aware. Patient did not seek treatment in the ED post fall or notify PCP. Contacted for: Routine Telephonic Outreach Contact made with patient: Yes Patient identified by name and date of . Discussed care with patient Are you experiencing any new or worsening symptoms you need to talk about today? Yes Based on body mechanic apprentice, the following disposition is advised: Sent to [facility]. Time Stamp: 10/31/2023 3:28 PM. Leno Lopez RN October 31, 2023 3:16 PM [facility] 10-31-2023 Note Patient Outreach ([facility]) EDISON ALBARRAN ([id number]) 1945 F Date Time Provider Department 10/31/23 LENO LOPEZ [facility] During your visit today, we recorded the following information about you: Leno Lopez, LILLI 10/31/2023 3:33 PM Addendum CD Telephonic Outreach Provider Action/FYI Patient reports headache across forehead that started when she bent down during our phone call today. Does also report neck pain and bruising to forehead. Patient did have a fall hitting her head on her vanity approximately 2 and a half weeks ago. She reports she was standing on a stool getting medication from her cabinet and fell forward hitting her head. She said at time of fall she did not feel dizzy or her legs did not feel wobbly and denied LOC. Denies dizziness, nausea, vomiting, and visual changes at time of call. Did have vomiting on Saturday which has resolved. Answers questions appropriately. Alert and oriented. Could state name, phone number, and date but was unaware of date and month. She states she needs to look at a calendar everyday so she is aware. Patient did not seek treatment in the ED post fall or notify PCP. Contacted for: Routine Telephonic Outreach Contact made with patient: Yes Patient identified by name and date of . Discussed care with patient Are you experiencing any new or worsening symptoms you need to talk about today? Yes Based on body mechanic apprentice, the following disposition is advised: Sent to virtualist. Time Stamp: 10/31/2023 3:28 PM. Leno Lopez RN October 31, 2023 3:16 PM Allergies As of Date: 10/31/2023 Noted Allergy Reaction BACTRIM (SULFAMETHOXAZOLE-TRIMETH* 015 14 - Other: See Comments Comments: Unknown. CEPHALEXIN 11/22/2014 14 - Other: See Comments Comments: Unknown. CITALOPRAM 01/05/2020 7 - Swelling Comments: Throat swelled CYMBALTA (DULOXETINE) 01/05/2020 14 - Other: See Comments Comments: Made her feel groggy. Date Reviewed: 09/26/2023 Reviewed by: Kurt Saravia MD - Fully Assessed Reason for Visit: CDM [Other] Cmt: Telephonic Outreach Prescriptions as of 10/31/2023 - donepezil (ARICEPT) 5 mg tablet Take 1 tablet by mouth daily with breakfast. - cyanocobalamin (VITAMIN B-12) 500 mcg tablet Take 1 tablet by mouth once daily. - levothyroxine (SYNTHROID) 50 mcg tablet Take 1 tablet by mouth daily before breakfast. Mon-Sat and none on Saturday, Saturday - omeprazole (PRILOSEC) 40 mg capsule Take 1 capsule by mouth two times a day. Take 30-60 minutes before breakfast and dinner on an empty stomach. - atorvastatin (LIPITOR) 40 mg tablet Take 1 tablet by mouth daily at bedtime. For cholesterol. - FLUoxetine (PROZAC) 40 mg capsule Take 1 capsule by mouth once daily. - potassium chloride SR (MICRO-K) 10 mEq CR capsule Take 2 capsules by mouth once daily. - WALKER ROLLATOR SEAT WITH 6 WHEELS - RED Any color is fine and with a basket if available. Dx: Z91.81, M54.40, R20.8, M46.062 and R26.81 - gabapentin (NEURONTIN) 300 mg capsule Take 1 capsule by mouth daily at bedtime for 180 days. - QUEtiapine (SEROQUEL) 25 mg tablet Take 0.5 tablets by mouth daily at bedtime. - gabapentin (NEURONTIN) 300 mg capsule Take 300 mg by mouth daily at bedtime. - mirabegron (MYRBETRIQ) 50 mg Tb24 Take 1 tablet by mouth once daily. - cyclobenzaprine (FLEXERIL) 10 mg tablet Take 1 tablet by mouth every 8 hours as needed for muscle spasm (or pain). - wheat dextrin (BENEFIBER HEALTHY SHAPE) 5 gram/7.4 gram powd Take 2 teaspoonsful by mouth once daily. - amino acids (AMINO ACID ORAL) Take 3 g by mouth once daily. Peptide powder - VITAMIN E ACETATE ORAL Take 10 mg by mouth once daily. - ascorbic acid (VITAMIN C ORAL) Take 90 mg by mouth once daily. - aspirin, enteric coated (ADULT LOW DOSE ASPIRIN) 81 mg EC tablet Take 1 tablet by mouth once daily. Facility-Administered Medications as of 10/31/2023 - menthol-cetylpyridinium 1 Lozenge (CEPACOL LOZENGES) Problem List As Of Date 10/31/2023 Noted Resolved Osteoporosis [M81.0] 05/26/2015 Essential hypertension [I10] 2015 Mixed hyperlipidemia [E78.2] 2015 Hypothyroidism (acquired) [E03.9] 2015 Smoker [F17.200] 2015 Pain in joint, multiple sites [M25.50] 12/07/2015 Colon cancer screening [Z12.11] 12/07/2015 09/18/2019 Elevated fasting blood sugar [R73.01] 12/07/2015 09/18/2019 Hematuria [R31.9] 12/14/2015 09/18/2019 Bilateral carotid artery disease (HCC) [I77.9] 12/20/2015 09/18/2019 Decreased sensation of lower extremity [R20.8] 01/04/2016 Spinal stenosis, lumbar region, with neurogenic*01/23/2016 Urgency of urination [R39.15] 06/13/2016 Well adult exam [Z00.00] 12/26/2016 09/18/2019 Chronic bilateral low back pain with sciatica [*12/26/2016 Pain in both hands [M79.641, M79.642] 12/26/2016 09/18/2019 Encounter for screening ma (more content not included)... [facility] 10-03-2023 Note HNO ID: [id number] Author: Leno Lopez, RN Service: ? Author Type: Registered Nurse Type: Progress Notes Filed: 10/03/2023 3:17 PM Note Text: [facility] Telephonic Outreach Provider Action/FYI Contacted for: Routine Telephonic Outreach Contact made with patient: Yes Patient identified by name and date of . Discussed care with patient Are you experiencing any new or worsening symptoms you need to talk about today? No Disease Specific Do you check your blood pressure at home? No Do you have new or worsening shortness of breath with activity? No Do you feel like you are dehydrated for any reason, including not being able to eat or drink normally, or having less urine/much darker urine than normal for you? No Do you check your daily weight at home? Yes, Have you noticed a sudden gain in weight greater than three pounds in a day or three pounds in a week? 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 Routed to: No Action Needed LUZ ELENA Education Provided this Outreach: No Leno Lopez RN October 03, 2023 3:15 PM [facility] 10-03-2023 Note Patient Outreach ([facility]) EDISON ALBARRAN ([id number]) 1945 F Date Time Provider Department 10/03/23 [facility] During your visit today, we recorded the following information about you: Leno Lopez, RN 10/03/2023 3:17 PM Signed [facility] Telephonic Outreach Provider Action/FYI Contacted for: Routine Telephonic Outreach Contact made with patient: Yes Patient identified by name and date of . Discussed care with patient Are you experiencing any new or worsening symptoms you need to talk about today? No Disease Specific Do you check your blood pressure at home? No Do you have new or worsening shortness of breath with activity? No Do you feel like you are dehydrated for any reason, including not being able to eat or drink normally, or having less urine/much darker urine than normal for you? No Do you check your daily weight at home? Yes, Have you noticed a sudden gain in weight greater than three pounds in a day or three pounds in a week? 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 Routed to: No Action Needed LUZ ELENA Education Provided this Outreach: No Leno Lopez RN October 03, 2023 3:15 PM Allergies As of Date: 10/03/2023 Noted Allergy Reaction BACTRIM (SULFAMETHOXAZOLE-TRIMETH* 015 14 - Other: See Comments Comments: Unknown. CEPHALEXIN 11/22/2014 14 - Other: See Comments Comments: Unknown. CITALOPRAM 01/05/2020 7 - Swelling Comments: Throat swelled CYMBALTA (DULOXETINE) 01/05/2020 14 - Other: See Comments Comments: Made her feel groggy. Date Reviewed: 09/26/2023 Reviewed by: Kurt Saravia MD - Fully Assessed Reason for Visit: CDM [Other] Cmt: Telephonic Outreach Prescriptions as of 10/03/2023 - donepezil (ARICEPT) 5 mg tablet Take 1 tablet by mouth daily with breakfast. - cyanocobalamin (VITAMIN B-12) 500 mcg tablet Take 1 tablet by mouth once daily. - levothyroxine (SYNTHROID) 50 mcg tablet Take 1 tablet by mouth daily before breakfast. Mon-Fri and none on Saturday, Saturday - omeprazole (PRILOSEC) 40 mg capsule Take 1 capsule by mouth two times a day. Take 30-60 minutes before breakfast and dinner on an empty stomach. - atorvastatin (LIPITOR) 40 mg tablet Take 1 tablet by mouth daily at bedtime. For cholesterol. - FLUoxetine (PROZAC) 40 mg capsule Take 1 capsule by mouth once daily. - potassium chloride SR (MICRO-K) 10 mEq CR capsule Take 2 capsules by mouth once daily. - WALKER ROLLATOR SEAT WITH 6 WHEELS - RED Any color is fine and with a basket if available. Dx: Z91.81, M54.40, R20.8, M46.062 and R26.81 - gabapentin (NEURONTIN) 300 mg capsule Take 1 capsule by mouth daily at bedtime for 180 days. - QUEtiapine (SEROQUEL) 25 mg tablet Take 0.5 tablets by mouth daily at bedtime. - gabapentin (NEURONTIN) 300 mg capsule Take 300 mg by mouth daily at bedtime. - mirabegron (MYRBETRIQ) 50 mg Tb24 Take 1 tablet by mouth once daily. - cyclobenzaprine (FLEXERIL) 10 mg tablet Take 1 tablet by mouth every 8 hours as needed for muscle spasm (or pain). - wheat dextrin (BENEFIBER HEALTHY SHAPE) 5 gram/7.4 gram powd Take 2 teaspoonsful by mouth once daily. - amino acids (AMINO ACID ORAL) Take 3 g by mouth once daily. Peptide powder - VITAMIN E ACETATE ORAL Take 10 mg by mouth once daily. - ascorbic acid (VITAMIN C ORAL) Take 90 mg by mouth once daily. - aspirin, enteric coated (ADULT LOW DOSE ASPIRIN) 81 mg EC tablet Take 1 tablet by mouth once daily. Facility-Administered Medications as of 10/03/2023 - menthol-cetylpyridinium 1 Lozenge (CEPACOL LOZENGES) Problem List As Of Date 10/03/2023 Noted Resolved Osteoporosis [M81.0] 05/26/2015 Essential hypertension [I10] 2015 Mixed hyperlipidemia [E78.2] 2015 Hypothyroidism (acquired) [E03.9] 2015 Smoker [F17.200] 2015 Pain in joint, multiple sites [M25.50] 12/07/2015 Colon cancer screening [Z12.11] 12/07/2015 09/18/2019 Elevated fasting blood sugar [R73.01] 12/07/2015 09/18/2019 Hematuria [R31.9] 12/14/2015 09/18/2019 Bilateral carotid artery disease (HCC) [I77.9] 12/20/2015 09/18/2019 Decreased sensation of lower extremity [R20.8] 01/04/2016 Spinal stenosis, lumbar region, with neurogenic*01/23/2016 Urgency of urination [R39.15] 06/13/2016 Well adult exam [Z00.00] 12/26/2016 09/18/2019 Chronic bilateral low back pain with sciatica [*12/26/2016 Pain in both hands [M79.641, M79.642] 12/26/2016 09/18/2019 Encounter for screening mammogram for breast ca*12/26/2017 09/18/2019 Medicare annual wellness visit, subsequent [Z00*12/26/2017 Recurrent major depressive disorder, in remissi*07/01/2018 Medication management [Z79.899] 12/31/2018 Bilateral carotid artery stenosis [I65.23] 12/20/2015 Hematuria [R31.9] 12/14/2015 Moderate aortic insufficiency [I35.1] 01/19/2020 (more content not included)... [facility] 09-25-2023 History of Present illness Narrative Chief Complaint Patient presents with: F/U 6 months HPI Edison Albarran is a 78 year old female who presents here today for 6 month follow up. Patient has not been getting dyspepsia nausea or vomiting. Patient is smoking about 1/2 PPD. Her son back in Jul 2023. Any new concerns today? None Any recent ER/hospital visits? None Patient sees gastro - Dr. Hill - last visit 04/2023 Eye exam? [facility] Patient never went to see vascular to eval her possible dilated subclavian artery back in 11/2022. Patient saw [employer] Back in 04/2023 and was to have a f/u appt and missed it the day prior to the passing of her son. Since his she does not drive any further then [facility] therefore needs a neurologist in the area. The gabapentin still helping her joint pain. Past medical history, appointments, medications, allergies reviewed. Previous Medical History PAST MEDICAL HISTORY Diagnosis Date Advance directive discussed with patient 03/21/202203/2022 Agitation 02/02/2020 Aneurysm of right subclavian artery (HCC) At risk for falling 04/12/2023 Bilateral carotid artery disease (HCC) 12/20/2015 US 12/2015: 20-40% on Rt and 40-60% on left. US 01/2017 unchanged. Chronic bilateral low back pain with sciatica 12/26/2016 Constipation 07/09/2018 after starting lipitor Decreased sensation of lower extremity 01/04/2016 Dementia without behavioral disturbance (HCC) 12/20/2022 Diabetic eye exam (HCC) 09/24/2022 Last done 08/08/22 Essential hypertension 2015 Essential tremor 09/18/2021 Ex-smoker 2015 1/2-1 PPD since early 50s, quit January 2018 Failure to thrive in adult 03/02/2023 Hematuria 12/14/2015 Urology w/u neg. Hypothyroidism (acquired) 2015 Living will on file 03/21/2022 DPA; Casey (son) Lymphocytic colitis 05/16/2020 Possibly Zoloft related. Mediastinal lymphadenopathy 08/04/2018 Prominent Mediastinal lymphadenopathy noted on CT 08/01/18. CT 01/05/2019 no mediastinal lymphadenopathy Mixed hyperlipidemia 2015 Moderate aortic insufficiency 01/19/[address] Cordoba Osteoporosis 05/26/2015 Pain in both hands 12/26/2016 Pain in joint, multiple sites 12/07/2015 On neurontin Recurrent major depressive disorder, in remission (HCC) 07/01/2018 Spinal stenosis, lumbar region, with neurogenic claudication 01/23/2016 Stage 3a chronic kidney disease (HCC) 09/20/2022 Type 2 diabetes mellitus with stage 3a chronic kidney disease (HCC) 09/20/2022 Type 2 diabetes mellitus without complication, without long-term current use of insulin (HCC) 12/07/2015 Unsteady gait 03/06/2023 Urgency of urination 06/13/2016 Previous Surgical History PAST SURGICAL HISTORY Procedure Laterality Date 2D ECHO (EXEP) 09/2020 EF=64%, Mild Noe dysf and La enlargment, 2+ AR CARPAL TUNNEL RIGHT WRIST COLONOSCOPY 2010 repeat 10 yrs COLONOSCOPY FLX DX W/COLLJ SPEC WHEN PFRMD 04/21/2020 Colonoscopy CORRECTION OF BUNION Left ESOPHAGOGASTRODUODENOSCOPY TRANSORAL DIAGNOSTIC 04/21/2020 EGD FECAL OCCULT BLOOD TEST 01/01/2018 negative HYSTERECTOMY HX 1970 one ovary removed LEXISCAN STRESS TEST 11/21/2020 negative PAST SURGICAL HISTORY OF 1972 appendectomy PAST SURGICAL HISTORY OF 1987 breast lump, benign STRESS TEST 07/09/2016 WNL TUMOR REMOVAL (SPECIFY LOCATION) HX 2001 stomach Family History FAMILY HISTORY Problem Relation Age of Onset Breast Cancer Mother over 50 Hypertension Mother Lipids Mother Osteoporosis Mother Thyroid Mother Cancer Father stomach Cancer Brother lung Alzheimer's Disease Brother dementia Diabetes Brother Patient Allergies ALLERGIES Allergen Reactions Bactrim [Sulfametho* Other: See Comments Unknown. Cephalexin Other: See Comments Unknown. Citalopram Swelling Throat swelled Cyanushaalta [Duloxetin* Other: See Comments Made her feel groggy. Current Medications Current Outpatient Medications on File Prior to Visit Medication Sig omeprazole (PRILOSEC) 40 mg capsule Take 1 capsule by mouth two times a day. Take 30-60 minutes before breakfast and dinner on an empty stomach. atorvastatin (LIPITOR) 40 mg tablet Take 1 tablet by mouth daily at bedtime. For cholesterol. FLUoxetine (PROZAC) 40 mg capsule Take 1 capsule by mouth once daily. potassium chloride SR (MICRO-K) 10 mEq CR capsule Take 2 capsules by mouth once daily. donepezil (ARICEPT) 5 mg tablet Take 1 tablet by mouth daily with breakfast. WALKER ROLLATOR SEAT WITH 6 WHEELS - RED Any color is fine and with a basket if available. Dx: Z91.81, M54.40, R20.8, M46.062 and R26.81 gabapentin (NEURONTIN) 300 mg capsule Take 1 capsule by mouth daily at bedtime for 180 days. QUEtiapine (SEROQUEL) 25 mg tablet Take 0.5 tablets by mouth daily at bedtime. cyanocobalamin (VITAMIN B-12) 500 mcg tablet Take 1 tablet by mouth once daily. gabapentin (NEURONTIN) 300 mg capsule Take 300 mg by mouth daily at bedtime. levothyroxine (SYNTHROID) 50 mcg tablet Take 1 tablet by mouth daily before breakfast. Mon-Sat and none on Saturday, Saturday mirabegron (MYRBETRIQ) 50 mg Tb24 Take 1 tablet by mouth once daily. cyclobenzaprine (FLEXERIL) 10 mg tablet Take 1 tablet by mouth every 8 hours as needed for muscle spasm (or pain). wheat dextrin (BENEFIBER HEALTHY SHAPE) 5 gram/7.4 gram powd Take 2 teaspoonsful by mouth once daily. amino acids (AMINO ACID ORAL) Take 3 g by mouth once daily. Peptide powder VITAMIN E ACETATE ORAL Take 10 mg by mouth once daily. ascorbic acid (VITAMIN C ORAL) Take 90 mg by mouth once daily. aspirin, enteric coated (ADULT LOW DOSE ASPIRIN) 81 mg EC tablet Take 1 tablet by mouth once daily. Current Facility-Administered Medications on File Prior to Visit Medication menthol-cetylpyridinium 1 Lozenge (CEPACOL LOZENGES) Social History Social History Tobacco Use Smoking status: Some Days Packs/day: .5 Types: Cigarettes Smokeless tobacco: Never Tobacco comments: Roughly one pack per week Vaping Use Vaping Use: Never used Substance Use Topics Alcohol use: Not Currently Drug use: Never Review of Symptoms REVIEW OF SYSTEMS GENERAL: No weight loss, malaise or fevers NECK: Negative for lumps, goiter, pain and significant neck swelling RESPIRATORY: Negative for cough, hemoptysis, wheezing, COPD, dyspnea or shortness of breath CARDIOVASCULAR: Negative for chest pain, leg swelling, hypertension, CHF or palpitations GI: No nausea, vomiting, or diarrhea and No heartburn or reflux symptoms PSYCH: Negative for sleep disturbance, mood disorder and recent psychosocial stressors NEURO: No history of frequent headaches, syncope, paralysis, seizures or tremors EXAM: BP 146/86 (BP Site: Right Arm, BP Position: Sitting, BP Cuff Size: Regular Adult) Pulse 64 Resp 16 Wt 46.3 kg (102 lb) BMI 19.92 kg/m BP 122/80 Pulse 64 Resp 16 Wt 46.3 kg (102 lb) BMI 19.92 kg/m Last 5 Encounter Wt Readings: Date: Wt: 09/25/2023 46.3 kg (102 lb) 08/23/2023 44.9 kg (99 lb) 07/15/2023 44.1 kg (97 lb 2 oz) 04/19/2023 43.1 kg (95 lb) 04/16/2023 42.6 kg (94 lb) General Appearance: Well appearing, alert, in no acute distress, well-hydrated, well nourished. and Thin. Eyes: Anicteric sclera. Pupils are equally round. Extraocular movements are intact. . Neck: Supple, no adenopathy; thyroid symmetric, normal size, no bruits. Lungs: Lungs clear to auscultation. No wheezing, rhonchi, rales.. Heart: RRR without murmur, gallop, or rubs. No ectopy. Abdomen: Normal abdominal exam, Abdomen soft, non-tender. Bowel sounds normal. No masses, organomegaly. Extremities: No deformities, edema, skin discoloration, Good capillary refill. . Musculoskeletal: no gross deficiencies. . Peripheral Pulses: Normal. Neurologic: Gait normal. Sensation grossly intact.. Health Maintenance List RSV Vaccine(1 - 1-dose 60+ series) Never done Shingrix Vaccine(2 of 2) due on 08/07/2022 Dilated Retinal Exam due on 08/08/2023 HbA1C due on 09/20/2023 Urine Albumin:Creatinine Ratio due on 09/13/2023 Diabetic Foot Exam due on 09/20/2023 LDL Cholesterol due on 03/21/2024 Serum Creatinine due on 08/06/2024 Hemoglobin/Hematocrit due on 08/06/2024 Annual PCP Team Chronic Disease Visit due on 08/23/2024 BP Controlled (<130/80) due on 08/23/2024 DTaP,Tdap,Td Vaccine(3 - Td or Tdap) due on 05/29/2028 Bone Density Screening Completed Influenza Vaccine Completed Advance Directive Discussion Completed Covid-19 Vaccine Completed Pneumococcal Vaccine: 65+ Completed Colorectal Cancer Screening Discontinued Data reviewed Component Latest Ref Rng & Units 03/21/2023 08/06/2023 WBC 3.70 - 11.00 k/uL 6.90 RBC 3.90 - 5.20 m/uL 4.00 Hemoglobin 11.5 - 15.5 g/dL 11.9 Hematocrit 36.0 - 46.0 % 37.1 MCV 80.0 - 100.0 fL 92.8 MCH 26.0 - 34.0 pg 29.8 MCHC 30.5 - 36.0 g/dL 32.1 RDW-CV 11.5 - 15.0 % 13.3 Platelet Count 150 - 400 k/uL 235 MPV 9.0 - 12.7 fL 9.7 Neut% % 63.3 Abs Neut (ANC) 1.45 - 7.50 k/uL 4.37 Lymph% % 25.8 Abs Lymph 1.00 - 4.00 k/uL 1.78 Hooker% % 8.6 Abs Hooker <0.87 k/uL 0.59 Eosin% % 1.2 Abs Eosin <0.46 k/uL 0.08 Baso% % 0.7 Abs Baso <0.11 k/uL 0.05 Immature Gran % % 0.4 IMMATURE GRANS (ABS) <0.10 k/uL 0.03 NRBC /100 WBC 0.0 Absolute nRBC <0.01 k/uL <0.01 DTYPE Auto Protein, Total 6.3 - 8.0 g/dL 6.0 (L) Albumin 3.9 - 4.9 g/dL 3.9 Calcium 8.5 - 10.2 mg/dL 9.4 9.6 Bilirubin, Total 0.2 - 1.3 mg/dL 0.4 Alkaline Phosphatase 34 - 123 U/L 110 AST 13 - 35 U/L 24 ALT 7 - 38 U/L 14 Glucose 74 - 99 mg/dL 124 (H) 97 BUN 7 - 21 mg/dL 6 (L) 9 Creatinine 0.58 - 0.96 mg/dL 1.00 (H) 0.99 (H) Sodium 136 - 144 mmol/L 137 138 Potassium 3.7 - 5.1 mmol/L 4.5 4.3 Chloride 97 - 105 mmol/L 100 101 CO2 22 - 30 mmol/L 25 28 Anion Gap 9 - 18 mmol/L 12 9 eGFR >=60 mL/min/1.73m 58 (L) 58 (L) Total Cholesterol, Nonfasting <200 mg/dL 107 Triglycerides, Nonfasting <150 mg/dL 94 HDL Cholesterol, Nonfasting >39 mg/dL 38 (L) LDL Cholesterol, Nonfasting <100 mg/dL 50 Non HDL Cholesterol, Nonfasting <130 mg/dL 69 VLDL Cholesterol, Nonfasting <30 mg/dL 19 Total Chol/HDL Ratio, Nonfasting <5.10 mg/dL 2.82 LDL/HDL Ratio, Nonfasting <2.54 mg/dL 1.32 Hemoglobin A1C 4.3 - 5.6 % 5.5 Estimated Average Glucose mg/dL 111 TSH 0.270 - 4.200 mIU/L 0.439 A/P ASSESSMENT/PLAN: 1. Type 2 diabetes mellitus with stage 3a chronic kidney disease, without long-term current use of insulin ([facility]) - ICD9: 250.40, 585.3, ICD10: E11.22, N18.31 (primary diagnosis) - has been well controlled await labs. - Counseled on healthy diet and regular exercise - managed via life style. Check - LIPID PANEL, NONFASTING - HGB A1C 2. Diabetic eye exam (HCC) - ICD9: V72.0, 250.00, ICD10: Z01.00, E11.9 - will get most recent report 3. Essential hypertension - ICD9: 401.9, ICD10: I10 - Controlled - Continue current medications - Recommend home blood pressure monitoring, to bring results to next visit - Encouraged sodium restriction, DASH or Mediterranean diet - Recommend regular aerobic exercise - LIPID PANEL, NONFASTING 4. Mixed hyperlipidemia - ICD9: 272.2, ICD10: E78.2 - Controlled - Counseled on healthy diet and regular exercise - LIPID PANEL, NONFASTING 5. Hypothyroidism (acquired) - ICD9: 244.9, ICD10: E03.9 - Instructed patient on importance of taking on an empty stomach either first thing in the morning or at bedtime. - continue current dose of Synthroid Check - TSH BLD 6. Bilateral carotid artery stenosis - ICD9: 433.10, 433.30, ICD10: I65.23 Check - US CAROTID ARTERIES [facility]: if subclavian showing dilation will get set up with Vascular. 7. Moderate aortic insufficiency - ICD9: 424.1, ICD10: I35.1 - clinically stable 8. Stage 3a chronic kidney disease (HCC) - ICD9: 585.3, ICD10: N18.31 - most recent labs were ok. 9. Recurrent major depressive disorder, in remission (HCC) - ICD9: 296.35, ICD10: F33.40 - stale with current Tx. 10. Agitation - ICD9: 307.9, ICD10: R45.1 - as per #9 11. Dementia without behavioral disturbance (HCC) - ICD9: 294.20, ICD10: F03.90 - will refill the Aricept. Patient needs to get neuro locally. Without having son present any longer will not drive to main campus. 12. Essential tremor - ICD9: 333.1, ICD10: G25.0 - stable 13. Smoker - ICD9: 305.1, ICD10: F17.200 - Cessation encouraged. - Counseling was given focusing on the harmful effects of this addiction especially given the patient's medical condition(s) which will be worsened because of the chemicals in tobacco. 14. Pain in joint, multiple sites - ICD9: 719.49, ICD10: M25.50 - cont Neurontin. 15. Gastroesophageal reflux disease without esophagitis - ICD9: 530.81, ICD10: K21.9 - Continue treatment with Prilosec 40 mg every day and seeing gastro. Requested Prescriptions Signed Prescriptions Disp Refills donepezil (ARICEPT) 5 mg tablet 90 tablet 0 Sig: Take 1 tablet by mouth daily with breakfast. cyanocobalamin (VITAMIN B-12) 500 mcg tablet 90 tablet 1 Sig: Take 1 tablet by mouth once daily. levothyroxine (SYNTHROID) 50 mcg tablet 90 tablet 1 Sig: Take 1 tablet by mouth daily before breakfast. Sat-Sat and none on Saturday, Saturday F/u 6 months extensive check CMP, Lipid, UA, urine micro albumin, A1c, CBC, B12, Mg TSH prior. I spent a total of 40 minutes on the date of the service which included preparing to see the patient, [id number] patient care, completing clinical documentation, performing a medically appropriate examination, counseling and educating the patient/family/caregiver and ordering medications, tests, or procedures. Kurt Saravia MD documented in this encounter [facility] 09-25-2023 Note HNO ID: [id number] Author: Kurt Saravia MD Service: ? Author Type: Physician Type: Progress Notes Filed: 09/26/2023 9:36 AM Note Text: Chief Complaint Patient presents with: F/U 6 months HPI Edison Albarran is a 78 year old female who presents here today for 6 month follow up. Patient has not been getting dyspepsia nausea or vomiting. Patient is smoking about 1/2 PPD. Her son back in Jul 2023. Any new concerns today? None Any recent ER/hospital visits? None Patient sees gastro - Dr. Hill - last visit 04/2023 Eye exam? [facility] Patient never went to see vascular to eval her possible dilated subclavian artery back in 11/2022. Patient saw [employer] Back in 04/2023 and was to have a f/u appt and missed it the day prior to the passing of her son. Since his she does not drive any further then [facility] therefore needs a neurologist in the area. The gabapentin still helping her joint pain. Past medical history, appointments, medications, allergies reviewed. Previous Medical History PAST MEDICAL HISTORY Diagnosis Date Advance directive discussed with patient 03/21/202203/2022 Agitation 02/02/2020 Aneurysm of right subclavian artery (HCC) At risk for falling 04/12/2023 Bilateral carotid artery disease (HCC) 12/20/2015 US 12/2015: 20-40% on Rt and 40-60% on left. US 01/2017 unchanged. Chronic bilateral low back pain with sciatica 12/26/2016 Constipation 07/09/2018 after starting lipitor Decreased sensation of lower extremity 01/04/2016 Dementia without behavioral disturbance ([facility]) 12/20/2022 Diabetic eye exam ([facility]) 09/24/2022 Last done 08/08/22 Essential hypertension 2015 Essential tremor 09/18/2021 Ex-smoker 2015 1/2-1 PPD since early 50's, quit January 2018 Failure to thrive in adult 03/02/2023 Hematuria 12/14/2015 Urology w/u neg. Hypothyroidism (acquired) 2015 Living will on file 03/21/2022 DPA; Casey (son) Lymphocytic colitis 05/16/2020 Possibly Zoloft related. Mediastinal lymphadenopathy 08/04/2018 Prominent Mediastinal lymphadenopathy noted on CT 08/01/18. CT 01/05/2019 no mediastinal lymphadenopathy Mixed hyperlipidemia 2015 Moderate aortic insufficiency 01/19/[address] Cordoba Osteoporosis 05/26/2015 Pain in both hands 12/26/2016 Pain in joint, multiple sites 12/07/2015 On neurontin Recurrent major depressive disorder, in remission ([facility]) 07/01/2018 Spinal stenosis, lumbar region, with neurogenic claudication 01/23/2016 Stage 3a chronic kidney disease ([facility]) 09/20/2022 Type 2 diabetes mellitus with stage 3a chronic kidney disease ([facility]) 09/20/2022 Type 2 diabetes mellitus without complication, without long-term current use of insulin ([facility]) 12/07/2015 Unsteady gait 03/06/2023 Urgency of urination 06/13/2016 Previous Surgical History PAST SURGICAL HISTORY Procedure Laterality Date 2D ECHO (EXEP) 09/2020 EF=64%, Mild Noe dysf and La enlargment, 2+ AR CARPAL TUNNEL RIGHT WRIST COLONOSCOPY 2010 repeat 10 yrs COLONOSCOPY FLX DX W/COLLJ SPEC WHEN PFRMD 04/21/2020 Colonoscopy CORRECTION OF BUNION Left ESOPHAGOGASTRODUODENOSCOPY TRANSORAL DIAGNOSTIC 04/21/2020 EGD FECAL OCCULT BLOOD TEST 01/01/2018 negative HYSTERECTOMY HX 1970 one ovary removed LEXISCAN STRESS TEST 11/21/2020 negative PAST SURGICAL HISTORY OF 1972 appendectomy PAST SURGICAL HISTORY OF 1987 breast lump, benign STRESS TEST 07/09/2016 WNL TUMOR REMOVAL (SPECIFY LOCATION) HX 2002 stomach Family History FAMILY HISTORY Problem Relation Age of Onset Breast Cancer Mother over 50 Hypertension Mother Lipids Mother Osteoporosis Mother Thyroid Mother Cancer Father stomach Cancer Brother lung Alzheimer's Disease Brother dementia Diabetes Brother Patient Allergies ALLERGIES Allergen Reactions Bactrim [Sulfametho* Other: See Comments Unknown. Cephalexin Other: See Comments Unknown. Citalopram Swelling Throat swelled Cymbalta [Duloxetin* Other: See Comments Made her feel groggy. Current Medications Current Outpatient Medications on File Prior to Visit Medication Sig omeprazole (PRILOSEC) 40 mg capsule Take 1 capsule by mouth two times a day. Take 30-60 minutes before breakfast and dinner on an empty stomach. atorvastatin (LIPITOR) 40 mg tablet Take 1 tablet by mouth daily at bedtime. For cholesterol. FLUoxetine (PROZAC) 40 mg capsule Take 1 capsule by mouth once daily. potassium chloride SR (MICRO-K) 10 mEq CR capsule Take 2 capsules by mouth once daily. donepezil (ARICEPT) 5 mg tablet Take 1 tablet by mouth daily with breakfast. WALKER ROLLATOR SEAT WITH 6 WHEELS - RED Any color is fine and with a basket if available. Dx: Z91.81, M54.40, R20.8, M46.062 and R26.81 gabapentin (NEURONTIN) 300 mg capsule Take 1 capsule by mouth daily at bedtime for 180 days. QUEtiapine (SEROQUEL) 25 mg tablet Take 0.5 tablets by mouth daily at (more content not included)... [facility] 08-28-2023 Note HNO ID: [id number] Author: Leno Lopez RN Service: ? Author Type: Registered Nurse Type: Progress Notes Filed: 08/28/2023 1:53 PM Note Text: CDM Telephonic Outreach Provider Action/FYI Falls/ADLs updated. Contacted for: Routine Telephonic Outreach Contact made with patient: Yes Patient identified by name and date of . Discussed care with patient. Did report she experiences intermittent dizziness she feels is related to moving her head to fast otherwise no new concerns or complaints. Are you experiencing any new or worsening symptoms you need to talk about today? No Disease Specific Do you check your blood pressure at home? No Do you have new or worsening shortness of breath with activity? No Do you feel like you are dehydrated for any reason, including not being able to eat or drink normally, or having less urine/much darker urine than normal for you? No Do you check your daily weight at home? Yes, Have you noticed a sudden gain in weight greater than three pounds in a day or three pounds in a week? 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 Routed to: No Action Needed LUZ ELENA Education Provided this Outreach: No Leno Lopez RN August 28, 2023 1:49 PM [facility] 08-28-2023 History of Present illness Narrative [facility] Telephonic Outreach Provider Action/FYI Falls/ADLs updated. Contacted for: Routine Telephonic Outreach Contact made with patient: Yes Patient identified by name and date of . Discussed care with patient. Did report she experiences intermittent dizziness she feels is related to moving her head to fast otherwise no new concerns or complaints. Are you experiencing any new or worsening symptoms you need to talk about today? No Disease Specific Do you check your blood pressure at home? No Do you have new or worsening shortness of breath with activity? No Do you feel like you are dehydrated for any reason, including not being able to eat or drink normally, or having less urine/much darker urine than normal for you? No Do you check your daily weight at home? Yes, Have you noticed a sudden gain in weight greater than three pounds in a day or three pounds in a week? 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 Routed to: No Action Needed LUZ ELENA Education Provided this Outreach: No Leno Lopez RN August 28, 2023 1:49 PM documented in this encounter [facility] 08-28-2023 Note Patient Outreach ([facility] EDISON ALBARRAN ([id number]) 1945 F Date Time Provider Department 08/28/23 LENO LOPEZDiana During your visit today, we recorded the following information about you: Leno Lopez, RN 08/28/2023 1:53 PM Signed CDM Telephonic Outreach Provider Action/FYI Falls/ADLs updated. Contacted for: Routine Telephonic Outreach Contact made with patient: Yes Patient identified by name and date of . Discussed care with patient. Did report she experiences intermittent dizziness she feels is related to moving her head to fast otherwise no new concerns or complaints. Are you experiencing any new or worsening symptoms you need to talk about today? No Disease Specific Do you check your blood pressure at home? No Do you have new or worsening shortness of breath with activity? No Do you feel like you are dehydrated for any reason, including not being able to eat or drink normally, or having less urine/much darker urine than normal for you? No Do you check your daily weight at home? Yes, Have you noticed a sudden gain in weight greater than three pounds in a day or three pounds in a week? 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 Routed to: No Action Needed LUZ ELENA Education Provided this Outreach: No Leno Lopez RN August 28, 2023 1:49 PM Allergies As of Date: 08/28/2023 Noted Allergy Reaction BACTRIM (SULFAMETHOXAZOLE-TRIMETH* 015 14 - Other: See Comments Comments: Unknown. CEPHALEXIN 11/22/2014 14 - Other: See Comments Comments: Unknown. CITALOPRAM 01/05/2020 7 - Swelling Comments: Throat swelled CYMBALTA (DULOXETINE) 01/05/2020 14 - Other: See Comments Comments: Made her feel groggy. Date Reviewed: 08/23/2023 Reviewed by: Kurt Saravia MD - Fully Assessed Reason for Visit: CDM [Other] Cmt: Telephonic Outreach Prescriptions as of 08/28/2023 - atorvastatin (LIPITOR) 40 mg tablet Take 1 tablet by mouth daily at bedtime. For cholesterol. - FLUoxetine (PROZAC) 40 mg capsule Take 1 capsule by mouth once daily. - potassium chloride SR (MICRO-K) 10 mEq CR capsule Take 2 capsules by mouth once daily. - donepezil (ARICEPT) 5 mg tablet Take 1 tablet by mouth daily with breakfast. - WALKER ROLLATOR SEAT WITH 6 WHEELS - RED Any color is fine and with a basket if available. Dx: Z91.81, M54.40, R20.8, M46.062 and R26.81 - gabapentin (NEURONTIN) 300 mg capsule Take 1 capsule by mouth daily at bedtime for 180 days. - QUEtiapine (SEROQUEL) 25 mg tablet Take 0.5 tablets by mouth daily at bedtime. - cyanocobalamin (VITAMIN B-12) 500 mcg tablet Take 1 tablet by mouth once daily. - gabapentin (NEURONTIN) 300 mg capsule Take 300 mg by mouth daily at bedtime. - omeprazole (PRILOSEC) 40 mg capsule Take 1 capsule by mouth twice daily. Take 30-60 minutes before breakfast and dinner on an empty stomach. - levothyroxine (SYNTHROID) 50 mcg tablet Take 1 tablet by mouth daily before breakfast. Mon-Sat and none on Saturday, Saturday - mirabegron (MYRBETRIQ) 50 mg Tb24 Take 1 tablet by mouth once daily. - cyclobenzaprine (FLEXERIL) 10 mg tablet Take 1 tablet by mouth every 8 hours as needed for muscle spasm (or pain). - wheat dextrin (BENEFIBER HEALTHY SHAPE) 5 gram/7.4 gram powd Take 2 teaspoonsful by mouth once daily. - amino acids (AMINO ACID ORAL) Take 3 g by mouth once daily. Peptide powder - VITAMIN E ACETATE ORAL Take 10 mg by mouth once daily. - ascorbic acid (VITAMIN C ORAL) Take 90 mg by mouth once daily. - aspirin, enteric coated (ADULT LOW DOSE ASPIRIN) 81 mg EC tablet Take 1 tablet by mouth once daily. Facility-Administered Medications as of 08/28/2023 - menthol-cetylpyridinium 1 Lozenge (CEPACOL LOZENGES) Problem List As Of Date 08/28/2023 Noted Resolved Osteoporosis [M81.0] 05/26/2015 Essential hypertension [I10] 2015 Mixed hyperlipidemia [E78.2] 2015 Hypothyroidism (acquired) [E03.9] 2015 Smoker [F17.200] 2015 Pain in joint, multiple sites [M25.50] 12/07/2015 Colon cancer screening [Z12.11] 12/07/2015 09/18/2019 Elevated fasting blood sugar [R73.01] 12/07/2015 09/18/2019 Hematuria [R31.9] 12/14/2015 09/18/2019 Bilateral carotid artery disease (HCC) [I77.9] 12/20/2015 09/18/2019 Decreased sensation of lower extremity [R20.8] 01/04/2016 Spinal stenosis, lumbar region, with neurogenic*01/23/2016 Urgency of urination [R39.15] 06/13/2016 Well adult exam [Z00.00] 12/26/2016 09/18/2019 Chronic bilateral low back pain with sciatica [*12/26/2016 Pain in both hands [M79.641, M79.642] 12/26/2016 09/18/2019 Encounter for screening mammogram for breast ca*12/26/2017 09/18/2019 Medicare annual wellness visit, subsequent [Z00*12/26/2017 Recurrent major depressive disorder, in remissi*07/01/2018 Medication manageme (more content not included)... [facility] 08-27-2023 Note HNO ID: [id number] Author: Leno Lopez RN Service: ? Author Type: Registered Nurse Type: Progress Notes Filed: 08/27/2023 4:13 PM Note Text: [facility] Telephonic Outreach Provider Action/FYI #1 attempt to contact patient. Contacted for: Routine Telephonic Outreach Contact made with patient: No, left message. Leno Lopez RN August 27, 2023 4:13 PM and Goals/Falls/ADL Update Contact made with patient: No, left message. Leno Lopez RN August 27, 2023 4:13 PM [facility] [facility] History of Present illness Narrative [facility] Telephonic Outreach Provider Action/FYI #1 attempt to contact patient. Contacted for: Routine Telephonic Outreach Contact made with patient: No, left message. Leno Lopez RN August 27, 2023 4:13 PM and Goals/Falls/ADL Update Contact made with patient: No, left message. Leno Lopez RN August 27, 2023 4:13 PM documented in this encounter [facility] 08-27-2023 Note Patient Outreach (AM [facility]) AVISEDISON lGoria ([id number]) 1945 F Date Time Provider Department 08/27/23 [place] [facility] visit today, we recorded the following information about you: Leno Lopez RN 08/27/2023 4:13 PM Signed CDM Telephonic Outreach Provider Action/FYI #1 attempt to contact patient. Contacted for: Routine Telephonic Outreach Contact made with patient: No, left message. Leno Lopez RN August 27, 2023 4:13 PM and Goals/Falls/ADL Update Contact made with patient: No, left message. Leno Lopez RN August 27, 2023 4:13 PM Allergies As of Date: 08/27/2023 Noted Allergy Reaction BACTRIM (SULFAMETHOXAZOLE-TRIMETH* 015 14 - Other: See Comments Comments: Unknown. CEPHALEXIN 11/22/2014 14 - Other: See Comments Comments: Unknown. CITALOPRAM 01/05/2020 7 - Swelling Comments: Throat swelled CYMBALTA (DULOXETINE) 01/05/2020 14 - Other: See Comments Comments: Made her feel groggy. Date Reviewed: 08/23/2023 Reviewed by: Kurt Saravia MD - Fully Assessed Reason for Visit: CDM [Other] Cmt: Telephonic Outreach Prescriptions as of 08/27/2023 - atorvastatin (LIPITOR) 40 mg tablet Take 1 tablet by mouth daily at bedtime. For cholesterol. - FLUoxetine (PROZAC) 40 mg capsule Take 1 capsule by mouth once daily. - potassium chloride SR (MICRO-K) 10 mEq CR capsule Take 2 capsules by mouth once daily. - donepezil (ARICEPT) 5 mg tablet Take 1 tablet by mouth daily with breakfast. - WALKER ROLLATOR SEAT WITH 6 WHEELS - RED Any color is fine and with a basket if available. Dx: Z91.81, M54.40, R20.8, M46.062 and R26.81 - gabapentin (NEURONTIN) 300 mg capsule Take 1 capsule by mouth daily at bedtime for 180 days. - QUEtiapine (SEROQUEL) 25 mg tablet Take 0.5 tablets by mouth daily at bedtime. - cyanocobalamin (VITAMIN B-12) 500 mcg tablet Take 1 tablet by mouth once daily. - gabapentin (NEURONTIN) 300 mg capsule Take 300 mg by mouth daily at bedtime. - omeprazole (PRILOSEC) 40 mg capsule Take 1 capsule by mouth twice daily. Take 30-60 minutes before breakfast and dinner on an empty stomach. - levothyroxine (SYNTHROID) 50 mcg tablet Take 1 tablet by mouth daily before breakfast. Sat-Sat and none on Saturday, Saturday - mirabegron (MYRBETRIQ) 50 mg Tb24 Take 1 tablet by mouth once daily. - cyclobenzaprine (FLEXERIL) 10 mg tablet Take 1 tablet by mouth every 8 hours as needed for muscle spasm (or pain). - wheat dextrin (BENEFIBER HEALTHY SHAPE) 5 gram/7.4 gram powd Take 2 teaspoonsful by mouth once daily. - amino acids (AMINO ACID ORAL) Take 3 g by mouth once daily. Peptide powder - VITAMIN E ACETATE ORAL Take 10 mg by mouth once daily. - ascorbic acid (VITAMIN C ORAL) Take 90 mg by mouth once daily. - aspirin, enteric coated (ADULT LOW DOSE ASPIRIN) 81 mg EC tablet Take 1 tablet by mouth once daily. Facility-Administered Medications as of 08/27/2023 - menthol-cetylpyridinium 1 Lozenge (CEPACOL LOZENGES) Problem List As Of Date 08/27/2023 Noted Resolved Osteoporosis [M81.0] 05/26/2015 Essential hypertension [I10] 2015 Mixed hyperlipidemia [E78.2] 2015 Hypothyroidism (acquired) [E03.9] 2015 Smoker [F17.200] 2015 Pain in joint, multiple sites [M25.50] 12/07/2015 Colon cancer screening [Z12.11] 12/07/2015 09/18/2019 Elevated fasting blood sugar [R73.01] 12/07/2015 09/18/2019 Hematuria [R31.9] 12/14/2015 09/18/2019 Bilateral carotid artery disease (HCC) [I77.9] 12/20/2015 09/18/2019 Decreased sensation of lower extremity [R20.8] 01/04/2016 Spinal stenosis, lumbar region, with neurogenic*01/23/2016 Urgency of urination [R39.15] 06/13/2016 Well adult exam [Z00.00] 12/26/2016 09/18/2019 Chronic bilateral low back pain with sciatica [*12/26/2016 Pain in both hands [M79.641, M79.642] 12/26/2016 09/18/2019 Encounter for screening mammogram for breast ca*12/26/2017 09/18/2019 Medicare annual wellness visit, subsequent [Z00*12/26/2017 Recurrent major depressive disorder, in remissi*07/01/2018 Medication management [Z79.899] 12/31/2018 Bilateral carotid artery stenosis [I65.23] 12/20/2015 Hematuria [R31.9] 12/14/2015 Moderate aortic insufficiency [I35.1] 01/19/2020 Agitation [R45.1] 02/02/2020 Lymphocytic colitis [K52.832] 05/16/2020 Sinus bradycardia [R00.1] 12/21/2020 Protein deficiency (HCC) [E46] 01/24/2021 09/20/2022 Essential tremor [G25.0] 09/18/2021 Living will on file [[id number]] 03/21/2022 Advance directive discussed with patient [Z71.8*03/21/2022 Stage 3a chronic kidney disease (HCC) [N18.31] 09/20/2022 Type 2 diabetes mellitus with stage 3a chronic *09/20/2022 Diabetic eye exam (HCC) [Z01.00, E11.9] 09/24/2022 Memory deficit [R41.3] 11/21/2022 Dementia without behavioral disturbance (HCC) [*12/20/2022 Hypokalemia [E87.6] 03/02/2023 Failure to thrive in adult [R (more content not included)... [facility] 08-23-2023 Note HNO ID: [id number] Author: Kurt Saravia MD Service: ? Author Type: Physician Type: Progress Notes Filed: 08/23/2023 8:10 PM Note Text: Chief Complaint Patient presents with: Follow Up HPI Edison Albarran is a 78 year old female who presents here today for discussion of GERD meds, CKD and smoking. . Patient has npt been getting dyspepsia nausea or vomiting. Patient is smoking about 1/2 PPD. Her son back in Jul 2023. Past medical history, appointments, medications, allergies reviewed. Previous Medical History PAST MEDICAL HISTORY Diagnosis Date Advance directive discussed with patient 03/21/202203/2022 Agitation 02/02/2020 Aneurysm of right subclavian artery (HCC) At risk for falling 04/12/2023 Bilateral carotid artery disease (HCC) 12/20/2015 US 12/2015: 20-40% on Rt and 40-60% on left. US 01/2017 unchanged. Chronic bilateral low back pain with sciatica 12/26/2016 Constipation 07/09/2018 after starting lipitor Decreased sensation of lower extremity 01/04/2016 Dementia without behavioral disturbance (HCC) 12/20/2022 Diabetic eye exam (HCC) 09/24/2022 Last done 08/08/22 Essential hypertension 2015 Essential tremor 09/18/2021 Ex-smoker 2015 1/2-1 PPD since early 50s, quit January 2018 Failure to thrive in adult 03/02/2023 Hematuria 12/14/2015 Urology w/u neg. Hypothyroidism (acquired) 2015 Living will on file 03/21/2022 DPA; Casey (son) Lymphocytic colitis 05/16/2020 Possibly Zoloft related. Mediastinal lymphadenopathy 08/04/2018 Prominent Mediastinal lymphadenopathy noted on CT 08/01/18. CT 01/05/2019 no mediastinal lymphadenopathy Mixed hyperlipidemia 2015 Moderate aortic insufficiency 01/19/[address] Cordoba Osteoporosis 05/26/2015 Pain in both hands 12/26/2016 Pain in joint, multiple sites 12/07/2015 On neurontin Recurrent major depressive disorder, in remission ([facility]) 07/01/2018 Spinal stenosis, lumbar region, with neurogenic claudication 01/23/2016 Stage 3a chronic kidney disease ([facility]) 09/20/2022 Type 2 diabetes mellitus with stage 3a chronic kidney disease ([facility]) 09/20/2022 Type 2 diabetes mellitus without complication, without long-term current use of insulin ([facility]) 12/07/2015 Unsteady gait 03/06/2023 Urgency of urination 06/13/2016 Previous Surgical History PAST SURGICAL HISTORY Procedure Laterality Date 2D ECHO (EXEP) 09/2020 EF=64%, Mild Noe dysf and La enlargment, 2+ AR CARPAL TUNNEL RIGHT WRIST COLONOSCOPY 2010 repeat 10 yrs COLONOSCOPY FLX DX W/COLLJ SPEC WHEN PFRMD 04/21/2020 Colonoscopy CORRECTION OF BUNION Left ESOPHAGOGASTRODUODENOSCOPY TRANSORAL DIAGNOSTIC 04/21/2020 EGD FECAL OCCULT BLOOD TEST 01/01/2018 negative HYSTERECTOMY HX 1970 one ovary removed LEXISCAN STRESS TEST 11/21/2020 negative PAST SURGICAL HISTORY OF 1971 appendectomy PAST SURGICAL HISTORY OF 1987 breast lump, benign STRESS TEST 07/09/2016 WNL TUMOR REMOVAL (SPECIFY LOCATION) HX 2002 stomach Family History FAMILY HISTORY Problem Relation Age of Onset Breast Cancer Mother over 50 Hypertension Mother Lipids Mother Osteoporosis Mother Thyroid Mother Cancer Father stomach Cancer Brother lung Alzheimer's Disease Brother dementia Diabetes Brother Patient Allergies ALLERGIES Allergen Reactions Bactrim [Sulfametho* Other: See Comments Unknown. Cephalexin Other: See Comments Unknown. Citalopram Swelling Throat swelled Cymbalta [Duloxetin* Other: See Comments Made her feel groggy. Current Medications Current Outpatient Medications on File Prior to Visit Medication Sig atorvastatin (LIPITOR) 40 mg tablet Take 1 tablet by mouth daily at bedtime. For cholesterol. FLUoxetine (PROZAC) 40 mg capsule Take 1 capsule by mouth once daily. potassium chloride SR (MICRO-K) 10 mEq CR capsule Take 2 capsules by mouth once daily. donepezil (ARICEPT) 5 mg tablet Take 1 tablet by mouth daily with breakfast. WALKER ROLLATOR SEAT WITH 6 WHEELS - RED Any color is fine and with a basket if available. Dx: Z91.81, M54.40, R20.8, M46.062 and R26.81 gabapentin (NEURONTIN) 300 mg capsule Take 1 capsule by mouth daily at bedtime for 180 days. QUEtiapine (SEROQUEL) 25 mg tablet Take 0.5 tablets by mouth daily at bedtime. cyanocobalamin (VITAMIN B-12) 500 mcg tablet Take 1 tablet by mouth once daily. gabapentin (NEURONTIN) 300 mg capsule Take 300 mg by mouth daily at bedtime. omeprazole (PRILOSEC) 40 mg capsule Take 1 capsule by mouth twice daily. Take 30-60 minutes before breakfast and dinner on an empty stomach. levothyroxine (SYNTHROID) 50 mcg tablet Take 1 tablet by mouth daily before breakfast. Mon-Sat and none on Saturday, Saturday mirabegron (MYRBETRIQ) 50 mg Tb24 Take 1 tablet by mouth once daily. cyclobenzaprine (FLEXERIL) 10 mg tablet Take 1 tablet by mouth every 8 hours as needed for muscle spasm (or pain). wheat dextrin (BENEFIBER HE (more content not included)... [facility] 08-09-2023 Miscellaneous Notes The following approved medication requests have been transmitted electronically. Requested Prescriptions Signed Prescriptions Disp Refills atorvastatin (LIPITOR) 40 mg tablet 90 tablet 1 Sig: Take 1 tablet by mouth daily at bedtime. For cholesterol. Authorizing Provider: KURT SARAVIA FLUoxetine (PROZAC) 40 mg capsule 30 capsule 5 Sig: Take 1 capsule by mouth once daily. Authorizing Provider: KURT SARAVIA potassium chloride SR (MICRO-K) 10 mEq CR capsule 60 capsule 5 Sig: Take 2 capsules by mouth once daily. Authorizing Provider: KURT SARAVIA MD JOHN PAUL 07/15/23 RR NOV 08/23/23 RANDALL Patient has been identified by name and date of : Yes Requested Prescriptions Pending Prescriptions Disp Refills atorvastatin (LIPITOR) 40 mg tablet 90 tablet 1 Sig: Take 1 tablet by mouth daily at bedtime. For cholesterol. FLUoxetine (PROZAC) 40 mg capsule 30 capsule 5 Sig: Take 1 capsule by mouth once daily. potassium chloride SR (MICRO-K) 10 mEq CR capsule 60 capsule 5 Sig: Take 2 capsules by mouth once daily. RX INSTRUCTIONS: Pharmacy initiated this request. No need to notify patient. Corin Warren documented in this encounter [facility] 07-31-2023 Note HNO ID: [id number] Author: Leno Lopez RN Service: ? Author Type: Registered Nurse Type: Progress Notes Filed: 07/31/2023 4:16 PM Note Text: [facility] Telephonic Outreach Provider Action/FYI Contacted for: Routine Telephonic Outreach Contact made with patient: Yes Patient identified by name and date of . Discussed care with patient. Her son recently . Patient denies need for behavioral health social work to reach out with resources at this time. Are you experiencing any new or worsening symptoms you need to talk about today? No Disease Specific Do you check your blood pressure at home? No Do you have new or worsening shortness of breath with activity? No Do you feel like you are dehydrated for any reason, including not being able to eat or drink normally, or having less urine/much darker urine than normal for you? Yes Do you check your daily weight at home? Yes, Have you noticed a sudden gain in weight greater than three pounds in a day or three pounds in a week? Yes Based on body mechanic apprentice, the following disposition is advised: No symptoms or symptoms present, not severe. Routed to: No Action Needed LUZ ELENA Education Provided this Outreach: No Leno Lopez RN July 31, 2023 4:13 PM [facility] 07-31-2023 History of Present illness Narrative [facility] Telephonic Outreach Provider Action/FYI Contacted for: Routine Telephonic Outreach Contact made with patient: Yes Patient identified by name and date of . Discussed care with patient. Her son recently . Patient denies need for behavioral health social work to reach out with resources at this time. Are you experiencing any new or worsening symptoms you need to talk about today? No Disease Specific Do you check your blood pressure at home? No Do you have new or worsening shortness of breath with activity? No Do you feel like you are dehydrated for any reason, including not being able to eat or drink normally, or having less urine/much darker urine than normal for you? Yes Do you check your daily weight at home? Yes, Have you noticed a sudden gain in weight greater than three pounds in a day or three pounds in a week? Yes Based on body mechanic apprentice, the following disposition is advised: No symptoms or symptoms present, not severe. Routed to: No Action Needed LUZ ELENA Education Provided this Outreach: No Leno Lopez RN July 31, 2023 4:13 PM documented in this encounter [facility] 07-31-2023 Miscellaneous Notes This Sw will forward note to [facility] to update on social media analyst that HAYLEY Forrester, has assisted patient with. See below. [facility] Adult Shift Supervisor [employer] is going to be reaching out and assisting patient with local community resource linkage. Hayley [facility] from [facility] and she reports that she would not be able to assist patient with balancing check book. [facility] and she will reach out to patient to discuss social service needs. Hayley spoke with [employer] and was told that they are not sure if they can assist patient with checkbook bill pay needs. Their rep will let Sw know if they can assist. Hayley will forward her note to Dr. Saravia so that he can see what this Hayley has been working on for patient needs. Sw left message for Mónica Navarro-Older Adult Shift Supervisor [employer] to call Sw back to discuss her reaching out to patient at home to help with services. Sw called Michelle Navarro to request that she make home visit to see if she can assist patient with social service linkage needs. Call goes to [facility]. Sw will try call again later. Sw left message for Mónica Navarro, Older Adult Case Management, requesting a call back to see about going out to visit with patient and set patient up with community resources. Sw spoke with patient and she reports that she has friends over to help her with services for her son that she states . Sw notes that she will reach out to Michelle Navarro, Older Adult Shift Supervisor [employer] and see about her visiting patient. [employer] is closed on Fridays. Sw also notes that she will be seeing [employer] staff next week and will see if bill pay assistance is something they assists older adults with and let patient know. Patient notes that she is open to [employer] coming out to see her and helping her with services. Sw called [employer]. Spoke with Olivia and she notes that Thea Moya coordinates a senior program that helps assist with bill pay. Hayley called Thea and was unable to leave message. Sw will try call another time. Sw called [employer] to see if they still provide any bill/financial planning assistance. Agency clerical production worker noted that she would need to check and call Sw back. Sw left direct number to be reached. Sw called patient and left message for patient to return Sw call. Sw would also like to tell patient that she will refer patient to [facility] Older Adult Shift Supervisor [employer]. STEVIE Bernard called Sw back to discuss below. Marco Antonio recommends reaching out to [employer] to see if they are still assisting with helping folks set up auto-pay to help with bills. Marco Antonio also notes that [facility],Adult Case Management would possibly be helpful as well. Sw will reach out to [employer] and see if they are still providing bill pay guidance. Sw called and left STEVIE Bernard a message to return Hayley call to discuss below patient concerns. Sw spoke with patient regarding her concerns with her son that lives with her. Patient reports son Casey lives with her and is supposed to be there to help her with chores around the house. Patient reports that her son will come and go. Left 4 days ago and she has not heard from him. Patient reports that he does not physically abuse me but I feel like he takes advantage of me. Patient reports that she is not able to write her own checks and pay her own bills. I have a hard time adding and subtracting anymore. Patient reports that she does not like son to do her billing as in the past I have found money missing from accounts,but not sure if he took it or not. Patient reports that she drives son around all day as he is unable to drive and expects patient to drive him to wherever he wants to go. Patient reports that Casey also in the past bought an expensive phone and put it on her account at the [employer]. Patient also reports that she had set up accounts for sons to have some money when she passes. My other son has been able to use some of the money in the account and then both sons argue with me about the amount of money that I have set aside. Patient reports that when Casey moved in to her home they had agreed that he would pay $200 a month toward bills. Patient reports that she has not received this agreed upon amount. Patient reports that she has to clean up after Casey ie. occupational therapy department chair his dishes, laundry. Patient reports that son will use her laundry detergent and borrow cigarettes. Patient reports that she has asked Casey about looking for a new apt and he has trouble with obtaining new apt due to not paying bills at last apt. Patient states I do not know what to do, I just feel like I'm backed in a corner. Sw and patient discussed Sw reaching out to [employer]STEVIE and see if Marco Antonio could be able to help with locating rep to help with patient home bills. Will see if Marco Antonio can assist or if Mónica,[employer],Older Adult Case Management would be more helpful. Sw called STEVIE/[employer] and they are closed today due to holiday. Hayley will reach out to STEVIE Bernard tomorrow morning to discuss patient concerns and see if she can assist patient or if Mónica-[employer] would be more appropriate. Patient had also mentioned need of new walker. Sw will check with Dr. Saravia office as patient reports that home healthcare workers had told her that they would help patient with obtaining walker, but have closed patient out of home health services. documented in this encounter [facility] 07-31-2023 Note Patient Outreach ([facility] EDISON ALBARRAN ([id number]) 1945 F Date Time Provider Department 07/31/23 [place] [facility] [place] visit today, we recorded the following information about you: Leno Lopez RN 07/31/2023 4:16 PM Signed CDM Telephonic Outreach Provider Action/FYI Contacted for: Routine Telephonic Outreach Contact made with patient: Yes Patient identified by name and date of . Discussed care with patient. Her son recently . Patient denies need for behavioral health social work to reach out with resources at this time. Are you experiencing any new or worsening symptoms you need to talk about today? No Disease Specific Do you check your blood pressure at home? No Do you have new or worsening shortness of breath with activity? No Do you feel like you are dehydrated for any reason, including not being able to eat or drink normally, or having less urine/much darker urine than normal for you? Yes Do you check your daily weight at home? Yes, Have you noticed a sudden gain in weight greater than three pounds in a day or three pounds in a week? Yes Based on body mechanic apprentice, the following disposition is advised: No symptoms or symptoms present, not severe. Routed to: No Action Needed LUZ ELENA Education Provided this Outreach: No Leno Lopez RN July 31, 2023 4:13 PM Allergies As of Date: 07/31/2023 Noted Allergy Reaction BACTRIM (SULFAMETHOXAZOLE-TRIMETH* 015 14 - Other: See Comments Comments: Unknown. CEPHALEXIN 11/22/2014 14 - Other: See Comments Comments: Unknown. CITALOPRAM 01/05/2020 7 - Swelling Comments: Throat swelled CYMBALTA (DULOXETINE) 01/05/2020 14 - Other: See Comments Comments: Made her feel groggy. Date Reviewed: 07/15/2023 Reviewed by: Marty Barkley LPN - Fully Assessed Reason for Visit: CDM [Other] Cmt: Telephonic Outreach Prescriptions as of 08/27/2023 - atorvastatin (LIPITOR) 40 mg tablet Take 1 tablet by mouth daily at bedtime. For cholesterol. - FLUoxetine (PROZAC) 40 mg capsule Take 1 capsule by mouth once daily. - potassium chloride SR (MICRO-K) 10 mEq CR capsule Take 2 capsules by mouth once daily. - donepezil (ARICEPT) 5 mg tablet Take 1 tablet by mouth daily with breakfast. - WALKER ROLLATOR SEAT WITH 6 WHEELS - RED Any color is fine and with a basket if available. Dx: Z91.81, M54.40, R20.8, M46.062 and R26.81 - gabapentin (NEURONTIN) 300 mg capsule Take 1 capsule by mouth daily at bedtime for 180 days. - QUEtiapine (SEROQUEL) 25 mg tablet Take 0.5 tablets by mouth daily at bedtime. - cyanocobalamin (VITAMIN B-12) 500 mcg tablet Take 1 tablet by mouth once daily. - gabapentin (NEURONTIN) 300 mg capsule Take 300 mg by mouth daily at bedtime. - omeprazole (PRILOSEC) 40 mg capsule Take 1 capsule by mouth twice daily. Take 30-60 minutes before breakfast and dinner on an empty stomach. - levothyroxine (SYNTHROID) 50 mcg tablet Take 1 tablet by mouth daily before breakfast. Sat-Sat and none on Saturday, Saturday - mirabegron (MYRBETRIQ) 50 mg Tb24 Take 1 tablet by mouth once daily. - cyclobenzaprine (FLEXERIL) 10 mg tablet Take 1 tablet by mouth every 8 hours as needed for muscle spasm (or pain). - wheat dextrin (BENEFIBER HEALTHY SHAPE) 5 gram/7.4 gram powd Take 2 teaspoonsful by mouth once daily. - amino acids (AMINO ACID ORAL) Take 3 g by mouth once daily. Peptide powder - VITAMIN E ACETATE ORAL Take 10 mg by mouth once daily. - ascorbic acid (VITAMIN C ORAL) Take 90 mg by mouth once daily. - aspirin, enteric coated (ADULT LOW DOSE ASPIRIN) 81 mg EC tablet Take 1 tablet by mouth once daily. Facility-Administered Medications as of 08/27/2023 - menthol-cetylpyridinium 1 Lozenge (CEPACOL LOZENGES) Problem List As Of Date 07/31/2023 Noted Resolved Osteoporosis [M81.0] 05/26/2015 Essential hypertension [I10] 2015 Mixed hyperlipidemia [E78.2] 2015 Hypothyroidism (acquired) [E03.9] 2015 Ex-smoker [Z87.891] 2015 Pain in joint, multiple sites [M25.50] 12/07/2015 Colon cancer screening [Z12.11] 12/07/2015 09/18/2019 Elevated fasting blood sugar [R73.01] 12/07/2015 09/18/2019 Hematuria [R31.9] 12/14/2015 09/18/2019 Bilateral carotid artery disease (HCC) [I77.9] 12/20/2015 09/18/2019 Decreased sensation of lower extremity [R20.8] 01/04/2016 Spinal stenosis, lumbar region, with neurogenic*01/23/2016 Urgency of urination [R39.15] 06/13/2016 Well adult exam [Z00.00] 12/26/2016 09/18/2019 Chronic bilateral low back pain with sciatica [*12/26/2016 Pain in both hands [M79.641, M79.642] 12/26/2016 09/18/2019 Encounter for screening mammogram for breast ca*12/26/2017 09/18/2019 Medicare annual wellness visit, subsequent [Z00*12/26/2017 Recurrent major depressive disorder, in remissi*07/01/2018 Medication management [Z79.899] 12/31/2018 [place] (more content not included)... [facility] 07-25-2023 Miscellaneous Notes Incoming call from grand daughter, January, requesting to cancel HYDROELECT[employer] MECH[employer] virtual visit this afternoon. January reported pt cannot afford co-pay. HYDROELECTRIC MECHANIC to send community resources via [employer] message and remain available to assist as needed. YULY Harper HYDROELECTRIC MECHANIC received call from granddaughter. No message left. HYDROELECTRIC MECHANIC returned call and reached voicemail. Provided contact information. YULY Harper HYDROELECTRIC MECHANIC contacted granddaughter/POA at request of provider to arrange SW visit. Pt's son, granddaughter's father, last week and they are requesting assistance with resources. Granddaughter agreeable to virtual visit on 07/25 at 2:00 pm. Request sent to Zafar Tena. YULY Harper documented in this encounter [facility] 07-24-2023 Note HNO ID: [id number] Author: Aubrie Davila MD Service: ? Author Type: Physician Type: Progress Notes Filed: 07/24/2023 3:10 PM Note Text: [facility] - Follow-up Visit This visit was conducted as a virtual visit. I have communicated my name and active licensure. The patient's identity and physical location were verified at the time of this visit. Either the patient or their legal patient service representative has been informed of the risks and benefits of -- and alternatives to -- treatment through a remote evaluation and consents to proceed with the evaluation remotely. Date: July 24, 2023 Patient Name: Edison Albarran Reason for Visit: follow-up visit Accompanied by: grand daughter January --------- - SUBJECTIVE: HPI/interval history: During her previous visit the following plan was made: Previous plan --------- ------ PLAN: Recommend cutting down on the Donepezil to 5 mg daily due to low HR and issues with dizziness and falls although reportedly these was present even before initiation of Donepezil. [employer] consult to help provide resources. May consider low dose Seroquel at 12.5mg qhs to help with her sleep and agitation issues. May consider increasing to 25 mg qhs if tolerating in the future. Today's visit: Getting dizzy with Seroquel every morning. She feels off balance most of the day and she feels this has been going since she started Seroquel. She used to take Melatonin and it helped with sleep. Not known if she is struggling with agitation in the evening hours or sleep issues. She has been consistently taking Seroquel. She slipped off the toilet this morning because of being off balance. Functional Evaluation: B-ADLs: (I=independent,A=assistance,D=dep endent) ?Bathing: I , Dressing: I , Toileting: I , Transferring: I , Continence: I , Feeding: I I-ADLs: Transportation: A, Medications: I with a pill pack, Handle Finances: A REVIEW OF SYSTEMS: Weight change/Appetite: Poor appetite Hearing: no change Vision: no change Constipation, Diarrhea: no Incontinence: no Chest pain: No Edema: No Dyspnea: No Falls/injuries/accidents: Yes NEURO: SEE HPI --------- - OUTPATIENT MEDICATIONS Current Outpatient Medications on File Prior to Visit Medication Sig WALKER ROLLATOR SEAT WITH 6 WHEELS - RED Any color is fine and with a basket if available. Dx: Z91.81, M54.40, R20.8, M46.062 and R26.81 gabapentin (NEURONTIN) 300 mg capsule Take 1 capsule by mouth daily at bedtime for 180 days. donepezil (ARICEPT) 10 mg tablet Take 1 tablet by mouth daily at bedtime. QUEtiapine (SEROQUEL) 25 mg tablet Take 0.5 tablets by mouth daily at bedtime. cyanocobalamin (VITAMIN B-12) 500 mcg tablet Take 1 tablet by mouth once daily. gabapentin (NEURONTIN) 300 mg capsule Take 300 mg by mouth daily at bedtime. omeprazole (PRILOSEC) 40 mg capsule Take 1 capsule by mouth twice daily. Take 30-60 minutes before breakfast and dinner on an empty stomach. potassium chloride SR (MICRO-K) 10 mEq CR capsule Take 2 capsules by mouth once daily. atorvastatin (LIPITOR) 40 mg tablet Take 1 tablet by mouth daily at bedtime. For cholesterol. FLUoxetine (PROZAC) 40 mg capsule Take 1 capsule by mouth once daily. (Patient not taking: Reported on 04/16/2023) levothyroxine (SYNTHROID) 50 mcg tablet Take 1 tablet by mouth daily before breakfast. Sat-Sat and none on Saturday, Saturday mirabegron (MYRBETRIQ) 50 mg Tb24 Take 1 tablet by mouth once daily. cyclobenzaprine (FLEXERIL) 10 mg tablet Take 1 tablet by mouth every 8 hours as needed for muscle spasm (or pain). wheat dextrin (BENEFIBER HEALTHY SHAPE) 5 gram/7.4 gram powd Take 2 teaspoonsful by mouth once daily. amino acids (AMINO ACID ORAL) Take 3 g by mouth once daily. Peptide powder VITAMIN E ACETATE ORAL Take 10 mg by mouth once daily. ascorbic acid (VITAMIN C ORAL) Take 90 mg by mouth once daily. Melatonin 5 mg cap Take 1 capsule by mouth daily at bedtime. aspirin, enteric coated (ADULT LOW DOSE ASPIRIN) 81 mg EC tablet Take 1 tablet by mouth once daily. Current Facility-Administered Medications on File Prior to Visit Medication menthol-cetylpyridinium 1 Lozenge (CEPACOL LOZENGES) --------- - OBJECTIVE: PHYSICAL EXAM: General appearance: Sitting upright. Appears stated age. No acute distress. Non-toxic appearing. No hypomimia. AAOx3. Neuro: Mental Status: Shay Cognitive Assessment (MoCA) MoCA Past Scores MoCA 04/16/2023 MOCA TOTAL SCORE 12 out of 30 Visuospatial/ Executive 1 Naming 3 Attention 3 Language 0 Abstraction 1 Delayed Recall 0 Orientation 3 Education Level 1 Crania (more content not included)... [facility] 07-22-2023 Miscellaneous Notes Looks like Rx was printed. Did we give this to her at ? Briana Chavarria Ma documented in this encounter [facility] 07-20-2023 Note HNO ID: [id number] Author: Note, Interface Service: ? Author Type: ? Type: Progress Notes Filed: 07/20/2023 5:29 AM Note Text: Epic Scheduled Downtime: 07/20/2023 1:00:00 AM to 07/20/2023 1:28:[address] [facility] 07-19-2023 History of Present illness Narrative Care Coordination Deferred Outreach Provider Action / FYI: Had appointment with Family Medicine provider on 07-15-23. Deferred outreach to patient at this time due to: Recent visit with provider. Next Outreach date: 07-29-23 Leno Lopez RN July 19, 2023 3:24 PM documented in this encounter [facility] 07-18-2023 Miscellaneous Notes Faxed. Brenda Sanabria MA Script ready to be faxed to [facility] Patient calls back and states provider can send order to [facility]. Teresa Yuen RN Left message for pt to contact office. Marty Barkley LPN Can we find out if patient wants me to sent the script for the walker to a discount drug mart near her? Since [facility] does not due durable medical equipment. Patient phoned asking pcp to send order for her to have a walker, with wheels, a basket, and seat to sit down when she gets tired. Reports she uses [facility], and not sure who to send order to, maybe LUKE Hawk?: Reports she is 4'11 and weighs 97#. Patient reports the police came to her home last night, to let her know, her son of a heart attack, while working with friends. Reports he lived with her, and now she is alone with noone to help her. Patient did not sound sad, and laughed frequently, while discussing how her son was afraid to ride in the car with her and her driving scared him. Patient laughed when describing how she would have to hold onto son's arm to keep her steady while walking in stores. When asked how old her son was, patient could not remember, stating I don't know, maybe 55 or 56 and patient was laughing b/c she could not remember. Patient was pleasant and cheerful. Patient asking office to phone her to let her know if walker can be ordered. documented in this encounter [facility] 07-15-2023 Instructions Mally Calzada PA-C - 07/15/2023 11:51 AM EDT At this point, I would suggest discussing with brain health about any concerns on memory or moods. I don't want to make any changes when also seeing a specialist for this. documented in this encounter [facility] 07-15-2023 History of Present illness Narrative Chief Complaint Patient presents with: memory issues HPI Edison Albarran is a 77 year old female who presents here today for Above Complaints.. Patient's son made this appointment for her because he is concerned by her memory and moods. Son is not here today. Patient is concerned that her son is trying to make her dementia and behaviors worse than what they are. She reports that she does get frustrated with her son because he doesn't really help around the house. He doesn't help with rent or paying for food. She states recently she made a 3lb meat loaf and he had ate it all in 1 night. He leaves messes in the kitchen and she has random people at her house often. She cleans her kitchen and sink and by the afternoon he has another pile of dishes for her to do and this along with other reasons is why she is getting frustrated with the living situation. She states that over the weekend her neighbors called the print manager on him and he was taken from her home. She is worried about what will happen next. She doesn't want him in senior care but also no longer comfortable with him staying in her home. She also worries about not having any help around her house if she makes him leave. Past medical history, appointments, medications, allergies reviewed. Previous Medical History PAST MEDICAL HISTORY Diagnosis Date Advance directive discussed with patient 03/21/202203/2022 Agitation 02/02/2020 Aneurysm of right subclavian artery (HCC) At risk for falling 04/12/2023 Bilateral carotid artery disease (HCC) 12/20/2015 US 12/2015: 20-40% on Rt and 40-60% on left. US 01/2017 unchanged. Chronic bilateral low back pain with sciatica 12/26/2016 Constipation 07/09/2018 after starting lipitor Decreased sensation of lower extremity 01/04/2016 Dementia without behavioral disturbance ([facility]) 12/20/2022 Diabetic eye exam ([facility]) 09/24/2022 Last done 08/08/22 Essential hypertension 2015 Essential tremor 09/18/2021 Ex-smoker 2015 1/2-1 PPD since early 49, quit January 2018 Failure to thrive in adult 03/02/2023 Hematuria 12/14/2015 Urology w/u neg. Hypothyroidism (acquired) 2015 Living will on file 03/21/2022 DPA; Casey (son) Lymphocytic colitis 05/16/2020 Possibly Zoloft related. Mediastinal lymphadenopathy 08/04/2018 Prominent Mediastinal lymphadenopathy noted on CT 08/01/18. CT 01/05/2019 no mediastinal lymphadenopathy Mixed hyperlipidemia 2015 Moderate aortic insufficiency 01/19/[address] Cordoba Osteoporosis 05/26/2015 Pain in both hands 12/26/2016 Pain in joint, multiple sites 12/07/2015 On neurontin Recurrent major depressive disorder, in remission (HCC) 07/01/2018 Spinal stenosis, lumbar region, with neurogenic claudication 01/23/2016 Stage 3a chronic kidney disease ([facility]) 09/20/2022 Type 2 diabetes mellitus with stage 3a chronic kidney disease ([facility]) 09/20/2022 Type 2 diabetes mellitus without complication, without long-term current use of insulin ([facility]) 12/07/2015 Unsteady gait 03/06/2023 Urgency of urination 06/13/2016 Previous Surgical History PAST SURGICAL HISTORY Procedure Laterality Date 2D ECHO (EXEP) 09/2020 EF=64%, Mild Noe dysf and La enlargment, 2+ AR CARPAL TUNNEL RIGHT WRIST COLONOSCOPY 2010 repeat 10 yrs COLONOSCOPY FLX DX W/COLLJ SPEC WHEN PFRMD 04/21/2020 Colonoscopy CORRECTION OF BUNION Left ESOPHAGOGASTRODUODENOSCOPY TRANSORAL DIAGNOSTIC 04/21/2020 EGD FECAL OCCULT BLOOD TEST 01/01/2018 negative HYSTERECTOMY HX 1970 one ovary removed LEXISCAN STRESS TEST 11/21/2020 negative PAST SURGICAL HISTORY OF 1971 appendectomy PAST SURGICAL HISTORY OF 1987 breast lump, benign STRESS TEST 07/09/2016 WNL TUMOR REMOVAL (SPECIFY LOCATION) HX 2001 stomach Family History FAMILY HISTORY Problem Relation Age of Onset Breast Cancer Mother over 50 Hypertension Mother Lipids Mother Osteoporosis Mother Thyroid Mother Cancer Father stomach Cancer Brother lung Alzheimer's Disease Brother dementia Diabetes Brother Patient Allergies ALLERGIES Allergen Reactions Bactrim [Sulfametho* Other: See Comments Unknown. Cephalexin Other: See Comments Unknown. Citalopram Swelling Throat swelled Cymbalta [Duloxetin* Other: See Comments Made her feel groggy. Current Medications Current Outpatient Medications on File Prior to Visit Medication Sig gabapentin (NEURONTIN) 300 mg capsule Take 1 capsule by mouth daily at bedtime for 180 days. donepezil (ARICEPT) 10 mg tablet Take 1 tablet by mouth daily at bedtime. QUEtiapine (SEROQUEL) 25 mg tablet Take 0.5 tablets by mouth daily at bedtime. cyanocobalamin (VITAMIN B-12) 500 mcg tablet Take 1 tablet by mouth once daily. WALKER ROLLATOR SEAT WITH 6 WHEELS - RED Dx: R26.81, Z91.81 gabapentin (NEURONTIN) 300 mg capsule Take 300 mg by mouth daily at bedtime. omeprazole (PRILOSEC) 40 mg capsule Take 1 capsule by mouth twice daily. Take 30-60 minutes before breakfast and dinner on an empty stomach. potassium chloride SR (MICRO-K) 10 mEq CR capsule Take 2 capsules by mouth once daily. atorvastatin (LIPITOR) 40 mg tablet Take 1 tablet by mouth daily at bedtime. For cholesterol. levothyroxine (SYNTHROID) 50 mcg tablet Take 1 tablet by mouth daily before breakfast. Mon-Sat and none on Saturday, Saturday mirabegron (MYRBETRIQ) 50 mg Tb24 Take 1 tablet by mouth once daily. cyclobenzaprine (FLEXERIL) 10 mg tablet Take 1 tablet by mouth every 8 hours as needed for muscle spasm (or pain). amino acids (AMINO ACID ORAL) Take 3 g by mouth once daily. Peptide powder VITAMIN E ACETATE ORAL Take 10 mg by mouth once daily. ascorbic acid (VITAMIN C ORAL) Take 90 mg by mouth once daily. Melatonin 5 mg cap Take 1 capsule by mouth daily at bedtime. aspirin, enteric coated (ADULT LOW DOSE ASPIRIN) 81 mg EC tablet Take 1 tablet by mouth once daily. FLUoxetine (PROZAC) 40 mg capsule Take 1 capsule by mouth once daily. (Patient not taking: Reported on 04/16/2023) wheat dextrin (BENEFIBER HEALTHY SHAPE) 5 gram/7.4 gram powd Take 2 teaspoonsful by mouth once daily. Current Facility-Administered Medications on File Prior to Visit Medication menthol-cetylpyridinium 1 Lozenge (CEPACOL LOZENGES) Social History Social History Tobacco Use Smoking status: Some Days Packs/day: .5 Types: Cigarettes Smokeless tobacco: Never Tobacco comments: Roughly one pack per week Vaping Use Vaping Use: Never used Substance Use Topics Alcohol use: Not Currently Drug use: Never Review of Symptoms REVIEW OF SYSTEMS See hpi EXAM: BP 136/66 (BP Site: Left Arm, BP Position: Sitting, BP Cuff Size: Regular Adult) Pulse 68 Temp 36.6 C (97.8 F) Resp 16 Wt 44.1 kg (97 lb 2 oz) BMI 18.97 kg/m General Appearance: Well appearing, alert, in no acute distress, well-hydrated, well nourished.. Health Maintenance List Hepatitis B Vaccine(1 of 3 - Risk 3-dose series) Never done Covid-19 Vaccine(5 - Moderna series) due on 01/19/2023 Influenza Vaccine(1) due on 06/07/2023 Dilated Retinal Exam due on 08/08/2023 Shingrix Vaccine(2 of 2) due on 09/20/2023 Urine Albumin:Creatinine Ratio due on 09/13/2023 Diabetic Foot Exam due on 09/20/2023 HbA1C due on 09/20/2023 Hemoglobin/Hematocrit due on 03/03/2024 LDL Cholesterol due on 03/21/2024 Annual PCP Team Chronic Disease Visit due on 03/21/2024 Serum Creatinine due on 03/21/2024 BP Controlled (<130/80) due on 04/25/2024 DTaP,Tdap,Td Vaccine(3 - Td or Tdap) due on 05/29/2028 Bone Density Screening Completed Advance Directive Discussion Completed Pneumococcal Vaccine: 65+ Completed Colorectal Cancer Screening Discontinued Hepatitis C Screening Discontinued Data reviewed ASSESSMENT/PLAN: 1. Dementia without behavioral disturbance (HCC) - ICD9: 294.20, ICD10: F03.90 (primary diagnosis) See below Also discussed that I would not make changes in medications at this time. 2. Encounter for immunization - ICD9: V03.89, ICD10: Z23 - INFLUENZA VACCINE, PRSV FREE, AGE 65+ YR, HIGH DOSE, QUADRIVALENT (FLUZONE HIGH-DOSE) - [employer] COVID-19 VACCINE (2022- SEASON) AGE 12+ YR 3. Family conflict - ICD9: V61.9, ICD10: Z63.8 Patient does have documented dx of dementia that is mild-moderate in nature. She seems to be having more family dynamic issues and I see no signs of aggressive behavior due to patient's dementia. She is in a situation that has left her uncomfortable and she does not know what to do next. It is of my professional impression that patient is competent to make decisions for herself. I discussed case with dr. Saravia who agrees with above. I have offered to place a delinquency prevention social worker consult for patient and she agrees. Patient also does not have legitimate DPA on file. Will give patient a new form. Mally Calzada PA-C I spent a total of 43 minutes on the date of the service which included [id number] patient care, counseling and educating the patient/family/caregiver, communicating with other HCPs (not separately reported), and communicating results to the patient/family/caregiver. documented in this encounter [facility] 06-15-2023 Miscellaneous Notes noted Patient's son Casey Vergarap calling regarding patient. Casey lives with patient. Requesting appt with Dr. Saravia or FATOUMATA Carbajal sometime next week due to noted increase in agitation and behaviors, which pt has been experiencing over the last couple of months or more. Available appt offered with Dr. Saravia for tomorrow morning however son declined and requested appt for early next week. Earliest appt next week was made with Mally HAM for 06/19. Rashmi Lowery RN documented in this encounter [facility] 06-14-2023 Miscellaneous Notes Patient has been identified by name and date of : Yes, Elina Briscoe RN Date 06/14/2023 Time 9:28 am Pharmacy phones for refill(s): Requested Prescriptions Pending Prescriptions Disp Refills gabapentin (NEURONTIN) 300 mg capsule 90 capsule 1 Sig: Take 1 capsule by mouth daily at bedtime for 180 days. donepezil (ARICEPT) 10 mg tablet 30 tablet 5 Sig: Take 1 tablet by mouth daily at bedtime. Date of last office visit with pcp: 03/21/2023 Future appt: 09/25/2023 Last 2 Encounter Wt Readings: Date: Wt: 04/19/2023 43.1 kg (95 lb) 04/16/2023 42.6 kg (94 lb) Previous labs/tests for medication: Blood Pressure: BUN (mg/dL) Date Value 03/21/2023 6 04/25/2021 10 Sodium (mmol/L) Date Value 03/21/2023 137 04/25/2021 140 Last 1 Encounter BP Readings: Date: BP: 04/25/2023 118/72 Liver Function: ALT (U/L) Date Value 11/30/2022 16 04/25/2021 24 AST (U/L) Date Value 11/30/2022 27 04/25/2021 32 Please advise. Thank you. Elina Briscoe RN documented in this encounter [facility] 05-27-2023 History of Present illness Narrative CDM ENROLLMENT Provider Action / FYI: CDM Contact Made with Patient: Yes The patient was identified by Name and Date of . Discussed Care with: patient Patient enrolled via: Telephonic Are you experiencing any new or worsening symptoms that you need to talk about today? No Norma Best RN May 27, 2023 3:07 PM documented in this encounter [facility] 04-23-2023 Miscellaneous Notes SITUATION: [facility] Disc[facility] Discharge visit completed today. son also present during today's visit. patient reports the following changes since the last home care visit: Allergies--reviewed Medications--none Falls--none BACKGROUND: Reason for Home Care: Hypokalemia ASSESSMENT: SN greeted at door by patient If you select Patient: Patient utilizing no DME and demonstrates stable gait.. If Cane/Walker/Caregiver Assist or no DME selected: and demonstrates Vitals (see flow sheet for details) stable SN findings today: Pt has progressed well towards her nursing goals. She and her son demonstrates an understanding of continued disease management. She has been given her nursing instructions and agrees with today's discharge she will continue with [facility] therapy See intervention summary for education details and any skills performed. Specific SN discharge instructions: Continue with a diet of smaller more frequent meals, rich in potassium. Patient encouraged to take all medication as ordered, eat a well-balanced diet and follow up with all physician appointments. Additional follow ups recommended: none NOMNC: signed and present on EMR Discharged due to no further SN skilled need. RECOMMENDATION: Patient to continue with PT services. documented in this encounter [facility] 04-22-2023 Miscellaneous Notes RN called Herson at Pharmacy back to relay Dr. Davila's message regarding medication. Would like to prescribe Seroquel. It is for agitation in dementia. Agitation is not responding to nonpharmacological methods. We need something quick acting that's why did not choose Abilify. Herson will provide pt son with a pharm card and pt will get for a discount as insurance still not approving. Herson said he will discuss with Pt son and will let us know if there are any problems or concerns. Dr. Davila updated. Mónica Reno RN documented in this encounter [facility] 04-22-2023 Miscellaneous Notes RN returned call to [facility] to relay Dr. Davila's message. Please see phone encounter. Mónica Reno RN RN returned Herson Mackay call from [facility] with concern regarding the QUEtiapine (SEROQUEL) 12.5 mg qhs (25 mg) tablet wants to switch it to a different med abilify. Per Herson, Erich giving hard time d/t guidelines and he wanted to make sure this is the Rx and asking if Provider wishes to proceed with medication or switch Rx to Abilify or another in that class. Message sent to dr. Davila for review. RN to call Herson back with Provider's reply. Mónica Reno RN documented in this encounter [facility] 04-22-2023 Miscellaneous Notes 04/22/2023 Herson Mackay called from [facility] with concern regarding the QUEtiapine (SEROQUEL) 25 mg tablet wants to switch it to a different med abilify. Please call [facility] at [phone] Herson Mackay called from [facility] with question concerning Yaritza palacios that was sent yesterday. He can be reached at [phone] documented in this encounter [facility] 04-21-2023 Instructions Karlos Hill MD - 04/21/2023 7:45 AM EDT Thank you for seeing me in clinic today. As we discussed, my recommendations are as follows: Increase omeprazole to 40 mg twice daily. It works best if you take this 30-60 minutes before breakfast and dinner on an empty stomach. If your swallowing is unchanged after 2 months on twice daily omeprazole, go back to taking this once daily. Use 2 teaspoons of soluble fiber (e.g. Metamucil, Benefiber or Citrucel) in 12 oz of water every day. Stir until fiber has dissolved. If fiber is well-tolerated but does not completely regulate bowel movements after 1 week, add another teaspoon of fiber for a total of 3 teaspoons per day. Fiber works best if you are hydrated. Be sure to drink at least 64 oz of water every day. You can continue taking your Peptides supplement Take potassium and other medication with a full 12 oz glass of water. Sit upright while swallowing pills and for 30 minutes afterwards. Chew food slowly and thoroughly. If cost-feasible, I recommend that you see a dentist to get dentures as this may make a huge difference in your swallowing ability. Please make a follow up visit with me in 3 months If you have any questions about the above treatment plan, please do not hesitate to send me a [employer] message or call the [facility] at [phone] to route me a message. documented in this encounter [facility] 04-19-2023 Miscellaneous Notes SITUATION: son present during today's visit. patient reports the following since the last homecare visit: medications/allergies--no changes, no fall. patient reports that she has been doing yard work and is having increased pain. Patient reports that she has to get her stuff done. Patient easily distracted throughout visit and requires verbal cues to stay on task. NOMNC signed this date. BACKGROUND: Diagnoses (reason for Home Care): Hypokalemia [E87.6] Weight Bearing/Precaution Changes: no changes ASSESSMENT: Focus of visit: ambulation training, stair negotiation for home exit, reviewed standing HEP - added SLS and tandem stance NOMNC signed this date. Patient/son verbalizes understanding and in agreement with PT agency discharge next visit. Signed copy left in home. Plan of care, goals, and visit frequency reviewed and agreed upon with patient and/or caregiver. Current Discharge Plan: family support Anticipate discharge by 04/25/2023 RECOMMENDATION: Next visit to focus on: PT agency DC next visit, final review of HEP and education on importance of using AD. See intervention summary for intervention/education details. documented in this encounter [facility] 04-19-2023 Instructions Pepper Bain LISW - 04/19/2023 2:09 PM EDT When there is a diagnosis of dementia, no matter the type, we encourage families to educate themselves, learn communication tips, and learn ways to adjust expectations over time. There are many resources available online. The Alzheimer's Association (web site: alz.org) Help Line available 24 hours a day, 7 days per week: [phone]. Call Help Line to learn of local options for support groups and to register. Family Caregiver [place] (web site: Caregiver.org) [facility] CareAssmbly- a secure online solution for quality information, support, and resources for family caregivers. Contact: -We discussed options for home care. Discussed PASSPORT Medicaid Waiver and Options for Independent Living. PASSPORT Medicaid Waiver income limits: $2,523 per month for one person and having no more than $2,000 in countable assets. Contact [facility] Agency on Aging for phone assessment [phone]. [facility] can send one of our experts to your home to access your unique situation. That way, we can accurately make recommendations for the right resources and modifications to meet your needs. Get started by calling the Aging and Disability Resource Center at [phone]. Need help keeping your home safe and accessible? Let us help! We offer a variety of programs and services specifically designed to keep you wherever you call home as long as possible. Access services, such as: Transportation Minor home modifications Home delivered meals Personal care aides Adult day services Emergency response systems -I spoke with our RN care coordinators regarding the order for a walker and ensure. They advised that ensure can be prescribed and recommend this come from Edison's primary care physician (PCP). An order for a walker can be placed, just keep in mind that Medicare covers one piece of durable medical equipment every five years. This order should also come from PCP's office. -[facility] hosts daily activities call for information. Advance Directives Every adult has the right to direct their own medical care. Having an advance directive on file helps to ensure that you receive the care you want if a medical condition or injury renders you unable to make decisions or communicate. Forms can be found on the [facility] Advance Directives site. You do not need a management instructor to complete advance directive documents. [email or web address] Talking about end-of-life issues is difficult, but it truly is a gift to your loved ones. We suggest using The Conversation Project (theconversationproject.org) to help guide you through discussing and thinking about your wishes/preferences, goals and values and completing your advance directive. After you complete the documents, talk to those people who may be involved with your healthcare decision making, and give them a copy of your forms to make sure your wishes are followed. Please bring a copy of your advance directive documents to your next appointment, or email to as an attachment in either PDF, TIFF, or JPEG format. You can also mail to: [facility] Health Information Management, [employer] Advance Directive Processing [address] [place], [place] [address] Please feel free to call or schedule a follow up visit with any questions or concerns. MASHA Harper, YULY Jules [facility] [phone] documented in this encounter [facility] 04-19-2023 Miscellaneous Notes SITUATION: Prison routine visit completed today. son also present during today's visit. patient and caregiver reports the following: Allergies--reviewed Medications--reviewed current medications Falls--None DME-Reviewed BACKGROUND: Reason for Home Care: Hypokalemia ASSESSMENT: SN greeted at door by caregiver. Upon entrance patient found in chair Patient appears in no acute distress. Vitals (see flow sheet for details): stable SN findings today: Pt presents today in her home. She uses a walker when outside the home. Her son lives with her. She express she has had an increase of appetite with a noted increase in weight gain. Sh express she has some memory impairment. She express having worries over her ability to pay her bills and manage her checking account, she express she does nt trust her family as several memebers have taken things from her in the past. SN educated she could reach out to a deputy attorney general or a banker who may be able to help set up auto pays for her. reinfored on deep breathing pacing self, using her walker for assist, eating smaller more frequent meals. she expressed understanding See intervention summary for education details. Patient demonstrated a need for further skilled SN services for chronic disease management & education and medication education. Current Discharge plan: self-care and family support RECOMMENDATION: Next visit to focus on (be specific): how is memory ?appetite? documented in this encounter [facility] 04-19-2023 History of Present illness Narrative SOCIAL WORK NOTE I have communicated my name and active licensure. The patient's identity and physical location were verified at the time of this visit. Patient consented to the video assessment. Edison Albarran [address] [place] [address] INFORMATION/REFERRAL: Referral Source: Aubrie Davila MD Pt information: Edison Albarran is a 77 year old year old female referred to [facility] social work for the following reason(s): community resources Pt present for appointment: Yes Additional Participants: sonCasye Functional Status: With overall regard to patient functioning, Difficulty with IADL's, independant with ADL's. Living Situation & Setting: lives in own home with Casey urias. Safety Assessment: Is the patient driving? YES Driving Concerns: Yes, gets lost at times. Stays within 10 mile radius. Son does not have a license at this time. Is the patient taking medications as prescribed? YES, uses pill packs Is the patient left alone? YES Aware of 911: son believes she would know to call 911. Did not assess with pt. Medical Alert System: Yes, fit bit linked to son's phone. Has life alert, son will encourage pt to use. Are there concerns about safety in the home? YES Has the patient gotten lost in familiar places or wandered? NO Are firearms present in th home? NO. If yes, how are they stored? N/A Has the patient experienced unsteadiness or sustained falls? YES Falls: positive EMPLOYMENT/FINANCIAL/INSURANCE: DPOA health: No DPOA finance: No Guardian: No Is patient a ?: Yes, son unsure of years served or branch. LTC Policy: No Agencies involved: PROBLEMS/NEEDS IDENTIFIED: Continue to assess/collaborate Equipment Information Long-term care plan DISCUSSION: Phone assessment with pt and son. Spoke with pt briefly until home nurse arrived and assessment continued with son who lives in the home and serves as primary caregiver. Discussed resources for in-home assistance after post-hospitalization home care nursing ceases. Son requested order for ensure nutrition supplements and a walker to assist with ambulation in the home. Provided support for son and answered questions regarding usp care assistance. INTERVENTION/PLAN: -Discussed HYDROELECTRIC MECHANIC supportive role/availability as member of [facility] care team. -Supportive counseling offered to address caregiver stress, adjustment to caregiver role, caregiver guilt. Discussed the process of identifying a new normal since dementia diagnosis. -Explored family member concerns, which included home care assistance and activities to engage pt. -Identified anticipated care goals, son would like the pt to remain at home with increase in caregiver services if possible. -Education provided on the importance of self-care and respite. Discussed benefits of caregiver support groups. Provided information on local support groups currently offered virtually. -Reviewed home safety tips. Encouraged consideration of a medical alert system. -Assessed financial eligibility for PASSPORT services. Information for program and how to apply provided. -Provided education on advance directives, including Health Care Power of Work Order Detailer and Living Will. Reviewed steps to complete these documents. Pt agreeable to review, complete and bring copy into next [facility] medical appointment to be uploaded. IMPRESSION: Pleasant 77 year old year old patient. Pt and family appear able and motivated to follow up on recommendations as discussed. HYDROELECTRIC MECHANIC will remain available to address any questions/concerns. Contact information was provided. I spent a total of 30 minutes with the patient. Social work assessment/interventions rendered under the supervision of Dr. Nhi Stoddard. YULY Harper [facility] documented in this encounter [facility] 04-16-2023 Instructions Nikunj Flannery MD - 04/16/2023 5:04 PM EDT Recommend cutting down on the Donepezil to 5 mg daily. May consider low dose Seroquel at 12.5mg qhs to help with her sleep and agitation issues. documented in this encounter [facility] 04-16-2023 Nurse Note Edison Albarran is a 77 year old year old right handed woman Accompanied by: son. 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 Forgetfulness and is getting worse and irritability. Vital Signs: BP 133/52 Pulse (!) 51 Wt 42.6 kg (94 lb) BMI 18.36 kg/m documented in this encounter [facility] 04-16-2023 History of Present illness Narrative Images from the original note were not included. [facility] New Patient Evaluation Date: April 16, 2023 Patient Name: Edison Albarran [facility] was asked by Dr. Calzada to evaluate Edison Albarran. Our recommendations of care will be communicated by shared medical record. Reason for Evaluation/Chief complaint: cognitive decline and agitation Accompanied by: Oldest son Casey who lives with her. SUBJECTIVE: HPI: Edison Albarran is a 77 year old Right handed female who presents to the [facility] for an initial evaluation. Patient has been seen and referred by Dr. Mally Calzada. Patient has a pertinent PMHx significant for GERD, Hypothyroidism, and Depression. Today's visit: She was admitted about 18 months ago in the hospital after that they have noted a gradual decline. She was apparently acting weird and was taken to the [facility] for evaluation about 1.5 years ago. She misplaces objects and thinks someone else is taking them. She forgets to take her meal meds. She forgets her medications. She gets agitated.The son has noted the changes in about 18 months but has noted a worsening in the past year. She is on Donepezil 10 mg daily she was started on the same 2 month. She manages her medication. She is taking it now that she has the pill pack. She is losing her balance. She states she has issues with her equilibrium. She has had multiple falls. She was given a walker about 18 months ago. She started using it in the past year. She is having issues driving. She only drive locally. She does not drive out of her city. She is having issues recently with balancing check books. She has fallen for some phone scams and needed to get it fixed this happened 6 months. She had a jaw surgery and some pain in her jaw after the surgery about 3 years ago . She reportedly has had poor oral intake after the surgery. She drinks some ensure to help with nutrition. She recently was hospitalized in early March was discharged with home health . She is getting some therapy at home. She is unsure if the therapy is helping. Short-term Memory: Repeats questions/statements: No Misplacing items around the house: YES Difficulty remembering details of recent conversations within a few hours: YES Difficulty remembering names of familiar people (not family or friends): YES Missed some appointments or major events due to memory changes: YES Language: Word-finding difficulty: NO Fluency: NO Difficulty understanding conversations: NO Difficulty with reading or writing: NO Difficulty with reading comprehension: NO Mood: slightly impaired . She has been agitation in the past 18 months. She thinks someone stole her things that she has misplaced. Neurobehavioral symptoms: Patient has been hallucinations that there is someone knocking at her door when there is no one at the door. She also occassionally hears someone turing knobs etc at home. Sleep: States sleep is poor. She takes melatonin. REVIEW OF SYSTEMS: Weight change/Appetite: Lost weight. According to patient report 40 pounds after recent hospitalization. Hearing: no hearing loss Vision: poor vision and cataract Constipation, Diarrhea: no Incontinence: no Chest pain: No Edema: No Dyspnea: No Falls/injuries/accidents: Multiple falls recently. She states her top of the head fells blank. This has been going on for past 2 years. She occassionally hits her head. She is unsure if she has LOC with these spells. NEURO: SEE HPI OUTPATIENT MEDICATIONS Current Outpatient Medications on File Prior to Visit Medication Sig WALKER ROLLATOR SEAT WITH 6 WHEELS - RED Dx: R26.81, Z91.81 gabapentin (NEURONTIN) 300 mg capsule Take 300 mg by mouth daily at bedtime. omeprazole (PRILOSEC) 40 mg capsule Take 1 capsule by mouth twice daily. Take 30-60 minutes before breakfast and dinner on an empty stomach. potassium chloride SR (MICRO-K) 10 mEq CR capsule Take 2 capsules by mouth once daily. atorvastatin (LIPITOR) 40 mg tablet Take 1 tablet by mouth daily at bedtime. For cholesterol. FLUoxetine (PROZAC) 40 mg capsule Take 1 capsule by mouth once daily. levothyroxine (SYNTHROID) 50 mcg tablet Take 1 tablet by mouth daily before breakfast. Mon-Sat and none on Saturday, Saturday donepezil (ARICEPT) 10 mg tablet Take 1 tablet by mouth daily at bedtime. gabapentin (NEURONTIN) 300 mg capsule Take 1 capsule by mouth daily at bedtime for 90 days. cyanocobalamin (VITAMIN B-12) 500 mcg tablet Take 1 tablet by mouth once daily. mirabegron (MYRBETRIQ) 50 mg Tb24 Take 1 tablet by mouth once daily. cyclobenzaprine (FLEXERIL) 10 mg tablet Take 1 tablet by mouth every 8 hours as needed for muscle spasm (or pain). wheat dextrin (BENEFIBER HEALTHY SHAPE) 5 gram/7.4 gram powd Take 2 teaspoonsful by mouth once daily. amino acids (AMINO ACID ORAL) Take 3 g by mouth once daily. Peptide powder VITAMIN E ACETATE ORAL Take 10 mg by mouth once daily. ascorbic acid (VITAMIN C ORAL) Take 90 mg by mouth once daily. Melatonin 5 mg cap Take 1 capsule by mouth daily at bedtime. aspirin, enteric coated (ADULT LOW DOSE ASPIRIN) 81 mg EC tablet Take 1 tablet by mouth once daily. Current Facility-Administered Medications on File Prior to Visit Medication menthol-cetylpyridinium 1 Lozenge (CEPACOL LOZENGES) MEDICAL HISTORY PAST MEDICAL HISTORY Diagnosis Date Advance directive discussed with patient 03/21/202203/2022 Agitation 02/02/2020 Aneurysm of right subclavian artery (HCC) At risk for falling 04/12/2023 Bilateral carotid artery disease (HCC) 12/20/2015 US 12/2015: 20-40% on Rt and 40-60% on left. US 01/2017 unchanged. Chronic bilateral low back pain with sciatica 12/26/2016 Constipation 07/09/2018 after starting lipitor Decreased sensation of lower extremity 01/04/2016 Dementia without behavioral disturbance (HCC) 12/20/2022 Diabetic eye exam (HCC) 09/24/2022 Last done 08/08/22 Essential hypertension 2015 Essential tremor 09/18/2021 Ex-smoker 2015 1/2-1 PPD since early 50s, quit January 2018 Failure to thrive in adult 03/02/2023 Hematuria 12/14/2015 Urology w/u neg. Hypothyroidism (acquired) 2015 Living will on file 03/21/2022 DPA; Casey (son) Lymphocytic colitis 05/16/2020 Possibly Zoloft related. Mediastinal lymphadenopathy 08/04/2018 Prominent Mediastinal lymphadenopathy noted on CT 08/01/18. CT 01/05/2019 no mediastinal lymphadenopathy Mixed hyperlipidemia 2015 Moderate aortic insufficiency 01/19/[address] Cordoba Osteoporosis 05/26/2015 Pain in both hands 12/26/2016 Pain in joint, multiple sites 12/07/2015 On neurontin Recurrent major depressive disorder, in remission ([facility]) 07/01/2018 Spinal stenosis, lumbar region, with neurogenic claudication 01/23/2016 Stage 3a chronic kidney disease (HCC) 09/20/2022 Type 2 diabetes mellitus with stage 3a chronic kidney disease ([facility]) 09/20/2022 Type 2 diabetes mellitus without complication, without long-term current use of insulin ([facility]) 12/07/2015 Unsteady gait 03/06/2023 Urgency of urination 06/13/2016 SURGICAL HISTORY PAST SURGICAL HISTORY Procedure Laterality Date 2D ECHO (EXEP) 09/2020 EF=64%, Mild Noe dysf and La enlargment, 2+ AR CARPAL TUNNEL RIGHT WRIST COLONOSCOPY 2010 repeat 10 yrs COLONOSCOPY FLX DX W/COLLJ SPEC WHEN PFRMD 04/21/2020 Colonoscopy CORRECTION OF BUNION Left ESOPHAGOGASTRODUODENOSCOPY TRANSORAL DIAGNOSTIC 04/21/2020 EGD FECAL OCCULT BLOOD TEST 01/01/2018 negative HYSTERECTOMY HX 1970 one ovary removed LEXISCAN STRESS TEST 11/21/2020 negative PAST SURGICAL HISTORY OF 1972 appendectomy PAST SURGICAL HISTORY OF 1987 breast lump, benign STRESS TEST 07/09/2016 WNL TUMOR REMOVAL (SPECIFY LOCATION) HX 2002 stomach SOCIAL HISTORY Social History Tobacco Use Smoking status: Some Days Packs/day: 0.50 Types: Cigarettes Smokeless tobacco: Never Tobacco comments: Roughly one pack per week Vaping Use Vaping Use: Never used Substance Use Topics Alcohol use: Not Currently Drug use: Never 1/2 a pack a day started smoking 28 years ago .Alcohol couple of times of year. No history of substance abuse. -Advanced directives/POA: None FAMILY HISTORY FAMILY HISTORY Problem Relation Age of Onset Breast Cancer Mother over 50 Hypertension Mother Lipids Mother Osteoporosis Mother Thyroid Mother Cancer Father stomach Cancer Brother lung Alzheimer's Disease Brother dementia Diabetes Brother No known family history of dementia. ALLERGIES ALLERGIES Allergen Reactions Bactrim [Sulfametho* Other: See Comments Unknown. Cephalexin Other: See Comments Unknown. Citalopram Swelling Throat swelled Cymbalta [Duloxetin* Other: See Comments Made her feel groggy. OUTSIDE RECORDS: No outside records provided to review. INTERNAL RECORDS: The patient's electronic medical record was reviewed. The relevant details are summarized in this note. Functional Evaluation: B-ADLs: (I=independent,A=assistance,D=dep endent) ?Bathing: I , Dressing: I , Toileting: I , Transferring: I , Continence: I , Feeding: I I-ADLs: Transportation: A, Medications: I with a pill pack, Handle Finances: A OBJECTIVE: PHYSICAL EXAM: Vitals: BP 133/52 Pulse (!) 51 Wt 42.6 kg (94 lb) BMI 18.36 kg/m General appearance: Sitting upright. Appears stated age. No acute distress. Non-toxic appearing. No hypomimia. Lungs: Non Labored respiration Heart: Bradycardic Neuro: Mental Status: Alert, oriented to person, place,but not to time . Follows commands. Answering questions appropriately. No dysarthria or hypophonia. Shay Cognitive Assessment (MoCA) Version 1 Total Score: 10/05 Visuospatial/Executive Alternating [place] Making: Patient is unable to successfully complete the task. (0) Visuoconstructional Skills (Shape): Patient is unable to successfully complete the task. (0) Visuoconstructional Skills (Clock): Abnormal-Numbers, Hands Visuospatial/Executive Score: 1/5 Naming The patient was able to name: Camel or Dromedary, Lion, Rhinoceros or Rhino Naming Score: 3/3 Memory Trials Memory Trial (1): The patient was able to correctly register: 3/5 Memory Trial (2): The patient was able to correctly register: 4/5 Attention Forward Digit Span: Correct (+1) Backward Digit Span: Correct (+1) Vigilance: Correct (+1) Attention - Serial 7's: Zero (0) Correct subtractions (0) Attention Score: 3/6 Language Sentence Repetition (1): Incorrect (0) Sentence Repetition (2): Incorrect (0) Verbal Fluency: Patient produced 4 words. (+0) Language Score: 0/3 Abstraction Abstraction (1): Patient successfully related similarity. (+1) Abstraction (2): Patient unable to relate similarity. (0) Abstraction Score: 1/2 Delayed Recall Word 1: Required multiple choice- 'nose, face, hand' (0) Word 2: Required multiple choice- 'leticia, cotton, velvet' (0) Word 3: Required multiple choice- 'holiness, school, hospital' (0) Word 4: Unable to recall (0) Word 5: Unable to recall (0) Delayed Recall Score: 0/5 Orientation The patient was able to answer correctly: month, city, exact place (name of hospital, clinic, office). Orientation Score: 3/6 Education less than or equal to 12th grade: +1 Semantic Fluency Patient produced 10 words. MoCA Past Scores MoCA 04/16/2023 MOCA TOTAL SCORE 12 out of 30 Visuospatial/ Executive 1 Naming 3 Attention 3 Language 0 Abstraction 1 Delayed Recall 0 Orientation 3 Education Level 1 Cranial Nerves: EOMI CN VII: Face symmetric, no ptosis or facial droop CN IX/CN X: Normal palate elevation CN XI: Normal shoulder shrug CN XII: Normal tongue strength Motor Exam: No cog-wheeling. No rest tremor. No significant postural or intention tremor. She had some limitation with finger tapping and stated it was limited due to her arthritis. No abnormal movements, jerks. At least antigravity strength in all extremities . Sensory: Intact to light touch in all extremities. Coordination: FNF with no ataxia or dysmetria. Gait: She walks with a walker. She needs assistance to get up using the walker. NEUROPSYCHOLOGY: N/a IMAGING REVIEW: 12/19/2022 4:45 PM - Radiology, [place] In Impression IMPRESSION: No acute intracranial findings. Moderate background chronic microvascular ischemic change. Moderate generalized brain volume loss, some progression since prior study. LABS Hemoglobin A1C Date Value Ref Range Status 03/21/2023 5.5 4.3 - 5.6 % Final Comment: [place] Diabetes [employer] guidelines indicate that patients with HgbA1c in the range 5.7-6.4% are at increased risk for development of diabetes, and intervention by lifestyle modification may be beneficial. HgbA1c greater or equal to 6.5% is considered diagnostic of diabetes. TSH Date Value Ref Range Status 03/21/2023 0.439 0.270 - 4.200 mIU/L Final Vitamin B12 Date Value Ref Range Status 11/21/2022 398 232 - 1,245 pg/mL Final Plan ASSESSMENT: Ms. Albarran is a 77 year old FEMALE with pertinent PMHx significant for GERD, Hypothyroidism, and Depression. She is here for worsening memory complaints in the past 1 year and 6 months. MRI in December 2022 with moderate white matter disease TSH March 2023 WNL B12 Nov 2022 WNL Impression: 77 yo female with a gradual 18 month history of worsening memory symptoms along with mood changes with agitation. MOCA with visuo spatial,attention,delayed recall, attention, and orientation deficits. Also noted decline in her IADL's with issues with driving,managing check books and falling for phone scams. MRI with vascular changes with moderate white matter disease. Clinical picture likely consistent with early stages of dementia likely vascular although a mixed picture with Alzheimer's is also possible. May consider Lumbar puncture with biomarker's for definitive diagnosis but they would like to defer for now. PLAN: Recommend cutting down on the Donepezil to 5 mg daily due to low HR and issues with dizziness and falls although reportedly these was present even before initiation of Donepezil. [employer] consult to help provide resources. May consider low dose Seroquel at 12.5mg qhs to help with her sleep and agitation issues. May consider increasing to 25 mg qhs if tolerating in the future. Nikunj Flannery M.D [facility] Fellow Attending Note: Bullard findings confirmed. Patient examined. Discussed with the fellow and the patient. Plan as outlined. Aubrie Davila MD I spent a total of 60 minutes on the date of the service which included preparing to see the patient, [id number] patient care, completing clinical documentation, obtaining and/or reviewing separately obtained history, performing a medically appropriate examination, counseling and educating the patient/family/caregiver, ordering medications, tests, or procedures, communicating with other HCPs (not separately reported), independently interpreting results (not separately reported), communicating results to the patient/family/caregiver, and care coordination (not separately reported). Voice recognition software was used to compose this office note. Please excuse any unintended typographical errors. Aubrie Davila MD Geriatric Medicine [facility] 04/16/2023 1:59 PM CC: Referring Physician: Mally Calzada [address] [facility] [id number] PCP: Kurt Saravia [address] [place] [address] Patient Entered Data: Patient-Reported No flowsheet data found. Activities of Daily Living (ADL) No flowsheet data found. PROMIS-10 No flowsheet data found. PHQ-9 PHQ-9 All Questions 09/20/2022 08/04/2018 Little interest or pleasure in doing things 0 0 Feeling down, depressed, or hopeless 1 - Trouble falling or staying asleep, or sleeping too much - - Feeling tired or having little energy - - Poor appetite or overeating - - Feeling bad about yourself - or that you are a failure or have let yourself or your family down - - Trouble concentrating on things, such as reading the newspaper or watching television - - Moving or speaking so slowly that other people could have noticed. Or the opposite - being so fidgety or restless that you have been moving around a lot more than usual - - (0-4) minimal depression (5-9) mild depression (10-14) moderate depression (15-19) moderately severe depression (20-27) severe depression Full History of PHQ-9 Scores No flowsheet data found. Sleep No flowsheet data found. No flowsheet data found. Caregiver-Reported No flowsheet data found. Dementia Severity Rating Scale (DSRS) No flowsheet data found. documented in this encounter [facility] 04-12-2023 Miscellaneous Notes Faxed order, all demographics, and office note 03/06 where it states patient is unsteady gait Yoko York Ma Addended by: KURT SARAVIA on: 04/12/2023 04:50 PM Modules accepted: Orders please fax order for a rollator walker and patient demographics to: [facility] fax number: [phone] phone number: [phone] Bassem Saravia, Patient would benefit from obtaining a rollator walker to improve safety, stability and independence for functional mobility and to reduce risk for falls. Patients son had been given one from a friend, however it is too big and not an appropriate size for the patient. If you are in agreement, can you please fax an order for a rollator walker and patient demographics to: [facility] fax number: [phone] phone number: [phone] Feel free to contact me with any questions or concerns. Thank you! Bri Kaylen, PT documented in this encounter [facility] 04-12-2023 Miscellaneous Notes SITUATION: son present in home but not in room during today's visit. patient reports the following since the last homecare visit: medications/allergies--no changes, no fall. patient reports that her pain is not too bad today. Patient reports that she feels like she is doing pretty good. Patient reports her pain is about a 3-4/10 this date. Patient reports that she has been using her rollator walker on and off, unable to locate it during PT visit this date, reports that she may have left it in her vehicle. Patient demonstrates improved gait this date compared to last visit. BACKGROUND: Diagnoses (reason for Home Care): Hypokalemia Weight Bearing/Precaution Changes: no changes ASSESSMENT: Focus of visit: ambulation training, reviewed standing HEP and added SLS with one UE support this date. Patient easily distracted throughout visit and requires verbal cues to stay on task. This therapist sent telephone encounter to MD this date requesting an order be faxed to [employer] for a rollator walker for the patient. Plan of care, goals, and visit frequency reviewed and agreed upon with patient and/or caregiver. Current Discharge Plan: independent with home exercise program/caregiver assistance Anticipate discharge by 04/27/2023 RECOMMENDATION: Next visit to focus on: review HEP, ambulation training, add balance activities as able to tolerate See intervention summary for intervention/education details. documented in this encounter [facility] 04-11-2023 Miscellaneous Notes SITUATION: Prison routine visit completed today. son also present during today's visit. patient and caregiver reports the following: Allergies--reviewed Medications--reviewed current medications Falls--None DME-NONE BACKGROUND: Reason for Home Care: ASSESSMENT: SN greeted at door by caregiver. Upon entrance patient found in chair Patient appears in no acute distress. Vitals (see flow sheet for details): stable SN findings today: Pt presents today in her home her son is present. She expresses not eating much and having arthritic pain constantly. Educated pt on eating smaller more frequent meals trying foods she may not have previously liked, continue with protien filled foods. Pt expressed understanding See intervention summary for education details. Patient demonstrated a need for further skilled SN services for chronic disease management & education and medication education. Current Discharge plan: self-care and family support RECOMMENDATION: Next visit to focus on (be specific): how is nutrition, how is swallowing? documented in this encounter [facility] 04-08-2023 History and physical note FOLLOW UP OFFICE VISIT REASONS FOR VISIT: Lymphocytic colitis Dysphagia PATIENT SUMMARY: Edison Albarran is a 77 year old female with a history of hypothyroidism, moderate AR, DMT2 and depression who presents to the GI clinic for follow up of lymphocytic colitis and dysphagia. She was initially seen in the GI clinic in 05/2020 for diarrhea with nocturnal stools, intermittent fecal incontinence and unintentional weight loss (25+ lbs) x 5-6 months. Random colon biopsies during colonoscopy in 04/2020 revealed lymphocytic colitis. Budesonide caused significant constipation but colitis symptoms remained in control off therapy until they recurred in 05/2022. She was put on a lower dose budesonide taper, but stopped this early due to concerns about weight gain of 10 lbs. She was last seen in the GI clinic in 09/2022. She was having intermittent diarrhea and fecal urgency, largely driven by stress. A trial of Benefiber was recommended to treat possible overlapping IBS-D. In 12/2022, she sent a message to the office with concerns of dysphagia. Follow up EGD revealed a benign intrinsic stenosis at the level of the cricopharyngeus. Dilated with a 60-Fr Golden dilator. INTERVAL HISTORY: Since her dilation, dysphagia has improved by only 35%. This occurs mainly with pills and some solid food. She does not have lower dentures. She lost 20+ lbs over the past 6 months, which she attributes to food avoidance in the setting of dysphagia. Contrasted CT abd/pelv earlier this year did not reveal any acute intraabdominal pathology to explain this weight loss. She currently averages 1-2 soft, formed stools/day on current regimen (Benefiber + Vital protein collagen peptides). These are occasionally incomplete, but urgency is under reasonable control. She is content with her bowel habits currently. Past Clinical Work-up: Component Latest Ref Rng & Units 09/13/2022 11/30/2022 03/01/2023 03/03/2023 WBC 3.70 - 11.00 k/uL 6.68 8.62 6.43 4.83 RBC 3.90 - 5.20 m/uL 4.11 4.17 3.89 (L) 3.57 (L) Hemoglobin 11.5 - 15.5 g/dL 12.3 12.3 11.6 10.7 (L) Hematocrit 36.0 - 46.0 % 38.4 37.4 34.8 (L) 32.8 (L) MCV 80.0 - 100.0 fL 93.4 89.7 89.5 91.9 MCH 26.0 - 34.0 pg 29.9 29.5 29.8 30.0 MCHC 30.5 - 36.0 g/dL 32.0 32.9 33.3 32.6 RDW-CV 11.5 - 15.0 % 12.8 13.7 13.3 13.7 Platelet Count 150 - 400 k/uL 228 271 250 184 MPV 9.0 - 12.7 fL 10.1 9.2 9.2 9.4 Component Latest Ref Rng & Units 09/13/2022 11/30/2022 12/04/2022 03/01/2023 03/02/2023 Protein, Total 6.3 - 8.0 g/dL 6.6 6.4 Albumin 3.9 - 4.9 g/dL 4.3 4.2 Calcium 8.5 - 10.2 mg/dL 9.4 9.3 8.9 8.3 (L) Bilirubin, Total 0.2 - 1.3 mg/dL 0.6 0.5 Alkaline Phosphatase 34 - 123 U/L 130 (H) 112 AST 13 - 35 U/L 30 27 ALT 7 - 38 U/L 15 16 Glucose 74 - 99 mg/dL 118 (H) 103 (H) 105 (H) 88 BUN 7 - 21 mg/dL 8 10 4 (L) 4 (L) Creatinine 0.58 - 0.96 mg/dL 1.06 (H) 0.91 0.88 0.80 Sodium 136 - 144 mmol/L 143 138 139 143 Potassium 3.7 - 5.1 mmol/L 4.3 3.4 (L) 4.2 2.7 (L) 3.1 (L) Chloride 97 - 105 mmol/L 108 (H) 101 101 109 (H) CO2 22 - 30 mmol/L 20 (L) 28 26 26 Anion Gap 9 - 18 mmol/L 15 9 12 8 (L) eGFR >=60 mL/min/1.73m 54 (L) 65 67 76 EGD: 12/11/22: for dysphagia: - Benign-appearing proximal esophageal stenosis. Dilated with a 60-Fr Golden. - Erythematous mucosa in the antrum. Biopsied. - The examination was otherwise normal. Path: Stomach, biopsy: -Portions of oxyntic type gastric mucosa with PPI like effect -Portions of antral type gastric mucosa with reactive gastropathy -Negative for Helicobacter pylori organisms on routine staining CT abd/pel w/IV cont: 11/30/22: Liver: Fatty appearance. Unchanged subcentimeter hypodensity left lobe. Biliary: No bile duct dilation. Partially contracted gallbladder. Spleen: No mass. No splenomegaly. Pancreas: No mass or duct dilation. GI tract: No dilation or wall thickening. Appendix not identified. Fluid throughout the colonic lumen including rectosigmoid. IMPRESSION: Distal colonic luminal fluid indicates loose stools not otherwise specific. Normal colonic wall thickness. Distal colonic endoluminal fluid present on the prior CT as well. Mild colitis possible. Similar fatty appearance of the liver. Esophagram: 10/09/22: for dysphagia: Limited examination. Holdup of barium tablet at the gastroesophageal junction, as described. Study was aborted as the patient was unable to complete. Colon: 04/21/20 Dr. Nunez: Normal colon. Path: Colon random bx: fragments of benign colonic mucosa with a mild increase in intraepithelial lymphocytes and very mild acute nonspecific colitis. Comment: The lamina propria is somewhat expanded by chronic and very mild acute inflammation with rare cryptitis. EUS: 09/24/01: Dr. Tin Wall: The lesion was visulaized again endoscopically. It appeared umblicated and raised submucosal lesion. Covered with normal mucosa. No ulceration seen. Scanning of this area revealed the folloings: 1. Size 16.7 x 7.8 mm. 2. Originating from the muscularis propria. 3. Central umlication was seen in the middle of this mass. 4. The mass did not expand beyond the outer layer of the muscularis. Bxs taken from the lesion at the end of procedure. Patient tolerated procedure well. Path: 09/24/01: Gastric submucosal lesion: Fragment of gastric mucosa showing chronic gastritis with focal active cryptitis and smooth muscle hyperplasia suggestive of chronic atrophic gastritis. ALLERGIES Allergen Reactions Bactrim [Sulfametho* Other: See Comments Unknown. Cephalexin Other: See Comments Unknown. Citalopram Swelling Throat swelled Cymbalta [Duloxetin* Other: See Comments Made her feel groggy. PAST MEDICAL HISTORY Diagnosis Date Advance directive discussed with patient 03/21/202203/2022 Agitation 02/02/2020 Aneurysm of right subclavian artery (HCC) Bilateral carotid artery disease (HCC) 12/20/2015 US 12/2015: 20-40% on Rt and 40-60% on left. US 01/2017 unchanged. Chronic bilateral low back pain with sciatica 12/26/2016 Constipation 07/09/2018 after starting lipitor Decreased sensation of lower extremity 01/04/2016 Dementia without behavioral disturbance (HCC) 12/20/2022 Diabetic eye exam ([facility]) 09/24/2022 Last done 08/08/22 Essential hypertension 2015 Essential tremor 09/18/2021 Ex-smoker 2015 1/2-1 PPD since early 50's, quit January 2018 Failure to thrive in adult 03/02/2023 Hematuria 12/14/2015 Urology w/u neg. Hypothyroidism (acquired) 2015 Living will on file 03/21/2022 DPA; Casey (son) Lymphocytic colitis 05/16/2020 Possibly Zoloft related. Mediastinal lymphadenopathy 08/04/2018 Prominent Mediastinal lymphadenopathy noted on CT 08/01/18. CT 01/05/2019 no mediastinal lymphadenopathy Mixed hyperlipidemia 2015 Moderate aortic insufficiency 01/19/[address] Cordoba Osteoporosis 05/26/2015 Pain in both hands 12/26/2016 Pain in joint, multiple sites 12/07/2015 On neurontin Recurrent major depressive disorder, in remission (HCC) 07/01/2018 Spinal stenosis, lumbar region, with neurogenic claudication 01/23/2016 Stage 3a chronic kidney disease (HCC) 09/20/2022 Type 2 diabetes mellitus with stage 3a chronic kidney disease (HCC) 09/20/2022 Type 2 diabetes mellitus without complication, without long-term current use of insulin (HCC) 12/07/2015 Unsteady gait 03/06/2023 Urgency of urination 06/13/2016 PAST SURGICAL HISTORY Procedure Laterality Date 2D ECHO (EXEP) 09/2020 EF=64%, Mild Noe dysf and La enlargment, 2+ AR CARPAL TUNNEL RIGHT WRIST COLONOSCOPY 2010 repeat 10 yrs COLONOSCOPY FLX DX W/COLLJ SPEC WHEN PFRMD 04/21/2020 Colonoscopy CORRECTION OF BUNION Left ESOPHAGOGASTRODUODENOSCOPY TRANSORAL DIAGNOSTIC 04/21/2020 EGD FECAL OCCULT BLOOD TEST 01/01/2018 negative HYSTERECTOMY HX 1970 one ovary removed LEXISCAN STRESS TEST 11/21/2020 negative PAST SURGICAL HISTORY OF 1971 appendectomy PAST SURGICAL HISTORY OF 1987 breast lump, benign STRESS TEST 07/09/2016 WNL TUMOR REMOVAL (SPECIFY LOCATION) HX 2001 stomach FAMILY HISTORY Problem Relation Age of Onset Breast Cancer Mother over 50 Hypertension Mother Lipids Mother Osteoporosis Mother Thyroid Mother Cancer Father stomach Cancer Brother lung Alzheimer's Disease Brother dementia Diabetes Brother Social History Tobacco Use Smoking status: Some Days Types: Cigarettes Smokeless tobacco: Never Tobacco comments: Roughly one pack per week Vaping Use Vaping Use: Never used Substance Use Topics Alcohol use: Not Currently Drug use: Never Current Outpatient Medications Medication Sig potassium chloride SR (MICRO-K) 10 mEq CR capsule Take 2 capsules by mouth once daily. atorvastatin (LIPITOR) 40 mg tablet Take 1 tablet by mouth daily at bedtime. For cholesterol. FLUoxetine (PROZAC) 40 mg capsule Take 1 capsule by mouth once daily. levothyroxine (SYNTHROID) 50 mcg tablet Take 1 tablet by mouth daily before breakfast. Mon-Sat and none on Saturday, Saturday donepezil (ARICEPT) 10 mg tablet Take 1 tablet by mouth daily at bedtime. gabapentin (NEURONTIN) 300 mg capsule Take 1 capsule by mouth daily at bedtime for 90 days. cyanocobalamin (VITAMIN B-12) 500 mcg tablet Take 1 tablet by mouth once daily. mirabegron (MYRBETRIQ) 50 mg Tb24 Take 1 tablet by mouth once daily. omeprazole (PRILOSEC) 40 mg capsule Take 1 capsule by mouth once daily. cyclobenzaprine (FLEXERIL) 10 mg tablet Take 1 tablet by mouth every 8 hours as needed for muscle spasm (or pain). wheat dextrin (BENEFIBER HEALTHY SHAPE) 5 gram/7.4 gram powd Take 2 teaspoonsful by mouth once daily. amino acids (AMINO ACID ORAL) Take 3 g by mouth once daily. Peptide powder VITAMIN E ACETATE ORAL Take 10 mg by mouth once daily. ascorbic acid (VITAMIN C ORAL) Take 90 mg by mouth once daily. Melatonin 5 mg cap Take 1 capsule by mouth daily at bedtime. aspirin, enteric coated (ADULT LOW DOSE ASPIRIN) 81 mg EC tablet Take 1 tablet by mouth once daily. No current facility-administered medications for this visit. Facility-Administered Medications Ordered in Other Visits Medication Dose Route Frequency menthol-cetylpyridinium 1 Lozenge (CEPACOL LOZENGES) 1 Lozenge ORAL PRN I have confirmed and edited, if necessary, the PFSH obtained by others. REVIEW OF SYSTEMS CONSTITUTIONAL: Negative for unintentional weight loss, malaise or fevers HEENT: Negative for frequent/significant headaches, changes in hearing/vision, nose bleeds or other nasal problems RESPIRATORY: Negative for cough, hemoptysis, wheezing or dyspnea CARDIOVASCULAR: Negative for chest pain, palpitations, syncope or lightheadedness GI: See HPI : Negative for dysuria, polyuria, incontinence or hematuria MUSCULOSKELETAL: Negative for arthralgia or myalgia INTEGUMENTARY/SKIN: Negative for rash or skin lesion HEMATOLOGY/LYMPHOLOGY: Negative for prolonged bleeding, easy bruising or swollen nodes ENDOCRINE: Negative for cold/heat intolerance, polydipsia or goiter NEURO: Negative for encephalopathy, tremor or gait abnormality PSYCH: Negative for new changes in mood or affect PHYSICAL EXAM: BP 108/59 Pulse 64 Wt 43 kg (94 lb 12.8 oz) BMI 18.51 kg/m Gen: Comfortable female in NAD Head: Normocephalic, atraumatic Skin: No jaundice, rashes or skin lesions Eyes: Sclera anicteric, conjunctiva pink Neck: Supple, no palpable lymphadenopathy or goiter Heart: RRR, no murmurs, rubs or gallops Lungs: CTAB, non-labored breathing Abd: Soft, non-distended, non-tender, bowel sounds present, no palpable masses or organomegaly Ext: No lower extremity edema, clubbing or cyanosis. Extremities are warm and well-perfused Neuro: Alert and oriented, no tremor or gross focal motor deficits Psych: Congruent mood and affect, appropriate insight and judgement ASSESSMENT/PLAN: Edison Albarran is a 77 year old female with a history of hypothyroidism, moderate AR, DMT2 and depression who presents to the GI clinic for follow up of lymphocytic colitis and dysphagia. 1. Lymphocytic colitis Diarrhea and urgency are currently well-controlled. Budesonide has been very effective at controlling her colitis symptoms, but does not wish to take this due to concerns about constipation and weight gain. Risk factors for treatment-refractory microscopic colitis include medication triggers (SSRI, aspirin, PPI) and secondhand smoke exposure. --Continue Benefiber 2-3 tsp/day --Drink at least 64 oz water every day --Minimize non-critical NSAID use. Do not stop aspirin unless instructed to do so. --Minimize/avoid exposure to secondhand smoke --If symptoms worsen in the future, a trial of Questran will be considered 2. Pill dysphagia 3. Esophageal stricture EGD (12/2022) was notable for a benign proximal esophageal stricture at the level of the cricopharyngeus. Dilated with a 60-Fr Golden with post-dilation mucosal disruption. Clinically 35% improved after dilation. The remaining dysphagia she experiences is best explained by lack of working dentures. Will see if a trial of twice daily omeprazole makes a difference in this dysphagia. --Increase omeprazole to 40 mg BID x 2 months. If symptoms are no different, reduce dose back to 40 mg/day --Chew food completely and slowly --Take potassium and other medication with a 12 oz glass of water. Sit upright while swallowing pills and for 30 minutes afterwards. Follow up with me in 3 months Karlos Hill MD Associate Staff, Department of Gastroenterology and Hepatology [facility] [place] documented in this encounter [facility] 04-05-2023 Miscellaneous Notes Patient reports that she fell on Saturday around noon because one of her dogs laid down behind her in the kitchen and she tripped over the dog and fell to the floor. Patient reports that she hit the L side of her head and her LUE on the floor. Patient reports that she was able to get herself up off the floor. Patient has a small scab next to her left eye and bruise on her L knee. Patient reports that she has had some increased pain since her fall. Patient denies any issues with movement or vision changes. Education provided on importance of using rollator at all times to decrease risk for falls and safety: importance of keeping pathways clear and ensuring dogs are not in pathway prior to walking. Patient requires continued home health PT POC to extend 1w3 to continue to address deficits in strength, balance, endurance, safety and independence for functional mobility. Patient and son in agreement with PT POC. Thank you, Bri Abdullahi, PT documented in this encounter [facility] 04-03-2023 Miscellaneous Notes SITUATION: son present during today's visit. patient reports the following since the last homecare visit: medications/allergies--no changes, fall. Patient reports that she fell on Saturday around noon because one of her dogs laid down behind her and she tripped over the dog and fell to the floor. Patient reports that she hit the L side of her head and her LUE on the floor. Patient reports that she was able to get herself up off the floor. Patient has a small scab next to her left eye and bruise on her L knee. Patient reports that she has had some increased pain since her fall. Patient denies any issues with movement. Education provided on importance of using rollator at all times to decrease risk for falls and safety: importance of keeping pathways clear and ensuring dogs are not in pathway prior to walking Patients rollator is too high. Patient would benefit from a new rollator that could be adjusted to appropriate height. Call made to [employer] and spoke with Taj during visit DME Providers: [address] [place] [address] [facility] [phone] [facility] [phone] 20% coinsurance Dr. Saravia is PCP BACKGROUND: Diagnoses (reason for Home Care): Hypokalemia Weight Bearing/Precaution Changes: no changes ASSESSMENT: Focus of visit: PT reassessment completed TU.2 seconds without AD, unsteady gait Patient requires continued home health PT POC to extend 1w3 to continue to address deficits in strength, balance, endurance, safety and independence for functional mobility. Plan of care, goals, and visit frequency reviewed and agreed upon with patient and/or caregiver. Current Discharge Plan: family support Anticipate discharge by 04/27/2023 RECOMMENDATION: Next visit to focus on: review HEP, continued ambulation training with rollator, continue education on fall prevention strategies. See intervention summary for intervention/education details. documented in this encounter [facility] 03-30-2023 History of Present illness Narrative Patient's home health 485 form / care plan for certification period 03/07/2023 to 05/05/2023 reviewed and signed. Relevant medical records were reviewed. No changes were indicated documented in this encounter [facility] 03-27-2023 Miscellaneous Notes SITUATION: only patient present during today's visit. patient reports the following since the last homecare visit: medications/allergies--no changes, no fall. patient reports feeling a little tired, states she was out in her yard earlier pulling weeds. BACKGROUND: Diagnoses (reason for Home Care): Admitted frm observation status to [facility] on 03/01 - 03/03/2023 following fall at home/hypokalemia/ failure to thrive in adult Past Medical History: hypothyroidism, aneurysm, constipation, LBP with sciatic, ex-smoker, HTN, stenosis, colitis, CKDIII, dementia, DM2 Weight Bearing or Surgical Precautions: falls ASSESSMENT: Focus of visit: Standing LE HEP review, amb in home without device. Patient easily distractible, stays on task with cueing. Plan of care, goals, and visit frequency reviewed and agreed upon with patient and/or caregiver. Current Discharge Plan:family support. Anticipate discharge by 04/06/23 RECOMMENDATION: Next visit to focus on discharge See intervention summary for intervention/education details. documented in this encounter [facility] 03-25-2023 Miscellaneous Notes Noted and okay. Hi SN [place] visit unmade this date at pt unavailable. Requesting visit to be reschedule for / of this week, [facility] SN will attempt to see her then. Thank you, Annie PINTO, RN documented in this encounter [facility] 03-22-2023 Miscellaneous Notes Patient notified and voiced understanding. Brenda Sanabria MA Let patient know recent labs were all ok. documented in this encounter [facility] 03-21-2023 Instructions Mayank Quintanilla APRN.ANTONY - 03/21/2023 9:58 AM EDT Continue current medications Complete labs Follow up in 6 months documented in this encounter [facility] 03-21-2023 History of Present illness Narrative Chief Complaint Patient presents with: 6 Month Exam HPI Edison Albarran is a 77 year old female who presents here today for Above Complaints.. Patient presents for routine follow up. Patient has a history of Carotid disease, constipation, dementia, HTN, HLP, Hypothyroidism and dysphagia. Patient reports she continues to have trouble swallowing despite having her esophagus stretched. She currently follow with GI. Patient was in ER a couple weeks ago where she was noted to be hypokalemic. This has since resolved. Past medical history, appointments, medications, allergies reviewed. Previous Medical History PAST MEDICAL HISTORY Diagnosis Date Advance directive discussed with patient 03/21/202203/2022 Agitation 02/02/2020 Aneurysm of right subclavian artery (HCC) Bilateral carotid artery disease (HCC) 12/20/2015 US 12/2015: 20-40% on Rt and 40-60% on left. US 01/2017 unchanged. Chronic bilateral low back pain with sciatica 12/26/2016 Constipation 07/09/2018 after starting lipitor Decreased sensation of lower extremity 01/04/2016 Dementia without behavioral disturbance ([facility]) 12/20/2022 Diabetic eye exam ([facility]) 09/24/2022 Last done 08/08/22 Essential hypertension 2015 Essential tremor 09/18/2021 Ex-smoker 2015 1/2-1 PPD since early 50's, quit January 2018 Failure to thrive in adult 03/02/2023 Hematuria 12/14/2015 Urology w/u neg. Hypothyroidism (acquired) 2015 Living will on file 03/21/2022 DPA; Casey (son) Lymphocytic colitis 05/16/2020 Possibly Zoloft related. Mediastinal lymphadenopathy 08/04/2018 Prominent Mediastinal lymphadenopathy noted on CT 08/01/18. CT 01/05/2019 no mediastinal lymphadenopathy Mixed hyperlipidemia 2015 Moderate aortic insufficiency 01/19/[address] Cordoba Osteoporosis 05/26/2015 Pain in both hands 12/26/2016 Pain in joint, multiple sites 12/07/2015 On neurontin Recurrent major depressive disorder, in remission ([facility]) 07/01/2018 Spinal stenosis, lumbar region, with neurogenic claudication 01/23/2016 Stage 3a chronic kidney disease ([facility]) 09/20/2022 Type 2 diabetes mellitus with stage 3a chronic kidney disease ([facility]) 09/20/2022 Type 2 diabetes mellitus without complication, without long-term current use of insulin ([facility]) 12/07/2015 Unsteady gait 03/06/2023 Urgency of urination 06/13/2016 Previous Surgical History PAST SURGICAL HISTORY Procedure Laterality Date 2D ECHO (EXEP) 09/2020 EF=64%, Mild Noe dysf and La enlargment, 2+ AR CARPAL TUNNEL RIGHT WRIST COLONOSCOPY 2010 repeat 10 yrs COLONOSCOPY FLX DX W/COLLJ SPEC WHEN PFRMD 04/21/2020 Colonoscopy CORRECTION OF BUNION Left ESOPHAGOGASTRODUODENOSCOPY TRANSORAL DIAGNOSTIC 04/21/2020 EGD FECAL OCCULT BLOOD TEST 01/01/2018 negative HYSTERECTOMY HX 1970 one ovary removed LEXISCAN STRESS TEST 11/21/2020 negative PAST SURGICAL HISTORY OF 1972 appendectomy PAST SURGICAL HISTORY OF 1987 breast lump, benign STRESS TEST 07/09/2016 WNL TUMOR REMOVAL (SPECIFY LOCATION) HX 2001 stomach Family History FAMILY HISTORY Problem Relation Age of Onset Breast Cancer Mother over 50 Hypertension Mother Lipids Mother Osteoporosis Mother Thyroid Mother Cancer Father stomach Cancer Brother lung Alzheimer's Disease Brother dementia Diabetes Brother Patient Allergies ALLERGIES Allergen Reactions Bactrim [Sulfametho* Other: See Comments Unknown. Cephalexin Other: See Comments Unknown. Citalopram Swelling Throat swelled Cymbalta [Duloxetin* Other: See Comments Made her feel groggy. Current Medications Current Outpatient Medications on File Prior to Visit Medication Sig potassium chloride SR (MICRO-K) 10 mEq CR capsule Take 2 capsules by mouth once daily. atorvastatin (LIPITOR) 40 mg tablet Take 1 tablet by mouth daily at bedtime. For cholesterol. FLUoxetine (PROZAC) 40 mg capsule Take 1 capsule by mouth once daily. levothyroxine (SYNTHROID) 50 mcg tablet Take 1 tablet by mouth daily before breakfast. Sat-Sat and none on Saturday, Saturday donepezil (ARICEPT) 10 mg tablet Take 1 tablet by mouth daily at bedtime. gabapentin (NEURONTIN) 300 mg capsule Take 1 capsule by mouth daily at bedtime for 90 days. cyanocobalamin (VITAMIN B-12) 500 mcg tablet Take 1 tablet by mouth once daily. mirabegron (MYRBETRIQ) 50 mg Tb24 Take 1 tablet by mouth once daily. omeprazole (PRILOSEC) 40 mg capsule Take 1 capsule by mouth once daily. cyclobenzaprine (FLEXERIL) 10 mg tablet Take 1 tablet by mouth every 8 hours as needed for muscle spasm (or pain). wheat dextrin (BENEFIBER HEALTHY SHAPE) 5 gram/7.4 gram powd Take 2 teaspoonsful by mouth once daily. amino acids (AMINO ACID ORAL) Take by mouth once daily. Peptide powder VITAMIN E ACETATE ORAL Take by mouth. ascorbic acid (VITAMIN C ORAL) Take by mouth once daily. Melatonin 5 mg cap Take 1 capsule by mouth daily at bedtime. aspirin, enteric coated (ADULT LOW DOSE ASPIRIN) 81 mg EC tablet Take 1 tablet by mouth once daily. Current Facility-Administered Medications on File Prior to Visit Medication menthol-cetylpyridinium 1 Lozenge (CEPACOL LOZENGES) Social History Social History Tobacco Use Smoking status: Some Days Types: Cigarettes Smokeless tobacco: Never Tobacco comments: Roughly one pack per week Vaping Use Vaping Use: Never used Substance Use Topics Alcohol use: Not Currently Drug use: Never Review of Symptoms REVIEW OF SYSTEMS SEE HPI EXAM: BP 114/60 Pulse 64 Wt 42.6 kg (94 lb) SpO2 99% BMI 18.36 kg/m General Appearance: Well appearing, alert, in no acute distress, well-hydrated, well nourished.. Skin: Skin color, texture, turgor normal, no suspicious rashes or lesions. Lungs: Lungs clear to auscultation. No wheezing, rhonchi, rales.. Heart: RRR without murmur, gallop, or rubs. No ectopy. Abdomen: Normal abdominal exam, Abdomen soft, non-tender. Bowel sounds normal. No masses, organomegaly Extremities: No deformities, edema, skin discoloration, clubbing or cyanosis. Good capillary refill. . Peripheral Pulses: Normal. Neurologic: Gait normal. Reflexes normal and symmetric. Sensation grossly intact.. Health Maintenance List ADVANCE DIRECTIVE DISCUSSION due on 10/07/2022 HBA1C due on 03/14/2023 SHINGRIX VACCINE(2 of 2) due on 09/20/2023 DILATED RETINAL EXAM due on 08/08/2023 URINE ALBUMIN:CREATININE RATIO due on 09/13/2023 LDL CHOLESTEROL due on 09/13/2023 DIABETIC FOOT EXAM due on 09/20/2023 SERUM CREATININE due on 03/03/2024 ANNUAL PCP TEAM CHRONIC DISEASE VISIT due on 03/06/2024 BP CONTROLLED (<130/80) due on 03/19/2024 DTAP,TDAP,TD(3 - Td or Tdap) due on 05/29/2028 BONE DENSITY Completed INFLUENZA Completed COVID-19 VACCINE Completed PNEUMOCOCCAL: 65+ Completed HEPATITIS C SCREENING Discontinued ASSESSMENT/PLAN: 1. Advance directive discussed with patient - ICD9: V65.49, ICD10: Z71.89 (primary diagnosis) - ADVANCE CARE PLAN DISCUSSION 2. Hypokalemia - ICD9: 276.8, ICD10: E87.6 - BASIC METABOLIC PNL 3. Essential hypertension - ICD9: 401.9, ICD10: I10 - Controlled - Continue current medications - Recommend home blood pressure monitoring, to bring results to next visit - Encouraged sodium restriction, DASH or Mediterranean diet - Recommend regular aerobic exercise - Reviewed risks of hypertension and principles of treatment 4. Type 2 diabetes mellitus with stage 3a chronic kidney disease, without long-term current use of insulin (HCC) - ICD9: 250.40, 585.3, ICD10: E11.22, N18.31 - Control undetermined, due for labs - Counseled on healthy diet and regular exercise - eGFR: Stable 5. Stage 3a chronic kidney disease (HCC) - ICD9: 585.3, ICD10: N18.31 - eGFR: Stable 6. Mixed hyperlipidemia - ICD9: 272.2, ICD10: E78.2 - Controlled - Continue current medications - Counseled on healthy diet and regular exercise 7. Hypothyroidism (acquired) - ICD9: 244.9, ICD10: E03.9 - Instructed patient on importance of taking on an empty stomach either first thing in the morning or at bedtime. - continue current dose of Synthroid 0.050 mg Stable 8. Ex-smoker - ICD9: V15.82, ICD10: Z87.891 9. Osteoporosis without current pathological fracture, unspecified osteoporosis type - ICD9: 733.00, ICD10: M81.0 - Reviewed the need for Calcium and Vitamin D supplements and weight bearing exercise as tolerated 10. Failure to thrive in adult - ICD9: 783.7, ICD10: R62.7 11. Dementia without behavioral disturbance (HCC) - ICD9: 294.20, ICD10: F03.90 -Continue donepezil Mayank Quintanilla APRN.ANTONY documented in this encounter [facility] 03-19-2023 Miscellaneous Notes SITUATION: Prison routine visit completed today. only patient also present during today's visit. patient reports the following: Allergies--reviewed Medications--reviewed current medications Falls--None DME-NONE BACKGROUND: Reason for Home Care: chronic disease management ASSESSMENT: SN greeted at door by pts son , pt found in bed resting and watching tv. pt denies any pain at this time. pt denies any falls since last visit. sn educated pt on fall prevention and safety. pt states appetite is still poor. pt states she had chicken and potatoes for the first time in a long time and states she had abdominal pain overnight from it and then diarrhea this morning.pt states she wants to eat but states food doesn't taste the same. pt denies drinking the protein shakes as she says the dairy bothers her stomach. sn suggested trying the non dairy protein shakes that are clear and dairy free. pt states she may try them. pt denies any urine issues. pt states she has occasional diarrhea. pt states she is compliant with her walker, she mostly uses it while in bathroom. pt has upcoming appt with her pcp. pt has pt coming out this week as well. pt denies any issues getting to her appts. pt denies any changes with her medications. pt states she is compliant with her meds. Patient appears in no acute distress. Patient/CG concerns verbalized today: none Vitals (see flow sheet for details): stable SN findings today: pt resting in bed, pt pleasant and cooperative. See intervention summary for education details. Patient demonstrated a need for further skilled SN services for chronic disease management & education and safety. Current Discharge plan: family support RECOMMENDATION: Next visit to focus on (be specific): chronic disease managment documented in this encounter [facility] 03-13-2023 Miscellaneous Notes SITUATION: Prison routine visit completed today. son also present during today's visit. patient reports the following: Allergies--reviewed Medications--reviewed current medications Falls--None DME-Reviewed and added to chart BACKGROUND: Reason for Home Care: Hypokalemia ASSESSMENT: SN greeted at door by caregiver. Upon entrance patient found in chair Patient appears in no acute distress. Patient/CG concerns verbalized today: none Vitals (see flow sheet for details): stable SN findings today: Patient pleasant and cooperative with SN assessment. Patient ambulates with slow steady gait and walker. Patient reports a poor appetite but adequate hydration. SN encouraged small frequent meals, patient verbalizes understanding. Sn provided patient education on importance of adequate nutrition and purpose of electrolytes in body. Patient states she is drinking 2 protein shakes a day with one in ice cream. Patient states she has some nausea at times but no active emesis. Patient reports chronic pain managed with medication. Sn educated patient on incontinence care, patient verbalzies understanding. No other questions or concerns at this time. See intervention summary for education details. Patient demonstrated a need for further skilled SN services for chronic disease management & education, medication education and safety. Current Discharge plan: self-care and family support RECOMMENDATION: Next visit to focus on (be specific): disease and medication management, nutrition, nausea documented in this encounter [facility] 03-13-2023 Miscellaneous Notes Noted. Hi Dr. Saravia, visit unmade this date as pt not home at previously arranged visit time. Will attempt to see her again later this week. Thank you, Annie PINTO RN documented in this encounter [facility] 03-13-2023 Miscellaneous Notes SITUATION: son present during today's visit. patient reports the following since the last homecare visit: medications/allergies--no changes, no fall. patient reports feeling ok. BACKGROUND: Diagnoses (reason for Home Care): Admitted frm observation status to [facility] on 03/01 - 03/03/2023 following fall at home/hypokalemia/ failure to thrive in adult Past Medical History: hypothyroidism, aneurysm, constipation, LBP with sciatic, ex-smoker, HTN, stenosis, colitis, CKDIII, dementia, DM2 Weight Bearing or Surgical Precautions: falls ASSESSMENT: Focus of visit: Instructed in standing LE ex at countertop with UE support Plan of care, goals, and visit frequency reviewed and agreed upon with patient and/or caregiver. Current Discharge Plan:family support. Anticipate discharge by 04/06/23- patient declines more than one PT visit weekly RECOMMENDATION: Next visit to focus on HEP review, gait training, stair negotiation See intervention summary for intervention/education details. documented in this encounter [facility] 03-13-2023 Miscellaneous Notes SITUATION: OT evaluation son present during today's visit. patient reports the following since the last homecare visit: medications/allergies--no changes, no fall. BACKGROUND: Diagnoses (reason for Home Care): Admitted frm observation status to [facility] on 03/01 - 03/03/2023 following fall at home/hypokalemia/ failure to thrive in adult Past Medical History: hypothyroidism, aneurysm, constipation, LBP with sciatic, ex-smoker, HTN, stenosis, colitis, CKDIII, dementia, DM2 Weight Bearing or Surgical Precautions: falls ASSESSMENT: Patient evaluated by [facility] occupational therapy. Reviewed and explained homecare services. Plan of care, goals and visit frequency developed, reviewed, and agreed upon with patient and/or caregiver. . Current Discharge Plan:remain in community with/without caregiver support. Anticipate discharge by 03/13/23 on eval pt declining need for OT only wants PT for balance RECOMMENDATION: See intervention summary for intervention/education details. documented in this encounter [facility] 03-08-2023 Miscellaneous Notes SITUATION: only patient present during today's visit (son at home but doesn't participate in session). patient reports the following since the last homecare visit: medications/allergies--reports picked up new prescription for oral potassium today- has not been given anything for nausea at this time , no fall. patient reports ongoing nausea, has been able to keep fluids down. SNF had been recommended in acute care due to lack of CG support and baseline dementia, though patient declined and opted for [facility] services. LIves with son, who appears engaged and well supportive of patient. Patient reports she has another son who she has had legal issues with in the past and is now 'out of the picture' BACKGROUND: Diagnoses (reason for Home Care): Admitted frm observation status to [facility] on 03/01 - 03/03/2023 following fall at home/hypokalemia/ failure to thrive in adult Past Medical History: hypothyroidism, aneurysm, constipation, LBP with sciatic, ex-smoker, HTN, stenosis, colitis, CKDIII, dementia, DM2 Weight Bearing or Surgical Precautions: falls ASSESSMENT: Patient evaluated by [facility] physical therapy. Reviewed and explained homecare services. Plan of care, goals, and visit frequency developed, reviewed, and agreed upon with patient and/or caregiver. My balance is my biggest problem Endorses vertigo effecting mobility on almost daily basis. Balance greatly impaired, gait highly unstable with significant use of environmental supports without AD. Movement impulsive, decreased insight into deficits. TUG testing reveals high fall risk. Patient does have a cane and rollator, though has not been using, sits in the car for occasional use in community. Son retrieves rollator, patient reports agreeable to use. Patient Goal: be strong and able to live on her own without CG assist Patient will benefit from continued physical therapy to address the following deficits: strength, balance, gait, endurance, transfers, stair negotiation and bed mobility. Current Discharge Plan:family support. Anticipate discharge by 04/06/23- patient declines more than one PT visit weekly RECOMMENDATION: Next visit to focus on Standing HEP, gait training with AD, home safety and fall prevention training See intervention summary for intervention/education details. documented in this encounter [facility] 03-07-2023 Miscellaneous Notes Patient is having difficulty with nausea which is preventing her from taking medications and eating. Is there any way we can call in her something for nausea like Zofran? She said she is going to pharmacy tomorrow to greens picker new potassium. documented in this encounter [facility] 03-07-2023 Miscellaneous Notes SITUATION: Prison SOC visit completed today. only patient present during today's visit. patient reports the following: Allergies--reviewed Medications--full medication reconciliation completed and reviewed current medications Falls--None DME-Reviewed and added to chart BACKGROUND: Discharged/Referral from acute [facility] on 03/03/23 following treatment for Hypokalemia Pertinent referral information or other diagnoses that may affect plan of care: Osteoporosis Essential Hypertension Mixed Hyperlipidemia Hypothyroidism (Acquired) Ex-Smoker Pain in Joint, Multiple Sites Decreased Sensation of Lower Extremity Spinal Stenosis, Lumbar Region, With Neurogenic Claudication Urgency of Urination Chronic Bilateral Low Back Pain With Sciatica Medicare Annual Wellness Visit, Subsequent Recurrent Major Dep ressive Disorder, in Remission ([facility]) Medication Management Bilateral Carotid Artery Stenosis Hematuria Moderate Aortic Insufficiency Agitation Lymphocytic Colitis Sinus Bradycardia Essential Tremor Living Will On File Advance Directive Discussed With Patient Stage 3a Chronic Kidney Disease ([facility]) Type 2 Diabetes Mellitus With Stage 3a Chronic Kidney Disease ([facility]) Diabetic Eye Exam ([facility]) [facility] Hypokalemia Failure to Thrive in Adult ASSESSMENT: SN greeted at door by patient no DME and demonstrates unstable gait. Patient appears in no acute distress. Patient lives at home alone but patient's son is staying with patient in home until patient becomes stronger.. Home environment: clean. SOC booklet reviewed & completed with patient and consent obtained for Home Care services. Patient/CG concerns verbalized today: Patient reports she has been experiencing nausea since discharge home. This SN sent telephone message to signing provider, PCP, to request possible nausea medication so patient can eat and take medications as ordered. Vitals (see flow sheet for details): stable SN findings today: Patient is alert and oriented and greeted SN at door upon arrival. Patient was not using assistive device but has unastable gait and is using furniture walking . Patient requests SN perform admission assessment in bedroom so she can lay down. Patient states she has been very nauseated since discharge home and has not taken some of her medcaitons due to nausea and is having difficulty eating. Patient reports she has been able to keep down liquids including protein supplement. SN sent message to PCP requesting medication order for nausea medication if appropriate. All vital signs are stable. Patient has all medications in the home and verbalizes understanding of all medication actions, purpose, and adverse effects. Patient denies any recents falls. Reports chronic pain to back. No skin issues at this time. Patient reports occassional incontinence of urine and wears pad daily. Patient requests SN visits be limited to once weekly and to not be on same day as therapy. This is noted in chart. Patient agreeable to PT/OT referrals , denies SQUARING SHEAR OPERATOR referrals . Patient reports she is aware of DMII diagnosis on profile but denies that she has ever been treated for diabetes and PCP monitors with A1C. Patient smokes cigarettes, reports less than 3 daily. See intervention summary for education details and skills performed. Plan of care and visit frequency established with patient and plan of care agreed upon. Patient demonstrated a need for further skilled SN services for chronic disease management & education, medication education, safety and infection control/prevention. RECOMMENDATION: Visit Frequency: 1w8 Need for additional services: Patient agreeable to PT and OT referrals. Patient declined SQUARING SHEAR OPERATOR referrals. Additional concerns to be followed up on:nausea/medication Next visit to focus on (be specific): disease and medication management, nutrition, nausea. documented in this encounter [facility] 03-06-2023 History of Present illness Narrative Transitional Care Management TCM Eligibility Documentation The following information was gathered during the initial Patient Outreach Encounter. No flowsheet data found. Provider Documentation Edison Albarran is a 77 year old female here today for a follow up from recent hospitalization. I have reviewed the patient's hospital course including discharge summary, discharge medications , and follow up needs with the patient and any family members present at today's visit. ER course Edison Albarran is a 77 year old female presented with complaints of feeling unsteady, with her neighbor. She lives at home with her son. States that over the last few days she has felt unsteady on her feet with more nausea. She states that she is prescribed potassium supplementation as a liquid medicine but states that she is not able to keep it down. She states that she is concerned her potassium is low as she has felt unsteady and off previously with low potassium levels.The neighbor states that the patient's son had informed her that patient had a fall a few days ago but details of this are not known.Patient has no headache, lightheadedness pain or numbness or weakness to extremities. Is on aspirin, no other anticoagulation. Potassium was replaced during hospitalization and is normalized at time of discharge. PT/OT evaluated patient and recommended SNF at discharge. This was discussed with both patient and son, due to patients baseline diagnosis of dementia. SNF was declined and home health care was arranged. Extensive conversation with son about PT recommendations and safety concerns for patient going home, patient and son admit about discharge home requesting [facility] HPI Patient would like to see if she can get the mikro-K potassium which maybe smaller and easier to swallow. Patient still feeling weak and gets dizzy at times still. Though she has a wheeled walker she does not use it regularly. No shortness of breath, wheezing.leg swelling chest pain or palpitations Patient has [facility] ordered and will be seeing her for Skilled care, PHYSICAL THERAPY/OT, home health aid PHYSICAL EXAMINATION BP 126/78 Pulse 74 Resp 14 Wt 45.4 kg (100 lb) BMI 18.89 kg/m Last 6 Encounter Wt Readings: Date: Wt: 03/06/2023 45.4 kg (100 lb) 03/01/2023 46.3 kg (102 lb) 01/24/2023 48.5 kg (107 lb) 12/27/2022 51.3 kg (113 lb) 12/04/2022 51.3 kg (113 lb) 11/30/2022 51.3 kg (113 lb) GENERAL: well appearing, alert, in no acute distress HEART: Regular rate and rhythm. No murmur, rubs or gallops. LUNGS: clear to auscultation, no wheezing, rhonchi, or crackles ABDOMEN: soft, non-tender, non-distended, no masses or organomegaly EXTREMITIES: no lower extremity edema. No skin discoloration. A/P ASSESSMENT/PLAN: 1. Hypokalemia - ICD9: 276.8, ICD10: E87.6 (primary diagnosis) - will change potassium to Micro-K due to difficulty to swallow the larger potassium replacements 2. Failure to thrive in adult - ICD9: 783.7, ICD10: R62.7 - patient to work on increased protein. 3. Essential hypertension - ICD9: 401.9, ICD10: I10 - good control - Continue current medication(s) - Recommended regular aerobic exercise. - Recommend home blood pressure monitoring, to bring results in on next visit - Goal of BP <130/80 4. Hypothyroidism (acquired) - ICD9: 244.9, ICD10: E03.9 - Instructed patient on importance of taking on an empty stomach either first thing in the morning or at bedtime. - continue current dose of Synthroid 5. Stage 3a chronic kidney disease (HCC) - ICD9: 585.3, ICD10: N18.31 - cont current Tx and monitor. 6. Type 2 diabetes mellitus with stage 3a chronic kidney disease, without long-term current use of insulin (HCC) - ICD9: 250.40, 585.3, ICD10: E11.22, N18.31 - continue current Tx. 7. Unsteady gait - ICD9: 781.2, ICD10: R26.81 - encouraged to use her wheeled walker regularly. Requested Prescriptions Signed Prescriptions Disp Refills potassium chloride SR (MICRO-K) 10 mEq CR capsule 60 capsule 5 Sig: Take 2 capsules by mouth twice daily. Keep routine f/u 03/21/2023 Kurt Saravia MD documented in this encounter [facility] 03-04-2023 Miscellaneous Notes Welcome Home Call: a. Date and Time: 1:32 PM 03/04/2023 b. Contact name/relationship: patient c. Have you been active with any Home Care company in the last 60 days(such as help with bathing, filling medications, checking your blood pressure) ? No. d. [facility] will be providing your care, are you agreeable to starting these services? yes (yes or no) e. Do you have any upcoming appointments in the next few days, or restrictions to your schedule? no f. Caregiver: Casey (Son) diana. Confirmed Visited Location and preferred #: yes Please keep our your medications both over the counter and prescribed out for the home care to review, your hospital discharge instructions and write down any questions you might have. In order to maintain a safe environment for our caregivers, [facility] requires any animals or weapons present in the home be located in a secured location. Our clinicians will call you the night before or the morning of the appointment. Their # may come up restricted but they'll leave a VM for you. In case you have any questions or concerns in the meantime, our # is [phone], option 5 Thank you for your time and have a great day. Darby Low LPN documented in this encounter [facility] 03-04-2023 Miscellaneous Notes yes Kurt Saravia MD Please advise if you are agreeable to signing and following for HHC services? Our Clinicians will be sending the Plan of Care to you for review and approval. They will reach out for any appropriate orders required to provide home care services for the patient. We are not able to initiate HHC services without a following provider. Home care clinicians may also obtain orders from [facility] Providers Thank you and we would be happy to answer any questions. Darby Low LPN 03/04/2023 12:52 PM documented in this encounter [facility] 03-02-2023 Note HNO ID: [id number] Author: Angelina Goodman APRN.CLIENT SERVICES REPRESENTATIVE Service: Hospital Medicine Author Type: Nurse Practitioner Type: Progress Notes Filed: 03/02/2023 11:17 AM Note Text: DEPARTMENT OF HOSPITAL MEDICINE PROGRESS NOTE SERVICE DATE: 03/02/2023 SERVICE TIME: 10:26 AM Hospital Medicine/Primary Attending: No att. providers found NIGHT AND WEEKEND COVERAGE: [facility] medicine coverage Subjective INTERVAL HPI: - K noted, replacement added - son updated - diet updated to mechanical soft - denies any lightheaded/dizziness, orthostatic vitals ordered - awaiting PT eval, OT ordered Current Facility-Administered Medications Medication Dose Route Frequency NaCl 0.9% iv infusion 75 mL/hr INTRAVENOUS CONTINUOUS NaCl 0.9% iv flush bag 20 mL INTRAVENOUS PRN potassium chloride ER 20 mEq tab(s) (KLOR-CON) 20 mEq ORAL ONCE atorvastatin 40 mg tab(s) (LIPITOR) 40 mg ORAL AT BEDTIME gabapentin 300 mg cap(s) (NEURONTIN) 300 mg ORAL AT BEDTIME donepezil 10 mg tab(s) (ARICEPT) 10 mg ORAL AT BEDTIME aspirin, enteric coated 81 mg tab(s) 81 mg ORAL DAILY levothyroxine 50 mcg tab(s) (SYNTHROID) 50 mcg ORAL DAILY (6 AM) cyanocobalamin 500 mcg tab(s) (VITAMIN B-12) 500 mcg ORAL DAILY trospium 20 mg tab(s) (SANCTURA) 20 mg ORAL BID AC pantoprazole DR 40 mg tab(s) (PROTONIX) 40 mg ORAL DAILY (6 AM) potassium chloride ER 40 mEq tab(s) (KLOR-CON) 40 mEq ORAL BID Facility-Administered Medications Ordered in Other Encounters Medication Dose Route Frequency menthol-cetylpyridinium 1 Lozenge (CEPACOL LOZENGES) 1 Lozenge ORAL PRN Objective PHYSICAL EXAM: BP 120/64 Pulse 61 Temp (Src) 98.3 (Oral) Resp 20 Ht 5' 1 (1.55m) Wt 102 lb (46.3kg) SpO2 100% BMI 19.28 kg/(m2). O2 Therapy: Room Air Physical Exam Performed GENERAL: alert, no distress, cooperative, thin, AANDO x2 SKIN: Skin color, texture, turgor normal. No rashes or lesions. NECK: no jugulovenous distention, supple BACK: Back symmetric, Normal curvature, ROM normal, LUNGS: Lungs clear to auscultation. Good diaphragmatic excursion. CARDIAC: RRR; no rubs, murmurs, or gallops ABDOMEN: Abdomen soft, non-tender. BS normal. EXTREMITIES: Extremities normal. No deformities, edema, clubbing or skin discoloration., No ulcers NEURO: Sensation grossly intact. Lines, Drains, and Airways Line Duration Peripheral 03/01/23 2223 Left Antecubital 20 Gauge <1 day Reviewed lines and needs to be continued: REASONS: Telemetry and Electrolyte replacement DATA: Diagnostic tests reviewed for today's visit: Most recent labs Most recent imaging Most recent EKG Assessment/Plan Problem List Hypokalemia POA: Yes Essential hypertension POA: Yes Mixed hyperlipidemia POA: Yes Hypothyroidism (acquired) POA: Yes Stage 3a chronic kidney disease (HCC) POA: Yes Type 2 diabetes mellitus with stage 3a chronic kidney disease (HCC) POA: Yes Dementia without behavioral disturbance (HCC) POA: Yes Failure to thrive in adult POA: Status not on file HOSPITAL COURSE: Edison Albarran is a 77 year old female presented with past medical history of HLD, HTN, DM-2, CKD-3, with cognitive impairment, chronic abdominal pain with GERD symptoms presents with complaints of feeling unsteady, with her neighbor. She lives at home with her son. States that over the last few days she has felt unsteady on her feet with more nausea. She states that she is prescribed potassium supplementation as a liquid medicine but states that she is not able to keep it down. She states that she is concerned her potassium is low as she has felt unsteady and off previously with low potassium levels.The neighbor states that the patient's son had informed her that patient had a fall a few days ago but details of this are not known.Patient has no headache, lightheadedness pain or numbness or weakness to extremities. Is on aspirin, no other anticoagulation. Principal Problem: Hypokalemia - 2.7 on admission, replaced - 3.1 following admission replacement - 20 mEq k-dur BID, patient states she cannot tolerate larger doses - endorses decrease PO intake d/t poor dentition - tele - BMP Active Problems: Hypomagnesia-resolved - 1.5 on admission, replaced - now normalized - tele Essential hypertension - stable - no antihypertensive medications NETWORK DESIGN ARCHITECT - presents w/unsteady gait w/fall - denies any lightheadedness/dizziness - monitor BP - orthostatic vitals Mixed hyperlipidemia - c/w NETWORK DESIGN ARCHITECT med: lipitor Hypothyroidism (acquired) - c/w NETWORK DESIGN ARCHITECT med: synthroid Stage 3a chronic kidney disease (HCC) - stable - BMP Type 2 diabetes mellitus with stage 3a chronic kidney disease (HCC) - BMP glucose WNL - endorses decrease PO intake d/t poor dentition - no antidiabetic medications listed NETWORK DESIGN ARCHITECT Dementia without behavioral disturbance (HCC) - AANDO x2, confused to time - NETWORK DESIGN ARCHITECT lives w/son - c/w NETWORK DESIGN ARCHITECT med: aricept, Vit B-12 - fall precautions Failure to (more content not included)... [facility] 02-05-2023 Miscellaneous Notes The following approved medication requests have been transmitted electronically. Requested Prescriptions Signed Prescriptions Disp Refills levothyroxine (SYNTHROID) 50 mcg tablet 90 tablet 1 Sig: Take 1 tablet by mouth daily before breakfast. Mon-Sat and none on Saturday, Saturday Authorizing Provider: MALLY CALZADA PA-C [facility] calling to request a new script for pt's levothyroxine be sent to them. They package pt's medications and need new script reflecting recent change in dose from 01/28. Thank you. Per 01/28 note: (COPIED:) Kurt Saravia MD Note Let patient know thyroid lab shows she is still getting too much levothyroxine. I want to decrease her levothyroxine to taking the 50 MCG tablet once a day Sat through Saturday and none on Sat or Sun. Lab order placed to get repeat thyroid lab in two months. Rashmi Lowery RN documented in this encounter [facility] 02-04-2023 Miscellaneous Notes Patient notified and voiced understanding. rBenda Sanabria MA Left additional message for patient to contact office. Brenda Sanabria MA Left message for pt to contact office. Marty Barkley LPN Let patient know thyroid lab shows she is still getting too much levothyroxine. I want to decrease her levothyroxine to taking the 50 MCG tablet once a day Sat through Saturday and none on Sat or Sun. Lab order placed to get repeat thyroid lab in two months. documented in this encounter [facility] 01-25-2023 Miscellaneous Notes Attempted to contact pt. Number listed is not a working phone number. Called pt's son, Casey and advised him of results. He will call back with updated contact info for pt. Marty Barkley LPN ----- Message from Mally Calzada PA-C sent at 01/25/2023 1:37 PM EDT ----- Lead level is normal. documented in this encounter [facility] 01-24-2023 History of Present illness Narrative Chief Complaint Patient presents with: Recheck HPI Edison Albarran is a 77 year old female who presents here today for recheck. Patient is concerned with symptoms of nausea and increased reflux. She is concerned that it may be one of her new medication. However this has been a complaint of hers for some time now. So may not be related to anything new. She does feel like her memory has improved. Past medical history, appointments, medications, allergies reviewed. Previous Medical History PAST MEDICAL HISTORY Diagnosis Date Advance directive discussed with patient 03/21/202203/2022 Agitation 02/02/2020 Aneurysm of right subclavian artery (HCC) Bilateral carotid artery disease (HCC) 12/20/2015 US 12/2015: 20-40% on Rt and 40-60% on left. US 01/2017 unchanged. Chronic bilateral low back pain with sciatica 12/26/2016 Constipation 07/09/2018 after starting lipitor Decreased sensation of lower extremity 01/04/2016 Essential hypertension 2015 Essential tremor 09/18/2021 Ex-smoker 2015 1/2-1 PPD since early , quit January 2018 Hematuria 12/14/2015 Urology w/u neg. Hypothyroidism (acquired) 2015 Living will on file 03/21/2022 DPA; Casey (son) Lymphocytic colitis 05/16/2020 Possibly Zoloft related. Mediastinal lymphadenopathy 08/04/2018 Prominent Mediastinal lymphadenopathy noted on CT 08/01/18. CT 01/05/2019 no mediastinal lymphadenopathy Mixed hyperlipidemia 2015 Moderate aortic insufficiency 01/19/[address] Cordoba Osteoporosis 05/26/2015 Pain in both hands 12/26/2016 Pain in joint, multiple sites 12/07/2015 On neurontin Recurrent major depressive disorder, in remission (HCC) 07/01/2018 Spinal stenosis, lumbar region, with neurogenic claudication 01/23/2016 Stage 3a chronic kidney disease (HCC) 09/20/2022 Type 2 diabetes mellitus with stage 3a chronic kidney disease (HCC) 09/20/2022 Type 2 diabetes mellitus without complication, without long-term current use of insulin (HCC) 12/07/2015 Urgency of urination 06/13/2016 Previous Surgical History PAST SURGICAL HISTORY Procedure Laterality Date 2D ECHO (EXEP) 09/2020 EF=64%, Mild Noe dysf and La enlargment, 2+ AR CARPAL TUNNEL RIGHT WRIST COLONOSCOPY 2010 repeat 10 yrs COLONOSCOPY FLX DX W/COLLJ SPEC WHEN PFRMD 04/21/2020 Colonoscopy CORRECTION OF BUNION Left ESOPHAGOGASTRODUODENOSCOPY TRANSORAL DIAGNOSTIC 04/21/2020 EGD FECAL OCCULT BLOOD TEST 01/01/2018 negative HYSTERECTOMY HX 1970 one ovary removed LEXISCAN STRESS TEST 11/21/2020 negative PAST SURGICAL HISTORY OF 1971 appendectomy PAST SURGICAL HISTORY OF 1987 breast lump, benign STRESS TEST 07/09/2016 WNL TUMOR REMOVAL (SPECIFY LOCATION) HX 2001 stomach Family History FAMILY HISTORY Problem Relation Age of Onset Breast Cancer Mother over 50 Hypertension Mother Lipids Mother Osteoporosis Mother Thyroid Mother Cancer Father stomach Cancer Brother lung Alzheimer's Disease Brother dementia Diabetes Brother Patient Allergies ALLERGIES Allergen Reactions Bactrim [Sulfametho* Other: See Comments Unknown. Cephalexin Other: See Comments Unknown. Citalopram Swelling Throat swelled Cymbalta [Duloxetin* Other: See Comments Made her feel groggy. Current Medications Current Outpatient Medications on File Prior to Visit Medication Sig gabapentin (NEURONTIN) 300 mg capsule Take 1 capsule by mouth daily at bedtime for 90 days. levothyroxine (SYNTHROID) 50 mcg tablet Take 1 tablet by mouth daily before breakfast. Mon-Sat and none on Saturday cyanocobalamin (VITAMIN B-12) 500 mcg tablet Take 1 tablet by mouth once daily. donepezil (ARICEPT) 5 mg tablet Take 1 tablet by mouth daily at bedtime. mirabegron (MYRBETRIQ) 50 mg Tb24 Take 1 tablet by mouth once daily. omeprazole (PRILOSEC) 40 mg capsule Take 1 capsule by mouth once daily. atorvastatin (LIPITOR) 40 mg tablet Take 1 tablet by mouth daily at bedtime. For cholesterol. cyclobenzaprine (FLEXERIL) 10 mg tablet Take 1 tablet by mouth every 8 hours as needed for muscle spasm (or pain). FLUoxetine (PROZAC) 40 mg capsule Take 1 capsule by mouth once daily. wheat dextrin (BENEFIBER HEALTHY SHAPE) 5 gram/7.4 gram powd Take 2 teaspoonsful by mouth once daily. potassium chloride 20 mEq/15 mL solution Take 15 mL by mouth twice daily. VITAMIN E ACETATE ORAL Take by mouth. ascorbic acid (VITAMIN C ORAL) Take by mouth once daily. Melatonin 5 mg cap Take 1 capsule by mouth daily at bedtime. diphenhydrAMINE 12.5 mg/5 mL lidocaine visc 2% MAALOX 200-200-20 mg/5 mL oral liquid 1:1:1 (CPD) Take 10 mL by mouth every 6 hours as needed for Sore Throat. Swish and swallow (Patient not taking: Reported on 12/27/2022) amino acids (AMINO ACID ORAL) Take by mouth once daily. Peptide powder (Patient not taking: Reported on 11/21/2022) aspirin, enteric coated (ADULT LOW DOSE ASPIRIN) 81 mg EC tablet Take 1 tablet by mouth once daily. (Patient not taking: Reported on 11/21/2022) Current Facility-Administered Medications on File Prior to Visit Medication menthol-cetylpyridinium 1 Lozenge (CEPACOL LOZENGES) Social History Social History Tobacco Use Smoking status: Some Days Types: Cigarettes Smokeless tobacco: Never Tobacco comments: Roughly one pack per week Vaping Use Vaping Use: Never used Substance Use Topics Alcohol use: Not Currently Drug use: Never Review of Symptoms REVIEW OF SYSTEMS MINI-MENTAL STATE EXAMINATION (MMSE) Make the patient comfortable and establish rapport. Ask questions in the order listed. Total possible score is 30. ORIENTATION 1. What is the (year) (season) (date) (day) (month)? Max score=5 Patient's score=4 2. Where are we? (state) (county) (town or city) (hospital) (floor)? Max score=5 Patient's score=4 REGISTRATION Ask the patient if you may test his/her memory. Then say the names of 3 unrelated objects, clearly and slowly, about one second for each (eg, apple, table, marcy). After you have said all 3, ask him/her to repeat them. This first repetition determines the score(0-3), but keep saying them until he/she can repeat all 3, up to 6 trials. Max score=3 Patient's score=3 ATTENTION AND CALCULATION Ask the patient to begin with 100 and count backwards by 7. Stop after 5 subtractions (93, 86, 79, 72, 65). Score the total number of correct answers. If the patient cannot or will not perform the serial 7s task, ask him/her to spell the word WORLD backwards. The score is the number of letters in the correct order (eg, DLROW=5; DLRW=4; DLORW, DLW=3; OW=2; DRLWO=1). Max score=5 Patient's score=0 RECALL Ask the patient to recall the 3 items repeated above (eg, apple, table, marcy). Max score=3 Patient's score=2 LANGUAGE Naming: Show the patient a wristwatch and ask him/her what it is. Repeat for pencil. Max score=2 Patient's score=2 Repetition: Ask the patient to repeat the phrase No ifs, ands, or buts: after you. Max score=1 Patient's score=1 3-Stage Command: Give the patient a piece of blank paper and ask him/her to take a piece of paper in your right hand, fold it in half, put it on the floor. Score 1 point for each part correctly executed. Max score=3 Patient's score=3 Reading: On a blank piece of paper, print the sentence CLOSE YOUR EYES in letters large enough for the patient to see clearly. Ask him/her to read it and do what it says. Score 1 point only if he/she actually closes his/her eyes. Max score=1 Patient's score=1 Writing: Give the patient a blank piece of paper and ask him/her to write a sentence. Do not dictate a sentence; it is to be written spontaneously. It must contain a subject and verb and be sensible. Correct grammar and punctuation are not necessary. Max score=1 Patient's score=1 Copying: Ask the patient to copy the figure of intersecting pentagons exactly as it is. All 10 angles must be present and 2 must intersect to form a 4-sided figure to score 1 point. Tremor and rotation are ignored. Max score=1 Patient's score=1 MAXIMUM TOTAL SCORE = 30 TOTAL SCORE = 22/30 Suggested guideline for determining the severity of cognitive impairment: Mild: MMSE>21 Moderate: MMSE 10-20 Severe: MMSE<9 Expected decline in MMSE scores in untreated mild to moderate Alzheimer's patient is 2 to 4 points per year. *Adapted from Folstein et al.1 and Jacinda and Matthew2. (c) 1974, 1997 [employer] Used with permission. References: 1. Folstein MF, Folstein SE, Yared NC. Mini-Mental State: a practical method for grading the cognitive state of patients for the clinician. J Psychiatr Res. 1975; 12:189-198. 2. JR Jacinda, Matthew MF, Mini-Mental State Examination (MMSE). Psychopharm Bull. 1988;24:689-692. 3. Ricky JT, Rehana FJ, Manjinder RD, David A, Yash F. Neuropsychological function in Alzheimer's disease: pattern of impairment and rates of progression. Arch Neurol. 1988;45:263-268. 4. Cayetano JA, Karley B, Arslan S-P, Kenyon VIVAR. Predictors of cognitive and functional progression in patients with probable Alzheimer's disease. Neurology. 1992;42:5135-3848. EXAM: BP 122/62 (BP Site: Left Arm, BP Position: Sitting, BP Cuff Size: Regular Adult) Pulse 62 Temp 36.8 C (98.3 F) Resp 16 Wt 48.5 kg (107 lb) BMI 20.22 kg/m General Appearance: Well appearing, alert, in no acute distress, well-hydrated, well nourished.. Health Maintenance List ADVANCE DIRECTIVE DISCUSSION due on 10/07/2022 SHINGRIX VACCINE(2 of 2) due on 09/20/2023 HBA1C due on 03/14/2023 DILATED RETINAL EXAM due on 08/08/2023 URINE ALBUMIN:CREATININE RATIO due on 09/13/2023 LDL CHOLESTEROL due on 09/13/2023 DIABETIC FOOT EXAM due on 09/20/2023 SERUM CREATININE due on 11/30/2023 ANNUAL PCP TEAM CHRONIC DISEASE VISIT due on 12/28/2023 BP CONTROLLED (<130/80) due on 12/28/2023 DTAP,TDAP,TD(3 - Td or Tdap) due on 05/29/2028 BONE DENSITY Completed INFLUENZA Completed COVID-19 VACCINE Completed PNEUMOCOCCAL: 65+ Completed HEPATITIS C SCREENING Discontinued Data reviewed ASSESSMENT/PLAN: 1. Dementia without behavioral disturbance (HCC) - ICD9: 294.20, ICD10: F03.90 (primary diagnosis) Increase aricept to 10mg. Keep follow up as scheduled. - LEAD BLOOD 2. Cognitive impairment - ICD9: 294.9, ICD10: R41.89 As above - LEAD BLOOD 3. Abdominal pain, unspecified abdominal location - ICD9: 789.00, ICD10: R10.9 Advised patient and son to follow up with gastro on symptoms. - LEAD BLOOD Mally Calzada PA-C documented in this encounter [facility] 01-02-2023 Miscellaneous Notes Patient has been identified by name and date of : Pharmacy phones for refill(s): Requested Prescriptions Pending Prescriptions Disp Refills gabapentin (NEURONTIN) 300 mg capsule 30 capsule 1 Sig: Take 1 capsule by mouth daily at bedtime for 30 days. Date of last office visit in primary care: 12/27/2022, has appt 01/24/2023 Last 2 Encounter Wt Readings: Date: Wt: 12/27/2022 51.3 kg (113 lb) 12/04/2022 51.3 kg (113 lb) Previous labs/tests for medication: Not applicable Please advise. Thank you. Janett Izquierdo LPN documented in this encounter [facility] 12-28-2022 Miscellaneous Notes Pt's son advised of Mally's message and instructions. Son verbalizes understanding. Marty Barkley LPN Prozac is already on her med list and I confirmed with them yesterday that it was in the pill packs she was getting from [facility]. She just needs to actually take all the meds. Prozac is listed as fluoxetine on the pill packs. It was in her morning group. Mally Calzada PA-C Son reports he forgot to ask PA to put patient back on prozac. Reports patient did much better when she was on it. Please advise son. documented in this encounter [facility] 12-26-2022 Miscellaneous Notes Appears patient is scheduled for 04/2023. Brenda Sanabria MA 1st attempt unable to leave a message to return call to schedule consult to Brain Health. PSS: Please call pt to schedule appt with Neuro. Pt was notified of results & verbalized understanding. Ofe Montes LPN Let patient/family know that MRI of the brain does show some progression of brain volume loss. I would like her to see brain health specialist (neuro) for any further management/monitoring and testing. Consult has been placed. Mally Calzada PA-C documented in this encounter [facility] 12-19-2022 History of Present illness Narrative Radiology Service Progress Note PATIENT NAME: Edison Albarran DATE OF SERVICE: December 19, 2022 TIME: 3:27 PM PATIENT IDENTITY VERIFICATION COMPLETED USING TWO (2) IDENTIFIERS: Name and Date of confirmed by patient verbally. FALL SCREENING: Has the patient had 2 falls in the last year or 1 fall with injury or currently using an Ambulatory Assistive Device (Walker, Cane, Wheelchair, Crutches, etc.)? No PATIENT GENDER DATA: Female. status: : No status: NO. PATIENT RELEVANT IMPLANT DATA REVIEWED: Yes RADIOLOGY DEPARTMENT: MR; Exam(s) Completed: Head: Routine Brain PERIPHERAL IV DATA: Not applicable SIGNED BY: RT Jose(R) December 19, 2022 3:27 PM documented in this encounter [facility] 12-18-2022 Miscellaneous Notes I spoke with patient. She was notified of her results and findings. She states she is feeling better. Food is not sticking at her [employer] . She cannot tell me if she has any use of NSAIDs on a regular basis. She is very unsure of her medication she takes on a daily basis. She states they come in a pill pack and she takes them. I advised if she has any concerns she needs to contact the office and she was ok with this. Sandra Valdes RN Sandra, can you call Edison and go over her surgical pathology? Her stomach biopsies show very mild inflammation (reactive gastropathy). There is NO evidence of a bacterial infection in her stomach. This inflammation is best explained by either bile refluxing into the stomach from the small intestine or irritation from non-steroidal anti-inflammatory drugs, such as ibuprofen (Motrin), naproxen (Aleve) and meloxicam (Mobic). Can you find out if her dysphagia has improved after the dilation? documented in this encounter [facility] 12-11-2022 Nurse Note Pt discharged from unit via wheelchair. Pt having sore throat after EGD with dilation. Medicated with cepacol lozenge- pt states that it helped a lot with her discomfort. She was instructed to buy some over the counter for home use. Pt's son was also asking about some numbing liquid medicine- states he will talk with his nurse and they will notify pt. [facility] 12-11-2022 Nurse Note Pt discharged from unit via wheelchair. Pt having sore throat after EGD with dilation. Medicated with cepacol lozenge- pt states that it helped a lot with her discomfort. She was instructed to buy some over the counter for home use. Pt's son was also asking about some numbing liquid medicine- states he will talk with his nurse and they will notify pt. documented in this encounter [facility] 12-11-2022 History and physical note REASON FOR VISIT: EGD HPI: Edison Albarran is a 77 year old female who presents for EGD to evaluate pill and solid food dysphagia. I have confirmed and edited, if necessary, the PFSH obtained by others. REVIEW OF SYSTEMS CONSTITUTIONAL: Negative for unintentional weight loss, malaise or fevers HEENT: Negative for frequent/significant headaches, changes in hearing/vision, nose bleeds or other nasal problems RESPIRATORY: Negative for cough, hemoptysis, wheezing or dyspnea CARDIOVASCULAR: Negative for chest pain, palpitations, syncope or lightheadedness GI: See HPI : Negative for dysuria, polyuria, incontinence or hematuria MUSCULOSKELETAL: Negative for arthralgia or myalgia INTEGUMENTARY/SKIN: Negative for rash or skin lesion HEMATOLOGY/LYMPHOLOGY: Negative for prolonged bleeding, easy bruising or swollen nodes ENDOCRINE: Negative for cold/heat intolerance, polydipsia or goiter NEURO: Negative for encephalopathy, tremor or gait abnormality PSYCH: Negative for new changes in mood or affect ALLERGIES Allergen Reactions Bactrim [Sulfametho* Other: See Comments Unknown. Cephalexin Other: See Comments Unknown. Citalopram Swelling Throat swelled Cymbalta [Duloxetin* Other: See Comments Made her feel groggy. PAST MEDICAL HISTORY Diagnosis Date Advance directive discussed with patient 03/21/202203/2022 Agitation 02/02/2020 Aneurysm of right subclavian artery (HCC) Bilateral carotid artery disease (HCC) 12/20/2015 US 12/2015: 20-40% on Rt and 40-60% on left. US 01/2017 unchanged. Chronic bilateral low back pain with sciatica 12/26/2016 Constipation 07/09/2018 after starting lipitor Decreased sensation of lower extremity 01/04/2016 Essential hypertension 2015 Essential tremor 09/18/2021 Ex-smoker 2015 1/2-1 PPD since early 50's, quit January 2018 Hematuria 12/14/2015 Urology w/u neg. Hypothyroidism (acquired) 2015 Living will on file 03/21/2022 DPA; Casey (son) Lymphocytic colitis 05/16/2020 Possibly Zoloft related. Mediastinal lymphadenopathy 08/04/2018 Prominent Mediastinal lymphadenopathy noted on CT 08/01/18. CT 01/05/2019 no mediastinal lymphadenopathy Mixed hyperlipidemia 2015 Moderate aortic insufficiency 01/19/[address] Cordoba Osteoporosis 05/26/2015 Pain in both hands 12/26/2016 Pain in joint, multiple sites 12/07/2015 On neurontin Recurrent major depressive disorder, in remission (HCC) 07/01/2018 Spinal stenosis, lumbar region, with neurogenic claudication 01/23/2016 Stage 3a chronic kidney disease (HCC) 09/20/2022 Type 2 diabetes mellitus with stage 3a chronic kidney disease (HCC) 09/20/2022 Type 2 diabetes mellitus without complication, without long-term current use of insulin (HCC) 12/07/2015 Urgency of urination 06/13/2016 PAST SURGICAL HISTORY Procedure Laterality Date 2D ECHO (EXEP) 09/2020 EF=64%, Mild Noe dysf and La enlargment, 2+ AR CARPAL TUNNEL RIGHT WRIST COLONOSCOPY 2010 repeat 10 yrs COLONOSCOPY FLX DX W/COLLJ SPEC WHEN PFRMD 04/21/2020 Colonoscopy CORRECTION OF BUNION Left ESOPHAGOGASTRODUODENOSCOPY TRANSORAL DIAGNOSTIC 04/21/2020 EGD FECAL OCCULT BLOOD TEST 01/01/2018 negative HYSTERECTOMY HX 1970 one ovary removed LEXISCAN STRESS TEST 11/21/2020 negative PAST SURGICAL HISTORY OF 1972 appendectomy PAST SURGICAL HISTORY OF 1987 breast lump, benign STRESS TEST 07/09/2016 WNL TUMOR REMOVAL (SPECIFY LOCATION) HX 2001 stomach FAMILY HISTORY Problem Relation Age of Onset Breast Cancer Mother over 50 Hypertension Mother Lipids Mother Osteoporosis Mother Thyroid Mother Cancer Father stomach Cancer Brother lung Alzheimer's Disease Brother dementia Diabetes Brother Social History Tobacco Use Smoking status: Some Days Types: Cigarettes Smokeless tobacco: Never Tobacco comments: Roughly one pack per week Vaping Use Vaping Use: Never used Substance Use Topics Alcohol use: Not Currently Drug use: Never Current Outpatient Medications Medication Sig potassium chloride 20 mEq TbER Take 1 tablet by mouth twice daily. levothyroxine (SYNTHROID) 50 mcg tablet Take 1 tablet by mouth daily before breakfast. Sat-Sat and none on Saturday cyanocobalamin (VITAMIN B-12) 500 mcg tablet Take 1 tablet by mouth once daily. donepezil (ARICEPT) 5 mg tablet Take 1 tablet by mouth daily at bedtime. gabapentin (NEURONTIN) 300 mg capsule Take 1 capsule by mouth daily at bedtime for 30 days. mirabegron (MYRBETRIQ) 50 mg Tb24 Take 1 tablet by mouth once daily. omeprazole (PRILOSEC) 40 mg capsule Take 1 capsule by mouth once daily. atorvastatin (LIPITOR) 40 mg tablet Take 1 tablet by mouth daily at bedtime. For cholesterol. cyclobenzaprine (FLEXERIL) 10 mg tablet Take 1 tablet by mouth every 8 hours as needed for muscle spasm (or pain). FLUoxetine (PROZAC) 40 mg capsule Take 1 capsule by mouth once daily. wheat dextrin (BENEFIBER HEALTHY SHAPE) 5 gram/7.4 gram powd Take 2 teaspoonsful by mouth once daily. potassium chloride 20 mEq/15 mL solution Take 15 mL by mouth twice daily. amino acids (AMINO ACID ORAL) Take by mouth once daily. Peptide powder (Patient not taking: Reported on 11/21/2022) VITAMIN E ACETATE ORAL Take by mouth. ascorbic acid (VITAMIN C ORAL) Take by mouth once daily. Melatonin 5 mg cap Take 1 capsule by mouth daily at bedtime. aspirin, enteric coated (ADULT LOW DOSE ASPIRIN) 81 mg EC tablet Take 1 tablet by mouth once daily. (Patient not taking: Reported on 11/21/2022) Current Facility-Administered Medications Medication Dose Route Frequency lidocaine (PF) 10 mg/mL (1 %) 1-2 mg injection (XYLOCAINE) 0.1-0.2 mL INTRADERMAL PRN lactated ringers iv infusion 30 mL/hr INTRAVENOUS CONTINUOUS PHYSICAL EXAM: BP 163/70 Temp 36.4 C (97.5 F) (Temporal) Resp 18 SpO2 97% Gen: Comfortable in NAD Head: Normocephalic, atraumatic Skin: No jaundice, rashes or skin lesions Eyes: Sclera anicteric, conjunctiva pink Neck: Supple, no palpable lymphadenopathy or goiter Heart: RRR, no murmurs, rubs or gallops Lungs: CTAB, non-labored breathing Abd: Soft, non-distended, non-tender, bowel sounds present, no palpable masses or organomegaly Ext: No lower extremity edema, clubbing or cyanosis. Extremities are warm and well-perfused Neuro: Alert and oriented, no tremor or focal motor deficits Psych: Congruent mood and affect, appropriate insight and judgement ASSESSMENT Dysphagia PLAN EGD +/- dilation [facility] 12-11-2022 History and physical note REASON FOR VISIT: EGD HPI: Edison Albarran is a 77 year old female who presents for EGD to evaluate pill and solid food dysphagia. I have confirmed and edited, if necessary, the PFSH obtained by others. REVIEW OF SYSTEMS CONSTITUTIONAL: Negative for unintentional weight loss, malaise or fevers HEENT: Negative for frequent/significant headaches, changes in hearing/vision, nose bleeds or other nasal problems RESPIRATORY: Negative for cough, hemoptysis, wheezing or dyspnea CARDIOVASCULAR: Negative for chest pain, palpitations, syncope or lightheadedness GI: See HPI : Negative for dysuria, polyuria, incontinence or hematuria MUSCULOSKELETAL: Negative for arthralgia or myalgia INTEGUMENTARY/SKIN: Negative for rash or skin lesion HEMATOLOGY/LYMPHOLOGY: Negative for prolonged bleeding, easy bruising or swollen nodes ENDOCRINE: Negative for cold/heat intolerance, polydipsia or goiter NEURO: Negative for encephalopathy, tremor or gait abnormality PSYCH: Negative for new changes in mood or affect ALLERGIES Allergen Reactions Bactrim [Sulfametho* Other: See Comments Unknown. Cephalexin Other: See Comments Unknown. Citalopram Swelling Throat swelled Cymbalta [Duloxetin* Other: See Comments Made her feel groggy. PAST MEDICAL HISTORY Diagnosis Date Advance directive discussed with patient 03/21/202203/2022 Agitation 02/02/2020 Aneurysm of right subclavian artery (HCC) Bilateral carotid artery disease (HCC) 12/20/2015 US 12/2015: 20-40% on Rt and 40-60% on left. US 01/2017 unchanged. Chronic bilateral low back pain with sciatica 12/26/2016 Constipation 07/09/2018 after starting lipitor Decreased sensation of lower extremity 01/04/2016 Essential hypertension 2015 Essential tremor 09/18/2021 Ex-smoker 2015 1/2-1 PPD since early 50's, quit January 2018 Hematuria 12/14/2015 Urology w/u neg. Hypothyroidism (acquired) 2015 Living will on file 03/21/2022 DPA; Casey (son) Lymphocytic colitis 05/16/2020 Possibly Zoloft related. Mediastinal lymphadenopathy 08/04/2018 Prominent Mediastinal lymphadenopathy noted on CT 08/01/18. CT 01/05/2019 no mediastinal lymphadenopathy Mixed hyperlipidemia 2015 Moderate aortic insufficiency 01/19/[address] Cordoba Osteoporosis 05/26/2015 Pain in both hands 12/26/2016 Pain in joint, multiple sites 12/07/2015 On neurontin Recurrent major depressive disorder, in remission (HCC) 07/01/2018 Spinal stenosis, lumbar region, with neurogenic claudication 01/23/2016 Stage 3a chronic kidney disease (HCC) 09/20/2022 Type 2 diabetes mellitus with stage 3a chronic kidney disease (HCC) 09/20/2022 Type 2 diabetes mellitus without complication, without long-term current use of insulin (HCC) 12/07/2015 Urgency of urination 06/13/2016 PAST SURGICAL HISTORY Procedure Laterality Date 2D ECHO (EXEP) 09/2020 EF=64%, Mild Noe dysf and La enlargment, 2+ AR CARPAL TUNNEL RIGHT WRIST COLONOSCOPY 2010 repeat 10 yrs COLONOSCOPY FLX DX W/COLLJ SPEC WHEN PFRMD 04/21/2020 Colonoscopy CORRECTION OF BUNION Left ESOPHAGOGASTRODUODENOSCOPY TRANSORAL DIAGNOSTIC 04/21/2020 EGD FECAL OCCULT BLOOD TEST 01/01/2018 negative HYSTERECTOMY HX 1970 one ovary removed LEXISCAN STRESS TEST 11/21/2020 negative PAST SURGICAL HISTORY OF 1972 appendectomy PAST SURGICAL HISTORY OF 1987 breast lump, benign STRESS TEST 07/09/2016 WNL TUMOR REMOVAL (SPECIFY LOCATION) HX 2001 stomach FAMILY HISTORY Problem Relation Age of Onset Breast Cancer Mother over 50 Hypertension Mother Lipids Mother Osteoporosis Mother Thyroid Mother Cancer Father stomach Cancer Brother lung Alzheimer's Disease Brother dementia Diabetes Brother Social History Tobacco Use Smoking status: Some Days Types: Cigarettes Smokeless tobacco: Never Tobacco comments: Roughly one pack per week Vaping Use Vaping Use: Never used Substance Use Topics Alcohol use: Not Currently Drug use: Never Current Outpatient Medications Medication Sig potassium chloride 20 mEq TbER Take 1 tablet by mouth twice daily. levothyroxine (SYNTHROID) 50 mcg tablet Take 1 tablet by mouth daily before breakfast. Sat-Sat and none on Saturday cyanocobalamin (VITAMIN B-12) 500 mcg tablet Take 1 tablet by mouth once daily. donepezil (ARICEPT) 5 mg tablet Take 1 tablet by mouth daily at bedtime. gabapentin (NEURONTIN) 300 mg capsule Take 1 capsule by mouth daily at bedtime for 30 days. mirabegron (MYRBETRIQ) 50 mg Tb24 Take 1 tablet by mouth once daily. omeprazole (PRILOSEC) 40 mg capsule Take 1 capsule by mouth once daily. atorvastatin (LIPITOR) 40 mg tablet Take 1 tablet by mouth daily at bedtime. For cholesterol. cyclobenzaprine (FLEXERIL) 10 mg tablet Take 1 tablet by mouth every 8 hours as needed for muscle spasm (or pain). FLUoxetine (PROZAC) 40 mg capsule Take 1 capsule by mouth once daily. wheat dextrin (BENEFIBER HEALTHY SHAPE) 5 gram/7.4 gram powd Take 2 teaspoonsful by mouth once daily. potassium chloride 20 mEq/15 mL solution Take 15 mL by mouth twice daily. amino acids (AMINO ACID ORAL) Take by mouth once daily. Peptide powder (Patient not taking: Reported on 11/21/2022) VITAMIN E ACETATE ORAL Take by mouth. ascorbic acid (VITAMIN C ORAL) Take by mouth once daily. Melatonin 5 mg cap Take 1 capsule by mouth daily at bedtime. aspirin, enteric coated (ADULT LOW DOSE ASPIRIN) 81 mg EC tablet Take 1 tablet by mouth once daily. (Patient not taking: Reported on 11/21/2022) Current Facility-Administered Medications Medication Dose Route Frequency lidocaine (PF) 10 mg/mL (1 %) 1-2 mg injection (XYLOCAINE) 0.1-0.2 mL INTRADERMAL PRN lactated ringers iv infusion 30 mL/hr INTRAVENOUS CONTINUOUS PHYSICAL EXAM: BP 163/70 Temp 36.4 C (97.5 F) (Temporal) Resp 18 SpO2 97% Gen: Comfortable in NAD Head: Normocephalic, atraumatic Skin: No jaundice, rashes or skin lesions Eyes: Sclera anicteric, conjunctiva pink Neck: Supple, no palpable lymphadenopathy or goiter Heart: RRR, no murmurs, rubs or gallops Lungs: CTAB, non-labored breathing Abd: Soft, non-distended, non-tender, bowel sounds present, no palpable masses or organomegaly Ext: No lower extremity edema, clubbing or cyanosis. Extremities are warm and well-perfused Neuro: Alert and oriented, no tremor or focal motor deficits Psych: Congruent mood and affect, appropriate insight and judgement ASSESSMENT Dysphagia PLAN EGD +/- dilation documented in this encounter [facility] 12-07-2022 Miscellaneous Notes Patient is scheduled. Order signed. Thank you Spoke with patient and son, discussed having EGD done. The son would like to have this done. Pt is willing but a little more hesitant. I think she was confused at what the EGD was because she is schedule for a GI follow up but not until April. After discussing further she is agreeable. Dr. Hill please sign orders. EOH please schedule once orders are signed Sandra Valdes RN Sandra, can you call Edison and see how she's feeling and if she's open to scheduling an endoscopy? Her PCP recently saw her. She's have significant upper GI symptoms. EGD has been recommended on multiple occasions, but she's declined. I really think this needs to be done. If she's agreeable, I'll place an order. documented in this encounter [facility] 12-06-2022 Miscellaneous Notes Pt notified & states understanding. Ofe Montes LPN Advise patient she will need to stay on the liquid then. Patient was calling in regarding her potassium pill. She does not like the pill. States it it too big and leaves crystals on her tongue. Please review. VIOLETTA Ibarra December 05, 2022 6:08 PM documented in this encounter [facility] 12-06-2022 Miscellaneous Notes Pt notified of results & instructions, pt verbalized understanding. Ofe Montes LPN No answer no voicemail. Will try again later. Brenda Sanabria MA Let patient know her magnesium and potassium were ok. Her thyroid lab shows she is getting too much thyroid medication. I want her to stay on the 50 mcg tabs but only take one a day Sat-Sat and none on Saturday. Needs repeat thyroid lab in 2 months. Order placed. documented in this encounter [facility] 12-04-2022 History of Present illness Narrative Chief Complaint Patient presents with: ER F/U: Weakness/dizziness HPI Edison Albarran is a 77 year old female who presents here today for Above Complaints.. Patient was seen at [facility] on 11/30/2022: (HPI brought forward): This is a 77-year-old female presenting with her son for decreased appetite nausea with food some mild generalized weakness and lightheadedness. Son states that he is concerned with her nutrition status because she eats less than a bird . Patient feels that she hydrates well drinks clear liquids like tea and 7-Up but she does not feel like eating and when she does not eat her stomach feels upset. She states this has been going on for a while but worsened over the past 2 weeks. She has some associated abdominal pain now. No vomiting just nausea. Normal bowel movements. No fevers or chills. No chest pain or shortness of breath. No focal weakness no numbness tingling. No syncope, no falls. Patient is still able to do her activities of daily living. Patient's work-up was unremarkable for acute pathology on the CT possible mild colitis but unchanged from previous CT imaging. The patient is not having diarrhea. Her food intolerance may be from gastritis or esophagitis and she is already following with GI and I did refer the patient back to GI. Her potassium and magnesium were slightly low likely dietary related and she was given supplementation in ER. Chest XR was normal. Patient does not notice any of the dizziness (off balance feelings) with rolling over in bed. She notices the off balance feelings with standing up. Has not fallen or passed out. No sweating. No shortness of breath, chest pain, edema or palpitations. Patient has been putting off getting her EGD completed til her son was home to get her to the appt. Past medical history, appointments, medications, allergies reviewed. Previous Medical History PAST MEDICAL HISTORY Diagnosis Date Advance directive discussed with patient 03/21/202203/2022 Agitation 02/02/2020 Aneurysm of right subclavian artery (HCC) Bilateral carotid artery disease (HCC) 12/20/2015 US 12/2015: 20-40% on Rt and 40-60% on left. US 01/2017 unchanged. Chronic bilateral low back pain with sciatica 12/26/2016 Constipation 07/09/2018 after starting lipitor Decreased sensation of lower extremity 01/04/2016 Essential hypertension 2015 Essential tremor 09/18/2021 Ex-smoker 2015 1/2-1 PPD since early , quit January 2018 Hematuria 12/14/2015 Urology w/u neg. Hypothyroidism (acquired) 2015 Living will on file 03/21/2022 DPA; Casey (son) Lymphocytic colitis 05/16/2020 Possibly Zoloft related. Mediastinal lymphadenopathy 08/04/2018 Prominent Mediastinal lymphadenopathy noted on CT 08/01/18. CT 01/05/2019 no mediastinal lymphadenopathy Mixed hyperlipidemia 2015 Moderate aortic insufficiency 01/19/[address] Cordoba Osteoporosis 05/26/2015 Pain in both hands 12/26/2016 Pain in joint, multiple sites 12/07/2015 On neurontin Recurrent major depressive disorder, in remission ([facility]) 07/01/2018 Spinal stenosis, lumbar region, with neurogenic claudication 01/23/2016 Stage 3a chronic kidney disease ([facility]) 09/20/2022 Type 2 diabetes mellitus with stage 3a chronic kidney disease ([facility]) 09/20/2022 Type 2 diabetes mellitus without complication, without long-term current use of insulin ([facility]) 12/07/2015 Urgency of urination 06/13/2016 Previous Surgical History PAST SURGICAL HISTORY Procedure Laterality Date 2D ECHO (EXEP) 09/2020 EF=64%, Mild Noe dysf and La enlargment, 2+ AR CARPAL TUNNEL RIGHT WRIST COLONOSCOPY 2010 repeat 10 yrs COLONOSCOPY FLX DX W/COLLJ SPEC WHEN PFRMD 04/21/2020 Colonoscopy CORRECTION OF BUNION Left ESOPHAGOGASTRODUODENOSCOPY TRANSORAL DIAGNOSTIC 04/21/2020 EGD FECAL OCCULT BLOOD TEST 01/01/2018 negative HYSTERECTOMY HX 1970 one ovary removed LEXISCAN STRESS TEST 11/21/2020 negative PAST SURGICAL HISTORY OF 1971 appendectomy PAST SURGICAL HISTORY OF 1987 breast lump, benign STRESS TEST 07/09/2016 WNL TUMOR REMOVAL (SPECIFY LOCATION) HX 2002 stomach Family History FAMILY HISTORY Problem Relation Age of Onset Breast Cancer Mother over 50 Hypertension Mother Lipids Mother Osteoporosis Mother Thyroid Mother Cancer Father stomach Cancer Brother lung Alzheimer's Disease Brother dementia Diabetes Brother Patient Allergies ALLERGIES Allergen Reactions Bactrim [Sulfametho* Other: See Comments Unknown. Cephalexin Other: See Comments Unknown. Citalopram Swelling Throat swelled Cymbalta [Duloxetin* Other: See Comments Made her feel groggy. Current Medications Current Outpatient Medications on File Prior to Visit Medication Sig cyanocobalamin (VITAMIN B-12) 500 mcg tablet Take 1 tablet by mouth once daily. donepezil (ARICEPT) 5 mg tablet Take 1 tablet by mouth daily at bedtime. gabapentin (NEURONTIN) 300 mg capsule Take 1 capsule by mouth daily at bedtime for 30 days. mirabegron (MYRBETRIQ) 50 mg Tb24 Take 1 tablet by mouth once daily. omeprazole (PRILOSEC) 40 mg capsule Take 1 capsule by mouth once daily. levothyroxine (SYNTHROID) 50 mcg tablet Take 1 tablet by mouth daily before breakfast. atorvastatin (LIPITOR) 40 mg tablet Take 1 tablet by mouth daily at bedtime. For cholesterol. cyclobenzaprine (FLEXERIL) 10 mg tablet Take 1 tablet by mouth every 8 hours as needed for muscle spasm (or pain). FLUoxetine (PROZAC) 40 mg capsule Take 1 capsule by mouth once daily. wheat dextrin (BENEFIBER HEALTHY SHAPE) 5 gram/7.4 gram powd Take 2 teaspoonsful by mouth once daily. potassium chloride 20 mEq/15 mL solution Take 15 mL by mouth twice daily. VITAMIN E ACETATE ORAL Take by mouth. Melatonin 5 mg cap Take 1 capsule by mouth daily at bedtime. amino acids (AMINO ACID ORAL) Take by mouth once daily. Peptide powder (Patient not taking: Reported on 11/21/2022) ascorbic acid (VITAMIN C ORAL) Take by mouth once daily. aspirin, enteric coated (ADULT LOW DOSE ASPIRIN) 81 mg EC tablet Take 1 tablet by mouth once daily. (Patient not taking: Reported on 11/21/2022) No current facility-administered medications on file prior to visit. Social History Social History Tobacco Use Smoking status: Some Days Types: Cigarettes Smokeless tobacco: Never Tobacco comments: Roughly one pack per week Vaping Use Vaping Use: Never used Substance Use Topics Alcohol use: Not Currently Drug use: Never Review of Symptoms REVIEW OF SYSTEMS GENERAL: Negative for malaise, fever, Positive for significant weight loss of 12 lbs since 09/10/2022 RESPIRATORY: Negative for cough, hemoptysis, wheezing, COPD, dyspnea or shortness of breath CARDIOVASCULAR: Negative for chest pain, leg swelling, hypertension, CHF or palpitations GI: has had nausea at times. On occasion has had vomiting. Denies diarrhea but stools are very soft and not firm. NEURO: No history of headaches, syncope, paralysis, seizures or tremors EXAM: BP 118/76 Pulse 68 Resp 14 Wt 51.3 kg (113 lb) BMI 21.35 kg/m Last 6 Encounter Wt Readings: Date: Wt: 12/04/2022 51.3 kg (113 lb) 11/30/2022 51.3 kg (113 lb) 11/21/2022 53.1 kg (117 lb) 11/13/2022 54 kg (119 lb) 09/20/2022 56.7 kg (125 lb) 09/10/2022 56.7 kg (125 lb) General Appearance: Well appearing, alert, in no acute distress, well-hydrated, well nourished. Appears thinner. . Eyes: Anicteric sclera. Pupils are equally round. Extraocular movements are intact. . Neck: Supple, no adenopathy; thyroid symmetric, normal size, no bruits. Lungs: Lungs clear to auscultation. No wheezing, rhonchi, rales.. Heart: RRR without murmur, gallop, or rubs. No ectopy. Abdomen: Abdomen soft, with generalized tenderness. No rebound pain or guarding. Bowel sounds normal. No masses, organomegaly. Extremities: No deformities, edema, Peripheral Pulses: Normal. Health Maintenance List ADVANCE DIRECTIVE DISCUSSION due on 10/07/2022 SHINGRIX VACCINE(2 of 2) due on 09/20/2023 HBA1C due on 03/14/2023 DILATED RETINAL EXAM due on 08/08/2023 URINE ALBUMIN:CREATININE RATIO due on 09/13/2023 LDL CHOLESTEROL due on 09/13/2023 DIABETIC FOOT EXAM due on 09/20/2023 ANNUAL PCP TEAM CHRONIC DISEASE VISIT due on 11/21/2023 BP CONTROLLED (<130/80) due on 11/21/2023 SERUM CREATININE due on 11/30/2023 DTAP,TDAP,TD(3 - Td or Tdap) due on 05/29/2028 BONE DENSITY Completed INFLUENZA Completed COVID-19 VACCINE Completed PNEUMOCOCCAL: 65+ Completed HEPATITIS C SCREENING Discontinued Data reviewed Component Latest Ref Rng & Units 11/30/2022 11/30/2022 11/30/2022 11/30/2022 1:44 PM 1:52 PM 3:06 PM 4:15 PM WBC 3.70 - 11.00 k/uL 8.62 RBC 3.90 - 5.20 m/uL 4.17 Hemoglobin 11.5 - 15.5 g/dL 12.3 Hematocrit 36.0 - 46.0 % 37.4 MCV 80.0 - 100.0 fL 89.7 MCH 26.0 - 34.0 pg 29.5 MCHC 30.5 - 36.0 g/dL 32.9 RDW-CV 11.5 - 15.0 % 13.7 Platelet Count 150 - 400 k/uL 271 MPV 9.0 - 12.7 fL 9.2 Neut% % 72.7 Abs Neut (ANC) 1.45 - 7.50 k/uL 6.26 Lymph% % 18.4 Abs Lymph 1.00 - 4.00 k/uL 1.59 Hooker% % 7.9 Abs Hooker <0.87 k/uL 0.68 Eosin% % 0.7 Abs Eosin <0.46 k/uL 0.06 Baso% % 0.2 Abs Baso <0.11 k/uL <0.03 Immature Gran % % 0.1 IMMATURE GRANS (ABS) <0.10 k/uL <0.03 DTYPE Auto Protein, Total 6.3 - 8.0 g/dL 6.4 Albumin 3.9 - 4.9 g/dL 4.2 Calcium 8.5 - 10.2 mg/dL 9.3 Bilirubin, Total 0.2 - 1.3 mg/dL 0.5 Alkaline Phosphatase 34 - 123 U/L 112 AST 13 - 35 U/L 27 ALT 7 - 38 U/L 16 Glucose 74 - 99 mg/dL 103 (H) BUN 7 - 21 mg/dL 10 Creatinine 0.58 - 0.96 mg/dL 0.91 Sodium 136 - 144 mmol/L 138 Potassium 3.7 - 5.1 mmol/L 3.4 (L) Chloride 97 - 105 mmol/L 101 CO2 22 - 30 mmol/L 28 Anion Gap 9 - 18 mmol/L 9 eGFR >=60 mL/min/1.73m 65 Color Yellow Yellow Clarity Clear Clear Glucose, Urine Negative Negative Bilirubin, Urine Negative Negative Ketones, Urine Negative Negative Specific [place], Ur 1.005 - 1.030 <=1.005 (L) Hemoglobin/Blood,Ur Negative Negative pH, Urine 5.0 - 8.0 5.5 Protein, Urine Negative Negative Urobilinogen 0.2-1.0 EU/dL 0.2 EU/dL Nitrites Negative Negative Leukest Negative Negative WBC, Urine 0-5 /HPF 0-5 /HPF RBC, Urine 0-3 /HPF 0-3 /HPF COVID 19 Result See comment Not detected Influenza A PCR Not Detected Not detected Influenza B PCR Not Detected Not detected RSV PCR Not Detected Not detected Magnesium 1.7 - 2.3 mg/dL 1.6 (L) Lipase 16 - 61 U/L 17 ADIA High Sensitivity <12 ng/L 12 (H) 13 (H) 13 (H) A/P ASSESSMENT/PLAN: 1. Dizziness - ICD9: 780.4, ICD10: R42 (primary diagnosis) Check - CTA HEAD W IVCON - CTA NECK W IVCON - IV CONTRAST (RADIOLOGY PROCEDURE) Patient continues to have dizziness. Carotid US 09/2022 showed stability but also said the the narrowing of 60-79% on the left may be underestimated. Need CT to further characterize. 2. Gastritis without bleeding, unspecified chronicity, unspecified gastritis type - ICD9: 535.50, ICD10: K29.70 - advised patient she needs to get back in with Gastro and get her EGD completed. Patient also continues to have colitis changes on recent CT that are stable. 3. Weight loss - ICD9: 783.21, ICD10: R63.4 - as per #2 - needs to continue the Boost 4. Hypothyroidism (acquired) - ICD9: 244.9, ICD10: E03.9 - Instructed patient on importance of taking on an empty stomach either first thing in the morning or at bedtime. - continue current dose of Synthroid Check - TSH BLD 5. Hypokalemia - ICD9: 276.8, ICD10: E87.6 Check - POTASSIUM BLD: will try oral tablet twice a day crushed and placed in yogurt. 6. Hypomagnesemia - ICD9: 275.2, ICD10: E83.42 Check - MAGNESIUM BLD Keep appt in December 2022. I spent a total of 41 minutes on the date of the service which included preparing to see the patient, [id number] patient care, completing clinical documentation, performing a medically appropriate examination, counseling and educating the patient/family/caregiver and ordering medications, tests, or procedures. Kurt Saravia MD documented in this encounter [facility] 11-30-2022 Miscellaneous Notes Agree with advise given. Patient's son calls and states that patient is looking worse then last time he saw her a couple days ago. Patient has been nauseated and therefore she has not been eating. Patient has denied vomiting but son feels like she isn't necessarily telling the truth. Patient skin is looking blotchy and saggy. Patient is also weaker than normal. Son was wanting to take patient to ER but patient was refusing. Son calling to confirm that this is what he should be doing. Advised son that since patient may be dehydrated patient needs to go to ER to possibly receive IV fluids. Son voiced understanding and states that is what he thought, he just wanted to confirm that he was right. Please review and advise, Teresa Yuen RN documented in this encounter [facility] 11-26-2022 Miscellaneous Notes Noted. Pt notified of instructions & verbalized understanding. Pt reports the following are her AM meds: Omeprazole, Fluoxetine, levothyroxine & potassium. Ofe Montes LPN She can take her evening medications as normal. And return to normal morning dose tomorrow. Can you ask her which meds she takes in the morning though. Mally Calzada PA-C Pt reports she took he am medications and vomited them up. Pt asking if she needs to retake or wait and take her evening pills like normal. Please advise pt. Latoya Ponce LPN documented in this encounter [facility] 11-26-2022 Miscellaneous Notes Spoke with pt and information listed below given. Pt verbalizes understanding. Latoya Ponce LPN Let patient know that xrays show moderate to severe arthritic changes in neck. And same in low back. Can consider Physical Therapy and pain management consult based on patient and family's preferences. Just let us know. documented in this encounter [facility] 11-22-2022 Miscellaneous Notes Updated. Spoke with patient and informed. Verbalized understanding. Would like Rx to go to [facility], not [facility]. Please resend. Phyllis Virk Let patient/son know that her labs looked okay. Her B12 is 398 and we like this over 400 for memory health. So would recommend 500mcg once daily. I will send in but insurance may not cover. So get OTC if needed. Mally Calzada PA-C documented in this encounter [facility] 11-21-2022 History of Present illness Narrative Radiology Service Progress Note PATIENT NAME: Edison Albarran DATE OF SERVICE: November 21, 2022 TIME: 2:06 PM PATIENT IDENTITY VERIFICATION COMPLETED USING TWO (2) IDENTIFIERS: Name and Date of confirmed by patient verbally. FALL SCREENING: Has the patient had 2 falls in the last year or 1 fall with injury or currently using an Ambulatory Assistive Device (Walker, Cane, Wheelchair, Crutches, etc.)? No PATIENT GENDER DATA: Female. status: : No status: NO. PATIENT RELEVANT IMPLANT DATA REVIEWED: Yes RADIOLOGY DEPARTMENT: General X-ray: Exam(s) Completed: Spine X-Ray(s): Cervical AP / LAT / OBL and Lumbar AP / LAT / L5-S1 PERIPHERAL IV DATA: Not applicable SIGNED BY: RT Ebonie(R) November 21, 2022 2:06 PM documented in this encounter [facility] 11-15-2022 Miscellaneous Notes I spoke with patient regarding sx's. She states he episode she had the other day swallowing pills occurred because she took her pills and the phone rang; she had a hard time swallowing as she did not take her pills with enough water. She has no bottom teeth, she has a difficult time chewing and will need to spit out the food if it gets too dry. (Then her dog eats it). She cannot afford to get her dentures fixed at this time. Her diarrhea is intermittent, some day bad. She is using Vital protien collagen peptids: she adtually feels better when she takes this with more solid BM.. She will try to find benefiber (she has had a hard time finding in the store). I advised she should ask the pharmacist to help find it. She was encouraged to call the office if her swallowing or diarrhea gets worse. Sandra Valdes RN Sandra, can you call Edison for an update on her swallowing based on her recent difficulty with swallowing pills? Can you also get an update about her lymphocytic colitis? If fiber isn't working, we were going to try Questran. Thank you Please advise Coleen Ye Ma Patient's son Casey calls and is concerned because patient just had pill stuck in her throat. Patient had several emesis and now it is not stuck in throat. Casey is unavailable at this time to help his mom out. Casey is concerned about patient. Advised Casey that patient states that she is waiting on him for appointment and that patient was refusing to do EGD. Casey states that patient needs appointment sooner than he can get out of where he is at. Casey asking for patient to be called to schedule appointment. Please review and advise, Teresa Yuen RN I spoke with patient regarding results of esophagram. She is not willing to undergo an EGD at this time. She feels the only reason she cannot swallow pills is because she does not have bottom dentures. She is very worried about an EGD as her hate throat cancer and she is worried about the outcome. I offered her an office visit to discuss more or offered her time to think about an EGD and discuss with her family and schedule in the future. She states her son will be out of town for 6-8 weeks and she would prefer to have an office visit when he returns so he can be available to discuss. PSS team please call to schedule f/u with Dr. Sergio Valdes RN Sandra, can you call Edison and review her esophagram results? The test was incomplete due to dizziness experienced during the test, but her barium tablet did not pass easily through the esophagus. If she is still experiencing dysphagia and taking omeprazole 40 mg/day, I think an EGD will be the next best step to work this up. If she's comfortable with proceeding, I'll place an order for this. documented in this encounter [facility] 11-13-2022 Instructions Colten Oro PA-C - 11/13/2022 4:02 PM EST > 1 year Appt w/ B. ABIMAEL Oro, [place] for annual follow-up and refills. documented in this encounter [facility] 11-13-2022 History of Present illness Narrative Images from the original note were not included. [facility] ESTABLISHED PATIENT CLINIC NOTE Some elements copied from his previous note, which have been updated where appropriate, and all reflect current medical decision making from date of this visit. SERVICE DATE: 11/13/2022 SERVICE TIME: 3:42 PM NAME: Edison Albarran CHIEF COMPLAINT: OAB follow up HISTORY OF PRESENT ILLNESS: Edison Albarran is a 77 year old female an established patient following up for OAB for annual follow-up The patient reports doing very well on Myrbetriq she is able to get outside of the house now and be more active LUTS: Other symptoms: LABS: Hematocrit (%) Date Value 09/13/2022 38.4 12/05/2021 38.9 05/10/2021 38.0 11/28/2020 36.8 07/07/2020 40.4 03/09/2020 37.6 11/04/2019 35.9 06/24/2019 39.3 No results found for: PSA No results found for: TESTOST No results found for: PSA Creatinine Date Value Ref Range Status 09/13/2022 1.06 (H) 0.58 - 0.96 mg/dL Final 12/05/2021 1.06 (H) 0.58 - 0.96 mg/dL Final 05/10/2021 0.85 0.58 - 0.96 mg/dL Final 04/25/2021 0.76 0.58 - 0.96 mg/dL Final MEDICATIONS: mirabegron (MYRBETRIQ) 50 mg Tb24 TAKE 1 TABLET BY MOUTH DAILY omeprazole (PRILOSEC) 40 mg capsule Take 1 capsule by mouth once daily. levothyroxine (SYNTHROID) 50 mcg tablet Take 1 tablet by mouth daily before breakfast. cyclobenzaprine (FLEXERIL) 10 mg tablet Take 1 tablet by mouth every 8 hours as needed for muscle spasm (or pain). potassium chloride 20 mEq/15 mL solution Take 15 mL by mouth twice daily. amino acids (AMINO ACID ORAL) Take by mouth once daily. Peptide powder ascorbic acid (VITAMIN C ORAL) Take by mouth once daily. Melatonin 5 mg cap Take 1 capsule by mouth daily at bedtime. aspirin, enteric coated (ADULT LOW DOSE ASPIRIN) 81 mg EC tablet Take 1 tablet by mouth once daily. atorvastatin (LIPITOR) 40 mg tablet Take 1 tablet by mouth daily at bedtime. For cholesterol. (Patient not taking: Reported on 11/13/2022) FLUoxetine (PROZAC) 40 mg capsule Take 1 capsule by mouth once daily. (Patient not taking: Reported on 11/13/2022) wheat dextrin (BENEFIBER HEALTHY SHAPE) 5 gram/7.4 gram powd Take 2 teaspoonsful by mouth once daily. (Patient not taking: Reported on 11/13/2022) VITAMIN E ACETATE ORAL Take by mouth. (Patient not taking: Reported on 11/13/2022) PAST MEDICAL HISTORY: PAST MEDICAL HISTORY Diagnosis Date Advance directive discussed with patient 03/21/202203/2022 Agitation 02/02/2020 Aneurysm of right subclavian artery (HCC) Bilateral carotid artery disease (HCC) 12/20/2015 US 12/2015: 20-40% on Rt and 40-60% on left. US 01/2017 unchanged. Chronic bilateral low back pain with sciatica 12/26/2016 Constipation 07/09/2018 after starting lipitor Decreased sensation of lower extremity 01/04/2016 Essential hypertension 2015 Essential tremor 09/18/2021 Ex-smoker 2015 1/2-1 PPD since early 50s, quit January 2018 Hematuria 12/14/2015 Urology w/u neg. Hypothyroidism (acquired) 2015 Living will on file 03/21/2022 DPA; Casey (son) Lymphocytic colitis 05/16/2020 Possibly Zoloft related. Mediastinal lymphadenopathy 08/04/2018 Prominent Mediastinal lymphadenopathy noted on CT 08/01/18. CT 01/05/2019 no mediastinal lymphadenopathy Mixed hyperlipidemia 2015 Moderate aortic insufficiency 01/19/[address] Cordoba Osteoporosis 05/26/2015 Pain in both hands 12/26/2016 Pain in joint, multiple sites 12/07/2015 On neurontin Recurrent major depressive disorder, in remission ([facility]) 07/01/2018 Spinal stenosis, lumbar region, with neurogenic claudication 01/23/2016 Stage 3a chronic kidney disease ([facility]) 09/20/2022 Type 2 diabetes mellitus with stage 3a chronic kidney disease ([facility]) 09/20/2022 Type 2 diabetes mellitus without complication, without long-term current use of insulin ([facility]) 12/07/2015 Urgency of urination 06/13/2016 PAST SURGICAL HISTORY: PAST SURGICAL HISTORY Procedure Laterality Date 2D ECHO (EXEP) 09/2020 EF=64%, Mild Noe dysf and La enlargment, 2+ AR CARPAL TUNNEL RIGHT WRIST COLONOSCOPY 2010 repeat 10 yrs COLONOSCOPY FLX DX W/COLLJ SPEC WHEN PFRMD 04/21/2020 Colonoscopy CORRECTION OF BUNION Left ESOPHAGOGASTRODUODENOSCOPY TRANSORAL DIAGNOSTIC 04/21/2020 EGD FECAL OCCULT BLOOD TEST 01/01/2018 negative HYSTERECTOMY HX 1970 one ovary removed LEXISCAN STRESS TEST 11/21/2020 negative PAST SURGICAL HISTORY OF 1971 appendectomy PAST SURGICAL HISTORY OF 1987 breast lump, benign STRESS TEST 07/09/2016 WNL TUMOR REMOVAL (SPECIFY LOCATION) HX 2002 stomach FAMILY HISTORY: FAMILY HISTORY Problem Relation Age of Onset Breast Cancer Mother over 50 Hypertension Mother Lipids Mother Osteoporosis Mother Thyroid Mother Cancer Father stomach Cancer Brother lung Alzheimer's Disease Brother dementia Diabetes Brother SOCIAL HISTORY: Social Connections: Not on file REVIEW OF SYSTEMS: GENERAL: No fever, chills, weight loss, or fatigue. All other systems reviewed and are negative PHYSICAL EXAMINATION: Blood pressure 126/74, pulse 62, temperature 36.7 C (98 F), temperature source Temporal, resp. rate 14, height 149.9 cm (4' 11 ), weight 54 kg (119 lb), SpO2 96 %. GENERAL: WNL nutrition, no deformities, healthy appearing PROBLEM LIST REVIEW: Yes LABS: Results for orders placed or performed in visit on 11/13/22 UA DIP, URINE (POC) Result Value Ref Range GLUCOSE UA (POCT) Negative Negative mg/dL BILIRUBIN UA (POCT) Negative Negative KETONE UA (POCT) Negative Negative mg/dL SPECIFIC GRAVITY UA (POCT) <=1.005 (A) 1.005 - 1.030 HEMOGLOBIN/BLOOD UA (POCT) Small (A) Negative PH UA (POCT) 5.5 4.5 - 8.0 PROTEIN UA (POCT) Negative Negative mg/dL UROBILINOGEN UA (POCT) 0.2 Normal E.U./dL NITRITE UA (POCT) Negative Negative LEUKOCYTES UA (POCT) Negative Negative COLOR UA (POCT) Light yellow CLARITY UA (POCT) Clear PROCEDURES: PVR: 0 ml IMPRESSION/PLAN: 77 year old female with 1. Overactive bladder - ICD9: 596.51, ICD10: N32.81 > Myrbetriq 50 mg daily > 1 year Appt w/ B. ABIMAEL Oro MT, PA-C for annual follow-up and refills. ABIMAEL Telles MT, PA-C Verified name and date of . CC Post Void Residual HPI: Edison Albarran is a 77 year old female. The patient is here now for an appointment with ABIMAEL Telles MT, PA-COV. Procedure: Explained procedure to patient and verbalizes understanding. Performed a PVR. Patient urinated and instructed to empty bladder as much as possible just prior to having PVR done using bladder ultrasound scanner. Results of scan: 0 mL The patient tolerated the procedure well. Plan: Appointment with Colten. documented in this encounter [facility] 11-09-2022 Miscellaneous Notes Short Script sent, but needs appointment before more refills. Thank you, Trent documented in this encounter [facility] 10-09-2022 Miscellaneous Notes Patient is scheduled for 11/08/22 with Sarah Tracey at the [facility]. Son (Casey) returns call and provider message reviewed. Son requests call back at [phone] to schedule consult to vascular surgery (Dr. Tracey). Elina Briscoe RN Left vm for son, Casey, to return call to nurse for provider message. Let patient know th US of her neck arteries showed no increased narrowing compared to US done in 2020. However, the subclavian artery on the right maybe slightly enlarged and would like her to see Dr. Tracey in vascular. Order placed. documented in this encounter [facility] 09-20-2022 Miscellaneous Notes Noted. Hong with [employer] called and had some questions for the Prior authorization on the patients Carotid US. With with information he was able to give the authorization # [id number]. He states it is good from Sep 20 through December 18, 2022. He did read off a clause about how it does not guarantee payment dependant on your standing with your insurance at the time. documented in this encounter [facility] 09-20-2022 Instructions Kurt Saravia MD - 09/20/2022 11:04 AM EST Please get labs done on or after 03/08/2023 prior to your next visit. documented in this encounter [facility] 09-20-2022 History of Present illness Narrative Medicare Yearly Visit Medical B eligibilty date 11/07/2001 Date of last exam 07/07/2020 PAST MEDICAL HISTORY PAST MEDICAL HISTORY Diagnosis Date Bilateral carotid artery disease (HCC) 12/20/2015 US 12/2015: 20-40% on Rt and 40-60% on left. US 01/2017 unchanged. Chronic bilateral low back pain with sciatica 12/26/2016 Constipation 07/09/2018 after starting lipitor Decreased sensation of lower extremity 01/04/2016 Elevated fasting blood sugar 12/07/2015 Essential hypertension 2015 Ex-smoker 2015 1/2-1 PPD since early 50's, quit January 2018 Hematuria 12/14/2015 Urology w/u neg. Hypothyroidism (acquired) 2015 Mediastinal lymphadenopathy 08/04/2018 Prominent Mediastinal lymphadenopathy noted on CT 08/01/18. Repeat 4 months (Nov 2018) Mixed hyperlipidemia 2015 Osteoporosis 05/26/2015 Pain in both hands 12/26/2016 Pain in joint, multiple sites 12/07/2015 On neurontin Recurrent major depressive disorder, in remission (HCC) 07/01/2018 Smoker 2015 1/2-1 PPD since early s Spinal stenosis, lumbar region, with neurogenic claudication 01/23/2016 Urgency of urination 06/13/2016 PAST SURGICAL HISTORY PAST SURGICAL HISTORY Procedure Laterality Date CARPAL TUNNEL RIGHT WRIST COLONOSCOPY 2010 repeat 10 yrs CORRECTION OF BUNION Left FECAL OCCULT BLOOD TEST 01/01/2018 negative HYSTERECTOMY HX 1970 one ovary removed PAST SURGICAL HISTORY OF 1971 appendectomy PAST SURGICAL HISTORY OF 1987 breast lump, benign STRESS TEST 07/09/2016 WNL TUMOR REMOVAL (SPECIFY LOCATION) HX 2001 stomach Bactrim [Sulfamethoxazole-Trimethoprim]; Cephalexin Medications reviewed: Yes FAMILY HISTORY FAMILY HISTORY Problem Relation Age of Onset Breast Cancer Mother over 50 Hypertension Mother Lipids Mother Osteoporosis Mother Thyroid Mother Cancer Father stomach Cancer Brother lung Alzheimer's Disease Brother dementia Diabetes Brother SOCIAL HISTORY: Social History Socioeconomic History Marital status: Spouse name: Not on file Number of children: 2 Years of education: Not on file Highest education level: Not on file Social Needs Financial resource strain: Not on file Food insecurity - worry: Not on file Food insecurity - inability: Not on file Transportation needs - medical: Not on file Transportation needs - non-medical: Not on file Occupational History Occupation: Retired Tobacco Use Smoking status: Former Smoker Types: Cigarettes Quit date: 06/13/2016 Years since quittin.5 Smokeless tobacco: Never Used Tobacco comment: 4 cigarettes per daily Substance and Sexual Activity Alcohol use: No Drug use: Not on file Sexual activity: Not Currently Other Topics Concerns: Not on file Social History Narrative Not on file Edison denies working out regularly 3-4 times per week with walking on her treadmill like she used too. She watches her diet for sodium, low fat and low cholesterol some of the time. List of current specialists seen: none End of Live Planning discussed including patients advanced directive wishes: Yes I am willing to follow Edison's advanced directives. Depression screen Depression Screening 06/28/2017 08/04/2018 11/04/2019 09/20/2022 PHQ-2 Score 0 0 0 1 Depression screening tool completed and reviewed. Based on score and interview, patient is not at risk for depression. Screening tool discussed with patient, and I recommended no further intervention at this time. Functional Ability/Safety Screen 1. Was the patient's timed Up and Go test unsteady or longer than 30 seconds? No 2. Does the patient need help with the phone, transportation, shopping,preparing meals, housework, laundry, medications or managing money? No 3. Does your home have rugs in the hallway(Y), lack of grab bars in the bathroom, lack of handrails on the stairs(N) or have poor lighting? No Hearing Evaluation: normal PHYSICAL EXAM BP 140/74 (BP Site: Right Arm, BP Position: Sitting, BP Cuff Size: Regular Adult) Pulse 72 Resp 16 Ht 151.1 cm (4' 11.5 ) Wt 56.7 kg (125 lb) BMI 24.82 kg/m Alert and oriented X 3: YES Body mass index is 24.82 kg/m . Visual acuity: see optho See below ASSESSMENT/PLAN: 77 year old female The following prevention plan was discussed during the office visit and provided to the patient: See below. Kurt Saravia MD Chief Complaint Patient presents with: Medicare Wellness Exam HPI Edison Albarran is a 77 year old female who presents here today for extensive Visit. Patient with Hx, bilateral carotid artery disease, DM 2, HTN, Hypothyroidism, Hyperlipidemia, depression, Mod AR, chronic microscopic hematuria, chronic arthritic pain as well as those reviewed and addressed below and in ROS. Patient has been doing well. No new issues or concerns. Has f/u with gastro and has put some weight back on. No longer protein def. Past medical history, appointments, medications, allergies reviewed. Previous Medical History PAST MEDICAL HISTORY Diagnosis Date Advance directive discussed with patient 03/21/202203/2022 Agitation 02/02/2020 Bilateral carotid artery disease (HCC) 12/20/2015 US 12/2015: 20-40% on Rt and 40-60% on left. US 01/2017 unchanged. Chronic bilateral low back pain with sciatica 12/26/2016 Constipation 07/09/2018 after starting lipitor Decreased sensation of lower extremity 01/04/2016 Essential hypertension 2015 Essential tremor 09/18/2021 Ex-smoker 2015 1/2-1 PPD since early 50's, quit January 2018 Hematuria 12/14/2015 Urology w/u neg. Hypothyroidism (acquired) 2015 Living will on file 03/21/2022 DPA; Casey (son) Lymphocytic colitis 05/16/2020 Possibly Zoloft related. Mediastinal lymphadenopathy 08/04/2018 Prominent Mediastinal lymphadenopathy noted on CT 08/01/18. CT 01/05/2019 no mediastinal lymphadenopathy Mixed hyperlipidemia 2015 Moderate aortic insufficiency 01/19/[address] Cordoba Osteoporosis 05/26/2015 Pain in both hands 12/26/2016 Pain in joint, multiple sites 12/07/2015 On neurontin Recurrent major depressive disorder, in remission (HCC) 07/01/2018 Spinal stenosis, lumbar region, with neurogenic claudication 01/23/2016 Type 2 diabetes mellitus without complication, without long-term current use of insulin (HCC) 12/07/2015 Urgency of urination 06/13/2016 Previous Surgical History PAST SURGICAL HISTORY Procedure Laterality Date 2D ECHO (EXEP) 09/2020 EF=64%, Mild Noe dysf and La enlargment, 2+ AR CARPAL TUNNEL RIGHT WRIST COLONOSCOPY 2010 repeat 10 yrs COLONOSCOPY FLX DX W/COLLJ SPEC WHEN PFRMD 04/21/2020 Colonoscopy CORRECTION OF BUNION Left ESOPHAGOGASTRODUODENOSCOPY TRANSORAL DIAGNOSTIC 04/21/2020 EGD FECAL OCCULT BLOOD TEST 01/01/2018 negative HYSTERECTOMY HX 1970 one ovary removed LEXISCAN STRESS TEST 11/21/2020 negative PAST SURGICAL HISTORY OF 1972 appendectomy PAST SURGICAL HISTORY OF 1987 breast lump, benign STRESS TEST 07/09/2016 WNL TUMOR REMOVAL (SPECIFY LOCATION) HX 2001 stomach Family History FAMILY HISTORY Problem Relation Age of Onset Breast Cancer Mother over 50 Hypertension Mother Lipids Mother Osteoporosis Mother Thyroid Mother Cancer Father stomach Cancer Brother lung Alzheimer's Disease Brother dementia Diabetes Brother Patient Allergies ALLERGIES Allergen Reactions Bactrim [Sulfametho* Other: See Comments Unknown. Cephalexin Other: See Comments Unknown. Citalopram Swelling Throat swelled Cymbalta [Duloxetin* Other: See Comments Made her feel groggy. Current Medications Current Outpatient Medications on File Prior to Visit Medication Sig wheat dextrin (BENEFIBER HEALTHY SHAPE) 5 gram/7.4 gram powd Take 2 teaspoonsful by mouth once daily. potassium chloride 20 mEq/15 mL solution Take 15 mL by mouth twice daily. omeprazole (PRILOSEC) 40 mg capsule Take 1 capsule by mouth once daily. amino acids (AMINO ACID ORAL) Take by mouth. Peptide powder levothyroxine (SYNTHROID) 50 mcg tablet Take 1 tablet by mouth daily before breakfast. atorvastatin (LIPITOR) 40 mg tablet Take 1 tablet by mouth daily at bedtime. For cholesterol. FLUoxetine (PROZAC) 40 mg capsule Take 1 capsule by mouth once daily. mirabegron (MYRBETRIQ) 50 mg Tb24 Take 1 tablet by mouth once daily. cyclobenzaprine (FLEXERIL) 10 mg tablet Take 1 tablet by mouth every 8 hours as needed for muscle spasm (or pain). VITAMIN E ACETATE ORAL Take by mouth. ascorbic acid (VITAMIN C ORAL) Take by mouth. Melatonin 5 mg cap Take 1 capsule by mouth daily at bedtime. aspirin, enteric coated (ADULT LOW DOSE ASPIRIN) 81 mg EC tablet Take 1 tablet by mouth once daily. No current facility-administered medications on file prior to visit. Social History Social History Tobacco Use Smoking status: Former Types: Cigarettes Quit date: 06/13/2016 Years since quittin.2 Smokeless tobacco: Never Tobacco comments: 4 cigarettes per daily Vaping Use Vaping Use: Never used Substance Use Topics Alcohol use: No Review of Symptoms REVIEW OF SYSTEMS GENERAL: No weight loss, malaise or fevers HEENT: Negative for frequent or significant headaches, No changes in hearing or vision, no nose bleeds or other nasal problems NECK: Negative for lumps, goiter and significant neck swelling. Has pain in neck with movement at times. RESPIRATORY: Negative for cough, hemoptysis, wheezing, COPD, increased dyspnea or shortness of breath from base line. CARDIOVASCULAR: Negative for chest pain, increased leg swelling, hypertension, CHF or palpitations GI: No increased diarrhea, No heartburn or reflux symptoms, and no blood. Had a day last week where she vomited up her meds one day. : No history of dysuria, blood MUSCULOSKELETAL: Negative for increased joint pain or swelling, back pain or muscle pain. SKIN: Negative for lesions, rash, and itching PSYCH: Negative for sleep disturbance, mood disorder and recent psychosocial stressors, easily agitated and no on the prozac. HEMATOLOGY/LYMPHOLOGY: Negative for prolonged bleeding, bruising easily or swollen nodes ENDOCRINE: Negative for cold or heat intolerance, polyuria, polydipsia and goiter NEURO: No history of syncope, paralysis, seizures or tremors EXAM: BP 140/74 (BP Site: Right Arm, BP Position: Sitting, BP Cuff Size: Regular Adult) Pulse 72 Resp 16 Ht 151.1 cm (4' 11.5 ) Wt 56.7 kg (125 lb) BMI 24.82 kg/m BP 122/78 Pulse 72 Resp 16 Ht 151.1 cm (4' 11.5 ) Wt 56.7 kg (125 lb) BMI 24.82 kg/m Last 5 Encounter Wt Readings: Date: Wt: 09/20/2022 56.7 kg (125 lb) 09/10/2022 56.7 kg (125 lb) 06/20/2022 53.1 kg (117 lb) 06/04/2022 52.2 kg (115 lb) 03/21/2022 52.6 kg (116 lb) General Appearance: Well appearing, alert, in no acute distress, well-hydrated, well nourished.. Skin: Skin color, texture, turgor normal, no suspicious rashes or lesions. Head: Normocephalic, no masses, lesions, tenderness or abnormalities. Eyes: Anicteric sclera. Pupils are equally round and reactive to light. Extraocular movements are intact. . Ears: External ears, TM's normal, canals clear. Neck: Supple, no adenopathy; thyroid symmetric, normal size, no bruits. Lungs: Lungs clear to auscultation. No wheezing, rhonchi, rales.. Heart: RRR without murmur, gallop, or rubs. No ectopy. Abdomen: Normal abdominal exam, Abdomen soft, non-tender. Bowel sounds normal. No masses, organomegaly. Extremities: No deformities, edema, skin discoloration, clubbing or cyanosis. Good capillary refill. . Musculoskeletal: Muscular strength intact, No joint swelling, deformity, or tenderness. Peripheral Pulses: Normal. Neurologic: Gait normal. Reflexes normal and symmetric. Sensation to light touch and crainal nerves 2-12 intact.. Health Maintenance List DILATED RETINAL EXAM Never done COVID-19 VACCINE(4 - Booster for Moderna series) due on 12/05/2021 BP CONTROLLED (<130/80) due on 04/25/2022 SHINGRIX VACCINE(2 of 2) due on 08/07/2022 DIABETIC FOOT EXAM due on 09/18/2022 HBA1C due on 03/14/2023 ANNUAL PCP TEAM CHRONIC DISEASE VISIT due on 06/20/2023 URINE ALBUMIN:CREATININE RATIO due on 09/13/2023 LDL CHOLESTEROL due on 09/13/2023 DTAP,TDAP,TD(3 - Td or Tdap) due on 05/29/2028 BONE DENSITY Completed INFLUENZA Completed ADVANCE DIRECTIVE DISCUSSION Completed PNEUMOCOCCAL: 65+ Completed HEPATITIS C SCREENING Discontinued Data reviewed Component Latest Ref Rng & Units 12/05/2021 09/13/2022 WBC 3.70 - 11.00 k/uL 6.65 6.68 RBC 3.90 - 5.20 m/uL 4.28 4.11 Hemoglobin 11.5 - 15.5 g/dL 12.6 12.3 Hematocrit 36.0 - 46.0 % 38.9 38.4 MCV 80.0 - 100.0 fL 90.9 93.4 MCH 26.0 - 34.0 pg 29.4 29.9 MCHC 30.5 - 36.0 g/dL 32.4 32.0 RDW-CV 11.5 - 15.0 % 13.1 12.8 Platelet Count 150 - 400 k/uL 260 228 MPV 9.0 - 12.7 fL 9.7 10.1 Neut% % 62.4 64.0 Abs Neut (ANC) 1.45 - 7.50 k/uL 4.16 4.27 Lymph% % 26.8 24.0 Abs Lymph 1.00 - 4.00 k/uL 1.78 1.60 Hooker% % 8.6 9.7 Abs Hooker <0.87 k/uL 0.57 0.65 Eosin% % 0.8 1.2 Abs Eosin <0.46 k/uL 0.05 0.08 Baso% % 0.9 0.7 Abs Baso <0.11 k/uL 0.06 0.05 Immature Gran % % 0.5 0.4 IMMATURE GRANS (ABS) <0.10 k/uL 0.03 0.03 NRBC /100 WBC 0.0 0.0 Absolute nRBC <0.01 k/uL <0.01 <0.01 DTYPE Auto Auto Protein, Total 6.3 - 8.0 g/dL 6.8 6.6 Albumin 3.9 - 4.9 g/dL 4.5 4.3 Calcium 8.5 - 10.2 mg/dL 9.7 9.4 Bilirubin, Total 0.2 - 1.3 mg/dL 0.9 0.6 Alkaline Phosphatase 34 - 123 U/L 104 130 (H) AST 13 - 35 U/L 21 30 ALT 7 - 38 U/L 10 15 Glucose 74 - 99 mg/dL 131 (H) 118 (H) BUN 7 - 21 mg/dL 10 8 Creatinine 0.58 - 0.96 mg/dL 1.06 (H) 1.06 (H) Sodium 136 - 144 mmol/L 139 143 Potassium 3.7 - 5.1 mmol/L 4.7 4.3 Chloride 97 - 105 mmol/L 101 108 (H) CO2 22 - 30 mmol/L 28 20 (L) Anion Gap 9 - 18 mmol/L 10 15 eGFR >=60 mL/min/1.73m 54 (L) 54 (L) Color Yellow Yellow Light Yellow Clarity Clear Clear Clear Glucose, Urine Negative Negative Negative Bilirubin, Urine Negative Negative Negative Ketones, Urine Negative Negative Negative Specific [place], Ur 1.005 - 1.030 1.013 1.016 Hemoglobin/Blood,Ur Negative Negative Trace (A) pH, Urine 5.0 - 8.0 7.0 6.0 Protein, Urine Negative 1+ (A) Trace (A) Urobilinogen Negative Negative Negative Nitrites Negative Negative Negative Leukest Negative Negative Negative WBC, Urine 0-5 /HPF 0-5 /HPF 0-5 /HPF RBC, Urine 0-3 /HPF 0-3 /HPF 0-3 /HPF Epithelial Cells /HPF Few Hyaline Cast 0 /LPF 4-10 /LPF (A) >10 /LPF (A) Total Cholesterol, Nonfasting <200 mg/dL 150 117 Triglycerides, Nonfasting <150 mg/dL 109 90 HDL Cholesterol, Nonfasting >39 mg/dL 52 37 (L) LDL Cholesterol, Nonfasting <100 mg/dL 76 62 Non HDL Cholesterol, Nonfasting <130 mg/dL 98 80 VLDL Cholesterol, Nonfasting <30 mg/dL 22 18 Total Chol/HDL Ratio, Nonfasting <5.10 mg/dL 2.88 3.16 LDL/HDL Ratio, Nonfasting <2.54 mg/dL 1.46 1.68 Creatinine, Ur Random (UCRR) 20.0 - 300.0 mg/dL 173.3 209.0 Albumin, Urine Random mg/L 18.2 <12.0 Albumin/Creat Ratio <30 mg/g 11 <6 Hemoglobin A1C 4.3 - 5.6 % 5.8 (H) 6.1 (H) Estimated Average Glucose mg/dL 120 128 TSH 0.270 - 4.200 mIU/L 0.671 0.320 HCV RNA by PCR HCV RNA not detected by PCR. HCV RNA not detected by PCR. Hep B Surface Ag Negative Negative Hep A Ab, IgM Negative Negative Hep B Core Ab, IgM Negative Negative Bilirubin, Conjug <0.2 mg/dL <0.2 A/P ASSESSMENT/PLAN: 1. Medicare annual wellness visit, subsequent - ICD9: V70.0, ICD10: Z00.00 (primary diagnosis) - Counseled on healthy diet and regular exercise - Calcium intake with supplements or by diet of 1000 mg/day for under 50, 0065-6719 mg/day for 50+ - Patient was counseled [id number] by myself (the billing provider) for the following immunizations and vaccine components, including side effects: COVID-19. Patient consents for immunization and understands risks and benefits. A VIS sheet on each immunization was given to the patient. - Follow up for annual exam in one year 2. Type 2 diabetes mellitus with stage 3a chronic kidney disease, without long-term current use of insulin (HCC) - ICD9: 250.40, 585.3, ICD10: E11.22, N18.31 Controlled. - Continue diet controlled - Encouraged regular aerobic exercise and weight loss - BP goal of <130/80 - LDL goal of <100 3. Essential hypertension - ICD9: 401.9, ICD10: I10 - good control - Continue current medication(s) - Recommended regular aerobic exercise. - Recommend home blood pressure monitoring, to bring results in on next visit - Goal of BP <130/80 4. Mixed hyperlipidemia - ICD9: 272.2, ICD10: E78.2 - good control - Encouraged following a low fat, low cholesterol diet. - Discussed the benefits of regular aerobic exercise and weight loss. - Encouraged following a low carbohydrate, healthy oil intake diet. - Continue current therapy. 5. Hypothyroidism (acquired) - ICD9: 244.9, ICD10: E03.9 - Instructed patient on importance of taking on an empty stomach either first thing in the morning or at bedtime. - continue current dose of Synthroid 6. Moderate aortic insufficiency - ICD9: 424.1, ICD10: I35.1 - clinically stable cont f/u with cardio 7. Bilateral carotid artery stenosis - ICD9: 433.10, 433.30, ICD10: I65.23 Check - US CAROTID ARTERIES [facility] 8. Stage 3a chronic kidney disease (HCC) - ICD9: 585.3, ICD10: N18.31 - stable no changes. 9. Recurrent major depressive disorder, in remission (HCC) - ICD9: 296.35, ICD10: F33.40 - will put back on Prozac 40 mg a day 10. Agitation - ICD9: 307.9, ICD10: R45.1 - as per #9 11. Essential tremor - ICD9: 333.1, ICD10: G25.0 - stable no issues 12. Lymphocytic colitis - ICD9: 558.9, ICD10: K52.832 - management per Gastro 13. Encounter for immunization - ICD9: V03.89, ICD10: Z23 - [employer] COVID-19 BIVALENT BOOSTER VACCINE, AGE 12+ YR: given Requested Prescriptions Signed Prescriptions Disp Refills omeprazole (PRILOSEC) 40 mg capsule 90 capsule 3 Sig: Take 1 capsule by mouth once daily. levothyroxine (SYNTHROID) 50 mcg tablet 90 tablet 1 Sig: Take 1 tablet by mouth daily before breakfast. atorvastatin (LIPITOR) 40 mg tablet 90 tablet 1 Sig: Take 1 tablet by mouth daily at bedtime. For cholesterol. cyclobenzaprine (FLEXERIL) 10 mg tablet 30 tablet 0 Sig: Take 1 tablet by mouth every 8 hours as needed for muscle spasm (or pain). FLUoxetine (PROZAC) 40 mg capsule 30 capsule 5 Sig: Take 1 capsule by mouth once daily. F/u 6 months routine check BMP, A1c and Lipid prior. I spent a total of 40 minutes on the date of the service which included preparing to see the patient, [id number] patient care, completing clinical documentation, performing a medically appropriate examination, counseling and educating the patient/family/caregiver and ordering medications, tests, or procedures. Kurt Saravia MD documented in this encounter [facility] 09-20-2022 Evaluation note Diagnosis Medicare annual wellness visit, subsequent- Primary Routine general medical examination at a [facility] care facility Type 2 diabetes mellitus with stage 3a chronic kidney disease, without long-term current use of insulin (HCC) Essential hypertension Unspecified essential hypertension Mixed hyperlipidemia Hypothyroidism (acquired) Unspecified hypothyroidism Moderate aortic insufficiency Aortic valve disorders Bilateral carotid artery stenosis Occlusion and stenosis of carotid artery without mention of cerebral infarction Stage 3a chronic kidney disease (HCC) Recurrent major depressive disorder, in remission (HCC) Agitation Other and unspecified special symptom or syndrome, not elsewhere classified Essential tremor Essential and other specified forms of tremor Lymphocytic colitis Other and unspecified noninfectious gastroenteritis and colitis Encounter for immunization Need for other specified prophylactic vaccination against single bacterial disease documented in this encounter [facility]12-05-2022 History and physical note* Karlos Hill MD - 09/10/2022 10:30 AM EST FOLLOW UP OFFICE VISIT REASONS FOR VISIT: Lymphocytic colitis PATIENT SUMMARY: Edison Albarran is a 77 year old female with a history of hypothyroidism, moderate AR, DMT2 and depression who presents to the GI clinic for follow up of lymphocytic colitis. She was initially seen in the GI clinic in 05/2020 for diarrhea with nocturnal stools, intermittent fecal incontinence and unintentional weight loss (25+ lbs) x 5-6 months. Random colon biopsies during colonoscopy in 04/2020 revealed lymphocytic colitis. She was prescribed budesonide, which caused significant constipation but her colitis symptoms remained in control off budesonide until they recurred in 05/2022. At this time, she was still taking a baby aspirin and Prozac. She was also living at home with her son, who smokes around her. Another course of budesonide was prescribed at a lower dose given constipating side effects. INTERVAL HISTORY: She stopped budesonide after 1 month at 6 mg/day due to concerns about weight gain and increased appetite. She feels like she gained 30 lbs, but chart review shows 10 lb weight gain since starting budesonide. Since putting on this extra weight, she has had some musculoskeletal issues (L-sided sciatica and back pain). She denied constipation while on steroids and her bowel habits improved. After stopping budesonide, irregular bowel habits have recurred on a milder scale. Three days of the week, she has diarrhea, characterized by 5 loose/watery BMs/day with urgency. She denies GI bleeding. Other days, she may have 1 formed to semi-formed stool once daily or once every 2 days. Stress noticeably impacts her tendency to have diarrhea. She is still taking a daily baby aspirin, but no additional NSAIDs. She isn't sure if she's taking Prozac, but this is an active medication on her list. She was recently prescribed omeprazole 40 mg/day after an episode of pill dysphagia. Her potassium pill was stuck at the level of the sternal notch and caused a burning sensation. She has not had issues with pills getting stuck since, but struggles with chronic dysphagia felt to be related to poorly-fitting dentures. Past Clinical Work-up: CT abd/pel w/IV cont: 05/10/21: for abdominal pain Stable hypodensity within left hepatic lobe. The gallbladder, adrenal glands, kidneys, spleen, and pancreas are unremarkable. The mesenteric vessels, splenic vein, and portal veins are patent. The bowel is nonobstructed. IMPRESSION: No posttraumatic findings within the chest, abdomen, or pelvis. Colon: 04/21/20 Dr. Nunez: Normal colon. Path: Colon random bx: fragments of benign colonic mucosa with a mild increase in intraepithelial lymphocytes and very mild acute nonspecific colitis. Comment: The lamina propria is somewhat expanded by chronic and very mild acute inflammation with rare cryptitis. EUS: 09/24/01: Dr. Tin Wall: The lesion was visulaized again endoscopically. It appeared umblicated and raised submucosal lesion. Covered with normal mucosa. No ulceration seen. Scanning of this area revealed the folloings: 1. Size 16.7 x 7.8 mm. 2. Originating from the muscularis propria. 3. Central umlication was seen in the middle of this mass. 4. The mass did not expand beyond the outer layer of the muscularis. Bxs taken from the lesion at the end of procedure. Patient tolerated procedure well. Path: 09/24/01: Gastric submucosal lesion: Fragment of gastric mucosa showing chronic gastritis with focal active cryptitis and smooth muscle hyperplasia suggestive of chronic atrophic gastritis. ALLERGIES Allergen Reactions Bactrim [Sulfametho* Other: See Comments Unknown. Cephalexin Other: See Comments Unknown. Citalopram Swelling Throat swelled Cymbalta [Duloxetin* Other: See Comments Made her feel groggy. PAST MEDICAL HISTORY Diagnosis Date Advance directive discussed with patient 03/21/202203/2022 Agitation 02/02/2020 Bilateral carotid artery disease (HCC) 12/20/2015 US 12/2015: 20-40% on Rt and 40-60% on left. US 01/2017 unchanged. Chronic bilateral low back pain with sciatica 12/26/2016 Constipation 07/09/2018 after starting lipitor Decreased sensation of lower extremity 01/04/2016 Essential hypertension 2015 Essential tremor 09/18/2021 Ex-smoker 2015 1/2-1 PPD since early 50s, quit January 2018 Hematuria 12/14/2015 Urology w/u neg. Hypothyroidism (acquired) 2015 Living will on file 03/21/2022 DPA; Casey (son) Lymphocytic colitis 05/16/2020 Possibly Zoloft related. Mediastinal lymphadenopathy 08/04/2018 Prominent Mediastinal lymphadenopathy noted on CT 08/01/18. CT 01/05/2019 no mediastinal lymphadenopathy Mixed hyperlipidemia 2015 Moderate aortic insufficiency 01/19/[address] Cordoba Osteoporosis 05/26/2015 Pain in both hands 12/26/2016 Pain in joint, multiple sites 12/07/2015 On neurontin Recurrent major depressive disorder, in remission (HCC) 07/01/2018 Spinal stenosis, lumbar region, with neurogenic claudication 01/23/2016 Type 2 diabetes mellitus without complication, without long-term current use of insulin (HCC) 12/07/2015 Urgency of urination 06/13/2016 PAST SURGICAL HISTORY Procedure Laterality Date 2D ECHO (EXEP) 09/2020 EF=64%, Mild Noe dysf and La enlargment, 2+ AR CARPAL TUNNEL RIGHT WRIST COLONOSCOPY 2011 repeat 10 yrs COLONOSCOPY FLX DX W/COLLJ SPEC WHEN PFRMD 04/21/2020 Colonoscopy CORRECTION OF BUNION Left ESOPHAGOGASTRODUODENOSCOPY TRANSORAL DIAGNOSTIC 04/21/2020 EGD FECAL OCCULT BLOOD TEST 01/01/2018 negative HYSTERECTOMY HX 1970 one ovary removed LEXISCAN STRESS TEST 11/21/2020 negative PAST SURGICAL HISTORY OF 1971 appendectomy PAST SURGICAL HISTORY OF 1987 breast lump, benign STRESS TEST 07/09/2016 WNL TUMOR REMOVAL (SPECIFY LOCATION) HX 2001 stomach FAMILY HISTORY Problem Relation Age of Onset Breast Cancer Mother over 50 Hypertension Mother Lipids Mother Osteoporosis Mother Thyroid Mother Cancer Father stomach Cancer Brother lung Alzheimer's Disease Brother dementia Diabetes Brother Social History Tobacco Use Smoking status: Former Types: Cigarettes Quit date: 06/13/2016 Years since quittin.2 Smokeless tobacco: Never Tobacco comments: 4 cigarettes per daily Vaping Use Vaping Use: Never used Substance Use Topics Alcohol use: No Current Outpatient Medications Medication Sig potassium chloride 20 mEq/15 mL solution Take 15 mL by mouth twice daily. omeprazole (PRILOSEC) 40 mg capsule Take 1 capsule by mouth once daily. amino acids (AMINO ACID ORAL) Take by mouth. Peptide powder levothyroxine (SYNTHROID) 50 mcg tablet Take 1 tablet by mouth daily before breakfast. atorvastatin (LIPITOR) 40 mg tablet Take 1 tablet by mouth daily at bedtime. For cholesterol. FLUoxetine (PROZAC) 40 mg capsule Take 1 capsule by mouth once daily. mirabegron (MYRBETRIQ) 50 mg Tb24 Take 1 tablet by mouth once daily. cyclobenzaprine (FLEXERIL) 10 mg tablet Take 1 tablet by mouth every 8 hours as needed for muscle spasm (or pain). VITAMIN E ACETATE ORAL Take by mouth. ascorbic acid (VITAMIN C ORAL) Take by mouth. Melatonin 5 mg cap Take 1 capsule by mouth daily at bedtime. aspirin, enteric coated (ADULT LOW DOSE ASPIRIN) 81 mg EC tablet Take 1 tablet by mouth once daily. No current facility-administered medications for this visit. I have confirmed and edited, if necessary, the PFSH obtained by others. REVIEW OF SYSTEMS CONSTITUTIONAL: +steroid-induced weight gain (10 lbs); Negative for unintentional weight loss, malaise or fevers HEENT: Negative for frequent/significant headaches, changes in hearing/vision, nose bleeds or othernasal problems RESPIRATORY: Negative for cough, hemoptysis, wheezing or dyspnea CARDIOVASCULAR: Negative for chest pain, palpitations, syncope or lightheadedness GI: See HPI : Negative for dysuria, polyuria, incontinence or hematuria MUSCULOSKELETAL: +arthralgias; +L sciatica pain INTEGUMENTARY/SKIN: Negative for rash or skin lesion HEMATOLOGY/LYMPHOLOGY: Negative for prolonged bleeding, easy bruising or swollen nodes ENDOCRINE: Negative for cold/heat intolerance, polydipsia or goiter NEURO: Negative for encephalopathy, tremor or gait abnormality PSYCH: +chronic anxiety; Negative for new changes in mood or affect PHYSICAL EXAM: BP 145/52 (BP Site: Right Arm, BP Position: Sitting, BP Cuff Size: Regular Adult) Pulse 60 Resp16 Wt 56.7 kg (125 lb) BMI 25.25 kg/m Gen: Comfortable in NAD Head: Normocephalic, atraumatic Skin: No jaundice, rashes or skin lesions Eyes: Sclera anicteric, conjunctiva pink Neck: No mass or goiter Heart: No sternal heave Lungs: Non-labored breathing Abd: Soft and non-distended Ext: No lower extremity edema, clubbing or cyanosis Neuro: Alert and oriented, no tremor or gross focal motor deficits Psych: Congruent mood and affect, appropriate insight and judgement ASSESSMENT/PLAN: Edison Albarran is a 77 year old female with a history of hypothyroidism, moderate AR, DMT2 and depression who presents to the GI clinic for follow up of lymphocytic colitis. 1. Lymphocytic colitis She is currently having intermittent diarrhea with fecal urgency. Although budesonide has been veryeffective at controlling her colitis symptoms, she has been unable to completely tolerate it due toconstipation and weight gain. Risk factors for treatment-refractory microscopic colitis include medication triggers (SSRI, aspirin, PPI) and secondhand smoke exposure. Current diarrhea is intermittent and largely influenced by stress. Overlapping IBS-D is a consideration. --Start Benefiber 2-3 tsp/day --Drink at least 64 oz water every day --Minimize non-critical NSAID use. Do not stop aspirin unless instructed to do so. --Minimize/avoid exposure to secondhand smoke --If metamucil does not help regulate bowel habits, a trial of Questran will be considered 2. Pill dysphagia Patient has chronic intermittent dysphagia due to poorly-fitting dentures, but this episode of pilldysphagia seemed severe. Upper esophageal stricture should be ruled out. --Esophagram --Continue omeprazole 40 mg/day for now Timing of future follow up will depend on symptom update in 3 weeks Karlos Hill MD Associate Staff, Department of Gastroenterology and Hepatology [facility] [place] [facility] Instructions* Patient Instructions* Karlos Hill MD - 09/10/2022 10:04 AM EST Thank you for seeing me in clinic today. As we discussed, my recommendations are as follows: Begin using 2 teaspoons of Benefiber in 12 oz of water every day. Stir until fiber has dissolved. If fiber is well-tolerated but does not completely regulate bowel movements after 1 week, add anotherteaspoon of fiber for a total of 3 teaspoons per day. Fiber works best if you are hydrated. Be sureto drink at least 64 oz of water every day. I will call you in 3 weeks to follow up on your symptoms. If things are no better, let's proceed with a trial of cholestyramine (Questran). 3. Please schedule an esophagram to better evaluate your swallowing trouble. Timing of future follow up will depend on your update in 3 weeks If you have any questions about the above treatment plan, please do not hesitate to send me a [employer] message or call the [facility] at [phone] to route me amessage. [facility] Miscellaneous Notes* Telephone Encounter - Racquel Khalil Cma - 06/22/2022 2:13 PM EDT Patient notified and verbalized understanding Racquel Khalil Cma * Telephone Encounter - Kurt Saravia MD - 06/22/2022 1:33 PM EDT Let patient know her pancreatic functions were normal. Her liver functions showed one value to be slightly elevated but not high enough to be indicative of something concerning. I want to repeat this with an additional lab in a month. Order placed. documented in this encounterG[facility] History of Present illness Narrative* Kurt Saravia MD - 06/20/2022 7:40 PM EDT Chief Complaint Patient presents with: Cough HPI Edison Albarran is a 76 year old female who presents here today for Acute onset of cough. Patient indicated a few weeks ago she tried to swallow a potassium pill and it got stuck in her throat felt like it was burning and since she has had the cough. Has not noted any sensation like foods get stuck. Has had other pills get stuck at times. The potassium pill seems to be the hardest to swallow. Past medical history, appointments, medications, allergies reviewed. Previous Medical History PAST MEDICAL HISTORY Diagnosis Date Advance directive discussed with patient 03/21/202203/2022 Agitation 02/02/2020 Bilateral carotid artery disease (HCC) 12/20/2015 US 12/2015: 20-40% on Rt and 40-60% on left. US 01/2017 unchanged. Chronic bilateral low back pain with sciatica 12/26/2016 Constipation 07/09/2018 after starting lipitor Decreased sensation of lower extremity 01/04/2016 Essential hypertension 2015 Essential tremor 09/18/2021 Ex-smoker 2015 1/2-1 PPD since early 50s, quit January 2018 Hematuria 12/14/2015 Urology w/u neg. Hypothyroidism (acquired) 2015 Living will on file 03/21/2022 DPA; Casey (son) Lymphocytic colitis 05/16/2020 Possibly Zoloft related. Mediastinal lymphadenopathy 08/04/2018 Prominent Mediastinal lymphadenopathy noted on CT 08/01/18. CT 01/05/2019 no mediastinal lymphadenopathy Mixed hyperlipidemia 2015 Moderate aortic insufficiency 01/19/[address] Cordoba Osteoporosis 05/26/2015 Pain in both hands 12/26/2016 Pain in joint, multiple sites 12/07/2015 On neurontin Recurrent major depressive disorder, in remission (HCC) 07/01/2018 Spinal stenosis, lumbar region, with neurogenic claudication 01/23/2016 Type 2 diabetes mellitus without complication, without long-term current use of insulin ([facility]) 12/07/2015 Urgency of urination 06/13/2016 Previous Surgical History PAST SURGICAL HISTORY Procedure Laterality Date 2D ECHO (EXEP) 09/2020 EF=64%, Mild Noe dysf and La enlargment, 2+ AR CARPAL TUNNEL RIGHT WRIST COLONOSCOPY 2010 repeat 10 yrs COLONOSCOPY FLX DX W/COLLJ SPEC WHEN PFRMD 04/21/2020 Colonoscopy CORRECTION OF BUNION Left ESOPHAGOGASTRODUODENOSCOPY TRANSORAL DIAGNOSTIC 04/21/2020 EGD FECAL OCCULT BLOOD TEST 01/01/2018 negative HYSTERECTOMY HX 1970 one ovary removed LEXISCAN STRESS TEST 11/21/2020 negative PAST SURGICAL HISTORY OF 1971 appendectomy PAST SURGICAL HISTORY OF 1987 breast lump, benign STRESS TEST 07/09/2016 WNL TUMOR REMOVAL (SPECIFY LOCATION) HX 2001 stomach Family History FAMILY HISTORY Problem Relation Age of Onset Breast Cancer Mother over 50 Hypertension Mother Lipids Mother Osteoporosis Mother Thyroid Mother Cancer Father stomach Cancer Brother lung Alzheimer's Disease Brother dementia Diabetes Brother Patient Allergies ALLERGIES Allergen Reactions Bactrim [Sulfametho* Other: See Comments Unknown. Cephalexin Other: See Comments Unknown. Citalopram Swelling Throat swelled Cymbalta [Duloxetin* Other: See Comments Made her feel groggy. Current Medications Current Outpatient Medications on File Prior to Visit Medication Sig budesonide, enteric coated (ENTOCORT EC) 3 mg 24 hr capsule Take 2 capsules by mouth once daily for60 days, THEN 1 capsule once daily. potassium chloride 20 mEq TbER Take 1 tablet by mouth twice daily. amino acids (AMINO ACID ORAL) Take by mouth. Peptide powder levothyroxine (SYNTHROID) 50 mcg tablet Take 1 tablet by mouth daily before breakfast. atorvastatin (LIPITOR) 40 mg tablet Take 1 tablet by mouth daily at bedtime. For cholesterol. FLUoxetine (PROZAC) 40 mg capsule Take 1 capsule by mouth once daily. mirabegron (MYRBETRIQ) 50 mg Tb24 Take 1 tablet by mouth once daily. cyclobenzaprine (FLEXERIL) 10 mg tablet Take 1 tablet by mouth every 8 hours as needed for muscle spasm (or pain). VITAMIN E ACETATE ORAL Take by mouth. ascorbic acid (VITAMIN C ORAL) Take by mouth. Melatonin 5 mg cap Take 1 capsule by mouth daily at bedtime. aspirin, enteric coated (ADULT LOW DOSE ASPIRIN) 81 mg EC tablet Take 1 tablet by mouth once daily. No current facility-administered medications on file prior to visit. Social History Social History Tobacco Use Smoking status: Former Types: Cigarettes Quit date: 06/13/2016 Years since quittin.0 Smokeless tobacco: Never Tobacco comments: 4 cigarettes per daily Vaping Use Vaping Use: Never used Substance Use Topics Alcohol use: No Review of Symptoms REVIEW OF SYSTEMS See HPI EXAM: BP 132/80 (BP Site: Left Arm, BP Position: Sitting, BP Cuff Size: Regular Adult) Pulse 63 Temp 36.8 C (98.2 F) (Left Tympanic) Wt 53.1 kg (117 lb) SpO2 98% BMI 23.63 kg/m General Appearance: Well appearing, alert, in no acute distress, well-hydrated, well nourished.. Lungs: Lungs clear to auscultation. No wheezing, rhonchi, rales.. Heart: RRR without murmur, gallop, or rubs. No ectopy. Abdomen: Abdomen soft, mild epigastric tenderness without rebound pain. Bowel sounds normal. No masses, organomegaly. Health Maintenance List DILATED RETINAL EXAM Never done COVID-19 VACCINE(4 - Booster for Moderna series) due on 02/07/2022 BP CONTROLLED (<130/80) due on 04/25/2022 HBA1C due on 06/07/2022 SHINGRIX VACCINE(2 of 2) due on 08/07/2022 DIABETIC FOOT EXAM due on 09/18/2022 URINE ALBUMIN:CREATININE RATIO due on 12/05/2022 LDL CHOLESTEROL due on 12/05/2022 ANNUAL PCP TEAM CHRONIC DISEASE VISIT due on 03/21/2023 DTAP,TDAP,TD(3 - Td or Tdap) due on 05/29/2028 BONE DENSITY Completed INFLUENZA Completed ADVANCE DIRECTIVE DISCUSSION Completed PNEUMOCOCCAL: 65+ Completed HEPATITIS C SCREENING Discontinued Data reviewed A/P ASSESSMENT/PLAN: 1. Epigastric pain - ICD9: 789.06, ICD10: R10.13 (primary diagnosis) - Begin treatment with Prilosec 40 mg QD Check - HEPATIC FUNCTION PNL - LIPASE BLD - AMYLASE BLD - check Upper GI 2. Esophageal dysphagia - ICD9: 787.29, ICD10: R13.19 - check Upper GI. Requested Prescriptions Signed Prescriptions Disp Refills potassium chloride 20 mEq/15 mL solution 900 mL 11 Sig: Take 15 mL by mouth twice daily. omeprazole (PRILOSEC) 40 mg capsule 30 capsule 3 Sig: Take 1 capsule by mouth once daily. Keep f/u in Dec sooner if not improving. Kurt Saravia MD documented in this encounterG[facility]09-01-2022 Miscellaneous Notes* Telephone Encounter - Marty Barkley LPN - 06/07/2022 9:53 AM EDT Left message of same on son's vm. Marty Barkley LPN * Telephone Encounter - Kurt Saravia MD - 06/06/2022 8:45 PM EDT Let son know patient not do for pneumonia booster till 2022. * Telephone Encounter - Rashmi Lowery RN - 06/06/2022 4:51 PM EDT Patient's son asking if pt due for any further pneumonia vaccinations at this time. Please advise adonay Peña at [phone]. Thank you. documented in this encounterGlen[facility]08-29-2022 Instructions* Patient Instructions* Karlos Hill MD - 06/04/2022 10:01 AM EDT Thank you for seeing me in clinic today. It was very nice to see you again! As we discussed, my recommendations are as follows: Please start taking budesonide 6 mg (2 tablets) every day for 2 months, then take 3 mg (1 tablet) for 1 month and then stop. Please call the office if you have any concerns about this medication not working after taking it for 1 month. Avoid/minimize medications like ibuprofen (Motrin, Advil), naproxen (Aleve) and meloxicam (Mobic) since these can worsen acid reflux. You should not stop aspirin unless instructed to by your primary care provider. You should ask your son to smoke outside of home if possible since secondhand exposure can make colitis harder to treat. Only if you develop significant constipation after using the steroids, you can start using 2 teaspoons of soluble fiber (e.g. Metamucil, Benefiber or Citrucel) in 12 oz of water every day. Stir untilfiber has dissolved. If fiber is well- tolerated but does not completely regulate bowel movements after 1 week, add another teaspoon of fiber for a total of 3 teaspoons per day. Fiber only works if you are hydrated. Be sure to drink at least 64 oz of water every day. Only if the fiber doesn't work after 2-3 weeks, stop this ane use miralax 17 grams (1 capful) everyday. Pour this powder into an 8-12 oz of water. Stir until completely dissolved and drink the entire glass. Miralax is available over the counter at your local drug store. Please make a follow up visit in 3 months If you have any questions about the above treatment plan, please do not hesitate to send me a [employer] message or call the [facility] at [phone] to route me amessage. documented in this encounterGlen[facility] Hospital08-29-2022 History and physical note * Karlos Hill MD - 06/04/2022 9:30 AM EDT FOLLOW UP OFFICE VISIT REASON FOR VISIT: Lymphocytic colitis PATIENT SUMMARY: Edison Albarran is a 76 year old female with a history of hypothyroidism, moderate AR, DMT2 and depression who presents to the GI clinic for follow up of lymphocytic colitis. Initially seen in GI clinic in 05/2020 for diarrhea with nocturnal stools, occasional fecal incontinence and unintentional weight loss (25+ lbs) x 5-6 months. Random colon biopsies during colonoscopy in 04/2020 revealed lymphocytic colitis. Budesonide taper started. She was also encouraged to avoid non-critical NSAIDs (Voltaren). SSRI was switched to Wellbutrin. Last seen in the GI clinic in 08/2020 for follow up. She was averaging 1 BM every day to every 2-3 days with 1 week left of budesonide. INTERVAL HISTORY: Since her last visit, loose/watery stools have recurred. She has some urgency, lower abdominal cramping (R > L), gas and nocturnal BMs too. She also has issues with nocturia and these may be driving her nighttime awakenings more than stooling. She denies GI bleeding. Since taking a nutritional supplement ( Peptides ), she has gained 15 lbs. She takes a baby aspirin every day, but no additional NSAIDs. She lives with her two sons, one of whom smokes around her. Wellbutrin was switched to Prozac due to side effects (memory impairment, hallucinations). She does not use OTC PPIs. She is having difficulty with swallowing since her lower dentures do not fit well. She cannot tolerate meats. No reported food impactions. Past Clinical Work-up: CT abd/pel w/IV cont: 05/10/21: Stable hypodensity within left hepatic lobe. The gallbladder, adrenal glands, kidneys, spleen, and pancreas are unremarkable. The mesenteric vessels, splenic vein, and portal veins are patent. The bowel is nonobstructed. Colon: 04/21/20 Dr. Nunez: Normal colon. Path: Colon random bx: fragments of benign colonic mucosa with a mild increaes in intraepithelial lymphocytes and very mild acute nonspecific colitis Comment: The lamina propria is somewhat expanded by chronic and very mild acute inflammation with rare cryptitis. Component Latest Ref Rng & Units 11/28/2020 05/10/2021 12/05/2021 WBC 3.70 - 11.00 k/uL 7.63 9.79 6.65 RBC 3.90 - 5.20 m/uL 4.14 4.20 4.28 Hemoglobin 11.5 - 15.5 g/dL 12.5 12.4 12.6 Hematocrit 36.0 - 46.0 % 36.8 38.0 38.9 MCV 80.0 - 100.0 fL 88.9 90.5 90.9 MCH 26.0 - 34.0 pg 30.2 29.5 29.4 MCHC 30.5 - 36.0 g/dL 34.0 32.6 32.4 RDW-CV 11.5 - 15.0 % 12.9 13.4 13.1 Platelet Count 150 - 400 k/uL 218 282 260 MPV 9.0 - 12.7 fL 10.0 8.5 (L) 9.7 Component Latest Ref Rng & Units 04/25/2021 05/10/2021 12/05/2021 Protein, Total 6.3 - 8.0 g/dL 6.2 (L) 7.0 6.8 Albumin 3.9 - 4.9 g/dL 3.9 4.4 4.5 Calcium 8.5 - 10.2 mg/dL 9.2 9.6 9.7 Bilirubin, Total 0.2 - 1.3 mg/dL 0.4 0.4 0.9 Alkaline Phosphatase 34 - 123 U/L 87 111 104 AST 13 - 35 U/L 32 20 21 ALT 7 - 38 U/L 24 12 10 Glucose 74 - 99 mg/dL 70 (L) 85 131 (H) BUN 7 - 21 mg/dL 10 18 10 Creatinine 0.58 - 0.96 mg/dL 0.76 0.85 1.06 (H) Sodium 136 - 144 mmol/L 140 136 139 Potassium 3.7 - 5.1 mmol/L 2.9 (L) 3.9 4.7 Chloride 97 - 105 mmol/L 99 100 101 CO2 22 - 30 mmol/L 31 (H) 28 28 Anion Gap 9 - 18 mmol/L 10 8 (L) 10 eGFR >=60 mL/min/1.73m 54 (L) EUS: 09/24/01: Dr. Tin Wall: The lesion was visulaized again endoscopically. It appeared umblicated and raised submucosal lesion. Covered with normal mucosa. No ulceration seen. Scanning of this area revealed the folloings: 1. Size 16.7 x 7.8 mm. 2. Originating from the muscularis propria. 3. Central umlication was seen in the middle of this mass. 4. The mass did not expand beyond the outer layer of the muscularis. Bxs taken from the lesion at the end of procedure. Patient tolerated procedure well. Path: 09/24/01: Gastric submucosal lesion: Fragment of gastric mucosa showing chronic gastritis with focal active cryptitis and smooth muscle hyperplasia suggestive of chronic atrophic gastritis. ALLERGIES Allergen Reactions Bactrim [Sulfametho* Other: See Comments Unknown. Cephalexin Other: See Comments Unknown. Citalopram Swelling Throat swelled Cymbalta [Duloxetin* Other: See Comments Made her feel groggy. PAST MEDICAL HISTORY Diagnosis Date Advance directive discussed with patient 03/21/202203/2022 Agitation 02/02/2020 Bilateral carotid artery disease (HCC) 12/20/2015 US 12/2015: 20-40% on Rt and 40-60% on left. US 01/2017 unchanged. Chronic bilateral low back pain with sciatica 12/26/2016 Constipation 07/09/2018 after starting lipitor Decreased sensation of lower extremity 01/04/2016 Essential hypertension 2015 Essential tremor 09/18/2021 Ex-smoker 2015 1/2-1 PPD since early 50s, quit January 2018 Hematuria 12/14/2015 Urology w/u neg. Hypothyroidism (acquired) 2015 Living will on file 03/21/2022 DPA; Casey (son) Lymphocytic colitis 05/16/2020 Possibly Zoloft related. Mediastinal lymphadenopathy 08/04/2018 Prominent Mediastinal lymphadenopathy noted on CT 08/01/18. CT 01/05/2019 no mediastinal lymphadenopathy Mixed hyperlipidemia 2015 Moderate aortic insufficiency 01/19/[address] Cordoba Osteoporosis 05/26/2015 Pain in both hands 12/26/2016 Pain in joint, multiple sites 12/07/2015 On neurontin Recurrent major depressive disorder, in remission ([facility]) 07/01/2018 Spinal stenosis, lumbar region, with neurogenic claudication 01/23/2016 Type 2 diabetes mellitus without complication, without long-term current use of insulin ([facility]) 12/07/2015 Urgency of urination 06/13/2016 PAST SURGICAL HISTORY Procedure Laterality Date 2D ECHO (EXEP) 09/2020 EF=64%, Mild Noe dysf and La enlargment, 2+ AR CARPAL TUNNEL RIGHT WRIST COLONOSCOPY 2010 repeat 10 yrs COLONOSCOPY FLX DX W/COLLJ SPEC WHEN PFRMD 04/21/2020 Colonoscopy CORRECTION OF BUNION Left ESOPHAGOGASTRODUODENOSCOPY TRANSORAL DIAGNOSTIC 04/21/2020 EGD FECAL OCCULT BLOOD TEST 01/01/2018 negative HYSTERECTOMY HX 1970 one ovary removed LEXISCAN STRESS TEST 11/21/2020 negative PAST SURGICAL HISTORY OF 1972 appendectomy PAST SURGICAL HISTORY OF 1987 breast lump, benign STRESS TEST 07/09/2016 WNL TUMOR REMOVAL (SPECIFY LOCATION) HX 2001 stomach FAMILY HISTORY Problem Relation Age of Onset Breast Cancer Mother over 50 Hypertension Mother Lipids Mother Osteoporosis Mother Thyroid Mother Cancer Father stomach Cancer Brother lung Alzheimer's Disease Brother dementia Diabetes Brother Social History Tobacco Use Smoking status: Former Types: Cigarettes Quit date: 06/13/2016 Years since quittin.9 Smokeless tobacco: Never Tobacco comments: 4 cigarettes per daily Vaping Use Vaping Use: Never used Substance Use Topics Alcohol use: No Current Outpatient Medications Medication Sig potassium chloride 20 mEq TbER Take 1 tablet by mouth twice daily. amino acids (AMINO ACID ORAL) Take by mouth. Peptide powder levothyroxine (SYNTHROID) 50 mcg tablet Take 1 tablet by mouth daily before breakfast. atorvastatin (LIPITOR) 40 mg tablet Take 1 tablet by mouth daily at bedtime. For cholesterol. FLUoxetine (PROZAC) 40 mg capsule Take 1 capsule by mouth once daily. mirabegron (MYRBETRIQ) 50 mg Tb24 Take 1 tablet by mouth once daily. cyclobenzaprine (FLEXERIL) 10 mg tablet Take 1 tablet by mouth every 8 hours as needed for muscle spasm (or pain). VITAMIN E ACETATE ORAL Take by mouth. ascorbic acid (VITAMIN C ORAL) Take by mouth. Melatonin 5 mg cap Take 1 capsule by mouth daily at bedtime. aspirin, enteric coated (ADULT LOW DOSE ASPIRIN) 81 mg EC tablet Take 1 tablet by mouth once daily. No current facility-administered medications for this visit. I have confirmed and edited, if necessary, the PFSH obtained by others. REVIEW OF SYSTEMS CONSTITUTIONAL: Negative for unintentional weight loss, malaise or fevers HEENT: Negative for frequent/significant headaches, changes in hearing/vision, nose bleeds or othernasal problems RESPIRATORY: Negative for cough, hemoptysis, wheezing or dyspnea CARDIOVASCULAR: Negative for chest pain, palpitations, syncope or lightheadedness GI: See HPI : Negative for dysuria, polyuria, incontinence or hematuria MUSCULOSKELETAL: Negative for arthralgia or myalgia INTEGUMENTARY/SKIN: Negative for rash or skin lesion HEMATOLOGY/LYMPHOLOGY: Negative for prolonged bleeding, easy bruising or swollen nodes ENDOCRINE: Negative for cold/heat intolerance, polydipsia or goiter NEURO: Negative for encephalopathy, tremor or gait abnormality PSYCH: Negative for new changes in mood or affect PHYSICAL EXAM: BP 136/72 (BP Site: Right Arm, BP Position: Sitting, BP Cuff Size: Regular Adult) Pulse 61 Resp16 Wt 52.2 kg (115 lb) BMI 23.23 kg/m Gen: Comfortable female in NAD Head: Normocephalic, atraumatic Skin: No jaundice, rashes or skin lesions Eyes: Sclera anicteric, conjunctiva pink Neck: Supple, no palpable lymphadenopathy or goiter Heart: RRR, no murmurs, rubs or gallops Lungs: CTAB, non-labored breathing Abd: Soft, non-distended, non-tender, bowel sounds present, no palpable masses or organomegaly Ext: No lower extremity edema, clubbing or cyanosis. Extremities are warm and well-perfused Neuro: Alert and oriented, no tremor or gross focal motor deficits Psych: Congruent mood and affect, appropriate insight and judgement ASSESSMENT/PLAN: Edison Albarran is a 76 year old female with a history of hypothyroidism, moderate AR, DMT2 and depression who presents to the GI clinic for follow up of lymphocytic colitis, which seems to have recurred since her last visit. 1. Lymphocytic colitis Currently experiencing loose/watery stools, fecal urgency, abdominal cramping and nocturnal stools,consistent with prior active microscopic colitis. She responded to a budesonide taper in the past, but developed significant constipation with this. She may benefit from starting at a lower dose. Risk factors for refractory disease include medications (SSRI, aspirin) and secondhand smoke exposure --Budesonide 6 mg x 2 months > 3 mg x 1 month > then stop --Minimize non-critical NSAID use. Do not stop aspirin unless instructed to do so. --She was advised to talk to her son about smoking outside. --If constipation recurs on budesonide, start a fiber supplement. If this is not effective, take miralax 17 g/day. 2. Dysphagia, oral phase I suspect that this is largely due to poorly-fitting dentures. --Recommend new dentures or at least an evaluation by dental Follow up in 3 months Karlos Hill MD Associate Staff, Department of Gastroenterology and Hepatology [facility] [place] documented in this encounterGlenbeigh Hospital08-01-2022 Miscellaneous Notes* Telephone Encounter - Brenda Sanabria MA - 05/07/2022 11:40 AM EDT Patient has been identified by name and date of : Yes Pending Prescriptions Disp Refills POTASSIUM CHLORIDE ER 20 MEQ TABLET,EXTENDED RELEASE 60 tablet 1 Sig: Take 1 tablet by mouth twice daily. DARCY: No RX INSTRUCTIONS: Patient aware RX will be sent to pharmacy. No need to notify patient. Brenda Sanabria MA John Paul: 03/2022 Nov: 09/2022 Last refill: 02/2022 * Telephone Encounter - Janett Izquierdo LPN - 05/07/2022 10:11 AM EDT Patient has been identified by name and date of : Yes Patient phones for refill(s): Pending Prescriptions Disp Refills POTASSIUM CHLORIDE ER 20 MEQ TABLET,EXTENDED RELEASE 60 tablet 1 Sig: Take 1 tablet by mouth twice daily. DARCY: No Date of last office visit in primary care: 03/21/2022, has appt 09/20/2022 Last 2 Encounter Wt Readings: Date: Wt: 03/21/2022 52.6 kg (116 lb) 03/01/2022 53.1 kg (117 lb) Previous labs/tests for medication: Blood Pressure: BUN (mg/dL) Date Value 12/05/2021 10 04/25/2021 10 Sodium (mmol/L) Date Value 12/05/2021 139 04/25/2021 140 Last 1 Encounter BP Readings: Date: BP: 03/21/2022 122/70 Please advise. Thank you. Janett Izquierdo LPN documented in this encounterGlen[facility]igh Hospital06-15-2022 Instructions* Patient Instructions* Kurt Saravia MD - 03/21/2022 10:50 AM EDT Please get labs and urine test done on or after 09/07/2022 prior to your next visit. documented in this encounterGlenbeigh Hospital06-15-2022 History of Present illness Narrative* Kurt Saravia MD - 03/21/2022 10:00 AM EDT Chief Complaint Patient presents with: Recheck: 6 months HPI Edison Albarran is a 76 year old female who presents here today for 6 month follow up. Patient with Hx, bilateral carotid artery disease, DM 2, HTN, Hypothyroidism, Hyperlipidemia, depression, Mod AR, chronic microscopic hematuria, chronic arthritic pain as well as those reviewed and addressed below and in ROS. Patient never made f/u appt with gastro. Continues to be stable on current dose of Prozac. Past medical history, appointments, medications, allergies reviewed. Previous Medical History PAST MEDICAL HISTORY Diagnosis Date Agitation 02/02/2020 Bilateral carotid artery disease (HCC) 12/20/2015 US 12/2015: 20-40% on Rt and 40-60% on left. US 01/2017 unchanged. Chronic bilateral low back pain with sciatica 12/26/2016 Constipation 07/09/2018 after starting lipitor Decreased sensation of lower extremity 01/04/2016 Essential hypertension 2015 Essential tremor 09/18/2021 Ex-smoker 2015 1/2-1 PPD since early , quit January 2018 Hematuria 12/14/2015 Urology w/u neg. Hypothyroidism (acquired) 2015 Lymphocytic colitis 05/16/2020 Possibly Zoloft related. Mediastinal lymphadenopathy 08/04/2018 Prominent Mediastinal lymphadenopathy noted on CT 08/01/18. CT 01/05/2019 no mediastinal lymphadenopathy Mixed hyperlipidemia 2015 Moderate aortic regurgitation 01/19/2020 Osteoporosis 05/26/2015 Pain in both hands 12/26/2016 Pain in joint, multiple sites 12/07/2015 On neurontin Recurrent major depressive disorder, in remission (HCC) 07/01/2018 Spinal stenosis, lumbar region, with neurogenic claudication 01/23/2016 Type 2 diabetes mellitus without complication, without long-term current use of insulin (HCC) 12/07/2015 Urgency of urination 06/13/2016 Previous Surgical History PAST SURGICAL HISTORY Procedure Laterality Date 2D ECHO (EXEP) 09/2020 EF=64%, Mild Noe dysf and La enlargment, 2+ AR CARPAL TUNNEL RIGHT WRIST COLONOSCOPY 2010 repeat 10 yrs COLONOSCOPY FLX DX W/COLLJ SPEC WHEN PFRMD 04/21/2020 Colonoscopy CORRECTION OF BUNION Left ESOPHAGOGASTRODUODENOSCOPY TRANSORAL DIAGNOSTIC 04/21/2020 EGD FECAL OCCULT BLOOD TEST 01/01/2018 negative HYSTERECTOMY HX 1970 one ovary removed LEXISCAN STRESS TEST 11/21/2020 negative PAST SURGICAL HISTORY OF 1971 appendectomy PAST SURGICAL HISTORY OF 1987 breast lump, benign STRESS TEST 07/09/2016 WNL TUMOR REMOVAL (SPECIFY LOCATION) HX 2001 stomach Family History FAMILY HISTORY Problem Relation Age of Onset Breast Cancer Mother over 50 Hypertension Mother Lipids Mother Osteoporosis Mother Thyroid Mother Cancer Father stomach Cancer Brother lung Alzheimer's Disease Brother dementia Diabetes Brother Patient Allergies ALLERGIES Allergen Reactions Bactrim [Sulfametho* Other: See Comments Unknown. Cephalexin Other: See Comments Unknown. Citalopram Swelling Throat swelled Cymbalta [Duloxetin* Other: See Comments Made her feel groggy. Current Medications Current Outpatient Medications on File Prior to Visit Medication Sig potassium chloride 20 mEq TbER Take 1 tablet by mouth twice daily. FLUoxetine HCl (PROZAC) 40 mg capsule Take 1 capsule by mouth once daily. mirabegron (MYRBETRIQ) 50 mg Tb24 Take 1 tablet by mouth once daily. atorvastatin (LIPITOR) 40 mg tablet Take 1 tablet by mouth daily at bedtime. For cholesterol. levothyroxine (SYNTHROID) 50 mcg tablet Take 1 tablet by mouth daily before breakfast. cyclobenzaprine (FLEXERIL) 10 mg tablet Take 1 tablet by mouth every 8 hours as needed for muscle spasm (or pain). VITAMIN E ACETATE ORAL Take by mouth. ascorbic acid (VITAMIN C ORAL) Take by mouth. Melatonin 5 mg cap Take 1 capsule by mouth daily at bedtime. aspirin, enteric coated (ADULT LOW DOSE ASPIRIN) 81 mg EC tablet Take 1 tablet by mouth once daily. No current facility-administered medications on file prior to visit. Social History Social History Tobacco Use Smoking status: Former Smoker Types: Cigarettes Quit date: 06/13/2016 Years since quittin.7 Smokeless tobacco: Never Used Tobacco comment: 4 cigarettes per daily Vaping Use Vaping Use: Never used Substance Use Topics Alcohol use: No Drug use: Not on file Review of Symptoms REVIEW OF SYSTEMS GENERAL: No weight loss, malaise or fevers NECK: Negative for lumps, goiter, pain and significant neck swelling RESPIRATORY: Negative for cough, hemoptysis, wheezing, COPD, increased dyspnea or shortness of breath from base line. CARDIOVASCULAR: Negative for chest pain, leg swelling, hypertension, CHF or palpitations GI: No nausea, vomiting. Still with loose frequent stools and No heartburn or reflux symptoms : No history of dysuria, blood. PSYCH: Negative for sleep disturbance, mood disorder and recent psychosocial stressors. Stable withProzac. ENDOCRINE: Negative for symptoms of low BS's NEURO: No history of headaches, syncope, paralysis, seizures or tremors EXAM: BP 122/70 Pulse 78 Resp 14 Wt 52.6 kg (116 lb) BMI 23.43 kg/m Last 5 Encounter Wt Readings: Date: Wt: 03/21/2022 52.6 kg (116 lb) 03/01/2022 53.1 kg (117 lb) 09/18/2021 51.2 kg (112 lb 12.8 oz) 05/10/2021 45.8 kg (101 lb) 05/10/2021 46.1 kg (101 lb 9.6 oz) General Appearance: Well appearing, alert, in no acute distress, well-hydrated, well nourished.. Eyes: Anicteric sclera. Pupils are equally round and reactive to light. Extraocular movements are intact. . Neck: Supple, no adenopathy; thyroid symmetric, normal size, no bruits. Lungs: Lungs clear to auscultation. No wheezing, rhonchi, rales.. Heart: RRR without murmur, gallop, or rubs. No ectopy. Abdomen: Normal abdominal exam, Abdomen soft, non-tender. Bowel sounds normal. No masses, organomegaly. Extremities: No deformities, edema, skin discoloration, clubbing or cyanosis. Musculoskeletal: Muscular strength intact, No joint swelling, deformity, or tenderness. Peripheral Pulses: Normal. Neurologic: Gait normal. Sensation to light touch and crainal nerves 2-12 intact.. Health Maintenance List DILATED RETINAL EXAM Never done ADVANCE DIRECTIVE DISCUSSION Never done COVID-19 VACCINE(4 - Booster for Moderna series) due on 02/07/2022 SHINGRIX VACCINE(1 of 2) due on 09/18/2022 HBA1C due on 06/07/2022 DIABETIC FOOT EXAM due on 09/18/2022 ANNUAL PCP TEAM CHRONIC DISEASE VISIT due on 09/18/2022 URINE ALBUMIN:CREATININE RATIO due on 12/05/2022 LDL CHOLESTEROL due on 12/05/2022 BP CONTROLLED (<130/80) due on 03/01/2023 DTAP,TDAP,TD(2 - Td or Tdap) due on 05/29/2028 BONE DENSITY Completed INFLUENZA Completed PNEUMOCOCCAL: 65+ Completed HEPATITIS C SCREENING Discontinued Data reviewed Component Latest Ref Rng & Units 04/25/2021 05/10/2021 12/05/2021 WBC 3.70 - 11.00 k/uL 9.79 6.65 RBC 3.90 - 5.20 m/uL 4.20 4.28 Hemoglobin 11.5 - 15.5 g/dL 12.4 12.6 Hematocrit 36.0 - 46.0 % 38.0 38.9 MCV 80.0 - 100.0 fL 90.5 90.9 MCH 26.0 - 34.0 pg 29.5 29.4 MCHC 30.5 - 36.0 g/dL 32.6 32.4 RDW-CV 11.5 - 15.0 % 13.4 13.1 Platelet Count 150 - 400 k/uL 282 260 MPV 9.0 - 12.7 fL 8.5 (L) 9.7 Neut% % 67.5 62.4 Abs Neut (ANC) 1.45 - 7.50 k/uL 6.60 4.16 Lymph% % 21.3 26.8 Abs Lymph 1.00 - 4.00 k/uL 2.09 1.78 Hooker% % 10.1 8.6 Abs Hooker <0.87 k/uL 0.99 (H) 0.57 Eosin% % 0.7 0.8 Abs Eosin <0.46 k/uL 0.07 0.05 Baso% % 0.4 0.9 Abs Baso <0.11 k/uL 0.04 0.06 Immature Gran % % 0.5 IMMATURE GRANS (ABS) <0.10 k/uL 0.03 NRBC /100 WBC 0.0 Absolute nRBC <0.01 k/uL <0.01 DTYPE Auto Auto Protein, Total 6.3 - 8.0 g/dL 6.2 (L) 7.0 6.8 Albumin 3.9 - 4.9 g/dL 3.9 4.4 4.5 Calcium 8.5 - 10.2 mg/dL 9.2 9.6 9.7 Bilirubin, Total 0.2 - 1.3 mg/dL 0.4 0.4 0.9 Alkaline Phosphatase 34 - 123 U/L 87 111 104 AST 13 - 35 U/L 32 20 21 Glucose 74 - 99 mg/dL 70 (L) 85 131 (H) BUN 7 - 21 mg/dL 10 18 10 Creatinine 0.58 - 0.96 mg/dL 0.76 0.85 1.06 (H) Sodium 136 - 144 mmol/L 140 136 139 Potassium 3.7 - 5.1 mmol/L 2.9 (L) 3.9 4.7 Chloride 97 - 105 mmol/L 99 100 101 CO2 22 - 30 mmol/L 31 (H) 28 28 Anion Gap 9 - 18 mmol/L 10 8 (L) 10 ALT 7 - 38 U/L 24 12 10 eGFR- >60 >60 eGFR-All Other Races >60 >60 eGFR >=60 mL/min/1.73m 54 (L) Color Yellow Yellow Clarity Clear Clear Glucose, Urine Negative Negative Bilirubin, Urine Negative Negative Ketones, Urine Negative Negative Specific [place], Ur 1.005 - 1.030 1.013 Hemoglobin/Blood,Ur Negative Negative pH, Urine 5.0 - 8.0 7.0 Protein, Urine Negative 1+ (A) Urobilinogen Negative Negative Nitrites Negative Negative Leukest Negative Negative WBC, Urine 0-5 /HPF 0-5 /HPF RBC, Urine 0-3 /HPF 0-3 /HPF Epithelial Cells /HPF Few Hyaline Cast 0 /LPF 4-10 /LPF (A) Total Cholesterol, Nonfasting <200 mg/dL 150 Triglycerides, Nonfasting <150 mg/dL 109 HDL Cholesterol, Nonfasting >39 mg/dL 52 LDL Cholesterol, Nonfasting <100 mg/dL 76 Non HDL Cholesterol, Nonfasting <130 mg/dL 98 VLDL Cholesterol, Nonfasting <30 mg/dL 22 Total Chol/HDL Ratio, Nonfasting <5.10 mg/dL 2.88 LDL/HDL Ratio, Nonfasting <2.54 mg/dL 1.46 Creatinine, Ur Random (UCRR) 20.0 - 300.0 mg/dL 173.3 Albumin, Urine Random mg/L 18.2 Albumin/Creat Ratio <30 mg/g 11 Hemoglobin A1C 4.3 - 5.6 % 5.3 5.8 (H) Estimated Average Glucose mg/dL 105 120 PT Sec 9.7 - 13.0 sec 11.0 PT INR 0.9 - 1.3 1.0 Lipase 16 - 61 U/L 31 TSH 0.270 - 4.200 mIU/L 0.671 APTT 23.0 - 32.4 sec 25.9 A/P ASSESSMENT/PLAN: 1. Type 2 diabetes mellitus without complication, without long-term current use of insulin (HCC) - ICD9: 250.00, ICD10: E11.9 (primary diagnosis) Controlled. - Encouraged regular aerobic exercise and weight loss - BP goal of <130/80 - LDL goal of <100 - Controlled via diet. 2. Essential hypertension - ICD9: 401.9, ICD10: I10 - good control - Continue current medication(s) - Recommended regular aerobic exercise. - Recommend home blood pressure monitoring, to bring results in on next visit - Goal of BP <130/80 3. Mixed hyperlipidemia - ICD9: 272.2, ICD10: E78.2 - good control - Encouraged following a low fat, low cholesterol diet. - Discussed the benefits of regular aerobic exercise and weight loss. - Encouraged following a low carbohydrate, healthy oil intake diet. - Continue current therapy. 4. Hypothyroidism (acquired) - ICD9: 244.9, ICD10: E03.9 - Instructed patient on importance of taking on an empty stomach either first thing in the morning or at bedtime. - continue current dose of Synthroid 5. Bilateral carotid artery stenosis - ICD9: 433.10, 433.30, ICD10: I65.23 - Cont current management. will need US in 09/2022 6. Moderate aortic insufficiency - ICD9: 424.1, ICD10: I35.1 - management per cardio. Stable 7. Agitation - ICD9: 307.9, ICD10: R45.1 - Stable with current Tx. 8. Recurrent major depressive disorder, in remission (HCC) - ICD9: 296.35, ICD10: F33.40 - As per #7 9. Essential tremor - ICD9: 333.1, ICD10: G25.0 - Stable no changes 10. Pain in joint, multiple sites - ICD9: 719.49, ICD10: M25.50 - No changes needed. 11. Protein deficiency (HCC) - ICD9: 260, ICD10: E46 - Improved with diet. Level normal recently. 12. Advance directive discussed with patient - ICD9: V65.49, ICD10: Z71.89 - Copy in chart 13. Renal insufficiency - ICD9: 593.9, ICD10: N28.9 - Advised on increased water. 14. Living will on file - ICD9: V49.89, ICD10: Z87.898 - In chart. 15. Encounter for screening mammogram for breast cancer - ICD9: V76.12, ICD10: Z12.31 check - BIANKA SCREENING 16. Lymphocytic colitis - ICD9: 558.9, ICD10: K52.832 Patient to get back in with gastro Signed Prescriptions Disp Refills levothyroxine (SYNTHROID) 50 mcg tablet 90 tablet 1 Sig: Take 1 tablet by mouth daily before breakfast. DARCY: No atorvastatin (LIPITOR) 40 mg tablet 90 tablet 1 Sig: Take 1 tablet by mouth daily at bedtime. For cholesterol. DARCY: No FLUoxetine (PROZAC) 40 mg capsule 30 capsule 5 Sig: Take 1 capsule by mouth once daily. DARCY: No F/u 6 months extensive check CMP, Lipid, UA, urine micro albumin, A1c, CBC, TSH prior Kurt Saravia MD documented in this encounterG[facility]05-26-[facility]22 History of Present illness Narrative* Bolivar Cordoba, DO - 03/01/2022 10:55 AM EDT Images from the original note were not included. [facility] OUTPATIENT VISIT DATE March 01, 2022 PRIMARY CARE PHYSICIAN: Kurt Saarvia [address] [place] [address] HISTORY OF PRESENT ILLNESS: Ms. Albarran is a 76 year old female. The patient returns for follow-up due to history of sinus bradycardia in the context of significant hypokalemia. She has since been placed on potassium replacement. She has additional history of hypertension and aortic insufficiency as well as hyperlipidemia.She remains normotensive on no antihypertensive medications. She is slightly deconditioned. Her sonaccompanies her today. Recent echocardiogram in 2020 demonstrated trivial aortic insufficiency and recent nuclear stress imaging was normal as well. She denies chest scar, dyspnea, orthopnea, paroxysmal nocturnal dyspnea, palpitations, near-syncope or syncope. PLAN AND RECOMMENDATIONS: The patient remained stable without symptoms that would suggest angina or cardiac compensation. Heart rate, blood pressure and recent cholesterol profile are favorable. We have therefore made no additions or changes. Dietary and lifestyle modification was reemphasized to facilitate risk factor reduction. We discussed engaging in an exercise program with gradual increases in both exercise anaerobically as well as aerobically including resistance training with weights with which she states she has in her own home. We will follow-up with her in 6 months time regardless. Should she not improve, we have asked her to come back to see us sooner. Vitals: BP 124/70 Pulse 62 Ht 149.9 cm (4' 11 ) Wt 53.1 kg (117 lb) SpO2 98% BMI 23.63 kg/m Physical Exam Vitals reviewed. Constitutional: Appearance: She is well-developed. HENT: Head: Normocephalic and atraumatic. Eyes: Pupils: Pupils are equal, round, and reactive to light. Neck: Thyroid: No thyromegaly. Vascular: No JVD. Cardiovascular: Rate and Rhythm: Normal rate and regular rhythm. Heart sounds: Normal heart sounds. No murmur heard. No friction rub. No gallop. Pulmonary: Effort: Pulmonary effort is normal. No respiratory distress. Breath sounds: Normal breath sounds. No wheezing or rales. Abdominal: General: Bowel sounds are normal. Palpations: Abdomen is soft. Musculoskeletal: General: Normal range of motion. Cervical back: Normal range of motion and neck supple. Skin: General: Skin is warm and dry. Coloration: Skin is not pale. Neurological: Mental Status: She is alert and oriented to person, place, and time. Cranial Nerves: No cranial nerve deficit. Psychiatric: Behavior: Behavior normal. Thought Content: Thought content normal. Judgment: Judgment normal. Review of Systems Constitutional: Negative for activity change and fatigue. HENT: Negative for ear pain and facial swelling. Eyes: Negative for pain and discharge. Respiratory: Negative for chest tightness and shortness of breath. Cardiovascular: Negative for chest pain, palpitations and leg swelling. Gastrointestinal: Positive for diarrhea (improved). Negative for abdominal pain, blood in stool, nausea and vomiting. Endocrine: Negative for cold intolerance and heat intolerance. Genitourinary: Negative for frequency and hematuria. Musculoskeletal: Negative for arthralgias and gait problem. Skin: Negative for color change, pallor and rash. Allergic/Immunologic: Negative for immunocompromised state. Neurological: Negative for syncope, light-headedness and headaches. Hematological: Negative for adenopathy. Does not bruise/bleed easily. Psychiatric/Behavioral: Negative for confusion. The patient is not nervous/anxious. PAST MEDICAL HISTORY Diagnosis Date Agitation 02/02/2020 Bilateral carotid artery disease (HCC) 12/20/2015 US 12/2015: 20-40% on Rt and 40-60% on left. US 01/2017 unchanged. Chronic bilateral low back pain with sciatica 12/26/2016 Constipation 07/09/2018 after starting lipitor Decreased sensation of lower extremity 01/04/2016 Essential hypertension 2015 Essential tremor 09/18/2021 Ex-smoker 2015 1/2-1 PPD since early s, quit January 2018 Hematuria 12/14/2015 Urology w/u neg. Hypothyroidism (acquired) 2015 Lymphocytic colitis 05/16/2020 Possibly Zoloft related. Mediastinal lymphadenopathy 08/04/2018 Prominent Mediastinal lymphadenopathy noted on CT 08/01/18. CT 01/05/2019 no mediastinal lymphadenopathy Mixed hyperlipidemia 2015 Moderate aortic regurgitation 01/19/2020 Osteoporosis 05/26/2015 Pain in both hands 12/26/2016 Pain in joint, multiple sites 12/07/2015 On neurontin Recurrent major depressive disorder, in remission ([facility]) 07/01/2018 Spinal stenosis, lumbar region, with neurogenic claudication 01/23/2016 Type 2 diabetes mellitus without complication, without long-term current use of insulin ([facility]) 12/07/2015 Urgency of urination 06/13/2016 PAST SURGICAL HISTORY Procedure Laterality Date 2D ECHO (EXEP) 09/2020 EF=64%, Mild Noe dysf and La enlargment, 2+ AR CARPAL TUNNEL RIGHT WRIST COLONOSCOPY 2010 repeat 10 yrs COLONOSCOPY FLX DX W/COLLJ SPEC WHEN PFRMD 04/21/2020 Colonoscopy CORRECTION OF BUNION Left ESOPHAGOGASTRODUODENOSCOPY TRANSORAL DIAGNOSTIC 04/21/2020 EGD FECAL OCCULT BLOOD TEST 01/01/2018 negative HYSTERECTOMY HX 1970 one ovary removed LEXISCAN STRESS TEST 11/21/2020 negative PAST SURGICAL HISTORY OF 1972 appendectomy PAST SURGICAL HISTORY OF 1987 breast lump, benign STRESS TEST 07/09/2016 WNL TUMOR REMOVAL (SPECIFY LOCATION) HX 2002 stomach Social History Tobacco Use Smoking status: Former Smoker Types: Cigarettes Quit date: 06/13/2016 Years since quittin.7 Smokeless tobacco: Never Used Tobacco comment: 4 cigarettes per daily Vaping Use Vaping Use: Never used Substance Use Topics Alcohol use: No Drug use: Not on file FAMILY HISTORY Problem Relation Age of Onset Breast Cancer Mother over 50 Hypertension Mother Lipids Mother Osteoporosis Mother Thyroid Mother Cancer Father stomach Cancer Brother lung Alzheimer's Disease Brother dementia Diabetes Brother ALLERGIES Allergen Reactions Bactrim [Sulfametho* Other: See Comments Unknown. Cephalexin Other: See Comments Unknown. Citalopram Swelling Throat swelled Cymbalta [Duloxetin* Other: See Comments Made her feel groggy. CURRENT MEDICATIONS: potassium chloride 20 mEq TbER Take 1 tablet by mouth twice daily. FLUoxetine HCl (PROZAC) 40 mg capsule Take 1 capsule by mouth once daily. mirabegron (MYRBETRIQ) 50 mg Tb24 Take 1 tablet by mouth once daily. atorvastatin (LIPITOR) 40 mg tablet Take 1 tablet by mouth daily at bedtime. For cholesterol. levothyroxine (SYNTHROID) 50 mcg tablet Take 1 tablet by mouth daily before breakfast. cyclobenzaprine (FLEXERIL) 10 mg tablet Take 1 tablet by mouth every 8 hours as needed for muscle spasm (or pain). VITAMIN E ACETATE ORAL Take by mouth. ascorbic acid (VITAMIN C ORAL) Take by mouth. Melatonin 5 mg cap Take 1 capsule by mouth daily at bedtime. aspirin, enteric coated (ADULT LOW DOSE ASPIRIN) 81 mg EC tablet Take 1 tablet by mouth once daily. Bolivar Cordoba DO, FACC, FACOI Clinical and Preventive Cardiology Department of Medicine and Division of Cardiology, [facility] [place] Consultantrequisition approver [facility] [place] Consultant of Congestive Heart Failure Clinic [facility] Cardiology Office [place] Consultant [facility] Staff Container Washer [employer], [employer] Hina Winter Department of Cardiovascular Medicine/Heart and Vascular [place], [facility] Clinical Technical Assistant Profressor of Medicine, [facility] Please note: This note has been produced using speech recognition software and may contain errors related to that system including paulo, punctuation, spelling, words, gender and phrases that may be inappropriate. documented in this encounterGlenbeigh Hospital05-04-2022 Miscellaneous Notes* Telephone Encounter - Yoko York Ma - 02/07/2022 6:39 PM EDT Patient was notified Yoko York Ma * Telephone Encounter - Kurt Saravia MD - 02/07/2022 6:18 PM EDT Let patient know new potassium med sent to pharmacy. The following approved medication requests have been transmitted electronically. Signed Prescriptions Disp Refills potassium chloride 20 mEq TbER 60 tablet 1 Sig: Take 1 tablet by mouth twice daily. Authorizing Provider: KURT SARAVIA MD * Telephone Encounter - Brenda Sanabria MA - 02/07/2022 12:10 PM EDT Patient stopped by the office and indicated that her insurance will not cover Effer-K tab 20MEQ. Can we send in another prescription for the potassium. Patient wants to stay on medication. Brenda Sanabria MA [facility] . Brenda Sanabria MA documented in this encounterGlen[facility] Hospital04-04-2022 Miscellaneous Notes* Telephone Encounter - Marty Barkley LPN - 01/08/2022 11:48 AM EDT Pt notified of same. Marty Barkley LPN * Telephone Encounter - Kurt Saravia MD - 01/08/2022 11:44 AM EDT Let patient know new script sent. The following approved medication requests have been transmitted electronically. Signed Prescriptions Disp Refills Potassium Bicarb-Citric Acid (EFFER-K) 20 mEq tbef 60 tablet 5 Sig: Take 1 tablet by mouth twice daily. Authorizing Provider: KURT SARAVIA MD * Telephone Encounter - Teresa Yuen RN - 01/08/2022 8:12 AM EDT Patient calls and states that she recently switched insurances. Her current insurance will not cover Potassium BiCarb- Citric Acid 25 mEq. Patient states that insurance told her that if medication was decreased to 20 MEq then it will be covered. Patient asking if provider can change prescription? Please review and advise, Teresa Yuen RN documented in this encounterGlenbeigh Hospital04-20-2021 History of Past illness Narrative* Problem Noted Date Resolved Date Protein deficiency 01/24/2021 09/20/2022 Overview: malnutrition Encounter for screening mammogram for breast can cer 12/26/2017 09/18/2019 Well adult exam 12/26/2016 09/18/2019 Overview: Last done: 12/31/2018 Pain in both hands 12/26/2016 09/18/2019 Bilateral carotid artery disease 12/20/2015 09/18/2019 Overview: US 12/2015: 20-40% on Rt and 40-60% on left. US 01/2017 unchanged. US 07/2018 20- 40% RT and 60-80% left. US 07/2019 stable Hematuria 12/14/2015 09/18/2019 Overview: Urology w/u neg. Colon cancer screening 12/07/2015 9 Elevated fasting blood sugar 12/07/2015 documented as of this encounter (statuses as of 09/20/2022) [facility] History of Past illness Narrative* Problem Noted Date Resolved Date Protein deficiency 01/24/2021 09/20/2022 Overview: malnutrition Encounter for screening mammogram for breast can cer 12/26/2017 09/18/2019 Well adult exam 12/26/2016 09/18/2019 Overview: Last done: 12/31/2018 Pain in both hands 12/26/2016 09/18/2019 Bilateral carotid artery disease 12/20/2015 09/18/2019 Overview: US 12/2015: 20-40% on Rt and 40-60% on left. US 01/2017 unchanged. US 07/2018 20- 40% RT and 60-80% left. US 07/2019 stable Hematuria 12/14/2015 09/18/2019 Overview: Urology w/u neg. Colon cancer screening 12/07/2015 9 Elevated fasting blood sugar 12/07/2015 documented as of this encounter (statuses as of 09/20/2022) [facility] of Past illness Narrative* Problem Noted Date Resolved Date Protein deficiency 01/24/2021 09/20/2022 Overview: malnutrition Encounter for screening mammogram for breast can cer 12/26/2017 09/18/2019 Well adult exam 12/26/2016 09/18/2019 Overview: Last done: 12/31/2018 Pain in both hands 12/26/2016 09/18/2019 Bilateral carotid artery disease 12/20/2015 09/18/2019 Overview: US 12/2015: 20-40% on Rt and 40-60% on left. US 01/2017 unchanged. US 07/2018 20- 40% RT and 60-80% left. US 07/2019 stable Hematuria 12/14/2015 09/18/2019 Overview: Urology w/u neg. Colon cancer screening 12/07/2015 12/13/201 9 Elevated fasting blood sugar 12/07/2015 documented as of this encounter (statuses as of 10/11/2022) [facility] of Past illness Narrative* Problem Noted Date Resolved Date Protein deficiency 01/24/2021 09/20/2022 Overview: malnutrition Encounter for screening mammogram for breast can cer 12/26/2017 09/18/2019 Well adult exam 12/26/2016 09/18/2019 Overview: Last done: 12/31/2018 Pain in both hands 12/26/2016 09/18/2019 Bilateral carotid artery disease 12/20/2015 09/18/2019 Overview: US 12/2015: 20-40% on Rt and 40-60% on left. US 01/2017 unchanged. US 07/2018 20- 40% RT and 60-80% left. US 07/2019 stable Hematuria 12/14/2015 09/18/2019 Overview: Urology w/u neg. Colon cancer screening 12/07/2015 9 Elevated fasting blood sugar 12/07/2015 documented as of this encounter (statuses as of 10/11/2022) [facility] of [facility] Narrative* Problem Noted Date Resolved Date Protein deficiency 01/24/2021 09/20/2022 Overview: malnutrition Encounter for screening mammogram for breast can cer 12/26/2017 09/18/2019 Well adult exam 12/26/2016 09/18/2019 Overview: Last done: 12/31/2018 Pain in both hands 12/26/2016 09/18/2019 Bilateral carotid artery disease 12/20/2015 09/18/2019 Overview: US 12/2015: 20-40% on Rt and 40-60% on left. US 01/2017 unchanged. 07/2018 20- 40% RT and 60-80% left. 07/2019 stable Hematuria 12/14/2015 09/18/2019 Overview: Urology w/u neg. Colon cancer screening 12/07/2015 9 Elevated fasting blood sugar 12/07/2015 documented as of this encounter (statuses as of 11/10/2022) [facility] of [facility] illness Narrative* Problem Noted Date Resolved Date Protein deficiency 01/24/2021 09/20/2022 Overview: malnutrition Encounter for screening mammogram for breast can cer 12/26/2017 09/18/2019 Well adult exam 12/26/2016 09/18/2019 Overview: Last done: 12/31/2018 Pain in both hands 12/26/2016 09/18/2019 Bilateral carotid artery disease 12/20/2015 09/18/2019 Overview: US 12/2015: 20-40% on Rt and 40-60% on left. US 01/2017 unchanged. US 07/2018 20- 40% RT and 60-80% left. US 07/2019 stable Hematuria 12/14/2015 09/18/2019 Overview: Urology w/u neg. Colon cancer screening 12/07/2015 9 Elevated fasting blood sugar 12/07/2015 documented as of this encounter (statuses as of 11/14/2022) [facility] of Past illness Narrative* Problem Noted Date Resolved Date Protein deficiency 01/24/2021 09/20/2022 Overview: malnutrition Encounter for screening mammogram for breast can cer 12/26/2017 09/18/2019 Well adult exam 12/26/2016 09/18/2019 Overview: Last done: 12/31/2018 Pain in both hands 12/26/2016 09/18/2019 Bilateral carotid artery disease 12/20/2015 09/18/2019 Overview: US 12/2015: 20-40% on Rt and 40-60% on left. US 01/2017 unchanged. US 07/2018 20- 40% RT and 60-80% left. US 07/2019 stable Hematuria 12/14/2015 09/18/2019 Overview: Urology w/u neg. Colon cancer screening 12/07/2015 9 Elevated fasting blood sugar 12/07/2015 documented as of this encounter (statuses as of 11/22/2022) [facility] Narrative* Problem Noted Date Resolved Date Protein deficiency 01/24/2021 09/20/2022 Overview: malnutrition Encounter for screening mammogram for breast can cer 12/26/2017 09/18/2019 Well adult exam 12/26/2016 09/18/2019 Overview: Last done: 12/31/2018 Pain in both hands 12/26/2016 09/18/2019 Bilateral carotid artery disease 12/20/2015 09/18/2019 Overview: US 12/2015: 20-40% on Rt and 40-60% on left. US 01/2017 unchanged. US 07/2018 20- 40% RT and 60-80% left. US 07/2019 stable Hematuria 12/14/2015 09/18/2019 Overview: Urology w/u neg. Colon cancer screening 12/07/2015 9 Elevated fasting blood sugar 12/07/2015 documented as of this encounter (statuses as of 11/22/2022) [facility]21 History of Past illness Narrative* Problem Noted Date Resolved Date Protein deficiency 01/24/2021 09/20/2022 Overview: malnutrition Encounter for screening mammogram for breast can cer 12/26/2017 09/18/2019 Well adult exam 12/26/2016 09/18/2019 Overview: Last done: 12/31/2018 Pain in both hands 12/26/2016 09/18/2019 Bilateral carotid artery disease 12/20/2015 09/18/2019 Overview: US 12/2015: 20-40% on Rt and 40-60% on left. US 01/2017 unchanged. 07/2018 20- 40% RT and 60-80% left. US 07/2019 stable Hematuria 12/14/2015 09/18/2019 Overview: Urology w/u neg. Colon cancer screening 12/07/2015 9 Elevated fasting blood sugar 12/07/2015 documented as of this encounter (statuses as of 11/26/2022) [facility] History of Past illness Narrative* Problem Noted Date Resolved Date Protein deficiency 01/24/2021 09/20/2022 Overview: malnutrition Encounter for screening mammogram for breast can cer 12/26/2017 09/18/2019 Well adult exam 12/26/2016 09/18/2019 Overview: Last done: 12/31/2018 Pain in both hands 12/26/2016 09/18/2019 Bilateral carotid artery disease 12/20/2015 09/18/2019 Overview: US 12/2015: 20-40% on Rt and 40-60% on left. US 01/2017 unchanged. US 07/2018 20- 40% RT and 60-80% left. US 07/2019 stable Hematuria 12/14/2015 09/18/2019 Overview: Urology w/u neg. Colon cancer screening 12/07/2015 9 Elevated fasting blood sugar 12/07/2015 documented as of this encounter (statuses as of 11/30/2022) [facility] History of Past illness Narrative* Problem Noted Date Resolved Date Protein deficiency 01/24/2021 09/20/2022 Overview: malnutrition Encounter for screening mammogram for breast can cer 12/26/2017 09/18/2019 Well adult exam 12/26/2016 09/18/2019 Overview: Last done: 12/31/2018 Pain in both hands 12/26/2016 09/18/2019 Bilateral carotid artery disease 12/20/2015 09/18/2019 Overview: US 12/2015: 20-40% on Rt and 40-60% on left. 01/2017 unchanged. 07/2018 20- 40% RT and 60-80% left. 07/2019 stable Hematuria 12/14/2015 09/18/2019 Overview: Urology w/u neg. Colon cancer screening 12/07/2015 9 Elevated fasting blood sugar 12/07/2015 documented as of this encounter (statuses as of 12/04/2022) [facility] History of Past illness Narrative* Problem Noted Date Resolved Date Protein deficiency 01/24/2021 09/20/2022 Overview: malnutrition Encounter for screening mammogram for breast can cer 12/26/2017 09/18/2019 Well adult exam 12/26/2016 09/18/2019 Overview: Last done: 12/31/2018 Pain in both hands 12/26/2016 09/18/2019 Bilateral carotid artery disease 12/20/2015 09/18/2019 Overview: US 12/2015: 20-40% on Rt and 40-60% on left. US 01/2017 unchanged. 07/2018 20- 40% RT and 60-80% left. 07/2019 stable Hematuria 12/14/2015 09/18/2019 Overview: Urology w/u neg. Colon cancer screening 12/07/2015 9 Elevated fasting blood sugar 12/07/2015 documented as of this encounter (statuses as of 12/06/2022) [facility] History of Past illness Narrative* Problem Noted Date Resolved Date Protein deficiency 01/24/2021 09/20/2022 Overview: malnutrition Encounter for screening mammogram for breast can cer 12/26/2017 09/18/2019 Well adult exam 12/26/2016 09/18/2019 Overview: Last done: 12/31/2018 Pain in both hands 12/26/2016 09/18/2019 Bilateral carotid artery disease 12/20/2015 09/18/2019 Overview: US 12/2015: 20-40% on Rt and 40-60% on left. US 01/2017 unchanged. 07/2018 20- 40% RT and 60-80% left. US 07/2019 stable Hematuria 12/14/2015 09/18/2019 Overview: Urology w/u neg. Colon cancer screening 12/07/2015 9 Elevated fasting blood sugar 12/07/2015 documented as of this encounter (statuses as of 12/06/2022) [facility] History of Past illness Narrative* Problem Noted Date Resolved Date Protein deficiency 01/24/2021 09/20/2022 Overview: malnutrition Encounter for screening mammogram for breast can cer 12/26/2017 09/18/2019 Well adult exam 12/26/2016 09/18/2019 Overview: Last done: 12/31/2018 Pain in both hands 12/26/2016 09/18/2019 Bilateral carotid artery disease 12/20/2015 09/18/2019 Overview: US 12/2015: 20-40% on Rt and 40-60% on left. US 01/2017 unchanged. 07/2018 20- 40% RT and 60-80% left. 07/2019 stable Hematuria 12/14/2015 09/18/2019 Overview: Urology w/u neg. Colon cancer screening 12/07/2015 9 Elevated fasting blood sugar 12/07/2015 documented as of this encounter (statuses as of 12/08/2022) [facility] History of Past illness Narrative* Problem Noted Date Resolved Date Protein deficiency 01/24/2021 09/20/2022 Overview: malnutrition Encounter for screening mammogram for breast can cer 12/26/2017 09/18/2019 Well adult exam 12/26/2016 09/18/2019 Overview: Last done: 12/31/2018 Pain in both hands 12/26/2016 09/18/2019 Bilateral carotid artery disease 12/20/2015 09/18/2019 Overview: US 12/2015: 20-40% on Rt and 40-60% on left. US 01/2017 unchanged. US 07/2018 20- 40% RT and 60-80% left. US 07/2019 stable Hematuria 12/14/2015 09/18/2019 Overview: Urology w/u neg. Colon cancer screening 12/07/2015 9 Elevated fasting blood sugar 12/07/2015 documented as of this encounter (statuses as of 12/11/2022) [facility] History of Past illness Narrative* Problem Noted Date Resolved Date Protein deficiency 01/24/2021 09/20/2022 Overview: malnutrition Encounter for screening mammogram for breast can cer 12/26/2017 09/18/2019 Well adult exam 12/26/2016 09/18/2019 Overview: Last done: 12/31/2018 Pain in both hands 12/26/2016 09/18/2019 Bilateral carotid artery disease 12/20/2015 09/18/2019 Overview: US 12/2015: 20-40% on Rt and 40-60% on left. US 01/2017 unchanged. US 07/2018 20- 40% RT and 60-80% left. US 07/2019 stable Hematuria 12/14/2015 09/18/2019 Overview: Urology w/u neg. Colon cancer screening 12/07/2015 9 Elevated fasting blood sugar 12/07/2015 documented as of this encounter (statuses as of 12/26/2022) [facility] History of Past illness Narrative* Problem Noted Date Resolved Date Protein deficiency 01/24/2021 09/20/2022 Overview: malnutrition Encounter for screening mammogram for breast can cer 12/26/2017 09/18/2019 Well adult exam 12/26/2016 09/18/2019 Overview: Last done: 12/31/2018 Pain in both hands 12/26/2016 09/18/2019 Bilateral carotid artery disease 12/20/2015 09/18/2019 Overview: US 12/2015: 20-40% on Rt and 40-60% on left. US 01/2017 unchanged. US 07/2018 20- 40% RT and 60-80% left. US 07/2019 stable Hematuria 12/14/2015 09/18/2019 Overview: Urology w/u neg. Colon cancer screening 12/07/2015 9 Elevated fasting blood sugar 12/07/2015 documented as of this encounter (statuses as of 12/28/2022) [facility] History of Past illness Narrative* Problem Noted Date Resolved Date Protein deficiency 01/24/2021 09/20/2022 Overview: malnutrition Encounter for screening mammogram for breast can cer 12/26/2017 09/18/2019 Well adult exam 12/26/2016 09/18/2019 Overview: Last done: 12/31/2018 Pain in both hands 12/26/2016 09/18/2019 Bilateral carotid artery disease 12/20/2015 09/18/2019 Overview: US 12/2015: 20-40% on Rt and 40-60% on left. US 01/2017 unchanged. US 07/2018 20- 40% RT and 60-80% left. 07/2019 stable Hematuria 12/14/2015 09/18/2019 Overview: Urology w/u neg. Colon cancer screening 12/07/2015 9 Elevated fasting blood sugar 12/07/2015 documented as of this encounter (statuses as of 01/02/2023) [facility] History of Past illness Narrative* Problem Noted Date Resolved Date Protein deficiency 01/24/2021 09/20/2022 Overview: malnutrition Encounter for screening mammogram for breast can cer 12/26/2017 09/18/2019 Well adult exam 12/26/2016 09/18/2019 Overview: Last done: 12/31/2018 Pain in both hands 12/26/2016 09/18/2019 Bilateral carotid artery disease 12/20/2015 09/18/2019 Overview: US 12/2015: 20-40% on Rt and 40-60% on left. US 01/2017 unchanged. US 07/2018 20- 40% RT and 60-80% left. US 07/2019 stable Hematuria 12/14/2015 09/18/2019 Overview: Urology w/u neg. Colon cancer screening 12/07/2015 9 Elevated fasting blood sugar 12/07/2015 documented as of this encounter (statuses as of 01/25/2023) [facility] History of Past illness Narrative* Problem Noted Date Resolved Date Protein deficiency 01/24/2021 09/20/2022 Overview: malnutrition Encounter for screening mammogram for breast can cer 12/26/2017 09/18/2019 Well adult exam 12/26/2016 09/18/2019 Overview: Last done: 12/31/2018 Pain in both hands 12/26/2016 09/18/2019 Bilateral carotid artery disease 12/20/2015 09/18/2019 Overview: US 12/2015: 20-40% on Rt and 40-60% on left. US 01/2017 unchanged. US 07/2018 20- 40% RT and 60-80% left. US 07/2019 stable Hematuria 12/14/2015 09/18/2019 Overview: Urology w/u neg. Colon cancer screening 12/07/2015 9 Elevated fasting blood sugar 12/07/2015 documented as of this encounter (statuses as of 01/25/2023) [facility] History of Past illness Narrative* Problem Noted Date Resolved Date Protein deficiency 01/24/2021 09/20/2022 Overview: malnutrition Encounter for screening mammogram for breast can cer 12/26/2017 09/18/2019 Well adult exam 12/26/2016 09/18/2019 Overview: Last done: 12/31/2018 Pain in both hands 12/26/2016 09/18/2019 Bilateral carotid artery disease 12/20/2015 09/18/2019 Overview: US 12/2015: 20-40% on Rt and 40-60% on left. US 01/2017 unchanged. US 07/2018 20- 40% RT and 60-80% left. US 07/2019 stable Hematuria 12/14/2015 09/18/2019 Overview: Urology w/u neg. Colon cancer screening 12/07/2015 9 Elevated fasting blood sugar 12/07/2015 documented as of this encounter (statuses as of 02/04/2023) [facility] History of Past illness Narrative* Problem Noted Date Resolved Date Protein deficiency 01/24/2021 09/20/2022 Overview: malnutrition Encounter for screening mammogram for breast can cer 12/26/2017 09/18/2019 Well adult exam 12/26/2016 09/18/2019 Overview: Last done: 12/31/2018 Pain in both hands 12/26/2016 09/18/2019 Bilateral carotid artery disease 12/20/2015 09/18/2019 Overview: US 12/2015: 20-40% on Rt and 40-60% on left. US 01/2017 unchanged. US 07/2018 20- 40% RT and 60-80% left. US 07/2019 stable Hematuria 12/14/2015 09/18/2019 Overview: Urology w/u neg. Colon cancer screening 12/07/2015 9 Elevated fasting blood sugar 12/07/2015 documented as of this encounter (statuses as of 02/05/2023) [facility] History of Past illness Narrative* Problem Noted Date Resolved Date Protein deficiency 01/24/2021 09/20/2022 Overview: malnutrition Encounter for screening mammogram for breast can cer 12/26/2017 09/18/2019 Well adult exam 12/26/2016 09/18/2019 Overview: Last done: 12/31/2018 Pain in both hands 12/26/2016 09/18/2019 Bilateral carotid artery disease 12/20/2015 09/18/2019 Overview: US 12/2015: 20-40% on Rt and 40-60% on left. US 01/2017 unchanged. US 07/2018 20- 40% RT and 60-80% left. US 07/2019 stable Hematuria 12/14/2015 09/18/2019 Overview: Urology w/u neg. Colon cancer screening 12/07/2015 9 Elevated fasting blood sugar 12/07/2015 documented as of this encounter (statuses as of 03/04/2023) [facility] History of Past illness Narrative* Problem Noted Date Resolved Date Protein deficiency 01/24/2021 09/20/2022 Overview: malnutrition Encounter for screening mammogram for breast can cer 12/26/2017 09/18/2019 Well adult exam 12/26/2016 09/18/2019 Overview: Last done: 12/31/2018 Pain in both hands 12/26/2016 09/18/2019 Bilateral carotid artery disease 12/20/2015 09/18/2019 Overview: US 12/2015: 20-40% on Rt and 40-60% on left. US 01/2017 unchanged. 07/2018 20- 40% RT and 60-80% left. US 07/2019 stable Hematuria 12/14/2015 09/18/2019 Overview: Urology w/u neg. Colon cancer screening 12/07/2015 9 Elevated fasting blood sugar 12/07/2015 documented as of this encounter (statuses as of 03/07/2023) [facility] History of Past illness Narrative* Problem Noted Date Resolved Date Protein deficiency 01/24/2021 09/20/2022 Overview: malnutrition Encounter for screening mammogram for breast can cer 12/26/2017 09/18/2019 Well adult exam 12/26/2016 09/18/2019 Overview: Last done: 12/31/2018 Pain in both hands 12/26/2016 09/18/2019 Bilateral carotid artery disease 12/20/2015 09/18/2019 Overview: US 12/2015: 20-40% on Rt and 40-60% on left. US 01/2017 unchanged. 07/2018 20- 40% RT and 60-80% left. 07/2019 stable Hematuria 12/14/2015 09/18/2019 Overview: Urology w/u neg. Colon cancer screening 12/07/2015 9 Elevated fasting blood sugar 12/07/2015 documented as of this encounter (statuses as of 03/08/2023) [facility] History of Past illness Narrative* Problem Noted Date Resolved Date Protein deficiency 01/24/2021 09/20/2022 Overview: malnutrition Encounter for screening mammogram for breast can cer 12/26/2017 09/18/2019 Well adult exam 12/26/2016 09/18/2019 Overview: Last done: 12/31/2018 Pain in both hands 12/26/2016 09/18/2019 Bilateral carotid artery disease 12/20/2015 09/18/2019 Overview: US 12/2015: 20-40% on Rt and 40-60% on left. 01/2017 unchanged. 07/2018 20- 40% RT and 60-80% left. 07/2019 stable Hematuria 12/14/2015 09/18/2019 Overview: Urology w/u neg. Colon cancer screening 12/07/2015 9 Elevated fasting blood sugar 12/07/2015 documented as of this encounter (statuses as of 03/09/2023) [facility] History of Past illness Narrative* Problem Noted Date Resolved Date Protein deficiency 01/24/2021 09/20/2022 Overview: malnutrition Encounter for screening mammogram for breast can cer 12/26/2017 09/18/2019 Well adult exam 12/26/2016 09/18/2019 Overview: Last done: 12/31/2018 Pain in both hands 12/26/2016 09/18/2019 Bilateral carotid artery disease 12/20/2015 09/18/2019 Overview: US 12/2015: 20-40% on Rt and 40-60% on left. 01/2017 unchanged. 07/2018 20- 40% RT and 60-80% left. 07/2019 stable Hematuria 12/14/2015 09/18/2019 Overview: Urology w/u neg. Colon cancer screening 12/07/2015 9 Elevated fasting blood sugar 12/07/2015 documented as of this encounter (statuses as of 03/09/2023) [facility] History of Past illness Narrative* Problem Noted Date Resolved Date Protein deficiency 01/24/2021 09/20/2022 Overview: malnutrition Encounter for screening mammogram for breast can cer 12/26/2017 09/18/2019 Well adult exam 12/26/2016 09/18/2019 Overview: Last done: 12/31/2018 Pain in both hands 12/26/2016 09/18/2019 Bilateral carotid artery disease 12/20/2015 09/18/2019 Overview: US 12/2015: 20-40% on Rt and 40-60% on left. US 01/2017 unchanged. US 07/2018 20- 40% RT and 60-80% left. US 07/2019 stable Hematuria 12/14/2015 09/18/2019 Overview: Urology w/u neg. Colon cancer screening 12/07/2015 9 Elevated fasting blood sugar 12/07/2015 documented as of this encounter (statuses as of 03/13/2023) [facility] History of Past illness Narrative* Problem Noted Date Resolved Date Protein deficiency 01/24/2021 09/20/2022 Overview: malnutrition Encounter for screening mammogram for breast can cer 12/26/2017 09/18/2019 Well adult exam 12/26/2016 09/18/2019 Overview: Last done: 12/31/2018 Pain in both hands 12/26/2016 09/18/2019 Bilateral carotid artery disease 12/20/2015 09/18/2019 Overview: US 12/2015: 20-40% on Rt and 40-60% on left. US 01/2017 unchanged. US 07/2018 20- 40% RT and 60-80% left. 07/2019 stable Hematuria 12/14/2015 09/18/2019 Overview: Urology w/u neg. Colon cancer screening 12/07/2015 9 Elevated fasting blood sugar 12/07/2015 documented as of this encounter (statuses as of 03/13/2023) [facility] History of Past illness Narrative* Problem Noted Date Resolved Date Protein deficiency 01/24/2021 09/20/2022 Overview: malnutrition Encounter for screening mammogram for breast can cer 12/26/2017 09/18/2019 Well adult exam 12/26/2016 09/18/2019 Overview: Last done: 12/31/2018 Pain in both hands 12/26/2016 09/18/2019 Bilateral carotid artery disease 12/20/2015 09/18/2019 Overview: US 12/2015: 20-40% on Rt and 40-60% on left. US 01/2017 unchanged. US 07/2018 20- 40% RT and 60-80% left. US 07/2019 stable Hematuria 12/14/2015 09/18/2019 Overview: Urology w/u neg. Colon cancer screening 12/07/2015 9 Elevated fasting blood sugar 12/07/2015 documented as of this encounter (statuses as of 03/14/2023) [facility] of Past illness Narrative* Problem Noted Date Resolved Date Protein deficiency 01/24/2021 09/20/2022 Overview: malnutrition Encounter for screening mammogram for breast can cer 12/26/2017 09/18/2019 Well adult exam 12/26/2016 09/18/2019 Overview: Last done: 12/31/2018 Pain in both hands 12/26/2016 09/18/2019 Bilateral carotid artery disease 12/20/2015 09/18/2019 Overview: US 12/2015: 20-40% on Rt and 40-60% on left. US 01/2017 unchanged. US 07/2018 20- 40% RT and 60-80% left. US 07/2019 stable Hematuria 12/14/2015 09/18/2019 Overview: Urology w/u neg. Colon cancer screening 12/07/2015 9 Elevated fasting blood sugar 12/07/2015 documented as of this encounter (statuses as of 03/20/2023) [facility] History of Past illness Narrative* Problem Noted Date Resolved Date Protein deficiency 01/24/2021 09/20/2022 Overview: malnutrition Encounter for screening mammogram for breast can cer 12/26/2017 09/18/2019 Well adult exam 12/26/2016 09/18/2019 Overview: Last done: 12/31/2018 Pain in both hands 12/26/2016 09/18/2019 Bilateral carotid artery disease 12/20/2015 09/18/2019 Overview: US 12/2015: 20-40% on Rt and 40-60% on left. US 01/2017 unchanged. US 07/2018 20- 40% RT and 60-80% left. 07/2019 stable Hematuria 12/14/2015 09/18/2019 Overview: Urology w/u neg. Colon cancer screening 12/07/2015 9 Elevated fasting blood sugar 12/07/2015 documented as of this encounter (statuses as of 03/21/2023) [facility] History of Past illness Narrative* Problem Noted Date Resolved Date Protein deficiency 01/24/2021 09/20/2022 Overview: malnutrition Encounter for screening mammogram for breast can cer 12/26/2017 09/18/2019 Well adult exam 12/26/2016 09/18/2019 Overview: Last done: 12/31/2018 Pain in both hands 12/26/2016 09/18/2019 Bilateral carotid artery disease 12/20/2015 09/18/2019 Overview: US 12/2015: 20-40% on Rt and 40-60% on left. US 01/2017 unchanged. 07/2018 20- 40% RT and 60-80% left. 07/2019 stable Hematuria 12/14/2015 09/18/2019 Overview: Urology w/u neg. Colon cancer screening 12/07/2015 9 Elevated fasting blood sugar 12/07/2015 documented as of this encounter (statuses as of 03/22/2023) [facility] of Past illness Narrative* Problem Noted Date Resolved Date Protein deficiency 01/24/2021 09/20/2022 Overview: malnutrition Encounter for screening mammogram for breast can cer 12/26/2017 09/18/2019 Well adult exam 12/26/2016 09/18/2019 Overview: Last done: 12/31/2018 Pain in both hands 12/26/2016 09/18/2019 Bilateral carotid artery disease 12/20/2015 09/18/2019 Overview: US 12/2015: 20-40% on Rt and 40-60% on left. US 01/2017 unchanged. US 07/2018 20- 40% RT and 60-80% left. US 07/2019 stable Hematuria 12/14/2015 09/18/2019 Overview: Urology w/u neg. Colon cancer screening 12/07/2015 9 Elevated fasting blood sugar 12/07/2015 documented as of this encounter (statuses as of 03/25/2023) [facility] of Past illness Narrative* Problem Noted Date Resolved Date Protein deficiency 01/24/2021 09/20/2022 Overview: malnutrition Encounter for screening mammogram for breast can cer 12/26/2017 09/18/2019 Well adult exam 12/26/2016 09/18/2019 Overview: Last done: 12/31/2018 Pain in both hands 12/26/2016 09/18/2019 Bilateral carotid artery disease 12/20/2015 09/18/2019 Overview: US 12/2015: 20-40% on Rt and 40-60% on left. US 01/2017 unchanged. US 07/2018 20- 40% RT and 60-80% left. US 07/2019 stable Hematuria 12/14/2015 09/18/2019 Overview: Urology w/u neg. Colon cancer screening 12/07/2015 9 Elevated fasting blood sugar 12/07/2015 documented as of this encounter (statuses as of 03/28/2023) [facility] of Past illness Narrative* Problem Noted Date Resolved Date Protein deficiency 01/24/2021 09/20/2022 Overview: malnutrition Encounter for screening mammogram for breast can cer 12/26/2017 09/18/2019 Well adult exam 12/26/2016 09/18/2019 Overview: Last done: 12/31/2018 Pain in both hands 12/26/2016 09/18/2019 Bilateral carotid artery disease 12/20/2015 09/18/2019 Overview: US 12/2015: 20-40% on Rt and 40-60% on left. US 01/2017 unchanged. US 07/2018 20- 40% RT and 60-80% left. US 07/2019 stable Hematuria 12/14/2015 09/18/2019 Overview: Urology w/u neg. Colon cancer screening 12/07/2015 9 Elevated fasting blood sugar 12/07/2015 documented as of this encounter (statuses as of 03/28/2023) [facility] Past illness Narrative* Problem Noted Date Resolved Date Protein deficiency 01/24/2021 09/20/2022 Overview: malnutrition Encounter for screening mammogram for breast can cer 12/26/2017 09/18/2019 Well adult exam 12/26/2016 09/18/2019 Overview: Last done: 12/31/2018 Pain in both hands 12/26/2016 09/18/2019 Bilateral carotid artery disease 12/20/2015 09/18/2019 Overview: US 12/2015: 20-40% on Rt and 40-60% on left. US 01/2017 unchanged. 07/2018 20- 40% RT and 60-80% left. US 07/2019 stable Hematuria 12/14/2015 09/18/2019 Overview: Urology w/u neg. Colon cancer screening 12/07/2015 9 Elevated fasting blood sugar 12/07/2015 documented as of this encounter (statuses as of 03/29/2023) [facility] Past illness Narrative* Problem Noted Date Resolved Date Protein deficiency 01/24/2021 09/20/2022 Overview: malnutrition Encounter for screening mammogram for breast can cer 12/26/2017 09/18/2019 Well adult exam 12/26/2016 09/18/2019 Overview: Last done: 12/31/2018 Pain in both hands 12/26/2016 09/18/2019 Bilateral carotid artery disease 12/20/2015 09/18/2019 Overview: US 12/2015: 20-40% on Rt and 40-60% on left. US 01/2017 unchanged. US 07/2018 20- 40% RT and 60-80% left. US 07/2019 stable Hematuria 12/14/2015 09/18/2019 Overview: Urology w/u neg. Colon cancer screening 12/07/2015 9 Elevated fasting blood sugar 12/07/2015 documented as of this encounter (statuses as of 03/30/2023) [facility] Past illness Narrative* Problem Noted Date Resolved Date Protein deficiency 01/24/2021 09/20/2022 Overview: malnutrition Encounter for screening mammogram for breast can cer 12/26/2017 09/18/2019 Well adult exam 12/26/2016 09/18/2019 Overview: Last done: 12/31/2018 Pain in both hands 12/26/2016 09/18/2019 Bilateral carotid artery disease 12/20/2015 09/18/2019 Overview: US 12/2015: 20-40% on Rt and 40-60% on left. 01/2017 unchanged. 07/2018 20- 40% RT and 60-80% left. 07/2019 stable Hematuria 12/14/2015 09/18/2019 Overview: Urology w/u neg. Colon cancer screening 12/07/2015 9 Elevated fasting blood sugar 12/07/2015 documented as of this encounter (statuses as of 04/05/2023) [facility] Narrative* Problem Noted Date Resolved Date Protein deficiency 01/24/2021 09/20/2022 Overview: malnutrition Encounter for screening mammogram for breast can cer 12/26/2017 09/18/2019 Well adult exam 12/26/2016 09/18/2019 Overview: Last done: 12/31/2018 Pain in both hands 12/26/2016 09/18/2019 Bilateral carotid artery disease 12/20/2015 09/18/2019 Overview: US 12/2015: 20-40% on Rt and 40-60% on left. 01/2017 unchanged. 07/2018 20- 40% RT and 60-80% left. 07/2019 stable Hematuria 12/14/2015 09/18/2019 Overview: Urology w/u neg. Colon cancer screening 12/07/2015 9 Elevated fasting blood sugar 12/07/2015 documented as of this encounter (statuses as of 04/05/2023) [facility] Narrative* Problem Noted Date Resolved Date Protein deficiency 01/24/2021 09/20/2022 Overview: malnutrition Encounter for screening mammogram for breast can cer 12/26/2017 09/18/2019 Well adult exam 12/26/2016 09/18/2019 Overview: Last done: 12/31/2018 Pain in both hands 12/26/2016 09/18/2019 Bilateral carotid artery disease 12/20/2015 09/18/2019 Overview: US 12/2015: 20-40% on Rt and 40-60% on left. 01/2017 unchanged. 07/2018 20- 40% RT and 60-80% left. US 07/2019 stable Hematuria 12/14/2015 09/18/2019 Overview: Urology w/u neg. Colon cancer screening 12/07/2015 9 Elevated fasting blood sugar 12/07/2015 documented as of this encounter (statuses as of 04/12/2023) [facility]04-20[facility]21 History of Past illness Narrative* Problem Noted Date Diagnosed Date Resolved Date Protein deficiency 01/24/2021 Overview: malnutrition Encounter for screening mamm ogram for breast cancer 12/26/2017 09/18/2019 Well adult exam 12/26/2016 09/18/2019 Overview: Last done: 12/31/2018 Pain in both hands 12/26/2016 9 Bilateral carotid artery disease 12/20/2015 09/18/2019 Overview: US 12/2015: 20-40% on Rt and 40-60% on left. US 01/2017 unchanged. 07/2018 20- 40% RT and 60-80% left. 07/2019 stable Hematuria 12/14/2015 09/18/2019 Overview: Urology w/u neg. Colon cancer screening 12/07/201509/18 Elevated fasting blood sugar 12/07/2015 09/18/2019 documented as of this encounter (statuses as of 04/13/2023) [facility]04[facility] History of Past illness Narrative* Problem Noted Date Diagnosed Date Resolved Date Protein deficiency 01/24/2021 2 Overview: malnutrition Encounter for screening mamm ogram for breast cancer 12/26/2017 09/18/2019 Well adult exam 12/26/2016 09/18/2019 Overview: Last done: 12/31/2018 Pain in both hands 12/26/2016 9 Bilateral carotid artery disease 12/20/2015 09/18/2019 Overview: US 12/2015: 20-40% on Rt and 40-60% on left. US 01/2017 unchanged. US 07/2018 20- 40% RT and 60-80% left. US 07/2019 stable Hematuria 12/14/2015 09/18/2019 Overview: Urology w/u neg. Colon cancer screening 12/07/201509/18 Elevated fasting blood sugar 12/07/2015 09/18/2019 documented as of this encounter (statuses as of 04/13/2023) [facility] History of Past illness Narrative* Problem Noted Date Diagnosed Date Resolved Date Protein deficiency 01/24/2021 2 Overview: malnutrition Encounter for screening mamm ogram for breast cancer 12/26/2017 09/18/2019 Well adult exam 12/26/2016 09/18/2019 Overview: Last done: 12/31/2018 Pain in both hands 12/26/2016 9 Bilateral carotid artery disease 12/20/2015 09/18/2019 Overview: US 12/2015: 20-40% on Rt and 40-60% on left. US 01/2017 unchanged. US 07/2018 20- 40% RT and 60-80% left. US 07/2019 stable Hematuria 12/14/2015 09/18/2019 Overview: Urology w/u neg. Colon cancer screening 12/07/201509/18 Elevated fasting blood sugar 12/07/2015 09/18/2019 documented as of this encounter (statuses as of 04/19/2023) [facility] History of Past illness Narrative* Problem Noted Date Diagnosed Date Resolved Date Protein deficiency 01/24/2021 2 Overview: malnutrition Encounter for screening mamm ogram for breast cancer 12/26/2017 09/18/2019 Well adult exam 12/26/2016 09/18/2019 Overview: Last done: 12/31/2018 Pain in both hands 12/26/2016 9 Bilateral carotid artery disease 12/20/2015 09/18/2019 Overview: US 12/2015: 20-40% on Rt and 40-60% on left. US 01/2017 unchanged. US 07/2018 20- 40% RT and 60-80% left. US 07/2019 stable Hematuria 12/14/2015 09/18/2019 Overview: Urology w/u neg. Colon cancer screening 12/07/201509/18 Elevated fasting blood sugar 12/07/2015 09/18/2019 documented as of this encounter (statuses as of 04/20/2023) [facility] History of Past illness Narrative* Problem Noted Date Diagnosed Date Resolved Date Protein deficiency 01/24/2021 2 Overview: malnutrition Encounter for screening mamm ogram for breast cancer 12/26/2017 09/18/2019 Well adult exam 12/26/2016 09/18/2019 Overview: Last done: 12/31/2018 Pain in both hands 12/26/2016 9 Bilateral carotid artery disease 12/20/2015 09/18/2019 Overview: US 12/2015: 20-40% on Rt and 40-60% on left. US 01/2017 unchanged. 07/2018 20- 40% RT and 60-80% left. 07/2019 stable Hematuria 12/14/2015 09/18/2019 Overview: Urology w/u neg. Colon cancer screening 12/07/201509/18 Elevated fasting blood sugar 12/07/2015 09/18/2019 documented as of this encounter (statuses as of 04/21/2023) [facility] History of Past illness Narrative* Problem Noted Date Diagnosed Date Resolved Date Protein deficiency 01/24/2021 2 Overview: malnutrition Encounter for screening mamm ogram for breast cancer 12/26/2017 09/18/2019 Well adult exam 12/26/2016 09/18/2019 Overview: Last done: 12/31/2018 Pain in both hands 12/26/2016 9 Bilateral carotid artery disease 12/20/2015 09/18/2019 Overview: US 12/2015: 20-40% on Rt and 40-60% on left. US 01/2017 unchanged. US 07/2018 20- 40% RT and 60-80% left. US 07/2019 stable Hematuria 12/14/2015 09/18/2019 Overview: Urology w/u neg. Colon cancer screening 12/07/201509/18 Elevated fasting blood sugar 12/07/2015 09/18/2019 documented as of this encounter (statuses as of 04/21/2023) [facility] History of Past illness Narrative* Problem Noted Date Diagnosed Date Resolved Date Protein deficiency 01/24/2021 2 Overview: malnutrition Encounter for screening mamm ogram for breast cancer 12/26/2017 09/18/2019 Well adult exam 12/26/2016 09/18/2019 Overview: Last done: 12/31/2018 Pain in both hands 12/26/2016 9 Bilateral carotid artery disease 12/20/2015 09/18/2019 Overview: US 12/2015: 20-40% on Rt and 40-60% on left. US 01/2017 unchanged. US 07/2018 20- 40% RT and 60-80% left. US 07/2019 stable Hematuria 12/14/2015 09/18/2019 Overview: Urology w/u neg. Colon cancer screening 12/07/201509/18 Elevated fasting blood sugar 12/07/2015 09/18/2019 documented as of this encounter (statuses as of 04/23/2023) [facility] History of Past illness Narrative* Problem Noted Date Diagnosed Date Resolved Date Protein deficiency 01/24/2021 2 Overview: malnutrition Encounter for screening mamm ogram for breast cancer 12/26/2017 09/18/2019 Well adult exam 12/26/2016 09/18/2019 Overview: Last done: 12/31/2018 Pain in both hands 12/26/2016 9 Bilateral carotid artery disease 12/20/2015 09/18/2019 Overview: US 12/2015: 20-40% on Rt and 40-60% on left. US 01/2017 unchanged. US 07/2018 20- 40% RT and 60-80% left. US 07/2019 stable Hematuria 12/14/2015 09/18/2019 Overview: Urology w/u neg. Colon cancer screening 12/07/201509/18 Elevated fasting blood sugar 12/07/2015 09/18/2019 documented as of this encounter (statuses as of 04/23/2023) [facility] History of Past illness Narrative* Problem Noted Date Diagnosed Date Resolved Date Protein deficiency 01/24/2021 2 Overview: malnutrition Encounter for screening mamm ogram for breast cancer 12/26/2017 09/18/2019 Well adult exam 12/26/2016 09/18/2019 Overview: Last done: 12/31/2018 Pain in both hands 12/26/2016 9 Bilateral carotid artery disease 12/20/2015 09/18/2019 Overview: US 12/2015: 20-40% on Rt and 40-60% on left. US 01/2017 unchanged. US 07/2018 20- 40% RT and 60-80% left. US 07/2019 stable Hematuria 12/14/2015 09/18/2019 Overview: Urology w/u neg. Colon cancer screening 12/07/201509/18 Elevated fasting blood sugar 12/07/2015 09/18/2019 documented as of this encounter (statuses as of 04/24/2023) [facility] History of Past illness Narrative* Problem Noted Date Diagnosed Date Resolved Date Protein deficiency 01/24/2021 Overview: malnutrition Encounter for screening mamm ogram for breast cancer 12/26/2017 09/18/2019 Well adult exam 12/26/2016 09/18/2019 Overview: Last done: 12/31/2018 Pain in both hands 12/26/2016 9 Bilateral carotid artery disease 12/20/2015 09/18/2019 Overview: US 12/2015: 20-40% on Rt and 40-60% on left. US 01/2017 unchanged. US 07/2018 20- 40% RT and 60-80% left. US 07/2019 stable Hematuria 12/14/2015 09/18/2019 Overview: Urology w/u neg. Colon cancer screening 12/07/201509/18 Elevated fasting blood sugar 12/07/2015 09/18/2019 documented as of this encounter (statuses as of 05/24/2023) [facility] History of Past illness Narrative* Problem Noted Date Diagnosed Date Resolved Date Protein deficiency 01/24/2021 Overview: malnutrition Encounter for screening mamm ogram for breast cancer 12/26/2017 09/18/2019 Well adult exam 12/26/2016 09/18/2019 Overview: Last done: 12/31/2018 Pain in both hands 12/26/2016 9 Bilateral carotid artery disease 12/20/2015 09/18/2019 Overview: US 12/2015: 20-40% on Rt and 40-60% on left. 01/2017 unchanged. 07/2018 20- 40% RT and 60-80% left. 07/2019 stable Hematuria 12/14/2015 09/18/2019 Overview: Urology w/u neg. Colon cancer screening 12/07/201509/18 Elevated fasting blood sugar 12/07/2015 09/18/2019 documented as of this encounter (statuses as of 05/28/2023) [facility] History of Past illness Narrative* Problem Noted Date Diagnosed Date Resolved Date Protein deficiency 01/24/2021 Overview: malnutrition Encounter for screening mamm ogram for breast cancer 12/26/2017 09/18/2019 Well adult exam 12/26/2016 09/18/2019 Overview: Last done: 12/31/2018 Pain in both hands 12/26/2016 9 Bilateral carotid artery disease 12/20/2015 09/18/2019 Overview: US 12/2015: 20-40% on Rt and 40-60% on left. 01/2017 unchanged. 07/2018 20- 40% RT and 60-80% left. US 07/2019 stable Hematuria 12/14/2015 09/18/2019 Overview: Urology w/u neg. Colon cancer screening 12/07/201509/18 Elevated fasting blood sugar 12/07/2015 09/18/2019 documented as of this encounter (statuses as of 06/14/2023) [facility] History of Past illness Narrative* Problem Noted Date Diagnosed Date Resolved Date Protein deficiency 01/24/2021 Overview: malnutrition Encounter for screening mamm ogram for breast cancer 12/26/2017 09/18/2019 Well adult exam 12/26/2016 09/18/2019 Overview: Last done: 12/31/2018 Pain in both hands 12/26/2016 9 Bilateral carotid artery disease 12/20/2015 09/18/2019 Overview: US 12/2015: 20-40% on Rt and 40-60% on left. US 01/2017 unchanged. US 07/2018 20- 40% RT and 60-80% left. 07/2019 stable Hematuria 12/14/2015 09/18/2019 Overview: Urology w/u neg. Colon cancer screening 12/07/201509/18 Elevated fasting blood sugar 12/07/2015 09/18/2019 documented as of this encounter (statuses as of 06/15/2023) [facility] History of Past illness Narrative* Problem Noted Date Diagnosed Date Resolved Date Protein deficiency 01/24/2021 Overview: malnutrition Encounter for screening mamm ogram for breast cancer 12/26/2017 09/18/2019 Well adult exam 12/26/2016 09/18/2019 Overview: Last done: 12/31/2018 Pain in both hands 12/26/2016 9 Bilateral carotid artery disease 12/20/2015 09/18/2019 Overview: US 12/2015: 20-40% on Rt and 40-60% on left. US 01/2017 unchanged. 07/2018 20- 40% RT and 60-80% left. 07/2019 stable Hematuria 12/14/2015 09/18/2019 Overview: Urology w/u neg. Colon cancer screening 12/07/201509/18 Elevated fasting blood sugar 12/07/2015 09/18/2019 documented as of this encounter (statuses as of 07/16/2023) [facility] History of Past illness Narrative* Problem Noted Date Diagnosed Date Resolved Date Protein deficiency 01/24/2021 2 Overview: malnutrition Encounter for screening mamm ogram for breast cancer 12/26/2017 09/18/2019 Well adult exam 12/26/2016 09/18/2019 Overview: Last done: 12/31/2018 Pain in both hands 12/26/2016 9 Bilateral carotid artery disease 12/20/2015 09/18/2019 Overview: US 12/2015: 20-40% on Rt and 40-60% on left. US 01/2017 unchanged. US 07/2018 20- 40% RT and 60-80% left. US 07/2019 stable Hematuria 12/14/2015 09/18/2019 Overview: Urology w/u neg. Colon cancer screening 12/07/201509/18 Elevated fasting blood sugar 12/07/2015 09/18/2019 documented as of this encounter (statuses as of 07/19/2023) [facility] History of Past illness Narrative* Problem Noted Date Diagnosed Date Resolved Date Protein deficiency 01/24/2021 2 Overview: malnutrition Encounter for screening mamm ogram for breast cancer 12/26/2017 09/18/2019 Well adult exam 12/26/2016 09/18/2019 Overview: Last done: 12/31/2018 Pain in both hands 12/26/2016 9 Bilateral carotid artery disease 12/20/2015 09/18/2019 Overview: US 12/2015: 20-40% on Rt and 40-60% on left. US 01/2017 unchanged. US 07/2018 20- 40% RT and 60-80% left. US 07/2019 stable Hematuria 12/14/2015 09/18/2019 Overview: Urology w/u neg. Colon cancer screening 12/07/201509/18 Elevated fasting blood sugar 12/07/2015 09/18/2019 documented as of this encounter (statuses as of 07/19/2023) [facility] History of Past illness Narrative* Problem Noted Date Diagnosed Date Resolved Date Protein deficiency 01/24/2021 2 Overview: malnutrition Encounter for screening mamm ogram for breast cancer 12/26/2017 09/18/2019 Well adult exam 12/26/2016 09/18/2019 Overview: Last done: 12/31/2018 Pain in both hands 12/26/2016 9 Bilateral carotid artery disease 12/20/2015 09/18/2019 Overview: US 12/2015: 20-40% on Rt and 40-60% on left. US 01/2017 unchanged. US 07/2018 20- 40% RT and 60-80% left. US 07/2019 stable Hematuria 12/14/2015 09/18/2019 Overview: Urology w/u neg. Colon cancer screening 12/07/201509/18 Elevated fasting blood sugar 12/07/2015 09/18/2019 documented as of this encounter (statuses as of 07/23/2023) [facility] History of Past illness Narrative* Problem Noted Date Diagnosed Date Resolved Date Protein deficiency 01/24/2021 Overview: malnutrition Encounter for screening mamm ogram for breast cancer 12/26/2017 09/18/2019 Well adult exam 12/26/2016 09/18/2019 Overview: Last done: 12/31/2018 Pain in both hands 12/26/2016 9 Bilateral carotid artery disease 12/20/2015 09/18/2019 Overview: US 12/2015: 20-40% on Rt and 40-60% on left. US 01/2017 unchanged. US 07/2018 20- 40% RT and 60-80% left. US 07/2019 stable Hematuria 12/14/2015 09/18/2019 Overview: Urology w/u neg. Colon cancer screening 12/07/201509/18 Elevated fasting blood sugar 12/07/2015 09/18/2019 documented as of this encounter (statuses as of 07/25/2023) [facility] History of Past illness Narrative* Problem Noted Date Diagnosed Date Resolved Date Protein deficiency 01/24/2021 2 Overview: malnutrition Encounter for screening mamm ogram for breast cancer 12/26/2017 09/18/2019 Well adult exam 12/26/2016 09/18/2019 Overview: Last done: 12/31/2018 Pain in both hands 12/26/2016 9 Bilateral carotid artery disease 12/20/2015 09/18/2019 Overview: US 12/2015: 20-40% on Rt and 40-60% on left. US 01/2017 unchanged. US 07/2018 20- 40% RT and 60-80% left. US 07/2019 stable Hematuria 12/14/2015 09/18/2019 Overview: Urology w/u neg. Colon cancer screening 12/07/201509/18 Elevated fasting blood sugar 12/07/2015 09/18/2019 documented as of this encounter (statuses as of 08/01/2023) [facility] History of Past illness Narrative* Problem Noted Date Diagnosed Date Resolved Date Protein deficiency 01/24/2021 2 Overview: malnutrition Encounter for screening mamm ogram for breast cancer 12/26/2017 09/18/2019 Well adult exam 12/26/2016 09/18/2019 Overview: Last done: 12/31/2018 Pain in both hands 12/26/2016 9 Bilateral carotid artery disease 12/20/2015 09/18/2019 Overview: US 12/2015: 20-40% on Rt and 40-60% on left. US 01/2017 unchanged. US 07/2018 20- 40% RT and 60-80% left. US 07/2019 stable Hematuria 12/14/2015 09/18/2019 Overview: Urology w/u neg. Colon cancer screening 12/07/201509/18 Elevated fasting blood sugar 12/07/2015 09/18/2019 documented as of this encounter (statuses as of 08/10/2023) [facility] History of Past illness Narrative* Problem Noted Date Diagnosed Date Resolved Date Protein deficiency 01/24/2021 Overview: malnutrition Encounter for screening mamm ogram for breast cancer 12/26/2017 09/18/2019 Well adult exam 12/26/2016 09/18/2019 Overview: Last done: 12/31/2018 Pain in both hands 12/26/2016 9 Bilateral carotid artery disease 12/20/2015 09/18/2019 Overview: US 12/2015: 20-40% on Rt and 40-60% on left. US 01/2017 unchanged. US 07/2018 20- 40% RT and 60-80% left. 07/2019 stable Hematuria 12/14/2015 09/18/2019 Overview: Urology w/u neg. Colon cancer screening 12/07/201509/18 Elevated fasting blood sugar 12/07/2015 09/18/2019 documented as of this encounter (statuses as of 08/10/2023) [facility] History of Past illness Narrative* Problem Noted Date Diagnosed Date Resolved Date Protein deficiency 01/24/2021 2 Overview: malnutrition Encounter for screening mamm ogram for breast cancer 12/26/2017 09/18/2019 Well adult exam 12/26/2016 09/18/2019 Overview: Last done: 12/31/2018 Pain in both hands 12/26/2016 9 Bilateral carotid artery disease 12/20/2015 09/18/2019 Overview: US 12/2015: 20-40% on Rt and 40-60% on left. US 01/2017 unchanged. US 07/2018 20- 40% RT and 60-80% left. US 07/2019 stable Hematuria 12/14/2015 09/18/2019 Overview: Urology w/u neg. Colon cancer screening 12/07/201509/18 Elevated fasting blood sugar 12/07/2015 09/18/2019 documented as of this encounter (statuses as of 08/28/2023) [facility] History of Past illness Narrative* Problem Noted Date Diagnosed Date Resolved Date Protein deficiency 01/24/2021 Overview: malnutrition Encounter for screening mamm ogram for breast cancer 12/26/2017 09/18/2019 Well adult exam 12/26/2016 09/18/2019 Overview: Last done: 12/31/2018 Pain in both hands 12/26/2016 9 Bilateral carotid artery disease 12/20/2015 09/18/2019 Overview: US 12/2015: 20-40% on Rt and 40-60% on left. US 01/2017 unchanged. 07/2018 20- 40% RT and 60-80% left. US 07/2019 stable Hematuria 12/14/2015 09/18/2019 Overview: Urology w/u neg. Colon cancer screening 12/07/201509/18 Elevated fasting blood sugar 12/07/2015 09/18/2019 documented as of this encounter (statuses as of 09/26/2023) [facility] History of Past illness Narrative* Problem Noted Date Diagnosed Date Resolved Date Protein deficiency 01/24/2021 Overview: malnutrition Encounter for screening mamm ogram for breast cancer 12/26/2017 09/18/2019 Well adult exam 12/26/2016 09/18/2019 Overview: Last done: 12/31/2018 Pain in both hands 12/26/2016 9 Bilateral carotid artery disease 12/20/2015 09/18/2019 Overview: US 12/2015: 20-40% on Rt and 40-60% on left. 01/2017 unchanged. 07/2018 20- 40% RT and 60-80% left. 07/2019 stable Hematuria 12/14/2015 09/18/2019 Overview: Urology w/u neg. Colon cancer screening 12/07/201509/18 Elevated fasting blood sugar 12/07/2015 09/18/2019 documented as of this encounter (statuses as of 09/27/2023) [facility] History of Past illness Narrative* Problem Noted Date Diagnosed Date Resolved Date Protein deficiency 01/24/2021 Overview: malnutrition Encounter for screening mamm ogram for breast cancer 12/26/2017 09/18/2019 Well adult exam 12/26/2016 09/18/2019 Overview: Last done: 12/31/2018 Pain in both hands 12/26/2016 9 Bilateral carotid artery disease 12/20/2015 09/18/2019 Overview: US 12/2015: 20-40% on Rt and 40-60% on left. 01/2017 unchanged. 07/2018 20- 40% RT and 60-80% left. 07/2019 stable Hematuria 12/14/2015 09/18/2019 Overview: Urology w/u neg. Colon cancer screening 12/07/201509/18 Elevated fasting blood sugar 12/07/2015 09/18/2019 documented as of this encounter (statuses as of 11/09/2023) [facility] History of Past illness Narrative* Problem Noted Date Diagnosed Date Resolved Date Protein deficiency 01/24/2021 12/15/202 2 Overview: malnutrition Encounter for screening mamm ogram for breast cancer 12/26/2017 09/18/2019 Well adult exam 12/26/2016 09/18/2019 Overview: Last done: 12/31/2018 Pain in both hands 12/26/2016 9 Bilateral carotid artery disease 12/20/2015 09/18/2019 Overview: US 12/2015: 20-40% on Rt and 40-60% on left. US 01/2017 unchanged. US 07/2018 20- 40% RT and 60-80% left. US 07/2019 stable Hematuria 12/14/2015 09/18/2019 Overview: Urology w/u neg. Colon cancer screening 12/07/201509/18 Elevated fasting blood sugar 12/07/2015 09/18/2019 documented as of this encounter (statuses as of 11/11/2023) [facility] of Past illness Narrative* Problem Noted Date Diagnosed Date Resolved Date Protein deficiency 01/24/2021 2 Overview: malnutrition Encounter for screening mamm ogram for breast cancer 12/26/2017 09/18/2019 Well adult exam 12/26/2016 09/18/2019 Overview: Last done: 12/31/2018 Pain in both hands 12/26/2016 9 Bilateral carotid artery disease 12/20/2015 09/18/2019 Overview: US 12/2015: 20-40% on Rt and 40-60% on left. US 01/2017 unchanged. US 07/2018 20- 40% RT and 60-80% left. US 07/2019 stable Hematuria 12/14/2015 09/18/2019 Overview: Urology w/u neg. Colon cancer screening 12/07/201509/18 Elevated fasting blood sugar 12/07/2015 09/18/2019 documented as of this encounter (statuses as of 11/26/2023) [facility] of Past illness Narrative* Problem Noted Date Diagnosed Date Resolved Date Protein deficiency 01/24/2021 2 Overview: malnutrition Encounter for screening mamm ogram for breast cancer 12/26/2017 09/18/2019 Well adult exam 12/26/2016 09/18/2019 Overview: Last done: 12/31/2018 Pain in both hands 12/26/2016 9 Bilateral carotid artery disease 12/20/2015 09/18/2019 Overview: US 12/2015: 20-40% on Rt and 40-60% on left. US 01/2017 unchanged. US 07/2018 20- 40% RT and 60-80% left. US 07/2019 stable Hematuria 12/14/2015 09/18/2019 Overview: Urology w/u neg. Colon cancer screening 12/07/201509/18 Elevated fasting blood sugar 12/07/2015 09/18/2019 documented as of this encounter (statuses as of 11/26/2023) [facility] History of Past illness Narrative* Problem Noted Date Diagnosed Date Resolved Date Protein deficiency 01/24/2021 2 Overview: malnutrition Encounter for screening mamm ogram for breast cancer 12/26/2017 09/18/2019 Well adult exam 12/26/2016 09/18/2019 Overview: Last done: 12/31/2018 Pain in both hands 12/26/2016 9 Bilateral carotid artery disease 12/20/2015 09/18/2019 Overview: US 12/2015: 20-40% on Rt and 40-60% on left. US 01/2017 unchanged. US 07/2018 20- 40% RT and 60-80% left. 07/2019 stable Hematuria 12/14/2015 09/18/2019 Overview: Urology w/u neg. Colon cancer screening 12/07/201509/18 Elevated fasting blood sugar 12/07/2015 09/18/2019 documented as of this encounter (statuses as of 11/27/2023) [facility] of Past illness Narrative* Problem Noted Date Diagnosed Date Resolved Date Protein deficiency 01/24/2021 2 Overview: malnutrition Encounter for screening mamm ogram for breast cancer 12/26/2017 09/18/2019 Well adult exam 12/26/2016 09/18/2019 Overview: Last done: 12/31/2018 Pain in both hands 12/26/2016 9 Bilateral carotid artery disease 12/20/2015 09/18/2019 Overview: US 12/2015: 20-40% on Rt and 40-60% on left. US 01/2017 unchanged. US 07/2018 20- 40% RT and 60-80% left. US 07/2019 stable Hematuria 12/14/2015 09/18/2019 Overview: Urology w/u neg. Colon cancer screening 12/07/201509/18 Elevated fasting blood sugar 12/07/2015 09/18/2019 documented as of this encounter (statuses as of 11/27/2023) [facility] of Past illness Narrative* Problem Noted Date Diagnosed Date Resolved Date Protein deficiency 01/24/2021 2 Overview: malnutrition Encounter for screening mamm ogram for breast cancer 12/26/2017 09/18/2019 Well adult exam 12/26/2016 09/18/2019 Overview: Last done: 12/31/2018 Pain in both hands 12/26/2016 9 Bilateral carotid artery disease 12/20/2015 09/18/2019 Overview: US 12/2015: 20-40% on Rt and 40-60% on left. US 01/2017 unchanged. US 07/2018 20- 40% RT and 60-80% left. US 07/2019 stable Hematuria 12/14/2015 09/18/2019 Overview: Urology w/u neg. Colon cancer screening 12/07/201509/18 Elevated fasting blood sugar 12/07/2015 09/18/2019 documented as of this encounter (statuses as of 11/28/2023) [facility] of Past illness Narrative* Problem Noted Date Diagnosed Date Resolved Date Protein deficiency 01/24/2021 2 Overview: malnutrition Encounter for screening mamm ogram for breast cancer 12/26/2017 09/18/2019 Well adult exam 12/26/2016 09/18/2019 Overview: Last done: 12/31/2018 Pain in both hands 12/26/2016 9 Bilateral carotid artery disease 12/20/2015 09/18/2019 Overview: US 12/2015: 20-40% on Rt and 40-60% on left. US 01/2017 unchanged. US 07/2018 20- 40% RT and 60-80% left. US 07/2019 stable Hematuria 12/14/2015 09/18/2019 Overview: Urology w/u neg. Colon cancer screening 12/07/201509/18 Elevated fasting blood sugar 12/07/2015 09/18/2019 documented as of this encounter (statuses as of 11/29/2023) [facility] Past illness Narrative* Problem Noted Date Diagnosed Date Resolved Date Protein deficiency 01/24/2021 2 Overview: malnutrition Encounter for screening mamm ogram for breast cancer 12/26/2017 09/18/2019 Well adult exam 12/26/2016 09/18/2019 Overview: Last done: 12/31/2018 Pain in both hands 12/26/2016 9 Bilateral carotid artery disease 12/20/2015 09/18/2019 Overview: US 12/2015: 20-40% on Rt and 40-60% on left. US 01/2017 unchanged. US 07/2018 20- 40% RT and 60-80% left. US 07/2019 stable Hematuria 12/14/2015 09/18/2019 Overview: Urology w/u neg. Colon cancer screening 12/07/201509/18 Elevated fasting blood sugar 12/07/2015 09/18/2019 documented as of this encounter (statuses as of 11/29/2023) [facility] History of Past illness Narrative* Problem Noted Date Diagnosed Date Resolved Date Protein deficiency 01/24/2021 Overview: malnutrition Encounter for screening mamm ogram for breast cancer 12/26/2017 09/18/2019 Well adult exam 12/26/2016 09/18/2019 Overview: Last done: 12/31/2018 Pain in both hands 12/26/2016 9 Bilateral carotid artery disease 12/20/2015 09/18/2019 Overview: US 12/2015: 20-40% on Rt and 40-60% on left. US 01/2017 unchanged. US 07/2018 20- 40% RT and 60-80% left. US 07/2019 stable Hematuria 12/14/2015 09/18/2019 Overview: Urology w/u neg. Colon cancer screening 12/07/201509/18 Elevated fasting blood sugar 12/07/2015 09/18/2019 documented as of this encounter (statuses as of 12/06/2023) [facility] History of Past illness Narrative* Problem Noted Date Diagnosed Date Resolved Date Protein deficiency 01/24/2021 2 Overview: malnutrition Encounter for screening mamm ogram for breast cancer 12/26/2017 09/18/2019 Well adult exam 12/26/2016 09/18/2019 Overview: Last done: 12/31/2018 Pain in both hands 12/26/2016 9 Bilateral carotid artery disease 12/20/2015 09/18/2019 Overview: US 12/2015: 20-40% on Rt and 40-60% on left. US 01/2017 unchanged. 07/2018 20- 40% RT and 60-80% left. US 07/2019 stable Hematuria 12/14/2015 09/18/2019 Overview: Urology w/u neg. Colon cancer screening 12/07/201509/18 Elevated fasting blood sugar 12/07/2015 09/18/2019 documented as of this encounter (statuses as of 12/11/2023) [facility] History of Past illness Narrative* Problem Noted Date Diagnosed Date Resolved Date Protein deficiency 01/24/2021 Overview: malnutrition Encounter for screening mamm ogram for breast cancer 12/26/2017 09/18/2019 Well adult exam 12/26/2016 09/18/2019 Overview: Last done: 12/31/2018 Pain in both hands 12/26/2016 9 Bilateral carotid artery disease 12/20/2015 09/18/2019 Overview: US 12/2015: 20-40% on Rt and 40-60% on left. US 01/2017 unchanged. 07/2018 20- 40% RT and 60-80% left. US 07/2019 stable Hematuria 12/14/2015 09/18/2019 Overview: Urology w/u neg. Colon cancer screening 12/07/201509/18 Elevated fasting blood sugar 12/07/2015 09/18/2019 documented as of this encounter (statuses as of 12/12/2023) [facility] History of Past illness Narrative* Problem Noted Date Diagnosed Date Resolved Date Protein deficiency 01/24/2021 2 Overview: malnutrition Encounter for screening mamm ogram for breast cancer 12/26/2017 09/18/2019 Well adult exam 12/26/2016 09/18/2019 Overview: Last done: 12/31/2018 Pain in both hands 12/26/2016 9 Bilateral carotid artery disease 12/20/2015 09/18/2019 Overview: US 12/2015: 20-40% on Rt and 40-60% on left. 01/2017 unchanged. 07/2018 20- 40% RT and 60-80% left. US 07/2019 stable Hematuria 12/14/2015 09/18/2019 Overview: Urology w/u neg. Colon cancer screening 12/07/201509/18 Elevated fasting blood sugar 12/07/2015 09/18/2019 documented as of this encounter (statuses as of 12/17/2023) [facility] History of Past illness Narrative* Problem Noted Date Diagnosed Date Resolved Date Protein deficiency 01/24/2021 Overview: malnutrition Encounter for screening mamm ogram for breast cancer 12/26/2017 09/18/2019 Well adult exam 12/26/2016 09/18/2019 Overview: Last done: 12/31/2018 Pain in both hands 12/26/2016 9 Bilateral carotid artery disease 12/20/2015 09/18/2019 Overview: US 12/2015: 20-40% on Rt and 40-60% on left. US 01/2017 unchanged. 07/2018 20- 40% RT and 60-80% left. US 07/2019 stable Hematuria 12/14/2015 09/18/2019 Overview: Urology w/u neg. Colon cancer screening 12/07/201509/18 Elevated fasting blood sugar 12/07/2015 09/18/2019 documented as of this encounter (statuses as of 01/07/2024) [facility] History of Past illness Narrative* Problem Noted Date Diagnosed Date Resolved Date Protein deficiency 01/24/2021 2 Overview: malnutrition Encounter for screening mamm ogram for breast cancer 12/26/2017 09/18/2019 Well adult exam 12/26/2016 09/18/2019 Overview: Last done: 12/31/2018 Pain in both hands 12/26/2016 9 Bilateral carotid artery disease 12/20/2015 09/18/2019 Overview: US 12/2015: 20-40% on Rt and 40-60% on left. US 01/2017 unchanged. US 07/2018 20- 40% RT and 60-80% left. US 07/2019 stable Hematuria 12/14/2015 09/18/2019 Overview: Urology w/u neg. Colon cancer screening 12/07/201509/18 Elevated fasting blood sugar 12/07/2015 09/18/2019 documented as of this encounter (statuses as of 01/07/2024) [facility] History of Past illness Narrative* Problem Noted Date Diagnosed Date Resolved Date Protein deficiency 01/24/2021 2 Overview: malnutrition Encounter for screening mamm ogram for breast cancer 12/26/2017 09/18/2019 Well adult exam 12/26/2016 09/18/2019 Overview: Last done: 12/31/2018 Pain in both hands 12/26/2016 9 Bilateral carotid artery disease 12/20/2015 09/18/2019 Overview: US 12/2015: 20-40% on Rt and 40-60% on left. US 01/2017 unchanged. US 07/2018 20- 40% RT and 60-80% left. US 07/2019 stable Hematuria 12/14/2015 09/18/2019 Overview: Urology w/u neg. Colon cancer screening 12/07/201509/18 Elevated fasting blood sugar 12/07/2015 09/18/2019 documented as of this encounter (statuses as of 01/08/2024) [facility] History of Past illness Narrative* Problem Noted Date Diagnosed Date Resolved Date Protein deficiency 01/24/2021 Overview: malnutrition Encounter for screening mamm ogram for breast cancer 12/26/2017 09/18/2019 Well adult exam 12/26/2016 09/18/2019 Overview: Last done: 12/31/2018 Pain in both hands 12/26/2016 9 Bilateral carotid artery disease 12/20/2015 09/18/2019 Overview: US 12/2015: 20-40% on Rt and 40-60% on left. US 01/2017 unchanged. US 07/2018 20- 40% RT and 60-80% left. US 07/2019 stable Hematuria 12/14/2015 09/18/2019 Overview: Urology w/u neg. Colon cancer screening 12/07/201509/18 Elevated fasting blood sugar 12/07/2015 09/18/2019 documented as of this encounter (statuses as of 01/24/2024) [facility] History of Past illness Narrative* Problem Noted Date Resolved Date Encounter for screening mammogram for breast can cer 12/26/2017 09/18/2019 Well adult exam 12/26/2016 09/18/2019 Overview: Last done: 12/31/2018 Pain in both hands 12/26/2016 09/18/2019 Bilateral carotid artery disease 12/20/2015 09/18/2019 Overview: US 12/2015: 20-40% on Rt and 40-60% on left. US 01/2017 unchanged. US 07/2018 20- 40% RT and 60-80% left. US 07/2019 stable Hematuria 12/14/2015 09/18/2019 Overview: Urology w/u neg. Colon cancer screening 12/07/2015 9 Elevated fasting blood sugar 12/07/2015 documented as of this encounter (statuses as of 01/08/2022) [facility] History of Past illness Narrative* Problem Noted Date Resolved Date Encounter for screening mammogram for breast can cer 12/26/2017 09/18/2019 Well adult exam 12/26/2016 09/18/2019 Overview: Last done: 12/31/2018 Pain in both hands 12/26/2016 09/18/2019 Bilateral carotid artery disease 12/20/2015 09/18/2019 Overview: US 12/2015: 20-40% on Rt and 40-60% on left. US 01/2017 unchanged. US 07/2018 20- 40% RT and 60-80% left. US 07/2019 stable Hematuria 12/14/2015 09/18/2019 Overview: Urology w/u neg. Colon cancer screening 12/07/2015 9 Elevated fasting blood sugar 12/07/2015 documented as of this encounter (statuses as of 02/07/2022) [facility] History of Past illness Narrative* Problem Noted Date Resolved Date Encounter for screening mammogram for breast can cer 12/26/2017 09/18/2019 Well adult exam 12/26/2016 09/18/2019 Overview: Last done: 12/31/2018 Pain in both hands 12/26/2016 09/18/2019 Bilateral carotid artery disease 12/20/2015 09/18/2019 Overview: US 12/2015: 20-40% on Rt and 40-60% on left. US 01/2017 unchanged. US 07/2018 20- 40% RT and 60-80% left. US 07/2019 stable Hematuria 12/14/2015 09/18/2019 Overview: Urology w/u neg. Colon cancer screening 12/07/2015 9 Elevated fasting blood sugar 12/07/2015 documented as of this encounter (statuses as of 03/01/2022) [facility] History of Past illness Narrative* Problem Noted Date Resolved Date Encounter for screening mammogram for breast can cer 12/26/2017 09/18/2019 Well adult exam 12/26/2016 09/18/2019 Overview: Last done: 12/31/2018 Pain in both hands 12/26/2016 09/18/2019 Bilateral carotid artery disease 12/20/2015 09/18/2019 Overview: US 12/2015: 20-40% on Rt and 40-60% on left. US 01/2017 unchanged. US 07/2018 20- 40% RT and 60-80% left. 07/2019 stable Hematuria 12/14/2015 09/18/2019 Overview: Urology w/u neg. Colon cancer screening 12/07/2015 9 Elevated fasting blood sugar 12/07/2015 documented as of this encounter (statuses as of 03/22/2022) [facility] History of Past illness Narrative* Problem Noted Date Resolved Date Encounter for screening mammogram for breast can cer 12/26/2017 09/18/2019 Well adult exam 12/26/2016 09/18/2019 Overview: Last done: 12/31/2018 Pain in both hands 12/26/2016 09/18/2019 Bilateral carotid artery disease 12/20/2015 09/18/2019 Overview: US 12/2015: 20-40% on Rt and 40-60% on left. US 01/2017 unchanged. 07/2018 20- 40% RT and 60-80% left. 07/2019 stable Hematuria 12/14/2015 09/18/2019 Overview: Urology w/u neg. Colon cancer screening 12/07/2015 9 Elevated fasting blood sugar 12/07/2015 documented as of this encounter (statuses as of 05/07/2022) [facility] History of Past illness Narrative* Problem Noted Date Resolved Date Encounter for screening mammogram for breast can cer 12/26/2017 09/18/2019 Well adult exam 12/26/2016 09/18/2019 Overview: Last done: 12/31/2018 Pain in both hands 12/26/2016 09/18/2019 Bilateral carotid artery disease 12/20/2015 09/18/2019 Overview: US 12/2015: 20-40% on Rt and 40-60% on left. US 01/2017 unchanged. US 07/2018 20- 40% RT and 60-80% left. US 07/2019 stable Hematuria 12/14/2015 09/18/2019 Overview: Urology w/u neg. Colon cancer screening 12/07/2015 9 Elevated fasting blood sugar 12/07/2015 documented as of this encounter (statuses as of 06/07/2022) [facility] History of Past illness Narrative* Problem Noted Date Resolved Date Encounter for screening mammogram for breast can cer 12/26/2017 09/18/2019 Well adult exam 12/26/2016 09/18/2019 Overview: Last done: 12/31/2018 Pain in both hands 12/26/2016 09/18/2019 Bilateral carotid artery disease 12/20/2015 09/18/2019 Overview: US 12/2015: 20-40% on Rt and 40-60% on left. US 01/2017 unchanged. 07/2018 20- 40% RT and 60-80% left. US 07/2019 stable Hematuria 12/14/2015 09/18/2019 Overview: Urology w/u neg. Colon cancer screening 12/07/2015 9 Elevated fasting blood sugar 12/07/2015 documented as of this encounter (statuses as of 06/08/2022) [facility] History of Past illness Narrative* Problem Noted Date Resolved Date Encounter for screening mammogram for breast can cer 12/26/2017 09/18/2019 Well adult exam 12/26/2016 09/18/2019 Overview: Last done: 12/31/2018 Pain in both hands 12/26/2016 09/18/2019 Bilateral carotid artery disease 12/20/2015 09/18/2019 Overview: US 12/2015: 20-40% on Rt and 40-60% on left. US 01/2017 unchanged. 07/2018 20- 40% RT and 60-80% left. US 07/2019 stable Hematuria 12/14/2015 09/18/2019 Overview: Urology w/u neg. Colon cancer screening 12/07/2015 9 Elevated fasting blood sugar 12/07/2015 documented as of this encounter (statuses as of 06/22/2022) [facility] History of Past illness Narrative* Problem Noted Date Resolved Date Encounter for screening mammogram for breast can cer 12/26/2017 09/18/2019 Well adult exam 12/26/2016 09/18/2019 Overview: Last done: 12/31/2018 Pain in both hands 12/26/2016 09/18/2019 Bilateral carotid artery disease 12/20/2015 09/18/2019 Overview: US 12/2015: 20-40% on Rt and 40-60% on left. US 01/2017 unchanged. 07/2018 20- 40% RT and 60-80% left. 07/2019 stable Hematuria 12/14/2015 09/18/2019 Overview: Urology w/u neg. Colon cancer screening 12/07/2015 9 Elevated fasting blood sugar 12/07/2015 documented as of this encounter (statuses as of 06/22/2022) [facility] History of Past illness Narrative* Problem Noted Date Resolved Date Encounter for screening mammogram for breast can cer 12/26/2017 09/18/2019 Well adult exam 12/26/2016 09/18/2019 Overview: Last done: 12/31/2018 Pain in both hands 12/26/2016 09/18/2019 Bilateral carotid artery disease 12/20/2015 09/18/2019 Overview: US 12/2015: 20-40% on Rt and 40-60% on left. US 01/2017 unchanged. US 07/2018 20- 40% RT and 60-80% left. 07/2019 stable Hematuria 12/14/2015 09/18/2019 Overview: Urology w/u neg. Colon cancer screening 12/07/2015 9 Elevated fasting blood sugar 12/07/2015 documented as of this encounter (statuses as of 09/10/2022) [facility] Diagnosis Sinus bradycardia- Primary Other specified cardiac dysrhythmias Nonrheumatic aortic (valve) insufficiency Essential hypertension Unspecified essential hypertension Mixed hyperlipidemia [facility] Diagnosis Type 2 diabetes mellitus without complication, without long-term current use of insulin (HCC)- Primary Essential hypertension Unspecified essential hypertension Mixed hyperlipidemia Hypothyroidism (acquired) Unspecified hypothyroidism Bilateral carotid artery stenosis Occlusion and stenosis of carotid artery without mention of cerebral infarction Moderate aortic insufficiency Aortic valve disorders Agitation Other and unspecified special symptom or syndrome, not elsewhere classified Recurrent major depressive disorder, in remission (HCC) Essential tremor Essential and other specified forms of tremor Pain in joint, multiple sites Protein deficiency (HCC) Kwashiorkor Advance directive discussed with patient Other specified counseling Renal insufficiency Unspecified disorder of kidney and ureter Living will on file Encounter for screening mammogram for breast cancer Lymphocytic colitis Other and unspecified noninfectious gastroenteritis and colitis [facility] Diagnosis Lymphocytic colitis- Primary Other and unspecified noninfectious gastroenteritis and colitis Oral phase dysphagia Dysphagia, oral phase [facility] Diagnosis Epigastric pain- Primary Abdominal pain, epigastric Esophageal dysphagia Dysphagia, pharyngoesophageal phase [facility] Diagnosis Elevated LFTs- Primary Other abnormal blood chemistry [facility] Diagnosis Lymphocytic colitis- Primary Other and unspecified noninfectious gastroenteritis and colitis Dysphagia, unspecified type [facility] Diagnosis Subclavian artery aneurysm (HCC)- Primary Aneurysm of subclavian artery Bilateral carotid artery stenosis Occlusion and stenosis of carotid artery without mention of cerebral infarction [facility] Diagnosis Dysphagia, unspecified type [facility] Diagnosis Urgency of urination [facility] Diagnosis Overactive bladder- Primary Hypertonicity of bladder Urgency of urination [facility] Diagnosis Dizziness- Primary Dizziness and giddiness Gastritis without bleeding, unspecified chronicity, unspecified gastritis type Weight loss Loss of weight Hypothyroidism (acquired) Unspecified hypothyroidism Hypokalemia Hypopotassemia Hypomagnesemia Disorders of magnesium metabolism [facility] Diagnosis Hypothyroidism (acquired)- Primary Unspecified hypothyroidism [facility] Diagnosis Weight loss- Primary Loss of weight Decreased appetite Anorexia Nausea Nausea alone [facility] Diagnosis Cognitive impairment- Primary Unspecified persistent mental disorders due to conditions classified elsewhere Dementia without behavioral disturbance (HCC) Dementia, unspecified, without behavioral disturbance [facility] Diagnosis Dementia without behavioral disturbance (HCC)- Primary Dementia, unspecified, without behavioral disturbance Cognitive impairment Unspecified persistent mental disorders due to conditions classified elsewhere Abdominal pain, unspecified abdominal location Memory deficit Memory loss [facility] Diagnosis Hypothyroidism (acquired)- Primary Unspecified hypothyroidism [facility] Diagnosis Hypokalemia- Primary Hypopotassemia Failure to thrive in adult Adult failure to thrive Essential hypertension Unspecified essential hypertension Hypothyroidism (acquired) Unspecified hypothyroidism Stage 3a chronic kidney disease (HCC) Type 2 diabetes mellitus with stage 3a chronic kidney disease, without long-term current use of insulin (HCC) Unsteady gait Abnormality of gait [facility] this [facility] Diagnosis Advance directive discussed with patient- Primary Other specified counseling Hypokalemia Hypopotassemia Essential hypertension Unspecified essential hypertension Type 2 diabetes mellitus with stage 3a chronic kidney disease, without long-term current use of insulin (HCC) Stage 3a chronic kidney disease (HCC) Mixed hyperlipidemia Hypothyroidism (acquired) Unspecified hypothyroidism Ex-smoker Personal history of tobacco use, presenting hazards to health Osteoporosis without current pathological fracture, unspecified osteoporosis type Failure to thrive in adult Adult failure to thrive Dementia without behavioral disturbance (HCC) Dementia, unspecified, without behavioral disturbance [facility] Diagnosis Hypopotassemia- Primary documented in this encounter [facility] note* Diagnosis At risk for falling Personal history of fall documented in this encounter [facility] note* Diagnosis Cognitive impairment- Primary Unspecified persistent mental disorders due to conditions classified elsewhere documented in this encounter [facility] note* Diagnosis Lymphocytic colitis- Primary Other and unspecified noninfectious gastroenteritis and colitis Dysphagia, unspecified type Esophageal stricture Stricture and stenosis of esophagus documented in this encounter [facility] note* Diagnosis Dementia without behavioral disturbance (HCC)- Primary Dementia, unspecified, without behavioral disturbance Cognitive impairment Unspecified persistent mental disorders due to conditions classified elsewhere Depression, unspecified depression type Restlessness and agitation Other signs and symptoms involving emotional state documented in this encounter [facility] note* Diagnosis Dementia without behavioral disturbance (HCC)- Primary Dementia, unspecified, without behavioral disturbance Encounter for immunization Need for other specified prophylactic vaccination against single bacterial disease Family conflict Unspecified family circumstance documented in this encounter [facility] note* Diagnosis At risk for falling- Primary Personal history of fall Chronic bilateral low back pain with sciatica, sciatica laterality unspecified Decreased sensation of lower extremity Spinal stenosis, lumbar region, with neurogenic claudication Unsteady gait Abnormality of gait documented in this encounter [facility] note* Diagnosis Cognitive impairment, mild, so stated Mild cognitive impairment, so stated documented in this encounter [facility] note* Diagnosis Type 2 diabetes mellitus with stage 3a chronic kidney disease, without long-term current use of insulin (HCC)- Primary Diabetic eye exam ([facility]) Type II or unspecified type diabetes mellitus without mention of complication, not stated as uncontrolled Essential hypertension Unspecified essential hypertension Mixed hyperlipidemia Hypothyroidism (acquired) Unspecified hypothyroidism Bilateral carotid artery stenosis Occlusion and stenosis of carotid artery without mention of cerebral infarction Moderate aortic insufficiency Aortic valve disorders Stage 3a chronic kidney disease (HCC) Recurrent major depressive disorder, in remission (HCC) Agitation Other and unspecified special symptom or syndrome, not elsewhere classified Dementia without behavioral disturbance (HCC) Dementia, unspecified, without behavioral disturbance Essential tremor Essential and other specified forms of tremor Smoker Tobacco use disorder Pain in joint, multiple sites Memory deficit Memory loss Medication management Encounter for long-term (current) use of other medications Gastroesophageal reflux disease without esophagitis Esophageal reflux Primary insomnia Persistent disorder of initiating or maintaining sleep documented in this encounter [facility] note* Diagnosis Anterior chest wall pain- Primary 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 Dementia, unspecified dementia severity, unspecified dementia type, unspecified whether behavioral, psychotic, or mood disturbance or anxiety (HCC) documented in this encounter [facility] note* Diagnosis Overactive bladder- Primary Hypertonicity of bladder Urgency of urination documented in this encounter [facility] note* Diagnosis Cognitive impairment Unspecified persistent mental disorders due to conditions classified elsewhere Dementia without behavioral disturbance (HCC) Dementia, unspecified, without behavioral disturbance documented in this encounter [facility] note* Diagnosis Dementia, unspecified dementia severity, unspecified dementia type, unspecified whether behavioral, psychotic, or mood disturbance or anxiety (HCC)- Primary Hypotension, unspecified hypotension type Dizziness Dizziness and giddiness Lightheadedness Dizziness and giddiness Left-sided chest wall pain Painful respiration documented in this encounter [facility] note* Diagnosis Recurrent major depressive disorder, in remission ([facility])- Primary Falls frequently Personal history of fall Balance problem Other symptoms involving nervous and musculoskeletal systems Dementia without behavioral disturbance (HCC) Dementia, unspecified, without behavioral disturbance Essential hypertension Unspecified essential hypertension Hypothyroidism (acquired) Unspecified hypothyroidism Stage 3a chronic kidney disease ([facility]) Encounter for immunization Need for other specified prophylactic vaccination against single bacterial disease documented in this encounter [facility] note* Diagnosis Senile dementia, uncomplicated (HCC)- Primary Senile dementia, uncomplicated documented in this encounter [facility] note* Diagnosis Urgency of urination- Primary [facility] Diagnosis Weight loss Loss of weight Decreased appetite Anorexia Nausea Nausea alone documented in this encounter [facility] note* Diagnosis Lumbar back pain Lumbago Neck pain Cervicalgia [facility] Diagnosis Acute bilateral low back pain without sciatica- Primary Left hip pain Pain in joint, pelvic region and thigh Spinal stenosis, lumbar region, with neurogenic claudication Decreased sensation of lower extremity Vertigo Dizziness and giddiness Encounter for immunization Need for other specified prophylactic vaccination against single bacterial disease [facility] Diagnosis Acute bilateral low back pain without sciatica Left hip pain Pain in joint, pelvic region and thigh [facility]* Visit Details Visit Type -SN SOC Discipline -Prison Problems Problem Description Start Date Status Goals Interve ntions Medication Education Disciplines: Skilled Services 03/07/2023 Active 1 goal linked to scheduled/documen gonzalez intervention 1 goal intervention scheduled/document ed in this visit Sepsis Disciplines: Skilled Services 03/07/2023 Active 1 goal linked to scheduled/documen gonzalez intervention 1 goal intervention scheduled/document ed in this visit Declined Referral Disciplines: Skilled Services 03/07/2023 Active 1 goal linked to scheduled/documen gonzalez intervention 1 goal intervention scheduled/document ed in this visit Physician Specific Parameters Disciplines: Skilled Services 03/07/2023 Active 1 goal linked to scheduled/documen gonzalez intervention 1 goal intervention scheduled/document ed in this visit Risk for Falls Disciplines: Skilled Services 03/07/2023 Active 1 goal linked to scheduled/documen gonzalez intervention 1 goal intervention scheduled/document ed in this visit Pain Disciplines: Skilled Services 03/07/2023 Active 1 goal linked to scheduled/documen gonzalez intervention 1 goal intervention scheduled/document ed in this visit Nutrition/Hydration Disciplines: Skilled Services 03/07/2023 Active 1 goal linked to scheduled/documen gonzalez intervention 1 goal intervention scheduled/document ed in this visit Discharge Disciplines: Skilled Services 03/07/2023 Active 1 goal linked to scheduled/documen gonzalez intervention 1 goal intervention scheduled/document ed in this visit Advance Directives Disciplines: Skilled Services 03/07/2023 Active 1 goal linked to scheduled/documen gonzalez intervention 1 goal intervention scheduled/document ed in this visit SN Cardiovascular Condition Disciplines: SN 03/07/2023 Active 1 goal linked to scheduled/documen gonzalez intervention 1 goal intervention scheduled/document ed in this visit SN Learning Assessment Disciplines: SN 03/07/2023 Active 1 goal linked to scheduled/documen gonzalez intervention 1 goal intervention scheduled/document ed in this visit SN Genitourinary disease process Disciplines: SN 03/07/2023 Active 1 goal linked to scheduled/documen gonzalez intervention 1 goal intervention scheduled/document ed in this visit SN Muscuoskeltal Disease Process Disciplines: SN 03/07/2023 Active 1 goal linked to scheduled/documen gonzalez intervention 1 goal intervention scheduled/document ed in this visit Goals Goal Associated Problem Outcome Goal Met? Visit Notes Patient/caregiver will demonstrate ability to obtain, store, identify and administer ordered medications, keep accurate medication list in home, and adhere to medication schedule Description: Patient/caregiver will demonstrate ability to obtain, store, identify and administer ordered medications, keep accurate medication list in home, and adhere to medication schedule by 05/05/23. Medication Education No Patient/caregiver will be able to identify and report symptoms of sepsis Description: Patient/caregiver will be able to identify signs/symptoms of sepsis infection and will verbalize actions to take if suspected by 05/05/23. Sepsis No Patient has declined referred services Declined Referral No Patient to maintain parameters within physician-specified ranges throughout certification period Physician Specific Parameters No Manage Risk for falls Description: Patient/caregiver will verbalize knowledge of individualized fall prevention strategies by 05/05/23. Risk for Falls No Manage Pain Description: Patient/caregiver will verbalize knowledge and understanding of appropriate techniques to control pain, including pain medication and non-pharmacological techniques. Patient will verbalize or demonstrate an acceptable level of pain as evidenced by a pain score of 0/10 and improvement in ability to perform activities of daily living to be achieved by 05/05/23. Pain No Manage Nutrition/Hydration Description: Patient/caregiver will verbalize/demonstrate knowledge of prescribed diet and/or healthy nutrition to be achieved by 05/05/23. Nutrition/Hydration No Manage discharge planning Description: Patient/caregiver will verbalize understanding of ongoing discharge plan provided related to disease management, arrangements for outpatient and/or community services, obtaining medications, supplies, and DME, as needed throughout certification period. Discharge No Patient/caregiver will make healthcare providers aware of and any changes to Advance Directives throughout certification period Advance Directives No Improved management of cardiovascular disease Description: Improve patient/caregiver management of cardiac disease as evidenced by patient/caregiver ability to teach back cardiac management strategies by 05/05/23. SN Cardiovascular Condition No Demonstrate understanding of education Description: Patient and/or caregiver will verbalize understanding of educational instruction provided throughout certification period. SN Learning Assessment No Patient/Caregiver will verbalize understanding and demonstrate improved management of genitourinary disease/condition. Description: Patient/Caregiver will state understanding of genitourinary disease/condition and be able to teach back management strategies by 05/05/23. SN Genitourinary disease process No Patient will verbalize understanding of Musculoskeletal disease process, terminal operator effects and effective management strategies Description: Patient will verbalize understanding of Musculoskeletal disease process, usp effects and effective management strategies by 05/05/23. SN Muscuoskeltal Disease Process No Interventions Intervention Associated Problem/Goal Status Variance Visit Notes Medication Education Description: Evaluate/instruct patient/caregiver on obtaining, storing, identifying and administering ordered medications as well as keeping accurate medication list in the home and adhereing to medication schedule Problem:Medication Education Goal:Patient/caregive r will demonstrate ability to obtain, store, identify and administer ordered medications, keep accurate medication list in home, and adhere to medication schedule Completed Patient instructed on importance of keeping accurate medication list in home, adhering to medication schedule, proper storage of medications, Medication, route, dose, frequency, purpose, and side effects of medications, disposing of old and out of date medications, how to order refills, med sr. merchandise planner set up and med diary and reminders. Risk of Sepsis Description: Patient is at risk for sepsis. Monitor closely for s/s of sepsis. 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 Kurt Saravia MD if pulse ox is <92% at rest. Problem:Physician Specific Parameters Goal:Patient to maintain parameters within physician-specified ranges throughout certification period Completed Instruct on individual fall risk factors and strategies to prevent falls and injuries caused by falls. Problem:Risk for Falls Goal:Manage Risk for falls Completed SN: Patient instructed on Managing Impaired Functional Mobility: Use assistive device(s): front wheeled walker Managing Pain: Recommended pain medication schedule and management of side effects to minimize fall risk Reducing Medication Risks: Recommended medication schedule and instructed on management of side effects to minimize fall risk and injuries caused by falls Instruct on pain and instruct on strategies to control pain Problem:Pain Goal:Manage Pain Completed patient instructed on techniques to control pain including Pharmacological measures and Non-Pharmacological measures; rest, positioning/elevation , mobility/therapeutic exercise, distraction and breathing/relaxation. Define patient s appetite/hydration status and implement strategies to improve compliance with prescribed diet and/or healthy nutrition. Problem:Nutrition/Hyd ration Goal:Manage Nutrition/Hydration Completed instructed patient on implementing strategies to comply with prescribed diet, healthy nutrition and adequate hydration Instruct on ongoing discharge plan Problem:Discharge Goal:Manage discharge planning Completed Ongoing Discharge plan: Discharge plan discussed with patient including frequency and duration for home SN and plan for transition to: live independently at home without ongoing services. Determine patient's Advance Directive Status Description: Patient does not have advance directives. Patient/Caregiver declined Advance Directive information. Problem:Advance Directives Goal:Patient/caregive r will make healthcare providers aware of and any changes to Advance Directives throughout certification period Completed Discussed Advance Directives with Patient and/or Caregiver. Referred patient to Home Care handbook for further information on Healthcare DPOA & Living Will. Instruct on cardiovascular disease process and management of condition Description: Patient has following cardiac diagnosis(es): Hypertension. Problem:SN Cardiovascular Condition Goal:Improved management of cardiovascular disease Completed patient instructed on cardiac disease process, self monitoring & symptom reporting, DVT/PE prevention and Cardiac Diet. Instruct and educate on knowledge deficits Problem:SN Learning Assessment Goal:Demonstrate understanding of education Completed patient verbalize and/or demonstrate understanding of nursing education completed today. Education methods include: verbal cues. Further education required to improve knowledge and compliance with cardiac disease management, diabetic care management, fall prevention/home safety strategies, genitourinary care management, infection control precautions, medication management, nutrition and orthopedic condition management. Incontinence- Instruct Patient/Caregiver on measures to manage urinary incontinence Problem:SN Genitourinary disease process Goal:Patient/Caregive r will verbalize understanding and demonstrate improved management of genitourinary disease/condition. Completed patient instructed on measures to manage Urinary incontinence including: use of pads/protective garments, scheduled bathroom trips, skin care after incontinence episode and use of barrier cream. Assess/Instruct Patient/Caregiver understanding of Musculoskeletal disease process Description: Assess patient/caregiver understanding of musculoskeletal disease process osteoarthritis, usp effects and effective management strategies. Problem:SN Muscuoskeltal Disease Process Goal:Patient will verbalize understanding of Musculoskeletal disease process, usp effects and effective management strategies Completed Patient instructed on musculoskeletal disease process including: usp effects, effective management strategies and signs and symptoms of exacerbation of disease and actions to take should they occur. [facility] Visit Details Visit Type -PT EVAL Discipline -Physical Therapy Problems Problem Description Start Date Status Goals Interve ntions Medication Education Disciplines: Skilled Services 03/07/2023 Active 1 goal linked to scheduled/document ed intervention 1 goal intervention scheduled/document ed in this visit Sepsis Disciplines: Skilled Services 03/07/2023 Active 1 goal linked to scheduled/document ed intervention 1 goal intervention scheduled/document ed in this visit PT Referral Disciplines: Skilled Services 03/07/2023 Resolved on 03/08/2023 1 goal linked to scheduled/document ed intervention 1 goal intervention scheduled/document ed in this visit Physician Specific Parameters Disciplines: Skilled Services 03/07/2023 Active 1 goal linked to scheduled/document ed intervention 1 goal intervention scheduled/document ed in this visit Risk for Falls Disciplines: Skilled Services 03/07/2023 Active 1 goal linked to scheduled/document ed intervention 1 goal intervention scheduled/document ed in this visit Pain Disciplines: Skilled Services 03/07/2023 Active 1 goal linked to scheduled/document ed intervention 1 goal intervention scheduled/document ed in this visit Nutrition/Hydr ation Disciplines: Skilled Services 03/07/2023 Active 1 goal linked to scheduled/document ed intervention 1 goal intervention scheduled/document ed in this visit High Risk Medications Disciplines: Skilled Services 03/07/2023 Active 1 goal linked to scheduled/document ed intervention 1 goal intervention scheduled/document ed in this visit Discharge Disciplines: Skilled Services 03/07/2023 Active 1 goal linked to scheduled/document ed intervention 1 goal intervention scheduled/document ed in this visit Advance Directives Disciplines: Skilled Services 03/07/2023 Resolved on 03/08/2023 1 goal linked to scheduled/document ed intervention 1 goal intervention scheduled/document ed in this visit PT Impaired mobility Disciplines: PT 03/08/2023 Active 1 goal linked to scheduled/document ed intervention 1 goal intervention scheduled/document ed in this visit PT Impaired gait Disciplines: PT 03/08/2023 Active 1 goal linked to scheduled/document ed intervention 1 goal intervention scheduled/document ed in this visit PT Impaired balance Disciplines: PT 03/08/2023 Active 1 goal linked to scheduled/document ed intervention 1 goal intervention scheduled/document ed in this visit PT Learning Assessment Disciplines: PT 03/08/2023 Active 1 goal linked to scheduled/document ed intervention 1 goal intervention scheduled/document ed in this visit Goals Goal Associated Problem Outcome Goal Met? Visit Notes Patient/caregiver will demonstrate ability to obtain, store, identify and administer ordered medications, keep accurate medication list in home, and adhere to medication schedule Description: Patient/caregiver will demonstrate ability to obtain, store, identify and administer ordered medications, keep accurate medication list in home, and adhere to medication schedule by 05/05/23. Medication Education No Patient/caregiver will be able to identify and report symptoms of sepsis Description: Patient/caregiver will be able to identify signs/symptoms of sepsis infection and will verbalize actions to take if suspected by 05/05/23. Sepsis No Patient will be referred to additional discipline as needed PT Referral Completed Yes Patient to maintain parameters within physician-specified ranges throughout certification period Physician Specific Parameters No Manage Risk for falls Description: Patient/caregiver will verbalize knowledge of individualized fall prevention strategies by 05/05/23. Risk for Falls No Manage Pain Description: Patient/caregiver will verbalize knowledge and understanding of appropriate techniques to control pain, including pain medication and non-pharmacological techniques. Patient will verbalize or demonstrate an acceptable level of pain as evidenced by a pain score of 0/10 and improvement in ability to perform activities of daily living to be achieved by 05/05/23. Pain No Manage Nutrition/Hydration Description: Patient/caregiver will verbalize/demonstrate knowledge of prescribed diet and/or healthy nutrition to be achieved by 05/05/23. Nutrition/Hydration No Patient/caregiver will teach back high risk medication side effect and precaution education High Risk Medications No Manage discharge planning Description: Patient/caregiver will verbalize understanding of ongoing discharge plan provided related to disease management, arrangements for outpatient and/or community services, obtaining medications, supplies, and DME, as needed throughout certification period. Discharge No Patient/caregiver will make healthcare providers aware of and any changes to Advance Directives throughout certification period Advance Directives Completed Yes Improved Transfers Description: STG: Patient will demonstrate safe transfers to/from bed, chair and couch independently with AD, to be achieved by 03/30/23. PT Impaired mobility No Improved Gait Description: salvage determiner goal: Patient will demonstrate improved gait ability as evidenced by ambulation 200 feet with least restrictive AD independently, to return to safe household and community ambulation, to be achieved by04/06/23. PT Impaired gait No Improved Balance Description: salvage determiner goal: Patient will demonstrate improved standingbalance and functional ability as evidenced by TUG score </=14 sec, to be achieved by 04/06/23. PT Impaired balance No Demonstrate understanding of education Description: Patient and/or caregiver will understand educational instruction to be achieved by 04/06/23. PT Learning Assessment No Interventions Intervention Associated Problem/Goal Status Variance Visit Notes Medication Education Description: Evaluate/instruct patient/caregiver on obtaining, storing, identifying and administering ordered medications as well as keeping accurate medication list in the home and adhereing to medication schedule Problem:Medication Education Goal:Patient/caregiv er will demonstrate ability to obtain, store, identify and administer ordered medications, keep accurate medication list in home, and adhere to medication schedule Completed Medication Review - Electronic medical record reviewed and accurate list of medications is in the home. - Reviewed and educated patient on each medication noted on D/C Medication Profile/List - Educated patient on the need to discuss any medication changes with MD prior to initiating due to risk factors that come with self medicating Risk of Sepsis Description: Patient is at risk for sepsis. Monitor closely for s/s of sepsis. Problem:Sepsis Goal:Patient/caregiv er will be able to identify and report symptoms of sepsis Completed PT evaluation and treatment Description: Evaluate and treat for the assessment of functional deficits and establishment of appropriate interventions and education, including recommendations for functional mobility training, balance training for fall reduction, and strengthening. Problem:PT Referral Goal:Patient will be referred to additional discipline as needed Completed SPO2 Description: Notify Dr. Kurt Saravia MD if pulse ox is <92% at rest. Problem:Physician Specific Parameters Goal:Patient to maintain parameters within physician-specified ranges throughout certification period Completed Instruct on individual fall risk factors and strategies to prevent falls and injuries caused by falls. Problem:Risk for Falls Goal:Manage Risk for falls Completed PT: Patient instructed on Eliminating Environmental Hazards: Keep pathways clear, Remove unsafe rugs, Keep rooms and walkways well lit, Wear supportive shoes or non-skid socks and Keep frequently used items within reach Managing Impaired Functional Mobility: Use assistive device(s): rollator and Caregiver to provide assist with: Ambulation, Steps, Transfers and ADL/IADLs Managing Pain Reducing Medication Risks: Recommended medication schedule and instructed on management of side effects to minimize fall risk and injuries caused by falls Instruct on pain and instruct on strategies to control pain Problem:Pain Goal:Manage Pain Completed patient and caregiver instructed on techniques to control pain including Pharmacological measures and Non-Pharmacological measures; rest, positioning/elevation, mobility/therapeutic exercise, use of DME/assistive devices and use of thermal modalities, apply ice/heat to affected area for the following prescribed frequency: as needed- 20 min on/40 min off. Define patient s appetite/hydration status and implement strategies to improve compliance with prescribed diet and/or healthy nutrition. Problem:Nutrition/Hy dration Goal:Manage Nutrition/Hydration Completed reinforced patient and caregiver on implementing strategies to comply with prescribed diet, healthy nutrition and adequate hydration Antiplatelet- educated on high risk medication Problem:High Risk Medications Goal:Patient/caregiv er will teach back high risk medication side effect and precaution education Completed patient educated on taking medication(s) as prescribed by provider. Do not stop medication or alter doses without speaking with your provider. Discuss medication effectiveness or side effect concerns with your provider and home care team. Discuss all medications you are taking, even [id number] medicines, with your provider and pharmacist since many drugs can interact with antiplatelet medications. If you forget to take a dose, DO NOT take a double dose. Take the missed dose as soon as possible on the same day. DO NOT take a double dose the next day to make up for the missed dose. Watch for signs of abnormal or excessive bleeding and bruising (refer to Bleeding Precautions education). Call your health care provider right away if you suspect something is wrong. Instruct on ongoing discharge plan Problem:Discharge Goal:Manage discharge planning Completed Ongoing Discharge plan: Discharge plan discussed with patient including frequency and duration for home PT and plan for transition to: caregiver assistance. Determine patient's Advance Directive Status Description: Patient does not have advance directives. Patient/Caregiver declined Advance Directive information. Problem:Advance Directives Goal:Patient/caregiv er will make healthcare providers aware of and any changes to Advance Directives throughout certification period Completed Discussed Advance Directives with Patient and/or Caregiver. Referred patient to Home Care handbook for further information on Healthcare DPOA & Living Will. Physical Therapy Transfer Training Problem:PT Impaired mobility Goal:Improved Transfers Completed Transfer training and instruction to patient on safe transfers: -To and from chair for sit to stand Training Include proper hand placement, proper use of assist device with transition but not during transfer, proper glut and lower extremity positioning for optimal safety. Educated patient on the need to control transfer and to not utilize momentum improperly. Training for proper use of brakes on rollator- requires >75% cueing currently Physical Therapy Gait Training Problem:PT Impaired gait Goal:Improved Gait Completed 30 foot ambulation bout with use of rollator shows much improve stability and gait mechanics. Patient reports feeling of increased stability- educated on turning slowly and limiting quick head movements to decrease dizziness when ambulating. Encouraged use of rollator at all times Physical Therapy Balance Training Problem:PT Impaired balance Goal:Improved Balance Completed TUG testing performance to challenge and assess dynamic functional mobility for basic gait/stair negotiation and community re-entry Discussion of recent results of TUG testing in relation to normative values and increased fall risk with those scoring >13.5 seconds to reinforce recommendation to use AD for increased safety during ambulation. Instruct and educate on knowledge deficits Problem:PT Learning Assessment Goal:Demonstrate understanding of education Completed patient verbalize and/or demonstrate understanding of physical therapy education including pain management, fall prevention strategies, home safety and functional activity. Education methods include: verbal cues, tactile cues, written instructions, visual cues and teach back. Further education required to improve knowledge and compliance with home exercise program and all. documented in this encounter [facility] home Plan of care note* Visit Details Visit Type -SN ROUTINE Discipline -Prison Problems Problem Description Start Date Status Goals Interve ntions Medication Education Disciplines: Skilled Services 03/07/2023 Active 1 goal linked to scheduled/documen gonzalez intervention 1 goal intervention scheduled/document ed in this visit Sepsis Disciplines: Skilled Services 03/07/2023 Active 1 goal linked to scheduled/documen gonzalez intervention 1 goal intervention scheduled/document ed in this visit Physician Specific Parameters Disciplines: Skilled Services 03/07/2023 Active 1 goal linked to scheduled/documen gonzalez intervention 1 goal intervention scheduled/document ed in this visit Risk for Falls Disciplines: Skilled Services 03/07/2023 Active 1 goal linked to scheduled/documen gonzalez intervention 1 goal intervention scheduled/document ed in this visit Pain Disciplines: Skilled Services 03/07/2023 Active 1 goal linked to scheduled/documen gonzalez intervention 1 goal intervention scheduled/document ed in this visit Nutrition/Hydration Disciplines: Skilled Services 03/07/2023 Active 1 goal linked to scheduled/documen gonzalez intervention 1 goal intervention scheduled/document ed in this visit High Risk Medications Disciplines: Skilled Services 03/07/2023 Active 1 goal linked to scheduled/documen gonzalez intervention 1 goal intervention scheduled/document ed in this visit Discharge Disciplines: Skilled Services 03/07/2023 Active 1 goal linked to scheduled/documen gonzalez intervention 1 goal intervention scheduled/document ed in this visit SN Cardiovascular Condition Disciplines: SN 03/07/2023 Active 1 goal linked to scheduled/documen gonzalez intervention 1 goal intervention scheduled/document ed in this visit SN Learning Assessment Disciplines: SN 03/07/2023 Active 1 goal linked to scheduled/documen gonzalez intervention 1 goal intervention scheduled/document ed in this visit SN Genitourinary disease process Disciplines: 03/07/2023 Active 1 goal linked to scheduled/documen gonzalez intervention 1 goal intervention scheduled/document ed in this visit SN Muscuoskeltal Disease Process Disciplines: 03/07/2023 Active 1 goal linked to scheduled/documen gonzalez intervention 1 goal intervention scheduled/document ed in this visit Goals Goal Associated Problem Outcome Goal Met? Visit Notes Patient/caregiver will demonstrate ability to obtain, store, identify and administer ordered medications, keep accurate medication list in home, and adhere to medication schedule Description: Patient/caregiver will demonstrate ability to obtain, store, identify and administer ordered medications, keep accurate medication list in home, and adhere to medication schedule by 05/05/23. Medication Education No Patient/caregiver will be able to identify and report symptoms of sepsis Description: Patient/caregiver will be able to identify signs/symptoms of sepsis infection and will verbalize actions to take if suspected by 05/05/23. Sepsis No Patient to maintain parameters within physician-specified ranges throughout certification period Physician Specific Parameters No Manage Risk for falls Description: Patient/caregiver will verbalize knowledge of individualized fall prevention strategies by 05/05/23. Risk for Falls No Manage Pain Description: Patient/caregiver will verbalize knowledge and understanding of appropriate techniques to control pain, including pain medication and non-pharmacological techniques. Patient will verbalize or demonstrate an acceptable level of pain as evidenced by a pain score of 0/10 and improvement in ability to perform activities of daily living to be achieved by 05/05/23. Pain No Manage Nutrition/Hydration Description: Patient/caregiver will verbalize/demonstrate knowledge of prescribed diet and/or healthy nutrition to be achieved by 05/05/23. Nutrition/Hydration No Patient/caregiver will teach back high risk medication side effect and precaution education High Risk Medications No Manage discharge planning Description: Patient/caregiver will verbalize understanding of ongoing discharge plan provided related to disease management, arrangements for outpatient and/or community services, obtaining medications, supplies, and DME, as needed throughout certification period. Discharge No Improved management of cardiovascular disease Description: Improve patient/caregiver management of cardiac disease as evidenced by patient/caregiver ability to teach back cardiac management strategies by 05/05/23. SN Cardiovascular Condition No Demonstrate understanding of education Description: Patient and/or caregiver will verbalize understanding of educational instruction provided throughout certification period. SN Learning Assessment No Patient/Caregiver will verbalize understanding and demonstrate improved management of genitourinary disease/condition. Description: Patient/Caregiver will state understanding of genitourinary disease/condition and be able to teach back management strategies by 05/05/23. SN Genitourinary disease process No Patient will verbalize understanding of Musculoskeletal disease process, usp effects and effective management strategies Description: Patient will verbalize understanding of Musculoskeletal disease process, usp effects and effective management strategies by 05/05/23. SN Muscuoskeltal Disease Process No Interventions Intervention Associated Problem/Goal Status Variance Visit Notes Medication Education Description: Evaluate/instruct patient/caregiver on obtaining, storing, identifying and administering ordered medications as well as keeping accurate medication list in the home and adhereing to medication schedule Problem:Medication Education Goal:Patient/caregive r will demonstrate ability to obtain, store, identify and administer ordered medications, keep accurate medication list in home, and adhere to medication schedule Completed Patient instructed on importance of keeping accurate medication list in home and adhering to medication schedule. Risk of Sepsis Description: Patient is at risk for sepsis. Monitor closely for s/s of sepsis. Problem:Sepsis Goal:Patient/caregive r will be able to identify and report symptoms of sepsis Completed SPO2 Description: Notify Dr. Kurt Saravia MD if pulse ox is <92% at rest. Problem:Physician Specific Parameters Goal:Patient to maintain parameters within physician-specified ranges throughout certification period Completed Instruct on individual fall risk factors and strategies to prevent falls and injuries caused by falls. Problem:Risk for Falls Goal:Manage Risk for falls Completed SN: Patient instructed on Eliminating Environmental Hazards: Keep pathways clear, Keep pets out of pathways, Remove unsafe rugs, Keep rooms and walkways well lit, Wear supportive shoes or non-skid socks and Keep frequently used items within reach Instruct on pain and instruct on strategies to control pain Problem:Pain Goal:Manage Pain Completed patient instructed on techniques to control pain including Non-Pharmacological measures; rest, positioning/elevation and distraction. Define patient s appetite/hydration status and implement strategies to improve compliance with prescribed diet and/or healthy nutrition. Problem:Nutrition/Hyd ration Goal:Manage Nutrition/Hydration Completed instructed patient on implementing strategies to comply with prescribed diet and healthy nutrition Antiplatelet- educated on high risk medication Problem:High Risk Medications Goal:Patient/caregive r will teach back high risk medication side effect and precaution education Completed patient educated on taking medication(s) as prescribed by provider. Do not stop medication or alter doses without speaking with your provider. Discuss medication effectiveness or side effect concerns with your provider and home care team. Discuss all medications you are taking, even [id number] medicines, with your provider and pharmacist since many drugs can interact with antiplatelet medications. If you forget to take a dose, DO NOT take a double dose. Take the missed dose as soon as possible on the same day. DO NOT take a double dose the next day to make up for the missed dose. Watch for signs of abnormal or excessive bleeding and bruising (refer to Bleeding Precautions education). Call your health care provider right away if you suspect something is wrong. Instruct on ongoing discharge plan Problem:Discharge Goal:Manage discharge planning Completed Ongoing Discharge plan: Discharge plan discussed with patient including frequency and duration for home SN and plan for transition to: live independently at home without ongoing services. Instruct on cardiovascular disease process and management of condition Description: Patient has following cardiac diagnosis(es): Hypertension. Problem:SN Cardiovascular Condition Goal:Improved management of cardiovascular disease Completed patient instructed on cardiac disease process. Instruct and educate on knowledge deficits Problem:SN Learning Assessment Goal:Demonstrate understanding of education Completed patient verbalize and/or demonstrate understanding of nursing education completed today. Education methods include: verbal cues. Further education required to improve knowledge and compliance with diabetic care management, fall prevention/home safety strategies, medication management and nutrition. Incontinence- Instruct Patient/Caregiver on measures to manage urinary incontinence Problem:SN Genitourinary disease process Goal:Patient/Caregive r will verbalize understanding and demonstrate improved management of genitourinary disease/condition. Completed patient instructed on measures to manage Urinary incontinence including: use of pads/protective garments. Assess/Instruct Patient/Caregiver understanding of Musculoskeletal disease process Description: Assess patient/caregiver understanding of musculoskeletal disease process osteoarthritis, usp effects and effective management strategies. Problem:SN Muscuoskeltal Disease Process Goal:Patient will verbalize understanding of Musculoskeletal disease process, usp effects and effective management strategies Completed Patient instructed on musculoskeletal disease process including: usp effects. [facility] Visit Details Visit Type -OT EVAL Discipline -Occupational Therapy Problems Problem Description Start Date Status Goals Interve ntions OT Referral Disciplines: Skilled Services 03/07/2023 Resolved on 03/13/2023 1 goal linked to scheduled/document ed intervention 1 goal intervention scheduled/document ed in this visit Physician Specific Parameters Disciplines: Skilled Services 03/07/2023 Active 1 goal linked to scheduled/document ed intervention 1 goal intervention scheduled/document ed in this visit Pain Disciplines: Skilled Services 03/07/2023 Active 1 goal linked to scheduled/document ed intervention 1 goal intervention scheduled/document ed in this visit OT Learning Assessment Disciplines: OT 03/13/2023 Resolved on 03/13/2023 1 goal linked to scheduled/document ed intervention 1 goal intervention scheduled/document ed in this visit Goals Goal Associated Problem Outcome Goal Met? Visit Notes Patient will be referred to additional discipline as needed OT Referral Completed Yes ot eval completed Patient to maintain parameters within physician-specified ranges throughout certification period Physician Specific Parameters No Manage Pain Description: Patient/caregiver will verbalize knowledge and understanding of appropriate techniques to control pain, including pain medication and non-pharmacological techniques. Patient will verbalize or demonstrate an acceptable level of pain as evidenced by a pain score of 0/10 and improvement in ability to perform activities of daily living to be achieved by 05/05/23. Pain No Demonstrate understanding of education Description: Patient and/or caregiver will understand educational instruction to be achieved by 03/13/23. OT Learning Assessment Completed Yes goal met Interventions Intervention Associated Problem/Goal Status Variance Visit Notes OT evaluation and treatment Description: Evaluate and treat for the assessment of functional deficits and establishment of appropriate interventions and education to address: I/ADL training, functional transfers, DME/adaptive equipment recommendations, safety awareness, energy conservation, home safety and falls prevention recommendations and upper extremity strengthening and home exercise program training. Problem:OT Referral Goal:Patient will be referred to additional discipline as needed Completed SPO2 Description: Notify Dr. Kurt Saravia MD if pulse ox is <92% at rest. Problem:Physician Specific Parameters Goal:Patient to maintain parameters within physician-specified ranges throughout certification period Completed Instruct on pain and instruct on strategies to control pain Problem:Pain Goal:Manage Pain Completed patient instructed on techniques to control pain including Pharmacological measures and Non-Pharmacological measures; rest and positioning/elevation. Instruct and educate on knowledge deficits Problem:OT Learning Assessment Goal:Demonstrate understanding of education Completed Education methods include: verbal cues. Patient/Caregiver require further education to improve knowledge and compliance with fall prevention strategies, pain management, balance training, home safety and functional transfers. documented in this encounter [facility] Plan of care note* Visit Details Visit Type -NETWORK DESIGN ARCHITECT ROUTINE Discipline -Physical Therapy Problems Problem Description Start Date Status Goals Interve ntions Medication Education Disciplines: Skilled Services 03/07/2023 Active 1 goal linked to scheduled/document ed intervention 1 goal intervention scheduled/document ed in this visit Sepsis Disciplines: Skilled Services 03/07/2023 Active 1 goal linked to scheduled/document ed intervention 1 goal intervention scheduled/document ed in this visit Physician Specific Parameters Disciplines: Skilled Services 03/07/2023 Active 1 goal linked to scheduled/document ed intervention 1 goal intervention scheduled/document ed in this visit Risk for Falls Disciplines: Skilled Services 03/07/2023 Active 1 goal linked to scheduled/document ed intervention 1 goal intervention scheduled/document ed in this visit Pain Disciplines: Skilled Services 03/07/2023 Active 1 goal linked to scheduled/document ed intervention 1 goal intervention scheduled/document ed in this visit PT Impaired muscle performance and/or ROM Disciplines: PT 03/08/2023 Active 1 goal linked to scheduled/document ed intervention 1 goal intervention scheduled/document ed in this visit PT Impaired mobility Disciplines: PT 03/08/2023 Active 1 goal linked to scheduled/document ed intervention 1 goal intervention scheduled/document ed in this visit PT Impaired gait Disciplines: PT 03/08/2023 Active 1 goal linked to scheduled/document ed intervention 1 goal intervention scheduled/document ed in this visit Goals Goal Associated Problem Outcome Goal Met? Visit Notes Patient/caregiver will demonstrate ability to obtain, store, identify and administer ordered medications, keep accurate medication list in home, and adhere to medication schedule Description: Patient/caregiver will demonstrate ability to obtain, store, identify and administer ordered medications, keep accurate medication list in home, and adhere to medication schedule by 05/05/23. Medication Education No Patient/caregiver will be able to identify and report symptoms of sepsis Description: Patient/caregiver will be able to identify signs/symptoms of sepsis infection and will verbalize actions to take if suspected by 05/05/23. Sepsis No Patient to maintain parameters within physician-specified ranges throughout certification period Physician Specific Parameters No Manage Risk for falls Description: Patient/caregiver will verbalize knowledge of individualized fall prevention strategies by 05/05/23. Risk for Falls No Manage Pain Description: Patient/caregiver will verbalize knowledge and understanding of appropriate techniques to control pain, including pain medication and non-pharmacological techniques. Patient will verbalize or demonstrate an acceptable level of pain as evidenced by a pain score of 0/10 and improvement in ability to perform activities of daily living to be achieved by 05/05/23. Pain No Improved Muscle Performance and/or ROM Description: LTG: Patient will demonstrate improved muscle performance to meet functional goals as evidenced by improved 30 second chair rise score to 8 reps, to be achieved by 04/06/23. LTG: Patient and/or caregiver will verbalize/demonstrate independence with home exercise program, to improve functional mobility, to be achieved by 04/06/23. PT Impaired muscle performance and/or ROM No Improved Transfers Description: STG: Patient will demonstrate safe transfers to/from bed, chair and couch independently with AD, to be achieved by 03/30/23. PT Impaired mobility No Improved Gait Description: salvage determiner goal: Patient will demonstrate improved gait ability as evidenced by ambulation 200 feet with least restrictive AD independently, to return to safe household and community ambulation, to be achieved by04/06/23. PT Impaired gait No Interventions Intervention Associated Problem/Goal Status Variance Visit Notes Medication Education Description: Evaluate/instruct patient/caregiver on obtaining, storing, identifying and administering ordered medications as well as keeping accurate medication list in the home and adhereing to medication schedule Problem:Medication Education Goal:Patient/caregive r will demonstrate ability to obtain, store, identify and administer ordered medications, keep accurate medication list in home, and adhere to medication schedule Completed Patient instructed on importance of keeping accurate medication list in home, adhering to medication schedule and proper storage of medications. Risk of Sepsis Description: Patient is at risk for sepsis. Monitor closely for s/s of sepsis. Problem:Sepsis Goal:Patient/caregive r will be able to identify and report symptoms of sepsis Completed SPO2 Description: Notify Dr. Kurt Saravia MD if pulse ox is <92% at rest. Problem:Physician Specific Parameters Goal:Patient to maintain parameters within physician-specified ranges throughout certification period Completed Instruct on individual fall risk factors and strategies to prevent falls and injuries caused by falls. Problem:Risk for Falls Goal:Manage Risk for falls Completed PT: Patient instructed on Eliminating Environmental Hazards: Keep pathways clear, Keep rooms and walkways well lit and Wear supportive shoes or non-skid socks Managing Pain Instruct on pain and instruct on strategies to control pain Problem:Pain Goal:Manage Pain Completed patient instructed on techniques to control pain including Pharmacological measures and Non-Pharmacological measures; rest, positioning/elevation, mobility/therapeutic exercise and use of DME/assistive devices. Physical Therapy Therapeutic Exercises Problem:PT Impaired muscle performance and/or ROM Goal:Improved Muscle Performance and/or ROM Completed patient instructed on strengthening exercises including sink ex x 10 reps: hip flx/ext/abd, toe raises, SLR mini squats, hamstring curls with verbal, visual and written cues for slow speed, small range, upright posture. patient instructed to perform home exercise program twice a day which included listed ex. Physical Therapy Transfer Training Problem:PT Impaired mobility Goal:Improved Transfers Completed Transfer training and instruction to patient on safe transfers to and from chair with stand by assist and verbal cues for hand placement and positioning. Physical Therapy Gait Training Problem:PT Impaired gait Goal:Improved Gait Completed Gait training and instruction to patient on safe ambulation with rollator walker for 2 x 70 feet with stand by assist, with verbal cues for pacing, upright posture. [facility] Visit Details Visit Type -SN ROUTINE Discipline -Prison Problems Problem Description Start Date Status Goals Interve ntions Medication Education Disciplines: Skilled Services 03/07/2023 Active 1 goal linked to scheduled/documen gonzalez intervention 1 goal intervention scheduled/document ed in this visit Sepsis Disciplines: Skilled Services 03/07/2023 Active 1 goal linked to scheduled/documen gonzalez intervention 1 goal intervention scheduled/document ed in this visit Physician Specific Parameters Disciplines: Skilled Services 03/07/2023 Active 1 goal linked to scheduled/documen gonzalez intervention 1 goal intervention scheduled/document ed in this visit Risk for Falls Disciplines: Skilled Services 03/07/2023 Active 1 goal linked to scheduled/documen gonzalez intervention 1 goal intervention scheduled/document ed in this visit Pain Disciplines: Skilled Services 03/07/2023 Active 1 goal linked to scheduled/documen gonzalez intervention 1 goal intervention scheduled/document ed in this visit Nutrition/Hydration Disciplines: Skilled Services 03/07/2023 Active 1 goal linked to scheduled/documen gonzalez intervention 1 goal intervention scheduled/document ed in this visit High Risk Medications Disciplines: Skilled Services 03/07/2023 Active 1 goal linked to scheduled/documen gonzalez intervention 1 goal intervention scheduled/document ed in this visit SN Cardiovascular Condition Disciplines: SN 03/07/2023 Active 1 goal linked to scheduled/documen gonzalez intervention 1 goal intervention scheduled/document ed in this visit SN Learning Assessment Disciplines: SN 03/07/2023 Active 1 goal linked to scheduled/documen gonzalez intervention 1 goal intervention scheduled/document ed in this visit SN Genitourinary disease process Disciplines: SN 03/07/2023 Active 1 goal linked to scheduled/documen gonzalez intervention 1 goal intervention scheduled/document ed in this visit SN Muscuoskeltal Disease Process Disciplines: SN 03/07/2023 Active 1 goal linked to scheduled/documen gonzalez intervention 1 goal intervention scheduled/document ed in this visit Goals Goal Associated Problem Outcome Goal Met? Visit Notes Patient/caregiver will demonstrate ability to obtain, store, identify and administer ordered medications, keep accurate medication list in home, and adhere to medication schedule Description: Patient/caregiver will demonstrate ability to obtain, store, identify and administer ordered medications, keep accurate medication list in home, and adhere to medication schedule by 05/05/23. Medication Education No Patient/caregiver will be able to identify and report symptoms of sepsis Description: Patient/caregiver will be able to identify signs/symptoms of sepsis infection and will verbalize actions to take if suspected by 05/05/23. Sepsis No Patient to maintain parameters within physician-specified ranges throughout certification period Physician Specific Parameters No Manage Risk for falls Description: Patient/caregiver will verbalize knowledge of individualized fall prevention strategies by 05/05/23. Risk for Falls No Manage Pain Description: Patient/caregiver will verbalize knowledge and understanding of appropriate techniques to control pain, including pain medication and non-pharmacological techniques. Patient will verbalize or demonstrate an acceptable level of pain as evidenced by a pain score of 0/10 and improvement in ability to perform activities of daily living to be achieved by 05/05/23. Pain No Manage Nutrition/Hydration Description: Patient/caregiver will verbalize/demonstrate knowledge of prescribed diet and/or healthy nutrition to be achieved by 05/05/23. Nutrition/Hydration No Patient/caregiver will teach back high risk medication side effect and precaution education High Risk Medications No Improved management of cardiovascular disease Description: Improve patient/caregiver management of cardiac disease as evidenced by patient/caregiver ability to teach back cardiac management strategies by 05/05/23. SN Cardiovascular Condition No Demonstrate understanding of education Description: Patient and/or caregiver will verbalize understanding of educational instruction provided throughout certification period. SN Learning Assessment No Patient/Caregiver will verbalize understanding and demonstrate improved management of genitourinary disease/condition. Description: Patient/Caregiver will state understanding of genitourinary disease/condition and be able to teach back management strategies by 05/05/23. SN Genitourinary disease process No Patient will verbalize understanding of Musculoskeletal disease process, terminal operator effects and effective management strategies Description: Patient will verbalize understanding of Musculoskeletal disease process, usp effects and effective management strategies by 05/05/23. SN Muscuoskeltal Disease Process No Interventions Intervention Associated Problem/Goal Status Variance Visit Notes Medication Education Description: Evaluate/instruct patient/caregiver on obtaining, storing, identifying and administering ordered medications as well as keeping accurate medication list in the home and adhereing to medication schedule Problem:Medication Education Goal:Patient/caregive r will demonstrate ability to obtain, store, identify and administer ordered medications, keep accurate medication list in home, and adhere to medication schedule Completed Patient instructed on importance of keeping accurate medication list in home, adhering to medication schedule, proper storage of medications and disposing of old and out of date medications. Risk of Sepsis Description: Patient is at risk for sepsis. Monitor closely for s/s of sepsis. Problem:Sepsis Goal:Patient/caregive r will be able to identify and report symptoms of sepsis Completed SPO2 Description: Notify Dr. Kurt Saravia MD if pulse ox is <92% at rest. Problem:Physician Specific Parameters Goal:Patient to maintain parameters within physician-specified ranges throughout certification period Completed Instruct on individual fall risk factors and strategies to prevent falls and injuries caused by falls. Problem:Risk for Falls Goal:Manage Risk for falls Completed SN: Patient instructed on Eliminating Environmental Hazards: Keep pathways clear, Keep pets out of pathways, Remove unsafe rugs, Keep rooms and walkways well lit and Wear supportive shoes or non-skid socks Instruct on pain and instruct on strategies to control pain Problem:Pain Goal:Manage Pain Completed patient instructed on techniques to control pain including Pharmacological measures. Define patient s appetite/hydration status and implement strategies to improve compliance with prescribed diet and/or healthy nutrition. Problem:Nutrition/Hyd ration Goal:Manage Nutrition/Hydration Completed reinforced patient on implementing strategies to comply with healthy nutrition Antiplatelet- educated on high risk medication Problem:High Risk Medications Goal:Patient/caregive r will teach back high risk medication side effect and precaution education Completed patient educated on taking medication(s) as prescribed by provider. Do not stop medication or alter doses without speaking with your provider. Discuss medication effectiveness or side effect concerns with your provider and home care team. Discuss all medications you are taking, even [id number] medicines, with your provider and pharmacist since many drugs can interact with antiplatelet medications. If you forget to take a dose, DO NOT take a double dose. Take the missed dose as soon as possible on the same day. DO NOT take a double dose the next day to make up for the missed dose. Watch for signs of abnormal or excessive bleeding and bruising (refer to Bleeding Precautions education). Call your health care provider right away if you suspect something is wrong. Instruct on cardiovascular disease process and management of condition Description: Patient has following cardiac diagnosis(es): Hypertension. Problem:SN Cardiovascular Condition Goal:Improved management of cardiovascular disease Completed patient instructed on cardiac disease process. Instruct and educate on knowledge deficits Problem:SN Learning Assessment Goal:Demonstrate understanding of education Completed patient verbalize and/or demonstrate understanding of nursing education completed today. Education methods include: verbal cues and teach back. Further education required to improve knowledge and compliance with fall prevention/home safety strategies. Incontinence- Instruct Patient/Caregiver on measures to manage urinary incontinence Problem:SN Genitourinary disease process Goal:Patient/Caregive r will verbalize understanding and demonstrate improved management of genitourinary disease/condition. Completed patient instructed on measures to manage Urinary incontinence including: use of pads/protective garments. Assess/Instruct Patient/Caregiver understanding of Musculoskeletal disease process Description: Assess patient/caregiver understanding of musculoskeletal disease process osteoarthritis, terminal operator effects and effective management strategies. Problem:SN Muscuoskeltal Disease Process Goal:Patient will verbalize understanding of Musculoskeletal disease process, terminal operator effects and effective management strategies Completed Patient instructed on musculoskeletal disease process including: usp effects. documented in this encounter [facility] home Plan of care note* Visit Details Visit Type -NETWORK DESIGN ARCHITECT ROUTINE Discipline -Physical Therapy Problems Problem Description Start Date Status Goals Interve ntions Sepsis Disciplines: Skilled Services 03/07/2023 Active 1 goal linked to scheduled/documen gonzalez intervention 1 goal intervention scheduled/document ed in this visit Physician Specific Parameters Disciplines: Skilled Services 03/07/2023 Active 1 goal linked to scheduled/documen gonzalez intervention 1 goal intervention scheduled/document ed in this visit Risk for Falls Disciplines: Skilled Services 03/07/2023 Active 1 goal linked to scheduled/documen gonzalez intervention 1 goal intervention scheduled/document ed in this visit Pain Disciplines: Skilled Services 03/07/2023 Active 1 goal linked to scheduled/documen gonzalez intervention 1 goal intervention scheduled/document ed in this visit PT Impaired muscle performance and/or ROM Disciplines: PT 03/08/2023 Active 1 goal linked to scheduled/documen gonzalez intervention 1 goal intervention scheduled/document ed in this visit PT Impaired mobility Disciplines: PT 03/08/2023 Active 1 goal linked to scheduled/documen gonzalez intervention 1 goal intervention scheduled/document ed in this visit PT Impaired gait Disciplines: PT 03/08/2023 Active 1 goal linked to scheduled/documen gonzalez intervention 1 goal intervention scheduled/document ed in this visit PT Cardiovascular Disease Disciplines: PT 03/08/2023 Active 1 goal linked to scheduled/documen gonzalez intervention 1 goal intervention scheduled/document ed in this visit Goals Goal Associated Problem Outcome Goal Met? Visit Notes Patient/caregiver will be able to identify and report symptoms of sepsis Description: Patient/caregiver will be able to identify signs/symptoms of sepsis infection and will verbalize actions to take if suspected by 05/05/23. Sepsis No Patient to maintain parameters within physician-specified ranges throughout certification period Physician Specific Parameters No Manage Risk for falls Description: Patient/caregiver will verbalize knowledge of individualized fall prevention strategies by 05/05/23. Risk for Falls No Manage Pain Description: Patient/caregiver will verbalize knowledge and understanding of appropriate techniques to control pain, including pain medication and non-pharmacological techniques. Patient will verbalize or demonstrate an acceptable level of pain as evidenced by a pain score of 0/10 and improvement in ability to perform activities of daily living to be achieved by 05/05/23. Pain No Improved Muscle Performance and/or ROM Description: LTG: Patient will demonstrate improved muscle performance to meet functional goals as evidenced by improved 30 second chair rise score to 8 reps, to be achieved by 04/06/23. LTG: Patient and/or caregiver will verbalize/demonstrate independence with home exercise program, to improve functional mobility, to be achieved by 04/06/23. PT Impaired muscle performance and/or ROM No Improved Transfers Description: STG: Patient will demonstrate safe transfers to/from bed, chair and couch independently with AD, to be achieved by 03/30/23. PT Impaired mobility No Improved Gait Description: salvage determiner goal: Patient will demonstrate improved gait ability as evidenced by ambulation 200 feet with least restrictive AD independently, to return to safe household and community ambulation, to be achieved by04/06/23. PT Impaired gait No Manage Secondary Cardiovascular disease Description: Improve patient and/or caregiver understanding of secondary cardiovascular disease management as evidenced by patient and/or caregiver able to verbalize, demonstrate, and teach back instruction, to be achieved by 04/06/23. PT Cardiovascular Disease No Interventions Intervention Associated Problem/Goal Status Variance Visit Notes Risk of Sepsis Description: Patient is at risk for sepsis. Monitor closely for s/s of sepsis. Problem:Sepsis Goal:Patient/caregiver will be able to identify and report symptoms of sepsis Completed SPO2 Description: Notify Dr. Kurt Saravia MD if pulse ox is <92% at rest. Problem:Physician Specific Parameters Goal:Patient to maintain parameters within physician-specified ranges throughout certification period Completed Instruct on individual fall risk factors and strategies to prevent falls and injuries caused by falls. Problem:Risk for Falls Goal:Manage Risk for falls Completed PT: Patient instructed on Eliminating Environmental Hazards: Keep pets out of pathways, Keep rooms and walkways well lit and Wear supportive shoes or non-skid socks Managing Pain Instruct on pain and instruct on strategies to control pain Problem:Pain Goal:Manage Pain Completed patient instructed on techniques to control pain including Non-Pharmacological measures; rest, positioning/elevatio n, mobility/therapeutic exercise and breathing/relaxation . Physical Therapy Therapeutic Exercises Problem:PT Impaired muscle performance and/or ROM Goal:Improved Muscle Performance and/or ROM Completed patient instructed on strengthening exercises including sink ex x 10 reps: hip flx/ext/abd, toe raises, SLR mini squats, hamstring curls with verbal, visual and written cues for slow speed, small range, upright posture. patient instructed to perform home exercise program twice a day which included listed ex. Physical Therapy Transfer Training Problem:PT Impaired mobility Goal:Improved Transfers Completed Transfer training and instruction to patient on safe transfers to and from couch with independent Physical Therapy Gait Training Problem:PT Impaired gait Goal:Improved Gait Completed Gait training and instruction to patient on safe ambulation without device x 60 feet, 100 feet with stand by assist, with verbal cues for pacing, upright posture. Instruct on signs, symptoms, and management of secondary cardiovascular disease Problem:PT Cardiovascular Disease Goal:Manage Secondary Cardiovascular disease Completed Instructed patient on energy conservation and exercise and activity guidelines. [facility] Visit Details Visit Type -PT REASSESSMENT Discipline -Physical Therapy Problems Problem Description Start Date Status Goals Interve ntions Medication Education Disciplines: Skilled Services 03/07/2023 Active 1 goal linked to scheduled/documen gonzalez intervention 1 goal intervention scheduled/documen gonzalez in this visit Sepsis Disciplines: Skilled Services 03/07/2023 Active 1 goal linked to scheduled/documen gonzalez intervention 1 goal intervention scheduled/documen gonzalez in this visit Physician Specific Parameters Disciplines: Skilled Services 03/07/2023 Active 1 goal linked to scheduled/documen gonzalez intervention 1 goal intervention scheduled/documen gonzalez in this visit Risk for Falls Disciplines: Skilled Services 03/07/2023 Active 1 goal linked to scheduled/documen gonzalez intervention 1 goal intervention scheduled/documen gonzalez in this visit Pain Disciplines: Skilled Services 03/07/2023 Active 1 goal linked to scheduled/documen gonzalez intervention 1 goal intervention scheduled/documen gonzalez in this visit Discharge Disciplines: Skilled Services 03/07/2023 Active 1 goal linked to scheduled/documen gonzalez intervention 1 goal intervention scheduled/documen gonzalez in this visit PT Impaired muscle performance and/or ROM Disciplines: PT 03/08/2023 Active 1 goal linked to scheduled/documen gonzalez intervention 1 goal intervention scheduled/documen gonzalez in this visit PT Impaired mobility Disciplines: PT 03/08/2023 Active 1 goal linked to scheduled/documen gonzalez intervention 1 goal intervention scheduled/documen gonzalez in this visit PT Impaired gait Disciplines: PT 03/08/2023 Active 2 goals linked to scheduled/documen gonzalez interventions 2 goal interventions scheduled/documen gonzalez in this visit PT Impaired balance Disciplines: PT 03/08/2023 Active 1 goal linked to scheduled/documen gonzalez intervention 1 goal intervention scheduled/documen gonzalez in this visit PT Learning Assessment Disciplines: PT 03/08/2023 Active 1 goal linked to scheduled/documen gonzalez intervention 1 goal intervention scheduled/documen gonzalez in this visit PT Cardiovascular Disease Disciplines: PT 03/08/2023 Resolved on 04/03/2023 1 goal linked to scheduled/documen gonzalez intervention 1 goal intervention scheduled/documen gonzalez in this visit Goals Goal Associated Problem Outcome Goal Met? Visit Notes Patient/caregiver will demonstrate ability to obtain, store, identify and administer ordered medications, keep accurate medication list in home, and adhere to medication schedule Description: Patient/caregiver will demonstrate ability to obtain, store, identify and administer ordered medications, keep accurate medication list in home, and adhere to medication schedule by 05/05/23. Medication Education No Patient/caregiver will be able to identify and report symptoms of sepsis Description: Patient/caregiver will be able to identify signs/symptoms of sepsis infection and will verbalize actions to take if suspected by 05/05/23. Sepsis No Patient to maintain parameters within physician-specified ranges throughout certification period Physician Specific Parameters No Manage Risk for falls Description: Patient/caregiver will verbalize knowledge of individualized fall prevention strategies by 05/05/23. Risk for Falls No Manage Pain Description: Patient/caregiver will verbalize knowledge and understanding of appropriate techniques to control pain, including pain medication and non-pharmacological techniques. Patient will verbalize or demonstrate an acceptable level of pain as evidenced by a pain score of 0/10 and improvement in ability to perform activities of daily living to be achieved by 05/05/23. Pain No Manage discharge planning Description: Patient/caregiver will verbalize understanding of ongoing discharge plan provided related to disease management, arrangements for outpatient and/or community services, obtaining medications, supplies, and DME, as needed throughout certification period. Discharge No Improved Muscle Performance and/or ROM Description: LTG: Patient will demonstrate improved muscle performance to meet functional goals as evidenced by improved 30 second chair rise score to 8 reps, to be achieved by 04/06/23. PT reassessment completed, new achieve by date 04/27/2023 LTG: Patient and/or caregiver will verbalize/demonstrate independence with home exercise program, to improve functional mobility, to be achieved by 04/06/23. PT reassessment completed, new achieve by date 04/27/2023 PT Impaired muscle performance and/or ROM No Improved Transfers Description: STG: Patient will demonstrate safe transfers to/from bed, chair and couch independently with AD, to be achieved by 03/30/23. PT reassessment completed, new achieve by date 04/27/2023 PT Impaired mobility No Improved Stair Climbing Description: LTG: Patient will demonstrate improved stair negotiation as evidenced by ascend/descend 3 steps with railing independently, to safely exit home, to be achieved by 04/06/23. PT reassessment completed, new achieve by date 04/27/2023 PT Impaired gait No Improved Gait Description: correction goal: Patient will demonstrate improved gait ability as evidenced by ambulation 200 feet with least restrictive AD independently, to return to safe household and community ambulation, to be achieved by04/06/23. PT reassessment completed, new achieve by date 04/27/2023 PT Impaired gait No Improved Balance Description: salvage determiner goal: Patient will demonstrate improved standingbalance and functional ability as evidenced by TUG score </=14 sec, to be achieved by 04/06/23. PT reassessment completed, goal updated to TUG score in 12 seconds or less to reduce risk for falls, to be achieved by 04/27/2023 PT Impaired balance No Demonstrate understanding of education Description: Patient and/or caregiver will understand educational instruction to be achieved by 04/06/23. PT reassessment completed, new achieve by date 04/27/2023 PT Learning Assessment No Manage Secondary Cardiovascular disease Description: Improve patient and/or caregiver understanding of secondary cardiovascular disease management as evidenced by patient and/or caregiver able to verbalize, demonstrate, and teach back instruction, to be achieved by 04/06/23. PT Cardiovascular Disease Completed Yes Interventions Intervention Associated Problem/Goal Status Variance Visit Notes Medication Education Description: Evaluate/instruct patient/caregiver on obtaining, storing, identifying and administering ordered medications as well as keeping accurate medication list in the home and adhereing to medication schedule Problem:Medication Education Goal:Patient/caregive r will demonstrate ability to obtain, store, identify and administer ordered medications, keep accurate medication list in home, and adhere to medication schedule Completed Patient and Caregiver instructed on adhering to medication schedule. Risk of Sepsis Description: Patient is at risk for sepsis. Monitor closely for s/s of sepsis. Problem:Sepsis Goal:Patient/caregive r will be able to identify and report symptoms of sepsis Completed SPO2 Description: Notify Dr. Kurt Saravia MD if pulse ox is <92% at rest. Problem:Physician Specific Parameters Goal:Patient to maintain parameters within physician-specified ranges throughout certification period Completed Instruct on individual fall risk factors and strategies to prevent falls and injuries caused by falls. Problem:Risk for Falls Goal:Manage Risk for falls Completed PT: Patient instructed on Eliminating Environmental Hazards: Keep pathways clear, Keep pets out of pathways and Remove unsafe rugs Managing Impaired Functional Mobility: Use assistive device(s): rollator walker and Caregiver to provide assist with: Ambulation, Steps and ADL/IADLs Managing Pain Instruct on pain and instruct on strategies to control pain Problem:Pain Goal:Manage Pain Completed patient and caregiver instructed on techniques to control pain including Pharmacological measures and Non-Pharmacological measures; rest, positioning/elevation, mobility/therapeutic exercise, use of DME/assistive devices and use of thermal modalities Instruct on ongoing discharge plan Problem:Discharge Goal:Manage discharge planning Completed Ongoing Discharge plan: Discharge plan discussed with patient and caregiver including frequency and duration for home PT and plan for transition to: caregiver assistance. Physical Therapy Therapeutic Exercises Problem:PT Impaired muscle performance and/or ROM Goal:Improved Muscle Performance and/or ROM Completed Patient instructed in standing HEP this date with BUE support. Standing: heel raises, marching, knee flexion, hip abduction, hip extension and mini squats x 10 reps bilaterally. Verbal, visual and tactile cues provided for proper technique and pacing for exercises this date. Instructed patient in upright posture throughout all exercises. Educated patient on importance of performing HEP 2 to 3 times daily in order to improve strength for functional mobility. Also instructed patient on increasing short distance ambulation frequency to at least once every 1 to 2 hours during the day in order to improve activity tolerance and endurance. Physical Therapy Transfer Training Problem:PT Impaired mobility Goal:Improved Transfers Completed Transfer training and instruction to patient and caregiver on safe transfers to and from chair with supervision and verbal cues for locking rollator brakes prior to all transfers. Training on the following adaptive equipment/durable medical equipment: walker. Physical Therapy Stair Training Problem:PT Impaired gait Goal:Improved Stair Climbing Completed Stair training and instruction to patient on safe stair climbing, ascend/descend 3 steps, with railing and with contact guard assist and verbal cues for proper step placement. Physical Therapy Gait Training Problem:PT Impaired gait Goal:Improved Gait Completed Gait training and instruction to patient and caregiver on safe ambulation with rollator walker for multiple distances up to approx 100 feet with stand by assist, with verbal cues for corrections of gait deviations including upright posture and staying close to AD. Patient ambulated multiple trials without AD and demonstrates unsteady gait, patient furniture walks. Education provided throughout visit on importance of using rollator for all mobility to decrease risk for falls. Physical Therapy Balance Training Problem:PT Impaired balance Goal:Improved Balance Completed Patient instructed in standing HEP this date with BUE support. Standing: heel raises, marching, knee flexion, hip abduction, hip extension and mini squats x 10 reps bilaterally. Verbal, visual and tactile cues provided for proper technique and pacing for exercises this date. Instructed patient in upright posture throughout all exercises. Educated patient on importance of performing HEP 2 to 3 times daily in order to improve strength for functional mobility. Also instructed patient on increasing short distance ambulation frequency to at least once every 1 to 2 hours during the day in order to improve activity tolerance and endurance. Instruct and educate on knowledge deficits Problem:PT Learning Assessment Goal:Demonstrate understanding of education Completed patient verbalize and/or demonstrate understanding of physical therapy education including cardiac disease management. Education methods include: verbal cues, tactile cues, written instructions, visual cues and teach back. Further education required to improve knowledge and compliance with pain management, fall prevention strategies, home safety, functional activity and home exercise program. Instruct on signs, symptoms, and management of secondary cardiovascular disease Problem:PT Cardiovascular Disease Goal:Manage Secondary Cardiovascular disease Completed Instructed patient and caregiver on exercise and activity guidelines. [facility] Visit Details Visit Type -SN ROUTINE Discipline -Prison Problems Problem Description Start Date Status Goals Interve ntions Medication Education Disciplines: Skilled Services 03/07/2023 Active 1 goal linked to scheduled/documen gonzalez intervention 1 goal intervention scheduled/document ed in this visit Sepsis Disciplines: Skilled Services 03/07/2023 Active 1 goal linked to scheduled/documen gonzalez intervention 1 goal intervention scheduled/document ed in this visit Physician Specific Parameters Disciplines: Skilled Services 03/07/2023 Active 1 goal linked to scheduled/documen gonzalez intervention 1 goal intervention scheduled/document ed in this visit Risk for Falls Disciplines: Skilled Services 03/07/2023 Active 1 goal linked to scheduled/documen gonzalez intervention 1 goal intervention scheduled/document ed in this visit Pain Disciplines: Skilled Services 03/07/2023 Active 1 goal linked to scheduled/documen gonzalez intervention 1 goal intervention scheduled/document ed in this visit Nutrition/Hydration Disciplines: Skilled Services 03/07/2023 Active 1 goal linked to scheduled/documen gonzalez intervention 1 goal intervention scheduled/document ed in this visit High Risk Medications Disciplines: Skilled Services 03/07/2023 Active 1 goal linked to scheduled/documen gonzalez intervention 1 goal intervention scheduled/document ed in this visit Discharge Disciplines: Skilled Services 03/07/2023 Active 1 goal linked to scheduled/documen gonzalez intervention 1 goal intervention scheduled/document ed in this visit SN Cardiovascular Condition Disciplines: SN 03/07/2023 Active 1 goal linked to scheduled/documen gonzalez intervention 1 goal intervention scheduled/document ed in this visit SN Learning Assessment Disciplines: SN 03/07/2023 Active 1 goal linked to scheduled/documen gonzalez intervention 1 goal intervention scheduled/document ed in this visit SN Genitourinary disease process Disciplines: SN 03/07/2023 Active 1 goal linked to scheduled/documen gonzalez intervention 1 goal intervention scheduled/document ed in this visit SN Muscuoskeltal Disease Process Disciplines: 03/07/2023 Active 1 goal linked to scheduled/documen gonzalez intervention 1 goal intervention scheduled/document ed in this visit Goals Goal Associated Problem Outcome Goal Met? Visit Notes Patient/caregiver will demonstrate ability to obtain, store, identify and administer ordered medications, keep accurate medication list in home, and adhere to medication schedule Description: Patient/caregiver will demonstrate ability to obtain, store, identify and administer ordered medications, keep accurate medication list in home, and adhere to medication schedule by 05/05/23. Medication Education No Patient/caregiver will be able to identify and report symptoms of sepsis Description: Patient/caregiver will be able to identify signs/symptoms of sepsis infection and will verbalize actions to take if suspected by 05/05/23. Sepsis No Patient to maintain parameters within physician-specified ranges throughout certification period Physician Specific Parameters No Manage Risk for falls Description: Patient/caregiver will verbalize knowledge of individualized fall prevention strategies by 05/05/23. Risk for Falls No Manage Pain Description: Patient/caregiver will verbalize knowledge and understanding of appropriate techniques to control pain, including pain medication and non-pharmacological techniques. Patient will verbalize or demonstrate an acceptable level of pain as evidenced by a pain score of 0/10 and improvement in ability to perform activities of daily living to be achieved by 05/05/23. Pain No Manage Nutrition/Hydration Description: Patient/caregiver will verbalize/demonstrate knowledge of prescribed diet and/or healthy nutrition to be achieved by 05/05/23. Nutrition/Hydration No Patient/caregiver will teach back high risk medication side effect and precaution education High Risk Medications No Manage discharge planning Description: Patient/caregiver will verbalize understanding of ongoing discharge plan provided related to disease management, arrangements for outpatient and/or community services, obtaining medications, supplies, and DME, as needed throughout certification period. Discharge No Improved management of cardiovascular disease Description: Improve patient/caregiver management of cardiac disease as evidenced by patient/caregiver ability to teach back cardiac management strategies by 05/05/23. SN Cardiovascular Condition No Demonstrate understanding of education Description: Patient and/or caregiver will verbalize understanding of educational instruction provided throughout certification period. SN Learning Assessment No Patient/Caregiver will verbalize understanding and demonstrate improved management of genitourinary disease/condition. Description: Patient/Caregiver will state understanding of genitourinary disease/condition and be able to teach back management strategies by 05/05/23. SN Genitourinary disease process No Patient will verbalize understanding of Musculoskeletal disease process, usp effects and effective management strategies Description: Patient will verbalize understanding of Musculoskeletal disease process, usp effects and effective management strategies by 05/05/23. SN Muscuoskeltal Disease Process No Interventions Intervention Associated Problem/Goal Status Variance Visit Notes Medication Education Description: Evaluate/instruct patient/caregiver on obtaining, storing, identifying and administering ordered medications as well as keeping accurate medication list in the home and adhereing to medication schedule Problem:Medication Education Goal:Patient/caregive r will demonstrate ability to obtain, store, identify and administer ordered medications, keep accurate medication list in home, and adhere to medication schedule Completed Patient and Caregiver instructed on importance of keeping accurate medication list in home, adhering to medication schedule and proper storage of medications. Risk of Sepsis Description: Patient is at risk for sepsis. Monitor closely for s/s of sepsis. Problem:Sepsis Goal:Patient/caregive r will be able to identify and report symptoms of sepsis Completed SPO2 Description: Notify Dr. Kurt Saravia MD if pulse ox is <92% at rest. Problem:Physician Specific Parameters Goal:Patient to maintain parameters within physician-specified ranges throughout certification period Completed Instruct on individual fall risk factors and strategies to prevent falls and injuries caused by falls. Problem:Risk for Falls Goal:Manage Risk for falls Completed SN: Patient and Caregiver instructed on Eliminating Environmental Hazards: Keep pathways clear, Keep pets out of pathways, Keep rooms and walkways well lit, Wear supportive shoes or non-skid socks and Keep frequently used items within reach Instruct on pain and instruct on strategies to control pain Problem:Pain Goal:Manage Pain Completed patient and caregiver instructed on techniques to control pain including Pharmacological measures and Non-Pharmacological measures; rest, positioning/elevation and mobility/therapeutic exercise. Define patient s appetite/hydration status and implement strategies to improve compliance with prescribed diet and/or healthy nutrition. Problem:Nutrition/Hyd ration Goal:Manage Nutrition/Hydration Completed reinforced patient and caregiver on implementing strategies to comply with prescribed diet, healthy nutrition and adequate hydration Antiplatelet- educated on high risk medication Problem:High Risk Medications Goal:Patient/caregive r will teach back high risk medication side effect and precaution education Completed patient educated on taking medication(s) as prescribed by provider. Do not stop medication or alter doses without speaking with your provider. Discuss medication effectiveness or side effect concerns with your provider and home care team. Discuss all medications you are taking, even [id number] medicines, with your provider and pharmacist since many drugs can interact with antiplatelet medications. If you forget to take a dose, DO NOT take a double dose. Take the missed dose as soon as possible on the same day. DO NOT take a double dose the next day to make up for the missed dose. Watch for signs of abnormal or excessive bleeding and bruising (refer to Bleeding Precautions education). Call your health care provider right away if you suspect something is wrong. Instruct on ongoing discharge plan Problem:Discharge Goal:Manage discharge planning Completed Ongoing Discharge plan: Discharge plan discussed with patient and caregiver including frequency and duration for home SN and plan for transition to: caregiver assistance. Instruct on cardiovascular disease process and management of condition Description: Patient has following cardiac diagnosis(es): Hypertension. Problem:SN Cardiovascular Condition Goal:Improved management of cardiovascular disease Completed patient and caregiver instructed on cardiac disease process, self monitoring & symptom reporting and Cardiac Diet. Instruct and educate on knowledge deficits Problem:SN Learning Assessment Goal:Demonstrate understanding of education Completed patient and caregiver verbalize and/or demonstrate understanding of nursing education completed today. Education methods include: verbal cues and teach back. Further education required to improve knowledge and compliance with cardiac disease management, diabetic care management, fall prevention/home safety strategies, nutrition and pain management. Incontinence- Instruct Patient/Caregiver on measures to manage urinary incontinence Problem:SN Genitourinary disease process Goal:Patient/Caregive r will verbalize understanding and demonstrate improved management of genitourinary disease/condition. Completed patient instructed on measures to manage Urinary incontinence including: use of pads/protective garments, scheduled bathroom trips, bladder training and skin care after incontinence episode. Assess/Instruct Patient/Caregiver understanding of Musculoskeletal disease process Description: Assess patient/caregiver understanding of musculoskeletal disease process osteoarthritis, usp effects and effective management strategies. Problem:SN Muscuoskeltal Disease Process Goal:Patient will verbalize understanding of Musculoskeletal disease process, terminal operator effects and effective management strategies Completed Patient instructed on musculoskeletal disease process including: usp effects, effective management strategies and signs and symptoms of exacerbation of disease and actions to take should they occur. documented in this encounter [facility] home Plan of care note* Visit Details Visit Type -PT ROUTINE Discipline -Physical Therapy Problems Problem Description Start Date Status Goals Interve ntions Medication Education Disciplines: Skilled Services 03/07/2023 Active 1 goal linked to scheduled/document ed intervention 1 goal intervention scheduled/document ed in this visit Sepsis Disciplines: Skilled Services 03/07/2023 Active 1 goal linked to scheduled/document ed intervention 1 goal intervention scheduled/document ed in this visit Physician Specific Parameters Disciplines: Skilled Services 03/07/2023 Active 1 goal linked to scheduled/document ed intervention 1 goal intervention scheduled/document ed in this visit Risk for Falls Disciplines: Skilled Services 03/07/2023 Active 1 goal linked to scheduled/document ed intervention 1 goal intervention scheduled/document ed in this visit Pain Disciplines: Skilled Services 03/07/2023 Active 1 goal linked to scheduled/document ed intervention 1 goal intervention scheduled/document ed in this visit Discharge Disciplines: Skilled Services 03/07/2023 Active 1 goal linked to scheduled/document ed intervention 1 goal intervention scheduled/document ed in this visit PT Impaired muscle performance and/or ROM Disciplines: PT 03/08/2023 Active 1 goal linked to scheduled/document ed intervention 1 goal intervention scheduled/document ed in this visit PT Impaired mobility Disciplines: PT 03/08/2023 Active 1 goal linked to scheduled/document ed intervention 1 goal intervention scheduled/document ed in this visit PT Impaired gait Disciplines: PT 03/08/2023 Active 2 goals linked to scheduled/document ed interventions 2 goal interventions scheduled/document ed in this visit PT Impaired balance Disciplines: PT 03/08/2023 Active 1 goal linked to scheduled/document ed intervention 1 goal intervention scheduled/document ed in this visit PT Learning Assessment Disciplines: PT 03/08/2023 Active 1 goal linked to scheduled/document ed intervention 1 goal intervention scheduled/document ed in this visit Goals Goal Associated Problem Outcome Goal Met? Visit Notes Patient/caregiver will demonstrate ability to obtain, store, identify and administer ordered medications, keep accurate medication list in home, and adhere to medication schedule Description: Patient/caregiver will demonstrate ability to obtain, store, identify and administer ordered medications, keep accurate medication list in home, and adhere to medication schedule by 05/05/23. Medication Education No Patient/caregiver will be able to identify and report symptoms of sepsis Description: Patient/caregiver will be able to identify signs/symptoms of sepsis infection and will verbalize actions to take if suspected by 05/05/23. Sepsis No Patient to maintain parameters within physician-specified ranges throughout certification period Physician Specific Parameters No Manage Risk for falls Description: Patient/caregiver will verbalize knowledge of individualized fall prevention strategies by 05/05/23. Risk for Falls No Manage Pain Description: Patient/caregiver will verbalize knowledge and understanding of appropriate techniques to control pain, including pain medication and non-pharmacological techniques. Patient will verbalize or demonstrate an acceptable level of pain as evidenced by a pain score of 0/10 and improvement in ability to perform activities of daily living to be achieved by 05/05/23. Pain No Manage discharge planning Description: Patient/caregiver will verbalize understanding of ongoing discharge plan provided related to disease management, arrangements for outpatient and/or community services, obtaining medications, supplies, and DME, as needed throughout certification period. Discharge No Improved Muscle Performance and/or ROM Description: LTG: Patient will demonstrate improved muscle performance to meet functional goals as evidenced by improved 30 second chair rise score to 8 reps, to be achieved by 04/06/23. PT reassessment completed, new achieve by date 04/27/2023 LTG: Patient and/or caregiver will verbalize/demonstrate independence with home exercise program, to improve functional mobility, to be achieved by 04/06/23. PT reassessment completed, new achieve by date 04/27/2023 PT Impaired muscle performance and/or ROM No Improved Transfers Description: STG: Patient will demonstrate safe transfers to/from bed, chair and couch independently with AD, to be achieved by 03/30/23. PT reassessment completed, new achieve by date 04/27/2023 PT Impaired mobility No Improved Stair Climbing Description: LTG: Patient will demonstrate improved stair negotiation as evidenced by ascend/descend 3 steps with railing independently, to safely exit home, to be achieved by 04/06/23. PT reassessment completed, new achieve by date 04/27/2023 PT Impaired gait No Improved Gait Description: salvage determiner goal: Patient will demonstrate improved gait ability as evidenced by ambulation 200 feet with least restrictive AD independently, to return to safe household and community ambulation, to be achieved by04/06/23. PT reassessment completed, new achieve by date 04/27/2023 PT Impaired gait No Improved Balance Description: salvage determiner goal: Patient will demonstrate improved standingbalance and functional ability as evidenced by TUG score </=14 sec, to be achieved by 04/06/23. PT reassessment completed, goal updated to TUG score in 12 seconds or less to reduce risk for falls, to be achieved by 04/27/2023 PT Impaired balance No Demonstrate understanding of education Description: Patient and/or caregiver will understand educational instruction to be achieved by 04/06/23. PT reassessment completed, new achieve by date 04/27/2023 PT Learning Assessment No Interventions Intervention Associated Problem/Goal Status Variance Visit Notes Medication Education Description: Evaluate/instruct patient/caregiver on obtaining, storing, identifying and administering ordered medications as well as keeping accurate medication list in the home and adhereing to medication schedule Problem:Medication Education Goal:Patient/caregive r will demonstrate ability to obtain, store, identify and administer ordered medications, keep accurate medication list in home, and adhere to medication schedule Completed Patient instructed on importance of keeping accurate medication list in home and adhering to medication schedule. Risk of Sepsis Description: Patient is at risk for sepsis. Monitor closely for s/s of sepsis. Problem:Sepsis Goal:Patient/caregive r will be able to identify and report symptoms of sepsis Completed SPO2 Description: Notify Dr. Kurt Saravia MD if pulse ox is <92% at rest. Problem:Physician Specific Parameters Goal:Patient to maintain parameters within physician-specified ranges throughout certification period Completed Instruct on individual fall risk factors and strategies to prevent falls and injuries caused by falls. Problem:Risk for Falls Goal:Manage Risk for falls Completed PT: Patient instructed on Eliminating Environmental Hazards: Keep pathways clear, Keep pets out of pathways, Remove unsafe rugs and Keep rooms and walkways well lit Managing Impaired Functional Mobility: Use assistive device(s): rollator walker and Caregiver to provide assist with: Ambulation, Steps, Transfers and ADL/IADLs Managing Pain Instruct on pain and instruct on strategies to control pain Problem:Pain Goal:Manage Pain Completed patient instructed on techniques to control pain including Pharmacological measures and Non-Pharmacological measures; rest, positioning/elevation, mobility/therapeutic exercise and use of DME/assistive devices. Instruct on ongoing discharge plan Problem:Discharge Goal:Manage discharge planning Completed Ongoing Discharge plan: Discharge plan discussed with patient including frequency and duration for home PT and plan for transition to: caregiver assistance. Physical Therapy Therapeutic Exercises Problem:PT Impaired muscle performance and/or ROM Goal:Improved Muscle Performance and/or ROM Completed Patient instructed in standing HEP this date with BUE support. Standing: heel raises, marching, hip abduction, hip extension and mini squats x 10 reps bilaterally. SLS x 30 seconds bilaterally Verbal, visual and tactile cues provided for proper technique and pacing for exercises this date. Instructed patient in upright posture throughout all exercises. Educated patient on importance of performing HEP 2 to 3 times daily in order to improve strength for functional mobility. Also instructed patient on increasing short distance ambulation frequency to at least once every 1 to 2 hours during the day in order to improve activity tolerance and endurance. Physical Therapy Transfer Training Problem:PT Impaired mobility Goal:Improved Transfers Completed Transfer training and instruction to patient on safe transfers to and from chair with supervision and verbal cues for proper hand and foot placement and to slow down. recommended on the following adaptive equipment/durable medical equipment: rollator walker Physical Therapy Stair Training Problem:PT Impaired gait Goal:Improved Stair Climbing Completed Stair training and instruction to patient on safe stair climbing, ascend/descend 1 steps, without railing with stand by assist and verbal cues for hand hold on door frame. Physical Therapy Gait Training Problem:PT Impaired gait Goal:Improved Gait Completed Gait training and instruction to patient on safe ambulation with no device for multiple distances up to approx 150 feet with stand by assist, with verbal cues for corrections of gait deviations including slowing down and observing pathway. Physical Therapy Balance Training Problem:PT Impaired balance Goal:Improved Balance Completed Patient instructed in standing HEP this date with BUE support. Standing: heel raises, marching, hip abduction, hip extension and mini squats x 10 reps bilaterally. SLS x 30 seconds bilaterally Verbal, visual and tactile cues provided for proper technique and pacing for exercises this date. Instructed patient in upright posture throughout all exercises. Educated patient on importance of performing HEP 2 to 3 times daily in order to improve strength for functional mobility. Also instructed patient on increasing short distance ambulation frequency to at least once every 1 to 2 hours during the day in order to improve activity tolerance and endurance. Instruct and educate on knowledge deficits Problem:PT Learning Assessment Goal:Demonstrate understanding of education Completed patient verbalize and/or demonstrate understanding of physical therapy education including pain management. Education methods include: verbal cues, written instructions, visual cues and teach back. Further education required to improve knowledge and compliance with fall prevention strategies, home safety, functional activity and home exercise program. documented in this encounter [facility] home Plan of care note* Visit Details Visit Type -PT ROUTINE Discipline -Physical Therapy Problems Problem Description Start Date Status Goals Interve ntions Medication Education Disciplines: Skilled Services 03/07/2023 Active 1 goal linked to scheduled/document ed intervention 1 goal intervention scheduled/document ed in this visit Sepsis Disciplines: Skilled Services 03/07/2023 Active 1 goal linked to scheduled/document ed intervention 1 goal intervention scheduled/document ed in this visit Physician Specific Parameters Disciplines: Skilled Services 03/07/2023 Active 1 goal linked to scheduled/document ed intervention 1 goal intervention scheduled/document ed in this visit Risk for Falls Disciplines: Skilled Services 03/07/2023 Active 1 goal linked to scheduled/document ed intervention 1 goal intervention scheduled/document ed in this visit Pain Disciplines: Skilled Services 03/07/2023 Active 1 goal linked to scheduled/document ed intervention 1 goal intervention scheduled/document ed in this visit Discharge Disciplines: Skilled Services 03/07/2023 Active 1 goal linked to scheduled/document ed intervention 1 goal intervention scheduled/document ed in this visit PT Impaired muscle performance and/or ROM Disciplines: PT 03/08/2023 Active 1 goal linked to scheduled/document ed intervention 1 goal intervention scheduled/document ed in this visit PT Impaired mobility Disciplines: PT 03/08/2023 Active 1 goal linked to scheduled/document ed intervention 1 goal intervention scheduled/document ed in this visit PT Impaired gait Disciplines: PT 03/08/2023 Active 2 goals linked to scheduled/document ed interventions 2 goal interventions scheduled/document ed in this visit PT Impaired balance Disciplines: PT 03/08/2023 Active 1 goal linked to scheduled/document ed intervention 1 goal intervention scheduled/document ed in this visit PT Learning Assessment Disciplines: PT 03/08/2023 Active 1 goal linked to scheduled/document ed intervention 1 goal intervention scheduled/document ed in this visit Goals Goal Associated Problem Outcome Goal Met? Visit Notes Patient/caregiver will demonstrate ability to obtain, store, identify and administer ordered medications, keep accurate medication list in home, and adhere to medication schedule Description: Patient/caregiver will demonstrate ability to obtain, store, identify and administer ordered medications, keep accurate medication list in home, and adhere to medication schedule by 05/05/23. Medication Education No Patient/caregiver will be able to identify and report symptoms of sepsis Description: Patient/caregiver will be able to identify signs/symptoms of sepsis infection and will verbalize actions to take if suspected by 05/05/23. Sepsis No Patient to maintain parameters within physician-specified ranges throughout certification period Physician Specific Parameters No Manage Risk for falls Description: Patient/caregiver will verbalize knowledge of individualized fall prevention strategies by 05/05/23. Risk for Falls No Manage Pain Description: Patient/caregiver will verbalize knowledge and understanding of appropriate techniques to control pain, including pain medication and non-pharmacological techniques. Patient will verbalize or demonstrate an acceptable level of pain as evidenced by a pain score of 0/10 and improvement in ability to perform activities of daily living to be achieved by 05/05/23. Pain No Manage discharge planning Description: Patient/caregiver will verbalize understanding of ongoing discharge plan provided related to disease management, arrangements for outpatient and/or community services, obtaining medications, supplies, and DME, as needed throughout certification period. Discharge No Improved Muscle Performance and/or ROM Description: LTG: Patient will demonstrate improved muscle performance to meet functional goals as evidenced by improved 30 second chair rise score to 8 reps, to be achieved by 04/06/23. PT reassessment completed, new achieve by date 04/27/2023 LTG: Patient and/or caregiver will verbalize/demonstrate independence with home exercise program, to improve functional mobility, to be achieved by 04/06/23. PT reassessment completed, new achieve by date 04/27/2023 PT Impaired muscle performance and/or ROM No Improved Transfers Description: STG: Patient will demonstrate safe transfers to/from bed, chair and couch independently with AD, to be achieved by 03/30/23. PT reassessment completed, new achieve by date 04/27/2023 PT Impaired mobility No Improved Stair Climbing Description: LTG: Patient will demonstrate improved stair negotiation as evidenced by ascend/descend 3 steps with railing independently, to safely exit home, to be achieved by 04/06/23. PT reassessment completed, new achieve by date 04/27/2023 PT Impaired gait No Improved Gait Description: salvage determiner goal: Patient will demonstrate improved gait ability as evidenced by ambulation 200 feet with least restrictive AD independently, to return to safe household and community ambulation, to be achieved by04/06/23. PT reassessment completed, new achieve by date 04/27/2023 PT Impaired gait No Improved Balance Description: correction goal: Patient will demonstrate improved standingbalance and functional ability as evidenced by TUG score </=14 sec, to be achieved by 04/06/23. PT reassessment completed, goal updated to TUG score in 12 seconds or less to reduce risk for falls, to be achieved by 04/27/2023 PT Impaired balance No Demonstrate understanding of education Description: Patient and/or caregiver will understand educational instruction to be achieved by 04/06/23. PT reassessment completed, new achieve by date 04/27/2023 PT Learning Assessment No Interventions Intervention Associated Problem/Goal Status Variance Visit Notes Medication Education Description: Evaluate/instruct patient/caregiver on obtaining, storing, identifying and administering ordered medications as well as keeping accurate medication list in the home and adhereing to medication schedule Problem:Medication Education Goal:Patient/caregive r will demonstrate ability to obtain, store, identify and administer ordered medications, keep accurate medication list in home, and adhere to medication schedule Completed Patient instructed on adhering to medication schedule. Risk of Sepsis Description: Patient is at risk for sepsis. Monitor closely for s/s of sepsis. Problem:Sepsis Goal:Patient/caregive r will be able to identify and report symptoms of sepsis Completed SPO2 Description: Notify Dr. Kurt Saravia MD if pulse ox is <92% at rest. Problem:Physician Specific Parameters Goal:Patient to maintain parameters within physician-specified ranges throughout certification period Completed Instruct on individual fall risk factors and strategies to prevent falls and injuries caused by falls. Problem:Risk for Falls Goal:Manage Risk for falls Completed PT: Patient instructed on Eliminating Environmental Hazards: Keep pathways clear and Remove unsafe rugs Managing Impaired Functional Mobility: Use assistive device(s): rollator walker and Caregiver to provide assist with: Ambulation, Steps, Transfers and ADL/IADLs Managing Pain Instruct on pain and instruct on strategies to control pain Problem:Pain Goal:Manage Pain Completed patient instructed on techniques to control pain including Pharmacological measures and Non-Pharmacological measures; rest, positioning/elevation, mobility/therapeutic exercise and use of DME/assistive devices. Instruct on ongoing discharge plan Problem:Discharge Goal:Manage discharge planning Completed Ongoing Discharge plan: Discharge plan discussed with patient including frequency and duration for home PT and plan for transition to: caregiver assistance. [facility] signed this date. Patient in agreement with PT agency dc next visit, copy left in home with patient Physical Therapy Therapeutic Exercises Problem:PT Impaired muscle performance and/or ROM Goal:Improved Muscle Performance and/or ROM Completed Patient instructed in standing HEP this date with BUE support. Standing: heel raises, marching, hip abduction, hip extension and mini squats x 10 reps bilaterally. SLS and tandem stance x 30 seconds bilaterally Verbal, visual and tactile cues provided for proper technique and pacing for exercises this date. Instructed patient in upright posture throughout all exercises. Educated patient on importance of performing HEP 2 to 3 times daily in order to improve strength for functional mobility. Also instructed patient on increasing short distance ambulation frequency to at least once every 1 to 2 hours during the day in order to improve activity tolerance and endurance. Physical Therapy Transfer Training Problem:PT Impaired mobility Goal:Improved Transfers Completed Transfer training and instruction to patient on safe transfers to and from chair with supervision and verbal cues for proper hand and foot placement. Recommended on the following adaptive equipment/durable medical equipment: walker. Physical Therapy Stair Training Problem:PT Impaired gait Goal:Improved Stair Climbing Completed Stair training and instruction to patient on safe stair climbing, ascend/descend 3 steps, without railing with supervision and verbal cues for proper step placement and holding door frame/wall for support. Physical Therapy Gait Training Problem:PT Impaired gait Goal:Improved Gait Completed Gait training and instruction to patient on safe ambulation with no device for multiple distances up to approx 200 feet on level and unlevel surfaces with supervision, with verbal cues for corrections of gait deviations including keeping pathways straight. Physical Therapy Balance Training Problem:PT Impaired balance Goal:Improved Balance Completed Patient instructed in standing HEP this date with BUE support. Standing: heel raises, marching, hip abduction, hip extension and mini squats x 10 reps bilaterally. SLS and tandem stance x 30 seconds bilaterally Verbal, visual and tactile cues provided for proper technique and pacing for exercises this date. Instructed patient in upright posture throughout all exercises. Educated patient on importance of performing HEP 2 to 3 times daily in order to improve strength for functional mobility. Also instructed patient on increasing short distance ambulation frequency to at least once every 1 to 2 hours during the day in order to improve activity tolerance and endurance. Instruct and educate on knowledge deficits Problem:PT Learning Assessment Goal:Demonstrate understanding of education Completed patient verbalize and/or demonstrate understanding of physical therapy education including pain management. Education methods include: verbal cues, tactile cues, written instructions, visual cues and teach back. Further education required to improve knowledge and compliance with fall prevention strategies, home safety, functional activity and home exercise program. [facility] Visit Details Visit Type -SN ROUTINE Discipline -Prison Problems Problem Description Start Date Status Goals Interve ntions Medication Education Disciplines: Skilled Services 03/07/2023 Active 1 goal linked to scheduled/documen gonzalez intervention 1 goal intervention scheduled/document ed in this visit Sepsis Disciplines: Skilled Services 03/07/2023 Active 1 goal linked to scheduled/documen gonzalez intervention 1 goal intervention scheduled/document ed in this visit Declined Referral Disciplines: Skilled Services 03/07/2023 Active 1 goal linked to scheduled/documen gonzalez intervention 1 goal intervention scheduled/document ed in this visit Physician Specific Parameters Disciplines: Skilled Services 03/07/2023 Active 1 goal linked to scheduled/documen gonzalez intervention 1 goal intervention scheduled/document ed in this visit Risk for Falls Disciplines: Skilled Services 03/07/2023 Active 1 goal linked to scheduled/documen gonzalez intervention 1 goal intervention scheduled/document ed in this visit Pain Disciplines: Skilled Services 03/07/2023 Active 1 goal linked to scheduled/documen gonzalez intervention 1 goal intervention scheduled/document ed in this visit Nutrition/Hydration Disciplines: Skilled Services 03/07/2023 Active 1 goal linked to scheduled/documen gonzalez intervention 1 goal intervention scheduled/document ed in this visit High Risk Medications Disciplines: Skilled Services 03/07/2023 Active 1 goal linked to scheduled/documen gonzalez intervention 1 goal intervention scheduled/document ed in this visit Discharge Disciplines: Skilled Services 03/07/2023 Active 1 goal linked to scheduled/documen gonzalez intervention 1 goal intervention scheduled/document ed in this visit SN Cardiovascular Condition Disciplines: SN 03/07/2023 Active 1 goal linked to scheduled/documen gonzalez intervention 1 goal intervention scheduled/document ed in this visit SN Learning Assessment Disciplines: SN 03/07/2023 Active 1 goal linked to scheduled/documen gonzalez intervention 1 goal intervention scheduled/document ed in this visit SN Genitourinary disease process Disciplines: SN 03/07/2023 Active 1 goal linked to scheduled/documen gonzalez intervention 1 goal intervention scheduled/document ed in this visit SN Muscuoskeltal Disease Process Disciplines: 03/07/2023 Active 1 goal linked to scheduled/documen gonzalez intervention 1 goal intervention scheduled/document ed in this visit Goals Goal Associated Problem Outcome Goal Met? Visit Notes Patient/caregiver will demonstrate ability to obtain, store, identify and administer ordered medications, keep accurate medication list in home, and adhere to medication schedule Description: Patient/caregiver will demonstrate ability to obtain, store, identify and administer ordered medications, keep accurate medication list in home, and adhere to medication schedule by 05/05/23. Medication Education No Patient/caregiver will be able to identify and report symptoms of sepsis Description: Patient/caregiver will be able to identify signs/symptoms of sepsis infection and will verbalize actions to take if suspected by 05/05/23. Sepsis No Patient has declined referred services Declined Referral No Patient to maintain parameters within physician-specified ranges throughout certification period Physician Specific Parameters No Manage Risk for falls Description: Patient/caregiver will verbalize knowledge of individualized fall prevention strategies by 05/05/23. Risk for Falls No Manage Pain Description: Patient/caregiver will verbalize knowledge and understanding of appropriate techniques to control pain, including pain medication and non-pharmacological techniques. Patient will verbalize or demonstrate an acceptable level of pain as evidenced by a pain score of 0/10 and improvement in ability to perform activities of daily living to be achieved by 05/05/23. Pain No Manage Nutrition/Hydration Description: Patient/caregiver will verbalize/demonstrate knowledge of prescribed diet and/or healthy nutrition to be achieved by 05/05/23. Nutrition/Hydration No Patient/caregiver will teach back high risk medication side effect and precaution education High Risk Medications No Manage discharge planning Description: Patient/caregiver will verbalize understanding of ongoing discharge plan provided related to disease management, arrangements for outpatient and/or community services, obtaining medications, supplies, and DME, as needed throughout certification period. Discharge No Improved management of cardiovascular disease Description: Improve patient/caregiver management of cardiac disease as evidenced by patient/caregiver ability to teach back cardiac management strategies by 05/05/23. SN Cardiovascular Condition No Demonstrate understanding of education Description: Patient and/or caregiver will verbalize understanding of educational instruction provided throughout certification period. SN Learning Assessment No Patient/Caregiver will verbalize understanding and demonstrate improved management of genitourinary disease/condition. Description: Patient/Caregiver will state understanding of genitourinary disease/condition and be able to teach back management strategies by 05/05/23. SN Genitourinary disease process No Patient will verbalize understanding of Musculoskeletal disease process, usp effects and effective management strategies Description: Patient will verbalize understanding of Musculoskeletal disease process, terminal operator effects and effective management strategies by 05/05/23. SN Muscuoskeltal Disease Process No Interventions Intervention Associated Problem/Goal Status Variance Visit Notes Medication Education Description: Evaluate/instruct patient/caregiver on obtaining, storing, identifying and administering ordered medications as well as keeping accurate medication list in the home and adhereing to medication schedule Problem:Medication Education Goal:Patient/caregive r will demonstrate ability to obtain, store, identify and administer ordered medications, keep accurate medication list in home, and adhere to medication schedule Completed Patient instructed on importance of keeping accurate medication list in home, adhering to medication schedule and proper storage of medications. Risk of Sepsis Description: Patient is at risk for sepsis. Monitor closely for s/s of sepsis. 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 Kurt Saravia MD if pulse ox is <92% at rest. Problem:Physician Specific Parameters Goal:Patient to maintain parameters within physician-specified ranges throughout certification period Completed Instruct on individual fall risk factors and strategies to prevent falls and injuries caused by falls. Problem:Risk for Falls Goal:Manage Risk for falls Completed SN: Patient instructed on Eliminating Environmental Hazards: Keep pathways clear, Keep pets out of pathways, Keep rooms and walkways well lit, Wear supportive shoes or non-skid socks and Keep frequently used items within reach Instruct on pain and instruct on strategies to control pain Problem:Pain Goal:Manage Pain Completed patient instructed on techniques to control pain including Pharmacological measures and Non-Pharmacological measures; rest, positioning/elevation and mobility/therapeutic exercise. Define patient s appetite/hydration status and implement strategies to improve compliance with prescribed diet and/or healthy nutrition. Problem:Nutrition/Hyd ration Goal:Manage Nutrition/Hydration Completed reinforced patient on implementing strategies to comply with prescribed diet, healthy nutrition and adequate hydration Antiplatelet- educated on high risk medication Problem:High Risk Medications Goal:Patient/caregive r will teach back high risk medication side effect and precaution education Completed patient educated on taking medication(s) as prescribed by provider. Do not stop medication or alter doses without speaking with your provider. Discuss medication effectiveness or side effect concerns with your provider and home care team. Discuss all medications you are taking, even [id number] medicines, with your provider and pharmacist since many drugs can interact with antiplatelet medications. If you forget to take a dose, DO NOT take a double dose. Take the missed dose as soon as possible on the same day. DO NOT take a double dose the next day to make up for the missed dose. Watch for signs of abnormal or excessive bleeding and bruising (refer to Bleeding Precautions education). Call your health care provider right away if you suspect something is wrong. Instruct on ongoing discharge plan Problem:Discharge Goal:Manage discharge planning Completed Ongoing Discharge plan: Discharge plan discussed with patient including frequency and duration for home SN and plan for transition to: caregiver assistance. Instruct on cardiovascular disease process and management of condition Description: Patient has following cardiac diagnosis(es): Hypertension. Problem:SN Cardiovascular Condition Goal:Improved management of cardiovascular disease Completed patient instructed on cardiac disease process, self monitoring & symptom reporting and Cardiac Diet. Instruct and educate on knowledge deficits Problem:SN Learning Assessment Goal:Demonstrate understanding of education Completed patient verbalize and/or demonstrate understanding of nursing education completed today. Education methods include: verbal cues. Further education required to improve knowledge and compliance with fall prevention/home safety strategies and genitourinary care management. Incontinence- Instruct Patient/Caregiver on measures to manage urinary incontinence Problem:SN Genitourinary disease process Goal:Patient/Caregive r will verbalize understanding and demonstrate improved management of genitourinary disease/condition. Completed patient instructed on measures to manage Urinary incontinence including: use of pads/protective garments, scheduled bathroom trips, bladder training and skin care after incontinence episode. Assess/Instruct Patient/Caregiver understanding of Musculoskeletal disease process Description: Assess patient/caregiver understanding of musculoskeletal disease process osteoarthritis, terminal operator effects and effective management strategies. Problem:SN Muscuoskeltal Disease Process Goal:Patient will verbalize understanding of Musculoskeletal disease process, usp effects and effective management strategies Completed Patient instructed on musculoskeletal disease process including: usp effects, effective management strategies and signs and symptoms of exacerbation of disease and actions to take should they occur. documented in this encounter [facility] Plan of care note* Visit Details Visit Type -SN DISC DC W VIS IT Discipline -Prison Problems Problem Description Start Date Status Goals Interve ntions Medication Education Disciplines: Skilled Services 03/07/2023 Active 1 goal linked to scheduled/docume nted intervention 1 goal intervention scheduled/documen gonzalez in this visit Sepsis Disciplines: Skilled Services 03/07/2023 Active 1 goal linked to scheduled/docume nted intervention 1 goal intervention scheduled/documen gonzalez in this visit Declined Referral Disciplines: Skilled Services 03/07/2023 Resolved on 04/23/2023 1 goal linked to scheduled/docume nted intervention 1 goal intervention scheduled/documen gonzalez in this visit Physician Specific Parameters Disciplines: Skilled Services 03/07/2023 Active 1 goal linked to scheduled/docume nted intervention 1 goal intervention scheduled/documen gonzalez in this visit Risk for Falls Disciplines: Skilled Services 03/07/2023 Active 1 goal linked to scheduled/docume nted intervention 1 goal intervention scheduled/documen gonzalez in this visit Pain Disciplines: Skilled Services 03/07/2023 Active 1 goal linked to scheduled/docume nted intervention 1 goal intervention scheduled/documen gonzalez in this visit Nutrition/Hydration Disciplines: Skilled Services 03/07/2023 Active 1 goal linked to scheduled/docume nted intervention 1 goal intervention scheduled/documen gonzalez in this visit High Risk Medications Disciplines: Skilled Services 03/07/2023 Active 1 goal linked to scheduled/docume nted intervention 1 goal intervention scheduled/documen gonzalez in this visit Discharge Disciplines: Skilled Services 03/07/2023 Active 1 goal linked to scheduled/docume nted intervention 1 goal intervention scheduled/documen gonzalez in this visit SN Cardiovascular Condition Disciplines: SN 03/07/2023 Resolved on 04/23/2023 1 goal linked to scheduled/docume nted intervention 1 goal intervention scheduled/documen gonzalez in this visit SN Learning Assessment Disciplines: SN 03/07/2023 Resolved on 04/23/2023 1 goal linked to scheduled/docume nted intervention 1 goal intervention scheduled/documen gonzalez in this visit SN Genitourinary disease process Disciplines: SN 03/07/2023 Resolved on 04/23/2023 1 goal linked to scheduled/docume nted intervention 1 goal intervention scheduled/documen gonzalez in this visit SN Muscuoskeltal Disease Process Disciplines: SN 03/07/2023 Resolved on 04/23/2023 1 goal linked to scheduled/docume nted intervention 1 goal intervention scheduled/documen gonzalez in this visit Goals Goal Associated Problem Outcome Goal Met? Visit Notes Patient/caregiver will demonstrate ability to obtain, store, identify and administer ordered medications, keep accurate medication list in home, and adhere to medication schedule Description: Patient/caregiver will demonstrate ability to obtain, store, identify and administer ordered medications, keep accurate medication list in home, and adhere to medication schedule by 05/05/23. Medication Education No Patient/caregiver will be able to identify and report symptoms of sepsis Description: Patient/caregiver will be able to identify signs/symptoms of sepsis infection and will verbalize actions to take if suspected by 05/05/23. Sepsis No Patient has declined referred services Declined Referral Completed Yes Patient to maintain parameters within physician-specified ranges throughout certification period Physician Specific Parameters No Manage Risk for falls Description: Patient/caregiver will verbalize knowledge of individualized fall prevention strategies by 05/05/23. Risk for Falls No Manage Pain Description: Patient/caregiver will verbalize knowledge and understanding of appropriate techniques to control pain, including pain medication and non-pharmacological techniques. Patient will verbalize or demonstrate an acceptable level of pain as evidenced by a pain score of 0/10 and improvement in ability to perform activities of daily living to be achieved by 05/05/23. Pain No Manage Nutrition/Hydration Description: Patient/caregiver will verbalize/demonstrate knowledge of prescribed diet and/or healthy nutrition to be achieved by 05/05/23. Nutrition/Hydration No Patient/caregiver will teach back high risk medication side effect and precaution education High Risk Medications No Manage discharge planning Description: Patient/caregiver will verbalize understanding of ongoing discharge plan provided related to disease management, arrangements for outpatient and/or community services, obtaining medications, supplies, and DME, as needed throughout certification period. Discharge No Improved management of cardiovascular disease Description: Improve patient/caregiver management of cardiac disease as evidenced by patient/caregiver ability to teach back cardiac management strategies by 05/05/23. SN Cardiovascular Condition Completed Yes Demonstrate understanding of education Description: Patient and/or caregiver will verbalize understanding of educational instruction provided throughout certification period. SN Learning Assessment Completed Yes Patient/Caregiver will verbalize understanding and demonstrate improved management of genitourinary disease/condition. Description: Patient/Caregiver will state understanding of genitourinary disease/condition and be able to teach back management strategies by 05/05/23. SN Genitourinary disease process Completed Yes Patient will verbalize understanding of Musculoskeletal disease process, usp effects and effective management strategies Description: Patient will verbalize understanding of Musculoskeletal disease process, usp effects and effective management strategies by 05/05/23. SN Muscuoskeltal Disease Process Completed Yes Interventions Intervention Associated Problem/Goal Status Variance Visit Notes Medication Education Description: Evaluate/instruct patient/caregiver on obtaining, storing, identifying and administering ordered medications as well as keeping accurate medication list in the home and adhereing to medication schedule Problem:Medication Education Goal:Patient/caregive r will demonstrate ability to obtain, store, identify and administer ordered medications, keep accurate medication list in home, and adhere to medication schedule Completed Patient instructed on importance of keeping accurate medication list in home, adhering to medication schedule and proper storage of medications. Risk of Sepsis Description: Patient is at risk for sepsis. Monitor closely for s/s of sepsis. 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 Kurt Saravia MD if pulse ox is <92% at rest. Problem:Physician Specific Parameters Goal:Patient to maintain parameters within physician-specified ranges throughout certification period Completed Instruct on individual fall risk factors and strategies to prevent falls and injuries caused by falls. Problem:Risk for Falls Goal:Manage Risk for falls Completed SN: Patient instructed on Eliminating Environmental Hazards: Keep pathways clear, Keep pets out of pathways, Keep rooms and walkways well lit, Wear supportive shoes or non-skid socks and Keep frequently used items within reach Instruct on pain and instruct on strategies to control pain Problem:Pain Goal:Manage Pain Completed patient instructed on techniques to control pain including Pharmacological measures and Non-Pharmacological measures; rest, positioning/elevation , mobility/therapeutic exercise, distraction, breathing/relaxation and use of DME/assistive devices. Define patient s appetite/hydration status and implement strategies to improve compliance with prescribed diet and/or healthy nutrition. Problem:Nutrition/Hyd ration Goal:Manage Nutrition/Hydration Completed reinforced patient on implementing strategies to comply with prescribed diet, healthy nutrition and adequate hydration Antiplatelet- educated on high risk medication Problem:High Risk Medications Goal:Patient/caregive r will teach back high risk medication side effect and precaution education Completed patient educated on taking medication(s) as prescribed by provider. Do not stop medication or alter doses without speaking with your provider. Discuss medication effectiveness or side effect concerns with your provider and home care team. Discuss all medications you are taking, even oxpw-nwl-kyqibpt medicines, with your provider and pharmacist since many drugs can interact with antiplatelet medications. If you forget to take a dose, DO NOT take a double dose. Take the missed dose as soon as possible on the same day. DO NOT take a double dose the next day to make up for the missed dose. Watch for signs of abnormal or excessive bleeding and bruising (refer to Bleeding Precautions education). Call your health care provider right away if you suspect something is wrong. Instruct on ongoing discharge plan Problem:Discharge Goal:Manage discharge planning Completed Ongoing Discharge plan: Discharge plan discussed with patient including frequency and duration for home SN and plan for transition to: caregiver assistance. Instruct on cardiovascular disease process and management of condition Description: Patient has following cardiac diagnosis(es): Hypertension. Problem:SN Cardiovascular Condition Goal:Improved management of cardiovascular disease Completed patient instructed on cardiac disease process, self monitoring & symptom reporting and Cardiac Diet. Instruct and educate on knowledge deficits Problem:SN Learning Assessment Goal:Demonstrate understanding of education Completed patient verbalize and/or demonstrate understanding of nursing education completed today. Education methods include: verbal cues. Further education required to improve knowledge and compliance with fall prevention/home safety strategies. Incontinence- Instruct Patient/Caregiver on measures to manage urinary incontinence Problem:SN Genitourinary disease process Goal:Patient/Caregive r will verbalize understanding and demonstrate improved management of genitourinary disease/condition. Completed patient instructed on measures to manage Urinary incontinence including: use of pads/protective garments, scheduled bathroom trips, bladder training and use of barrier cream. Assess/Instruct Patient/Caregiver understanding of Musculoskeletal disease process Description: Assess patient/caregiver understanding of musculoskeletal disease process osteoarthritis, usp effects and effective management strategies. Problem:SN Muscuoskeltal Disease Process Goal:Patient will verbalize understanding of Musculoskeletal disease process, terminal operator effects and effective management strategies Completed Patient instructed on musculoskeletal disease process including: terminal operator effects, effective management strategies and signs and symptoms of exacerbation of disease and actions to take should they occur. documented in this encounter [facility] for referral (narrative)* Diagnostic Procedure Only (Routine) - Pending Review Specialty Diagnoses / Procedures Referred By Contac t Referred To Contact BR IMAGING Diagnoses Encounter for screening mammogram for breast cancer Procedures BIANKA SCREENING SCREENING MAMMOGRAPHY BI 2-VIEW BREAST INC CAD Kurt Saravia MD [address] [place] [address] Br Imaging [address] [place] [address] Referral ID Status Reason Start Date Expiration Date Visits Requested Visits Authorized [id number] Pending Review Auto-Generat ed Referral 03/22/2022 04/20/2023 1 1 [facility] for referral (narrative)* Diagnostic Procedure Only (Routine) - Authorized Specialty Diagnoses / Procedures Referred By Contac t Referred To Contact XR IMAGING Diagnoses Dysphagia, unspecified type Procedures XR ESOPHAGRAM RADIOLOGIC EXAM ESOPHAGUS [place] [address] [place] [address] Xr Imaging Referral ID Status Reason Start Date Expiration Date Visits Requested Visits Authorized [id number] Authorized Auto-Generat ed Referral 09/10/2022 10/10/2023 1 1 [facility] for referral (narrative)* Outpatient Procedure (Routine) - Authorized Specialty Diagnoses / Procedures Referred By Zandraac t Referred To Contact [facility] Diagnoses Bilateral carotid artery stenosis Procedures US CAROTID ARTERIES FLETCHER VAS LAB DUPLEX SCAN EXTRACRANIAL ART COMPL BI STUDY Kurt Saravia MD [address] [place] [address] [facility] [place] [address] [place] [address] Referral ID Status Reason Start Date Expiration Date Visits Requested Visits Authorized [id number] Authorized Auto-Generat ed Referral 12/18/2022 1 1 * Medication Prior Authorization - Authorized Specialty Diagnoses / Procedures [facility] Kurt Saravia MD [address] [place] [address] Referral ID Status Reason Start Date Expiration Date V isits Requested Visits Authorized [id number] Authorized 06/21/2022 09/20/2023 1 1 [facility] for referral (narrative)* Diagnostic Procedure Only (Routine) - Closed Specialty Diagnoses / Procedures [facility] To [facility] XR IMAGING Diagnoses Dysphagia, unspecified type Procedures XR ESOPHAGRAM RADIOLOGIC EXAM ESOPHAGUS [place] [address] [place] [id number] Xr Imaging Referral ID Status Reason Start Date Expiration Date V isits Requested Visits Authorized [id number] Closed Auto-Generate d Referral 09/10/2022 10/10/2023 1 1 [facility] for referral (narrative)* Outpatient Procedure (Routine) - Pending Review Specialty Diagnoses / Procedures Referred By Yeison gutierrez Referred To Contact [facility] Diagnoses Weight loss Decreased appetite Nausea Procedures EGD DIAGNOSTIC ESOPHAGOGASTRODUODENOS COPY [place] [address] [place] [address] [facility] [place] [address] [place] [address] Referral ID Status Reason Start Date Expiration Date Visits Requested Visits Authorized [id number] Pending Review Auto-Generat ed Referral 12/06/2022 12/07/2023 1 1 [facility] for referral (narrative)* Diagnostic Procedure Only (Routine) - Pending Review Specialty Diagnoses / Procedures [facility] To Contact XR IMAGING Diagnoses Left-sided chest wall pain Procedures XR RIBS/CHEST 3V AP RIB/OBLS/CXR LEFT RADEX RIBS UNI W/POSTEROANT CH MINIMUM 3 VIEWS Saray Alexander PA-C [address] [place] [address] [place] [address] Referral ID Status Reason Start Date Expiration Date Visits Requested Visits Authorized [id number] Pending Review Auto-Generat ed Referral 03/10/2024 04/09/2025 1 1 [facility] for referral (narrative)* Outpatient Procedure (Routine) - Closed Specialty Diagnoses / Procedures Referred By Contac t Referred To Contact [facility] Diagnoses Weight loss Decreased appetite Nausea Procedures EGD DIAGNOSTIC ESOPHAGOGASTRODUODENOSCOP Y [place] [address] [place] [address] [facility] [address] [place] [address] Referral ID Status Reason Start Date Expiration Date V isits Requested Visits Authorized [id number] Closed Auto-Generate d Referral 12/11/2022 03/11/2023 1 1 [facility] for referral (narrative)* Diagnostic Procedure Only (Routine) - Closed Specialty Diagnoses / Procedures Referred By Contac t Referred To Contact XR IMAGING Diagnoses Neck pain Procedures XR CERV OTHER 4V AP/LAT/OBL RADEX SPINE CERVICAL 4 OR 5 VIEWS Mally Calzada PA-C [address] [place] [address] [place] [address] Referral ID Status Reason Start Date Expiration Date V isits Requested Visits Authorized [id number] Closed Auto-Generate d Referral 11/21/2022 12/21/2023 1 1 * Diagnostic Procedure Only (Routine) - Closed Specialty Diagnoses / Procedures Referred By Contac t Referred To Contact XR IMAGING Diagnoses Lumbar back pain Procedures XR LUMBAR GENERAL 3V AP/LAT/L5-S1 RADEX SPINE LUMBOSACRAL 2/3 VIEWS Mally Calzada PA-C [address] [place] [address] [place] [address] Referral ID Status Reason Start Date Expiration Date V isits Requested Visits Authorized [id number] Closed Auto-Generate d Referral 11/21/2022 12/21/2023 1 1 [facility] for visit Narrative* Diagnostic Procedure Only (Routine) - Closed Specialty Diagnoses / Procedures Referred By Contac t Referred To Contact XR IMAGING Diagnoses Dysphagia, unspecified type Procedures XR ESOPHAGRAM RADIOLOGIC EXAM ESOPHAGUS [place] [address] [place] [address] Xr Imaging Referral ID Status Reason Start Date Expiration Date V isits Requested Visits Authorized [id number] Closed Auto-Generate d Referral 09/10/2022 10/10/2023 1 1 [facility] for visit Narrative* Outpatient Procedure (Routine) - Closed Specialty Diagnoses / Procedures Referred By Contac t Referred To Contact [facility] Diagnoses Weight loss Decreased appetite Nausea Procedures EGD DIAGNOSTIC ESOPHAGOGASTRODUODENOSCOP Y [place]ANS[place] [address] [place] [address] [facility] [address] [place] [address] Referral ID Status Reason Start Date Expiration Date V isits Requested Visits Authorized [id number] Closed Auto-Generate d Referral 12/11/2022 03/11/2023 1 1 [facility] for visit Narrative* Diagnostic Procedure Only (Routine) - Closed Specialty Diagnoses / Procedures Referred By Contac t Referred To Contact XR IMAGING Diagnoses Neck pain Procedures XR CERV OTHER 4V AP/LAT/OBL RADEX SPINE CERVICAL 4 OR 5 VIEWS Mally Calzada PA-C [address] [place] [address] [place] [address] Referral ID Status Reason Start Date Expiration Date V isits Requested Visits Authorized [id number] Closed Auto-Generate d Referral 11/21/2022 12/21/2023 1 1 [facility] for visit Narrative* Diagnostic Procedure Only (Routine) - Closed Specialty Diagnoses / Procedures Referred By Contac t Referred To Contact XR IMAGING Diagnoses Left hip pain Procedures XR HIP GENERAL 3V PELV/AP/LAT LEFT RADEX HIP UNILATERAL WITH PELVIS 2-3 VIEWS Kurt Saravia MD [address] [place] [address] [place] [address] Referral ID Status Reason Start Date Expiration Date V isits Requested Visits Authorized [id number] Closed Auto-Generate d Referral 07/22/2024 08/21/2025 1 1 [facility] Summary Purpose Family History No Family History Records FoundNo Family History Records FoundNo Family History Records FoundNo Family History Records Found Advance Directives Documents on File Type Date Recorded 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 Advance Directives and Living Will Power of Work Order Detailer Documents on File Type Date Recorded 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 Advance Directive(s) 05/10/2021 7:48 PM Advance Directive(s) 01/24/2021 4:46 PM Advance Directive(s) 11/28/2020 2:14 PM Advance Directive(s) 04/21/2020 10:25 AM Advance Directive(s) 03/09/2020 3:54 PM Advance Directive(s) 11/04/2019 10:42 AM Advance Directive(s) 08/01/2018 1:58 AM Documents on File Type Date Recorded 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 Advance Directive(s) 05/10/2021 7:48 PM Advance Directive(s) 01/24/2021 4:46 PM Advance Directive(s) 11/28/2020 2:14 PM Advance Directive(s) 04/21/2020 10:25 AM Advance Directive(s) 03/09/2020 3:54 PM Advance Directive(s) 11/04/2019 10:42 AM Advance Directive(s) 08/01/2018 1:58 AM Latest Code Status on File Code Status Date Activated Date Inactivated Comments Full Code 03/07/2023 11:03 PM Latest Code Status on File Code Status Date Activated Date Inactivated Comments Full Code 03/07/2023 11:03 PM Latest Code Status on File Code Status Date Activated Date Inactivated Comments Full Code 03/07/2023 11:03 PM Latest Code Status on File Code Status Date Activated Date Inactivated Comments Full Code 03/07/2023 11:03 PM Latest Code Status on File Code Status Date Activated Date Inactivated Comments Full Code 03/07/2023 11:03 PM 11/09/2023 9:18 AM Latest Code Status on File Code Status Date Activated Date Inactivated Comments Full Code 03/07/2023 11:03 PM 11/09/2023 9:18 AM Date Activated Date Inactivated Comments 03/07/2023 11:03 PM 11/09/2023 9:18 AM Date Activated Date Inactivated Comments 03/07/2023 11:03 PM 11/09/2023 9:18 AM Discharge Instructions * Attachments The following attachments cannot be sent through Care Everywhere. * Musculoskeletal Pain ([place]) * Osteoporosis ([place]) documented in this encounter Assessments Diagnosis Wrist pain, acute, right History of osteoporosis Personal history of other musculoskeletal disorders Reason for Referral Specialty Diagnoses / Procedures Referred By Contac t Referred To Contact Vascular Surgery Diagnoses Subclavian artery aneurysm (HCC) Procedures CONSULT TO VASCULAR SURGERY OFFICE/OUTPATIENT [facility] 60-74 MINUTES Kurt Saravia MD [address] [place] [id number] Referral ID Status Reason Start Date Expiration Date Visits Requested Visits Authorized [id number] Pending Review PCP Requested Referral 2 10/05/2023 1 1 Specialty Diagnoses / Procedures Referred By Contac t Referred To Contact CT IMAGING Diagnoses Dizziness Procedures CTA NECK W IVCON CT ANGIOGRAPHY NECK W/CONTRAST/NONCONTRAST Kurt Saravia MD [address] [place] [address] [address] Referral ID Status Reason Start Date Expiration Date Visits Requested Visits Authorized [id number] Authorized Auto-Generat ed Referral 12/04/2022 01/03/2024 1 1 Specialty Diagnoses / Procedures Referred By Contac t Referred To Contact CT IMAGING Diagnoses Dizziness Procedures CTA HEAD W IVCON CT ANGIOGRAPHY HEAD W/CONTRAST/NONCONTRAST Kurt Saravia MD [address] [place] [address] Referral ID Status Reason Start Date Expiration Date Visits Requested Visits Authorized [id number] Authorized Auto-Generat ed Referral 12/04/2022 01/03/2024 1 1 Specialty Diagnoses / Procedures Referred By Contac t Referred To Contact Neurology Diagnoses Cognitive impairment Dementia without behavioral disturbance (HCC) Procedures CONSULT TO NEUROLOGY OFFICE/OUTPATIENT [facility] 60-74 MINUTES Mally Calzada PA-C [address] [place] [address] Referral ID Status Reason Start Date Expiration Date Visits Requested Visits Authorized [id number] Pending Review PCP Requested Referral 12/20/2022 12/20/2023 1 1 Specialty Diagnoses / Procedures Referred By Contac t Referred To Contact MR IMAGING Diagnoses Cognitive impairment, mild, so stated Procedures MRI BRAIN WO IVCON MRI BRAIN BRAIN STEM W/O CONTRAST MATERIAL Mally Calzada PA-C [address] [place] [address] Mr Imaging [facility] Referral ID Status Reason Start Date Expiration Date V isits Requested Visits Authorized [id number] Closed Auto-Generate d Referral 11/21/2022 12/21/2023 1 1 Specialty Diagnoses / Procedures Referred By Contac t Referred To Contact Neurology Diagnoses Dementia without behavioral disturbance (HCC) Primary insomnia Procedures CONSULT TO NEUROLOGY OFFICE/OUTPATIENT [facility] 60-74 MINUTES Kurt Saravia MD [address] [place], [place] [id number] Referral ID Status Reason Start Date Expiration Date Visits Requested Visits Authorized [id number] Pending Review PCP Requested Referral 3 09/24/2024 1 1 Specialty Diagnoses / Procedures Referred By Contac t Referred To Contact [facility] Diagnoses Bilateral carotid artery stenosis Procedures US CAROTID ARTERIES FLETCHER VAS LAB DUPLEX SCAN EXTRACRANIAL ART COMPL BI STUDY Kurt Saravia MD [address] [place] [address] [facility] [place] [address] [place] [address] Referral ID Status Reason Start Date Expiration Date Visits Requested Visits Authorized [id number] Authorized Auto-Generat ed Referral 3 09/24/2024 1 1 Specialty Diagnoses / Procedures Referred By Contac t Referred To Contact Diagnoses 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 Dementia, unspecified dementia severity, unspecified dementia type, unspecified whether behavioral, psychotic, or mood disturbance or anxiety (HCC) Procedures CONSULT TO [facility] Mayank Quintanilla APRN.CLIENT SERVICES REPRESENTATIVE [address] [place] [address] Kamilah Newman MSW Referral ID Status Reason Start Date Expiration Date Visits Requested Visits Authorized [id number] Ref Not Required PCP Requested Referral 11/26/2023 02/24/2024 1 1 Specialty Diagnoses / Procedures Referred By Contac t Referred To Contact Diagnoses Falls frequently Balance problem Dementia without behavioral disturbance (HCC) Procedures CONSULT TO [facility] [place] [place] [address] [place] [address] [facility] [address] [place] [address] Referral ID Status Reason Start Date Expiration Date Visits Requested Visits Authorized [id number] Pending Review PCP Requested Referral 04/21/2024 07/20/2024 1 1 Specialty Diagnoses / Procedures Referred By Contac t Referred To Contact [facility] Diagnoses Vertigo Procedures CONSULT TO PHYSICAL THERAPY PHYSICAL THERAPY EVALUATION HIGH COMPLEX 45 MINS Kurt Saravia MD [address] [place] [address] [facility] [address] [address] Referral ID Status Reason Start Date Expiration Date Visits Requested Visits Authorized [id number] Authorized Auto-Generat ed Referral 10/07/2023 10/06/2024 1 1 Specialty Diagnoses / Procedures Referred By Contac t Referred To Contact [facility] Diagnoses Acute bilateral low back pain without sciatica Left hip pain Procedures CONSULT TO PHYSICAL THERAPY PHYSICAL THERAPY EVALUATION HIGH COMPLEX 45 MINS Kurt Saravia MD [address] [place] [address] [facility] [place] [address] [place] [address] Referral ID Status Reason Start Date Expiration Date Visits Requested Visits Authorized [id number] Authorized Auto-Generat ed Referral 10/07/2023 10/06/2024 1 1 Specialty Diagnoses / Procedures Referred By Contac t Referred To Contact XR IMAGING Diagnoses Left hip pain Procedures XR HIP GENERAL 3V PELV/AP/LAT LEFT RADEX HIP UNILATERAL WITH PELVIS 2-3 VIEWS Kurt Saravia MD [address] [place] [address] [place] [address] Referral ID Status Reason Start Date Expiration Date V isits Requested Visits Authorized [id number] Closed Auto-Generate d Referral 07/22/2024 08/21/2025 1 1 Specialty Diagnoses / Procedures Referred By Contac t Referred To Contact XR IMAGING Diagnoses Acute bilateral low back pain without sciatica Procedures XR LUMBAR PARS DEFECT 4V AP/LAT/BOTH OBL RADEX SPINE LUMBOSACRAL MINIMUM 4 VIEWS Kurt Saravia MD [address] [place] [address] [place] [address] Referral ID Status Reason Start Date Expiration Date V isits Requested Visits Authorized [id number] Closed Auto-Generate d Referral 07/22/2024 08/21/2025 1 1 Additional Source Comments INFORMATION SOURCE (unrecogn ized section and content) DATE CREATED AUTHOR [facility]29/[facility] DATE CREATED AUTHOR AUTHOR'S ORGANIZ ATION 05/16/2020 [facility] DATE CREATED AUTHOR AUTHOR'S ORGANIZ ATION 11/12/2023 [facility] DATE CREATED AUTHOR AUTHOR'S ORGANIZ ATION 07/23/2024 [facility] Reason for Visit (unrecogniz ed section and content) Reason Comments Wrist Pain right Reason Onset Date Comments Refill Request 01/08/2022 Medicaiton request 01/08/2022 Reason Comments Medication Problem Reason Comments Cardiology Follow Up [facility]T Specialty Diagnoses / Procedures Referred By Contact Referred To Contact Cardiology / [facility] Diagnoses Follow up Procedures EST PATIENT Bolivar Cordoba DO [address] [place] [address] Bolivar Cordoba DO [address] [place] [address] Referral ID Status Reason Start Date Expiration Date Visits Re quested Visits Authorized [id number] Denied 03/01/2022 05/30/2022 1 0 Reason Comments Recheck 6 months Specialty Diagnoses / Procedures Referred By Contac t Referred To Contact Family Practice / FAMILY MEDICINE Diagnoses 6 month f/up Procedures 4C EST Kurt Saravia MD [address] [place] [address] Kurt Saravia MD [address] [place] [address] Referral ID Status Reason Start Date Expiration Date Visits Requested Visits Authorized [id number] Denied OON Notification Letter Clearance Not Met - 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 Advise to Postpone/Resched ule or Not Proceed 03/21/2022 06/19/2022 1 0 Reason Onset Date Comments Refill Request 05/07/2022 Reason Comments 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 Reason Comments Medicare Wellness Exam Reason Comments Carotid US Authorization Reason Comments Results Reason Comments Refill Request Reason Comments Follow Up Overactive Bladder Reason Comments Patient Update Reason Comments ER F/U Weakness/dizziness Reason Comments Patient Update Needs EGD Reason Comments Medication Request Reason Onset Date Comments Refill Request 01/02/2023 Reason Comments Recheck Reason Comments Pharmacy Call/Request Reason Comments Home Care Pt confirmation call Reason Comments Home Care MD to follow Reason Comments Transition Of Care Hypokalemia Specialty Diagnoses / Procedures Referred By Contac t Referred To Contact [facility] [address] [place] [address] Referral ID Status Reason Start Date Expiration Date Visits Re quested Visits Authorized [id number] 1 Reason Comments Home Care Reason Comments Home Care Unmade SN visit Reason Comments 6 Month Exam Reason Comments Home Care SN visit unmade Reason Comments Home Care Patient reported fal l Reason Comments Home Care Request to fax order for rollator Reason Comments Dysphagia Having trouble swall owing pills 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 Reason Comments New Patient Specialty Diagnoses / Procedures Referred By Contac t Referred To Contact Neurology Diagnoses Cognitive impairment Dementia without behavioral disturbance (HCC) Procedures CONSULT TO NEUROLOGY OFFICE/OUTPATIENT NEW HIGH MDM 60-74 MINUTES Mally Calzada PA-C [address] [place] [address] Referral ID Status Reason Start Date Expiration Date Visits Requested Visits Authorized [id number] Pending Review PCP Requested Referral 12/20/2022 12/20/2023 1 1 Reason Comments Medication Question Reason Onset Date Comments Community Monitoring Outreach 05/27/2023 En rollment CD Reason Onset Date Comments Refill Request 06/14/2023 Reason Comments memory issues Specialty Diagnoses / Procedures Referred By Contac t Referred To Contact FAMILY MEDICINE Diagnoses medication not working for dementia Procedures OFFICE CONSULT HIGH Kurt Saravia MD [address] [place] [address] [facility] [address] [place] [address] Referral ID Status Reason Start Date Expiration Date Visits Requested Visits Authorized [id number] Pending Review OON/Self Pay Override 06/25/2023 12/22/2023 1 1 Reason Comments Walker Reason Onset Date Comments [facility] 07/31/2023 Telephonic Outre ach Reason Onset Date Comments Refill Request 08/09/2023 Specialty Diagnoses / Procedures Referred By Contac t Referred To Contact MR IMAGING Diagnoses Cognitive impairment, mild, so stated Procedures MRI BRAIN WO IVCON MRI BRAIN BRAIN STEM W/O CONTRAST MATERIAL Mally Calzada PA-C [address] [place] [address] [place] [address] Referral ID Status Reason Start Date Expiration Date V isits Requested Visits Authorized [id number] Closed Auto-Generate d Referral 11/21/2022 12/21/2023 1 1 Reason Onset Date Comments [facility] 08/27/2023 Telephonic Outre ach Reason Onset Date Comments [facility] 08/28/2023 Telephonic Outre ach Reason Onset Date Comments Opened In Error 09/25/2023 Reason Comments F/U 6 months Reason Comments Chest Pain Reason Onset Date Comments [facility] 11/11/2023 Telephonic Outre ach Reason Comments ER F/U Reason Comments bh consult Reason Comments Appointment Reason Onset Date Comments Refill Request 11/29/2023 Reason Onset Date Comments [facility] 12/11/2023 Telephonic Outre ach Reason Onset Date Comments [facility] 12/12/2023 Telephonic Outre ach Reason Onset Date Comments Refill Request 01/07/2024 Reason Onset Date Comments [facility] 01/07/2024 Telephonic Outre ach Reason Onset Date Comments [facility] 01/08/2024 Telephonic Outre ach Reason Onset Date Comments Refill Request 01/29/2024 Reason Comments Foot Issue Reason Onset Date Comments [facility] 02/03/2024 Telephonic Outre ach Reason Comments ER F/U Reason Onset Date Comments [facility] 02/10/2024 Telephonic Outre ach Reason Onset Date Comments [facility] 02/11/2024 Telephonic Outre ach Reason Onset Date Comments [facility] 03/09/2024 Telephonic Outre ach Reason Onset Date Comments [facility] 03/10/2024 Telephonic Outre ach Reason Comments Follow Up New Patient Pt presented with fr iend, reported intermittent memory concerns, fall at home x4 days prior. Reason Onset Date Comments [facility] 03/24/2024 Telephonic Outre ach Reason Comments Anxiety Reason Onset Date Comments [facility] 04/30/2024 Telephonic Outre ach Reason Onset Date Comments [facility] 05/29/2024 Telephonic Outre ach Reason Comments home health calling Reason Onset Date Comments [facility] 06/23/2024 Telephonic Outre ach Reason Comments Orders Reason Onset Date Comments [facility] 07/21/2024 Telephonic Outre ach Reason Comments Pain, Back Reason Comments Appointment [facility] Source Comments (unrecognize d section and content) In the event this informatio n is protected by the Federal Confidentiality of Alcohol and Drug Abuse Patient Records regulations: The Federal rules restrict any use of the information to criminally investigate or prosecute any alcohol or drug abuse patient.[facility]In the event this information is protected by the Federal Confidentiality of Alcohol and Drug Abuse Patient Records regulations: The Federal rules restrict any use of the information to criminally investigate or prosecute any alcohol or drug abuse patient.[facility] HospitalIn the event this information is protected by the Federal Confidentiality of Alcohol and Drug Abuse Patient Records regulations: The Federal rules restrict any use of the information to criminally investigate or prosecute any alcohol or drug abuse patient.[facility] HospitalIn the event this information is protected by the Federal Confidentiality of Alcohol and Drug Abuse Patient Records regulations: The Federal rules restrict any use of the information to criminally investigate or prosecute any alcohol or drug abuse patient.[facility] HospitalIn the event this information is protected by the Federal Confidentiality of Alcohol and Drug Abuse Patient Records regulations: The Federal rules restrict any use of the information to criminally investigate or prosecute any alcohol or drug abuse patient.[facility] HospitalIn the event this information is protected by the Federal Confidentiality of Alcohol and Drug Abuse Patient Records regulations: The Federal rules restrict any use of the information to criminally investigate or prosecute any alcohol or drug abuse patient.[facility] HospitalIn the event this information is protected by the Federal Confidentiality of Alcohol and Drug Abuse Patient Records regulations: The Federal rules restrict any use of the information to criminally investigate or prosecute any alcohol or drug abuse patient.[facility] HospitalIn the event this information is protected by the Federal Confidentiality of Alcohol and Drug Abuse Patient Records regulations: The Federal rules restrict any use of the information to criminally investigate or prosecute any alcohol or drug abuse patient.[facility] HospitalIn the event this information is protected by the Federal Confidentiality of Alcohol and Drug Abuse Patient Records regulations: The Federal rules restrict any use of the information to criminally investigate or prosecute any alcohol or drug abuse patient.[facility] HospitalIn the event this information is protected by the Federal Confidentiality of Alcohol and Drug Abuse Patient Records regulations: The Federal rules restrict any use of the information to criminally investigate or prosecute any alcohol or drug abuse patient.[facility] HospitalIn the event this information is protected by the Federal Confidentiality of Alcohol and Drug Abuse Patient Records regulations: The Federal rules restrict any use of the information to criminally investigate or prosecute any alcohol or drug abuse patient.[facility] HospitalIn the event this information is protected by the Federal Confidentiality of Alcohol and Drug Abuse Patient Records regulations: The Federal rules restrict any use of the information to criminally investigate or prosecute any alcohol or drug abuse patient.[facility] HospitalIn the event this information is protected by the Federal Confidentiality of Alcohol and Drug Abuse Patient Records regulations: The Federal rules restrict any use of the information to criminally investigate or prosecute any alcohol or drug abuse patient.[facility] HospitalIn the event this information is protected by the Federal Confidentiality of Alcohol and Drug Abuse Patient Records regulations: The Federal rules restrict any use of the information to criminally investigate or prosecute any alcohol or drug abuse patient.[facility] HospitalIn the event this information is protected by the Federal Confidentiality of Alcohol and Drug Abuse Patient Records regulations: The Federal rules restrict any use of the information to criminally investigate or prosecute any alcohol or drug abuse patient.[facility] HospitalIn the event this information is protected by the Federal Confidentiality of Alcohol and Drug Abuse Patient Records regulations: The Federal rules restrict any use of the information to criminally investigate or prosecute any alcohol or drug abuse patient.[facility] HospitalIn the event this information is protected by the Federal Confidentiality of Alcohol and Drug Abuse Patient Records regulations: The Federal rules restrict any use of the information to criminally investigate or prosecute any alcohol or drug abuse patient.[facility] HospitalIn the event this information is protected by the Federal Confidentiality of Alcohol and Drug Abuse Patient Records regulations: The Federal rules restrict any use of the information to criminally investigate or prosecute any alcohol or drug abuse patient.[facility] HospitalIn the event this information is protected by the Federal Confidentiality of Alcohol and Drug Abuse Patient Records regulations: The Federal rules restrict any use of the information to criminally investigate or prosecute any alcohol or drug abuse patient.[facility] HospitalIn the event this information is protected by the Federal Confidentiality of Alcohol and Drug Abuse Patient Records regulations: The Federal rules restrict any use of the information to criminally investigate or prosecute any alcohol or drug abuse patient.[facility] HospitalIn the event this information is protected by the Federal Confidentiality of Alcohol and Drug Abuse Patient Records regulations: The Federal rules restrict any use of the information to criminally investigate or prosecute any alcohol or drug abuse patient.[facility] HospitalIn the event this information is protected by the Federal Confidentiality of Alcohol and Drug Abuse Patient Records regulations: The Federal rules restrict any use of the information to criminally investigate or prosecute any alcohol or drug abuse patient.[facility] HospitalIn the event this information is protected by the Federal Confidentiality of Alcohol and Drug Abuse Patient Records regulations: The Federal rules restrict any use of the information to criminally investigate or prosecute any alcohol or drug abuse patient.[facility] HospitalIn the event this information is protected by the Federal Confidentiality of Alcohol and Drug Abuse Patient Records regulations: The Federal rules restrict any use of the information to criminally investigate or prosecute any alcohol or drug abuse patient.[facility] HospitalIn the event this information is protected by the Federal Confidentiality of Alcohol and Drug Abuse Patient Records regulations: The Federal rules restrict any use of the information to criminally investigate or prosecute any alcohol or drug abuse patient.[facility] HospitalIn the event this information is protected by the Federal Confidentiality of Alcohol and Drug Abuse Patient Records regulations: The Federal rules restrict any use of the information to criminally investigate or prosecute any alcohol or drug abuse patient.[facility] HospitalIn the event this information is protected by the Federal Confidentiality of Alcohol and Drug Abuse Patient Records regulations: The Federal rules restrict any use of the information to criminally investigate or prosecute any alcohol or drug abuse patient.[facility] HospitalIn the event this information is protected by the Federal Confidentiality of Alcohol and Drug Abuse Patient Records regulations: The Federal rules restrict any use of the information to criminally investigate or prosecute any alcohol or drug abuse patient.[facility] HospitalIn the event this information is protected by the Federal Confidentiality of Alcohol and Drug Abuse Patient Records regulations: The Federal rules restrict any use of the information to criminally investigate or prosecute any alcohol or drug abuse patient.[facility] HospitalIn the event this information is protected by the Federal Confidentiality of Alcohol and Drug Abuse Patient Records regulations: The Federal rules restrict any use of the information to criminally investigate or prosecute any alcohol or drug abuse patient.[facility] HospitalIn the event this information is protected by the Federal Confidentiality of Alcohol and Drug Abuse Patient Records regulations: The Federal rules restrict any use of the information to criminally investigate or prosecute any alcohol or drug abuse patient.[facility] HospitalIn the event this information is protected by the Federal Confidentiality of Alcohol and Drug Abuse Patient Records regulations: The Federal rules restrict any use of the information to criminally investigate or prosecute any alcohol or drug abuse patient.[facility] HospitalIn the event this information is protected by the Federal Confidentiality of Alcohol and Drug Abuse Patient Records regulations: The Federal rules restrict any use of the information to criminally investigate or prosecute any alcohol or drug abuse patient.[facility] HospitalIn the event this information is protected by the Federal Confidentiality of Alcohol and Drug Abuse Patient Records regulations: The Federal rules restrict any use of the information to criminally investigate or prosecute any alcohol or drug abuse patient.[facility] HospitalIn the event this information is protected by the Federal Confidentiality of Alcohol and Drug Abuse Patient Records regulations: The Federal rules restrict any use of the information to criminally investigate or prosecute any alcohol or drug abuse patient.[facility] HospitalIn the event this information is protected by the Federal Confidentiality of Alcohol and Drug Abuse Patient Records regulations: The Federal rules restrict any use of the information to criminally investigate or prosecute any alcohol or drug abuse patient.[facility] HospitalIn the event this information is protected by the Federal Confidentiality of Alcohol and Drug Abuse Patient Records regulations: The Federal rules restrict any use of the information to criminally investigate or prosecute any alcohol or drug abuse patient.[facility] HospitalIn the event this information is protected by the Federal Confidentiality of Alcohol and Drug Abuse Patient Records regulations: The Federal rules restrict any use of the information to criminally investigate or prosecute any alcohol or drug abuse patient.[facility] HospitalIn the event this information is protected by the Federal Confidentiality of Alcohol and Drug Abuse Patient Records regulations: The Federal rules restrict any use of the information to criminally investigate or prosecute any alcohol or drug abuse patient.[facility] HospitalIn the event this information is protected by the Federal Confidentiality of Alcohol and Drug Abuse Patient Records regulations: The Federal rules restrict any use of the information to criminally investigate or prosecute any alcohol or drug abuse patient.[facility] HospitalIn the event this information is protected by the Federal Confidentiality of Alcohol and Drug Abuse Patient Records regulations: The Federal rules restrict any use of the information to criminally investigate or prosecute any alcohol or drug abuse patient.[facility] HospitalIn the event this information is protected by the Federal Confidentiality of Alcohol and Drug Abuse Patient Records regulations: The Federal rules restrict any use of the information to criminally investigate or prosecute any alcohol or drug abuse patient.[facility] HospitalIn the event this information is protected by the Federal Confidentiality of Alcohol and Drug Abuse Patient Records regulations: The Federal rules restrict any use of the information to criminally investigate or prosecute any alcohol or drug abuse patient.[facility] HospitalIn the event this information is protected by the Federal Confidentiality of Alcohol and Drug Abuse Patient Records regulations: The Federal rules restrict any use of the information to criminally investigate or prosecute any alcohol or drug abuse patient.[facility] HospitalIn the event this information is protected by the Federal Confidentiality of Alcohol and Drug Abuse Patient Records regulations: The Federal rules restrict any use of the information to criminally investigate or prosecute any alcohol or drug abuse patient.[facility] HospitalIn the event this information is protected by the Federal Confidentiality of Alcohol and Drug Abuse Patient Records regulations: The Federal rules restrict any use of the information to criminally investigate or prosecute any alcohol or drug abuse patient.[facility] HospitalIn the event this information is protected by the Federal Confidentiality of Alcohol and Drug Abuse Patient Records regulations: The Federal rules restrict any use of the information to criminally investigate or prosecute any alcohol or drug abuse patient.[facility] HospitalIn the event this information is protected by the Federal Confidentiality of Alcohol and Drug Abuse Patient Records regulations: The Federal rules restrict any use of the information to criminally investigate or prosecute any alcohol or drug abuse patient.[facility] HospitalIn the event this information is protected by the Federal Confidentiality of Alcohol and Drug Abuse Patient Records regulations: The Federal rules restrict any use of the information to criminally investigate or prosecute any alcohol or drug abuse patient.[facility] HospitalIn the event this information is protected by the Federal Confidentiality of Alcohol and Drug Abuse Patient Records regulations: The Federal rules restrict any use of the information to criminally investigate or prosecute any alcohol or drug abuse patient.[facility] HospitalIn the event this information is protected by the Federal Confidentiality of Alcohol and Drug Abuse Patient Records regulations: The Federal rules restrict any use of the information to criminally investigate or prosecute any alcohol or drug abuse patient.[facility] HospitalIn the event this information is protected by the Federal Confidentiality of Alcohol and Drug Abuse Patient Records regulations: The Federal rules restrict any use of the information to criminally investigate or prosecute any alcohol or drug abuse patient.[facility] HospitalIn the event this information is protected by the Federal Confidentiality of Alcohol and Drug Abuse Patient Records regulations: The Federal rules restrict any use of the information to criminally investigate or prosecute any alcohol or drug abuse patient.[facility] HospitalIn the event this information is protected by the Federal Confidentiality of Alcohol and Drug Abuse Patient Records regulations: The Federal rules restrict any use of the information to criminally investigate or prosecute any alcohol or drug abuse patient.[facility] HospitalIn the event this information is protected by the Federal Confidentiality of Alcohol and Drug Abuse Patient Records regulations: The Federal rules restrict any use of the information to criminally investigate or prosecute any alcohol or drug abuse patient.[facility] HospitalIn the event this information is protected by the Federal Confidentiality of Alcohol and Drug Abuse Patient Records regulations: The Federal rules restrict any use of the information to criminally investigate or prosecute any alcohol or drug abuse patient.[facility] HospitalIn the event this information is protected by the Federal Confidentiality of Alcohol and Drug Abuse Patient Records regulations: The Federal rules restrict any use of the information to criminally investigate or prosecute any alcohol or drug abuse patient.[facility] HospitalIn the event this information is protected by the Federal Confidentiality of Alcohol and Drug Abuse Patient Records regulations: The Federal rules restrict any use of the information to criminally investigate or prosecute any alcohol or drug abuse patient.[facility] HospitalIn the event this information is protected by the Federal Confidentiality of Alcohol and Drug Abuse Patient Records regulations: The Federal rules restrict any use of the information to criminally investigate or prosecute any alcohol or drug abuse patient.[facility] HospitalIn the event this information is protected by the Federal Confidentiality of Alcohol and Drug Abuse Patient Records regulations: The Federal rules restrict any use of the information to criminally investigate or prosecute any alcohol or drug abuse patient.[facility] HospitalIn the event this information is protected by the Federal Confidentiality of Alcohol and Drug Abuse Patient Records regulations: The Federal rules restrict any use of the information to criminally investigate or prosecute any alcohol or drug abuse patient.[facility] HospitalIn the event this information is protected by the Federal Confidentiality of Alcohol and Drug Abuse Patient Records regulations: The Federal rules restrict any use of the information to criminally investigate or prosecute any alcohol or drug abuse patient.[facility] HospitalIn the event this information is protected by the Federal Confidentiality of Alcohol and Drug Abuse Patient Records regulations: The Federal rules restrict any use of the information to criminally investigate or prosecute any alcohol or drug abuse patient.[facility] HospitalIn the event this information is protected by the Federal Confidentiality of Alcohol and Drug Abuse Patient Records regulations: The Federal rules restrict any use of the information to criminally investigate or prosecute any alcohol or drug abuse patient.[facility] HospitalIn the event this information is protected by the Federal Confidentiality of Alcohol and Drug Abuse Patient Records regulations: The Federal rules restrict any use of the information to criminally investigate or prosecute any alcohol or drug abuse patient.[facility] HospitalIn the event this information is protected by the Federal Confidentiality of Alcohol and Drug Abuse Patient Records regulations: The Federal rules restrict any use of the information to criminally investigate or prosecute any alcohol or drug abuse patient.[facility] HospitalIn the event this information is protected by the Federal Confidentiality of Alcohol and Drug Abuse Patient Records regulations: The Federal rules restrict any use of the information to criminally investigate or prosecute any alcohol or drug abuse patient.[facility] HospitalIn the event this information is protected by the Federal Confidentiality of Alcohol and Drug Abuse Patient Records regulations: The Federal rules restrict any use of the information to criminally investigate or prosecute any alcohol or drug abuse patient.[facility] HospitalIn the event this information is protected by the Federal Confidentiality of Alcohol and Drug Abuse Patient Records regulations: The Federal rules restrict any use of the information to criminally investigate or prosecute any alcohol or drug abuse patient.[facility] HospitalIn the event this information is protected by the Federal Confidentiality of Alcohol and Drug Abuse Patient Records regulations: The Federal rules restrict any use of the information to criminally investigate or prosecute any alcohol or drug abuse patient.[facility] HospitalIn the event this information is protected by the Federal Confidentiality of Alcohol and Drug Abuse Patient Records regulations: The Federal rules restrict any use of the information to criminally investigate or prosecute any alcohol or drug abuse patient.[facility] HospitalIn the event this information is protected by the Federal Confidentiality of Alcohol and Drug Abuse Patient Records regulations: The Federal rules restrict any use of the information to criminally investigate or prosecute any alcohol or drug abuse patient.[facility] HospitalIn the event this information is protected by the Federal Confidentiality of Alcohol and Drug Abuse Patient Records regulations: The Federal rules restrict any use of the information to criminally investigate or prosecute any alcohol or drug abuse patient.[facility] HospitalIn the event this information is protected by the Federal Confidentiality of Alcohol and Drug Abuse Patient Records regulations: The Federal rules restrict any use of the information to criminally investigate or prosecute any alcohol or drug abuse patient.[facility] HospitalIn the event this information is protected by the Federal Confidentiality of Alcohol and Drug Abuse Patient Records regulations: The Federal rules restrict any use of the information to criminally investigate or prosecute any alcohol or drug abuse patient.[facility] HospitalIn the event this information is protected by the Federal Confidentiality of Alcohol and Drug Abuse Patient Records regulations: The Federal rules restrict any use of the information to criminally investigate or prosecute any alcohol or drug abuse patient.[facility] HospitalIn the event this information is protected by the Federal Confidentiality of Alcohol and Drug Abuse Patient Records regulations: The Federal rules restrict any use of the information to criminally investigate or prosecute any alcohol or drug abuse patient.[facility] HospitalIn the event this information is protected by the Federal Confidentiality of Alcohol and Drug Abuse Patient Records regulations: The Federal rules restrict any use of the information to criminally investigate or prosecute any alcohol or drug abuse patient.[facility] HospitalIn the event this information is protected by the Federal Confidentiality of Alcohol and Drug Abuse Patient Records regulations: The Federal rules restrict any use of the information to criminally investigate or prosecute any alcohol or drug abuse patient.[facility] HospitalIn the event this information is protected by the Federal Confidentiality of Alcohol and Drug Abuse Patient Records regulations: The Federal rules restrict any use of the information to criminally investigate or prosecute any alcohol or drug abuse patient.[facility] HospitalIn the event this information is protected by the Federal Confidentiality of Alcohol and Drug Abuse Patient Records regulations: The Federal rules restrict any use of the information to criminally investigate or prosecute any alcohol or drug abuse patient.[facility] HospitalIn the event this information is protected by the Federal Confidentiality of Alcohol and Drug Abuse Patient Records regulations: The Federal rules restrict any use of the information to criminally investigate or prosecute any alcohol or drug abuse patient.[facility] HospitalIn the event this information is protected by the Federal Confidentiality of Alcohol and Drug Abuse Patient Records regulations: The Federal rules restrict any use of the information to criminally investigate or prosecute any alcohol or drug abuse patient.[facility] HospitalIn the event this information is protected by the Federal Confidentiality of Alcohol and Drug Abuse Patient Records regulations: The Federal rules restrict any use of the information to criminally investigate or prosecute any alcohol or drug abuse patient.[facility] HospitalIn the event this information is protected by the Federal Confidentiality of Alcohol and Drug Abuse Patient Records regulations: The Federal rules restrict any use of the information to criminally investigate or prosecute any alcohol or drug abuse patient.[facility] HospitalIn the event this information is protected by the Federal Confidentiality of Alcohol and Drug Abuse Patient Records regulations: The Federal rules restrict any use of the information to criminally investigate or prosecute any alcohol or drug abuse patient.[facility] HospitalIn the event this information is protected by the Federal Confidentiality of Alcohol and Drug Abuse Patient Records regulations: The Federal rules restrict any use of the information to criminally investigate or prosecute any alcohol or drug abuse patient.[facility] HospitalIn the event this information is protected by the Federal Confidentiality of Alcohol and Drug Abuse Patient Records regulations: The Federal rules restrict any use of the information to criminally investigate or prosecute any alcohol or drug abuse patient.[facility] HospitalIn the event this information is protected by the Federal Confidentiality of Alcohol and Drug Abuse Patient Records regulations: The Federal rules restrict any use of the information to criminally investigate or prosecute any alcohol or drug abuse patient.[facility] HospitalIn the event this information is protected by the Federal Confidentiality of Alcohol and Drug Abuse Patient Records regulations: The Federal rules restrict any use of the information to criminally investigate or prosecute any alcohol or drug abuse patient.[facility] HospitalIn the event this information is protected by the Federal Confidentiality of Alcohol and Drug Abuse Patient Records regulations: The Federal rules restrict any use of the information to criminally investigate or prosecute any alcohol or drug abuse patient.[facility] HospitalIn the event this information is protected by the Federal Confidentiality of Alcohol and Drug Abuse Patient Records regulations: The Federal rules restrict any use of the information to criminally investigate or prosecute any alcohol or drug abuse patient.[facility] HospitalIn the event this information is protected by the Federal Confidentiality of Alcohol and Drug Abuse Patient Records regulations: The Federal rules restrict any use of the information to criminally investigate or prosecute any alcohol or drug abuse patient.[facility] HospitalIn the event this information is protected by the Federal Confidentiality of Alcohol and Drug Abuse Patient Records regulations: The Federal rules restrict any use of the information to criminally investigate or prosecute any alcohol or drug abuse patient.[facility] HospitalIn the event this information is protected by the Federal Confidentiality of Alcohol and Drug Abuse Patient Records regulations: The Federal rules restrict any use of the information to criminally investigate or prosecute any alcohol or drug abuse patient.[facility] HospitalIn the event this information is protected by the Federal Confidentiality of Alcohol and Drug Abuse Patient Records regulations: The Federal rules restrict any use of the information to criminally investigate or prosecute any alcohol or drug abuse patient.[facility] HospitalIn the event this information is protected by the Federal Confidentiality of Alcohol and Drug Abuse Patient Records regulations: The Federal rules restrict any use of the information to criminally investigate or prosecute any alcohol or drug abuse patient.[facility] HospitalIn the event this information is protected by the Federal Confidentiality of Alcohol and Drug Abuse Patient Records regulations: The Federal rules restrict any use of the information to criminally investigate or prosecute any alcohol or drug abuse patient.[facility] HospitalIn the event this information is protected by the Federal Confidentiality of Alcohol and Drug Abuse Patient Records regulations: The Federal rules restrict any use of the information to criminally investigate or prosecute any alcohol or drug abuse patient.[facility] HospitalIn the event this information is protected by the Federal Confidentiality of Alcohol and Drug Abuse Patient Records regulations: The Federal rules restrict any use of the information to criminally investigate or prosecute any alcohol or drug abuse patient.[facility] HospitalIn the event this information is protected by the Federal Confidentiality of Alcohol and Drug Abuse Patient Records regulations: The Federal rules restrict any use of the information to criminally investigate or prosecute any alcohol or drug abuse patient.[facility] HospitalIn the event this information is protected by the Federal Confidentiality of Alcohol and Drug Abuse Patient Records regulations: The Federal rules restrict any use of the information to criminally investigate or prosecute any alcohol or drug abuse patient.[facility] HospitalIn the event this information is protected by the Federal Confidentiality of Alcohol and Drug Abuse Patient Records regulations: The Federal rules restrict any use of the information to criminally investigate or prosecute any alcohol or drug abuse patient.[facility] HospitalIn the event this information is protected by the Federal Confidentiality of Alcohol and Drug Abuse Patient Records regulations: The Federal rules restrict any use of the information to criminally investigate or prosecute any alcohol or drug abuse patient.[facility] HospitalIn the event this information is protected by the Federal Confidentiality of Alcohol and Drug Abuse Patient Records regulations: The Federal rules restrict any use of the information to criminally investigate or prosecute any alcohol or drug abuse patient.[facility] HospitalIn the event this information is protected by the Federal Confidentiality of Alcohol and Drug Abuse Patient Records regulations: The Federal rules restrict any use of the information to criminally investigate or prosecute any alcohol or drug abuse patient.[facility] HospitalIn the event this information is protected by the Federal Confidentiality of Alcohol and Drug Abuse Patient Records regulations: The Federal rules restrict any use of the information to criminally investigate or prosecute any alcohol or drug abuse patient.[facility] HospitalIn the event this information is protected by the Federal Confidentiality of Alcohol and Drug Abuse Patient Records regulations: The Federal rules restrict any use of the information to criminally investigate or prosecute any alcohol or drug abuse patient.[facility] HospitalIn the event this information is protected by the Federal Confidentiality of Alcohol and Drug Abuse Patient Records regulations: The Federal rules restrict any use of the information to criminally investigate or prosecute any alcohol or drug abuse patient.[facility] HospitalIn the event this information is protected by the Federal Confidentiality of Alcohol and Drug Abuse Patient Records regulations: The Federal rules restrict any use of the information to criminally investigate or prosecute any alcohol or drug abuse patient.[facility] HospitalIn the event this information is protected by the Federal Confidentiality of Alcohol and Drug Abuse Patient Records regulations: The Federal rules restrict any use of the information to criminally investigate or prosecute any alcohol or drug abuse patient.[facility] HospitalIn the event this information is protected by the Federal Confidentiality of Alcohol and Drug Abuse Patient Records regulations: The Federal rules restrict any use of the information to criminally investigate or prosecute any alcohol or drug abuse patient.[facility] HospitalIn the event this information is protected by the Federal Confidentiality of Alcohol and Drug Abuse Patient Records regulations: The Federal rules restrict any use of the information to criminally investigate or prosecute any alcohol or drug abuse patient.[facility] HospitalIn the event this information is protected by the Federal Confidentiality of Alcohol and Drug Abuse Patient Records regulations: The Federal rules restrict any use of the information to criminally investigate or prosecute any alcohol or drug abuse patient.[facility] HospitalIn the event this information is protected by the Federal Confidentiality of Alcohol and Drug Abuse Patient Records regulations: The Federal rules restrict any use of the information to criminally investigate or prosecute any alcohol or drug abuse patient.[facility] HospitalIn the event this information is protected by the Federal Confidentiality of Alcohol and Drug Abuse Patient Records regulations: The Federal rules restrict any use of the information to criminally investigate or prosecute any alcohol or drug abuse patient.[facility] HospitalIn the event this information is protected by the Federal Confidentiality of Alcohol and Drug Abuse Patient Records regulations: The Federal rules restrict any use of the information to criminally investigate or prosecute any alcohol or drug abuse patient.[facility] HospitalIn the event this information is protected by the Federal Confidentiality of Alcohol and Drug Abuse Patient Records regulations: The Federal rules restrict any use of the information to criminally investigate or prosecute any alcohol or drug abuse patient.[facility] HospitalIn the event this information is protected by the Federal Confidentiality of Alcohol and Drug Abuse Patient Records regulations: The Federal rules restrict any use of the information to criminally investigate or prosecute any alcohol or drug abuse patient.[facility] HospitalIn the event this information is protected by the Federal Confidentiality of Alcohol and Drug Abuse Patient Records regulations: The Federal rules restrict any use of the information to criminally investigate or prosecute any alcohol or drug abuse patient.[facility] HospitalIn the event this information is protected by the Federal Confidentiality of Alcohol and Drug Abuse Patient Records regulations: The Federal rules restrict any use of the information to criminally investigate or prosecute any alcohol or drug abuse patient.[facility] HospitalIn the event this information is protected by the Federal Confidentiality of Alcohol and Drug Abuse Patient Records regulations: The Federal rules restrict any use of the information to criminally investigate or prosecute any alcohol or drug abuse patient.[facility] HospitalIn the event this information is protected by the Federal Confidentiality of Alcohol and Drug Abuse Patient Records regulations: The Federal rules restrict any use of the information to criminally investigate or prosecute any alcohol or drug abuse patient.[facility] HospitalIn the event this information is protected by the Federal Confidentiality of Alcohol and Drug Abuse Patient Records regulations: The Federal rules restrict any use of the information to criminally investigate or prosecute any alcohol or drug abuse patient.[facility] HospitalIn the event this information is protected by the Federal Confidentiality of Alcohol and Drug Abuse Patient Records regulations: The Federal rules restrict any use of the information to criminally investigate or prosecute any alcohol or drug abuse patient.[facility] HospitalIn the event this information is protected by the Federal Confidentiality of Alcohol and Drug Abuse Patient Records regulations: The Federal rules restrict any use of the information to criminally investigate or prosecute any alcohol or drug abuse patient.[facility] HospitalIn the event this information is protected by the Federal Confidentiality of Alcohol and Drug Abuse Patient Records regulations: The Federal rules restrict any use of the information to criminally investigate or prosecute any alcohol or drug abuse patient.[facility] HospitalIn the event this information is protected by the Federal Confidentiality of Alcohol and Drug Abuse Patient Records regulations: The Federal rules restrict any use of the information to criminally investigate or prosecute any alcohol or drug abuse patient.[facility] HospitalIn the event this information is protected by the Federal Confidentiality of Alcohol and Drug Abuse Patient Records regulations: The Federal rules restrict any use of the information to criminally investigate or prosecute any alcohol or drug abuse patient.[facility] HospitalIn the event this information is protected by the Federal Confidentiality of Alcohol and Drug Abuse Patient Records regulations: The Federal rules restrict any use of the information to criminally investigate or prosecute any alcohol or drug abuse patient.[facility] Care Teams (unrecognized sec tion and content) Librarian Special Collections Relationship Specialty Start Date End Date Kurt Saravia MD [address] [place] [address] PCP - General Family Practice 12/07/15 Librarian Special Collections Relationship Specialty Start Date End Date Kurt Saravia MD [facility] [place] [address] PCP - General Family Practice 12/07/15 Librarian Special Collections Relationship Specialty Start Date End Date Kurt Saravia MD [facility] [place] [address] PCP - General Family Practice 12/07/15 Librarian Special Collections Relationship Specialty Start Date End Date Kurt Saravia MD [address] [place] [address] PCP - General Family Practice 12/07/15 Librarian Special Collections Relationship Specialty Start Date End Date Kurt Saravia MD [facility] [place] [address] PCP - General Family Practice 12/07/15 Librarian Special Collections Relationship Specialty Start Date End Date Kurt Saravia MD [address] [place] [address] PCP - General Family Practice 12/07/15 Librarian Special Collections Relationship Specialty Start Date End Date Kurt Saravia MD [address] [place] [address] PCP - General Family Practice 12/07/15 Librarian Special Collections Relationship Specialty Start Date End Date Kurt Saravia MD [facility] [place] [address] PCP - General Family Medicine 12/07/15 Librarian Special Collections Relationship Specialty Start Date End Date Kurt Saravia MD [facility] [place] [address] PCP - General Family Medicine 12/07/15 Librarian Special Collections Relationship Specialty Start Date End Date Kurt Saravia MD [facility] [place] [address] PCP - General Family Medicine 12/07/15 Librarian Special Collections Relationship Specialty Start Date End Date Kurt Saravia MD [facility] [place] [address] PCP - General Family Medicine 12/07/15 Librarian Special Collections Relationship Specialty Start Date End Date Kurt Saravia MD [facility] [place] [address] PCP - General Family Medicine 12/07/15 Librarian Special Collections Relationship Specialty Start Date End Date Kurt Saravia MD [facility] [place] [address] PCP - General Family Medicine 12/07/15 Librarian Special Collections Relationship Specialty Start Date End Date Kurt Saravia MD [facility] [place] [address] PCP - General Family Medicine 12/07/15 Librarian Special Collections Relationship Specialty Start Date End Date Kurt Saravia MD [address] [place] [address] PCP - General Family Medicine 12/07/15 Librarian Special Collections Relationship Specialty Start Date End Date Kurt Saravia MD [address] [place] [address] PCP - General Family Medicine 12/07/15 Librarian Special Collections Relationship Specialty Start Date End Date Kurt Saravia MD [facility] [place] [address] PCP - General Family Medicine 12/07/15 Librarian Special Collections Relationship Specialty Start Date End Date Kurt Saravia MD [address] [place] [address], [place] [address] PCP - General Family Medicine 12/07/15 Librarian Special Collections Relationship Specialty Start Date End Date Kurt Saravia MD [facility] [place] [address] PCP - General Family Medicine 12/07/15 Librarian Special Collections Relationship Specialty Start Date End Date Kurt Saravia MD [facility] [place] [address] PCP - General Family Medicine 12/07/15 Librarian Special Collections Relationship Specialty Start Date End Date Kurt Saravia MD [facility] [place] [address] PCP - General Family Medicine 12/07/15 Librarian Special Collections Relationship Specialty Start Date End Date Kurt Saravia MD [facility] [place] [address] PCP - General Family Medicine 12/07/15 Librarian Special Collections Relationship Specialty Start Date End Date Kurt Saravia MD [facility] [place] [address] PCP - General Family Medicine 12/07/15 Librarian Special Collections Relationship Specialty Start Date End Date Kurt Saravia MD [address] [place] [address] PCP - General Family Medicine 12/07/15 Librarian Special Collections Relationship Specialty Start Date End Date Kurt Saravia MD [address] [place] [address] PCP - General Family Medicine 12/07/15 Angelina Goodman, INSURANCE AGENTS SUPERVISOR.CLIENT SERVICES REPRESENTATIVE [address] [place] [address] Referring Internal Medicine 03/04/23 Kurt Saravia MD [address] [place] [address] Home Care Provider Family Medicine 03/04/23 Kalpesh Oakley RN [address] [place] [address] [facility] Acute Care 03/04/23 Librarian Special Collections Relationship Specialty Start Date End Date Kurt Saravia MD [address] [place] [address] PCP - General Family Medicine 12/07/15 Angelina Goodman, INSURANCE AGENTS SUPERVISOR.CLIENT SERVICES REPRESENTATIVE [address] [place] [address] Referring Internal Medicine 03/04/23 Kurt Saravia MD [address] [place] [address] Home Care Provider Family Medicine 03/04/23 Kalpesh Oakley RN [address] [place] [address] [facility] Acute Care 03/04/23 Librarian Special Collections Relationship Specialty Start Date End Date Kurt Saravia MD [address] [place] [address] PCP - General Family Medicine 12/07/15 Angelina Goodman, INSURANCE AGENTS SUPERVISOR.CLIENT SERVICES REPRESENTATIVE [address] [place] [address] Referring Internal Medicine 03/04/23 Kurt Saravia MD [address] [place] [address] Home Care Provider Family Medicine 03/04/23 Kalpesh [place], LILLI [address] [place] [address] [facility] Acute Care 03/04/23 Librarian Special Collections Relationship Specialty Start Date End Date Kurt Saravia MD [address] [place] [address] PCP - General Family Medicine 12/07/15 Angelina Goodman, INSURANCE AGENTS SUPERVISOR.CLIENT SERVICES REPRESENTATIVE [address] [place] [address] Referring Internal Medicine 03/04/23 Kurt Saravia MD [address] [place] [address] Home Care Provider Family Medicine 03/04/23 Kalpesh [place], LILLI [address] [place] [address] [facility] Acute Care 03/04/23 Librarian Special Collections Relationship Specialty Start Date End Date Kurt Saravia MD [address] [place] [address] PCP - General Family Medicine 12/07/15 Angelina Goodman, INSURANCE AGENTS SUPERVISOR.CLIENT SERVICES REPRESENTATIVE [address] [place] [address] Referring Internal Medicine 03/04/23 Kurt Saravia MD [address] [place] [address] Home Care Provider Family Medicine 03/04/23 Kalpesh [place], LILLI [address] [place] [address] [facility] Acute Care 03/04/23 Librarian Special Collections Relationship Specialty Start Date End Date Kurt Saravai MD [address] [place] [address] PCP - General Family Medicine 12/07/15 Angelina Goodman, INSURANCE AGENTS SUPERVISOR.CLIENT SERVICES REPRESENTATIVE [address] [place] [address] Referring Internal Medicine 03/04/23 Kurt Saravia MD [address] [place] [address] Home Care Provider Family Medicine 03/04/23 Kalpesh Oak[place] RN [address] [place] [address] [facility] Acute Care 03/04/23 Librarian Special Collections Relationship Specialty Start Date End Date Kurt Saravia MD [address] [place] [address] PCP - General Family Medicine 12/07/15 Angelina Goodman, INSURANCE AGENTS SUPERVISOR.CLIENT SERVICES REPRESENTATIVE [address] [place] [address] Referring Internal Medicine 03/04/23 Kurt Saravia MD [address] [place] [address] Home Care Provider Family Medicine 03/04/23 Kalpesh [place] RN [address] [place] [address] [facility] Acute Care 03/04/23 Librarian Special Collections Relationship Specialty Start Date End Date Kurt Saravia MD [address] [place] [address] PCP - General Family Medicine 12/07/15 Angelina Goodman, INSURANCE AGENTS SUPERVISOR.CLIENT SERVICES REPRESENTATIVE [address] [place] [address] Referring Internal Medicine 03/04/23 Kurt Saravia MD [address] [place] [address] Home Care Provider Family Medicine 03/04/23 Kalpesh [place], LILLI [address] [place] [address] [facility] 03/04/23 Librarian Special Collections Relationship Specialty Start Date End Date Kurt Saravia MD [address] [place] [address] PCP - General Family Medicine 12/07/15 Angelina Goodman, INSURANCE AGENTS SUPERVISOR.CLIENT SERVICES REPRESENTATIVE [address] [place] [address] Referring Internal Medicine 03/04/23 Kurt Saravia MD [address] [place] [address] Home Care Provider Family Medicine 03/04/23 Kalpesh Oakley, LILLI [address] [place] [address] [facility] 03/04/23 Librarian Special Collections Relationship Specialty Start Date End Date Kurt Saravia MD [address] [place] [address] PCP - General Family Medicine 12/07/15 Angelina Goodman, INSURANCE AGENTS SUPERVISOR.CLIENT SERVICES REPRESENTATIVE [address] [place] [address] Referring Internal Medicine 03/04/23 Kurt Saravia MD [address] [place] [address] Home Care Provider Family Medicine 03/04/23 Kalpesh [place], LILLI [address] [place] [address] [facility] 03/04/23 Librarian Special Collections Relationship Specialty Start Date End Date Kurt Saravia MD [address] [place] [address] PCP - General Family Medicine 12/07/15 Angelina Goodman, INSURANCE AGENTS SUPERVISOR.CLIENT SERVICES REPRESENTATIVE [address] [place] [address] Referring Internal Medicine 03/04/23 Kurt Saravia MD [address] [place] [address] Home Care Provider Family Medicine 03/04/23 Kalpesh Oakley RN [address] [place] [address] [facility] 03/04/23 Librarian Special Collections Relationship Specialty Start Date End Date Kurt Saravia MD [address] [place] [address] PCP - General Family Medicine 12/07/15 Angelina Goodman, INSURANCE AGENTS SUPERVISOR.CLIENT SERVICES REPRESENTATIVE [address] [place] [address] Referring Internal Medicine 03/04/23 Kurt Saravia MD [address] [place] [address] Home Care Provider Family Medicine 03/04/23 Kalpesh Oakley RN [address] [place] [address] [facility] 03/04/23 Librarian Special Collections Relationship Specialty Start Date End Date Kurt Saravia MD [address] [place] [address] PCP - General Family Medicine 12/07/15 Angelina Goodman, INSURANCE AGENTS SUPERVISOR.CLIENT SERVICES REPRESENTATIVE [address] [place] [address] Referring Internal Medicine 03/04/23 Kurt Saravia MD [address] [place] [address] Home Care Provider Family Medicine 03/04/23 Kalpesh [place], LILLI [address] [place] [address] [facility] 03/04/23 Librarian Special Collections Relationship Specialty Start Date End Date Kurt Saravia MD [address] [place] [address] PCP - General Family Medicine 12/07/15 Angelina Goodman, INSURANCE AGENTS SUPERVISOR.CLIENT SERVICES REPRESENTATIVE [address] [place] [address] Referring Internal Medicine 03/04/23 Kurt Saravia MD [address] [place] [address] Home Care Provider Family Medicine 03/04/23 Kalpesh [place], LILLI [address] [place] [address] [facility] 03/04/23 Librarian Special Collections Relationship Specialty Start Date End Date Kurt Saravia MD [address] [place] [address] PCP - General Family Medicine 12/07/15 Angelina Goodman, INSURANCE AGENTS SUPERVISOR.CLIENT SERVICES REPRESENTATIVE [address] [place] [address] Referring Internal Medicine 03/04/23 Kurt Saravia MD [address] [place] [address] Home Care Provider Family Medicine 03/04/23 Kalpesh Oak[place] RN [address] [place] [address] [facility] Acute [facility] 03/04/23 Librarian Special Collections Relationship Specialty Start Date End Date Kurt Saravia MD [address] [place] [address] PCP - General Family Medicine 12/07/15 Angelina Goodman, INSURANCE AGENTS SUPERVISOR.CLIENT SERVICES REPRESENTATIVE [address] [place] [address] Referring Internal Medicine 03/04/23 Kurt Saravia MD [facility] [place] [address] Home Care Provider Family Medicine 03/04/23 Kalpesh Oakley RN [address] [place] [address] [facility] Acute Care 03/04/23 Librarian Special Collections Relationship Specialty Start Date End Date Kurt Saravia MD [facility] [place] [address] PCP - General Family Medicine 12/07/15 Angelina Goodman, INSURANCE AGENTS SUPERVISOR.CLIENT SERVICES REPRESENTATIVE [address] [place] [address] Referring Internal Medicine 03/04/23 Kurt Saravia MD [address] [place] [address] Home Care Provider Family Medicine 03/04/23 Kalpesh Oakley RN [address] [place] [address] [facility] Acute Care 03/04/23 Librarian Special Collections Relationship Specialty Start Date End Date Kurt Saravia MD [address] [place] [address] PCP - General Family Medicine 12/07/15 Angelina Goodman, INSURANCE AGENTS SUPERVISOR.CLIENT SERVICES REPRESENTATIVE [address] [place] [address] Referring Internal Medicine 03/04/23 Kurt Saravia MD [address] [place] [address] Home Care Provider Family Medicine 03/04/23 Kalepsh Oakley RN [address] [place] [address] [facility] Acute [facility] 03/04/23 Librarian Special Collections Relationship Specialty Start Date End Date Kurt Saravia MD [address] [place] [address] PCP - General Family Medicine 12/07/15 Angelina Goodman, INSURANCE AGENTS SUPERVISOR.CLIENT SERVICES REPRESENTATIVE [address] [place] [address] Referring Internal Medicine 03/04/23 Kurt Saravia MD [address] [place] [address] Home Care Provider Family Medicine 03/04/23 Kalpesh Oak[address] RN [address] [place] [address] [facility] Acute Care 03/04/23 Librarian Special Collections Relationship Specialty Start Date End Date Kurt Saravia MD [address] [place] [address] PCP - General Family Medicine 12/07/15 Angelina Goodman, INSURANCE AGENTS SUPERVISOR.CLIENT SERVICES REPRESENTATIVE [address] [place] [address] Referring Internal Medicine 03/04/23 Kurt Saravia MD [address] [place] [address] Home Care Provider Family Medicine 03/04/23 Kalpesh [place] RN [address] [place] [address] [facility] Acute Care 03/04/23 Librarian Special Collections Relationship Specialty Start Date End Date Kurt Saravia MD [address] [place] [address] PCP - General Family Medicine 12/07/15 Angelina Goodman, INSURANCE AGENTS SUPERVISOR.CLIENT SERVICES REPRESENTATIVE [address] [place] [address] Referring Internal Medicine 03/04/23 Kurt Saravia MD [address] [place] [address] Home Care Provider Family Medicine 03/04/23 Kalpesh [place], LILLI [address] [place] [address] [facility] Acute [facility] 03/04/23 Librarian Special Collections Relationship Specialty Start Date End Date Kurt Saravia MD [address] [place] [address] PCP - General Family Medicine 12/07/15 Angelina Goodman, INSURANCE AGENTS SUPERVISOR.CLIENT SERVICES REPRESENTATIVE [address] [place] [address] Referring Internal Medicine 03/04/23 Kurt Saravia MD [address] [place] [address] Home Care Provider Family Medicine 03/04/23 Kalpesh [place] RN [address] [place], [place] [address] [facility] Acute [facility] 03/04/23 Librarian Special Collections Relationship Specialty Start Date End Date Kurt Saravia MD [address] [place] [address] PCP - General Family Medicine 12/07/15 Angelina Goodman, INSURANCE AGENTS SUPERVISOR.CLIENT SERVICES REPRESENTATIVE [address] [place] [address] Referring Internal Medicine 03/04/23 Kurt Saravia MD [address] [place] [address] Home Care Provider Family Medicine 03/04/23 Kalpesh [place] RN [address] [place] [address] [facility] Acute [facility] 03/04/23 04/25/23 Librarian Special Collections Relationship Specialty Start Date End Date Kurt Saravia MD [address] [place] [address] PCP - General Family Medicine 12/07/15 Angelina Goodman, INSURANCE AGENTS SUPERVISOR.CLIENT SERVICES REPRESENTATIVE [address] [place] [address] Referring Internal Medicine 03/04/23 Kurt Saravia MD [address] [place] [address] Home Care Provider Family Medicine 03/04/23 Leno Lopez, ditto machine operatorLaser Set Up Operator 05/27/23 Librarian Special Collections Relationship Specialty Start Date End Date Kurt Saravia MD [address] [place] [address] PCP - General Family Medicine 12/07/15 Angelina Goodman, INSURANCE AGENTS SUPERVISOR.CLIENT SERVICES REPRESENTATIVE [address] [place] [address] Referring Internal Medicine 03/04/23 Kurt Saravia MD [address] [place] [address] Home Care Provider Family Medicine 03/04/23 Leno Lopez, ditto machine operatorLaser Set Up Operator 05/27/23 Librarian Special Collections Relationship Specialty Start Date End Date Kurt Saravia MD [address] [place] [address] PCP - General Family Medicine 12/07/15 Angelina Goodman, INSURANCE AGENTS SUPERVISOR.CLIENT SERVICES REPRESENTATIVE [address] [place] [address] Referring Internal Medicine 03/04/23 Kurt Saravia MD [address] [place] [address] Home Care Provider Family Medicine 03/04/23 Leno Lopez, ditto machine operatorLaser Set Up Operator 05/27/23 Librarian Special Collections Relationship Specialty Start Date End Date Kurt Saravia MD [address] [place] [address] PCP - General Family Medicine 12/07/15 Angelina Goodman, INSURANCE AGENTS SUPERVISOR.CLIENT SERVICES REPRESENTATIVE [address] [place] [address] Referring Internal Medicine 03/04/23 Kurt Saravia MD [address] [place] [address] Home Care Provider Family Medicine 03/04/23 Leno Lopez, ditto machine operatorLaser Set Up Operator 05/27/23 Librarian Special Collections Relationship Specialty Start Date End Date Kurt Saravia MD [address] [place] [address] PCP - General Family Medicine 12/07/15 Angelina Goodman, INSURANCE AGENTS SUPERVISOR.CLIENT SERVICES REPRESENTATIVE [address] [place] [address] Referring Internal Medicine 03/04/23 Kurt Saravia MD [address] [place] [address] Home Care Provider Family Medicine 03/04/23 Leno Lopez, ditto machine operatorLaser Set Up Operator 05/27/23 Librarian Special Collections Relationship Specialty Start Date End Date Kurt Saravia MD [address] [place] [address] PCP - General Family Medicine 12/07/15 Angelina Goodman, INSURANCE AGENTS SUPERVISOR.CLIENT SERVICES REPRESENTATIVE [address] [place] [address] Referring Internal Medicine 03/04/23 Kurt Saravia MD [address] [place] [address] Home Care Provider Family Medicine 03/04/23 Leno Lopez, ditto machine operatorLaser Set Up Operator 05/27/23 Librarian Special Collections Relationship Specialty Start Date End Date Kurt Saravia MD [address] [place] [address] PCP - General Family Medicine 12/07/15 Angelina Goodman, INSURANCE AGENTS SUPERVISOR.CLIENT SERVICES REPRESENTATIVE [address] [place] [address] Referring Internal Medicine 03/04/23 Krut Saravia MD [address] [place] [address] Home Care Provider Family Medicine 03/04/23 Leno Lopez, ditto machine operatorLaser Set Up Operator 05/27/23 Librarian Special Collections Relationship Specialty Start Date End Date Kurt Saravia MD [address] [place] [address] PCP - General Family Medicine 12/07/15 Librarian Special Collections Relationship Specialty Start Date End Date Kurt Saravia MD [address] [place] [address] PCP - General Family Medicine 12/07/15 Angelina Goodman, INSURANCE AGENTS SUPERVISOR.CLIENT SERVICES REPRESENTATIVE [address] [place] [address] Referring Internal Medicine 03/04/23 Kurt Saravia MD [address] [place] [address] Home Care Provider Family Medicine 03/04/23 Leno Lopez, ditto machine operatorLaser Set Up Operator 05/27/23 Librarian Special Collections Relationship Specialty Start Date End Date Kurt Saravia MD [address] [place] [address] PCP - General Family Medicine 12/07/15 Angelina Goodman, INSURANCE AGENTS SUPERVISOR.CLIENT SERVICES REPRESENTATIVE [address] [place], [place] [address] Referring Internal Medicine 03/04/23 Kurt Saravia MD [address] [place] [address] Home Care Provider Family Medicine 03/04/23 Leno Lopez, ditto machine operatorLaser Set Up Operator 05/27/23 Librarian Special Collections Relationship Specialty Start Date End Date Kurt Saravia MD [address] [place] [address] PCP - General Family Medicine 12/07/15 Angelina Goodman, INSURANCE AGENTS SUPERVISOR.CLIENT SERVICES REPRESENTATIVE [address] [place] [address] Referring Internal Medicine 03/04/23 Kurt Saravia MD [address] [place] [address] Home Care Provider Family Medicine 03/04/23 Leno Lopez, ditto machine operatorLaser Set Up Operator 05/27/23 Librarian Special Collections Relationship Specialty Start Date End Date Kurt Saravia MD [address] [place] [address] PCP - General Family Medicine 12/07/15 Angelina Goodman, INSURANCE AGENTS SUPERVISOR.CLIENT SERVICES REPRESENTATIVE [address] [place] [address] Referring Internal Medicine 03/04/23 Kurt Saravia MD [address] [place] [address] Home Care Provider Family Medicine 03/04/23 Leno Lopez, ditto machine operatorLaser Set Up Operator 05/27/23 Librarian Special Collections Relationship Specialty Start Date End Date Kurt Saravia MD [address] [place] [address] PCP - General Family Medicine 12/07/15 Angelina Goodman, GIRMA.CLIENT SERVICES REPRESENTATIVE [address] [place] [address] Referring Internal Medicine 03/04/23 Kurt Saravia MD [address] [place] [address] Home Care Provider Family Medicine 03/04/23 Leno Lopez, ditto machine operatorLaser Set Up Operator 05/27/23 Librarian Special Collections Relationship Specialty Start Date End Date Kurt Saravia MD [address] [place] [address] PCP - General Family Medicine 12/07/15 Angelina Goodman, INSURANCE AGENTS SUPERVISOR.CLIENT SERVICES REPRESENTATIVE [address] [place] [address] Referring Internal Medicine 03/04/23 Kurt Saravia MD [address] [place] [address] Home Care Provider Family Medicine 03/04/23 Kalpesh [place], LILLI [address] [place], [place] [address] [facility] Acute [facility] 03/04/23 04/25/23 Leno Lopez, ditto machine operatorLaser Set Up Operator 05/27/23 Librarian Special Collections Relationship Specialty Start Date End Date Kurt Saravia MD [address] [place] [address] PCP - General Family Medicine 12/07/15 Angelina Goodman, INSURANCE AGENTS SUPERVISOR.CLIENT SERVICES REPRESENTATIVE [address] [place] [address] Referring Internal Medicine 03/04/23 Kurt Saravia MD [address] [place] [address] Home Care Provider Family Medicine 03/04/23 Leno Lopez, ditto machine operatorLaser Set Up Operator 05/27/23 Librarian Special Collections Relationship Specialty Start Date End Date Kurt Saravia MD [address] [place] [address] PCP - General Family Medicine 12/07/15 Angelina Goodman, INSURANCE AGENTS SUPERVISOR.CLIENT SERVICES REPRESENTATIVE [address] [place] [address] Referring Internal Medicine 03/04/23 Kurt Saravia MD [address] [place] [address] Home Care Provider Family Medicine 03/04/23 Leno Lopez, ditto machine operatorLaser Set Up Operator 05/27/23 Librarian Special Collections Relationship Specialty Start Date End Date Kurt Saravia MD [address] [place] [address] PCP - General Family Medicine 12/07/15 Angelina Goodman, INSURANCE AGENTS SUPERVISOR.CLIENT SERVICES REPRESENTATIVE [address] [place] [address] Referring Internal Medicine 03/04/23 Kurt Saravia MD [address] [place] [address] Home Care Provider Family Medicine 03/04/23 Leno Lopez, ditto machine operatorLaser Set Up Operator 05/27/23 Librarian Special Collections Relationship Specialty Start Date End Date Kurt Saravia MD [address] [place] [address] PCP - General Family Medicine 12/07/15 Angelina Goodman, INSURANCE AGENTS SUPERVISOR.CLIENT SERVICES REPRESENTATIVE [address] [place] [address] Referring Internal Medicine 03/04/23 Kurt Saravia MD [address] [place] [address] Home Care Provider Family Medicine 03/04/23 Leno Lopez, ditto machine operatorLaser Set Up Operator 05/27/23 Librarian Special Collections Relationship Specialty Start Date End Date Kurt Saravia MD [address] [place] [address] PCP - General Family Medicine 12/07/15 Angelina Goodman, INSURANCE AGENTS SUPERVISOR.CLIENT SERVICES REPRESENTATIVE [address] [place] [address] Referring Internal Medicine 03/04/23 Kurt Saravia MD [address] [place] [address] Home Care Provider Family Medicine 03/04/23 Leno Lopez, ditto machine operatorLaser Set Up Operator 05/27/23 Librarian Special Collections Relationship Specialty Start Date End Date Kurt Saravia MD [address] [place] [address] PCP - General Family Medicine 12/07/15 Librarian Special Collections Relationship Specialty Start Date End Date Kurt Saravia MD [address] [place] [address] PCP - General Family Medicine 12/07/15 Angelina Goodman, INSURANCE AGENTS SUPERVISOR.CLIENT SERVICES REPRESENTATIVE [address] [place] [address] Referring Internal Medicine 03/04/23 Kurt Saravia MD [address] [place] [address] Home Care Provider Family Medicine 03/04/23 Leno Lopez, ditto machine operatorLaser Set Up Operator 05/27/23 Librarian Special Collections Relationship Specialty Start Date End Date Kurt Saravia MD [address] [place] [address] PCP - General Family Medicine 12/07/15 Angelina Goodman, INSURANCE AGENTS SUPERVISOR.CLIENT SERVICES REPRESENTATIVE [address] [place] [address] Referring Internal Medicine 03/04/23 Kurt Saravia MD [address] [place] [address] Home Care Provider Family Medicine 03/04/23 Leno Lopez, ditto machine operatorLaser Set Up Operator 05/27/23 Librarian Special Collections Relationship Specialty Start Date End Date Kurt Saravia MD [address] [place] [address] PCP - General Family Medicine 12/07/15 Angelina Goodman, INSURANCE AGENTS SUPERVISOR.CLIENT SERVICES REPRESENTATIVE [address] [place] [address] Referring Internal Medicine 03/04/23 Kurt Saravia MD [address] [place] [address] Home Care Provider Family Medicine 03/04/23 Leno Lopez, ditto machine operatorLaser Set Up Operator 05/27/23 FOR RECORDS PERTAINING TO PATIENTS WHO ARE OR HAVE BEEN ENROLLED IN A CHEMICAL DEPENDENCY/SUBSTANCEABUSE PROGRAM, SOME INFORMATION MAY BE OMITTED. This clinical summary was aggregated from multiple sources. Caution should be exercised in using it in the provision of clinical care. This summary normalizes information from multiple sources, and as a consequence, information in this document may materially change the coding, format and clinical context of patient data. In addition, data may be omitted in some cases. CLINICAL DECISIONS SHOULD BE BASED ON THE PRIMARY CLINICAL RECORDS. [facility]. provides no warranty or guarantee of the accuracy or completeness of information in this document.
[2024-07-26] MEDS: Amox/Clavulanate 875 MG Tablet PO (15:26)
[2024-07-26] MEDS: Lidocaine 1% (20 ml mdv) 20 ML Vial INFILT (15:26)
[2024-07-26] MEDS: Acetaminophen 500 MG Tablet 1000 MG PO (15:26)
[2024-07-26] MEDS: BACITRACIN 15 GM Tube 1 APPLIC TOPICAL (15:26)
[2024-07-26 16:16] VITALS: BP 158/90; PULSE 68; RESP 16; TEMP 36.6; O2SAT 100
== END 2024-07-26 16:18 | disposition home or self-care (01) ==
PROVIDERS: Emergency Provider Emergency Medicine; PCP Family Medicine; Visit Provider Emergency Medicine
DX: S61.011A Laceration without foreign body of right thumb without damage to nail, initial encounter (principal); S51.811A Laceration without foreign body of right forearm, initial encounter; S61.431A Puncture wound without foreign body of right hand, initial encounter; S61.451A Open bite of right hand, initial encounter; W54.0XXA Bitten by dog, initial encounter; Z23 Encounter for immunization; I10 Essential (primary) hypertension; E78.5 Hyperlipidemia, unspecified; E03.9 Hypothyroidism, unspecified; F17.200 Nicotine dependence, unspecified, uncomplicated; Z79.82 Long term (current) use of aspirin; Z79.890 Hormone replacement therapy; Z79.899 Other long term (current) drug therapy
CPT/HCPCS: 12001; 73130; 90471; 90715; 99284

== ENCOUNTER 2024-09-09 09:10 | Emergency (ER) | payer MEDICARE, MEDICAID, SELFPAY ==
[2024-09-09 09:10] VITALS: BP 130/80; PULSE 78; RESP 19; TEMP 36; O2SAT 98; BMI 19.3
--- NOTE | 2024-09-09 09:33 | EX.ED.DYSGE1 ---
HPI History of Present Illness Chief Complaint: Nausea/Vomiting Informant: patient and friend Narrative Narrative: Brought in by family friend for evaluation. History of dementia lives alone with caregivers 3 hours a day. Her daughter is in [employer] for her friend. Reported over the last week she has had decreased p.o. intake, reported she would vomit with any meals. Today she drank tea only and threw up. Denies abdominal pain. She has had small bowel movements per patient. She has had at least a hysterectomy in the past that she can recall. She has had colonoscopy unclear if she is ever having upper endoscopy. Reported from family friend that patient lost 7 pounds according to caregivers in the last week. Patient denies fevers. Denies urinary symptoms stating however she does need to urinate during my examination. Patient not having any complaints at this time. [facility] Medical History Depression Hypothyroidism Hyperlipidemia Hypertension Home Medications ?Medication ?Instructions ?Recorded ?Last Taken ?Type ascorbic acid (vitamin C) 500 mg 500 mg PO DAILY supplement 01/12/21 01/11/21 History tablet aspirin 81 mg tablet,delayed 81 mg PO DAILY@0800 health 01/12/21 01/11/21 History release maintenance atorvastatin 40 mg tablet 40 mg PO QHS cholesterol 01/12/21 01/11/21 History fluoxetine 20 mg capsule 20 mg PO DAILY mental health 01/12/21 01/11/21 History levothyroxine 50 mcg tablet 50 mcg PO DAILY thyroid 01/12/21 01/11/21 History melatonin 5 mg capsule 5 mg PO QHS sleep 01/12/21 01/11/21 History mirabegron 50 mg tablet,extended 50 mg PO DAILY Check with primary 01/12/21 01/11/21 History release 24 hr doctor potassium chloride 20 mEq 40 meq PO DAILY supplement 01/12/21 01/11/21 History tablet,extended release vitamin E acetate 134 mg (200 200 unit PO DAILY supplement 01/12/21 01/11/21 History unit) capsule amoxicillin 875 mg-potassium 875 mg PO Q12H #13 TABLETS 07/26/24 Unknown Rx clavulanate 125 mg tablet ondansetron 4 mg disintegrating 4 mg PO Q8H PRN PRN Nausea #10 tabs 09/09/24 Unknown Rx tablet Allergy/AdvReac Type Severity Reaction Status Date / Time cephalexin (From Keflex) Allergy NEEDS Verified 07/26/24 14:19 FOLLOW-UP citalopram Allergy Angioedema Verified 07/26/24 14:19 sulfamethoxazole (From Allergy NEEDS Verified 07/26/24 14:19 Bactrim) FOLLOW-UP trimethoprim (From Bactrim) Allergy NEEDS Verified 07/26/24 14:19 FOLLOW-UP duloxetine (From Cymbalta) AdvReac Other Verified 07/26/24 14:19 Social History Smoking Status: Light Smoker (<10/day) ROS ROS ED Constitutional Constitutional ED: Denies chills, fever(s) or sweats Eyes Eyes: Denies change in vision ENT ENT ED: Denies dysphagia or sore throat Cardiovascular Cardiovascular: Denies chest pain, leg edema, palpitations or racing heartbeat Respiratory/Chest Respiratory/Chest: Denies cough, dyspnea or dyspnea on exertion Gastrointestinal Gastrointestinal: Reports nausea and vomiting; Denies abdominal pain or diarrhea Genitourinary Genitourinary ED: Denies dysuria, hematuria or urinary frequency Musculoskeletal Musculoskeletal: Denies back pain, extremity pain or neck pain Integumentary Denies rash or wounds Neurologic Neurologic: Denies headache(s), paresthesias or weakness EXAM Physical Exam Const Vital Signs: 09/09/24 09:10 09/09/24 11:10 Temperature 96.8 F L Temperature Source Temporal Pulse Rate 78 80 Respiratory Rate 19 H 16 Blood Pressure 130/80 H 128/74 H Blood Pressure Mean 96 92 Pulse Ox 98 Oxygen Delivery Method Room Air Positive well nourished and well developed Constitutional Narrative: Nontoxic alert and oriented to person and place. Cannot tell me the year. General Appearance ED: well developed and NAD HEENT Reports moist mucous membranes normocephalic and atraumatic Eyes EOMs intact bilaterally and conjunctivae normal General Eye ED: Yes normal appearance of both eyes Neck no lymphadenopathy and supple General: Negative for tenderness Chest Wall Chest: Negative for tenderness Resp normal respiratory effort and normal air movement Effort and Inspection: symmetric chest movement; Negative for respiratory distress Cardio regular rate, regular rhythm and no murmurs Peripheral Pulses: pulses 2+ throughout GI normal to inspection, nondistended, normoactive bowel sounds and non-tender GI Narrative: Nondistended abdomen, positive bowel sounds. Palpation: Negative for guarding or rebound tenderness present Back/Spine Negative for no CVA tenderness or no thoracic nor lumbar tenderness Extremity normal to inspection General Extremety ED: Negative for edema or tenderness General Extremity: Negative for edema Neuro no sensory deficits noted Neuro Narrative: Alert to person and place. No focal deficits. Sensorium / Orientation: awake and alert Skin no rashes or lesions noted and no wounds MDM MDM MDM Narrative Medical decision making narrative: Interventions / MDM: Differential diagnosis: Nausea and vomiting, dehydration, history of dementia Diagnosis considered but do not suspect: No clinical bowel obstruction My EKG interpretation: N/A Imaging independently reviewed and interpreted by myself: Abdominal series 3 views: Nonspecific findings. External documents reviewed: N/A Test considered but not ordered:N/A ED course: History dementia, nontoxic. Reported nausea and vomiting past week unable to keep things down. Vitals are stable. Abdomen benign on exam. Will check basic labs urine and abdominal series x-ray for evaluation. IV fluids and Zofran ordered for symptom control. 1400: Patient left labs are stable urinary for infection. Clinically feeling better after fluids. She is tolerating oral fluids. However received fax from the office is concern for dementia and her driving. There was concerns for her doctor relaying to family about emergency guardianship so patient would not be at home. Granddaughter, Danna who was in [employer]. This is her friend in the department helping her. They have been relaying information. I had social work discussed with patient and daughter Danna, there is no concerns for safety for her being at home at this point she has aides that come to her house daily. They requested hospice referral outpatient evaluation with her history this was placed under me. They will follow-up as an outpatient. Discussed with patient safety of not driving. 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 Re-evaluation: stable Disposition discussed with patient/family/significant other: Patient and family Case discussed with consulting clinician: Social work This note was generated with [employer] dictation software. It may contain incorrect words, spelling, and punctuation that were not noted in checking the note before signing. Lab Data Attestation: I reviewed the patient's lab results. Labs: Laboratory Results - last 24 hr 09/09/24 09/09/24 09:50 11:42 WBC 7.5 RBC 4.14 L Hgb 12.2 Hct 36.5 L MCV 88.2 MCH 29.5 MCHC 33.4 RDW Std Deviation 44.1 H RDW Coeff of Loob 13.6 Plt Count 302 MPV 8.9 Immature Gran % (Auto) 0.400 Neut % (Auto) 73.2 H Lymph % (Auto) 18.5 L [place] % (Auto) 6.8 Eos % (Auto) 0.4 Baso % (Auto) 0.7 Absolute Neuts (auto) 5.5 Absolute Lymphs (auto) 1.39 Nucleated RBC % 0 Sodium 137 Potassium 3.8 Chloride 103 Carbon Dioxide 27.0 Anion Gap 8 BUN 10 Creatinine 1.22 H Estim Creat Clear Calc 25.28 Est GFR (MDRD) Af Amer 55 L Est GFR (MDRD) Non-Af 45 L BUN/Creatinine Ratio 8.2 L Glucose 132 H Calcium 9.5 Urine Color Yellow Urine Clarity Clear Urine pH 6.0 Ur Specific [place] 1.010 Urine Protein Negative Urine Glucose (UA) Normal Urine Ketones Negative Urine Occult Blood Negative Urine Nitrite Negative Urine Bilirubin Negative Urine Urobilinogen Normal Ur Leukocyte Esterase 100 H Urine RBC 0 SEEN Urine WBC 0 SEEN Ur Squamous Epith Cells 0-5 SEEN Urine Bacteria 0 SEEN Urine Mucus 0 SEEN Radiography Diagnostic Testing: Clinical Impression(s) from Imaging Studies Acute Abdomen Series 09/09/24 10:10 IMPRESSION: Mild air fluid levels in the colon, which can be seen with gastroenteritis/diarrheal illness. Electronically Signed: Arti Palafox MD at 10:37 EST Reading Location ID and State: [facility] / [place] Tel , Service support , Discharge Plan Triage Chief Complaint: Nausea/Vomiting Other Complaint: Confusion ED Provider: Jose Juan Kendrick Dx/Rx/DC Orders Clinical Impression: Nausea & vomiting, Dehydration, Dementia Instructions: Dementia Caregiver Tips, Dementia Caregivers Plan Future, ED Vomiting (Adult) Prescriptions: New ondansetron 4 mg tablet,disintegrating 4 mg PO Q8H PRN PRN (Reason: Nausea) Qty: 10 0RF No Action atorvastatin 40 MG tablet 40 mg PO QHS aspirin 81 MG tablet 81 mg PO DAILY@0800 ascorbic acid (vitamin C) 500 MG tablet 500 mg PO DAILY levothyroxine 50 MCG tablet 50 mcg PO DAILY fluoxetine 20 MG capsule 20 mg PO DAILY melatonin 5 MG capsule 5 mg PO QHS mirabegron 50 MG tablet extended release 24 hr 50 mg PO DAILY vitamin E acetate 200 UNIT capsule 200 unit PO DAILY potassium chloride 20 MEQ tablet extended release 40 meq PO DAILY amoxicillin-pot clavulanate 875-125 mg tablet 875 mg PO Q12H Qty: 13 0RF Primary Care Provider: Kurt Harris Referrals: Kurt Harris MD [Primary Care Provider] - 3-5 Days Activity Restrictions/Additional Instructions: Your labs are stable urine negative for infection. You are given fluids. You are drinking fluids in the ED. You Zofran as needed. Social work evaluated, hospice referral made for outpatient evaluation. Return to ED if symptoms worsen or there is any safety concerns. Print Language: Bruneian Disposition Disposition: Home, Self Care Discharge Date/Time: 09/09/24 14:59
[2024-09-09] MEDS: 0.9% Normal Saline (1000mL) 1,000 ML 999 ML IV (09:51)
[2024-09-09] MEDS: Ondansetron 4 MG/2 ML Vial IV (09:52)
[2024-09-09 09:53] LABS: Absolute Lymphocyte Count 1.39 X10^3/uL (0.83-4.51); Absolute Neutrophil Count 5.5 X10^3/uL (2.0-7.7); Basophil# 0.05 X10^3/uL; Basophil% 0.7 % (0-1); Eosinophil# 0.03 X10^3/uL; Eosinophils% 0.4 % (0-5); Hematocrit 36.5 % (37-47); Hemoglobin 12.2 g/dL (12.0-15.0); Lymphocyte # 1.39 X10^3/ul (0.83-4.51); Lymphocyte % 18.5 % (19-41); Mean Corp Hgb Conc 33.4 g/dL (32-36); Mean Corpuscular Hgb 29.5 pg (27.0-32.0); Mean Corpuscular Volume 88.2 fL (81-99); Mean Platelet Vol. 8.9 fl (6.2-12.0); Monocyte# 0.51 X10^3/uL; Monocyte% 6.8 % (0-10); NRBC Flagged by Analyzer 0 % (0-5); Neutrophil % 73.2 % (47-70); Platelet Count 302 K/mm3 (150-450); RBC Distribution Width CV 13.6 % (11.6-14.6); RBC Distribution Width SD 44.1 fl (35.1-43.9); Red Blood Count 4.14 M/mm3 (4.2-5.4); White Blood Count 7.5 K/mm3 (4.4-11.0)
--- NOTE | 2024-09-09 10:10 | RAD_ITS ---
HISTORY: vomiting TECHNIQUE: XR Abdomen Series W/ Chest 1 View. COMPARISON: 01/12/2021. FINDINGS: --Chest: CARDIOMEDIASTINAL BORDERS: Cardiac silhouette and mediastinal contour within normal limits in size. Mild calcification of the aortic knob. LUNGS: Radiographically clear. PLEURA: No pneumothorax or significant pleural effusion. BONES: Unremarkable. --Abdomen: BOWEL GAS PATTERN: No dilated bowel loops identified. Scattered stool, air, and fluid in the colon down to the level of the rectum. FREE AIR: None visualized on upright view. CALCIFICATIONS: Vascular calcifications observed. BONES AND SOFT TISSUES: Mild degenerative changes of the osseous structures. RAD/Acute Abdomen Inc Chest IMPRESSION: Mild air fluid levels in the colon, which can be seen with gastroenteritis/diarrheal illness. Electronically Signed: Arti Palafox MD at 10:37 EST ,
[2024-09-09 10:16] LABS: Anion Gap 8 (5-15); BUN 10 mg/dL (7-18); BUN/Creat Ratio 8.2 RATIO (10-20); Calcium,Total 9.5 mg/dL (8.5-10.1); Chloride 103 mmol/L (98-107); Creatinine, Serum 1.22 mg/dL (0.55-1.02); EST Glomerular Filtration Rate 45 mL/min (>60); Est Glom Filt Rate - Afr Amer 55 mL/min (>60); Estimated Creatinine Clearance 25.28 ml/min; Glucose 132 mg/dL (74-106); Potassium 3.8 mmol/L (3.5-5.1); Sodium Level 137 mmol/L (136-145)
[2024-09-09 11:10] VITALS: BP 128/74; PULSE 80; RESP 16
[2024-09-09 11:48] LABS: Bacteria 0 SEEN /hpf (None Seen); Mucous, Urine 0 SEEN /hpf (<or=2+); Red Blood Cells-Urine 0 SEEN /hpf (0-5); White Blood Cells 0 SEEN /hpf (0-5)
[2024-09-09 11:52] LABS: Color, Urine Yellow (Yellow); Glucose, Dipstick Normal (Normal); Ketone-Dipstick Negative (Negative); Leukocyte Esterase-Dipstick 100 /ul (Negative); Nitrite-Dipstick Negative (Negative); Occult Blood-Urine Negative /ul (Negative); Protein-Dipstick Negative (Negative); Urine Bilirubin Dipstick Negative (Negative); Urine Clarity Clear (Clear); Urine Urobilinogen Normal (Normal)
[2024-09-09 12:01] LABS: Squamous Epithelial Cells - UA 0-5 SEEN /hpf (5-10)
[2024-09-09 14:57] VITALS: BP 116/78; PULSE 80; RESP 16; TEMP 36.3; O2SAT 98
--- NOTE | 2024-09-09 19:21 | CM.ED ---
Social Work Reason for visit: safety concerns Patient stated the reason for her coming to the ED was because ?guesses? she was having trouble keeping anything down. ?Patient referred to her granddaughters friend to confirm her statement.?? GD friend stated that over the last few days, patient had been having trouble keeping food and liquids down.?? Patient was pleasant and cooperative, but was unable to provide details of events over the last several weeks.?? When asked the year, patient stated it was 2021.? Was unable to state the month or date.?? Patients granddaughter is primarily responsible for ensuring patient is being taken care of, but lives in [place], [place].? Granddaughters friend lives locally and has been periodically checking on patient.?? Patients primary care physician voiced concerns regarding patient living on her own due to her cognitive decline.?? Patients granddaughter was consulted regarding patients living arrangement and GD stated that patient does not want to move from her home and the GD is trying to honor that choice.?? Patient does have [employer] involved, an aide comes to the home Saturday through for 3 hours a day and 2 hours a day on Fridays. Anca from [facility] was also contacted to determine if patient would be able to receive additional hours of home health services. ?Anca stated she would assess patient when she was home from the hospital and see what services were available. ??GD also requested that Hospice be contacted to see if patient is eligible.? This was also discussed with patient who agreed with referral.??? Referral was made to [facility].? ONIEL discussed with granddaughter that patient may need a legal guardian since there is no HPOA.?? ONIEL explained to GD that since she [place] out of state, she would be unable to be appointed. OSORIO stated there were a few other people that may be willing to be patients guardian and that she would discuss the idea with them.? ??Guardianship process explained to GD, GD voiced understanding of same. Norma Walls, WHEEL AND PINION INSPECTOR, CLIENT ONBOARDING ANALYST
== END 2024-09-09 14:59 | disposition home or self-care (01) ==
PROVIDERS: Emergency Provider Emergency Medicine; PCP Family Medicine; Visit Provider Emergency Medicine
DX: R11.2 Nausea with vomiting, unspecified (principal); F03.90 Unspecified dementia, unspecified severity, without behavioral disturbance, psychotic disturbance, mood disturbance, and anxiety; E78.5 Hyperlipidemia, unspecified; E86.0 Dehydration; I10 Essential (primary) hypertension; E03.9 Hypothyroidism, unspecified; F32.A Depression, unspecified; F17.200 Nicotine dependence, unspecified, uncomplicated; Z79.82 Long term (current) use of aspirin; Z79.890 Hormone replacement therapy; Z79.899 Other long term (current) drug therapy
CPT/HCPCS: 74022; 80048; 81001; 85025; 96361; 96374; 99285; A4216; J2405